=== PATIENT | female | born 1960 | race Caucasian/White ===

== ENCOUNTER 2020-09-19 08:36 | Day surgery (SDC) | payer MEDICAID, SELFPAY ==
[2020-09-12 14:22] VITALS: BMI 27.4
--- NOTE | 2020-09-16 09:32 | HO.ANESPROP2 ---
Documented by User: Zonia Villatoro 09/16/20 09:37 HPI - Anesthesia Eval Consult details Narrative: 59yo F for Upper Endoscopy and Colonoscopy PMFSH Past Medical History Medical History (Updated 09/19/20 @ 09:19 by Liseth Hills RN) Anxiety Arthritis Asthma Back pain Depression DVT (deep venous thrombosis) Former cigarette smoker GERD (gastroesophageal reflux disease) Heart murmur Hepatitis History of celiac disease History of cocaine abuse History of frequent headaches History of heroin abuse HIV (human immunodeficiency virus infection) Hydradenitis Lumbago with sciatica, left side On anticoagulant therapy Panic attacks Parkinson disease PTSD (post-traumatic stress disorder) Recovering alcoholic Seizure Surgical History Surgical History H/O excision of ganglion cyst History of carpal tunnel surgery of left wrist History of hemorrhoidectomy Hx of colonoscopy Hx of esophagogastroduodenoscopy Hx of nasal septoplasty Social History Social History (Updated 09/19/20 @ 09:19 by Leilani Pierre) Are you a primary hemodialysis patient care specialist to a significant other at home: No Do you presently have visiting nurse or other home services: Yes Smoking Status: Former smoker Smoked in Last 30 Days: No Smoking Quit Date: 6 months ago Second Hand Smoke Exposure: Yes Use of substances other than those prescribed or required for medical reasons: No Last Used Substance Other:: Denies any recent drug use Advance Directives: No Advance Directives Information Provided: No Advance Directives on File: No Recently lost weight without trying: No Meds Allergies Allergy/AdvReac Type Severity Reaction Status Date / Time fluoxetine [From PROZAC] Allergy Severe ANNETTE Verified 09/19/20 06:14 cat dander [CATS] Allergy Mild HAYFEVER Verified 09/19/20 06:14 Chocolate Allergy Mild HEADACHES Verified 09/19/20 06:14 dog dander [DOGS] Allergy Mild HAYFEVER Verified 09/19/20 06:14 Environmental Allergy Mild HAYFEVER Uncoded 09/12/20 14:08 Home Medications Medication Instructions Recorded Confirmed Type acetaminophen [Tylenol Ex Str 500 mg PO BID 09/12/20 09/12/20 History Rapid Release] albuterol sulfate [ProAir HFA] 2 puff INHALATION QID PRN 09/12/20 09/12/20 History apixaban [Eliquis] 5 mg PO BID 09/12/20 09/12/20 History carbidopa-levodopa 1 tab PO BID 09/12/20 09/12/20 History cetirizine 10 mg PO DAILY 09/12/20 09/12/20 History cholecalciferol (vitamin D3) 25 mcg PO DAILY 09/12/20 09/12/20 History [Vitamin D3] clonazepam 1 mg PO BID 09/12/20 09/12/20 History diphenhydramine HCl [Benadryl] 25 mg PO BID PRN 09/12/20 09/12/20 History fluticasone propionate [Flonase 2 spray INTRANASAL DAILY 09/12/20 09/12/20 History Allergy Relief] gabapentin 300 mg PO BEDTIME 09/12/20 09/12/20 History omega 9-agt-mmn-fish oil [Fish Oil] 1 cap PO DAILY 09/12/20 09/12/20 History primidone 50 mg PO BEDTIME 09/12/20 09/12/20 History topiramate 200 mg PO BID 09/12/20 09/12/20 History zolpidem 5 mg PO BEDTIME 09/12/20 09/12/20 History Exam Exam Date and Time: September 16, 2020 0932 Height,Weight and Vital Signs: Height 5 ft 2 in Weight 68.039 kg Pertinent Lab Results Pertinent Lab Results: Laboratory Tests 07/06/20 07/06/20 03:15 03:15 WBC 9.4 Hgb 11.4 L Hct 34.6 L Plt Count 225 Sodium 140 Potassium 3.5 Chloride 107 BUN 19 H Creatinine 1.03 Laboratory Tests 08/08/20 08/08/20 11:30 11:30 Urine Opiates Screen NOT DETECTED Ur Barbiturates Screen POSITIVE H Phencyclidine Screen NOT DETECTED Ur Amphetamines Screen NOT DETECTED U Benzodiazepines Scrn NOT DETECTED Cocaine & Metab (GC/MS) negative Urine Cocaine Screen NOT DETECTED U Cannabinoids Screen NOT DETECTED Narrative Narrative: EKG 06/2020: SB@59 Assessment and Plan Assessment Anesthesia Assessment: Chart Reviewed Documented by User: Leilani Pierre 09/19/20 09:22 [facility] Past Medical History Medical History (Updated 09/19/20 @ 09:19 by Liseth Hills RN) Anxiety Arthritis Asthma Back pain Depression DVT (deep venous thrombosis) Former cigarette smoker GERD (gastroesophageal reflux disease) Heart murmur Hepatitis History of celiac disease History of cocaine abuse History of frequent headaches History of heroin abuse HIV (human immunodeficiency virus infection) Hydradenitis Lumbago with sciatica, left side On anticoagulant therapy Panic attacks Parkinson disease PTSD (post-traumatic stress disorder) Recovering alcoholic Seizure Family History Family history of problems with anesthesia: No Surgical History Surgical History H/O excision of ganglion cyst History of carpal tunnel surgery of left wrist History of hemorrhoidectomy Hx of colonoscopy Hx of esophagogastroduodenoscopy Hx of nasal septoplasty History of Problems with Anesthesia: No Social History Social History (Updated 09/19/20 @ 09:19 by Leilani Pierre) Are you a primary hemodialysis patient care specialist to a significant other at home: No Do you presently have visiting nurse or other home services: Yes Smoking Status: Former smoker Smoked in Last 30 Days: No Smoking Quit Date: 6 months ago Second Hand Smoke Exposure: Yes Use of substances other than those prescribed or required for medical reasons: No Last Used Substance Other:: Denies any recent drug use Advance Directives: No Advance Directives Information Provided: No Advance Directives on File: No Recently lost weight without trying: No Meds Allergies Allergy/AdvReac Type Severity Reaction Status Date / Time fluoxetine [From PROZAC] Allergy Severe ANNETTE Verified 09/19/20 06:14 cat dander [CATS] Allergy Mild HAYFEVER Verified 09/19/20 06:14 Chocolate Allergy Mild HEADACHES Verified 09/19/20 06:14 dog dander [DOGS] Allergy Mild HAYFEVER Verified 09/19/20 06:14 Environmental Allergy Mild HAYFEVER Uncoded 09/12/20 14:08 Home Medications Medication Instructions Recorded Confirmed Type acetaminophen [Tylenol Ex Str 500 mg PO BID 09/12/20 09/12/20 History Rapid Release] albuterol sulfate [ProAir HFA] 2 puff INHALATION QID PRN 09/12/20 09/12/20 History apixaban [Eliquis] 5 mg PO BID 09/12/20 09/12/20 History carbidopa-levodopa 1 tab PO BID 09/12/20 09/12/20 History cetirizine 10 mg PO DAILY 09/12/20 09/12/20 History cholecalciferol (vitamin D3) 25 mcg PO DAILY 09/12/20 09/12/20 History [Vitamin D3] clonazepam 1 mg PO BID 09/12/20 09/12/20 History diphenhydramine HCl [Benadryl] 25 mg PO BID PRN 09/12/20 09/12/20 History fluticasone propionate [Flonase 2 spray INTRANASAL DAILY 09/12/20 09/12/20 History Allergy Relief] gabapentin 300 mg PO BEDTIME 09/12/20 09/12/20 History omega 5-nsb-rex-fish oil [Fish Oil] 1 cap PO DAILY 09/12/20 09/12/20 History primidone 50 mg PO BEDTIME 09/12/20 09/12/20 History topiramate 200 mg PO BID 09/12/20 09/12/20 History zolpidem 5 mg PO BEDTIME 09/12/20 09/12/20 History Exam Height,Weight and Vital Signs: Vital Signs Temp Pulse Resp BP Pulse Ox 09/19/20 09:02 98.8 F 69 18 148/80 H 97 Airway Mallampati Class: II TM Dist: >3cm Neck ROM: Full Denture: Upper Partial: Lower Heart: RRR Lungs: CTAB Assessment and Plan Assessment Anesthesia Assessment: Anesthesia Plan Discussed and Chart Reviewed Final Anesthetic Review NPO: Yes ASA Class: III Final Preanesthetic Review: No Changes in Pt Med Stat, Consent Obtained/Reviewed and Anes Risks/Benef Reviewed Patient Risk: Intermediate Procedure Risk: Low Anesthetic Plan Anesthetic Plan: MAC: Disposition: Standard PACU
[2020-09-19 09:02] VITALS: BP 148/80; PULSE 69; RESP 18; TEMP 37.1; O2SAT 97
[2020-09-19] MEDS: Lactated Ringers 1,000 ML 100 ML IVCONT (09:04)
[2020-09-19 10:18] VITALS: BP 122/64; PULSE 72; RESP 14; TEMP 36.1; O2SAT 99
--- NOTE | 2020-09-19 10:29 | PM.OP ---
Brief Operative Note Date of procedure: 09/19/20 Pre-op diagnosis: Celiac disease, Screening, Hx of colon polyps Post-op diagnosis: other (Small hiatal hernia, colon polyps , diverticulosis, internal hemorrhoids) Procedure: EGD with biopsy. Colonoscopy to cecum and TI with biopsy, snare polypectomy, and placement of a Resolution clip on the rectal polypectomy site Surgeon: Boris Quinones Anesthesia: MAC Estimated blood loss (mL): 4.0 Pathology: other (A. Descending duodenum B. Ascending colon polyp C. Transverse colon polyp D. Rectal polyp) Condition: stable Disposition: PACU
[2020-09-19 10:36] VITALS: BP 123/47; PULSE 71; RESP 18; O2SAT 99
--- NOTE | 2020-09-19 10:48 | OP_ITS ---
SURGEON: Boris Quinones MD INDICATIONS: Full consent has been obtained from her for this, including risks of bleeding and perforation. PREOPERATIVE DIAGNOSIS: POSTOPERATIVE DIAGNOSIS: PROCEDURE PERFORMED: Esophagogastroduodenoscopy with biopsies, and colonoscopy to the cecum and terminal ileum with snare polypectomy, biopsy and removal of polyps, and placement of a resolution clip. ESTIMATED BLOOD LOSS: COMPLICATIONS: ANESTHESIA: Monitored anesthesia care. ASSISTANTS: SPECIMENS: PREOPERATIVE DIAGNOSES: History of celiac disease, personal history of tubular adenoma of the colon, colorectal cancer screening. POSTOPERATIVE DIAGNOSES: History of celiac disease, personal history of tubular adenoma of the colon, colorectal cancer screening, small hiatal hernia, colon polyps, diverticulosis, internal hemorrhoids. DESCRIPTION OF PROCEDURE: The patient was placed in the left lateral decubitus position. The Olympus video gastroscope was passed in the posterior oropharynx and upper esophagus under direct vision. The scope was passed slowly into the distal esophagus. The gastroesophageal junction appeared normal at 38 cm. There was no sign of any esophagitis nor Claudio's esophagus. The scope was entered into the stomach. There was a small hiatal hernia. The scope was advanced to pylorus and duodenum cannulated to the descending portion. The duodenum including the bulb was carefully inspected and appeared grossly normal. I did not really appreciate any sign of scalloping. Biopsies were obtained from the 2nd and 3rd portions of duodenum. The scope was withdrawn back in the stomach. The gastric antrum and body appeared normal with good peristalsis. The scope was retroflexed visualizing the proximal stomach carefully which appeared normal, without any sign of mass or ulceration. The scope was straightened and withdrawn back into the esophagus. The esophageal mucosa appeared normal. The scope was withdrawn from the patient. She was turned around for the colonoscopy. The digital rectal exam revealed no abnormalities. The Olympus video pediatric colonoscope was entered into the rectum and advanced easily to the cecum. Once in the cecum, I did identify normal-appearing cecal pouch with appendiceal orifice and a normal-appearing ileocecal valve. The terminal ileum was cannulated and appeared normal. The scope was withdrawn back in the colon. The entire cecum and ileocecal valve appeared normal. The scope was slowly withdrawn assessing all mucosal surfaces carefully. Preparation was excellent. In the ascending colon and in the transverse colon, were flat approximately 4 mm polyp, which both biopsied and completely removed with cold biopsy forceps. There was a mild amount of sigmoid diverticulosis. I did not visualize any sign of colitis nor angiodysplasia. In the rectum, in the forward viewing position, was an approximately 6 mm grossly adenomatous polyp, which was snared and recovered by suction. The polypectomy site appeared clean, without any sign of residual polyp nor bleeding. The scope was retroflexed visualizing some internal hemorrhoids, but no other pathology. The scope was straightened. A single resolution clip was placed on the polypectomy site due to the fact that she has to go back on her Eliquis. There was good deployment and good hemostasis. The scope was withdrawn from the patient. She tolerated the procedure well and was returned to the recovery area in stable condition. IMPRESSION: 1. Small hiatal hernia, history of celiac disease. 2. Colon polyps, status post biopsy and removal, and snare polypectomy. 3. Diverticulosis. 4. Internal hemorrhoids. PLAN: The results of the pathology will be checked. I would recommend a repeat colonoscopy in 5 years for further screening. She was advised to try to stay on a gluten free diet. She was advised to resume her Eliquis in 48 hours. Given that she has to go back on Eliquis, she was advised that it would be best that she stay off all aspirin and NSAID products long-term. She was advised to see me as needed. MD STEWART Baron/YANIRA / [phone] MTDD
[2020-09-19 10:53] VITALS: BP 130/71; PULSE 70; RESP 16; TEMP 36.5; O2SAT 99
--- NOTE | 2020-09-19 11:05 | HO.POSTANES ---
Post Anesthesia Evaluation Post Anesthesia Evaluation Vital Signs: Vital Signs Temp Pulse Resp BP Pulse Ox 09/19/20 10:53 97.7 F 70 16 130/71 99 09/19/20 10:36 71 18 123/47 L 99 09/19/20 10:18 96.9 F 72 14 122/64 99 09/19/20 09:02 98.8 F 69 18 148/80 H 97 Anesthesia: Monitored Mental Status: Awake Pain Control: Satisfactory Nausea/Vomiting: None Hydration: Adequate Anesthesia-Related Issues: No Anes. Related Issues
== END 2020-09-19 11:35 | disposition home or self-care (01) ==
PROVIDERS: PCP Emergency Medicine; Visit Provider Internal Medicine
PROC: (CPT 45385; principal; 2020-09-19 09:40)
DX: Z12.11 Encounter for screening for malignant neoplasm of colon (principal); Z86.010 Personal history of colon polyps; D12.2 Benign neoplasm of ascending colon; D12.3 Benign neoplasm of transverse colon; D12.8 Benign neoplasm of rectum; K57.30 Diverticulosis of large intestine without perforation or abscess without bleeding; K64.8 Other hemorrhoids; K90.0 Celiac disease; K29.80 Duodenitis without bleeding; K44.9 Diaphragmatic hernia without obstruction or gangrene; G20 Parkinson's disease; J45.909 Unspecified asthma, uncomplicated; Z79.51 Long term (current) use of inhaled steroids; Z79.01 Long term (current) use of anticoagulants; Z79.899 Other long term (current) drug therapy; F10.20 Alcohol dependence, uncomplicated; Z87.891 Personal history of nicotine dependence
CPT/HCPCS: 45385; 45380; 43239; 88305; J2370

== ENCOUNTER 2020-09-22 08:07 | Outpatient (REF) | payer MEDICAID, SELFPAY ==
--- NOTE | 2020-09-22 | US_ITS ---
EXAMINATION: MM DIAGNOSTIC DIGITAL BREAST TOMOSYNTHESIS, BILATERAL US TARGETED BREAST, LEFT CLINICAL INFORMATION: Left breast pain and palpable abnormality. Screening right breast study. The lifetime risk of breast cancer based on the Tyrer-Cuzick Model is 6.3%. COMPARISON: Mammography: 09/09/2019 and studies dating back to 12/27/2014 TECHNIQUE: Digital breast tomosynthesis is performed in both the craniocaudal and mediolateral oblique views along with computer-aided detection (CAD). Synthesized 2D images are generated from the tomosynthesis. Targeted left breast ultrasound. FINDINGS: There are scattered areas of fibroglandular density (ACR BI-RADS breast composition Category b). There are no significant masses, abnormal calcifications, or other abnormalities. Targeted ultrasound evaluation in region of pain and palpable abnormality did not demonstrate any abnormal mass or region of abnormal distal sound shadowing. Results are provided to the patient at time of visit by the technologist. US/US breast LT limited IMPRESSION: There are no significant changes from prior study. No ultrasound or mammographic abnormality in region of pain or palpable region upper outer aspect of the left breast. ASSESSMENT: BI-RADS 1: Negative. RECOMMENDATION: Routine annual mammography screening due in 12 months. Clinical followup for pain and palpable abnormality not imaged on ultrasound or mammography. This patient's information was entered into a reminder system with a target due date for their next mammogram.
--- NOTE | 2020-09-22 08:12 | MM_ITS ---
EXAMINATION: MM DIAGNOSTIC DIGITAL BREAST TOMOSYNTHESIS, BILATERAL US TARGETED BREAST, LEFT CLINICAL INFORMATION: Left breast pain and palpable abnormality. Screening right breast study. The lifetime risk of breast cancer based on the Tyrer-Cuzick Model is 6.3%. COMPARISON: Mammography: 09/09/2019 and studies dating back to 12/27/2014 TECHNIQUE: Digital breast tomosynthesis is performed in both the craniocaudal and mediolateral oblique views along with computer-aided detection (CAD). Synthesized 2D images are generated from the tomosynthesis. Targeted left breast ultrasound. FINDINGS: There are scattered areas of fibroglandular density (ACR BI-RADS breast composition Category b). There are no significant masses, abnormal calcifications, or other abnormalities. Targeted ultrasound evaluation in region of pain and palpable abnormality did not demonstrate any abnormal mass or region of abnormal distal sound shadowing. Results are provided to the patient at time of visit by the technologist. MM/MM tomosynthesis diagnostic BI IMPRESSION: There are no significant changes from prior study. No ultrasound or mammographic abnormality in region of pain or palpable region upper outer aspect of the left breast. ASSESSMENT: BI-RADS 1: Negative. RECOMMENDATION: Routine annual mammography screening due in 12 months. Clinical followup for pain and palpable abnormality not imaged on ultrasound or mammography. This patient's information was entered into a reminder system with a target due date for their next mammogram.
== END 2020-09-22 08:08 | disposition home or self-care (01) ==
LOC: HO.MAMMO 08:07
PROVIDERS: PCP Advanced Practice Midwife; Visit Provider Advanced Practice Midwife
DX: N64.4 Mastodynia (principal); N63.20 Unspecified lump in the left breast, unspecified quadrant; Z12.31 Encounter for screening mammogram for malignant neoplasm of breast
CPT/HCPCS: 76642; 77062; 77066

== ENCOUNTER → 2020-10-03 08:46 | Outpatient (BNVA) | payer MEDICAID, SELFPAY | PROVIDERS: PCP Internal Medicine; Visit Provider Anesthesiology | DX: M47.816 Spondylosis without myelopathy or radiculopathy, lumbar region (principal); M47.812 Spondylosis without myelopathy or radiculopathy, cervical region; G62.9 Polyneuropathy, unspecified; F14.10 Cocaine abuse, uncomplicated; Z79.899 Other long term (current) drug therapy | CPT/HCPCS: 99202 ==

== ENCOUNTER 2020-10-10 23:38 | Emergency (ER) | payer MEDICAID, SELFPAY ==
[2020-10-10 23:43] VITALS: BP 146/75; PULSE 79; RESP 16; TEMP 36.7; O2SAT 98; BMI 28.3
--- NOTE | 2020-10-11 00:04 | ECG_ITS ---
Test Reason : CHEST WALL PAIN Blood Pressure : / mmHG Vent. Rate : 062 BPM Atrial Rate : 062 BPM P-R Int : 160 ms QRS Dur : 078 ms QT Int : 402 ms P-R-T Axes : 052 052 045 degrees QTc Int : 408 ms Normal sinus rhythm Normal ECG When compared with ECG of 06-JUL-2020 00:46, No significant change was found Referred By: Generic ED Physician Electronically Signed By:KERRI SOARES MD
--- NOTE | 2020-10-11 00:25 | XR_ITS ---
EXAMINATION: XR CHEST CLINICAL INFORMATION: Chest wall pain COMPARISON: 07/01/2020 TECHNIQUE: Frontal view of the chest was obtained. FINDINGS: Cardiac leads overlie the chest. The lungs are well expanded. There is no focal consolidation, edema, or effusion. No pneumothorax. The cardiomediastinal silhouette is within normal limits. No acute osseous abnormality. XR/XR chest 1V IMPRESSION: No acute pulmonary finding. No focal osseous abnormality identified.
[2020-10-11 00:41] LABS: Basophils Absolute Auto 0.1 X10*3/uL (0.0-0.2); Basophils Percent Auto 0.8 % (0-2); Eosinophils Absolute Auto 0.1 X10*3/uL (0.0-0.4); Eosinophils Percent Auto 1.7 % (0-4); Hematocrit 34.7 % (37-47); Hemoglobin 11.5 g/dl (12.0-16.0); Imm Gran Abs Auto 0.02 X10*3/uL (0.00-0.03); Imm Gran Pct Auto 0.3 % (0.0-0.4); Lymphocytes Absolute Auto 2.2 X10*3/uL (1.2-4.9); Lymphocytes Percent Auto 30.2 % (20-40); MANUAL DIFF FLAG NO; Mean Corpuscular HGB Conc 33.1 g/dl (31.0-35.0); Mean Corpuscular Hemoglobin 33.1 pg (27.0-33.0); Mean Platelet Volume 9.5 fL (9.4-12.3); Monocytes Absolute Auto 0.8 X10*3/uL (0.1-1.2); Monocytes Percent Auto 10.9 % (2-11); Neutrophils Absolute Auto 4.1 X10*3/uL (2.0-8.3); Neutrophils Percent Auto 56.1 % (45-73); Platelet Count 249 X10*3/uL (160-400); Red Blood Count 3.47 X10*6/uL (4.20-5.50); White Blood Count 7.3 X10*3/uL (4.8-10.8)
[2020-10-11 01:06] LABS: Anion Gap 11 (12-20); Blood Urea Nitrogen 18 mg/dL (9-16); Calcium 8.7 mg/dL (8.4-10.2); Carbon Dioxide 22 mmol/L (22-29); Chloride 109 mmol/L (96-108); Creatinine Clr Calc Pharmacy 48.6; Estimated Glomerular Filt Rate 49; Glucose Random 93 mg/dL (60-115); Potassium 4.3 mmol/l (3.3-5.1); Sodium 138 mmol/L (135-145)
[2020-10-11 01:11] LABS: Troponin-I High Sensitivity 5.3 ng/L (<3.5-17.0)
[2020-10-11 01:57] VITALS: BP 141/73; PULSE 68; RESP 15; TEMP 36.9; O2SAT 95
--- NOTE | 2020-10-11 01:59 | ED.GENADULT ---
HPI - General Adult General Chief complaint: General Medical Stated complaint: SHOCKING FEELING IN CHEST Time Seen by Provider: 10/11/20 00:42 Source: patient Mode of arrival: ambulatory Limitations: no limitations History of Present Illness HPI narrative: Patient states for the past 24 hours has been having intermittent shock-like the pain to her central chest. Denies nausea vomiting denies diaphoresis denies dizziness. Patient states intermittent electricity lasting seconds. Came in tonight secondary to pain continue you. Denies radiation MD complaint: Chest pain Onset (ago): day(s) (24 hours) Location: chest Radiation: non-radiation Severity: moderate Severity scale (1-10): 5 Quality: other Exacerbating factors: none Related Data Home Medications Medication Instructions Recorded Confirmed acetaminophen [Tylenol Ex Str 500 mg PO BID 09/12/20 10/11/20 Rapid Release] albuterol sulfate [ProAir HFA] 2 puff INHALATION QID PRN 09/12/20 10/11/20 apixaban [Eliquis] 5 mg PO BID 09/12/20 10/11/20 carbidopa-levodopa 1 tab PO BID 09/12/20 10/11/20 cetirizine 10 mg PO DAILY 09/12/20 10/11/20 cholecalciferol (vitamin D3) 25 mcg PO DAILY 09/12/20 10/11/20 [Vitamin D3] clonazepam 1 mg PO BID 09/12/20 10/11/20 diphenhydramine HCl [Benadryl] 25 mg PO BID PRN 09/12/20 10/11/20 fluticasone propionate [Flonase 2 spray INTRANASAL DAILY 09/12/20 10/11/20 Allergy Relief] gabapentin 300 mg PO BEDTIME 09/12/20 10/11/20 omega [id number]-fish oil [Fish Oil] 1 cap PO DAILY 09/12/20 10/11/20 primidone 50 mg PO BEDTIME 09/12/20 10/11/20 topiramate 200 mg PO BID 09/12/20 10/11/20 zolpidem 5 mg PO BEDTIME 09/12/20 10/11/20 Previous Rx's Medication Instructions Recorded magnesium oxide 500 mg capsule 500 mg PO DAILY 30 Days #30 cap 10/03/20 Allergies Allergy/AdvReac Type Severity Reaction Status Date / Time fluoxetine [From PROZAC] Allergy Severe ANNETTE Verified 09/19/20 06:14 cat dander [CATS] Allergy Mild HAYFEVER Verified 09/19/20 06:14 Chocolate Allergy Mild HEADACHES Verified 09/19/20 06:14 dog dander [DOGS] Allergy Mild HAYFEVER Verified 09/19/20 06:14 Environmental Allergy Mild HAYFEVER Uncoded 09/12/20 14:08 Review of Systems Review of Systems: Constitutional : No Weight loss, No Fever, No Chills, No Night Sweats, No Fatigue, No Malaise ENT/Mouth : No Hearing loss, No Ear Pain, No Nasal Congestion, No Sinus Pain, No Hoarseness, No sore throat, No Rhinorrhea, No Swallowing Difficulty Eyes: No Eye Pain, No Swelling, No Redness, No Foreign Body, No Discharge, No Vision Changes Cardiovascular : Positive Chest Pain, No SOB, No Dyspnea on Exertion, No Orthopnea, No Edema, No Palpitations Respiratory : No Cough, No Sputum, No Wheezing, No Smoke Exposure, No Dyspnea Gastrointestinal : No Nausea, No Vomiting, No Diarrhea, No Constipation, No abdominal Pain, No Hematochezia, No Melena Genitourinary : no irregular bleeding, No Dysuria, No Urinary Frequency, No Hematuria, No Urinary Incontinence, No Urgency, No Flank Pain, No Urinary Flow Changes, No Hesitancy Musculoskeletal : No joint pain, No Myalgias, No Joint Swelling Skin : No Skin Lesions, No rash Neuro : No Weakness, No Numbness, No Paresthesias, No Loss of Consciousness, No Dizziness, No Headache Psych : No Anxiety/Panic, No Depression, No SI/HI/AH/VH, No Social Issues, Heme/Lymph: No Bruising, No Bleeding,No Lymphadenopathy Endocrine : No Polyuria, No Polydipsia, No Temperature Intolerance [facility] Past Medical History Medical History Alcohol abuse Anxiety Arthritis Asthma Back pain Cocaine abuse Depression DVT (deep venous thrombosis) Former cigarette smoker GERD (gastroesophageal reflux disease) Heart murmur Hepatitis History of celiac disease History of cocaine abuse History of frequent headaches History of heroin abuse HIV (human immunodeficiency virus infection) Hydradenitis Lumbago with sciatica, left side On anticoagulant therapy Panic attacks Parkinson disease Peripheral polyneuropathy PTSD (post-traumatic stress disorder) Recovering alcoholic Seizure Spondylosis of cervical spine Spondylosis of lumbar spine Surgical History H/O excision of ganglion cyst History of carpal tunnel surgery of left wrist History of hemorrhoidectomy Hx of colonoscopy Hx of esophagogastroduodenoscopy Hx of nasal septoplasty Social History Social History Alcohol intake: former Smoking Status: Light tobacco smoker Smoked in Last 30 Days: Yes Second Hand Smoke Exposure: Yes Use of substances other than those prescribed or required for medical reasons: No Advance Directives: No Physical Exam Vital Signs: Vital Signs: Last Vital Signs Temp 98.4 F 10/11/20 01:57 Pulse 79 10/11/20 03:22 Resp 16 10/11/20 03:22 BP 152/85 H 10/11/20 03:22 Pulse Ox 98 10/11/20 03:22 Body Mass Index 28.3 Pulse ox normal interpreted by me. 95% on room air Appearance: Alert. Oriented X3. No acute distress. Eyes: Pupils equal, round and reactive to light. ENT: Pharynx normal. Neck: Normal inspection. Neck supple. No lymph nodes noted. No crepitus CVS: Normal heart rate and rhythm. Pulses normal. Normal S1 and S2 Respiratory: No respiratory distress. Breath sounds normal. No Wheezing. No rales Abdomen: Soft and nontender. No rigidity. No distention. good BS x4 Skin: Skin warm and dry. Normal skin color. Normal skin turgor. Extremities: No lower extremity edema. Neurovascular intact to all extremities. No Lacerations. No Rash Neuro: Oriented X 3. No motor deficit. No sensory deficit. Moving all extermities. No slurred speech. Course Reevaluation(s) Reevaluation #1: Repeat exam without pain to chest. Medical Decision Making MDM Narrative Medical decision making narrative: 60-year-old female with complaints of chest pain for more than 24 hours. Troponin x2 negative EKG negative chest x-ray negative. Mother patient was in the emergency department experience 1 for her electric shocks however there was no changes on monitor. I doubt this point patient has acute coronary syndrome. No shortness of breath and did not pursue the diagnosis of pulmonary embolism will discharge with follow-up with primary care doctor Differential Diagnosis Differential Diagnosis: Acute coronary syndrome pneumonia pneumothorax Lab Data Lab results reviewed: Yes I reviewed the patient's lab results. Result diagrams: 10/11/20 00:36 10/11/20 00:36 Labs: Lab Results 10/11/20 10/11/20 10/11/20 Range/Units 00:36 00:36 00:36 WBC 7.3 (4.8-10.8) X10*3/uL RBC 3.47 L (4.20-5.50) X10*6/uL Hgb 11.5 L (12.0-16.0) g/dl Hct 34.7 L (37-47) % MCV 100.0 H (80-98) fL MCH 33.1 H (27.0-33.0) pg MCHC 33.1 (31.0-35.0) g/dl RDW 14.0 (11.0-16.0) % Plt Count 249 (160-400) X10*3/uL MPV 9.5 (9.4-12.3) fL Immature Gran % (Auto) 0.3 (0.0-0.4) % Neut % (Auto) 56.1 (45-73) % Lymph % (Auto) 30.2 (20-40) % [place] % (Auto) 10.9 (2-11) % Eos % (Auto) 1.7 (0-4) % Baso % (Auto) 0.8 (0-2) % Lymph # (Auto) 2.2 (1.2-4.9) X10*3/uL [place] # (Auto) 0.8 (0.1-1.2) X10*3/uL Eos # (Auto) 0.1 (0.0-0.4) X10*3/uL Baso # (Auto) 0.1 (0.0-0.2) X10*3/uL Abs Immat Gran (auto) 0.02 (0.00-0.03) X10*3/uL Absolute Neuts (auto) 4.1 (2.0-8.3) X10*3/uL Absolute Nucleated RBC 0.000 (0.0-0.012) X10*3/uL Nucleated RBC % (auto) 0.0 (0.0-0.2) /100WBC Hold Blue Top SEE NOTE Sodium (135-145) mmol/L Potassium (3.3-5.1) mmol/l Chloride (96-108) mmol/L Carbon Dioxide (22-29) mmol/L Anion Gap (12-20) BUN (9-16) mg/dL Creatinine (0.5-1.4) mg/dL Estim Creat Clear Calc Estimated GFR Random Glucose (60-115) mg/dL Calcium (8.4-10.2) mg/dL Troponin I High Sens 5.3 (<3.5-17.0) ng/L 10/11/20 10/11/20 Range/Units 00:36 02:43 WBC (4.8-10.8) X10*3/uL RBC (4.20-5.50) X10*6/uL Hgb (12.0-16.0) g/dl Hct (37-47) % MCV (80-98) fL MCH (27.0-33.0) pg MCHC (31.0-35.0) g/dl RDW (11.0-16.0) % Plt Count (160-400) X10*3/uL MPV (9.4-12.3) fL Immature Gran % (Auto) (0.0-0.4) % Neut % (Auto) (45-73) % Lymph % (Auto) (20-40) % [place] % (Auto) (2-11) % Eos % (Auto) (0-4) % Baso % (Auto) (0-2) % Lymph # (Auto) (1.2-4.9) X10*3/uL [place] # (Auto) (0.1-1.2) X10*3/uL Eos # (Auto) (0.0-0.4) X10*3/uL Baso # (Auto) (0.0-0.2) X10*3/uL Abs Immat Gran (auto) (0.00-0.03) X10*3/uL Absolute Neuts (auto) (2.0-8.3) X10*3/uL Absolute Nucleated RBC (0.0-0.012) X10*3/uL Nucleated RBC % (auto) (0.0-0.2) /100WBC Hold Blue Top Sodium 138 (135-145) mmol/L Potassium 4.3 (3.3-5.1) mmol/l Chloride 109 H (96-108) mmol/L Carbon Dioxide 22 (22-29) mmol/L Anion Gap 11 L (12-20) BUN 18 H (9-16) mg/dL Creatinine 1.13 (0.5-1.4) mg/dL Estim Creat Clear Calc 48.6 Estimated GFR 49 Random Glucose 93 (60-115) mg/dL Calcium 8.7 (8.4-10.2) mg/dL Troponin I High Sens 3.7 (<3.5-17.0) ng/L ECG Data Attestation: I personally reviewed and interpreted this ECG as follows: Pacemaker model: 62 beats per minute. Normal sinus rhythm. Normal axis. No ST-T changes Discharge Plan Discharge Clinical Impression: Chest pain Qualifiers: Chest pain type: unspecified Qualified Code(s): R07.9 - Chest pain, unspecified Patient Disposition: Home, Self-Care Instructions: Chest Pain (ED) Additional Instructions: Thank you for visiting the emergency department today. If your symptoms worsen or do not resolve completely please return to the emergency department immediately or call 911. if he have any questions please call your primary care physician Prescriptions: No Action primidone 50 mg Tablet 50 mg PO BEDTIME RF: 0 carbidopa-levodopa 25-100 mg Tablet Extended Release 1 tab PO BID RF: 0 cetirizine 10 mg Tablet 10 mg PO DAILY RF: 0 clonazepam 1 mg Tablet 1 mg PO BID RF: 0 acetaminophen [Tylenol Ex Str Rapid Release] 500 mg Tablet 500 mg PO BID RF: 0 diphenhydramine HCl [Benadryl] 25 mg Capsule 25 mg PO BID PRN (Reason: Allergic Symptoms) RF: 0 topiramate 200 mg Tablet 200 mg PO BID RF: 0 zolpidem 5 mg Tablet 5 mg PO BEDTIME RF: 0 albuterol sulfate [ProAir HFA] 90 mcg/actuation Hfa Aerosol Inhaler 2 puff INHALATION QID PRN (Reason: Wheezing) RF: 0 fluticasone propionate [Flonase Allergy Relief] 50 mcg/actuation [place],Suspension 2 spray INTRANASAL DAILY RF: 0 cholecalciferol (vitamin D3) [Vitamin D3] 25 mcg (1,000 unit) Capsule 25 mcg PO DAILY RF: 0 gabapentin 300 mg Tablet 300 mg PO BEDTIME RF: 0 omega 2-gza-udc-fish oil [Fish Oil] 1,000 mg (120 mg-180 mg) Capsule 1 cap PO DAILY RF: 0 Eliquis 5 mg Tablet 5 mg PO BID RF: 0 magnesium oxide 500 mg capsule 500 mg PO DAILY 30 Days Qty: 30 RF: 12 Referrals: [facility] [Provider Group] - 2 days Interventions: ED Discharge Assessment Last Done: 10/11/20 03:37 Discharge Date/Time: 10/11/20 03:46
[2020-10-11 03:15] LABS: Troponin-I High Sensitivity 3.7 ng/L (<3.5-17.0)
[2020-10-11 03:22] VITALS: BP 152/85; PULSE 79; RESP 16; O2SAT 98
== END 2020-10-11 03:46 | disposition home or self-care (01) ==
PROVIDERS: Emergency Provider Emergency Medicine; PCP General Practice
DX: R07.9 Chest pain, unspecified (principal); F17.200 Nicotine dependence, unspecified, uncomplicated; Z71.6 Tobacco abuse counseling; Z79.899 Other long term (current) drug therapy
CPT/HCPCS: 36415; 71045; 80048; 84484; 85025; 93005; 99284

== ENCOUNTER 2020-12-07 10:48 | Outpatient (REF) | payer MEDICAID, SELFPAY ==
--- NOTE | 2020-12-07 10:57 | XR_ITS ---
EXAMINATION: XR CHEST AND RIGHT RIBS XR CERVICAL SPINE XR LUMBAR SPINE XR SACRUM AND COCCYX CLINICAL INFORMATION: Injury lower back, neck pain, right rib pain. COMPARISON: Chest x-ray of 10/11/2020, cervical spine of 06/27/2020 and lumbar spine of 07/01/2020. TECHNIQUE: PA chest and three-view right ribs. Three-view lumbar spine. Three-view sacrum and coccyx. 5 view cervical spine. FINDINGS: PA film of the chest does not demonstrate any evidence of acute parenchymal disease, pneumothorax, or pleural effusion. Heart normal size. No evidence of pulmonary edema. Views of the right ribs do not demonstrate any evidence of acute displaced fracture. No destructive bony lesions identified. No acute sacral or coccygeal fracture is appreciated. No widening or fusion of the sacroiliac joints is identified. No destructive bony lesion identified. There are 5 nonrib-bearing lumbar vertebra. There is bilateral facet arthropathy and sclerosis seen L5-S1. No acute fractures identified. No spondylolisthesis is seen. Disc spaces are maintained. Pedicles intact. No destructive bony lesions. Views of the cervical spine do not demonstrate any abnormal prevertebral soft tissue swelling. No acute cervical spine fracture is identified. There is mild narrowing of the disc spaces C4 trough C7. There is some spurring of the joints of [place] causing some mild anterior neural foramina encroachment on the right at the C5-C6 level and on the left at the C6-C7 level. XR/XR ribs RT min 3V w CXR1V IMPRESSION: Cervical spondylosis without acute fracture C4 through C7. No acute parenchymal disease within the chest. No right-sided displaced rib fracture or destructive bony lesion identified. No significant sacral or coccygeal abnormality appreciated. Facet arthropathy bilaterally L5-S1 without evidence of acute fracture, spondylolisthesis, or spondylolysis of the lumbar spine.
--- NOTE | 2020-12-07 11:00 | XR_ITS ---
EXAMINATION: XR CHEST AND RIGHT RIBS XR CERVICAL SPINE XR LUMBAR SPINE XR SACRUM AND COCCYX CLINICAL INFORMATION: Injury lower back, neck pain, right rib pain. COMPARISON: Chest x-ray of 10/11/2020, cervical spine of 06/27/2020 and lumbar spine of 07/01/2020. TECHNIQUE: PA chest and three-view right ribs. Three-view lumbar spine. Three-view sacrum and coccyx. 5 view cervical spine. FINDINGS: PA film of the chest does not demonstrate any evidence of acute parenchymal disease, pneumothorax, or pleural effusion. Heart normal size. No evidence of pulmonary edema. Views of the right ribs do not demonstrate any evidence of acute displaced fracture. No destructive bony lesions identified. No acute sacral or coccygeal fracture is appreciated. No widening or fusion of the sacroiliac joints is identified. No destructive bony lesion identified. There are 5 nonrib-bearing lumbar vertebra. There is bilateral facet arthropathy and sclerosis seen L5-S1. No acute fractures identified. No spondylolisthesis is seen. Disc spaces are maintained. Pedicles intact. No destructive bony lesions. Views of the cervical spine do not demonstrate any abnormal prevertebral soft tissue swelling. No acute cervical spine fracture is identified. There is mild narrowing of the disc spaces C4 trough C7. There is some spurring of the joints of [place] causing some mild anterior neural foramina encroachment on the right at the C5-C6 level and on the left at the C6-C7 level. XR/XR sacrum coccyx min 2V IMPRESSION: Cervical spondylosis without acute fracture C4 through C7. No acute parenchymal disease within the chest. No right-sided displaced rib fracture or destructive bony lesion identified. No significant sacral or coccygeal abnormality appreciated. Facet arthropathy bilaterally L5-S1 without evidence of acute fracture, spondylolisthesis, or spondylolysis of the lumbar spine.
== END 2020-12-07 10:49 | disposition home or self-care (01) ==
LOC: HO.XRAY 10:48
PROVIDERS: PCP General Practice; Visit Provider Emergency Medicine
DX: M54.2 Cervicalgia (principal); R07.89 Other chest pain; S39.92XA Unspecified injury of lower back, initial encounter
CPT/HCPCS: 71101; 72052; 72100; 72220

== ENCOUNTER 2020-12-09 07:19 | Outpatient (REF) | payer MEDICAID, SELFPAY ==
--- NOTE | 2020-12-09 07:27 | CT_ITS ---
EXAMINATION: CT CHEST SCREENING CLINICAL INFORMATION: Nicotine dependence. COMPARISON: Chest x-ray 10/11/2020 TECHNIQUE: Multidetector volumetric CT imaging of the chest is performed without contrast using low dose technique. Additional 2D coronal and sagittal reformatted images and axial 3D maximum intensity projection (MIP) images are generated on the CT workstation. This CT examination was performed using dose optimization techniques as appropriate, variously including the following: *Automated exposure control *Adjustment of mA and/or kV according to patient size (this includes techniques or standardized protocols for targeted exams where dose is matched to indication/reason for exam; i.e. extremities or head) *Use of iterative reconstruction technique DLP: 41 mGy-cm FINDINGS: LUNGS: The lungs are well expanded with patchy parenchymal atelectatic changes in the right middle lobe and lingula. No consolidation seen. There are small calcified and noncalcified nodules seen. A 5 mm noncalcified nodule in the left upper lobe adjacent to the major fissure axial image 67/5. Several punctate 2 mm calcified nodules in the right upper lobe image 104/5, centrally in the right upper lobe image 116/5, left upper lobe anterior segment image 164/5, 1 mm nodule in the right upper lobe anterior segment image 206/5,] 235/5. MEDIASTINUM: The thyroid lobes are symmetrical and normal. The central trachea and the bronchi are widely patent. There is atherosclerotic calcification of the thoracic arch but without aneurysmal dilatation. The heart size is normal. No pericardial effusion seen. No abnormal mediastinal lymph nodes or mass seen. PLEURA: There is no pleural thickening, effusion or calcification AXILLA: No lymphadenopathy. UPPER ABDOMEN: The visualized liver, spleen, pancreas, and bilateral adrenal glands are unremarkable. OSSEOUS STRUCTURES: Unremarkable. CT/CT lung screening IMPRESSION: Punctate 2 mm calcified pulmonary nodules. The largest noncalcified pulmonary nodule is 5 mm in left upper lobe. ASSESSMENT: Lung-RADS category 2: Benign. RECOMMENDATION: Low-dose annual CT chest.
== END 2020-12-09 07:20 | disposition home or self-care (01) ==
LOC: HO.CT 07:19
PROVIDERS: Visit Provider Surgery
DX: Z12.2 Encounter for screening for malignant neoplasm of respiratory organs (principal); F17.210 Nicotine dependence, cigarettes, uncomplicated
CPT/HCPCS: 71271

== ENCOUNTER 2020-12-14 07:59 | Outpatient (REF) | payer MEDICAID, SELFPAY ==
[2020-12-17 05:57] LABS: HPV mRNA E6/E7 rflx Not Detected (Not Detected)
== END 2020-12-14 08:00 | disposition home or self-care (01) ==
LOC: HO.LAB 07:59
PROVIDERS: PCP General Practice; Visit Provider Obstetrics & Gynecology
DX: Z01.419 Encounter for gynecological examination (general) (routine) without abnormal findings (principal)
CPT/HCPCS: 36415; 87624; 88142

== ENCOUNTER 2020-12-16 08:46 | Day surgery (SDC) | payer MEDICAID, SELFPAY ==
[2020-12-12 11:10] VITALS: BMI 27.6
--- NOTE | 2020-12-12 15:11 | HO.ANESPROP2 ---
Documented by User: Zonia Christineney 12/12/20 15:22 HPI - Anesthesia Eval Consult details Narrative: 60yo F for Therapeutic Medial Branch Block,L3,L4,DR Nikia Cook for DVT h/o polysub. ? last used cocaine PMFSH Past Medical History Medical History Alcohol abuse Anxiety Arthritis Asthma Back pain Cocaine abuse Depression DVT (deep venous thrombosis) Former cigarette smoker GERD (gastroesophageal reflux disease) Heart murmur Hepatitis History of celiac disease History of cocaine abuse History of frequent headaches History of heroin abuse HIV (human immunodeficiency virus infection) Hydradenitis Lumbago with sciatica, left side On anticoagulant therapy Panic attacks Parkinson disease Peripheral polyneuropathy PTSD (post-traumatic stress disorder) Recovering alcoholic Seizure Spondylosis of cervical spine Spondylosis of lumbar spine Surgical History Surgical History H/O excision of ganglion cyst History of carpal tunnel surgery of left wrist History of hemorrhoidectomy Hx of colonoscopy Hx of esophagogastroduodenoscopy Hx of nasal septoplasty Social History Social History Are you a primary hospice care consultant to a significant other at home: No Alcohol intake: former Year quit: 2003 Smoking Status: Former smoker Years Smoked: Years Smoked in Last 30 Days: No Smoking Quit Date: 04/2020 Second Hand Smoke Exposure: Yes Use of substances other than those prescribed or required for medical reasons: No Substance Use Type: Crack/Cocaine and Heroin Advance Directives: No Advance Directives Information Provided: No Advance Directives on File: No Meds Allergies Allergy/AdvReac Type Severity Reaction Status Date / Time fluoxetine [From PROZAC] Allergy Severe ANNETTE Verified 12/14/20 08:23 cat dander [CATS] Allergy Mild HAYFEVER Verified 12/14/20 08:23 Chocolate Allergy Mild HEADACHES Verified 12/14/20 08:23 dog dander [DOGS] Allergy Mild HAYFEVER Verified 12/14/20 08:23 Environmental Allergy Mild HAYFEVER Uncoded 12/14/20 08:23 Home Medications Medication Instructions Recorded Confirmed Type acetaminophen [Tylenol Ex Str 500 mg PO BID 09/12/20 12/12/20 History Rapid Release] albuterol sulfate [ProAir HFA] 2 puff INHALATION QID PRN 09/12/20 12/12/20 History apixaban [Eliquis] 5 mg PO BID 09/12/20 12/12/20 History carbidopa-levodopa 1 tab PO BEDTIME 09/12/20 12/12/20 History cetirizine 10 mg PO DAILY 09/12/20 12/12/20 History clonazepam 1 mg PO BID 09/12/20 12/12/20 History fluticasone propionate [Flonase 2 spray INTRANASAL DAILY 09/12/20 12/12/20 History Allergy Relief] gabapentin 300 mg PO BEDTIME 09/12/20 12/12/20 History primidone 50 mg PO BID 09/12/20 12/12/20 History topiramate 200 mg PO BID 09/12/20 12/12/20 History carbidopa-levodopa 2 tab PO DAILY@0730 12/12/20 12/12/20 History varenicline [Chantix] 1 mg PO BID 12/12/20 12/12/20 History Exam Exam Date and Time: December 12, 2020 1511 Height,Weight and Vital Signs: Height 5 ft 2 in Weight 68.492 kg Narrative Narrative: EKG 09/2020 Normal sinus rhythm Normal ECG When compared with ECG of 06-JUL-2020 00:46, No significant change was found Assessment and Plan Assessment Anesthesia Assessment: Chart Reviewed Documented by User: Jill Palomo 12/16/20 10:42 [facility] Past Medical History Medical History Alcohol abuse Anxiety Arthritis Asthma Back pain Cocaine abuse Depression DVT (deep venous thrombosis) Former cigarette smoker GERD (gastroesophageal reflux disease) Heart murmur Hepatitis History of celiac disease History of cocaine abuse History of frequent headaches History of heroin abuse HIV (human immunodeficiency virus infection) Hydradenitis Lumbago with sciatica, left side On anticoagulant therapy Panic attacks Parkinson disease Peripheral polyneuropathy PTSD (post-traumatic stress disorder) Recovering alcoholic Seizure Spondylosis of cervical spine Spondylosis of lumbar spine Surgical History Surgical History H/O excision of ganglion cyst History of carpal tunnel surgery of left wrist History of hemorrhoidectomy Hx of colonoscopy Hx of esophagogastroduodenoscopy Hx of nasal septoplasty Social History Social History Are you a primary hospice care consultant to a significant other at home: No Alcohol intake: former Year quit: 2003 Smoking Status: Former smoker Years Smoked: Years Smoked in Last 30 Days: No Smoking Quit Date: 04/2020 Second Hand Smoke Exposure: Yes Use of substances other than those prescribed or required for medical reasons: No Substance Use Type: Crack/Cocaine and Heroin Advance Directives: No Advance Directives Information Provided: No Advance Directives on File: No Meds Allergies Allergy/AdvReac Type Severity Reaction Status Date / Time fluoxetine [From PROZAC] Allergy Severe ANNETTE Verified 12/14/20 08:23 cat dander [CATS] Allergy Mild HAYFEVER Verified 12/14/20 08:23 Chocolate Allergy Mild HEADACHES Verified 12/14/20 08:23 dog dander [DOGS] Allergy Mild HAYFEVER Verified 12/14/20 08:23 Environmental Allergy Mild HAYFEVER Uncoded 12/14/20 08:23 Home Medications Medication Instructions Recorded Confirmed Type acetaminophen [Tylenol Ex Str 500 mg PO BID 09/12/20 12/12/20 History Rapid Release] albuterol sulfate [ProAir HFA] 2 puff INHALATION QID PRN 09/12/20 12/12/20 History apixaban [Eliquis] 5 mg PO BID 09/12/20 12/12/20 History carbidopa-levodopa 1 tab PO BEDTIME 09/12/20 12/12/20 History cetirizine 10 mg PO DAILY 09/12/20 12/12/20 History clonazepam 1 mg PO BID 09/12/20 12/12/20 History fluticasone propionate [Flonase 2 spray INTRANASAL DAILY 09/12/20 12/12/20 History Allergy Relief] gabapentin 300 mg PO BEDTIME 09/12/20 12/12/20 History primidone 50 mg PO BID 09/12/20 12/12/20 History topiramate 200 mg PO BID 09/12/20 12/12/20 History carbidopa-levodopa 2 tab PO DAILY@0730 12/12/20 12/12/20 History varenicline [Chantix] 1 mg PO BID 12/12/20 12/12/20 History Exam Airway Mallampati Class: II TM Dist: >3cm Neck ROM: Full Denture: Upper Partial: Lower
[2020-12-16 10:58] VITALS: BP 125/71; PULSE 52; RESP 16; TEMP 36.1; O2SAT 100
[2020-12-16] MEDS: Lactated Ringers 1,000 ML 100 ML IVCONT (11:12)
--- NOTE | 2020-12-16 12:21 | MHC.SHP ---
Pre-Procedural Eval Section A The patient is an INPATIENT: No The History & Physical has been completed within 30 days and I have reviewed it.: No Section B Chief Complaint: spondylosis of lumbar spine Details of Present Illness: as above Relevant Family History (Specify if Yes): No Relevant Social History: Other (specify) (IVDA now in rehab) Present Medications: see Short Stay Collaborative assessment Medical History: No relevant PMH History of Previous Operations: No relevant previous surgery Allergies: Allergies Allergy/AdvReac Type Severity Reaction Status Date / Time fluoxetine [From PROZAC] Allergy Severe ANNETTE Verified 12/14/20 08:23 cat dander [CATS] Allergy Mild HAYFEVER Verified 12/14/20 08:23 Chocolate Allergy Mild HEADACHES Verified 12/14/20 08:23 dog dander [DOGS] Allergy Mild HAYFEVER Verified 12/14/20 08:23 Environmental Allergy Mild HAYFEVER Uncoded 12/14/20 08:23 Review of Systems Sugical H&P ROS: Negative: Constitution, Cardiovascular, Respiratory, Neurological, Psychiatric, Hem-Onc, Gastrointestinal, Genitourinary, Integumentary, Endocrine and Eyes/Ears/Nose/Throat and Yes, Specify: Allergic/Immunologic (HIV/AIDS) and Musculoskeletal (Spondylosis ) Exam Surgical H&P Exam: Normal: HEENT, Normal: Heart, Normal: Lungs, Normal: Extremities, Normal: Abdomen, Normal: Skin and Normal: Neurological Plan Diagnosis/Plan: Unchanged I have reviewed the history and physical and performed a pertinent physical examination on my patient. No changes have occurred unless specified.
--- NOTE | 2020-12-16 12:22 | FL_ITS ---
EXAMINATION: XR FLUOROSCOPY WITH IMAGES CLINICAL INFORMATION: Medial branch block COMPARISON: None. TECHNIQUE: Fluoroscopy performed by Dr. Rafael Joseph. Fluoroscopy time: 0.6 minutes DAP: 3.6 mGycm2 Images: 5 FINDINGS: Images demonstrate needle placement and contrast injection over the facet joints at the L3, L4 and L5 levels bilaterally FL/FL guidance in OR IMPRESSION: Fluoroscopy guidance for medial branch block.
--- NOTE | 2020-12-16 13:18 | PM.OP ---
Brief Operative Note Date of Service: 12/16/20 Pre-op diagnosis: spondylosis lumbar without myelo/radiculopathy Post-op diagnosis: same Procedure: B/l MBBs L3- L4- DRL5 therapeutic Implants: none Surgeon: Rafael Joseph MD Anesthesia: MAC Estimated blood loss (mL): 1 Pathology: none sent Condition: stable Disposition: PACU
[2020-12-16 13:21] VITALS: BP 94/61; PULSE 62; RESP 14; TEMP 36.2; O2SAT 99
[2020-12-16 13:36] VITALS: BP 125/65; PULSE 51; RESP 18; TEMP 36.2; O2SAT 100
--- NOTE | 2020-12-16 16:19 | W.PM.OPN ---
Operative Note Operative Note Date of Service: 12/16/20 Narrative: Informed consent was explained to the patient. All questions were explained and answered. The patient was taken inside the operating room where she was positioned prone on the operating table.. The patient was taken inside of the operating room where was positioned prone operating table. Time-out was performed delineating correct site, side, the nature of the procedure, patient's allergy, preoperative antibiotic if needed. All operating room staff was participating in OR time-out procedure. The lower back was prepped with ChloraPrep and draped with sterile towels. Sterilely draped C-arm was brought over the operating field and square picture of L4-and L5 vertebra and S1 AREA were delineated on the screen. Point of interest were delineated as connection of superior articular process of L4 and L5 vertebra bilaterally with corresponding transverse processes, as well as connection of the sacral alae bilaterally with superior articular process of S1. The projections of the point of interest to the skin were injected with the small amount of local anesthetic lidocaine 2% 1-1.5 cc. After that 22 gauge spinal needles were driven to the point of interest in tunnel vision fashion. After needles gently contacted the bone at the point of interests the needle was injected with small amount of bupivacaine 0.5%-1cc mixad with kenalog. Total dose of kenalog was 80 mg.. Upon completion of the injections needles were removed and sterile dressings were applied patient was awaken and taken outside of the operating room to recovery room where the patient recovered uneventfully. The patient went home without immediate complications.
== END 2020-12-16 14:27 | disposition home or self-care (01) ==
PROVIDERS: PCP General Practice; Visit Provider Anesthesiology
PROC: (CPT 64493; principal; 2020-12-16 11:00)
DX: M47.816 Spondylosis without myelopathy or radiculopathy, lumbar region (principal); M54.42 Lumbago with sciatica, left side; J45.909 Unspecified asthma, uncomplicated; G20 Parkinson's disease; B20 Human immunodeficiency virus [HIV] disease; K21.9 Gastro-esophageal reflux disease without esophagitis; Z79.51 Long term (current) use of inhaled steroids; Z79.899 Other long term (current) drug therapy; Z88.8 Allergy status to other drugs, medicaments and biological substances; F10.20 Alcohol dependence, uncomplicated; Z87.891 Personal history of nicotine dependence; Z86.59 Personal history of other mental and behavioral disorders; Z86.718 Personal history of other venous thrombosis and embolism; Z79.01 Long term (current) use of anticoagulants
CPT/HCPCS: 64493; 64494 ×2; J2250; J3010; J3300; Q9967

== ENCOUNTER 2020-12-16 22:02 | Emergency (ER) | payer MEDICAID, SELFPAY ==
--- NOTE | 2020-12-16 | XR_ITS ---
EXAMINATION: XR ANKLE, LEFT CLINICAL INFORMATION: Ankle pain and swelling. COMPARISON: Left ankle 07/14/2020 TECHNIQUE: 3 views of the left ankle. FINDINGS: There is soft tissue swelling of the lateral malleolus. There is a cortical step off of the lateral malleolus at the distal fibula about 1.5 cm proximal from the tip of the fibula seen on image #2. The tibia is intact. Ankle mortise is congruent. XR/XR ankle LT min 3V IMPRESSION: Small cortical fracture of the distal fibula. Soft tissue swelling of the lateral malleolus
[2020-12-16 22:09] VITALS: BP 148/75; BP 150/90; PULSE 77; PULSE 84; RESP 16; TEMP 37.4; O2SAT 95; BMI 25.6
--- NOTE | 2020-12-16 22:28 | PC.NURSE ---
PT TO ROOM WITH C/O LEFT ANKLE PAIN AFTER FALLING TONIGHT. PT IS REFUSING ICE PACK. LEFT ANKLE UP ON PILLOW. PT ALERT, RESPIRATIONS EASY, N/L. VS OBTAINED. WILL CONTINUE TO MONITOR PT.
[2020-12-16 22:29] VITALS: BP 142/74; PULSE 71; RESP 18; O2SAT 97
--- NOTE | 2020-12-16 22:30 | PC.NURSE ---
X-RAY IN ROOM FOR X-RAY.
--- NOTE | 2020-12-16 23:00 | ED_ITS ---
HPI - Extremity Injury (Lower) General Chief Complaint: Extremity Injury, Lower Stated Complaint: FALL BACK PAIN Time Seen by Provider: 12/16/20 22:29 Source: patient Mode of arrival: EMS History of Present Illness HPI Narrative: This is a 60-year-old female who had lower back procedure earlier today and was instructed to relax at home, but she decided to get up felt a little bit dizzy and states that she stepped ?wrong? and twisted her left ankle. She denies any loss of consciousness as a friend caught her and states that she has pain at the lateral aspect of her left ankle without numbness or tingling. Related Data Home Medications Medication Instructions Recorded Confirmed acetaminophen [Tylenol Ex Str 500 mg PO BID 09/12/20 12/12/20 Rapid Release] albuterol sulfate [ProAir HFA] 2 puff INHALATION QID PRN 09/12/20 12/12/20 apixaban [Eliquis] 5 mg PO BID 09/12/20 12/12/20 carbidopa-levodopa 1 tab PO BEDTIME 09/12/20 12/12/20 cetirizine 10 mg PO DAILY 09/12/20 12/12/20 clonazepam 1 mg PO BID 09/12/20 12/12/20 fluticasone propionate [Flonase 2 spray INTRANASAL DAILY 09/12/20 12/12/20 Allergy Relief] gabapentin 300 mg PO BEDTIME 09/12/20 12/12/20 primidone 50 mg PO BID 09/12/20 12/12/20 topiramate 200 mg PO BID 09/12/20 12/12/20 carbidopa-levodopa 2 tab PO DAILY@0730 12/12/20 12/12/20 varenicline [Chantix] 1 mg PO BID 12/12/20 12/12/20 Previous Rx's Medication Instructions Recorded magnesium oxide 500 mg capsule 500 mg PO DAILY 30 Days #30 cap 10/03/20 Allergies Allergy/AdvReac Type Severity Reaction Status Date / Time fluoxetine [From PROZAC] Allergy Severe ANNETTE Verified 12/16/20 22:08 cat dander [CATS] Allergy Mild HAYFEVER Verified 12/16/20 22:08 Chocolate Allergy Mild HEADACHES Verified 12/16/20 22:08 dog dander [DOGS] Allergy Mild HAYFEVER Verified 12/16/20 22:08 Environmental Allergy Mild HAYFEVER Uncoded 12/14/20 08:23 Review of Systems Review of Systems: Pertinent positives and negatives as stated in HPI and 10 point review of systems is otherwise negative. [facility] Past Medical History Source: nursing notes reviewed Medical History Alcohol abuse Anxiety Arthritis Asthma Back pain Cocaine abuse Depression DVT (deep venous thrombosis) Former cigarette smoker GERD (gastroesophageal reflux disease) Heart murmur Hepatitis History of celiac disease History of cocaine abuse History of frequent headaches History of heroin abuse HIV (human immunodeficiency virus infection) Hydradenitis Lumbago with sciatica, left side On anticoagulant therapy Panic attacks Parkinson disease Peripheral polyneuropathy PTSD (post-traumatic stress disorder) Recovering alcoholic Seizure Spondylosis of cervical spine Spondylosis of lumbar spine Surgical History H/O excision of ganglion cyst History of carpal tunnel surgery of left wrist History of hemorrhoidectomy Hx of colonoscopy Hx of esophagogastroduodenoscopy Hx of nasal septoplasty Social History Social History Alcohol intake: former Year quit: 2003 Smoking Status: Former smoker Years Smoked: Years Second Hand Smoke Exposure: Yes Substance Use Type: Crack/Cocaine and Heroin Advance Directives: No Advance Directives Information Provided: Yes Physical Exam Vital Signs: Vital Signs: Last Vital Signs Temp 99.4 F 12/16/20 22:09 Pulse 71 12/16/20 22:29 Resp 18 12/16/20 22:29 BP 142/74 H 12/16/20 22:29 Pulse Ox 97 12/16/20 22:29 Body Mass Index 25.6 VITAL SIGNS: Reviewed. GENERAL: Well developed, well nourished, in no acute distress. NOSE: Nares patent bilateral OROPHARYNX: no oral lesions noted, posterior pharynx clear NECK: Supple, no adenopathy LUNGS: Normal breath sounds. No adventitious sounds or accessory muscle use. SpO2<97> CARDIOVASCULAR: Regular rate and rhythm without noted murmurs, no JVD or lower extremity edema. ABDOMEN: Soft, non-tender, non-distended with bowel sounds. LLE: Left lateral malleolus swelling with neurovascular intact and capillary refill less than 3 seconds NEUROLOGIC: Alert and oriented x 4. Strength and sensation to light touch were grossly intact x 4. Course Course Course Narrative: This is a 60-year-old female with history and clinical presentation consistent with mechanical gait instability that led to twisting of the ankle and x-ray findings are consistent with left fibular fracture minimally displaced without neurovascular compromise. Patient will be placed in a walking boot and provided with orthopedic referral. All results and findings were discussed with her bedside. And she was discharged in stable condition. Discharge Plan Discharge Clinical Impression: Left fibular fracture Qualifiers: Encounter type: initial encounter Fibula location: distal Fracture type: closed Fracture morphology: unspecified fracture morphology Qualified Code(s): S82.832A - Other fracture of upper and lower end of left fibula, initial encounter for closed fracture Patient Disposition: Home, Self-Care Instructions: Ankle Fracture (ED) Additional Instructions: 1. Resume all home medications as prescribed. 2. Please leave the walking boot in place until you are evaluated by orthopedics. 3. Keep extremity elevated as much as possible. 4. Apply ice 15-20 minutes, 3 to 4 times a day, to unexposed skin. Return to the emergency department should you experience any worsening symptoms. Prescriptions: No Action carbidopa-levodopa 25-100 mg Tablet 2 tab PO DAILY@0730 RF: 0 Chantix 1 mg Tablet 1 mg PO BID RF: 0 primidone 50 mg Tablet 50 mg PO BID RF: 0 carbidopa-levodopa 25-100 mg Tablet Extended Release 1 tab PO BEDTIME RF: 0 cetirizine 10 mg Tablet 10 mg PO DAILY RF: 0 clonazepam 1 mg Tablet 1 mg PO BID RF: 0 acetaminophen [Tylenol Ex Str Rapid Release] 500 mg Tablet 500 mg PO BID RF: 0 topiramate 200 mg Tablet 200 mg PO BID RF: 0 albuterol sulfate [ProAir HFA] 90 mcg/actuation Hfa Aerosol Inhaler 2 puff INHALATION QID PRN (Reason: Wheezing) RF: 0 fluticasone propionate [Flonase Allergy Relief] 50 mcg/actuation [place],Suspension 2 spray INTRANASAL DAILY RF: 0 gabapentin 300 mg Tablet 300 mg PO BEDTIME RF: 0 Eliquis 5 mg Tablet 5 mg PO BID RF: 0 magnesium oxide 500 mg capsule 500 mg PO DAILY 30 Days Qty: 30 RF: 12 Referrals: Cinthya Pickett MD [Physician] - 2 days (Evaluation of 60-year-old female with left, close, minimally displaced distal fibular fracture, placed in a walking boot, neurovascular intact. Thank you)
== END 2020-12-16 23:34 | disposition home or self-care (01) ==
PROVIDERS: Emergency Provider Student in an Organized Health Care Education/Training Program; PCP General Practice
DX: S82.832A Other fracture of upper and lower end of left fibula, initial encounter for closed fracture (principal); R26.81 Unsteadiness on feet; F14.90 Cocaine use, unspecified, uncomplicated; M79.605 Pain in left leg; M54.5 Low back pain; F11.90 Opioid use, unspecified, uncomplicated; W01.0XXA Fall on same level from slipping, tripping and stumbling without subsequent striking against object, initial encounter; Y93.9 Activity, unspecified; Y92.9 Unspecified place or not applicable; Y99.9 Unspecified external cause status; Z87.891 Personal history of nicotine dependence; Z79.899 Other long term (current) drug therapy
CPT/HCPCS: 73610; 99283

== ENCOUNTER → 2020-12-19 14:01 | Outpatient (BNVA) | payer MEDICAID, SELFPAY | PROVIDERS: PCP General Practice; Visit Provider Physician Assistant | DX: S82.63XA Displaced fracture of lateral malleolus of unspecified fibula, initial encounter for closed fracture (principal) | CPT/HCPCS: 27786; 29405; 99202 ==

== ENCOUNTER 2020-12-23 13:30 | Outpatient (REF) | payer MEDICAID, SELFPAY ==
--- NOTE | ~2020-12-23 | XR_ITS ---
EXAMINATION: XR ANKLE, LEFT CLINICAL INFORMATION: Fracture COMPARISON: Previous x-ray 12/16/2020 TECHNIQUE: AP, lateral, and mortise views of the left ankle. FINDINGS: There is a comminuted oblique fracture of the distal fibular shaft. There is a newly appreciated posterior oblique oblique nondisplaced fracture of the more superior distal fibular shaft just above the ankle joint. Cortical step off of the more inferior lateral malleolus is unchanged. No other fracture is seen. The ankle mortise is normal. There is overlying soft tissue swelling. XR/XR ankle LT min 3V IMPRESSION: Nondisplaced fracture of the distal fibula.
== END 2020-12-23 13:31 | disposition home or self-care (01) ==
LOC: HO.XRAY 13:30
PROVIDERS: PCP General Practice; Visit Provider Physician Assistant
DX: S82.62XD Displaced fracture of lateral malleolus of left fibula, subsequent encounter for closed fracture with routine healing (principal)
CPT/HCPCS: 29405; 73610; 99212

== ENCOUNTER 2021-01-13 10:22 | Outpatient (REF) | payer MEDICAID, SELFPAY ==
--- NOTE | ~2021-01-13 | XR_ITS ---
EXAMINATION: XR ANKLE, LEFT CLINICAL INFORMATION: Lateral malleolar fracture. COMPARISON: 12/23/2020 TECHNIQUE: AP, lateral, and mortise views of the left ankle. FINDINGS: Orthopedic cast obscures fine bony detail. Distal fibular fracture is unchanged in position and alignment. Ankle mortise is stable in positioning. No acute fractures identified. XR/XR ankle LT min 3V IMPRESSION: Stable positioning of the lateral malleolar fracture, status post cast.
== END 2021-01-13 10:23 | disposition home or self-care (01) ==
LOC: HO.XRAY 10:22
PROVIDERS: PCP General Practice; Visit Provider Physician Assistant
DX: S82.63XA Displaced fracture of lateral malleolus of unspecified fibula, initial encounter for closed fracture (principal)
CPT/HCPCS: 73610; 99212

== ENCOUNTER 2021-01-20 07:24 | Outpatient (REF) | payer MEDICAID, SELFPAY | END 2021-01-20 07:25 | disposition home or self-care (01) | LOC: HO.HOSX 07:24 | PROVIDERS: Visit Provider Physician Assistant | DX: Z13.89 Encounter for screening for other disorder (principal) ==

== ENCOUNTER → 2021-01-23 11:13 | Outpatient (BNVA) | payer MEDICAID, SELFPAY | PROVIDERS: PCP General Practice; Visit Provider Anesthesiology | DX: F14.10 Cocaine abuse, uncomplicated (principal); M47.816 Spondylosis without myelopathy or radiculopathy, lumbar region; M47.812 Spondylosis without myelopathy or radiculopathy, cervical region; G62.9 Polyneuropathy, unspecified; Z79.899 Other long term (current) drug therapy | CPT/HCPCS: 99212 ==

== ENCOUNTER 2021-01-27 07:32 | Outpatient (REF) | payer MEDICAID, SELFPAY | END 2021-01-27 07:33 | disposition home or self-care (01) | LOC: HO.HOSX 07:32 | PROVIDERS: Visit Provider Physician Assistant | DX: Z13.89 Encounter for screening for other disorder (principal) ==

== ENCOUNTER 2021-01-30 07:32 | Outpatient (REF) | payer MEDICAID, SELFPAY ==
--- NOTE | ~2021-01-30 | XR_ITS ---
EXAMINATION: XR ANKLE, LEFT CLINICAL INFORMATION: Follow-up fracture COMPARISON: Previous x-rays most recent December 2020 TECHNIQUE: AP, lateral, and mortise views of the left ankle. FINDINGS: There is an oblique nondisplaced fracture of the distal fibula. Fracture line is still seen. There is increasing bony callus formation suggestive of evidence of healing. No other fracture is seen. The ankle mortise is normal. Soft tissues are normal. XR/XR ankle LT min 3V IMPRESSION: Healing nondisplaced fracture of the left distal fibula.
== END 2021-01-30 07:33 | disposition home or self-care (01) ==
LOC: HO.HOSX 07:32
PROVIDERS: Visit Provider Physician Assistant
DX: S82.832D Other fracture of upper and lower end of left fibula, subsequent encounter for closed fracture with routine healing (principal)
CPT/HCPCS: 73610; 99212

== ENCOUNTER 2021-03-19 16:57 | Emergency (ER) | payer MEDICAID, SELFPAY ==
[2021-03-19 17:04] VITALS: BP 157/91; PULSE 78; RESP 16; TEMP 36.6; O2SAT 99; BMI 27.4
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
[2021-03-19] MEDS: Diphth,Pertus(ACell),Tet Adult 0.5 ML SYRINGE IM (18:44)
[2021-03-19] MEDS: Tetracaine HCl/PF 0.5% Oph Sol 4 ML DROPS 3 DROP EYE-LEFT (18:45)
[2021-03-19] MEDS: Erythromycin Base 0.5% Oph Oin 1 GM TUBE 1 CM EYE-LEFT (18:45)
[2021-03-19] MEDS: Fluorescein Sodium STRIP 1 STRIP EYE-LEFT (18:45)
== END 2021-03-19 18:54 | disposition home or self-care (01) ==
PROVIDERS: Emergency Provider Emergency Medicine; PCP General Practice
DX: S05.02XA Injury of conjunctiva and corneal abrasion without foreign body, left eye, initial encounter (principal); X58.XXXA Exposure to other specified factors, initial encounter; Y93.9 Activity, unspecified; Y92.480 Sidewalk as the place of occurrence of the external cause; Y99.9 Unspecified external cause status; B20 Human immunodeficiency virus [HIV] disease; G20 Parkinson's disease; F10.10 Alcohol abuse, uncomplicated; F14.10 Cocaine abuse, uncomplicated; F17.210 Nicotine dependence, cigarettes, uncomplicated; Z86.718 Personal history of other venous thrombosis and embolism; Z79.01 Long term (current) use of anticoagulants
CPT/HCPCS: 90471; 90715; 99284

== ENCOUNTER 2021-03-22 14:00 | Outpatient (RCR) | payer MEDICAID, SELFPAY ==
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
--- NOTE | 2021-03-22 14:56 | MHC.PT.DC ---
[facility] [place] Office [place] Office [place] Office [address] Elkin Eric [address] [phone] F: [phone] F: [phone] F: [phone] F: [phone] Physical Therapy Discharge Report Diagnosis: Fracture of LEFT distal end of fibula with routine healing S82.839D Date of Surgery: Date of Evaluation: 02/06/21 Date of Discharge: 03/22/21 Treatments to Date: 7 Cancellations to Date: 0 No Shows to Date: 0 Discharge Status: Achieved Goals Improved Function Independent with HEP Discharge Summary: Pt HAS MET HER PT GOALS AT THIS TIME WITH PT INTERVENTION S/P Lt LAT MALL FX- SHE IS MOTIVATED AND COMPLIANT W HER HEP, WFL GAIT MECHANICS ON LEVEL GROUND AND STAIRS, OVERALL INCR FUNCTIONAL MOB JOSH - HER Lt ANKLE ROM IS WFL, STRENGTH IN HER Lt LE HAS ALSO IMPROVED. Electronically signed by: Kylah Chavez,PT Please sign and return to therapist. Thank you for your referral.
== END 2021-03-22 14:59 | disposition other institution (70) ==
LOC: HO.PTCHIC 14:00
PROVIDERS: PCP General Practice; Visit Provider Physician Assistant
DX: S82.839D Other fracture of upper and lower end of unspecified fibula, subsequent encounter for closed fracture with routine healing (principal)
CPT/HCPCS: 97110; 97112; 97161

== ENCOUNTER 2021-03-31 15:03 | Outpatient (REF) | payer MEDICAID, SELFPAY ==
--- NOTE | ~2021-03-31 | US_ITS ---
EXAMINATION: US VENOUS ULTRASOUND WITH DOPPLER LOWER EXTREMITY, LEFT CLINICAL INFORMATION: Swelling and pain. COMPARISON: Previous exam June 2020 TECHNIQUE: Ultrasound of the deep veins is performed from the hip to the calf with compression sonography and color and pulse Doppler assessment. Spectral analysis with color-flow imaging is performed. FINDINGS: There is partial compression of the left common femoral and proximal and mid superficial femoral vein. The superficial femoral vein appears small in caliber with slightly thickened echogenic wall. Findings are similar to previous exam suggestive of changes from old DVT. No evidence of acute DVT is seen. The left common femoral, superficial femoral, popliteal and visualized peroneal and posterior tibial veins in the calf are patent. The greater saphenous vein in the proximal thigh is patent. There is a small amount of fluid seen adjacent to the lateral ankle joint and area of pain. No Gibbs's cyst is seen. US/US venous duplex LE LT IMPRESSION: No evidence of acute DVT demonstrated in the left lower extremity. Changes of old DVT seen in the left common femoral and proximal and mid superficial femoral veins similar to previous exam.
== END 2021-03-31 15:04 | disposition home or self-care (01) ==
LOC: HO.US 15:03
PROVIDERS: PCP General Practice; Visit Provider General Practice
DX: M79.605 Pain in left leg (principal); M79.89 Other specified soft tissue disorders
CPT/HCPCS: 93971

== ENCOUNTER → 2021-04-06 08:06 | Outpatient (BNVA) | payer MEDICAID, SELFPAY | PROVIDERS: PCP General Practice; Visit Provider Anesthesiology ==

== ENCOUNTER 2021-04-21 12:14 | Day surgery (SDC) | payer MEDICAID, SELFPAY ==
--- NOTE | ~2021-04-21 | FL_ITS ---
EXAMINATION: XR FLUOROSCOPY WITH IMAGES CLINICAL INFORMATION: Medial branch block. COMPARISON: None. TECHNIQUE: Fluoroscopy performed by Dr. Opal Hall. Fluoroscopy time: 0.7 minutes DAP: 4.74 mGycm2 Images: 6 FINDINGS: There are bilateral needles and contrast visualized adjacent to the pedicles at L3 L4 L5 vertebra for medial branch block. No gross bony and the body seen. FL/FL guidance in OR IMPRESSION: Fluoroscopy was provided to Dr. Opal Hall for medial branch blocks.
[2021-04-21 13:00] VITALS: BMI 31.1
[2021-04-21 13:20] VITALS: BP 131/67; PULSE 56; RESP 20; TEMP 37.1; O2SAT 98; BMI 31.1
--- NOTE | 2021-04-21 13:54 | P.CONAN_ITS ---
FORM[facility]LY [facility] Active Problems Active Problems: All Active Problems (Updated 03/20/21 @ 00:00 by Jeovanny Noel) Fracture of distal end of fibula with routine healing (Acute) Lateral malleolar fracture (Acute) Peripheral polyneuropathy (Acute) Spondylosis of cervical spine (Acute) Spondylosis of lumbar spine (Acute) Cocaine abuse (Acute) Past Medical History Medical History Alcohol abuse Anxiety Arthritis Asthma Back pain Cocaine abuse Depression DVT (deep venous thrombosis) Former cigarette smoker GERD (gastroesophageal reflux disease) Heart murmur Hepatitis History of celiac disease History of cocaine abuse History of frequent headaches History of heroin abuse HIV (human immunodeficiency virus infection) Hydradenitis Lumbago with sciatica, left side On anticoagulant therapy Panic attacks Parkinson disease Peripheral polyneuropathy PTSD (post-traumatic stress disorder) Recovering alcoholic Seizure Spondylosis of cervical spine Spondylosis of lumbar spine Family History Family history of problems with anesthesia: No Surgical History Surgical History H/O excision of ganglion cyst History of carpal tunnel surgery of left wrist History of hemorrhoidectomy Hx of colonoscopy Hx of esophagogastroduodenoscopy Hx of nasal septoplasty History of Problems with Anesthesia: No Social History Social History Are you a primary critical care transport nurse to a significant other at home: No Do you presently have visiting nurse or other home services: Yes Alcohol intake: former Year quit: 2003 Tobacco use type: Cigarette Cigarette Packs Per Day: 1 Cigarettes Per Day: 20.0 Years Smoked: 45 Smoked in Last 30 Days: No Second Hand Smoke Exposure: No Use of substances other than those prescribed or required for medical reasons: No Substance Use Type: Crack/Cocaine and Heroin Are you DNR?: No Advance Directives: No Advance Directives Information Provided: Yes Meds Allergies Allergy/AdvReac Type Severity Reaction Status Date / Time fluoxetine [From PROZAC] Allergy Severe ANNETTE Verified 04/14/21 14:20 cat dander [CATS] Allergy Mild HAYFEVER Verified 04/14/21 14:20 Chocolate Allergy Mild HEADACHES Verified 04/14/21 14:20 dog dander [DOGS] Allergy Mild HAYFEVER Verified 04/14/21 14:20 Environmental Allergy Mild HAYFEVER Uncoded 04/14/21 14:20 Home Medications Medication Instructions Recorded Confirmed Last Taken Type acetaminophen [Tylenol Ex Str 500 mg PO BID 09/12/20 04/21/21 04/21/21 12:00 History Rapid Release] albuterol sulfate [ProAir HFA] 2 puff INHALATION QID PRN 09/12/20 04/14/21 1 Day Ago History ~10/09/20 apixaban [Eliquis] 5 mg PO BID 09/12/20 04/21/21 04/18/21 09:00 History cetirizine 10 mg PO DAILY 09/12/20 04/14/21 12/16/20 History clonazepam 1 mg PO BID 09/12/20 04/14/21 12/16/20 History fluticasone propionate [Flonase 2 spray INTRANASAL DAILY 09/12/20 04/14/21 1 Day Ago History Allergy Relief] ~10/09/20 gabapentin 300 mg PO BEDTIME 09/12/20 04/14/21 1 Day Ago History ~10/09/20 primidone 50 mg PO BID 09/12/20 04/14/21 12/16/20 History topiramate 200 mg PO BID 09/12/20 04/21/21 04/21/21 12:00 History carbidopa-levodopa 2 tab PO DAILY@0730 12/12/20 04/21/21 04/21/21 12:00 History varenicline [Chantix] 1 mg PO BID 12/12/20 04/14/21 12/16/20 History sennosides [senna] 1 tab PO BEDTIME 04/14/21 04/14/21 Unknown History Exam Exam Date and Time: April 21, 2021 1354 Height,Weight and Vital Signs: Height 5 ft 2 in Weight 77.111 kg Last Vital Signs Temp 98.7 F 04/21/21 13:20 Pulse 56 04/21/21 13:20 Resp 20 04/21/21 13:20 BP 131/67 04/21/21 13:20 Pulse Ox 98 04/21/21 13:20 Airway Mallampati Class: II TM Dist: >3cm Neck ROM: Full Denture: Upper Partial: Lower
--- NOTE | 2021-04-21 13:55 | MHC.SHP ---
Pre-Procedural Eval Section B Chief Complaint: Spondylosis of Lumbar Spine Details of Present Illness: As above Relevant Family History (Specify if Yes): No Relevant Social History: None Present Medications: None Medical History: No relevant PMH History of Previous Operations: No relevant previous surgery Allergies: Allergies Allergy/AdvReac Type Severity Reaction Status Date / Time fluoxetine [From PROZAC] Allergy Severe ANNETTE Verified 04/14/21 14:20 cat dander [CATS] Allergy Mild HAYFEVER Verified 04/14/21 14:20 Chocolate Allergy Mild HEADACHES Verified 04/14/21 14:20 dog dander [DOGS] Allergy Mild HAYFEVER Verified 04/14/21 14:20 Environmental Allergy Mild HAYFEVER Uncoded 04/14/21 14:20 Review of Systems Sugical H&P ROS: Negative: Constitution, Cardiovascular, Respiratory, Neurological, Psychiatric, Hem-Onc, Allergic/Immunologic, Gastrointestinal, Genitourinary, Musculoskeletal, Integumentary, Endocrine and Eyes/Ears/Nose/Throat Exam Surgical H&P Exam: Normal: HEENT, Normal: Heart, Normal: Lungs, Normal: Extremities, Normal: Abdomen, Normal: Skin and Normal: Neurological Plan Diagnosis/Plan: Unchanged I have reviewed the history and physical and performed a pertinent physical examination on my patient. No changes have occurred unless specified.
[2021-04-21] MEDS: Lactated Ringers 1,000 ML 100 ML IVCONT (13:59)
[2021-04-21] MEDS: Albuterol/Iprat 2.5/0.5MG 3 ML AMPUL.NEB INHALE (14:16)
[2021-04-21 14:19] VITALS: PULSE 87; O2SAT 93
--- NOTE | 2021-04-21 15:05 | PM.OP ---
Brief Operative Note Date of Service: 04/21/21 Pre-op diagnosis: Spondylosis lumbar spine Post-op diagnosis: same Procedure: Therapeutic medial branch block L3-L4 does ramus L5 bilateral Implants: In a Surgeon: Rafael Joseph MD Anesthesia: MAC Was an Bleacher [place] Pulp used for this Procedure?: No Estimated blood loss (mL): 0 Condition: stable Disposition: PACU
--- NOTE | 2021-04-21 15:06 | P.OP_ITS ---
Operative Note Operative Note Date of Service: 04/21/21 Narrative: Informed consent was explained to the patient. All questions were explained and answered. The patient was taken inside the operating room where she was positioned prone on the operating table. [place] [employer] monitors were applied. Patient was deeply sedated. Time-out was performed delineating correct site, side, the nature of the procedure, patient's allergy, preoperative antibiotic if needed. All operating room staff was participating in OR time-out procedure. The lower back was prepped with ChloraPrep and draped with sterile towels. Sterilely draped C-arm was brought over the operating field and sq picture of L4-and L5 vertebra and S1 AREA were delineated on the screen. Point of interest were delineated as connection of superior articular process of L4 and L5 vertebra bilaterally with corresponding transverse processes as well as connection of the sacral alae bilaterally with superior articular process of S1. The projection of the point of interest to the skin were injected with the small amount of local anesthetic lidocaine 2% 1-1.5 cc. After that 22 gauge 3- 1/2 inch spinal needle was driven sequentially to the points of interest in tunnel vision fashion. After needles gently contacted the bone at the point of interests the needle was injected with small amount of the contrast. The injection of the contrast did not demonstrate any intravascular or intrathecal spread of the contrast. After that injection of the bupivacaine 0.5%-1cc mixed with Kenalog was performed at each needle location. Upon completion of the injections needle was removed and sterile Band-Aids were applied. The patient was awaken and taken outside of the operating room to recovery room where she recovered uneventfully. She went home without immediate complications.
[2021-04-21 15:08] VITALS: BP 105/52; PULSE 59; RESP 10; TEMP 36.6; O2SAT 99
[2021-04-21 15:23] VITALS: BP 124/42; PULSE 62; RESP 16; O2SAT 100
== END 2021-04-21 16:14 | disposition home or self-care (01) ==
PROVIDERS: PCP General Practice; Visit Provider Anesthesiology
PROC: (CPT 64493; principal; 2021-04-21 14:10)
DX: M47.816 Spondylosis without myelopathy or radiculopathy, lumbar region (principal); J45.909 Unspecified asthma, uncomplicated; G20 Parkinson's disease; I82.4Y2 Acute embolism and thrombosis of unspecified deep veins of left proximal lower extremity; F14.10 Cocaine abuse, uncomplicated; F10.10 Alcohol abuse, uncomplicated; Z87.891 Personal history of nicotine dependence; Z21 Asymptomatic human immunodeficiency virus [HIV] infection status; Z79.51 Long term (current) use of inhaled steroids; Z79.899 Other long term (current) drug therapy; Z79.01 Long term (current) use of anticoagulants
CPT/HCPCS: 64493; 64494; J2250; J3010; J3300; Q9967

== ENCOUNTER 2021-05-05 21:27 | Emergency (ER) | payer MEDICAID, SELFPAY ==
[2021-05-05 21:39] VITALS: BP 141/71; PULSE 102; RESP 18; TEMP 36.9; O2SAT 99; BMI 34.7
--- NOTE | 2021-05-06 00:08 | ED.GENADULT ---
HPI - General Adult General Chief complaint: Skin/Abscess/Foreign Body Stated complaint: sunburn Time Seen by Provider: 05/05/21 22:55 Source: patient Mode of arrival: ambulatory Limitations: no limitations History of Present Illness HPI narrative: 60-year-old female here today complaining of sunburn to bilateral lower extremities and blisters to popliteal area. Patient was on a vacation at [facility] for last week. Patient reports bilateral lower extremities painful. Patient reports that she was putting baby oil all over her body except her lower extremities. Patient does not have sunburn anywhere else except her extremities posteriorly. Any treated patient denies any fever or chills. Denies any nausea or vomiting. Able to drink fluids and keep fluids down. Denies any other symptoms Related Data Home Medications Medication Instructions Recorded Confirmed acetaminophen [Tylenol Ex Str 500 mg PO BID 09/12/20 04/21/21 Rapid Release] albuterol sulfate [ProAir HFA] 2 puff INHALATION QID PRN 09/12/20 04/14/21 apixaban [Eliquis] 5 mg PO BID 09/12/20 04/21/21 cetirizine 10 mg PO DAILY 09/12/20 04/14/21 clonazepam 1 mg PO BID 09/12/20 04/14/21 fluticasone propionate [Flonase 2 spray INTRANASAL DAILY 09/12/20 04/14/21 Allergy Relief] gabapentin 300 mg PO BEDTIME 09/12/20 04/14/21 primidone 50 mg PO BID 09/12/20 04/14/21 topiramate 200 mg PO BID 09/12/20 04/21/21 carbidopa-levodopa 2 tab PO DAILY@0730 12/12/20 04/21/21 varenicline [Chantix] 1 mg PO BID 12/12/20 04/14/21 sennosides [senna] 1 tab PO BEDTIME 04/14/21 04/14/21 Previous Rx's Medication Instructions Recorded erythromycin 1 appl OPHTHALMIC-LEFT Q4H 5 Days 03/19/21 #1 g lidocaine HCl 4 % topical cream 1 appl TOPICAL TID 30 Days #120 g 04/19/21 bacitracin zinc 1 appl TOPICAL BID #14.2 g 05/06/21 Allergies Allergy/AdvReac Type Severity Reaction Status Date / Time fluoxetine [From PROZAC] Allergy Severe ANNETTE Verified 04/14/21 14:20 cat dander [CATS] Allergy Mild HAYFEVER Verified 04/14/21 14:20 Chocolate Allergy Mild HEADACHES Verified 04/14/21 14:20 dog dander [DOGS] Allergy Mild HAYFEVER Verified 04/14/21 14:20 Environmental Allergy Mild HAYFEVER Uncoded 04/14/21 14:20 Review of Systems Review of Systems: Constitutional : No Weight loss, No Fever, No Chills, No Night Sweats, No Fatigue, No Malaise ENT/Mouth : No Hearing loss, No Ear Pain, No Nasal Congestion, No Sinus Pain, No Hoarseness, No sore throat, No Rhinorrhea, No Swallowing Difficulty Eyes: No Eye Pain, No Swelling, No Redness, No Foreign Body, No Discharge, No Vision Changes Cardiovascular : No Chest Pain, No SOB, No Dyspnea on Exertion, No Orthopnea, No Edema, No Palpitations Respiratory : No Cough, No Sputum, No Wheezing, No Smoke Exposure, No Dyspnea Gastrointestinal : No Nausea, No Vomiting, No Diarrhea, No Constipation, No abdominal Pain, No Hematochezia, No Melena Genitourinary : no irregular bleeding, No Dysuria, No Urinary Frequency, No Hematuria, No Urinary Incontinence, No Urgency, No Flank Pain, No Urinary Flow Changes, No Hesitancy Musculoskeletal : No joint pain, No Myalgias, No Joint Swelling Skin : No Skin Lesions, No rash, sunburn to bilateral lower extremity Neuro : No Weakness, No Numbness, No Paresthesias, No Loss of Consciousness, No Dizziness, No Headache Psych : No Anxiety/Panic, No Depression, No SI/HI/AH/VH, No Social Issues, Heme/Lymph: No Bruising, No Bleeding,No Lymphadenopathy Endocrine : No Polyuria, No Polydipsia, No Temperature Intolerance Yes all other systems are reviewed and are negative [facility] Past Medical History Medical History Alcohol abuse Anxiety Arthritis Asthma Back pain Cocaine abuse Depression DVT (deep venous thrombosis) Former cigarette smoker GERD (gastroesophageal reflux disease) Heart murmur Hepatitis History of celiac disease History of cocaine abuse History of frequent headaches History of heroin abuse HIV (human immunodeficiency virus infection) Hydradenitis Lumbago with sciatica, left side On anticoagulant therapy Panic attacks Parkinson disease Peripheral polyneuropathy PTSD (post-traumatic stress disorder) Recovering alcoholic Seizure Spondylosis of cervical spine Spondylosis of lumbar spine Surgical History H/O excision of ganglion cyst History of carpal tunnel surgery of left wrist History of hemorrhoidectomy Hx of colonoscopy Hx of esophagogastroduodenoscopy Hx of nasal septoplasty Social History Social History Are you a primary animal care supervisor to a significant other at home: No Do you presently have visiting nurse or other home services: Yes Alcohol intake: former Year quit: 2003 Tobacco use type: Cigarette Cigarette Packs Per Day: 1 Cigarettes Per Day: 20.0 Years Smoked: 45 Second Hand Smoke Exposure: No Substance Use Type: Crack/Cocaine and Heroin Advance Directives: No Advance Directives Information Provided: No Patient : No Physical Exam Vital Signs: Vital Signs: Last Vital Signs Temp 98.5 F 05/05/21 21:39 Pulse 102 H 05/05/21 21:39 Resp 18 05/05/21 21:39 BP 141/71 H 05/05/21 21:39 Pulse Ox 99 05/05/21 21:39 Body Mass Index 34.7 Const: General: healthy appearing, no acute distress and well developed Nutritional Appearance: well nourished Orientation/consciousness: patient oriented x3 Neck: Neck: Yes normal visual inspection, Yes full ROM and Yes trachea midline Thyroid: Thyroid normal Resp: Auscultation: clear to auscultation bilaterally Cardio: Rate: regular rate Rhythm: regular rhythm GI: Inspection: Yes normal to inspection and No distended Palpation (GI): No hepatosplenomegaly present Auscultation: normal bowel sounds Skin: General skin exam: elasticity normal, turgor normal, dry skin and other (Sunburn to posterior bilateral lower extremities, with blisters to right ) Neuro: General: patient oriented x3 Course Course Course Narrative: 60 years old female here today with sunburn to bilateral lower extremity with blisters to right popliteal area. One of the blisters trained with sterile needle and syringe serous drainage. Area cleaned with Betadine and sterile saline prior to drainage. Bacitracin applied to all blisters area covered with Telfa and ABD pad. Patient danae be sent home with script for bacitracin. Patient denies any fever or chills. Patient was instructed to keep the area clean and apply bacitracin. Patient verbalizes understanding of instructions and is agreeable to plan of care. Discharge Plan Discharge Clinical Impression: Sunburn Patient Disposition: Home, Self-Care Instructions: Sunburn (ED) Additional Instructions: You were seen here today for sunburn. One of your blisters were drain, bacitracin ointment was applied to all the blisters. Area was covered with nonstick dressing. Make sure to keep this area clean. Apply bacitracin to all the blisters. Make sure you stay hydrated. You may return to emergency department if you will experience worsening symptoms or he will experience any other concerning symptoms. Prescriptions: New bacitracin zinc 500 unit/gram ointment 1 appl topical BID Qty: 14.2 RF: 0 No Action lidocaine HCl [Aspercreme (lidocaine HCl)] 4 % cream 1 appl topical TID 30 Days Qty: 120 RF: 12 carbidopa-levodopa 25-100 mg Tablet 2 tab PO DAILY@0730 RF: 0 Chantix 1 mg Tablet 1 mg PO BID RF: 0 sennosides [senna] 8.6 mg tablet 1 tab PO BEDTIME RF: 0 erythromycin 5 mg/gram (0.5 %) ointment 1 appl ophthalmic-Left Q4H 5 Days Qty: 1 RF: 0 primidone 50 mg Tablet 50 mg PO BID RF: 0 cetirizine 10 mg Tablet 10 mg PO DAILY RF: 0 clonazepam 1 mg Tablet 1 mg PO BID RF: 0 acetaminophen [Tylenol Ex Str Rapid Release] 500 mg Tablet 500 mg PO BID RF: 0 topiramate 200 mg Tablet 200 mg PO BID RF: 0 albuterol sulfate [ProAir HFA] 90 mcg/actuation Hfa Aerosol Inhaler 2 puff INHALATION QID PRN (Reason: Wheezing) RF: 0 fluticasone propionate [Flonase Allergy Relief] 50 mcg/actuation [place],Suspension 2 spray INTRANASAL DAILY RF: 0 gabapentin 300 mg Tablet 300 mg PO BEDTIME RF: 0 Eliquis 5 mg Tablet 5 mg PO BID RF: 0 Interventions: ED Discharge Assessment Last Done: 05/06/21 02:13
[2021-05-06] MEDS: Acetaminophen 325 MG TABLET 650 MG PO (01:10)
== END 2021-05-06 02:19 | disposition home or self-care (01) ==
PROVIDERS: Emergency Provider Student in an Organized Health Care Education/Training Program
DX: L55.9 Sunburn, unspecified (principal)
CPT/HCPCS: 10160; 99284

== ENCOUNTER 2021-05-06 18:10 | Emergency (ER) | payer MEDICAID, SELFPAY ==
[2021-05-06 18:44] VITALS: BP 174/89; PULSE 85; RESP 16; TEMP 37.1; O2SAT 97; BMI 32.9
== END 2021-05-06 20:58 | disposition left against medical advice (07) ==
PROVIDERS: Emergency Provider Emergency Medicine
DX: L55.9 Sunburn, unspecified (principal)
CPT/HCPCS: 99281; 99282

== ENCOUNTER → 2021-05-11 13:36 | Outpatient (BNVA) | payer MEDICAID, SELFPAY | PROVIDERS: PCP General Practice; Referring Provider General Practice; Visit Provider Internal Medicine Cardiovascular Disease | DX: R06.00 Dyspnea, unspecified (principal); R07.89 Other chest pain | CPT/HCPCS: 93005; 99202 ==

== ENCOUNTER 2021-05-15 08:04 | Outpatient (RCR) | payer MEDICAID, SELFPAY | END 2021-05-26 09:56 | disposition home or self-care (01) | LOC: HO.WCC 08:04 | PROVIDERS: PCP General Practice; Visit Provider Physician Assistant | DX: L55.1 Sunburn of second degree (principal); L97.121 Non-pressure chronic ulcer of left thigh limited to breakdown of skin; L97.111 Non-pressure chronic ulcer of right thigh limited to breakdown of skin; L97.821 Non-pressure chronic ulcer of other part of left lower leg limited to breakdown of skin; Z72.0 Tobacco use | CPT/HCPCS: 99212; 99214 ==

== ENCOUNTER → 2021-05-18 08:25 | Outpatient (REF) | payer MEDICAID, SELFPAY ==
--- NOTE | 2021-05-18 08:28 | CA_ITS ---
Transthoracic Echocardiogram Patient (Last, First, Middle): Ashly Costa M Gender: Female Date of : 1960 Age: 60 Procedure Date: 05/18/2021 Procedure Type: Transthoracic Echocardiogram Location: OP Height: 157.48 cm Weight: 80.29 kg BSA: 1.81 m2 Heart Rate: bpm BP: 150 / 90 mmHg Last Remodeler Repairer: PA/VINCE Referring MD: Francisco Alvares MD Paint Mixer Hand: Stalin Whelan MD Symptoms: I42.9 - Cardiomyopathy, unspecified Study Quality: Good ECG Rhythm: Sinus Conclusions: - 1. Low normal LV systolic function 2. Mild to moderate mitral regurgitation 3. Normal RV systolic pressure 4. No pericardial effusion Findings Left Ventricle Normal left ventricular cavity size. There is normal left ventricular wall thickness. The left ventricular systolic function is low normal. The visually estimated ejection fraction is between 50-55%. Spectral Doppler is indicative of a normal filling pattern. Right Ventricle Normal right ventricular cavity size and systolic function. Atria The left atrium is likely dilated. There is lipomatous hypertrophy of the interatrial septum. There is no evidence of interatrial shunt. The right atrium is normal in size. Aortic Valve The aortic valve structure and function is likely normal. There is no aortic valve stenosis. There is no aortic valve regurgitation. Mitral Valve There is mild anterior and posterior mitral leaflet thickening. There is mild to moderate mitral valve regurgitation. There is no mitral valve stenosis. Pulmonic Valve The pulmonic valve was not well visualized. There is trace pulmonic valve regurgitation. Tricuspid Valve Normal tricuspid valve structure. There is mild tricuspid valve regurgitation. The right ventricular systolic pressure is normal. The right ventricular systolic pressure is 34 mmHg. Normal right atrial pressure. There is no evidence of pulmonary hypertension. Great Vessels All visible segments of the aorta are normal in size. The pulmonary artery was not well visualized. Venous The inferior vena cava is normal in size and collapses greater than 50% with inspiration. Pericardium/Pleural There is no evidence of pericardial effusion. Prior Study Comparison No previous study in the last 5 years for comparison Measurements 2D Linear Measurements IVSd: 0.94 0.6-0.9/0.6-1.0 cm LVIDd: 4.49 3.9-5.3/4.2-5.9 cm LVIDd Index: 2.48 2.4-3.2/2.2-3.1 cm/m2 LVIDs: 3.21 2.0-3.6 cm LVPWd: 0.85 0.7-1.1 cm Ao Root: 3.30 2.1-3.5 cm LA Diam: 3.00 2.7-3.8/3.0-4.0 cm LAIDs Index: 1.66 1.5-2.3 cm/m2 LV Mass: 162.83 67-162/88-224 g LV Mass Index: 89.96 43-95/49-115 g/m2 LVOT Diam: 2.00 3.0+(-)1.3 cm 2D Systolic Function EF 4C: 53.40 >55% EF 2C: 57.80 >55% EF BiP: 55.00 >55% Mitral Valve MV Pk E: 0.93 MV PK A: 0.87 MV Decel Time: 225.00 E/A: 1.10 E'Lateral: 9.90 E'Medial: 8.27 E/E' Med: 11.20 E/E' Lat: 9.40 PHT: 66.00 MVA PHT: 3.33 Decel [place]: 4.13 MR Vol - PW Dopp: 62.06 MR VTI: 2.14 MR ERO: 29.00 MR Alias Adolph: 0.40 MR RAD: 0.80 Aortic Valve AoV Pk Adolph: 1.59 AoV Mn Adolph: 1.18 AoV VTI: 0.38 AoV Pk Grad: 10.00 Aov Mn Grad: 6.00 GLEN Cont.VTI: 1.68 LVOT LVOT Pk Adolph: 0.84 LVOT Mn Adolph: 0.62 LVOT VTI: 0.20 LVOT Pk Grad: 3.00 LVOT Mn Grad: 2.00 LVOT Diam: 2.00 LVOT Area: 3.14 Diastolic Function MV Pk E: 0.93 MV Pk A: 0.87 E/A: 1.10 E'Medial: 8.27 E/E' Med: 11.20 E' Laterial: 9.90 E/E' Lat: 9.40 Tricuspid Valve TR Pk Adolph: 2.57 TR Pk Grad: 26.00 RA Press: 8.00 RVSP: 34.00 Great Vessels Aorta Ao Root-2D: 3.30 2.0-3.7 cm Ao Asc: 3.40 2.1-3.4 cm Ao Arch: 3.00 Updated in Other Vendor System with Status of Final Stalin Whelan MD electronically signed on 05/19/2021 11:18:49 AM with status of Final
== END ==
LOC: HO.CARD 08:25
PROVIDERS: PCP General Practice; Visit Provider Internal Medicine Cardiovascular Disease
DX: I42.9 Cardiomyopathy, unspecified (principal); R06.00 Dyspnea, unspecified
CPT/HCPCS: 93306

== ENCOUNTER 2021-05-23 08:04 | Outpatient (REF) | payer MEDICAID, SELFPAY ==
--- NOTE | 2021-05-23 17:43 | PFT_ITS ---
INDICATION: Dyspnea. SPIROMETRY: The FEV1 to FVC 81% with an FEV1 of which is 91% predicted, an FVC of 2.66 L, which is predicted. No significant response to bronchodilators noted. Maximum voluntary ventilation 99% predicted. LUNG VOLUMES: Total lung capacity 95% predicted. DIFFUSION CAPACITY: DLCO 72% predicted. COMMENTS: The patient performed this study with good effort, however, had difficult time with SVC maneuvers despite different methods. The patient was unable to meet ATS standard during the study. INTERPRETATION: No obstructive nor restrictive ventilatory defects identified. No significant response to bronchodilators noted. Normal maximum voluntary ventilation. Lung volumes are within normal limits. The patient does have an isolated mild diffusion impairment. No significant findings to explain the patient's symptoms of shortness of breath. Clinical correlation warranted. MD KARLOS Osborn/YANIRA / [id number]
== END 2021-05-23 08:05 | disposition home or self-care (01) ==
LOC: HO.RESP 08:04
PROVIDERS: PCP General Practice; Visit Provider Internal Medicine Cardiovascular Disease
DX: R06.00 Dyspnea, unspecified (principal)
CPT/HCPCS: 94060; 94727; 94729

== ENCOUNTER → 2021-05-31 12:58 | Outpatient (BNVA) | payer MEDICAID, SELFPAY | PROVIDERS: PCP General Practice; Visit Provider Anesthesiology | DX: F14.10 Cocaine abuse, uncomplicated (principal); M47.816 Spondylosis without myelopathy or radiculopathy, lumbar region; M47.812 Spondylosis without myelopathy or radiculopathy, cervical region; G62.9 Polyneuropathy, unspecified | CPT/HCPCS: 99212 ==

== ENCOUNTER 2021-06-07 07:29 | Outpatient (REF) | payer MEDICAID, SELFPAY | END 2021-06-07 07:30 | disposition home or self-care (01) | LOC: HO.HOSX 07:29 | PROVIDERS: Visit Provider Physician Assistant | DX: Z13.89 Encounter for screening for other disorder (principal) ==

== ENCOUNTER 2021-06-15 05:33 | Outpatient (REF) | payer MEDICAID, SELFPAY ==
--- NOTE | ~2021-06-15 | XR_ITS ---
EXAMINATION: XR ANKLE, LEFT CLINICAL INFORMATION: Pain. COMPARISON: None TECHNIQUE: AP, lateral, and mortise views of the left ankle. FINDINGS: There is no acute fracture or dislocation seen. The ankle mortise and subtalar joints are normal. There is mild lateral malleolar soft tissue swelling. XR/XR ankle LT min 3V IMPRESSION: Mild lateral malleolar soft tissue swelling suggestive ligamentous injury. No visible acute fracture, dislocation or subluxation seen.
== END 2021-06-15 05:34 | disposition home or self-care (01) ==
LOC: HO.HOSX 05:33
PROVIDERS: Visit Provider Physician Assistant
DX: S82.832A Other fracture of upper and lower end of left fibula, initial encounter for closed fracture (principal)
CPT/HCPCS: 73610; 99212

== ENCOUNTER 2021-06-26 12:53 | Outpatient (REF) | payer MEDICAID, SELFPAY ==
--- NOTE | ~2021-06-26 | MR_ITS ---
EXAMINATION: MR CERVICAL SPINE WITHOUT CONTRAST CLINICAL INFORMATION: Spondylosis without myelopathy. Self-reported neck pain and cracking noise. Limited range of motion. History of bilateral arm weakness, arm pain. COMPARISON: Cervical spine radiographs 12/07/2020. TECHNIQUE: MRI of the cervical spine was obtained using routine sequences without contrast. FINDINGS: VERTEBRAL BODIES AND PARASPINAL SOFT TISSUES: Vertebral body height, alignment and marrow signal are normal in appearance aside from mild multilevel endplate discogenic marrow signal changes. CERVICOMEDULLARY JUNCTION AND VISUALIZED POSTERIOR FOSSA: Normal. SPINAL LEVELS: C2-C3: Minimal central disc protrusion. No significant central or foraminal stenoses. C3-C4: Minimal posterior broad-based disc bulge. No significant central or foraminal stenoses. Mild left facet hypertrophic changes. C4-C5: Moderate bilateral foraminal stenoses. Mild central stenosis. Findings arise secondary to a moderate posterior broad-based disc bulge with bilateral uncovertebral joint incorporation resulting in approximately 50% bilateral foraminal narrowing and partial effacement of the ventral thecal sac CSF space. Additionally, mild bilateral ligamentum flavum hypertrophy is present along with mild bilateral facet hypertrophy. C5-C6: Marked right foraminal stenosis. Moderate-marked left foraminal stenosis. Moderate central stenosis. Findings are present in the setting of a moderate posterior broad-based disc-osteophyte complex with focal bilateral uncovertebral joint incorporation with findings most pronounced on the right. Additionally, mild bilateral facet hypertrophic changes are noted. Partial concentric effacement of the adjacent thecal sac CSF space is identified. C6-C7: Moderate left foraminal stenosis. Mild right foraminal stenosis. Mild central stenosis. Findings are present in the setting of a posterior broad-based disc-osteophyte complex with left parasagittal and intraforaminal eccentricity. Mild left facet hypertrophic changes. C7-T1: No central or foraminal stenoses. MR/MR cervical spine wo con IMPRESSION: 1. Multilevel chronic spondylosis of the cervical spine as detailed above and prominent findings noted below. 2. C5-C6 marked right foraminal stenosis and moderate-marked left foraminal stenosis. Findings may be associated with C6 nerve root impingements. 3. C4-C5 moderate bilateral foraminal stenoses. 4. C6-C7 moderate left foraminal stenosis.
== END 2021-06-26 12:54 | disposition home or self-care (01) ==
LOC: HO.MRI 12:53
PROVIDERS: PCP General Practice; Visit Provider Anesthesiology
DX: M47.812 Spondylosis without myelopathy or radiculopathy, cervical region (principal)
CPT/HCPCS: 72141

== ENCOUNTER → 2021-06-27 08:00 | Outpatient (REF) | payer MEDICAID, SELFPAY ==
--- NOTE | ~2021-06-27 | NM_ITS ---
Lexiscan Myocardial perfusion study Indication: Shortness of breath, chest pain, assess for coronary disease and ischemia Technique: The patient was brought in for a Lexiscan perfusion study on 06/27/2021 and was injected 0.4 mg of Lexiscan intravenously. Within a minute of this injection 25 mCi of sestamibi was given intravenously. Images were obtained using the SPECT gamma camera interlaced with the gating device. Images were obtained in supine position. Resting perfusion study was performed on 06/28/2021. Patient was administered 25 mCi of sestamibi intravenously at rest. Images were then obtained in supine position. Total DLP 86mGy-cm. Images were processed with the software and compared side to side in short axis, horizontal long axis and vertical long axis views. Findings: Raw acquisition was reviewed. The stress perfusion study showed no significant perfusion abnormality. Both uncorrected as well as CT attenuation corrected images were reviewed. The gated study shows normal LV systolic function with calculated LVEF of 68%. LV cavity is normal in size. The gated study shows normal wall thickening and contraction of segments. Resting study shows no significant perfusion abnormality. Gating at rest reveals normal wall motion with ejection fraction at 67%. The findings are consistent with no reversible or fixed perfusion abnormality. NM/NM juancarlos perf SPECT rest & str Impression: 1. Myocardial perfusion imaging study shows likely normal myocardial perfusion. 2. Gated LVEF is 68% during stress and 67% during rest. 3. Transient ischemic dilatation not present. EKG component of the test reported separately.
--- NOTE | 2021-06-27 08:04 | CA_ITS ---
Acquisition Time: 2021-06-27 08:12:35 Total Exercise Time: 00:02:00 Test Indications: Dyspnea Medications: APIXABAN CARBIDOPA/LEVADOPA CERTRIZINE CLOAZAPAN GABAPENTIN PRIMIDONE TOPIRIMATE CHANTIX Protocol: LEXISCAN Max HR: 104 BPM 65% of Pred: 160 BPM Max BP: 124/082 mmHG Max Work Load: 1.0 METS Pharmacological stress test with Lexiscan injection, while sitting and kicking her legs, without anginal symptoms, with isolated PVC, with normotensive response to injection, with nondiagnostic EKG for ischemia. Nuclear images pending. Test reviewed with Dr Whelan. Referred By: Do Pradhan Overread By: DO PRADHAN
== END ==
LOC: HO.CARD 08:00
PROVIDERS: Visit Provider Nurse Practitioner Family
DX: R07.89 Other chest pain (principal); R06.00 Dyspnea, unspecified; R93.1 Abnormal findings on diagnostic imaging of heart and coronary circulation
CPT/HCPCS: 78452; 93017; A9500; J0280; J2785

== ENCOUNTER → 2021-07-10 13:35 | Outpatient (BNVA) | payer MEDICAID, SELFPAY | PROVIDERS: PCP General Practice; Visit Provider Anesthesiology | DX: M47.816 Spondylosis without myelopathy or radiculopathy, lumbar region (principal); M47.812 Spondylosis without myelopathy or radiculopathy, cervical region; G62.9 Polyneuropathy, unspecified; F14.10 Cocaine abuse, uncomplicated | CPT/HCPCS: 99212 ==

== ENCOUNTER → 2021-09-25 12:05 | Outpatient (BNVA) | payer MEDICAID, SELFPAY | PROVIDERS: PCP Nurse Practitioner Family; Visit Provider Anesthesiology ==

== ENCOUNTER → 2021-11-06 11:38 | Outpatient (BNVA) | payer OTHER, SELFPAY | PROVIDERS: PCP Nurse Practitioner Family; Referring Provider Nurse Practitioner Family; Visit Provider Internal Medicine Cardiovascular Disease | DX: R07.89 Other chest pain (principal); R06.00 Dyspnea, unspecified | CPT/HCPCS: 93005; 99212 ==

== ENCOUNTER 2021-11-15 08:59 | Outpatient (REF) | payer OTHER, SELFPAY ==
[2021-11-15 09:52] LABS: Estimated Average Glucose 94 mg/dL; Hemoglobin A1c % 4.9 %
[2021-11-15 10:10] LABS: Alanine Aminotransferase 6 U/L (0-31); Albumin Level 4.2 g/dL (3.5-5.0); Alkaline Phosphatase 76 U/L (39-117); Anion Gap 10 (12-20); Aspartate Amino Transferase 16 U/L (5-31); Bilirubin Total 0.3 mg/dL (0.0-1.0); Blood Urea Nitrogen 11 mg/dL (9-16); Calcium 9.2 mg/dL (8.4-10.2); Carbon Dioxide 21 mmol/L (22-29); Chloride 117 mmol/L (96-108); Estimated Glomerular Filt Rate > 60; Glucose Fasting 107 mg/dL (60-99); Potassium 4.3 mmol/L (3.3-5.1); Sodium 144 mmol/L (135-145); Total Protein 6.7 g/dL (6.5-8.0)
[2021-11-15 10:29] LABS: TSH reflex Free T4 0.81 uIU/mL (0.32-4.0)
[2021-11-15 10:41] LABS: Folate > 20.0 ng/mL (> or = 4.0); Vitamin B12 > 2000 pg/mL (200-900)
[2021-11-18 21:41] LABS: Intrinsic Factor Antibodies Positive (Negative)
== END 2021-11-15 09:00 | disposition home or self-care (01) ==
LOC: HO.LAB 08:59
PROVIDERS: PCP Physician Assistant; Visit Provider Physician Assistant
DX: R56.9 Unspecified convulsions (principal); D51.0 Vitamin B12 deficiency anemia due to intrinsic factor deficiency; I10 Essential (primary) hypertension; Z12.39 Encounter for other screening for malignant neoplasm of breast; Z13.1 Encounter for screening for diabetes mellitus
CPT/HCPCS: 36415; 80053; 82607; 82746; 83036; 84443; 86340

== ENCOUNTER 2021-11-28 08:29 | Outpatient (REF) | payer OTHER, SELFPAY ==
--- NOTE | ~2021-11-28 | MM_ITS ---
EXAMINATION: BONE DENSITOMETRY CLINICAL INDICATION: Essential, primary hypertension. COMPARISON: None (current study represents initial baseline exam). TECHNIQUE: Using a [employer] DXA System (software version: 13.1) manufactured by [email or web address], dual-energy x-ray absorptiometry was performed of the lumbar spine and left hip. The images are of good technical quality. Summary results are attached. FINDINGS: AP SPINE L1-L4: BMD 0.899 g/cm2, Z-score -1.1, T-score -2.3, osteopenia. LEFT FEMUR, NECK: BMD 0.635 g/cm2, Z-score -1.6, T-score -2.9, osteoporosis. LEFT FEMUR, TOTAL: BMD 0.678 g/cm2, Z-score -1.7, T-score -2.6, osteoporosis. IDENTIFIED RISK FACTORS: Low calcium intake, tobacco use (current smoker), history of fracture (adult). Early menopause, secondary osteoporosis. HISTORY OF FRACTURE: Ankle. MEDICATIONS: None listed. MM/XR DEXA axial skeleton IMPRESSION: 1. DIAGNOSIS: Osteoporosis based on the lowest T-score value of -2.9 in the femoral neck applying World Health Organization criteria. 2. 10-YEAR FRACTURE RISK PREDICTION, FRAX: According to the guidelines, FRAX calculation should only be performed on patients in the osteopenia bone density category. 3. Treatment Recommendations: NOF guidelines recommend consideration for treatment in postmenopausal women and men age 50 and older presenting with the following: -A hip or vertebral (clinical or morphometric) fracture. -T-score less than or equal to -2.5 at the femoral neck or spine after appropriate evaluation to exclude secondary causes. -Low bone mass at the hip or spine and a 10-year fracture probability by FRAX of greater than or equal to 3% for hip fracture or greater than or equal to 20% for major osteoporotic fracture based on the [place] adapted WHO algorithm. 4. Other Recommendations: All treatment decisions require clinical judgment and consideration of individual patient factors, including patient preferences, comorbidities, previous drug use, risk factors not captured in the FRAX model (e.g. frailty, falls, vitamin D deficiency, increased bone turnover, interval significant decline in bone density) and possible under or overestimation of fracture risk by FRAX. Additional medical evaluation for secondary cause of low bone mineral density may be appropriate. FUTURE SCAN RECOMMENDATION: People with diagnosed cases of osteoporosis or at high risk for fracture should have regular bone mineral density tests. For patients eligible for Medicare, routine testing is allowed once every 2 years. The testing frequency can be increased to one year for patients who have rapidly progressing disease, those who are receiving or discontinuing medical therapy to restore bone mass, or have additional risk factors.
== END 2021-11-28 08:30 | disposition home or self-care (01) ==
LOC: HO.MAMMO 08:29
PROVIDERS: Visit Provider Physician Assistant
DX: Z13.820 Encounter for screening for osteoporosis (principal); M81.0 Age-related osteoporosis without current pathological fracture; Z78.0 Asymptomatic menopausal state; F17.200 Nicotine dependence, unspecified, uncomplicated; I10 Essential (primary) hypertension
CPT/HCPCS: 77080

== ENCOUNTER 2021-12-27 10:10 | Outpatient (REF) | payer OTHER, SELFPAY ==
[2021-12-27 11:08] LABS: Hematocrit 38.8 % (37.0-47.0); Hemoglobin 12.9 g/dl (12.0-16.0); Mean Corpuscular HGB Conc 33.2 g/dl (31.0-35.0); Mean Corpuscular Hemoglobin 32.7 pg (27.0-33.0); Mean Corpuscular Volume 98.2 fL (80.0-98.0); Mean Platelet Volume 10.9 fL (9.4-12.3); Platelet Count 220 X10*3/uL (160-400); Red Blood Count 3.95 X10*6/uL (4.20-5.50); Red Cell Distribution Width 12.1 % (11.0-16.0); White Blood Count 4.4 X10*3/uL (4.8-10.8)
[2021-12-27 13:14] LABS: Ferritin 63 ng/mL (10-250); Vitamin D 25-OH Total 15.3 ng/mL (>30)
[2021-12-27 13:29] LABS: Anion Gap 10 (12-20); Carbon Dioxide 22 mmol/L (22-29); Chloride 111 mmol/L (96-108); Estimated Glomerular Filt Rate 53; Glucose Random 92 mg/dL (60-115); Iron 109 mcg/dL (30-160); Percent Iron Saturation 42 % (15-50); Sodium 138 mmol/L (135-145); Total Iron Binding Capacity 258 mcg/dL (228-428); Unsaturated Iron Binding 149 ug/dL
[2021-12-27 15:11] LABS: Blood Urea Nitrogen 14 mg/dL (9-16); Calcium 9.2 mg/dL (8.4-10.2); Potassium 4.8 mmol/L (3.3-5.1)
== END 2021-12-27 10:11 | disposition home or self-care (01) ==
LOC: HO.LAB 10:10
PROVIDERS: PCP Physician Assistant; Visit Provider Physician Assistant
DX: R53.83 Other fatigue (principal); G20 Parkinson's disease; D50.9 Iron deficiency anemia, unspecified
CPT/HCPCS: 36415; 80048; 82306; 82728; 83540; 85027

== ENCOUNTER 2022-01-19 13:09 | Day surgery (SDC) | payer OTHER, SELFPAY ==
--- NOTE | ~2022-01-19 | FL_ITS ---
EXAMINATION: XR FL WITH IMAGES CLINICAL INFORMATION: Steroid injection. COMPARISON: None TECHNIQUE: Fluoroscopy performed by Dr. Rafael Joseph. Fluoroscopy Time: 0.1 minutes. DAP: 0.6 mGycm2. Images: 2. FINDINGS: Images demonstrate needle placement and contrast injection over the lower posterior cervical spine. FL/FL guidance in OR IMPRESSION: Fluoroscopy guidance for pain management procedure.
[2022-01-19 12:40] VITALS: BMI 28.5
[2022-01-19 13:25] VITALS: BP 149/86; PULSE 69; RESP 19; TEMP 36.3; O2SAT 98
--- NOTE | 2022-01-19 13:34 | HO.ANESPROP2 ---
[facility] Active Problems Active Problems: All Active Problems (Updated 01/10/22 @ 10:06 by Sudhir Martin PA-C) Breast cancer screening (Acute) Fatigue (Acute) Osteoarthritis of left knee (Acute) Environmental allergies (Acute) Osteoporosis (Acute) Sinusitis (Acute) Smoker (Acute) LUISA (generalized anxiety disorder) (Acute) MDD (major depressive disorder), recurrent episode, moderate (Acute) Postmenopausal (Acute) HTN (hypertension) (Acute) Screening for hypercholesterolemia (Acute) Screening for hypothyroidism (Acute) Screening for diabetes mellitus (DM) (Acute) Pernicious anemia (Acute) Parkinson disease (Acute) Panic attacks (Acute) Seizure (Acute) DVT (deep venous thrombosis) (Acute) Spinal stenosis, cervical region (Acute) Abnormal echocardiogram findings without diagnosis (Acute) Atypical chest pain (Acute) GARZA (dyspnea on exertion) (Acute) Fracture of distal end of fibula with routine healing (Acute) Lateral malleolar fracture (Acute) Peripheral polyneuropathy (Acute) Spondylosis of cervical spine (Acute) Spondylosis of lumbar spine (Acute) Cocaine abuse (Acute) Past Medical History Medical History Alcohol abuse Anxiety Arthritis Asthma Back pain Cocaine abuse Depression DVT (deep venous thrombosis) Former cigarette smoker GERD (gastroesophageal reflux disease) Heart murmur Hepatitis History of celiac disease History of cocaine abuse History of frequent headaches History of heroin abuse HIV (human immunodeficiency virus infection) Hydradenitis Lumbago with sciatica, left side On anticoagulant therapy Panic attacks Parkinson disease Peripheral polyneuropathy PTSD (post-traumatic stress disorder) Recovering alcoholic Seizure Spinal stenosis, cervical region Spondylosis of cervical spine Spondylosis of lumbar spine Family History Family History Mother No problems noted. Family history of problems with anesthesia: No Surgical History Surgical History H/O excision of ganglion cyst History of carpal tunnel surgery of left wrist History of hemorrhoidectomy Hx of colonoscopy Hx of esophagogastroduodenoscopy Hx of nasal septoplasty History of Problems with Anesthesia: No Social History Social History Housing: Apartment Are you a primary childcare center administrator to a significant other at home: No Do you presently have visiting nurse or other home services: Yes Alcohol intake: former Year quit: 2003 Patient Tobacco Use Status: Current everyday Tobacco user Tobacco use type: Cigarette Cigarettes Per Day: 3 Years Smoked: 45 e-Cigarette/Vaping Use: Never Used Second Hand Smoke Exposure: No Substance Use Type: Crack/Cocaine and Heroin Are you DNR?: No Advance Directives: No Advance Directives Information Provided: Yes Current occupational status: disabled Meds Allergies Allergy/AdvReac Type Severity Reaction Status Date / Time fluoxetine [From PROZAC] Allergy Severe ANNETTE Verified 01/10/22 09:53 cat dander [CATS] Allergy Mild HAYFEVER Verified 01/10/22 09:53 Chocolate Allergy Mild HEADACHES Verified 01/10/22 09:53 dog dander [DOGS] Allergy Mild HAYFEVER Verified 01/10/22 09:53 Environmental Allergy Mild HAYFEVER Uncoded 05/31/21 13:18 Home Medications Medication Instructions Recorded Confirmed Last Taken Type cetirizine 10 mg tablet 10 mg PO DAILY 09/12/20 01/10/22 01/19/22 History clonazepam 1 mg tablet 1 mg PO BID 09/12/20 01/10/22 01/19/22 History topiramate 200 mg tablet 200 mg PO BID 09/12/20 01/10/22 01/19/22 History carbidopa 25 mg-levodopa 100 mg 1 tab PO TID tab 11/06/21 01/10/22 01/19/22 History tablet Exam Exam Date and Time: January 19, 2022 1334 Height,Weight and Vital Signs: Height 5 ft 2 in Weight 70.76 kg Airway Mallampati Class: I TM Dist: >3cm Neck ROM: Full Partial: Lower Loose/Missing/Broken Teeth: Yes, Upper and Lower Heart: RRR Lungs: CTA Assessment and Plan Assessment Anesthesia Assessment: Anesthesia Plan Discussed and Chart Reviewed Final Anesthetic Review Family History of Problems with Anesthesia: No History of Problems with Anesthesia: No NPO: Yes ASA Class: III Final Preanesthetic Review: Meds/Allgs Chart Reviewed, Consent Obtained/Reviewed and Anes Risks/Benef Reviewed Patient Risk: Intermediate Procedure Risk: Low Anesthetic Plan Anesthetic Plan: MAC: Disposition: Standard PACU
--- NOTE | 2022-01-19 13:49 | PC.NURSE ---
anesthesia aware pt drank tea plain at 1115
--- NOTE | 2022-01-19 13:51 | P.HPSUR_ITS ---
Pre-Procedural Eval Section A Date of Service: 01/19/22 The patient is an INPATIENT: No Changes since office visit: Yes Patient answered all questions The History & Physical has been completed within 30 days and I have reviewed it.: No Section B Chief Complaint: Spondylosis of Cervical Spine Details of Present Illness: as above Relevant Family History (Specify if Yes): No Relevant Social History: None Present Medications: None Medical History: No relevant PMH History of Previous Operations: No relevant previous surgery Allergies: Allergies Allergy/AdvReac Type Severity Reaction Status Date / Time fluoxetine [From PROZAC] Allergy Severe ANNETTE Verified 01/10/22 09:53 cat dander [CATS] Allergy Mild HAYFEVER Verified 01/10/22 09:53 Chocolate Allergy Mild HEADACHES Verified 01/10/22 09:53 dog dander [DOGS] Allergy Mild HAYFEVER Verified 01/10/22 09:53 Environmental Allergy Mild HAYFEVER Uncoded 05/31/21 13:18 Review of Systems Sugical H&P ROS: Negative: Constitution, Cardiovascular, Respiratory, Neurological, Psychiatric, Hem-Onc, Allergic/Immunologic, Gastrointestinal, Genitourinary, Musculoskeletal, Integumentary, Endocrine and Eyes/Ears/Nose /Throat Exam Surgical H&P Exam: Normal: HEENT, Normal: Heart, Normal: Lungs, Normal: Extremities, Normal: Abdomen, Normal: Skin and Normal: Neurological Plan Diagnosis/Plan: Unchanged I have reviewed the history and physical and performed a pertinent physical examination on my patient. No changes have occurred unless specified.
--- NOTE | 2022-01-19 13:52 | P.HPSUR_ITS ---
Pre-Procedural Eval Section A Date of Service: 01/19/22 The patient is an INPATIENT: No Changes since office visit: Yes Patient answered all questions The History & Physical has been completed within 30 days and I have reviewed it.: No Section B Chief Complaint: Spondylosis of Cervical Spine Details of Present Illness: as above Relevant Family History (Specify if Yes): No Relevant Social History: None Present Medications: see Short Stay Collaborative assessment Medical History: No relevant PMH History of Previous Operations: No relevant previous surgery Allergies: Allergies Allergy/AdvReac Type Severity Reaction Status Date / Time fluoxetine [From PROZAC] Allergy Severe ANNETTE Verified 01/10/22 09:53 cat dander [CATS] Allergy Mild HAYFEVER Verified 01/10/22 09:53 Chocolate Allergy Mild HEADACHES Verified 01/10/22 09:53 dog dander [DOGS] Allergy Mild HAYFEVER Verified 01/10/22 09:53 Environmental Allergy Mild HAYFEVER Uncoded 05/31/21 13:18 Plan I have reviewed the history and physical and performed a pertinent physical examination on my patient. No changes have occurred unless specified.
--- NOTE | 2022-01-19 14:25 | P.BOP_ITS ---
Brief Operative Note Date of Service: 01/19/22 Pre-op diagnosis: spondylosis of cervical spine Procedure: C6-C7 epidural steroid injection Implants: none Surgeon: Rafael Joseph MD Anesthesia: MAC Was an Manager Disaster Recovery used for this Procedure?: No Estimated blood loss (mL): 0 Pathology: none sent Condition: stable Disposition: PACU
[2022-01-19 14:32] VITALS: BP 140/47; PULSE 68; RESP 16; TEMP 36.2; O2SAT 100
[2022-01-19 14:47] VITALS: BP 135/72; PULSE 63; RESP 18; TEMP 36.2; O2SAT 97
--- NOTE | 2022-01-19 14:53 | W.PM.OPN ---
Operative Note Operative Note Date of Service: 01/19/22 Narrative: Ashly is very pleasant 61 years old female who came today into the operating room for the attempt of treatment of degeneration of cervical spine. Informed consent was thoroughly explained to the patient. After that the patient was taken to the operating room where she was positioned prone right opting table. Her posterior neck and upper back were prepped with ChloraPrep and draped with sterile utility towels. Time-out was performed delineating correct site and side of the procedure name and date of of the patient risk of fire needs of antibiotic prophylaxis which is none and risk of DVT. C-arm was brought over the operating field and sq picture of C6 and C7 vertebra were delineated on the screen. Right lamina of C7 vertebra was chosen as the target of the injection. The most adjacent to the C7 spinous process lamina projection to the skin was injected with lidocaine 1%. After that 10 cm Touhy needle 20 gauge was inserted through the skin wheal and advanced to were the epidural space under anterior posterior and lateral views. Loss of resistance to air technique was used to locate epidural space. When loss of resistance was felt a and the tip of the needle appeared at the edge of the interlaminar line injection of the contrast was performed demonstrating posterior epidural spread of the contrast. After that treatment solution of the normal saline 5 cc mixed with Decadron 8 mg and with addition will of trace amount of preservative-free lidocaine 1% was injected into the needle. The instruction was given to the patient to exhale than hold her breath during the injection. Upon completion of the injection the needle was removed sterile dressing was applied. The patient tolerated procedure well she was taking outside of the operating room to recovery room where she recovered uneventfully.
== END 2022-01-19 15:14 | disposition home or self-care (01) ==
PROVIDERS: PCP Physician Assistant; Visit Provider Anesthesiology
PROC: 3E0R33Z Introduction of Anti-inflammatory into Spinal Canal, Percutaneous Approach (ICD-10-PCS; CPT 62321; principal; 2022-01-19 14:50)
DX: M47.812 Spondylosis without myelopathy or radiculopathy, cervical region (principal); M48.02 Spinal stenosis, cervical region; M47.816 Spondylosis without myelopathy or radiculopathy, lumbar region; M54.42 Lumbago with sciatica, left side; G62.9 Polyneuropathy, unspecified; M81.0 Age-related osteoporosis without current pathological fracture; G20 Parkinson's disease; B20 Human immunodeficiency virus [HIV] disease; I10 Essential (primary) hypertension; K21.9 Gastro-esophageal reflux disease without esophagitis; E55.9 Vitamin D deficiency, unspecified; D51.0 Vitamin B12 deficiency anemia due to intrinsic factor deficiency; J45.909 Unspecified asthma, uncomplicated; F33.1 Major depressive disorder, recurrent, moderate; Z86.718 Personal history of other venous thrombosis and embolism; Z79.01 Long term (current) use of anticoagulants; Z79.899 Other long term (current) drug therapy; F19.10 Other psychoactive substance abuse, uncomplicated; F10.10 Alcohol abuse, uncomplicated; F17.210 Nicotine dependence, cigarettes, uncomplicated; M50.323 Other cervical disc degeneration at C6-C7 level
CPT/HCPCS: 62321; J1100; J2250; J3010; J3300; Q9967

== ENCOUNTER 2022-02-14 07:50 | Outpatient (REF) | payer OTHER, SELFPAY ==
--- NOTE | ~2022-02-14 | MM_ITS ---
EXAMINATION: MM SCREENING DIGITAL BREAST TOMOSYNTHESIS, BILATERAL CLINICAL INFORMATION: Screening. Asymptomatic. The lifetime risk of breast cancer based on the Tyrer-Cuzick Model is 5%. COMPARISON: Mammography: 09/22/2020, 09/09/2019, 03/05/2017, targeted left breast ultrasound 09/22/2020 TECHNIQUE: Digital breast tomosynthesis is performed in both the craniocaudal and mediolateral oblique views along with computer-aided detection (CAD). Synthesized 2D images are generated from the tomosynthesis. FINDINGS: There are scattered areas of fibroglandular density (ACR BI-RADS breast composition Category b). There are no significant masses, abnormal calcifications, or other abnormalities. Small circumscribed nodule mid 8:30 o'clock left breast is stable. No developing density. The axilla and skin contours are unremarkable. MM/MM tomosynthesis screening BI IMPRESSION: No mammographic evidence of malignancy. ASSESSMENT: BI-RADS 2: Benign RECOMMENDATION: Routine annual mammography screening. This patient's information was entered into a reminder system with a target due date for their next mammogram.
[2022-02-14 09:28] LABS: Hematocrit 40.3 % (37.0-47.0); Hemoglobin 13.4 g/dl (12.0-16.0); Mean Corpuscular HGB Conc 33.3 g/dl (31.0-35.0); Mean Corpuscular Hemoglobin 31.4 pg (27.0-33.0); Mean Corpuscular Volume 94.4 fL (80.0-98.0); Mean Platelet Volume 10.9 fL (9.4-12.3); Platelet Count 230 X10*3/uL (160-400); Red Blood Count 4.27 X10*6/uL (4.20-5.50); Red Cell Distribution Width 12.9 % (11.0-16.0); White Blood Count 5.4 X10*3/uL (4.8-10.8)
[2022-02-14 09:58] LABS: Alanine Aminotransferase < 6 U/L (0-31); Albumin Level 4.5 g/dL (3.5-5.0); Alkaline Phosphatase 68 U/L (39-117); Anion Gap 12 (12-20); Aspartate Amino Transferase 13 U/L (5-31); Bilirubin Total 0.5 mg/dL (0.0-1.0); Blood Urea Nitrogen 18 mg/dL (9-16); Calcium 9.5 mg/dL (8.4-10.2); Carbon Dioxide 20 mmol/L (22-29); Chloride 111 mmol/L (96-108); Cholesterol 185 mg/dL; Estimated Glomerular Filt Rate 50; Glucose Fasting 95 mg/dL (60-99); HDL Cholesterol 29 mg/dL; LDL Cholesterol Calculated 131 mg/dl; Potassium 4.4 mmol/L (3.3-5.1); Sodium 139 mmol/L (135-145); Total Protein 7.4 g/dL (6.5-8.0); Triglycerides 129 mg/dL
[2022-02-14 10:14] LABS: Amphetamine Screen Urine Not Detected (Not Detect); Barbiturates, Urine POSITIVE (Not Detect); Benzodiazepines Screen Urine POSITIVE (Not Detect); Cannabinoid Screen Urine Not Detected (Not Detect); Cocaine Screen Urine Not Detected (Not Detect); Fentanyl, urine Not Detected (Not Detect); Opiate Screen Urine Not Detected (Not Detect); Phencyclidine Screen Urine Not Detected (Not Detect)
[2022-02-14 10:18] LABS: Folate 17.4 ng/mL (> or = 4.0); Vitamin B12 461 pg/mL (200-900)
[2022-02-23 14:21] LABS: Parietal Cell Antibody <=20.0 Unit (<=20.0)
== END 2022-02-14 07:51 | disposition home or self-care (01) ==
LOC: HO.MAMMO 07:50
PROVIDERS: PCP Physician Assistant; Visit Provider Physician Assistant
DX: Z12.31 Encounter for screening mammogram for malignant neoplasm of breast (principal); D51.0 Vitamin B12 deficiency anemia due to intrinsic factor deficiency; I10 Essential (primary) hypertension; F14.10 Cocaine abuse, uncomplicated
CPT/HCPCS: 77063; 77067; 80053; 80061; 80307; 82607; 82746; 83516; 85027

== ENCOUNTER 2022-03-29 07:59 | Outpatient (REF) | payer OTHER, SELFPAY ==
[2022-03-29 13:52] LABS: CT PCR NOT DETECTED (Not Detect.); NG PCR NOT DETECTED (Not Detect.)
[2022-04-03 12:06] LABS: HPV mRNA E6/E7 rflx Not Detected (Not Detected)
== END 2022-03-29 08:00 | disposition home or self-care (01) ==
LOC: HO.LAB 07:59
PROVIDERS: PCP Physician Assistant; Visit Provider Advanced Practice Midwife
DX: Z01.419 Encounter for gynecological examination (general) (routine) without abnormal findings (principal); Z11.51 Encounter for screening for human papillomavirus (HPV); Z20.2 Contact with and (suspected) exposure to infections with a predominantly sexual mode of transmission; R82.998 Other abnormal findings in urine
CPT/HCPCS: 81003; 87491; 87591; 87624; 88142

== ENCOUNTER 2022-04-02 09:53 | Outpatient (REF) | payer OTHER, SELFPAY ==
[2022-04-02 11:04] LABS: HBc Num1 7.83 S/CO (0.00-0.79)
[2022-04-02 11:20] LABS: Syphilis Screen Nonreactive (Nonreactive)
[2022-04-02 13:02] LABS: HBc Num2 8.11 S/CO; HBc Num3 8.07 S/CO; Hepatitis B Core Antibody Reactive (Nonreactive)
[2022-04-03 08:06] LABS: Hepatitis B Core Antibody IgM NON-REACTIVE (NON-REACTIVE)
== END 2022-04-02 09:54 | disposition home or self-care (01) ==
LOC: HO.LAB 09:53
PROVIDERS: PCP Physician Assistant; Visit Provider Advanced Practice Midwife
DX: Z11.3 Encounter for screening for infections with a predominantly sexual mode of transmission (principal); Z20.2 Contact with and (suspected) exposure to infections with a predominantly sexual mode of transmission
CPT/HCPCS: 36415; 86704; 86705; 86780

== ENCOUNTER 2022-05-02 06:05 | Outpatient (REF) | payer OTHER, SELFPAY ==
[2022-05-02 07:13] LABS: Hematocrit 35.8 % (37.0-47.0); Hemoglobin 11.8 g/dl (12.0-16.0); Mean Corpuscular Hemoglobin 32.6 pg (27.0-33.0); Mean Corpuscular Volume 98.9 fL (80.0-98.0); Mean Platelet Volume 10.6 fL (9.4-12.3); Platelet Count 223 X10*3/uL (160-400); Red Blood Count 3.62 X10*6/uL (4.20-5.50); Red Cell Distribution Width 13.4 % (11.0-16.0); White Blood Count 5.3 X10*3/uL (4.8-10.8)
[2022-05-02 07:52] LABS: Alanine Aminotransferase < 6 U/L (0-31); Albumin Level 4.2 g/dL (3.5-5.0); Alkaline Phosphatase 53 U/L (39-117); Anion Gap 12 (12-20); Aspartate Amino Transferase 16 U/L (5-31); Bilirubin Total 0.4 mg/dL (0.0-1.0); Blood Urea Nitrogen 14 mg/dL (9-16); Calcium 8.8 mg/dL (8.4-10.2); Carbon Dioxide 21 mmol/L (22-29); Chloride 113 mmol/L (96-108); Cholesterol 140 mg/dL; Estimated Glomerular Filt Rate 52; Glucose Fasting 89 mg/dL (60-99); HDL Cholesterol 27 mg/dL; LDL Cholesterol Calculated 89 mg/dl; Potassium 4.7 mmol/L (3.3-5.1); Sodium 141 mmol/L (135-145); Total Protein 6.6 g/dL (6.5-8.0); Triglycerides 122 mg/dL
[2022-05-02 08:47] LABS: Folate 19.5 ng/mL (> or = 4.0); Vitamin B12 344 pg/mL (200-900)
[2022-05-02 11:01] LABS: Creatinine Urine 31.89 mg/dL; Microalbumin Urine < 5.0 mg/L
== END 2022-05-02 06:06 | disposition home or self-care (01) ==
LOC: HO.LAB 06:05
PROVIDERS: PCP Physician Assistant; Visit Provider Physician Assistant
DX: I10 Essential (primary) hypertension (principal); E53.8 Deficiency of other specified B group vitamins; D51.0 Vitamin B12 deficiency anemia due to intrinsic factor deficiency
CPT/HCPCS: 36415; 80053; 80061; 82043; 82607; 82746; 85027

== ENCOUNTER → 2022-05-14 13:47 | Outpatient (BNVA) | payer OTHER, SELFPAY | PROVIDERS: PCP Physician Assistant; Visit Provider Anesthesiology | DX: M47.816 Spondylosis without myelopathy or radiculopathy, lumbar region (principal); M47.812 Spondylosis without myelopathy or radiculopathy, cervical region; G62.9 Polyneuropathy, unspecified; F14.10 Cocaine abuse, uncomplicated | CPT/HCPCS: 99212 ==

== ENCOUNTER 2022-06-13 12:10 | Outpatient (REF) | payer OTHER, SELFPAY ==
--- NOTE | ~2022-06-13 | US_ITS ---
EXAMINATION: US VENOUS ULTRASOUND WITH DOPPLER LOWER EXTREMITY, LEFT CLINICAL INFORMATION: Lower extremity swelling. Prior history chronic DVT. Assess for acute DVT. COMPARISON: Left lower extremity venous ultrasound with Doppler 03/31/2021, 07/06/2020. TECHNIQUE: Ultrasound of the deep veins is performed from the hip to the calf with compression sonography and color and pulse Doppler assessment. Spectral analysis with color-flow imaging is performed. FINDINGS: There is no acute DVT left lower extremity from prior studies. Again, there are chronic appearing changes involving the common femoral vein and the femoral vein in the upper and mid thigh consistent with chronic stable DVT. These areas are incompletely compressible and show some subtle mural echogenicity and no venous dilatation. These areas are otherwise patent with color-flow. No obstruction. No popliteal fossa cyst demonstrated. Node image left groin shows normal jalyn architecture and measures only 0.6 cm short axis. US/US venous duplex LE IMPRESSION: -No acute DVT. -Chronic changes from prior DVT common femoral vein and upper and mid femoral vein similar to prior exams.
== END 2022-06-13 12:11 | disposition home or self-care (01) ==
LOC: HO.US 12:10
PROVIDERS: PCP Physician Assistant; Visit Provider Physician Assistant
DX: R60.0 Localized edema (principal); M79.605 Pain in left leg
CPT/HCPCS: 93971

== ENCOUNTER → 2022-07-03 07:54 | Outpatient (BNVA) | payer OTHER, SELFPAY | PROVIDERS: PCP Physician Assistant; Visit Provider Psychiatry & Neurology Neurology | DX: G25.0 Essential tremor (principal); R26.9 Unspecified abnormalities of gait and mobility | CPT/HCPCS: 99202 ==

== ENCOUNTER 2022-07-12 09:25 | Outpatient (REF) | payer OTHER, SELFPAY ==
[2022-07-12 10:16] LABS: Hematocrit 37.7 % (37.0-47.0); Hemoglobin 12.8 g/dl (12.0-16.0); Mean Corpuscular Hemoglobin 31.8 pg (27.0-33.0); Mean Corpuscular Volume 93.5 fL (80.0-98.0); Mean Platelet Volume 10.7 fL (9.4-12.3); Platelet Count 243 X10*3/uL (160-400); Red Blood Count 4.03 X10*6/uL (4.20-5.50); Red Cell Distribution Width 12.2 % (11.0-16.0); White Blood Count 5.2 X10*3/uL (4.8-10.8)
[2022-07-12 10:50] LABS: Alanine Aminotransferase 26 U/L (0-31); Albumin Level 4.6 g/dL (3.5-5.0); Alkaline Phosphatase 48 U/L (39-117); Anion Gap 14 (12-20); Aspartate Amino Transferase 27 U/L (5-31); Bilirubin Total 0.5 mg/dL (0.0-1.0); Blood Urea Nitrogen 20 mg/dL (9-16); Calcium 9.5 mg/dL (8.4-10.2); Carbon Dioxide 21 mmol/L (22-29); Chloride 108 mmol/L (96-108); Cholesterol 170 mg/dL; Estimated Glomerular Filt Rate 46; Glucose Fasting 98 mg/dL (60-99); HDL Cholesterol 27 mg/dL; LDL Cholesterol Calculated 121 mg/dl; Potassium 4.4 mmol/L (3.3-5.1); Sodium 139 mmol/L (135-145); Total Protein 7.2 g/dL (6.5-8.0); Triglycerides 114 mg/dL
[2022-07-12 10:58] LABS: TSH reflex Free T4 1.56 uIU/mL (0.32-4.0)
== END 2022-07-12 09:26 | disposition home or self-care (01) ==
LOC: HO.LAB 09:25
PROVIDERS: PCP Physician Assistant; Visit Provider Physician Assistant
DX: I10 Essential (primary) hypertension (principal)
CPT/HCPCS: 36415; 80053; 80061; 84443; 85027

== ENCOUNTER 2022-07-24 10:10 | Day surgery (SDC) | payer OTHER, SELFPAY ==
--- NOTE | ~2022-07-24 | FL_ITS ---
EXAMINATION: XR FLUOROSCOPY WITH IMAGES CLINICAL INFORMATION: Stimulator trial, lumbar. Sprint implant. COMPARISON: None. TECHNIQUE: Fluoroscopy performed by Dr. Rafael Joseph. Fluoroscopy time: 0.2 minutes. Cumulative Dose: 2.50 mGy. DAP: 0.681 Gy-cm2. Images: 2. FINDINGS: There is spinal needle or electrode pointing towards the right L4 pedicle. The second spot image shows the needle/catheter directed towards the left L4 lamina and a fine catheter overlying the right L4 transverse process or neural foramen. FL/FL guidance in OR IMPRESSION: Status post fluoroscopy for pain management procedure.
--- NOTE | 2022-07-24 10:27 | MHC.SHP ---
Pre-Procedural Eval Section A Date of Service: 07/24/22 The patient is an INPATIENT: No Changes since office visit: Yes Patient answered all questions The History & Physical has been completed within 30 days and I have reviewed it.: No Section B Chief Complaint: Spondylosis without myelopathy or radiculopathy, Details of Present Illness: as above Relevant Family History (Specify if Yes): No Relevant Social History: None Present Medications: None Medical History: No relevant PMH History of Previous Operations: Relevant previous surgery/procedure and date(s) Allergies: Allergies Allergy/AdvReac Type Severity Reaction Status Date / Time fluoxetine [From PROZAC] Allergy Severe ANNETTE Verified 07/03/22 08:01 cat dander [CATS] Allergy Mild HAYFEVER Verified 07/03/22 08:01 Chocolate Allergy Mild HEADACHES Verified 07/03/22 08:01 dog dander [DOGS] Allergy Mild HAYFEVER Verified 07/03/22 08:01 Environmental Allergy Mild HAYFEVER Uncoded 06/13/22 11:03 Review of Systems Sugical H&P ROS: Negative: Constitution, Cardiovascular, Respiratory, Neurological, Psychiatric, Hem-Onc, Allergic/Immunologic, Gastrointestinal, Genitourinary, Integumentary, Endocrine and Eyes/Ears/Nose/Throat and Yes, Specify: Musculoskeletal (as above) Exam Surgical H&P Exam: Normal: HEENT, Normal: Heart, Normal: Lungs, Normal: Extremities, Normal: Abdomen, Normal: Skin and Normal: Neurological Plan Diagnosis/Plan: Unchanged I have reviewed the history and physical and performed a pertinent physical examination on my patient. No changes have occurred unless specified.
--- NOTE | 2022-07-24 10:40 | W.PM.OPN ---
Operative Note Operative Note Date of Service: 07/24/22 Narrative: After the risks, benefits and alternatives were discussed with the patient and informed consent was obtained, patient was placed in the prone position and padded to foster comfort. Time out was performed delineating correct site and side of the procedure , name and of the patient, patient participated in time out procedure. ?Sterily draped C-arm was brought over the operating field and clear picture of the lumbar spine was demonstrated on the screen bilateral laminas of the L5 VERTEBRAE were chosen as a target of the needle tip insertion . After identifying and marking the intended target, the skin around the planned entry point and the subcutaneous tissues were injected with local anesthetic forming skin wheal.. ?A percutaneous sleeve and stimulating probe lead introduction system were assembled, inserted and advanced through the skin wheal to the? point of interest under C-arm view in tunnel vision fashion, the introducer needle was delivered to a location in proximity to the multifidus muscles. Multiple stimulation parameters were used to deliver stimulation to the? nerve in concert with stimulating at multiple positions around the nerve. Nerve target acquisition was confirmed noting generation of? in the? corresponding to the nerve being stimulated. Various electrical parameter combinations were tested, and the lead location was adjusted? until the patient indicated? overlapping the distribution of the patient?s typical region of pain. The stimulating probe was removed from the introducer and a percutaneous lead was guided through the needle and delivered to a location in similar proximity to the nerve. Final location was verified with electrical stimulation. The introducer needle was removed, and the exposed end of the percutaneous lead was attached to an external stimulator unit. Various electrical parameter combinations were again tested until the patient indicated paresthesia or muscle tension overlapping the distribution of the patient?s typical region of pain. After confirming that lead impedance was in the normal range, the external unit was detached, the needle was removed, and the lead was anchored at the skin. After that the same manipulations were performed on the contralateral side of the patients L5 vertebra. The leads were threaded into the connector block and electrical continuity and desired patient response was confirmed. The connector block was attached to the external stimulator unit. The site was covered with a sterile occlusive dressing and an? image was taken to document final placement. ?Upon completion of the procedure the patient was taken outside the OR where she recovered uneventfully she went home without immediate complications.
[2022-07-24 10:41] VITALS: BMI 28.3
--- NOTE | 2022-07-24 10:41 | PM.OP ---
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
[2022-07-24 10:42] VITALS: BP 113/70; PULSE 99; RESP 18; TEMP 36.1; O2SAT 98
[2022-07-24 11:40] VITALS: BP 112/61; PULSE 53; RESP 20; TEMP 36.1; O2SAT 98
[2022-07-24 11:55] VITALS: BP 116/77; PULSE 61; RESP 18; TEMP 36.1; O2SAT 96
== END 2022-07-24 12:53 | disposition home or self-care (01) ==
PROVIDERS: PCP Physician Assistant; Visit Provider Anesthesiology
PROC: (CPT 64555; principal; 2022-07-24 11:00)
DX: M47.816 Spondylosis without myelopathy or radiculopathy, lumbar region (principal); M47.812 Spondylosis without myelopathy or radiculopathy, cervical region; G62.9 Polyneuropathy, unspecified; M54.50 Low back pain, unspecified; M54.2 Cervicalgia; B20 Human immunodeficiency virus [HIV] disease; J45.909 Unspecified asthma, uncomplicated; G20 Parkinson's disease; R56.9 Unspecified convulsions; I82.402 Acute embolism and thrombosis of unspecified deep veins of left lower extremity; F32.A Depression, unspecified; Z79.01 Long term (current) use of anticoagulants; F10.11 Alcohol abuse, in remission; F14.10 Cocaine abuse, uncomplicated; F11.10 Opioid abuse, uncomplicated; F43.10 Post-traumatic stress disorder, unspecified; F17.210 Nicotine dependence, cigarettes, uncomplicated
CPT/HCPCS: 64555; C1778; J0690

== ENCOUNTER → 2022-08-01 09:01 | Outpatient (BNVA) | payer OTHER, SELFPAY | PROVIDERS: PCP Physician Assistant; Visit Provider Anesthesiology | DX: M47.816 Spondylosis without myelopathy or radiculopathy, lumbar region (principal); M47.812 Spondylosis without myelopathy or radiculopathy, cervical region; G62.9 Polyneuropathy, unspecified; F14.10 Cocaine abuse, uncomplicated | CPT/HCPCS: 99212 ==

== ENCOUNTER → 2022-08-15 08:45 | Outpatient (BNVA) | payer OTHER, SELFPAY | PROVIDERS: PCP Physician Assistant; Visit Provider Anesthesiology | DX: Z48.01 Encounter for change or removal of surgical wound dressing (principal) | CPT/HCPCS: 99211 ==

== ENCOUNTER → 2022-08-21 09:07 | Outpatient (BNVA) | payer OTHER, SELFPAY | PROVIDERS: PCP Physician Assistant; Visit Provider Anesthesiology | DX: Z48.1 Encounter for planned postprocedural wound closure (principal) | CPT/HCPCS: 99211 ==

== ENCOUNTER → 2022-08-28 09:42 | Outpatient (BNVA) | payer OTHER, SELFPAY | PROVIDERS: PCP Physician Assistant; Visit Provider Anesthesiology | DX: Z48.00 Encounter for change or removal of nonsurgical wound dressing (principal) | CPT/HCPCS: 99211 ==

== ENCOUNTER → 2022-09-27 10:08 | Outpatient (BNVA) | payer OTHER, SELFPAY | PROVIDERS: PCP Physician Assistant; Visit Provider Anesthesiology | DX: M47.816 Spondylosis without myelopathy or radiculopathy, lumbar region (principal); M47.812 Spondylosis without myelopathy or radiculopathy, cervical region; G62.9 Polyneuropathy, unspecified; F14.10 Cocaine abuse, uncomplicated | CPT/HCPCS: 99212 ==

== ENCOUNTER → 2022-10-31 13:41 | Outpatient (BNVA) | payer OTHER, SELFPAY | PROVIDERS: PCP Physician Assistant; Referring Provider Physician Assistant; Visit Provider Nurse Practitioner Family | DX: R07.89 Other chest pain (principal); R06.00 Dyspnea, unspecified; F17.210 Nicotine dependence, cigarettes, uncomplicated | CPT/HCPCS: 93005; 99212 ==

== ENCOUNTER → 2022-11-20 10:30 | Outpatient (BNVA) | payer OTHER, SELFPAY | PROVIDERS: PCP Physician Assistant; Visit Provider Nurse Practitioner Family | DX: G47.9 Sleep disorder, unspecified (principal); G25.0 Essential tremor; R26.9 Unspecified abnormalities of gait and mobility; F17.210 Nicotine dependence, cigarettes, uncomplicated | CPT/HCPCS: 99212 ==

== ENCOUNTER 2022-12-12 13:01 | Outpatient (REF) | payer OTHER, SELFPAY ==
--- NOTE | ~2022-12-12 | XR_ITS ---
EXAMINATION: XR THORACIC SPINE CLINICAL INFORMATION: Question compression fracture. COMPARISON: None TECHNIQUE: Frontal, lateral and swimmer's views of the thoracic spine were obtained. FINDINGS: Vertebral body heights and alignment are normal. There is mild disc space narrowing at T8-T9 and T9-T10. The remaining disc spaces are relatively well-maintained. No acute fracture or spondylolisthesis is seen. There is multi-level mild thoracic spondylosis. The posterior elements are intact. The paravertebral soft tissues are unremarkable. XR/XR thoracic spine 3V IMPRESSION: 1. There is mild degenerative disc disease at T8-T9 and T9-T10. 2. There is multi-level mild thoracic spondylosis. 3. No acute fracture or spondylolisthesis is seen.
== END 2022-12-12 13:02 | disposition home or self-care (01) ==
LOC: HO.XRAY 13:01
PROVIDERS: PCP Physician Assistant; Visit Provider Anesthesiology
DX: S22.000A Wedge compression fracture of unspecified thoracic vertebra, initial encounter for closed fracture (principal)
CPT/HCPCS: 72072; 99212

== ENCOUNTER 2022-12-27 07:28 | Outpatient (REF) | payer OTHER, SELFPAY ==
[2022-12-27 08:04] LABS: Hematocrit 39.3 % (37.0-47.0); Hemoglobin 13.5 g/dl (12.0-16.0); Mean Corpuscular HGB Conc 34.4 g/dl (31.0-35.0); Mean Corpuscular Hemoglobin 32.2 pg (27.0-33.0); Mean Corpuscular Volume 93.8 fL (80.0-98.0); Mean Platelet Volume 10.3 fL (9.4-12.3); Platelet Count 252 X10*3/uL (160-400); Red Blood Count 4.19 X10*6/uL (4.20-5.50); Red Cell Distribution Width 12.2 % (11.0-16.0); White Blood Count 6.8 X10*3/uL (4.8-10.8)
[2022-12-27 09:38] LABS: Alanine Aminotransferase 18 U/L (0-31); Albumin Level 4.5 g/dL (3.5-5.0); Alkaline Phosphatase 57 U/L (39-117); Anion Gap 17 (12-20); Aspartate Amino Transferase 22 U/L (5-31); Bilirubin Total 0.4 mg/dL (0.0-1.0); Blood Urea Nitrogen 30 mg/dL (9-16); Calcium 9.3 mg/dL (8.4-10.2); Carbon Dioxide 20 mmol/L (22-29); Chloride 106 mmol/L (96-108); Cholesterol 177 mg/dL; Estimated Glomerular Filt Rate 39; Glucose Fasting 93 mg/dL (60-99); HDL Cholesterol 24 mg/dL; LDL Cholesterol Calculated 121 mg/dl; Potassium 4.9 mmol/L (3.3-5.1); Sodium 138 mmol/L (135-145); Total Protein 7.1 g/dL (6.5-8.0); Triglycerides 163 mg/dL
[2022-12-27 09:39] LABS: Creatinine Urine 57.16 mg/dL; Microalbumin Urine < 5.0 mg/L
[2022-12-27 09:46] LABS: TSH reflex Free T4 2.93 uIU/mL (0.32-4.0)
== END 2022-12-27 07:29 | disposition home or self-care (01) ==
LOC: HO.LAB 07:28
PROVIDERS: PCP Physician Assistant; Visit Provider Physician Assistant
DX: I10 Essential (primary) hypertension (principal)
CPT/HCPCS: 36415; 80053; 80061; 82043; 84443; 85027

== ENCOUNTER 2023-01-11 07:38 | Outpatient (REF) | payer OTHER, SELFPAY ==
--- NOTE | ~2023-01-11 | XR_ITS ---
EXAMINATION: XR RIBS, LEFT WITH PA CHEST CLINICAL INFORMATION: Pleurodynia. COMPARISON: Chest radiograph dated 12/17/2020; rib series dated 07/01/2020. TECHNIQUE: 3 views of the left ribs were obtained, together with a PA view of the chest. FINDINGS: Lungs are clear. No consolidation, pneumothorax, or pleural effusion. The cardiomediastinal silhouette and pulmonary vasculature are normal. Osseous structures are unremarkable. Ribs are intact. No acute fractures are identified. There is an old, healed lateral left third rib fracture. XR/XR ribs LT min 3V w CXR1V IMPRESSION: Unremarkable examination.
== END 2023-01-11 07:39 | disposition home or self-care (01) ==
LOC: HO.XRAY 07:38
PROVIDERS: PCP Physician Assistant; Visit Provider Internal Medicine
DX: R07.81 Pleurodynia (principal)
CPT/HCPCS: 71101

== ENCOUNTER → 2023-01-14 15:54 | Outpatient (BNVA) | payer OTHER, SELFPAY | PROVIDERS: PCP Physician Assistant; Visit Provider Anesthesiology | DX: Z13.89 Encounter for screening for other disorder (principal) ==

== ENCOUNTER 2023-02-20 08:22 | Outpatient (REF) | payer OTHER, SELFPAY ==
--- NOTE | ~2023-02-20 | MM_ITS ---
EXAMINATION: MM SCREENING DIGITAL BREAST TOMOSYNTHESIS, BILATERAL CLINICAL INFORMATION: Screening. Asymptomatic. The lifetime risk of breast cancer based on the Tyrer-Cuzick Model is 4%. COMPARISON: Mammography: 02/14/2022, 09/22/2020, 09/09/2019 TECHNIQUE: Digital breast tomosynthesis is performed in both the craniocaudal and mediolateral oblique views along with computer-aided detection (CAD). Synthesized 2D images are generated from the tomosynthesis. FINDINGS: There are scattered areas of fibroglandular density (ACR BI-RADS breast composition Category b). There are no significant masses, abnormal calcifications, or other abnormalities. Parenchymal pattern is similar to prior exams and there is no developing density or architectural abnormality. There is a small circumscribed nodule again noted central 8:30 left breast. The axilla and skin contours are unremarkable. No significant changes. MM/MM tomosynthesis screening BI IMPRESSION: No mammographic evidence of malignancy. ASSESSMENT: BI-RADS 2: Benign RECOMMENDATION: Routine annual mammography screening. This patient's information was entered into a reminder system with a target due date for their next mammogram.
== END 2023-02-20 08:23 | disposition home or self-care (01) ==
LOC: HO.MAMMO 08:22
PROVIDERS: PCP Physician Assistant; Visit Provider Physician Assistant
DX: Z12.31 Encounter for screening mammogram for malignant neoplasm of breast (principal)
CPT/HCPCS: 77063; 77067

== ENCOUNTER 2023-02-28 09:37 | Outpatient (REF) | payer OTHER, SELFPAY ==
[2023-02-28 11:18] LABS: Folate 5.7 ng/mL (> or = 4.0); Vitamin B12 319 pg/mL (200-900)
== END 2023-02-28 09:38 | disposition home or self-care (01) ==
LOC: HO.LAB 09:37
PROVIDERS: PCP Physician Assistant; Visit Provider Physician Assistant
DX: D51.0 Vitamin B12 deficiency anemia due to intrinsic factor deficiency (principal)
CPT/HCPCS: 36415; 82607; 82746

== ENCOUNTER → 2023-03-20 09:02 | Outpatient (BNVA) | payer OTHER, SELFPAY | PROVIDERS: PCP Physician Assistant; Visit Provider Nurse Practitioner Family | DX: G20 Parkinson's disease (principal); G25.0 Essential tremor; R26.9 Unspecified abnormalities of gait and mobility; G47.9 Sleep disorder, unspecified; F17.210 Nicotine dependence, cigarettes, uncomplicated; Z79.01 Long term (current) use of anticoagulants | CPT/HCPCS: 99212 ==

== ENCOUNTER → 2023-04-01 07:55 | Outpatient (BNVA) | payer OTHER, SELFPAY | PROVIDERS: PCP Physician Assistant; Visit Provider Advanced Practice Midwife ==

== ENCOUNTER 2023-05-14 08:14 | Outpatient (REF) | payer OTHER, SELFPAY ==
[2023-05-14 08:52] LABS: Hematocrit 33.2 % (37.0-47.0); Hemoglobin 10.8 g/dl (12.0-16.0); Mean Corpuscular HGB Conc 32.5 g/dl (31.0-35.0); Mean Corpuscular Hemoglobin 32.8 pg (27.0-33.0); Mean Corpuscular Volume 100.9 fL (80.0-98.0); Mean Platelet Volume 10.5 fL (9.4-12.3); Platelet Count 218 X10*3/uL (160-400); Red Blood Count 3.29 X10*6/uL (4.20-5.50); Red Cell Distribution Width 14.1 % (11.0-16.0); White Blood Count 5.2 X10*3/uL (4.8-10.8)
[2023-05-14 09:50] LABS: Alanine Aminotransferase < 5 U/L (0-31); Albumin Level 4.2 g/dL (3.5-5.0); Alkaline Phosphatase 61 U/L (39-117); Anion Gap 10 (12-20); Aspartate Amino Transferase 14 U/L (5-31); Bilirubin Total 0.3 mg/dL (0.0-1.0); Blood Urea Nitrogen 17 mg/dL (9-16); Calcium 8.9 mg/dL (8.4-10.2); Carbon Dioxide 23 mmol/L (22-29); Chloride 112 mmol/L (96-108); Cholesterol 131 mg/dL; Estimated Glomerular Filt Rate 41; Glucose Fasting 93 mg/dL (60-99); HDL Cholesterol 22 mg/dL; LDL Cholesterol Calculated 84 mg/dl; Potassium 4.4 mmol/L (3.3-5.1); Sodium 141 mmol/L (135-145); Triglycerides 127 mg/dL
[2023-05-14 09:54] LABS: Creatinine Urine 119.99 mg/dL
== END 2023-05-14 08:15 | disposition home or self-care (01) ==
LOC: HO.LAB 08:14
PROVIDERS: PCP Physician Assistant; Visit Provider Physician Assistant
DX: I10 Essential (primary) hypertension (principal)
CPT/HCPCS: 36415; 80053; 80061; 82043; 85027

== ENCOUNTER 2023-05-14 15:13 | Outpatient (REF) | payer OTHER, SELFPAY ==
--- NOTE | ~2023-05-14 | US_ITS ---
EXAMINATION: US VENOUS ULTRASOUND WITH DOPPLER LOWER EXTREMITY, BILATERAL CLINICAL INFORMATION: Acute embolism COMPARISON: Prior study from 06/13/2022 TECHNIQUE: Ultrasound of the deep veins is performed from the hip to the calf with compression sonography and color and pulse Doppler assessment. Spectral analysis with color-flow imaging is performed. FINDINGS: RIGHT: There is normal venous compression and respiratory variation and augmented flow. The visualized common femoral vein, superficial femoral vein, profunda femoral vein, popliteal vein, and the trifurcation region shows no evidence of deep venous thrombosis. There is no significant popliteal fossa cyst. LEFT: Redemonstration of partially occlusive chronic thrombus in the left common femoral, proximal mid and distal femoral veins. The popliteal vein remain patent. There is no significant popliteal fossa cyst. There are shotty lymph nodes in the groins. US/US venous duplex LE IMPRESSION: * Redemonstration of partially occlusive chronic thrombus in the left common femoral, proximal mid and distal femoral veins. * No DVT demonstrated in the right lower extremity.
== END 2023-05-14 15:14 | disposition home or self-care (01) ==
LOC: HO.US 15:13
PROVIDERS: PCP Physician Assistant; Visit Provider Nurse Practitioner Family
DX: I82.402 Acute embolism and thrombosis of unspecified deep veins of left lower extremity (principal)
CPT/HCPCS: 93970

== ENCOUNTER 2023-07-03 08:00 | Outpatient (RCR) | payer OTHER, SELFPAY ==
[2023-05-22 09:52] VITALS: BP 102/60; PULSE 82
--- NOTE | 2023-07-25 11:00 | MHC.PT.DC ---
[facility] [place] Office [place] Office [place] Office [address] Elkin Eric [address] [phone] F: [phone] F: [phone] F: [phone] F: [phone] Physical Therapy Discharge Report Diagnosis: PARKINSONS (KP) Date of Surgery: NA Date of Evaluation: 05/22/23 Date of Discharge: 07/03/23 Treatments to Date: 4 Cancellations to Date: 1 No Shows to Date: 2 Discharge Status: Discharge Summary: Ashly progressed well in therapy and is independent with her home program. DC at this time. Electronically signed by: Yeimy Ratliff PT DPT Please sign and return to therapist. Thank you for your referral.
== END 2023-07-25 11:00 | disposition home or self-care (01) ==
LOC: HO.PT 08:00
PROVIDERS: PCP Physician Assistant; Visit Provider Physician Assistant
DX: R26.9 Unspecified abnormalities of gait and mobility (principal)
CPT/HCPCS: 97110; 97162

== ENCOUNTER 2023-07-03 10:10 | Outpatient (AMB) | payer OTHER, SELFPAY ==
--- NOTE | 2023-07-03 10:12 | A.OFFPC_ITS ---
Vital Signs 07/03/23 10:13 Height 5 ft 2 in Weight 166 lb 6 oz BMI 30.4 BP 138/76 Blood Pressure Location Lt brachial Position Sitting Pulse 79 Pulse Source Pulse Oximeter Pulse Oximetry (%) 98 Oxygen Delivery Method Room Air Intake Visit Reasons: f/u htn Allergies cat dander [CATS] Allergy (Mild, Verified 07/03/23 10:33) HAYFEVER Chocolate Allergy (Mild, Verified 07/03/23 10:33) HEADACHES dog dander [DOGS] Allergy (Mild, Verified 07/03/23 10:33) HAYFEVER Environmental Allergy (Mild, Uncoded 07/03/23 10:23) HAYFEVER Medication List - Last Reconciled 07/03/23 by Sudhir Martin PA-C acetaminophen (Pain Relief (acetaminophen)) 500 mg PO TID PRN [adult pullups As directed] albuterol sulfate 90 mcg/actuation (ProAir HFA) 2 puffs inhalation QID PRN 30 days alendronate (Fosamax) 70 mg PO QWEEK 12 weeks amitriptyline 50 mg (2 x 25 mg) PO BEDTIME apixaban (Eliquis) 5 mg PO BID 90 days azelastine 1 spray intranasal BID 30 days back brace As directed baclofen 20 mg (2 x 10 mg) PO .night time PRN 30 days [bed pads As directed] carbidopa-levodopa 25-100 mg 1 tab PO QID 90 days cetirizine 10 mg PO DAILY 90 days cholecalciferol (vitamin D3) 50 mcg PO DAILY 90 days clonazepam 0.5 mg PO BID diaper,brief,adult,disposable As directed diphenhydramine HCl (Benadryl Allergy) 25 mg PO BID PRN 30 days diphenhydramine HCl (Banophen) 25 mg PO Q8H 30 days disposable gloves As directed epinephrine (EpiPen 2-Kamaljit) 0.3 mg (0.3 mL) IM ONCE PRN 30 days fluoxetine 20 mg PO DAILY 90 days gabapentin 400 mg PO BEDTIME gabapentin 200 mg (2 x 100 mg) PO BEDTIME 90 days incontinence pad, liner, disp As directed lidocaine 5% (Lidoderm) 1 patch topical DAILY 30 days lisinopril 2.5 mg (1/2 x 5 mg) PO DAILY 90 days loperamide 2 mg PO Q8H PRN 7 days loratadine-pseudoephedrine 10-240 mg ER (Claritin-D 24 Hour) 1 tab PO DAILY 90 days magnesium oxide 400 mg PO BEDTIME 30 days miscellaneous medical supply 1 ea miscellaneous DAILY 99 days omeprazole 20 mg PO DAILY primidone 50 mg PO BID 90 days topiramate (Topamax) 100 mg PO Q12H 30 days triamcinolone acetonide 0.5% 1 appl topical DAILY 15 days varenicline 0.5 mg PO; Take 0.5 mg qd x 3 days, then 0.5 mg b.i.d. x4 days 7 days varenicline 1 mg PO BID 28 days zolpidem 5 mg PO BEDTIME 30 days Tobacco use date assessed: 05/14/23 Dental Screening Dental Screen Date: 07/03/23 Did you have a dental visit in the last 12 months?: No Did you have a dental problem in the last 6 months where you did not have access to dental care?: No Was dental information given to patient?: Yes HPI f/u htn HPI Details Patient is a 62-year-old female here today for follow-up visit ? Patient has a past medical history significant for polysubstance abuse, spinal stenosis, anxiety, depression, pernicous anemia, DVT ( left leg), parkinsons.? Tobacco dependency: Patient is unfortunately started smoking again and would like to restart Chantix in near future as it has been effective for her in the past .. Allergic rhinitis:? 10 used to be suffering with allergies.? Continues on Benadr yl, nasal sprays and decongestants.? She reports the changes seasons are difficult. She reports she was on allergy injections in the past which were helping her with rhinitis and sinusitis. She would like to be referred back to ENT specialist for injection therapy. .. Sz disorder: Continues on topmax 50 in the am and 100mg at Pm. .. Lumbar Spinal stenosis: Is seeing pain speacialist here at [place] and has started on SPRINT Spinal stimulator which has offered her excellent pain relief in her lumbar spine..? Has followed up with a neurosurgeon for her neck pain though was not a surgical candidate.? Currently a recovering addict and does not use any pain medication besides Tylenol at this time. .. Parkinsons: See a neurologist? continues on carbidopa levodopa.? Also followed for a seizure disorder and denies any recent seizure activity. Recently increased her gabapentin.? She reports her balance has gotten worse, does report recent fall.? She is interested in seeing a physical therapist for balance training. .. Heart? murmur/ Atypical chest pain : IS followed by [facility] ( Dr. Alvares ), Cardiac stress test normal, ECHO showing low/ normal EF. .. h/o polysubtance abuse ( alcohol, crack cocain) : Has been sober since 2013.? She is in a fellowship (AA/ NA) . Major depressive disorder/ generalized anxiety disorder:? She is followed by a new psychiatrist now who manages her mental health medications. She feels her depression is fairly well managed at this time.?? She reports he continues to have trouble with sleep even with use of trazodone, Benadryl and gabapentin at night.? She is interested in restarting amitriptyline before bed for sleep. ? [facility] Medical History (Updated 07/04/23 @ 07:22 by Sudhir Martin PA-C) Alcohol abuse Anxiety Arthritis Asthma Back pain Cocaine abuse COVID-19 Depression DVT (deep venous thrombosis) Former cigarette smoker GERD (gastroesophageal reflux disease) Heart murmur Hepatitis History of abnormal cervical Pap smear History of celiac disease History of cocaine abuse History of frequent headaches History of heroin abuse HIV (human immunodeficiency virus infection) Hydradenitis Lumbago with sciatica, left side On anticoagulant therapy Panic attacks Parkinson disease Peripheral polyneuropathy PTSD (post-traumatic stress disorder) Recovering alcoholic Seizure Spinal stenosis, cervical region Spondylosis of cervical spine Spondylosis of lumbar spine Surgical History H/O excision of ganglion cyst History of carpal tunnel surgery of left wrist History of hemorrhoidectomy Hx of colonoscopy Hx of esophagogastroduodenoscopy Hx of nasal septoplasty Family History Mother No problems noted. Social History Housing: Apartment Are you a primary pharmacy customer care specialist to a significant other at home: No Do you presently have visiting nurse or other home services: Yes Alcohol intake: former Year quit: 2004 Patient Tobacco Use Status: Current everyday Tobacco user Tobacco use type: Cigarette Cigarette Packs Per Day: 5 Cigarettes Per Day: 40 Years Smoked: 45 e-Cigarette/Vaping Use: Currently Using Second Hand Smoke Exposure: No Substance Use Type: Heroin service: No Current occupational status: disabled Cognitive needs: Yes (back brace) Hearing needs: No Vision needs: Yes Questionnaire PHQ-9 Over the last 2 weeks, how often have you been bothered by any of the following problems? 1. Little interest or pleasure in doing things: not at all 2. Feeling down, depressed, or hopeless: not at all 3. Trouble falling or staying asleep, or sleeping too much: nearly every day 4. Feeling tired or having little energy: nearly every day 5. Poor appetite or overeating: not at all 6. Feeling bad about yourself - or that you are a failure or have let yourself or your family down: not at all 7. Trouble concentrating on things, such as reading the newspaper or watching television: not at all 8. Moving or speaking so slowly that other people could have noticed. Or the opp osite - being so fidgety or restless that you have been moving around a lot more than usual: not at all 9. Thoughts that you would be better off or of hurting yourself in some way: not at all Total score: 6 Depression Screening Interpretation: Positive 14539 - PHQ-9 Billing: Yes Source: Developed by Drs. Boris Garcia, Qian Bullard, Hector Herzog and colleagues, with an educational miguel a from [employer]. Thrive Questionnaire Date Thrive assessed: 02/28/23 I am a: Patient What is your living situation today?: I have a steady place to live Within the past 12 months, did the food you bought not last and you didn't have the money to get more?: Never true Within the past 12 months, did you worry whether your food would run out before you got money to buy more?: Never true Do you have trouble paying for medicines?: No Do you have trouble getting transportation to medical appointments?: No Do you have trouble paying your heating and electricity bill?: No Do you have trouble taking care of your child, family member or friend?: No Do you have trouble with day-to-day activities such as bathing, preparing meals, shopping, managing finances, etc.?: No Are you currently unemployed and looking for a job?: No Are you interested in more education?: No Currently or been in a relationship where the following occur: no concerns reported AUDIT C Alcohol Use Questionnaire (AUDIT-C) 1. How often do you have a drink containing alcohol?: Never 3. How often do you have six or more drinks on one occasion?: Never Total Score: 0 LUISA-7 AMB Questionnaire LUISA-7 Date LUISA - 7 assessed: 02/28/23 Feeling nervous, anxious, or on edge: 0 = Not at all Not being able to stop or control worryin = Not at all Worrying too much about different things: 0 = Not at all Trouble relaxin = Not at all Being so restless that it is hard to sit still: 0 = Not at all Becoming easily annoyed or irritable: 0 = Not at all Feeling afraid as if something awful might happen: 0 = Not at all Total LUISA-7 score (0-4 normal; 5-9 mild; 10-14 moderate; 15-21 severe): 0 Source: Developed by Drs. Boris Garcia, Qian Bullard, Hector Herzog and colleagues, with an educational miguel a from [employer]. Review of Systems Const Denies headache(s) Eyes Denies loss of vision ENT Denies vertigo, Denies dizziness, Denies headache(s) and Denies sore throat Card Denies chest pain, Denies leg edema and Denies lightheadedness Resp Denies cough, Denies hemoptysis and Denies wheezing GI Denies abdominal pain, Denies melena, Denies constipation, Denies diarrhea and Denies vomiting Denies urinary frequency, Denies dysuria and Denies urinary urgency Musc Denies arthralgias, Denies joint swelling, Denies numbness and Denies tingling Neuro Denies Abnormal speech present, Denies behavioral changes, Denies vertigo, Denies dizziness, Denies headache(s), Denies loss of vision, Denies memory loss, Denies numbness and Denies tingling Psych Denies anxiety, Denies behavioral changes, Denies depression, Denies memory loss and Denies panic attacks Carlos/Lymph Denies easy bleeding and Denies easy bruising Aller/Immun Denies wheezing Physical exam (Primary Care) Vital Signs: Last Vital Signs Pulse 79 07/03/23 10:13 BP 138/76 07/03/23 10:13 Pulse Ox 98 07/03/23 10:13 Oxygen Delivery Method Room Air 07/03/23 10:13 BMI result Body Mass Index 30.4 BMI Assessment/Plan discussion: High Tobacco/Smoking Status: Tobacco use Status Tobacco use date assessed 05/14/23 07/03/23 10:16 Patient Tobacco Use Status Current everyday Tobacco 07/03/23 10:25 Tobacco use type Cigarette 07/03/23 10:16 e-Cigarette/Vaping Use Currently Using 07/03/23 10:16 Are you ready to quit: Yes Tobacco cessation counseling provided: Yes Relapse Prevention: discussed the importance of a supportive environment, discussed negative mood or depression after quitting, weight gain after smoking is common and discussed dietary, exercise and/or lifestyle changes Number of minutes spent counselin CPT code: 45955 - 4-10 Minutes PHQ-9: PHQ-9 Score PHQ-9: Total score 6 07/03/23 10:38 Depression Screening Interpretation: Positive Thrive Assessment: Date of Thrive Assessment Date Thrive assessed 02/28/23 07/03/23 10:16 Currently or been in a relationship where the following occur: no concerns reported Const Other: OBESE General: healthy appearing, no acute distress, alert and awake Nutritional Appearance: well nourished Orientation/consciousness: oriented to person, oriented to place and oriented to time HENMT Ears: TM's normal bilaterally General nose exam: Normal nasal mucous membranes and turbinates present Eyes Conjunctivae: conjunctivae normal Sclerae: sclerae normal Pupils: Equal, round and reactive pupils present Neck Neck: Yes no lymphadenopathy and Yes no JVD Thyroid: Thyroid normal Carotids: no bruits Resp Effort & Inspection: normal respiratory effort and not tachypneic Auscultation: no crackles, no rales, no rhonchi and no wheezes Cardio Rate: regular rate Rhythm: regular rhythm Heart sounds: no murmurs and normal S1 and S2 GI Palpation (GI): Soft to palpation, nontender, no hepatomegaly and no splenomegaly Auscultation: normal bowel sounds Skin General skin exam: no rashes or lesions noted and dry skin Neuro General: oriented to person, oriented to place and oriented to time Cranial nerves: Yes Equal, round and reactive pupils present Speech: No Abnormal speech present Gait exam (Neuro): Normal gait present Motor exam (neuro): no tremor noted Extrem Right upper extremity: full ROM Left upper extremity: full ROM Right lower extremity: full ROM; no edema Left lower extremity: full ROM; no edema Psych Mental Status: mental status grossly normal Speech and movement: Normal speech and movement present Affect: normal affect Attitude: cooperative Thought process: Normal thought process present Assessment and Plan Assessment & Plan (1) HTN (hypertension): Code(s): I10 - Essential (primary) hypertension Qualifiers: Hypertension type: primary hypertension Qualified Code(s): I10 - Essential (primary) hypertension Plan: Patient's blood pressure acceptable today in office. Will continue her current dose of antihypertensive medication with goal blood pressure to be below 140/90 (2) Parkinson disease: Code(s): G20 - Parkinson's disease Plan: Patient continues to follow a neurologist. Continues on carbidopa levodopa. She continues to have a tremor and feels it is getting worse. She has experienced many falls over the last several months and attributes this to her Parkinson's tremor. Has been doing physical therapy for her lower extremities in needs. (3) DVT (deep venous thrombosis): Comment: left groin- leg - On Eliquis Code(s): I82.409 - Acute embolism and thrombosis of unspecified deep veins of unspecified lower extremity Qualifiers: Affected thrombotic vein of extremity: other lower extremity vein Chronicity: unspecified DVT location: lower extremity Laterality: left Qualified Code(s): I82.492 - Acute embolism and thrombosis of other specified deep vein of left lower extremity Plan: Continues on Eliquis without any overt signs of bleeding. (4) Cervical spine pain: Code(s): M54.2 - Cervicalgia Plan: Patient reports he continues to have neck pain and weakness of her neck. She is asking for a neck brace to help stabilize her neck. (5) Tobacco dependence: Code(s): F17.200 - Nicotine dependence, unspecified, uncomplicated Plan: Patient does understand she needs to quit smoking and is willing to restart Chantix to help her quit smoking. Chantix has been effective for her in the past. (6) MDD (major depressive disorder), recurrent episode, moderate: Code(s): F33.1 - Major depressive disorder, recurrent, moderate Plan: Patient's PHQ-9 score positive for mild to moderate depression which has been an existing condition for her. She speaks with a mental health therapy and psych iatrist who manages her mental health medication Orders: Orders Vitamin B12 and Folate 07/03/23 D51.0 - Vitamin B12 deficiency anemia due to intrinsic factor deficiency, E53.8 - Deficiency of other specified B group vitamins Comprehensive [place]. Panel Fast 07/03/23 I10 - Essential (primary) hypertension Complete Blood Count no Diff 07/03/23 I10 - Essential (primary) hypertension Referrals Ear/Nose/Throat Referral Z91.09 - Other allergy status, other than to drugs and biological substances Medications: New miscellaneous medical supply 1 ea miscellaneous DAILY 99 days 1 ea 0RF M54.2 - Cervicalgia walker (Ultra-Light Rollator misc) As directed 1 ea 0RF G20 - Parkinson's disease, R26.89 - Other abnormalities of gait and mobility Refilled varenicline 0.5 mg PO; Take 0.5 mg qd x 3 days, then 0.5 mg b.i.d. x4 days 7 days 11 tabs 0RF F17.200 - Nicotine dependence, unspecified, uncomplicated primidone 50 mg PO BID 90 days 180 tabs 3RF R56.9 - Unspecified convulsions Coding Level of Care Code Est Pt Level 4 (24603) Diagnoses HTN (hypertension) I10 Hypertension type: primary hypertension Parkinson disease G20 DVT (deep venous thrombosis) I82.492 Affected thrombotic vein of extremity: other lower extremity vein Chronicity: unspecified DVT location: lower extremity Laterality: left Cervical spine pain M54.2 Tobacco dependence F17.200 MDD (major depressive disorder), recurrent episode, moderate F33.1 Additional Codes Vital Signs *Quality* - CPT code: 59832 - 4-10 Minutes ([id number])
[2023-07-03 10:13] VITALS: BP 138/76; PULSE 79; O2SAT 98; BMI 30.4
== END 2023-07-03 10:56 | disposition home or self-care (01) ==
PROVIDERS: PCP Physician Assistant; Visit Provider Physician Assistant
DX: I10 Essential (primary) hypertension (principal); G20 Parkinson's disease; F17.210 Nicotine dependence, cigarettes, uncomplicated; I82.492 Acute embolism and thrombosis of other specified deep vein of left lower extremity; F33.1 Major depressive disorder, recurrent, moderate; M54.2 Cervicalgia
CPT/HCPCS: 99214; 99406

== ENCOUNTER 2023-07-23 12:20 | Outpatient (AMB) | payer OTHER, SELFPAY ==
[2023-07-23 12:22] VITALS: BP 138/90; PULSE 84; O2SAT 99; BMI 31.1
--- NOTE | 2023-07-23 12:22 | A.OFFVIS_ITS ---
Intake Vital Signs 07/23/23 12:22 Height 5 ft 2 in Weight 170 lb 2 oz BMI 31.1 BP 138/90 H Blood Pressure Location Lt brachial Position Sitting Pulse 84 Pulse Source Pulse Oximeter Pulse Oximetry (%) 99 Oxygen Delivery Method Room Air Intake Visit Reasons: 4m f/u Parkinson -lvm Intake Note: Pt presents as a f/u Parkinsons. Pt states she's had several falls recently. Pt states shes shaking alot more and shes been drinking decaf. Survey Research Teacher Required: No Allergies bee pollen Allergy (Severe, Verified 07/23/23 12:28) Anaphylaxis cat dander [CATS] Allergy (Mild, Verified 07/23/23 12:28) HAYFEVER Chocolate Allergy (Mild, Verified 07/23/23 12:28) HEADACHES dog dander [DOGS] Allergy (Mild, Verified 07/23/23 12:28) HAYFEVER Environmental Allergy (Mild, Uncoded 07/23/23 12:28) HAYFEVER Medication List - Last Reconciled 07/23/23 by Zunilda Enriquez MD acetaminophen (Pain Relief (acetaminophen)) 500 mg PO BID [adult pullups As directed] albuterol sulfate 90 mcg/actuation (ProAir HFA) 2 puffs inhalation QID PRN 30 days alendronate (Fosamax) 70 mg PO QWEEK 12 weeks amitriptyline 50 mg (2 x 25 mg) PO BEDTIME apixaban (Eliquis) 5 mg PO BID 90 days azelastine 1 spray intranasal BID 30 days back brace As directed baclofen 20 mg (2 x 10 mg) PO .night time PRN 30 days [bed pads As directed] carbidopa-levodopa 25-100 mg 1 tab PO QID 90 days cetirizine 10 mg PO DAILY 90 days cholecalciferol (vitamin D3) 50 mcg PO DAILY 90 days clonazepam 0.5 mg PO BID diaper,brief,adult,disposable As directed diphenhydramine HCl (Banophen) 25 mg PO Q8H PRN disposable gloves As directed epinephrine (EpiPen 2-Kamaljit) 0.3 mg (0.3 mL) IM ONCE PRN 30 days fluoxetine 40 mg PO DAILY gabapentin 400 mg PO BEDTIME gabapentin 200 mg (2 x 100 mg) PO BEDTIME 90 days incontinence pad, liner, disp As directed lidocaine 5% (Lidoderm) 1 patch topical DAILY lisinopril 2.5 mg (1/2 x 5 mg) PO DAILY 90 days loperamide 2 mg PO Q8H PRN 7 days loratadine-pseudoephedrine 10-240 mg ER (Claritin-D 24 Hour) 1 tab PO DAILY 90 days magnesium oxide 400 mg PO BEDTIME 30 days miscellaneous medical supply 1 ea miscellaneous DAILY 99 days miscellaneous medical supply 1 ea miscellaneous DAILY 99 days omeprazole 20 mg PO DAILY primidone 50 mg PO BID 90 days topiramate (Topamax) 100 mg PO Q12H 30 days triamcinolone acetonide 0.5% 1 appl topical DAILY 15 days varenicline 0.5 mg PO; Take 0.5 mg qd x 3 days, then 0.5 mg b.i.d. x4 days 7 days varenicline 1 mg PO BID 28 days walker (Ultra-Light Rollator misc) As directed zolpidem 5 mg PO BEDTIME 30 days HPI HPI Comments History of Present Illness Details 62 y/o female patient presents for follow up of head tremor, and gait disorder.Her head and hand tremors ar e not responding to medications and is worse. Pt reports that her primary care advised patient to increase carbidopa/levodopa 25/100 mg QID. She started Sinemet QID on 11/09 and takes it at 9 am, 1 pm, 4 pm and 7:30 pm. Denies light headedness or hallucinations. Pt feels her head tremor has not been improved, and jaw tremor is still same. 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 Pt reports sleeping better with ambien , benadryl and amitriptyline. Her sleep schedule is 10-11 pm to 8:30 am but wakes up frequently. She takes 15-20 mg of melatonin, gabapentin 600 mg qhs baclofen 10 mg clonazepam 0.5 mg bid amitriptyline 25 mg and ambien 5 mg. She smokes a pack of cigarettes pack every 3-4 days. She switched to vaping. 5 % nicotine. Pt has hx of anxiety and panic attack, sees psychiatrist every three months. She walks her dog daily, uses cane to walk. [facility] Medical History Alcohol abuse Anxiety Arthritis Asthma Back pain Cocaine abuse COVID-19 Depression DVT (deep venous thrombosis) Former cigarette smoker GERD (gastroesophageal reflux disease) Heart murmur Hepatitis History of abnormal cervical Pap smear History of celiac disease History of cocaine abuse History of frequent headaches History of heroin abuse HIV (human immunodeficiency virus infection) Hydradenitis Lumbago with sciatica, left side On anticoagulant therapy Panic attacks Parkinson disease Peripheral polyneuropathy PTSD (post-traumatic stress disorder) Recovering alcoholic Seizure Spinal stenosis, cervical region Spondylosis of cervical spine Spondylosis of lumbar spine Surgical History H/O excision of ganglion cyst History of carpal tunnel surgery of left wrist History of hemorrhoidectomy Hx of colonoscopy Hx of esophagogastroduodenoscopy Hx of nasal septoplasty Family History Mother No problems noted. Social History Housing: Apartment Are you a primary nurse care manager to a significant other at home: No Do you presently have visiting nurse or other home services: Yes Alcohol intake: former Year quit: 2003 Patient Tobacco Use Status: Current everyday Tobacco user Tobacco use type: Cigarette Cigarette Packs Per Day: 5 Cigarettes Per Day: 40 Years Smoked: 45 e-Cigarette/Vaping Use: Currently Using Second Hand Smoke Exposure: No Substance Use Type: Heroin service: No Current occupational status: disabled Cognitive needs: Yes (back brace) Hearing needs: No Vision needs: Yes Physical Exam Vital Signs: Last Vital Signs Pulse 84 07/23/23 12:22 BP 138/90 H 07/23/23 12:22 Pulse Ox 99 07/23/23 12:22 Oxygen Delivery Method Room Air 07/23/23 12:22 BMI result Body Mass Index 31.1 Const General: cooperative, healthy appearing and comfortable Nutritional Appearance: average body habitus Orientation/consciousness: patient oriented x3 Limitations: no limitations HEENT Other: yes yes head tremors - mild Jaw tremors, voice and tongue tremors Head: Yes normal to inspection and Yes normocephalic Eyes Pupils: Equal, round and reactive pupils present Neck Other: restricted range of motion Neuro Other: mild decreased facial expression and blink Voice- normal, tremors No rest tremors No cog wheel rigidity General: patient oriented x3, tone normal, moves all extremities and no focal motor deficits Cranial nerves: Yes CN's II-XII intact bilaterally, Yes Facial sensation intact/muscles of mastication intact, Yes Equal, round and reactive pupils present, Yes Bilaterally intact EOM present, Yes Nystagmus not present, Yes Normal facial strength present and Yes Midline tongue present Cognition (Neuro): normal cognition Gait exam (Neuro): Other gait observations present (normal base and stride , cannot tandem) Motor exam (neuro): 5/5 motor strength present throughout Coordination: [id number] test normal Psych Appearance: grossly normal Speech and movement: Normal speech and movement present Assessment & Plan Assessment & Plan (1) Benign head tremor: Comment: Likely related to cervical spondylosis and dystonia Code(s): G25.0 - Essential tremor (2) Gait disorder: Comment: multifactorial, arthritis, h/o alcoholism,? neuropathy Code(s): R26.9 - Unspecified abnormalities of gait and mobility (3) Tobacco dependence: Code(s): F17.200 - Nicotine dependence, unspecified, uncomplicated (4) Sleep disorder: Code(s): G47.9 - Sleep disorder, unspecified Plan decrease carbidopa/levodopa 25/100 tID. Increase primidone 100mg bid for better tremors control Continue to take gabapentin to 600 mg q HS for sleep. Continue to take melatonin 15-20 mg qHS. Magnesium 400 mg qHS to prevent muscle spasm. Sleep hygiene education provided. Advised patient to limit smoking in the evening. Medications: Changed From acetaminophen (Pain Relief (acetaminophen)) 500 mg PO TID PRN 90 tabs 6RF for fever To acetaminophen (Pain Relief (acetaminophen)) 500 mg PO BID for fever From diphenhydramine HCl (Banophen) 25 mg PO Q8H 30 days 90 caps 3RF To diphenhydramine HCl (Banophen) 25 mg PO Q8H PRN From lidocaine 5% (Lidoderm) leave on most painful area for up to 12 hrs 1 patch topical DAILY 30 days 30 ea 3RF M47.816 - Spondylosis without myelopathy or radiculopathy, lumbar region To lidocaine 5% (Lidoderm) leave on most painful area for up to 12 hrs 1 patch topical DAILY M47.816 - Spondylosis without myelopathy or radiculopathy, lumbar region From primidone 50 mg PO BID 90 days 180 tabs 3RF R56.9 - Unspecified convulsions To primidone 100 mg (2 x 50 mg) PO BID 90 days 720 tabs 3RF R56.9 - Unspecified convulsions From carbidopa-levodopa 25-100 mg 1 tab PO QID 90 days 360 tabs 0RF G20 - Parkinson's disease To carbidopa-levodopa 25-100 mg 1 tab PO TID 30 days 90 tabs 0RF G20 - Park inson's disease Coding Level of Care Code Est Pt Level 4 (37374) Diagnoses Benign head tremor G25.0 Gait disorder R26.9 Tobacco dependence F17.200 Sleep disorder G47.9
== END 2023-07-23 13:01 | disposition home or self-care (01) ==
PROVIDERS: Visit Provider Psychiatry & Neurology Neurology
DX: G25.0 Essential tremor (principal); R26.9 Unspecified abnormalities of gait and mobility; F17.200 Nicotine dependence, unspecified, uncomplicated; G47.9 Sleep disorder, unspecified
CPT/HCPCS: 99214

== ENCOUNTER → 2023-07-23 12:20 | Outpatient (BNVA) | payer OTHER, SELFPAY | PROVIDERS: Visit Provider Psychiatry & Neurology Neurology | DX: G25.0 Essential tremor (principal); R26.9 Unspecified abnormalities of gait and mobility; G47.9 Sleep disorder, unspecified; F17.210 Nicotine dependence, cigarettes, uncomplicated; Z79.899 Other long term (current) drug therapy | CPT/HCPCS: 99212 ==

== ENCOUNTER 2023-09-18 10:36 | Outpatient (REF) | payer OTHER, SELFPAY ==
[2023-09-18 11:53] LABS: Hematocrit 34.3 % (37.0-47.0); Hemoglobin 10.9 g/dl (12.0-16.0); Mean Corpuscular HGB Conc 31.8 g/dl (31.0-35.0); Mean Corpuscular Hemoglobin 33.5 pg (27.0-33.0); Mean Corpuscular Volume 105.5 fL (80.0-98.0); Mean Platelet Volume 9.6 fL (9.4-12.3); Platelet Count 245 X10*3/uL (160-400); Red Blood Count 3.25 X10*6/uL (4.20-5.50); Red Cell Distribution Width 14.6 % (11.0-16.0); White Blood Count 6.2 X10*3/uL (4.8-10.8)
[2023-09-18 12:23] LABS: Alanine Aminotransferase < 5 U/L (0-31); Albumin Level 4.2 g/dL (3.5-5.0); Alkaline Phosphatase 103 U/L (39-117); Anion Gap 13 (12-20); Aspartate Amino Transferase 14 U/L (5-31); Bilirubin Total 0.2 mg/dL (0.0-1.0); Blood Urea Nitrogen 26 mg/dL (9-16); Calcium 9.3 mg/dL (8.4-10.2); Carbon Dioxide 24 mmol/L (22-29); Chloride 110 mmol/L (96-108); Estimated Glomerular Filt Rate 49; Glucose Fasting 86 mg/dL (60-99); Potassium 5.8 mmol/L (3.3-5.1); Sodium 141 mmol/L (135-145); Total Protein 7.2 g/dL (6.5-8.0)
[2023-09-18 12:55] LABS: Folate 2.7 ng/mL (> or = 4.0); Vitamin B12 242 pg/mL (200-900)
== END 2023-09-18 10:37 | disposition home or self-care (01) ==
LOC: HO.LAB 10:36
PROVIDERS: PCP Physician Assistant; Visit Provider Physician Assistant
DX: I10 Essential (primary) hypertension (principal); D51.0 Vitamin B12 deficiency anemia due to intrinsic factor deficiency
CPT/HCPCS: 36415; 80053; 82607; 82746; 85027

== ENCOUNTER 2023-10-07 09:31 | Outpatient (AMB) | payer OTHER, SELFPAY ==
[2023-10-07 09:48] VITALS: BP 118/70; PULSE 86; O2SAT 98; BMI 35.0
--- NOTE | 2023-10-07 09:48 | MHC.PC.OV ---
Vital Signs 10/07/23 09:48 Height 5 ft 2 in Weight 191 lb 6 oz BMI 35.0 BP 118/70 Blood Pressure Location Lt brachial Position Sitting Pulse 86 Pulse Source Pulse Oximeter Pulse Oximetry (%) 98 Oxygen Delivery Method Room Air Intake Visit Reasons: Annual Exam Security System Administrator Required: No Accompanied by: Mother Allergies bee pollen Allergy (Severe, Verified 10/07/23 10:21) Anaphylaxis cat dander [CATS] Allergy (Mild, Verified 10/07/23 10:21) HAYFEVER Chocolate Allergy (Mild, Verified 10/07/23 10:21) HEADACHES dog dander [DOGS] Allergy (Mild, Verified 10/07/23 10:21) HAYFEVER Environmental Allergy (Mild, Uncoded 07/23/23 12:28) HAYFEVER Medication List - Last Reconciled 10/07/23 by Sudhir Martin PA-C acetaminophen (Pain Relief (acetaminophen)) 500 mg PO BID [adult pullups As directed] albuterol sulfate 90 mcg/actuation 2 puffs inhalation QID 90 days alendronate (Fosamax) 70 mg PO QWEEK 12 weeks amitriptyline 50 mg (2 x 25 mg) PO BEDTIME apixaban (Eliquis) 5 mg PO BID 90 days azelastine 1 spray intranasal BID 90 days back brace As directed baclofen 20 mg (2 x 10 mg) PO .night time PRN 90 days [bed pads As directed] carbidopa-levodopa 25-100 mg 1 tab PO TID 90 days cetirizine 10 mg PO DAILY 90 days cholecalciferol (vitamin D3) 50 mcg PO DAILY 90 days clonazepam 0.5 mg PO BID diaper,brief,adult,disposable As directed diphenhydramine HCl (Banophen) 25 mg PO Q8H PRN disposable gloves As directed epinephrine (EpiPen 2-Kamaljit) 0.3 mg (0.3 mL) IM ONCE PRN 30 days fluoxetine 40 mg PO DAILY folic acid 1 mg PO DAILY 90 days gabapentin 200 mg (2 x 100 mg) PO BEDTIME 90 days gabapentin 400 mg PO BEDTIME incontinence pad, liner, disp As directed lidocaine 5% (Lidoderm) 1 patch topical DAILY lisinopril 2.5 mg (1/2 x 5 mg) PO DAILY 90 days loperamide 2 mg PO Q8H PRN 7 days loratadine-pseudoephedrine 10-240 mg ER (Claritin-D 24 Hour) 1 tab PO DAILY 90 days magnesium oxide 400 mg PO BEDTIME 30 days miscellaneous medical supply 1 ea miscellaneous DAILY 99 days miscellaneous medical supply 1 ea miscellaneous DAILY 99 days omeprazole 20 mg PO DAILY 90 days primidone 100 mg (2 x 50 mg) PO BID 90 days topiramate (Topamax) 100 mg PO Q12H 90 days triamcinolone acetonide 0.5% 1 appl topical DAILY 15 days varenicline 0.5 mg PO; Take 0.5 mg qd x 3 days, then 0.5 mg b.i.d. x4 days 7 days varenicline 1 mg PO BID 28 days vitamin B complex 1 tab PO DAILY 90 days walker (Ultra-Light Rollator misc) As directed zolpidem 5 mg PO BEDTIME 30 days Tobacco use date assessed: 05/14/23 Dental Screening Dental Screen Date: 10/07/23 Did you have a dental visit in the last 12 months?: Yes Did you have a dental problem in the last 6 months where you did not have access to dental care?: No Was dental information given to patient?: Patient has dentist HPI Annual Exam HPI Details Patient is a 63 -year-old female here today for a routine annual physical. ? Patient has a past medical history significant for polysubstance abuse, spinal stenosis, anxiety, depression, pernicous anemia, DVT ( left leg), parkinsons.? Tobacco dependency: Patient continues to smoke. She is now off of Chantix as it was ineffective for her. Today in office does pulmonary rhonchi on physical exam. No fevers or chills. Denies any productive cough PLAN: Advised to get chest x-ray. Will supply patient with a prednisone taper .. Obese: report major dietary indiscretion. Has gained weight since last office visit. She is interested in higher dose of Topamax as she has been told that this may help her with weight loss. .. Allergic rhinitis:? Continues to suffer allergy symptoms. Continues on Benadryl, nasal sprays and decongestants.? She reports the changes seasons are difficult. She reports she was on allergy injections in the past which were helping her with rhinitis and sinusitis. She would like to be referred back to ENT specialist for injection therapy. .. Sz disorder: Continues on topmax , denies any recent episodes of seizure activity. .. Lumbar Spinal stenosis: Is seeing pain speacialist here at [place] and has started on SPRINT Spinal stimulator which has offered her excellent pain relief in her lumbar spine..? Has followed up with a neurosurgeon for her neck pain though was not a surgical candidate.? Currently a recovering addict and does not use any pain medication besides Tylenol at this time. .. Parkinsons: Sees a neurologist? continues on carbidopa levodopa.? Also followed for a seizure disorder and denies any recent seizure activity. Recently increased her gabapentin.? She reports her balance has gotten worse, does report recent fall.? She is interested in seeing a physical therapist for balance training. .. Heart? murmur/ Atypical chest pain : IS followed by Plant And Maintenance Technician ( Dr. Alvares ), Cardiac stress test normal, ECHO showing low/ normal EF. .. h/o polysubtance abuse ( alcohol, crack cocain) : Has been sober since 2013.? She is in a fellowship (AA/ NA) . Major depressive disorder/ generalized anxiety disorder:? She is followed by a new psychiatrist now who manages her mental health medications. She feels her depression is fairly well managed at this time.?? She reports he continues to have trouble with sleep even with use of trazodone, Benadryl and gabapentin at night.? She is interested in restarting amitriptyline before bed for sleep. ? Colon cancer screening: Done in [address] Dr. Quinones, needed repeat 5 years Mammogram: Done in February 2023 BI-RADS 1 FUNDS TRANSFER CLERK: does see FUNDS TRANSFER CLERK here in [place] Vaccine: Up-to-date with tetanus vaccine, pneumonia vaccine, COVID vaccine, received flu vaccine today [facility] Medical History COVID-19 History of abnormal cervical Pap smear Spinal stenosis, cervical region Peripheral polyneuropathy Spondylosis of cervical spine Spondylosis of lumbar spine Cocaine abuse Alcohol abuse Hepatitis HIV (human immunodeficiency virus infection) Heart murmur History of cocaine abuse History of heroin abuse Hydradenitis Former cigarette smoker Recovering alcoholic GERD (gastroesophageal reflux disease) Lumbago with sciatica, left side Arthritis Back pain On anticoagulant therapy DVT (deep venous thrombosis) History of celiac disease Anxiety Panic attacks Depression PTSD (post-traumatic stress disorder) Parkinson disease History of frequent headaches Seizure Asthma Surgical History H/O excision of ganglion cyst Hx of esophagogastroduodenoscopy History of carpal tunnel surgery of left wrist Hx of nasal septoplasty History of hemorrhoidectomy Hx of colonoscopy Family History Mother No problems noted. Social History (Updated 10/07/23 @ 10:28 by Sudhir Martin PA-C) Housing: Apartment Are you a primary intensive care specialist to a significant other at home: No Do you presently have visiting nurse or other home services: Yes Alcohol intake: former Year quit: 2003 Patient Tobacco Use Status: Current everyday Tobacco user Tobacco use type: Cigarette Cigarette Packs Per Day: 5 Cigarettes Per Day: 40 Years Smoked: 45 e-Cigarette/Vaping Use: Currently Using Second Hand Smoke Exposure: No service: No Current occupational status: disabled Cognitive needs: Yes (back brace) Hearing needs: No Vision needs: Yes Questionnaire Thrive Questionnaire Date Thrive assessed: 02/28/23 LUISA-7 AMB Questionnaire LUISA-7 Date LUISA - 7 assessed: 02/28/23 Source: Developed by Drs. Boris Garcia, Qian Bullard, Hector Herzog and colleagues, with an educational miguel a from [employer]. Review of Systems Const Denies body aches, Denies chills, Denies excessive sweating, Denies fatigue, Denies fever(s) and Denies headache(s) Eyes Denies blurry vision ENT Denies dysphagia, Denies vertigo, Denies dizziness, Denies headache(s), Denies hearing loss and Denies tinnitus Card Denies chest pain, Denies chest pain with activity, Denies syncope, Denies irregular heart rhythm and Denies dyspnea Resp Denies chest congestion, Denies cough, Denies hemoptysis, Denies dyspnea and Denies wheezing GI Denies abdominal pain, Denies melena, Denies hematochezia, Denies coffee ground emesis, Denies dysphagia, Denies diarrhea, Denies nausea and Denies vomiting Denies urinary frequency, Denies dysuria, Denies urinary hesitancy and Denies urinary urgency Musc Denies arthralgias, Denies limited range of motion, Denies muscle cramps and Denies muscle weakness Skin/Breast Denies rash and Denies skin ulcer Neuro Denies Abnormal speech present, Denies confusion, Denies vertigo, Denies dizziness, Denies syncope, Denies headache(s), Denies memory loss and Denies seizure-like activity Psych Denies anxiety, Denies confusion, Denies depression, Denies memory loss, Denies panic attacks and Denies paranoia Endo Denies excessive sweating, Denies fatigue, Denies flushing, Denies polydipsia and Denies polyuria Aller/Immun Denies wheezing Physical exam (Primary Care) Vital Signs: Last Vital Signs Pulse 86 10/07/23 09:48 BP 118/70 10/07/23 09:48 Pulse Ox 98 10/07/23 09:48 Oxygen Delivery Method Room Air 10/07/23 09:48 BMI result Body Mass Index 35.0 BMI Assessment/Plan discussion: High Tobacco/Smoking Status: Tobacco use Status Tobacco use date assessed 05/14/23 10/07/23 09:51 Patient Tobacco Use Status Current everyday Tobacco 10/07/23 10:28 Tobacco use type Cigarette 10/07/23 10:28 e-Cigarette/Vaping Use Currently Using 10/07/23 10:28 Are you ready to quit: No Tobacco cessation counseling provided: Yes Items discussed: Nicotine replacement Relapse Prevention: discussed the importance of a supportive environment, discussed negative mood or depression after quitting, weight gain after smoking is common and discussed dietary, exercise and/or lifestyle changes Number of minutes spent counselin CPT code: 77321 - 4-10 Minutes Thrive Assessment: Date of Thrive Assessment Date Thrive assessed 02/28/23 10/07/23 09:51 Const Other: Obese General: cooperative, comfortable, no acute distress, alert and awake; No confusion Orientation/consciousness: oriented to person, oriented to place, patient oriented x3 and No confusion HENMT Head: Yes normocephalic Ears: external ears normal and TM's normal bilaterally Face and sinus: No sinus tenderness Mouth: Normal oral and palatal mucosa present and tongue normal Teeth and gingiva: dentition normal and gingiva normal Throat: Yes posterior oropharynx normal, Yes tonsils normal and Yes uvula midline Eyes Conjunctivae: conjunctivae normal Sclerae: sclerae normal Pupils: Equal, round and reactive pupils present EOM: EOMs intact bilaterally Direct Ophthalmoscopy: No no photophobia Neck Neck: Yes no lymphadenopathy, No tender and Yes no JVD Thyroid: Thyroid normal Carotids: no bruits Chest Chest palpation & inspection: no tenderness Resp Effort & Inspection: normal respiratory effort, no audible wheezes, Actively coughing, not labored and no stridor Auscultation: no crackles, rales, rhonchi and no wheezes Cardio Jugular venous distension: no JVD Rate: regular rate, not bradycardic and not tachycardic Rhythm: regular rhythm Bruits: no carotid bruits Peripheral pulses: Peripheral pulses 2+ throughout GI Inspection: Yes normal to inspection, No abdominal wall ecchymosis and No visible herniation Palpation (GI): Soft to palpation, nontender, no guarding, not rigid and No hepatosplenomegaly present Auscultation: normoactive bowel sounds General: Yes no CVA tenderness Back/Spine/Pelvis Back: no CVA tenderness and No back tenderness Cervical Spine: cervical ROM normal Thoracic/Lumbar Spine: thoracic and lumbar spine normal to inspection, straight leg raise negative bilaterally, No thoraco-lumbar ROM limited and No lumbar spinal tenderness Skin Lesions: no lesions Rashes: no rashes Wounds: no wounds Neuro General: oriented to person, oriented to place, patient oriented x3, CN's II-XI intact bilaterally and No confusion Cranial nerves: Yes Equal, round and reactive pupils present and Yes Normal accommodation reflex present Cognition (Neuro): normal cognition Speech: No Abnormal speech present Gait exam (Neuro): Normal gait present Motor exam (neuro): 5/5 motor strength present throughout Extrem Right upper extremity: full ROM; no cyanosis Left upper extremity: full ROM; no cyanosis Right lower extremity: no edema Left lower extremity: no edema Psych Appearance: grossly normal Mental Status: mental status grossly normal Affect: normal affect Attitude: cooperative Thought process: Normal thought process present Assessment and Plan Assessment & Plan (1) Annual physical exam: Code(s): Z00.00 - Encounter for general adult medical examination without abnormal findings (2) HTN (hypertension): Code(s): I10 - Essential (primary) hypertension Qualifiers: Hypertension type: primary hypertension Qualified Code(s): I10 - Essential (primary) hypertension Plan: Patient's blood pressure acceptable today in office. Will continue her current dose of antihypertensive medication with goal blood pressure to be below 140/90 (3) Parkinson disease: Code(s): G20 - Parkinson's disease Qualifiers: Dyskinesia presence: with dyskinesia Fluctuating manifestations: without fluctuating manifestations Qualified Code(s): G20.B1 - Parkinson's disease with dyskinesia, without mention of fluctuations Plan: Patient continues to follow a neurologist. Continues on carbidopa levodopa. She continues to have a tremor and feels it is getting worse. She has experienced many falls over the last several months and attributes this to her Parkinson's tremor. Has been doing physical therapy for her lower extremities in needs. (4) DVT (deep venous thrombosis): Comment: left groin- leg - On Eliquis Code(s): I82.409 - Acute embolism and thrombosis of unspecified deep veins of unspecified lower extremity Qualifiers: Affected thrombotic vein of extremity: other lower extremity vein Chronicity: unspecified DVT location: lower extremity Laterality: left Qualified Code(s): I82.492 - Acute embolism and thrombosis of other specified deep vein of left lower extremity Plan: Continues on Eliquis without any overt signs of bleeding. (5) Tobacco dependence: Code(s): F17.200 - Nicotine dependence, unspecified, uncomplicated Plan: Patient does understand she needs to quit smoking she has tried Chantix though was not effective for her. (6) Obese: Code(s): E66.9 - Obesity, unspecified Qualifiers: Body mass index: BMI 35.0-35.9 Obesity classification: adult class 2 (BMI 35 - 39.9) Obesity type: due to excess calories Serious obesity comorbidity presence: with serious comorbidity Qualified Code(s): E66.01 - Morbid (severe) obesity due to excess calories; Z68.35 - Body mass index [BMI] 35.0-35.9, adult Plan: Has noted weight gain since last office visit. She does report some dietary indiscretion. Will increase her Topamax to 200 b.i.d. to help her with weight loss. (7) COPD exacerbation: Code(s): J44.1 - Chronic obstructive pulmonary disease with (acute) exacerbation Plan: Physical exam noting pulmonary rhonchi today in office. She has been having a cough over the last several weeks. She does understand she needs to quit smoking. Will send for x-ray to evaluate for pulmonary infiltrate. ? COPD exacerbation. Will treat with prednisone taper and mucolytic. Orders: Orders XR chest 2V 10/07/23 J44.1 - Chronic obstructive pulmonary disease with (acute) exacerbation Complete Blood Count no Diff 10/07/23 D51.0 - Vitamin B12 deficiency anemia due to intrinsic factor deficiency Vitamin B12 and Folate 10/07/23 D51.0 - Vitamin B12 deficiency anemia due to intrinsic factor deficiency, E53.8 - Deficiency of other specified B group vitamins Basic Metabolic Panel 10/07/23 E87.5 - Hyperkalemia Medications: New topiramate (Topamax) 200 mg PO BID 30 days 60 tabs 3RF F41.1 - Generalized anxiety disorder baclofen 20 mg PO BEDTIME 90 days 90 tabs 2RF M79.18 - Myalgia, other site prednisone Take 3 tablets x3 days, 2 tablets x3 days, 1 tablet x3 days 10 mg PO DIRECTED 9 days 18 tabs 0RF J44.1 - Chronic obstructive pulmonary disease with (acute) exacerbation guaifenesin ER (Mucinex) 600 mg PO Q12H 10 days 20 tabs 0RF J44.1 - Chronic obstructive pulmonary disease with (acute) exacerbation fluticasone propion-salmeterol 115-21 mcg/actuation 2 puffs inhalation BID 30 days 12 grams 3RF J44.1 - Chronic obstructive pulmonary disease with (acute) exacerbation Changed From magnesium oxide 400 mg PO BEDTIME 30 days 30 caps 4RF To magnesium oxide 400 mg PO BEDTIME 90 days 90 caps 2RF Refilled amitriptyline 50 mg (2 x 25 mg) PO BEDTIME 90 tabs 1RF G47.9 - Sleep disorder, unspecified omeprazole 20 mg PO DAILY 90 days 90 caps 2RF R10.13 - Epigastric pain lisinopril 2.5 mg (1/2 x 5 mg) PO DAILY 90 days 45 tabs 3RF I10 - Essential (primary) hypertension apixaban (Eliquis) 5 mg PO BID 90 days 180 tabs 1RF I82.492 - Acute embolism and thrombosis of other specified deep vein of left lower extremity Discontinued varenicline Discontinued Reason: Doctor's Order 0.5 mg PO; Take 0.5 mg qd x 3 days, then 0.5 mg b.i.d. x4 days 7 days 11 tabs 0RF F17.200 - Nicotine dependence, unspecified, uncomplicated baclofen Discontinued Reason: Doctor's Order 20 mg (2 x 10 mg) PO .night time 90 days PRN 90 tabs 2RF pain (scale score 7-10) M17.12 - Unilateral primary osteoarthritis, left knee varenicline Discontinued Reason: Doctor's Order 1 mg PO BID 28 days 56 tabs 3RF F17.200 - Nicotine dependence, unspecified, uncomplicated topiramate (Topamax) Discontinued Reason: Doctor's Order 100 mg PO Q12H 90 days 180 tabs 2RF G40.909 - Epilepsy, unspecified, not intractable, without status epilepticus Coding Level of Care Code Est Pt Prev Care 40-64y(64771) Diagnoses Annual physical exam Z00.00 Primary hypertension I10 Hypertension type: primary hypertension Parkinson's disease with dyskinesia without fluctuating manifestations G20.B1 Dyskinesia presence: with dyskinesia Fluctuating manifestations: without fluctuating manifestations Deep vein thrombosis (DVT) of other vein of left lower extremity, unspecified chronicity I82.492 Affected thrombotic vein of extremity: other lower extremity vein Chronicity: unspecified DVT location: lower extremity Laterality: left Tobacco dependence F17.200 Class 2 severe obesity due to excess calories with serious comorbidity and body mass index (BMI) of 35.0 to 35.9 in adult E66.01; Z68.35 Body mass index: BMI 35.0-35.9 Obesity classification: adult class 2 (BMI 35 - 39.9) Obesity type: due to excess calories Serious obesity comorbidity presence: with serious comorbidity COPD exacerbation J44.1 Additional Codes Vital Signs *Quality* - CPT code: 93769 - 4-10 Minutes ([id number])
== END 2023-10-07 11:22 | disposition home or self-care (01) ==
PROVIDERS: PCP Physician Assistant; Visit Provider Physician Assistant
DX: Z00.00 Encounter for general adult medical examination without abnormal findings (principal); I82.492 Acute embolism and thrombosis of other specified deep vein of left lower extremity; G20.B1 Parkinson's disease with dyskinesia, without mention of fluctuations; J44.1 Chronic obstructive pulmonary disease with (acute) exacerbation
CPT/HCPCS: 99396

== ENCOUNTER 2023-10-09 10:54 | Outpatient (REF) | payer OTHER, SELFPAY ==
--- NOTE | ~2023-10-09 | XR_ITS ---
EXAMINATION: XR CHEST CLINICAL INFORMATION: Chronic obstructive pulmonary disease COMPARISON: Left rib radiograph from 01/11/2023 TECHNIQUE: 2 views of the chest were obtained. FINDINGS: Bibasilar radiopacities may reflect atelectasis versus evolving infectious/inflammatory etiology, left greater than right. No pneumothorax. Trachea is midline. Cardiac mediastinal silhouette is not enlarged. No large pleural effusion. Degenerative changes of the thoracolumbar spine. Soft tissues are unremarkable. XR/XR chest 2V IMPRESSION: Bibasilar radiopacities may reflect atelectasis versus evolving infectious/inflammatory etiology, left greater than right.
== END 2023-10-09 10:55 | disposition home or self-care (01) ==
LOC: HO.XRAY 10:54
PROVIDERS: PCP Physician Assistant; Visit Provider Physician Assistant
DX: J44.1 Chronic obstructive pulmonary disease with (acute) exacerbation (principal)
CPT/HCPCS: 71046

== ENCOUNTER 2023-10-19 14:51 | Emergency (ER) | payer OTHER, SELFPAY ==
--- NOTE | ~2023-10-19 | CT_ITS ---
EXAMINATION: CT HEAD WITHOUT CONTRAST, CT CERVICAL SPINE WITHOUT CONTRAST CLINICAL INFORMATION: Trauma. COMPARISON: Portions of a head CT 07/04/20 TECHNIQUE: Multidetector CT examination of the head is performed without contrast. Multidetector CT of the cervical spine without contrast. Multiplanar postprocessing This CT examination was performed using dose optimization techniques as appropriate, variously including the following: *Automated exposure control *Adjustment of mA and/or kV according to patient size (this includes techniques or standardized protocols for targeted exams where dose is matched to indication/reason for exam; i.e. extremities or head) *Use of iterative reconstruction technique DLP: 961 mGy-cm FINDINGS: Head CT: There is no evidence of a recent intracranial hemorrhage or extra-axial collection. The midline structures are nondisplaced. The ventricles, cisterns, and sulci are within normal limits. There is no evidence of an intra-axial mass. There are no suspicious focal areas of abnormal brain attenuation. The castanon-white interface is within normal limits. There is no evidence of acute territorial infarct. Extensive paranasal sinus disease greater on right and left No fracture demonstrated Cervical CT: No acute fracture or subluxation. No focal lesion or loss of volume. There are relatively mild degenerative changes. No suspicious abnormality in the visualized apex of the chest. The right internal jugular vein is distended which can be a normal variant CT/CT head/brain wo IV con IMPRESSION: 1. There is no evidence of a recent intracranial hemorrhage. 2. No acute infarct. 3. No acute fracture or subluxation of the cervical spine Paranasal sinus disease
--- NOTE | ~2023-10-19 | CT_ITS ---
EXAMINATION: CT HEAD WITHOUT CONTRAST, CT CERVICAL SPINE WITHOUT CONTRAST CLINICAL INFORMATION: Trauma. COMPARISON: Portions of a head CT 07/04/20 TECHNIQUE: Multidetector CT examination of the head is performed without contrast. Multidetector CT of the cervical spine without contrast. Multiplanar postprocessing This CT examination was performed using dose optimization techniques as appropriate, variously including the following: *Automated exposure control *Adjustment of mA and/or kV according to patient size (this includes techniques or standardized protocols for targeted exams where dose is matched to indication/reason for exam; i.e. extremities or head) *Use of iterative reconstruction technique DLP: 961 mGy-cm FINDINGS: Head CT: There is no evidence of a recent intracranial hemorrhage or extra-axial collection. The midline structures are nondisplaced. The ventricles, cisterns, and sulci are within normal limits. There is no evidence of an intra-axial mass. There are no suspicious focal areas of abnormal brain attenuation. The castanon-white interface is within normal limits. There is no evidence of acute territorial infarct. Extensive paranasal sinus disease greater on right and left No fracture demonstrated Cervical CT: No acute fracture or subluxation. No focal lesion or loss of volume. There are relatively mild degenerative changes. No suspicious abnormality in the visualized apex of the chest. The right internal jugular vein is distended which can be a normal variant CT/CT cervical spine wo IV con IMPRESSION: 1. There is no evidence of a recent intracranial hemorrhage. 2. No acute infarct. 3. No acute fracture or subluxation of the cervical spine Paranasal sinus disease
[2023-10-19 15:04] VITALS: BP 138/71; BP 164/80; PULSE 77; PULSE 87; RESP 18; TEMP 36.9; O2SAT 97; O2SAT 98; BMI 37.0
--- NOTE | 2023-10-19 16:38 | PC.NURSE ---
pt alert, oriented. coming from mothers house s/p mechanical fall. pos HS, pos thinners (eliquis.) PA aware. no dizziness, no sob, no chest pain. no pain at all. resting in bed. c-collar intact
--- NOTE | 2023-10-19 16:53 | ED.GENADULT ---
HPI - General Adult General Chief complaint: Fall Stated complaint: FELL AND HIT HEAD Time Seen by Provider: 10/19/23 16:29 Source: patient, RN notes reviewed and old records reviewed Mode of arrival: EMS Limitations: no limitations History of Present Illness HPI narrative: 63-year-old female with past medical history significant for COPD, Parkinson's disease, anxiety, hypertension, pernicious anemia, DVT on Eliquis, seizure disorder presents for evaluation after a fall. Patient reports that she was 4 steps off the ground at her mother's house. She states that she misjudged where she was putting her feet and fell backwards She struck the back of her head on the ground below. She denies losing consciousness She does complain of neck pain Denies any injuries Patient denied any prodrome including chest pain, shortness of breath, lightheadedness or dizziness prior to falling Denies any shortness of breath, chest pain currently No other complaints or concerns at this time Patient does states that she is due to have lab work on Saturday and is wondering if she can have this done while in the ER Related Data Home Medications Medication Instructions Recorded Confirmed clonazepam 1 mg tablet 0.5 mg PO BID 10/31/22 10/07/23 acetaminophen 500 mg tablet (Pain 500 mg PO BID for fever 07/23/23 10/07/23 Relief (acetaminophen)) diphenhydramine HCl 25 mg capsule 25 mg PO Q8H PRN 07/23/23 10/07/23 (Banophen) fluoxetine 40 mg capsule 40 mg PO DAILY 07/23/23 10/07/23 lidocaine 5 % topical patch 1 patch topical DAILY 07/23/23 10/07/23 (Lidoderm) Previous Rx's Medication Instructions Recorded back brace #1 ea 01/03/22 miscellaneous medical supply 1 ea miscellaneous DAILY 99 days 08/21/22 #50 ea zolpidem 5 mg tablet 5 mg PO BEDTIME 30 days #30 tabs 03/28/23 disposable gloves #1,000 ea 04/02/23 incontinence pad, liner, disp #200 ea 04/02/23 bed pads #120 ea 04/12/23 adult pullups #120 ea 04/25/23 loratadine-pseudoephedrine ER 10 1 tab PO DAILY 90 days #90 tabs 04/30/23 mg-240 mg tablet,extended [id number] (Claritin-D 24 Hour) diaper,brief,adult,disposable #120 ea 05/20/23 epinephrine 0.3 mg/0.3 mL 0.3 mg (0.3 mL) IM ONCE PRN 05/29/23 injection, auto-injector (EpiPen anaphylaxis 30 days #2 ea 2-Kamaljit) gabapentin 100 mg capsule 200 mg (2 x 100 mg) PO BEDTIME 90 06/24/23 days #180 caps miscellaneous medical supply 1 ea miscellaneous DAILY 99 days 07/03/23 #1 ea peyman (Ultra-Light Rollator misc) #1 ea 07/03/23 cetirizine 10 mg tablet 10 mg PO DAILY 90 days #90 tabs 07/16/23 primidone 50 mg tablet 100 mg (2 x 50 mg) PO BID 90 days 07/23/23 #720 tabs gabapentin 400 mg capsule 400 mg PO BEDTIME #90 caps 08/19/23 alendronate 70 mg tablet (Fosamax) 70 mg PO QWEEK 12 weeks #12 tabs 09/12/23 albuterol sulfate 90 mcg/actuation 2 puff inhalation QID Wheezing 90 09/19/23 aerosol inhaler days #3 inhalers azelastine 137 mcg (0.1 %) nasal 1 spray intranasal BID 90 days #3 09/19/23 spray aerosol ea carbidopa 25 mg-levodopa 100 mg 1 tab PO TID 90 days #270 tabs 09/19/23 tablet folic acid 1 mg tablet 1 mg PO DAILY 90 days #90 tabs 09/19/23 triamcinolone acetonide 0.5 % 1 appl topical DAILY 15 days #15 09/27/23 topical cream grams cholecalciferol (vitamin D3) 50 50 mcg PO DAILY 90 days #90 caps 10/01/23 mcg (2,000 unit) capsule vitamin B complex 1 tab PO DAILY 90 days #90 tabs 10/03/23 amitriptyline 25 mg tablet 50 mg (2 x 25 mg) PO BEDTIME #90 10/07/23 tabs apixaban 5 mg tablet (Eliquis) 5 mg PO BID 90 days #180 tabs 10/07/23 baclofen 20 mg tablet 20 mg PO BEDTIME 90 days #90 tabs 10/07/23 fluticasone propionate 115 2 puff inhalation BID 30 days #12 10/07/23 mcg-salmeterol 21 mcg/actuation grams HFA inhaler guaifenesin 600 mg tablet, 600 mg PO Q12H 10 days #20 tabs 10/07/23 extended release 12 hr (Mucinex) lisinopril 5 mg tablet 2.5 mg (1/2 x 5 mg) PO DAILY 90 10/07/23 days #45 tabs magnesium oxide 400 mg PO BEDTIME 90 days #90 caps 10/07/23 omeprazole 20 mg capsule,delayed 20 mg PO DAILY 90 days #90 caps 10/07/23 release prednisone 10 mg tablet 10 mg PO DIRECTED 9 days #18 10/07/23 tabs topiramate 200 mg tablet (Topamax) 200 mg PO BID 30 days #60 tabs 10/07/23 azithromycin 250 mg tablet See Rx Instructions PO .COMPLEX #6 10/17/23 tabs loperamide 2 mg capsule 2 mg PO Q8H PRN loose stool 7 days 10/19/23 #21 caps Allergies Allergy/AdvReac Type Severity Reaction Status Date / Time bee pollen Allergy Severe Anaphylaxis Verified 10/07/23 10:21 cat dander [CATS] Allergy Mild HAYFEVER Verified 10/07/23 10:21 Chocolate Allergy Mild HEADACHES Verified 10/07/23 10:21 dog dander [DOGS] Allergy Mild HAYFEVER Verified 10/07/23 10:21 Environmental Allergy Mild HAYFEVER Uncoded 07/23/23 12:28 Review of Systems Constitutional: Constitutional: Denies chills, Denies fever(s) and Reports headache(s) Eyes: Eyes: Denies blurry vision ENT: Reports headache(s), Reports neck pain and Denies sore throat Cardiovascular: Cardiovascular: Denies chest pain, Denies syncope, Denies rapid heart rate and Denies dyspnea Respiratory: Respiratory: Denies cough and Denies dyspnea Gastrointestinal: Gastrointestinal: Denies abdominal pain, Denies nausea and Denies vomiting Genitourinary: Genitourinary: Denies difficulty voiding Musculoskeletal: Musculoskeletal: Denies back pain and Reports neck pain Integumentary/Breasts: Skin/Breast: Denies rash Neurologic: Denies syncope and Reports headache(s) PMFSH Past Medical History Medical History COVID-19 History of abnormal cervical Pap smear Spinal stenosis, cervical region Peripheral polyneuropathy Spondylosis of cervical spine Spondylosis of lumbar spine Cocaine abuse Alcohol abuse Hepatitis HIV (human immunodeficiency virus infection) Heart murmur History of cocaine abuse History of heroin abuse Hydradenitis Former cigarette smoker Recovering alcoholic GERD (gastroesophageal reflux disease) Lumbago with sciatica, left side Arthritis Back pain On anticoagulant therapy DVT (deep venous thrombosis) History of celiac disease Anxiety Panic attacks Depression PTSD (post-traumatic stress disorder) Parkinson disease History of frequent headaches Seizure Asthma Surgical History H/O excision of ganglion cyst Hx of esophagogastroduodenoscopy History of carpal tunnel surgery of left wrist Hx of nasal septoplasty History of hemorrhoidectomy Hx of colonoscopy Family History Family History Mother No problems noted. Social History Social History (Updated 10/07/23 @ 10:28 by Sudhir Martin PA-C) Housing: Apartment Are you a primary child care giver to a significant other at home: No Do you presently have visiting nurse or other home services: Yes Alcohol intake: former Year quit: 2003 Comment: was seen at [facility]-called for note Patient Tobacco Use Status: Current everyday Tobacco user Tobacco use type: Cigarette Cigarette Packs Per Day: 5 Cigarettes Per Day: 40 Years Smoked: 45 Smoked in Last 30 Days: Yes e-Cigarette/Vaping Use: Currently Using Second Hand Smoke Exposure: No Use of substances other than those prescribed or required for medical reasons: No Advance Directives: No Advance Directives Information Provided: No service: No Current occupational status: disabled Cognitive needs: Yes (back brace) Hearing needs: No Vision needs: Yes Physical Exam ED Vital Signs: Vital Signs - 24 hr 10/19/23 15:04 10/19/23 17:00 Temperature 98.4 F Pulse Rate 77 72 Respiratory Rate 18 19 Blood Pressure 138/71 129/61 Pulse Oximetry 98 96 Oxygen Delivery Method Room Air Room Air BMI result Body Mass Index 37.0 Const General: healthy appearing, comfortable, no acute distress, alert and awake Nutritional Appearance: well nourished Orientation/consciousness: patient oriented x3 HENMT Other: Small abrasion with cutaneous hematoma to the occipital scalp. No bleeding, no deep lacerations Eyes Eyelids: Yes eyelids normal Conjunctivae: conjunctivae normal Sclerae: sclerae normal Corneas: corneas normal Pupils: Equal, round and reactive pupils present EOM: EOMs intact bilaterally Neck Other: Patient is in a hard C-collar Resp Effort & Inspection: normal respiratory effort, able to speak in complete sentences and not labored Cardio Rate: regular rate Rhythm: regular rhythm GI Inspection: No distended Palpation (GI): Soft to palpation, not firm, nontender, no guarding and not rigid Skin General skin exam: elasticity normal Neuro General: patient oriented x3 Cranial nerves: Yes Equal, round and reactive pupils present and Yes Bilaterally intact EOM present Cognition (Neuro): normal cognition Extrem Other: Moving all extremities well without any obvious deformities Medical Decision Making Medical Decision Making MDM Narrative: 63-year-old female presents for evaluation after a fall. She denies any prodrome or loss of conscious. Currently she only complains of neck pain and headache. She is on Eliquis for history of DVT. Will get a CT scan of cervical spine and brain. The patient has CBC, BMP, B12 and folate ordered for Saturday, she is requesting that is be drawn in the ER. Her abuse will be ordered Differential Diagnosis Differential Diagnoses: The differential diagnosis associated with the presentation includes Mechanical fall Contusion Hematoma Intracranial hemorrhage Calvarial fracture Cervical strain Cervical fracture Lab Data [facility] Lab Attestation statement: I reviewed the patient's lab results. No leukocytosis, mild anemia. No significant electrolyte abnormalities. Patient's potassium is just above normal at 5.3, BUN is elevated 22 with normal creatinine 1.19. Patient was encouraged to hydrate orally 10/19/23 17:07 10/19/23 17:07 Labs: Lab Results 10/19/23 Range/Units 17:07 WBC 8.7 (4.8-10.8) X10*3/uL RBC 3.39 L (4.20-5.50) X10*6/uL Hgb 11.4 L (12.0-16.0) g/dl Hct 34.3 L (37.0-47.0) % MCV 101.2 H (80.0-98.0) fL MCH 33.6 H (27.0-33.0) pg MCHC 33.2 (31.0-35.0) g/dl RDW 13.2 (11.0-16.0) % Plt Count 244 (160-400) X10*3/uL MPV 9.3 L (9.4-12.3) fL Immature Gran % (Auto) 0.9 H (0.0-0.4) % Neut % (Auto) 61.6 (45-73) % Lymph % (Auto) 20.8 (20-40) % Dundy % (Auto) 13.2 H (2-11) % Eos % (Auto) 2.9 (0-4) % Baso % (Auto) 0.6 (0-2) % Lymph # (Auto) 1.8 (1.2-4.9) X10*3/uL Dundy # (Auto) 1.2 (0.1-1.2) X10*3/uL Eos # (Auto) 0.3 (0.0-0.4) X10*3/uL Baso # (Auto) 0.1 (0.0-0.2) X10*3/uL Abs Immat Gran (auto) 0.08 H (0.00-0.03) X10*3/uL Absolute Neuts (auto) 5.4 (2.0-8.3) x10*3/uL Absolute Nucleated RBC 0.000 (0.0-0.012) X10*3/uL Nucleated RBC % (auto) 0.0 (0.0-0.2) /100WBC Sodium 137 (135-145) mmol/L Potassium 5.3 H (3.3-5.1) mmol/L Chloride 108 (96-108) mmol/L Carbon Dioxide 22 (22-29) mmol/L Anion Gap 12 (12-20) BUN 22 H (9-16) mg/dL Creatinine 1.19 (0.5-1.4) mg/dL Estim Creat Clear Calc 51.0 Estimated GFR 46 Random Glucose 90 (60-115) mg/dL Calcium 9.0 (8.4-10.2) mg/dL Total Bilirubin 0.2 (0.0-1.0) mg/dL AST 13 (5-31) U/L ALT < 5 (0-31) U/L Alkaline Phosphatase 88 (39-117) U/L Total Protein 7.5 (6.5-8.0) g/dL Albumin 4.3 (3.5-5.0) g/dL Lipase 20 (8-78) U/L Vitamin B12 325 (200-900) pg/mL Folate > 20.0 (> or = 4.0) ng/mL Independent Interpretation I performed an independent interpretation of an: CT Scan (No obvious to cranial hemorrhage) Radiology Impression Discussion of test interpretation with radiology: I have reviewed the radiologist's reading. (No intracranial hemorrhage, mass effect or midline shift. No cervical spine fracture) Discharge Plan Discharge Clinical Impression: Hematoma Patient Disposition: Home, Self-Care Instructions: Hematoma (ED) Additional Instructions: Your CT scan did not show any traumatic injuries Follow-up with your primary doctor Return for new or worsening symptoms You may use Tylenol for pain Prescriptions: No Action (DME) back brace Misc See Rx Instructions .Route Qty: 1 0RF Rx Instructions: As directed miscellaneous medical supply Misc 1 ea miscellaneous DAILY 99 Days Qty: 50 0RF zolpidem 5 mg tablet 5 mg PO BEDTIME 30 Days Qty: 30 1RF (DME) disposable gloves Misc See Rx Instructions .Route Qty: 1000 3RF Rx Instructions: As directed (DME) incontinence pad, liner, disp Pad See Rx Instructions .Route Qty: 200 1RF Rx Instructions: As directed (DME) bed pads See Rx Instructions .Route .MEDSUPPLY Qty: 120 11RF Rx Instructions: As directed (DME) adult pullups medium See Rx Instructions .Route .MEDSUPPLY Qty: 120 11RF Rx Instructions: As directed Claritin-D 24 Hour 10-240 mg tablet extended release 24 hr 1 tab PO DAILY 90 Days Qty: 90 1RF (DME) diaper,brief,adult,disposable Misc See Rx Instructions .Route Qty: 120 0RF Rx Instructions: As directed epinephrine [EpiPen 2-Kamaljit] 0.3 mg/0.3 mL auto-injector 0.3 mg IM ONCE PRN (Reason: anaphylaxis) 30 Days Qty: 2 0RF gabapentin 100 mg capsule 200 mg PO BEDTIME 90 Days Qty: 180 1RF cetirizine 10 mg tablet 10 mg PO DAILY 90 Days Qty: 90 1RF gabapentin 400 mg capsule 400 mg PO BEDTIME Qty: 90 3RF alendronate [Fosamax] 70 mg tablet 70 mg PO QWEEK 84 Days Qty: 12 1RF folic acid 1 mg tablet 1 mg PO DAILY 90 Days Qty: 90 1RF albuterol sulfate 90 mcg/actuation HFA aerosol inhaler 2 puff INHALATION QID 90 Days Qty: 3 2RF azelastine 137 mcg (0.1 %) aerosol,spray 1 spray intranasal BID 90 Days Qty: 3 3RF Rx Instructions: administer into each nostril carbidopa-levodopa 25-100 mg tablet 1 tab PO TID 90 Days Qty: 270 2RF triamcinolone acetonide 0.5 % cream 1 appl topical DAILY 15 Days Qty: 15 2RF cholecalciferol (vitamin D3) 50 mcg (2,000 unit) capsule 50 mcg PO DAILY 90 Days Qty: 90 3RF vitamin B complex Tablet 1 tab PO DAILY 90 Days Qty: 90 1RF azithromycin 250 mg tablet See Rx Instructions PO .COMPLEX Qty: 6 0RF Rx Instructions: For 250 mg dose pack: take 500 mg today (day 1), then 250 mg for 4 days (days 2-5) PO loperamide 2 mg capsule 2 mg PO Q8H PRN (Reason: loose stool) 7 Days Qty: 21 3RF clonazepam 1 mg tablet 0.5 mg PO BID miscellaneous medical supply Misc 1 ea miscellaneous DAILY 99 Days Qty: 1 0RF (DME) Ultra-Light Rollator Misc See Rx Instructions .Route Qty: 1 0RF Rx Instructions: As directed topiramate [Topamax] 200 mg tablet 200 mg PO BID 30 Days Qty: 60 3RF amitriptyline 25 mg tablet 50 mg PO BEDTIME Qty: 90 1RF Eliquis 5 mg tablet 5 mg PO BID 90 Days Qty: 180 1RF baclofen 20 mg tablet 20 mg PO BEDTIME 90 Days Qty: 90 2RF omeprazole 20 mg capsule,delayed release(DR/EC) 20 mg PO DAILY 90 Days Qty: 90 2RF lisinopril 5 mg tablet 2.5 mg PO DAILY 90 Days Qty: 45 3RF magnesium oxide 400 mg magnesium capsule 400 mg PO BEDTIME 90 Days Qty: 90 2RF prednisone 10 mg tablet 10 mg PO DIRECTED 9 Days Qty: 18 0RF Rx Instructions: Take 3 tablets x3 days, 2 tablets x3 days, 1 tablet x3 days guaifenesin [Mucinex] 600 mg tablet extended release 12hr 600 mg PO Q12H 10 Days Qty: 20 0RF fluticasone propion-salmeterol 115-21 mcg/actuation HFA aerosol inhaler 2 puff inhalation BID 30 Days Qty: 12 3RF fluoxetine 40 mg capsule 40 mg PO DAILY acetaminophen [Pain Relief (acetaminophen)] 500 mg tablet 500 mg PO BID diphenhydramine HCl [Banophen] 25 mg capsule 25 mg PO Q8H PRN lidocaine [Lidoderm] 5 % adhesive patch,medicated 1 patch topical DAILY Rx Instructions: leave on most painful area for up to 12 hrs primidone 50 mg tablet 100 mg PO BID 90 Days Qty: 720 3RF
[2023-10-19 17:00] VITALS: BP 129/61; PULSE 72; RESP 19; O2SAT 96
[2023-10-19 17:11] LABS: MANUAL DIFF FLAG NO
[2023-10-19 17:13] LABS: Basophils Absolute Auto 0.1 X10*3/uL (0.0-0.2); Basophils Percent Auto 0.6 % (0-2); Eosinophils Absolute Auto 0.3 X10*3/uL (0.0-0.4); Eosinophils Percent Auto 2.9 % (0-4); Hematocrit 34.3 % (37.0-47.0); Hemoglobin 11.4 g/dl (12.0-16.0); Imm Gran Abs Auto 0.08 X10*3/uL (0.00-0.03); Imm Gran Pct Auto 0.9 % (0.0-0.4); Lymphocytes Absolute Auto 1.8 X10*3/uL (1.2-4.9); Lymphocytes Percent Auto 20.8 % (20-40); Mean Corpuscular HGB Conc 33.2 g/dl (31.0-35.0); Mean Corpuscular Hemoglobin 33.6 pg (27.0-33.0); Mean Corpuscular Volume 101.2 fL (80.0-98.0); Mean Platelet Volume 9.3 fL (9.4-12.3); Monocytes Absolute Auto 1.2 X10*3/uL (0.1-1.2); Monocytes Percent Auto 13.2 % (2-11); Neutrophils Absolute Auto 5.4 x10*3/uL (2.0-8.3); Neutrophils Percent Auto 61.6 % (45-73); Platelet Count 244 X10*3/uL (160-400); Red Blood Count 3.39 X10*6/uL (4.20-5.50); Red Cell Distribution Width 13.2 % (11.0-16.0); White Blood Count 8.7 X10*3/uL (4.8-10.8)
[2023-10-19 17:29] LABS: Alanine Aminotransferase < 5 U/L (0-31); Albumin Level 4.3 g/dL (3.5-5.0); Alkaline Phosphatase 88 U/L (39-117); Anion Gap 12 (12-20); Aspartate Amino Transferase 13 U/L (5-31); Bilirubin Total 0.2 mg/dL (0.0-1.0); Blood Urea Nitrogen 22 mg/dL (9-16); Carbon Dioxide 22 mmol/L (22-29); Chloride 108 mmol/L (96-108); Estimated Glomerular Filt Rate 46; Glucose Random 90 mg/dL (60-115); Lipase 20 U/L (8-78); Potassium 5.3 mmol/L (3.3-5.1); Sodium 137 mmol/L (135-145); Total Protein 7.5 g/dL (6.5-8.0)
[2023-10-19 18:05] LABS: Folate > 20.0 ng/mL (> or = 4.0); Vitamin B12 325 pg/mL (200-900)
--- NOTE | 2023-10-19 18:38 | PC.NURSE ---
c collar removed by PA, pt walked to bathroom. steady gait. prepared for discharge
== END 2023-10-19 18:57 | disposition home or self-care (01) ==
PROVIDERS: Physician Assistant; Emergency Provider Internal Medicine; PCP Physician Assistant
DX: S00.03XA Contusion of scalp, initial encounter (principal); W10.8XXA Fall (on) (from) other stairs and steps, initial encounter; Y93.89 Activity, other specified; Y92.008 Other place in unspecified non-institutional (private) residence as the place of occurrence of the external cause; Y99.9 Unspecified external cause status; Z87.891 Personal history of nicotine dependence; Z86.718 Personal history of other venous thrombosis and embolism; Z79.01 Long term (current) use of anticoagulants
CPT/HCPCS: 36415; 70450; 72125; 80053; 82607; 82746; 83690; 85025; 99284

== ENCOUNTER 2023-10-22 07:40 | Outpatient (REF) | payer OTHER, SELFPAY ==
[2023-10-22 08:46] LABS: Hematocrit 34.7 % (37.0-47.0); Hemoglobin 11.2 g/dl (12.0-16.0); Mean Corpuscular HGB Conc 32.3 g/dl (31.0-35.0); Mean Corpuscular Hemoglobin 33.3 pg (27.0-33.0); Mean Corpuscular Volume 103.3 fL (80.0-98.0); Mean Platelet Volume 9.5 fL (9.4-12.3); Platelet Count 281 X10*3/uL (160-400); Red Blood Count 3.36 X10*6/uL (4.20-5.50); Red Cell Distribution Width 13.2 % (11.0-16.0); White Blood Count 7.8 X10*3/uL (4.8-10.8)
[2023-10-22 10:15] LABS: Folate > 20.0 ng/mL (> or = 4.0); Vitamin B12 330 pg/mL (200-900)
[2023-10-22 10:31] LABS: Anion Gap 13 (12-20); Blood Urea Nitrogen 21 mg/dL (9-16); Calcium 8.9 mg/dL (8.4-10.2); Carbon Dioxide 22 mmol/L (22-29); Chloride 106 mmol/L (96-108); Estimated Glomerular Filt Rate 41; Glucose Random 89 mg/dL (60-115); Potassium 5.3 mmol/L (3.3-5.1); Sodium 136 mmol/L (135-145)
== END 2023-10-22 07:41 | disposition home or self-care (01) ==
LOC: HO.LAB 07:40
PROVIDERS: Visit Provider Physician Assistant
DX: D51.0 Vitamin B12 deficiency anemia due to intrinsic factor deficiency (principal); E87.5 Hyperkalemia
CPT/HCPCS: 36415; 80048; 82607; 82746; 85027

== ENCOUNTER 2023-10-30 07:43 | Outpatient (REF) | payer OTHER, SELFPAY ==
[2023-10-30 08:37] LABS: Anion Gap 10 (12-20); Blood Urea Nitrogen 14 mg/dL (9-16); Calcium 8.7 mg/dL (8.4-10.2); Carbon Dioxide 25 mmol/L (22-29); Chloride 114 mmol/L (96-108); Estimated Glomerular Filt Rate 49; Glucose Random 108 mg/dL (60-115); Potassium 4.5 mmol/L (3.3-5.1); Sodium 144 mmol/L (135-145)
== END 2023-10-30 07:44 | disposition home or self-care (01) ==
LOC: HO.LAB 07:43
PROVIDERS: PCP Physician Assistant; Visit Provider Physician Assistant
DX: E87.5 Hyperkalemia (principal)
CPT/HCPCS: 36415; 80048

== ENCOUNTER 2023-10-30 08:19 | Outpatient (AMB) | payer OTHER, SELFPAY ==
[2023-10-30 09:24] VITALS: BP 124/70; PULSE 80; RESP 18; BMI 37.2
--- NOTE | 2023-10-30 09:24 | MHC.PC.OV ---
Vital Signs 10/30/23 09:24 Height 5 ft 2 in Weight 203 lb 4 oz BMI 37.2 BP 124/70 Blood Pressure Location Lt brachial Position Sitting Respiration 18 Pulse 80 Pulse Source Palpation Intake Visit Reasons: recent fall Intake Note: Patient is here to follow-up after a visit the emergency department at [facility] on 10/19/23 due to a fall and hit head causing a Hematoma. Business Systems Developer Required: No Accompanied by: Self / Same As Patient Allergies bee pollen Allergy (Severe, Verified 10/30/23 09:58) Anaphylaxis cat dander [CATS] Allergy (Mild, Verified 10/30/23 09:58) HAYFEVER Chocolate Allergy (Mild, Verified 10/30/23 09:58) HEADACHES dog dander [DOGS] Allergy (Mild, Verified 10/30/23 09:58) HAYFEVER Environmental Allergy (Mild, Uncoded 10/30/23 09:40) HAYFEVER Medication List - Last Reconciled 10/30/23 by Sudhir Martin PA-C acetaminophen (Pain Relief (acetaminophen)) 500 mg PO BID acetaminophen-codeine 300-30 mg 1 tab PO DAILY PRN 7 days [adult pullups As directed] albuterol sulfate 90 mcg/actuation 2 puffs inhalation QID 90 days alendronate (Fosamax) 70 mg PO QWEEK 12 weeks amitriptyline 50 mg (2 x 25 mg) PO BEDTIME apixaban (Eliquis) 5 mg PO BID 90 days azelastine 1 spray intranasal BID 90 days azithromycin For 250 mg dose pack: take 500 mg today (day 1), then 250 mg for 4 days (days 2-5) PO back brace As directed baclofen 20 mg PO BEDTIME 90 days [bed pads As directed] carbidopa-levodopa 25-100 mg 1 tab PO TID 90 days cetirizine 10 mg PO DAILY 90 days cholecalciferol (vitamin D3) 50 mcg PO DAILY 90 days clonazepam 0.5 mg PO BID diaper,brief,adult,disposable As directed diphenhydramine HCl (Banophen) 25 mg PO Q8H PRN disposable gloves As directed epinephrine (EpiPen 2-Kamaljit) 0.3 mg (0.3 mL) IM ONCE PRN 30 days fluoxetine 40 mg PO DAILY fluticasone propion-salmeterol 115-21 mcg/actuation 2 puffs inhalation BID 30 days folic acid 1 mg PO DAILY 90 days gabapentin 200 mg (2 x 100 mg) PO BEDTIME 90 days gabapentin 400 mg PO BEDTIME guaifenesin ER (Mucinex) 600 mg PO Q12H 10 days incontinence pad, liner, disp As directed lidocaine 5% (Lidoderm) 1 patch topical DAILY lisinopril 2.5 mg (1/2 x 5 mg) PO DAILY 90 days loperamide 2 mg PO Q8H PRN 7 days loratadine-pseudoephedrine 10-240 mg ER (Claritin-D 24 Hour) 1 tab PO DAILY 90 days magnesium oxide 400 mg PO BEDTIME 90 days miscellaneous medical supply 1 ea miscellaneous DAILY 99 days miscellaneous medical supply 1 ea miscellaneous DAILY 99 days omeprazole 20 mg PO DAILY 90 days prednisone 10 mg PO DIRECTED 9 days primidone 100 mg (2 x 50 mg) PO BID 90 days topiramate (Topamax) 200 mg PO BID 30 days triamcinolone acetonide 0.5% 1 appl topical DAILY 15 days vitamin B complex 1 tab PO DAILY 90 days walker (Ultra-Light Rollator misc) As directed zolpidem 5 mg PO BEDTIME 30 days Tobacco use date assessed: 05/14/23 Dental Screening Dental Screen Date: 10/30/23 Did you have a dental visit in the last 12 months?: Yes Did you have a dental problem in the last 6 months where you did not have access to dental care?: No Was dental information given to patient?: Patient has dentist HPI recent fall HPI Details Patient is 63-year-old female here today for an ER follow-up visit. She suffered a fall on October 19, she reports that was mechanical fall down few steps. She did injure her head and now has a hematoma. CT of head and neck without any intracranial hemorrhaging. Of note on physical exam today she does have left lower extremity swelling more than right lower extremity. She does have erythema over the anterior aspect of her bauer. Seems to be cellulitis though has history of DVT will send for urgent ultrasound for evaluation of recurrent DVT. She continues on [facility] Medical History COVID-19 History of abnormal cervical Pap smear Spinal stenosis, cervical region Peripheral polyneuropathy Spondylosis of cervical spine Spondylosis of lumbar spine Cocaine abuse Alcohol abuse Hepatitis HIV (human immunodeficiency virus infection) Heart murmur History of cocaine abuse History of heroin abuse Hydradenitis Former cigarette smoker Recovering alcoholic GERD (gastroesophageal reflux disease) Lumbago with sciatica, left side Arthritis Back pain On anticoagulant therapy DVT (deep venous thrombosis) History of celiac disease Anxiety Panic attacks Depression PTSD (post-traumatic stress disorder) Parkinson disease History of frequent headaches Seizure Asthma Surgical History H/O excision of ganglion cyst Hx of esophagogastroduodenoscopy History of carpal tunnel surgery of left wrist Hx of nasal septoplasty History of hemorrhoidectomy Hx of colonoscopy Family History Mother No problems noted. Social History Housing: Apartment Are you a primary critical care paramedic to a significant other at home: No Do you presently have visiting nurse or other home services: Yes Alcohol intake: former Year quit: 2003 Comment: was seen at [facility]-called for note Patient Tobacco Use Status: Current everyday Tobacco user Tobacco use type: Cigarette Cigarette Packs Per Day: 5 Cigarettes Per Day: 40 Years Smoked: 45 e-Cigarette/Vaping Use: Currently Using Second Hand Smoke Exposure: No service: No Current occupational status: disabled Cognitive needs: Yes (back brace) Hearing needs: No Vision needs: Yes Questionnaire Thrive Questionnaire Date Thrive assessed: 02/28/23 LUISA-7 AMB Questionnaire LUISA-7 Date LUISA - 7 assessed: 02/28/23 Source: Developed by Drs. Boris Garcia, Qian Bullard, Hector Herzog and colleagues, with an educational miguel a from [email or web address]. Review of Systems Const Denies headache(s) Eyes Denies loss of vision ENT Denies vertigo, Denies dizziness, Denies headache(s) and Denies sore throat Card Denies chest pain, Denies leg edema and Denies lightheadedness Resp Denies cough, Denies hemoptysis and Denies wheezing GI Denies abdominal pain, Denies melena, Denies constipation, Denies diarrhea and Denies vomiting Denies urinary frequency, Denies dysuria and Denies urinary urgency Musc Denies arthralgias, Denies joint swelling, Denies numbness and Denies tingling Neuro Denies Abnormal speech present, Denies behavioral changes, Denies vertigo, Denies dizziness, Denies headache(s), Denies loss of vision, Denies memory loss, Denies numbness and Denies tingling Psych Denies anxiety, Denies behavioral changes, Denies depression, Denies memory loss and Denies panic attacks Carlos/Lymph Denies easy bleeding and Denies easy bruising Aller/Immun Denies wheezing Physical exam (Primary Care) Vital Signs: Last Vital Signs Pulse 80 10/30/23 09:24 Resp 18 10/30/23 09:24 BP 124/70 10/30/23 09:24 BMI result Body Mass Index 37.2 BMI Assessment/Plan discussion: High Tobacco/Smoking Status: Tobacco use Status Tobacco use date assessed 05/14/23 10/30/23 09:25 Patient Tobacco Use Status Current everyday Tobacco 10/30/23 09:25 Tobacco use type Cigarette 10/30/23 09:25 e-Cigarette/Vaping Use Currently Using 10/30/23 09:25 Thrive Assessment: Date of Thrive Assessment Date Thrive assessed 02/28/23 10/30/23 09:25 Const General: healthy appearing, no acute distress, alert and awake Nutritional Appearance: well nourished Orientation/consciousness: oriented to person, oriented to place and oriented to time HENMT Ears: TM's normal bilaterally General nose exam: Normal nasal mucous membranes and turbinates present Eyes Conjunctivae: conjunctivae normal Sclerae: sclerae normal Pupils: Equal, round and reactive pupils present Neck Neck: Yes no lymphadenopathy and Yes no JVD Thyroid: Thyroid normal Carotids: no bruits Resp Effort & Inspection: normal respiratory effort and not tachypneic Auscultation: no crackles, no rales, no rhonchi and no wheezes Cardio Rate: regular rate Rhythm: regular rhythm Heart sounds: no murmurs and normal S1 and S2 GI Palpation (GI): Soft to palpation, nontender, no hepatomegaly and no splenomegaly Auscultation: normal bowel sounds Skin General skin exam: no rashes or lesions noted and dry skin Neuro General: oriented to person, oriented to place and oriented to time Cranial nerves: Yes Equal, round and reactive pupils present Speech: No Abnormal speech present Gait exam (Neuro): Normal gait present Motor exam (neuro): no tremor noted Extrem Other: LEFT LOWER EXTREMITY ERYTHEMATOUS AND LARGER IN DIAMETER THAN RIGHT LOWER EXTREMITY. Right upper extremity: full ROM Left upper extremity: full ROM Right lower extremity: full ROM; no edema Left lower extremity: full ROM and edema Psych Mental Status: mental status grossly normal Speech and movement: Normal speech and movement present Affect: normal affect Attitude: cooperative Thought process: Normal thought process present Assessment and Plan Assessment & Plan (1) Left leg cellulitis: Code(s): L03.116 - Cellulitis of left lower limb Plan: Patient does seem to have cellulitis on the left lower extremity. Will send in antibiotics. Will re-evaluate the leg 1 week. (2) Left leg swelling: Code(s): M79.89 - Other specified soft tissue disorders Plan: Notable swelling over left lower extremity. May be related to acute skin infection has her skin is erythematous over the anterior aspect of the left lower extremity.. Will send for urgent ultrasound to evaluate for an acute clot. Does have history of a DVT in left lower extremity. Continues on Eliquis. Orders: Orders US venous duplex LE 10/30/23 M79.89 - Other specified soft tissue disorders Medications: New amoxicillin-pot clavulanate 875-125 mg 1 tab PO Q12H 10 days 20 tabs 0RF L03.116 - Cellulitis of left lower limb montelukast 10 mg PO DAILY 90 days 90 tabs 1RF J30.1 - Allergic rhinitis due to pollen doxycycline monohydrate 100 mg PO BID 7 days 14 caps 0RF L03.116 - Cellulitis of left lower limb Discontinued azithromycin Discontinued Reason: Change Referral Type For 250 mg dose pack: take 500 mg today (day 1), then 250 mg for 4 days (days 2-5) PO 6 tabs 0RF J44.1 - Chronic obstructive pulmonary disease with (acute) exacerbation prednisone Take 3 tablets x3 days, 2 tablets x3 days, 1 tablet x3 days Discontinued Reason: Doctor's Order 10 mg PO DIRECTED 9 days 18 tabs 0RF J44.1 - Chronic obstructive pulmonary disease with (acute) exacerbation On Hold cetirizine Hold Comment: Doctor's Order 10 mg PO DAILY 90 days 90 tabs 1RF J32.9 - Chronic sinusitis, unspecified Coding Level of Care Code Est Pt Level 3 (37754) Diagnoses Left leg cellulitis L03.116 Left leg swelling M79.89
== END 2023-10-30 10:21 | disposition home or self-care (01) ==
PROVIDERS: PCP Physician Assistant; Visit Provider Physician Assistant
DX: L03.116 Cellulitis of left lower limb (principal); M79.89 Other specified soft tissue disorders
CPT/HCPCS: 99213

== ENCOUNTER 2023-10-30 10:41 | Outpatient (REF) | payer OTHER, SELFPAY ==
--- NOTE | ~2023-10-30 | US_ITS ---
EXAMINATION: US VENOUS ULTRASOUND WITH DOPPLER LOWER EXTREMITY, LEFT CLINICAL INFORMATION: Recurrent DVT COMPARISON: Ultrasound venous Doppler lower extremity bilateral from 05/14/2023 TECHNIQUE: Ultrasound of the deep veins is performed from the hip to the calf with compression sonography and color and pulse Doppler assessment. Spectral analysis with color-flow imaging is performed. FINDINGS: Redemonstration of chronic appearing thrombus in the left common femoral vein from its proximal to midportion There is normal venous compression and respiratory variation and augmented flow. The visualized superficial femoral vein, profunda femoral vein, popliteal vein, and the trifurcation region shows no evidence of deep venous thrombosis. Calf veins are not well-visualized secondary to overlying bowel gas. Mildly prominent lymph node noted in the left thigh measuring 0.8 cm in short axis. US/US venous duplex LE LT IMPRESSION: 1. Redemonstration of chronic appearing thrombus in the left common femoral vein from its proximal to midportion. 2. No acute visualized thrombus. 3. Calf veins are not well-visualized secondary to overlying bowel gas. 4. Mildly prominent lymph node noted in the left thigh measuring 0.8 cm in short axis.
== END 2023-10-30 10:42 | disposition home or self-care (01) ==
LOC: HO.US 10:41
PROVIDERS: PCP Physician Assistant; Visit Provider Physician Assistant
DX: R60.0 Localized edema (principal)
CPT/HCPCS: 93971

== ENCOUNTER 2023-11-04 07:54 | Outpatient (AMB) | payer OTHER, SELFPAY ==
[2023-11-04 09:02] VITALS: BP 100/80; PULSE 83; BMI 37.2
--- NOTE | 2023-11-04 09:02 | A.OFFVIS_ITS ---
Intake Vital Signs 11/04/23 09:02 Height 5 ft 2 in Weight 203 lb 4.259 oz BMI 37.2 BP 100/80 Blood Pressure Location Lt brachial Position Sitting Pulse 83 Intake Visit Reasons: 1 yr f/up Intake Note: 1 yr f/up pt its feeling fine [employer] Mica Required: No Accompanied by: Self / Same As Patient Allergies bee pollen Allergy (Severe, Verified 10/30/23 09:58) Anaphylaxis cat dander [CATS] Allergy (Mild, Verified 10/30/23 09:58) HAYFEVER Chocolate Allergy (Mild, Verified 10/30/23 09:58) HEADACHES dog dander [DOGS] Allergy (Mild, Verified 10/30/23 09:58) HAYFEVER Environmental Allergy (Mild, Uncoded 10/30/23 09:40) HAYFEVER Medication List - Last Reconciled 11/04/23 by Francisco Alvares MD acetaminophen (Pain Relief (acetaminophen)) 500 mg PO BID acetaminophen-codeine 300-30 mg 1 tab PO DAILY PRN 7 days [adult pullups As directed] albuterol sulfate 90 mcg/actuation 2 puffs inhalation QID 90 days alendronate (Fosamax) 70 mg PO QWEEK 12 weeks amitriptyline 50 mg (2 x 25 mg) PO BEDTIME amoxicillin-pot clavulanate 875-125 mg 1 tab PO Q12H 10 days apixaban (Eliquis) 5 mg PO BID 90 days azelastine 1 spray intranasal BID 90 days back brace As directed baclofen 20 mg PO BEDTIME 90 days [bed pads As directed] carbidopa-levodopa 25-100 mg 1 tab PO TID 90 days cholecalciferol (vitamin D3) 50 mcg PO DAILY 90 days clonazepam 0.5 mg PO BID diaper,brief,adult,disposable As directed diphenhydramine HCl (Banophen) 25 mg PO Q8H PRN disposable gloves As directed doxycycline monohydrate 100 mg PO BID epinephrine (EpiPen 2-Kamaljit) 0.3 mg (0.3 mL) IM ONCE PRN 30 days fluoxetine 40 mg PO DAILY fluticasone propion-salmeterol 115-21 mcg/actuation 2 puffs inhalation BID 30 days folic acid 1 mg PO DAILY 90 days gabapentin 200 mg (2 x 100 mg) PO BEDTIME 90 days gabapentin 400 mg PO BEDTIME incontinence pad, liner, disp As directed loperamide 2 mg PO Q8H PRN 7 days loratadine-pseudoephedrine 10-240 mg ER (Claritin-D 24 Hour) 1 tab PO DAILY 90 days magnesium oxide 400 mg PO BEDTIME 90 days miscellaneous medical supply 1 ea miscellaneous DAILY 99 days miscellaneous medical supply 1 ea miscellaneous DAILY 99 days montelukast 10 mg PO DAILY 90 days omeprazole 20 mg PO DAILY 90 days primidone 100 mg (2 x 50 mg) PO BID 90 days topiramate (Topamax) 200 mg PO BID 30 days triamcinolone acetonide 0.5% 1 appl topical DAILY 15 days vitamin B complex 1 tab PO DAILY 90 days walker (Ultra-Light Rollator mis) As directed zolpidem 5 mg PO BEDTIME 30 days HPI HPI Comments History of Present Illness Details 63-year-old female with background histo ry of peripheral neuropathy, polysubstance abuse and previous DVTs who is presenting for shortness of breath and chest discomfort. She is a current smoker. She has been experiencing dyspnea with exertion. She said she was in the sun and had skin sosa on both legs. She is saying that her skin is very sensitive and this happens if she is out in the sun. She also has bilateral lower extremity edema left more than right. She had fracture of left ankle in November 2020. She is complaining of quite atypical upper abdominal and chest feeling which she feels like an electric shock-like sensation. This happens at rest. This has happened once while she was taking shower. She is anxious anxious and emotional. She also has shortness of breath with exertion. No orthopnea PND. She has some peripheral edema which has been present for some time from her report. She has been on Eliquis for previous DVT. She had Lexiscan done which showed no perfusion defect. She is saying she has been feeling better. Overall her breathing is stable. She is saying she has Parkinson's disease and is on carbidopa-levodopa. 11/04/23: She returns for follow-up. S he is denying chest discomfort. She has been getting cough and wheezing at nighttime. She has known history of asthma currently is taking 2 inhalers. She follows with primary care physician mostly. She is saying that Parkinson's disease is getting worse. She is walking with a walker when she came to the office. [facility] Medical History COVID-19 History of abnormal cervical Pap smear Spinal stenosis, cervical region Peripheral polyneuropathy Spondylosis of cervical spine Spondylosis of lumbar spine Cocaine abuse Alcohol abuse Hepatitis HIV (human immunodeficiency virus infection) Heart murmur History of cocaine abuse History of heroin abuse Hydradenitis Former cigarette smoker Recovering alcoholic GERD (gastroesophageal reflux disease) Lumbago with sciatica, left side Arthritis Back pain On anticoagulant therapy DVT (deep venous thrombosis) History of celiac disease Anxiety Panic attacks Depression PTSD (post-traumatic stress disorder) Parkinson disease History of frequent headaches Seizure Asthma Surgical History H/O excision of ganglion cyst Hx of esophagogastroduodenoscopy History of carpal tunnel surgery of left wrist Hx of nasal septoplasty History of hemorrhoidectomy Hx of colonoscopy Family History Mother No problems noted. Social History Housing: Apartment Are you a primary pharmacy customer care specialist to a significant other at home: No Do you presently have visiting nurse or other home services: Yes Alcohol intake: former Year quit: 2003 Comment: was seen at [facility]-called for note Patient Tobacco Use Status: Current everyday Tobacco user Tobacco use type: Cigarette Cigarette Packs Per Day: 5 Cigarettes Per Day: 40 Years Smoked: 45 e-Cigarette/Vaping Use: Currently Using Second Hand Smoke Exposure: No service: No Current occupational status: disabled Cognitive needs: Yes (back brace) Hearing needs: No Vision needs: Yes Physical Exam Vital Signs: Last Vital Signs Pulse 83 11/04/23 09:02 BP 100/80 11/04/23 09:02 BMI result Body Mass Index 37.2 GENERAL APPEARANCE: in no acute distress, tremors from Parkinson's disease. NECK: no carotid bruit, no jugular venous distention. HEART: Systolic murmur left parasternal border, regular rate and rhythm. LUNGS: clear to auscultation bilaterally. ABDOMEN: soft, nontender. PERIPHERAL PULSES: equal. Mild edema. NEUROLOGIC: No gross deficits, AAO X 3 Office Procedures EKG Details: Sinus rhythm 83 beats per minute, normal axis, normal ECG, QTC 427 milliseconds. [id number], Complete Assessment & Plan Assessment & Plan (1) HTN (hypertension): Code(s): I10 - Essential (primary) hypertension Qualifiers: Hypertension type: primary hypertension Qualified Code(s): I10 - Miky vergara (primary) hypertension Plan 63-year-old female who is here for follow-up. She has background history of polysubstance abuse and Parkinson disease. No chest discomfort or shortness of breath. She has nighttime wheezing and coughing. This can be due to bronchial asthma and she has history of asthma. Other possibilities acid reflux. Not in heart failure by exam or clinical story. I will message her primary care physician. She can see us in 1 year. Thank you for allowing me to participate in the care of your patient. Please feel free to contact me if you have any questions. Medications: Changed From doxycycline monohydrate 100 mg PO BID 7 days 14 caps 0RF L03.116 - Cellulitis of left lower limb To doxycycline monohydrate 100 mg PO BID L03.116 - Cellulitis of left lower limb Coding Level of Care Code Est Pt Level 3 (52913) Diagnoses Primary hypertension I10 Hypertension type: primary hypertension CPT Codes EKG - CPT: 45281-[id number], Complete ([id number])
== END 2023-11-04 10:40 | disposition home or self-care (01) ==
PROVIDERS: Visit Provider Internal Medicine Cardiovascular Disease
DX: I10 Essential (primary) hypertension (principal)
CPT/HCPCS: 93010; 99213

== ENCOUNTER → 2023-11-04 07:54 | Outpatient (BNVA) | payer OTHER, SELFPAY | PROVIDERS: Visit Provider Internal Medicine Cardiovascular Disease | DX: I10 Essential (primary) hypertension (principal) | CPT/HCPCS: 93005; 99212 ==

== ENCOUNTER 2023-11-07 08:05 | Outpatient (AMB) | payer OTHER, SELFPAY ==
[2023-11-07 08:10] VITALS: BP 120/72; PULSE 84; O2SAT 95; BMI 36.4
--- NOTE | 2023-11-07 08:10 | MHC.PC.OV ---
Vital Signs 11/07/23 08:10 Height 5 ft 2 in Weight 199 lb BMI 36.4 BP 120/72 Blood Pressure Location Lt brachial Position Sitting Pulse 84 Pulse Source Pulse Oximeter Pulse Oximetry (%) 95 Oxygen Delivery Method Room Air Intake Visit Reasons: Follow-up leg cellulitis Intake Note: Patient here for a follow up Leg Cellulitis, Allergies Data Examination Clerk Required: No Accompanied by: Self / Same As Patient Allergies bee pollen Allergy (Severe, Verified 11/07/23 08:25) Anaphylaxis cat dander [CATS] Allergy (Mild, Verified 11/07/23 08:25) HAYFEVER Chocolate Allergy (Mild, Verified 11/07/23 08:25) HEADACHES dog dander [DOGS] Allergy (Mild, Verified 11/07/23 08:25) HAYFEVER Environmental Allergy (Mild, Uncoded 10/30/23 09:40) HAYFEVER Medication List - Last Reconciled 11/07/23 by Sudhir Martin PA-C acetaminophen (Pain Relief (acetaminophen)) 500 mg PO BID acetaminophen-codeine 300-30 mg 1 tab PO DAILY PRN 7 days [adult pullups As directed] albuterol sulfate 90 mcg/actuation 2 puffs inhalation QID 90 days alendronate (Fosamax) 70 mg PO QWEEK 12 weeks amitriptyline 50 mg (2 x 25 mg) PO BEDTIME amoxicillin-pot clavulanate 875-125 mg 1 tab PO Q12H 10 days apixaban (Eliquis) 5 mg PO BID 90 days azelastine 1 spray intranasal BID 90 days back brace As directed baclofen 20 mg PO BEDTIME 90 days [bed pads As directed] cane As directed carbidopa-levodopa 25-100 mg 1 tab PO TID 90 days cholecalciferol (vitamin D3) 50 mcg PO DAILY 90 days clonazepam 0.5 mg PO BID diaper,brief,adult,disposable As directed diphenhydramine HCl (Banophen) 25 mg PO Q8H PRN disposable gloves As directed doxycycline monohydrate 100 mg PO BID epinephrine (EpiPen 2-Kamaljit) 0.3 mg (0.3 mL) IM ONCE PRN 30 days fluoxetine 40 mg PO DAILY fluticasone propion-salmeterol 115-21 mcg/actuation 2 puffs inhalation BID 30 days folic acid 1 mg PO DAILY 90 days gabapentin 200 mg (2 x 100 mg) PO BEDTIME 90 days gabapentin 400 mg PO BEDTIME incontinence pad, liner, disp As directed loperamide 2 mg PO Q8H PRN 7 days loratadine-pseudoephedrine 10-240 mg ER (Claritin-D 24 Hour) 1 tab PO DAILY 90 days magnesium oxide 400 mg PO BEDTIME 90 days miscellaneous medical supply 1 ea miscellaneous DAILY 99 days miscellaneous medical supply 1 ea miscellaneous DAILY 99 days montelukast 10 mg PO DAILY 90 days omeprazole 20 mg PO DAILY 90 days primidone 100 mg (2 x 50 mg) PO BID 90 days topiramate (Topamax) 200 mg PO BID 30 days triamcinolone acetonide 0.5% 1 appl topical DAILY 15 days vitamin B complex 1 tab PO DAILY 90 days walker (Ultra-Light Rollator misc) As directed zolpidem 5 mg PO BEDTIME 30 days Tobacco use date assessed: 05/14/23 Dental Screening Dental Screen Date: 11/07/23 Did you have a dental visit in the last 12 months?: Yes Did you have a dental problem in the last 6 months where you did not have access to dental care?: No Was dental information given to patient?: Patient has dentist HPI Follow-up leg cellulitis HPI Details Patient is a 63-year-old female here today for a follow-up visit. Last week we discussed her lower extremity erythema and swelling. Antibiotics for cellulitis. Was also sent for ultrasound of her left lower extremity that did not show any acute DVT although does have chronic DVT to which she is treated for with anticoagulation. She has finished full course of doxycycline and amoxicillin which has drastically reduced her cellulitic appearance of her left lower extremity. [facility] Medical History COVID-19 History of abnormal cervical Pap smear Spinal stenosis, cervical region Peripheral polyneuropathy Spondylosis of cervical spine Spondylosis of lumbar spine Cocaine abuse Alcohol abuse Hepatitis HIV (human immunodeficiency virus infection) Heart murmur History of cocaine abuse History of heroin abuse Hydradenitis Former cigarette smoker Recovering alcoholic GERD (gastroesophageal reflux disease) Lumbago with sciatica, left side Arthritis Back pain On anticoagulant therapy DVT (deep venous thrombosis) History of celiac disease Anxiety Panic attacks Depression PTSD (post-traumatic stress disorder) Parkinson disease History of frequent headaches Seizure Asthma Surgical History H/O excision of ganglion cyst Hx of esophagogastroduodenoscopy History of carpal tunnel surgery of left wrist Hx of nasal septoplasty History of hemorrhoidectomy Hx of colonoscopy Family History Mother No problems noted. Social History Housing: Apartment Are you a primary health care facilities inspector to a significant other at home: No Do you presently have visiting nurse or other home services: Yes Alcohol intake: former Year quit: 2003 Comment: was seen at [facility]-called for note Patient Tobacco Use Status: Current everyday Tobacco user Tobacco use type: Cigarette Cigarette Packs Per Day: 5 Cigarettes Per Day: 40 Years Smoked: 45 e-Cigarette/Vaping Use: Currently Using Second Hand Smoke Exposure: No service: No Current occupational status: disabled Cognitive needs: Yes (back brace) Hearing needs: No Vision needs: Yes Questionnaire Thrive Questionnaire Date Thrive assessed: 02/28/23 LUISA-7 AMB Questionnaire LUISA-7 Date LUISA - 7 assessed: 02/28/23 Source: Developed by Drs. Boris Garcia, Qian Bullard, Hector Herzog and colleagues, with an educational miguel a from [employer]. Review of Systems Const Denies headache(s) Eyes Denies loss of vision ENT Denies vertigo, Denies dizziness, Denies headache(s) and Denies sore throat Card Denies chest pain, Denies leg edema and Denies lightheadedness Resp Denies cough, Denies hemoptysis and Denies wheezing GI Denies abdominal pain, Denies melena, Denies constipation, Denies diarrhea and Denies vomiting Denies urinary frequency, Denies dysuria and Denies urinary urgency Musc Denies arthralgias, Denies joint swelling, Denies numbness and Denies tingling Neuro Denies Abnormal speech present, Denies behavioral changes, Denies vertigo, Denies dizziness, Denies headache(s), Denies loss of vision, Denies memory loss, Denies numbness and Denies tingling Psych Denies anxiety, Denies behavioral changes, Denies depression, Denies memory loss and Denies panic attacks Carlos/Lymph Denies easy bleeding and Denies easy bruising Aller/Immun Denies wheezing Physical exam (Primary Care) Vital Signs: Last Vital Signs Pulse 84 11/07/23 08:10 BP 120/72 11/07/23 08:10 Pulse Ox 95 11/07/23 08:10 Oxygen Delivery Method Room Air 11/07/23 08:10 BMI result Body Mass Index 36.4 Tobacco/Smoking Status: Tobacco use Status Tobacco use date assessed 05/14/23 11/07/23 08:17 Patient Tobacco Use Status Current everyday Tobacco 11/07/23 08:17 Tobacco use type Cigarette 11/07/23 08:17 e-Cigarette/Vaping Use Currently Using 11/07/23 08:17 Thrive Assessment: Date of Thrive Assessment Date Thrive assessed 02/28/23 11/07/23 08:17 Const General: healthy appearing, no acute distress, alert and awake Nutritional Appearance: well nourished Orientation/consciousness: oriented to person, oriented to place and oriented to time HENMT Ears: TM's normal bilaterally General nose exam: Normal nasal mucous membranes and turbinates present Eyes Conjunctivae: conjunctivae normal Sclerae: sclerae normal Pupils: Equal, round and reactive pupils present Neck Neck: Yes no lymphadenopathy and Yes no JVD Thyroid: Thyroid normal Carotids: no bruits Resp Effort & Inspection: normal respiratory effort and not tachypneic Auscultation: no crackles, no rales, no rhonchi and no wheezes Cardio Rate: regular rate Rhythm: regular rhythm Heart sounds: no murmurs and normal S1 and S2 GI Palpation (GI): Soft to palpation, nontender, no hepatomegaly and no splenomegaly Auscultation: normal bowel sounds Skin General skin exam: no rashes or lesions noted and dry skin Neuro General: oriented to person, oriented to place and oriented to time Cranial nerves: Yes Equal, round and reactive pupils present Speech: No Abnormal speech present Gait exam (Neuro): Normal gait present Motor exam (neuro): no tremor noted Extrem Other: BILATERAL 1+ PITTING EDEMA TO PROXIMAL TADEO. IMPROVED ERYTHEMA OVER THE LEFT LOWER EXTREMITY. Right upper extremity: full ROM Left upper extremity: full ROM Right lower extremity: full ROM and edema Left lower extremity: full ROM and edema Psych Mental Status: mental status grossly normal Speech and movement: Normal speech and movement present Affect: normal affect Attitude: cooperative Thought process: Normal thought process present Assessment and Plan Assessment & Plan (1) Left leg swelling: Code(s): M79.89 - Other specified soft tissue disorders Plan: Lower extremity swelling improved. Erythema much improved. Will supply patient with 2 week script furosemide. I believe the reason she is experiencing balance issues and falls is partly to do with her lower extremity edema.. She will try to use her compression socks more often. Could has been elevating her legs as well. Orders: Orders Complete Blood Count no Diff Today J44.1 - Chronic obstructive pulmonary disease with (acute) exacerbation Vitamin B12 and Folate Today E53.8 - Deficiency of other specified B group vitamins Comprehensive [place]. Panel Fast Today I10 - Essential (primary) hypertension Microalbumin, Random (w Creat) Today I10 - Essential (primary) hypertension Medications: New amitriptyline 50 mg PO BEDTIME 90 days 90 tabs 1RF G47.00 - Insomnia, unspecified furosemide 20 mg PO DAILY 14 days 14 tabs 0RF M79.89 - Other specified soft tissue disorders compr.stocking,knee,long,large As directed 2 ea 0RF M79.89 - Other specified soft tissue disorders Refilled cane As directed 1 ea 0RF M17.12 - Unilateral primary osteoarthritis, left knee Discontinued zolpidem Discontinued Reason: Doctor's Order 5 mg PO BEDTIME 30 days 30 tabs 1RF G47.9 - Sleep disorder, unspecified amitriptyline Discontinued Reason: Doctor's Order 50 mg (2 x 25 mg) PO BEDTIME 90 tabs 1RF G47.9 - Sleep disorder, unspecified Coding Level of Care Code Est Pt Level 3 (85163) Diagnoses Left leg swelling M79.89
== END 2023-11-07 08:42 | disposition home or self-care (01) ==
PROVIDERS: PCP Physician Assistant; Visit Provider Physician Assistant
DX: M79.89 Other specified soft tissue disorders (principal)
CPT/HCPCS: 99213

== ENCOUNTER 2023-11-20 15:08 | Outpatient (AMB) | payer OTHER, SELFPAY ==
--- NOTE | 2023-11-20 15:55 | MHC.OFFVIS ---
Intake Vital Signs 11/20/23 16:04 Height 5 ft 2 in Weight 199 lb BMI 36.4 BP 122/78 Blood Pressure Location Rt brachial Position Sitting Pulse 78 Pulse Source Pulse Oximeter Pulse Oximetry (%) 98 Oxygen Delivery Method Room Air Intake Visit Reasons: 2m f/u Parkinson-Confirmed Allergies bee pollen Allergy (Severe, Verified 11/07/23 08:25) Anaphylaxis cat dander [CATS] Allergy (Mild, Verified 11/07/23 08:25) HAYFEVER Chocolate Allergy (Mild, Verified 11/07/23 08:25) HEADACHES dog dander [DOGS] Allergy (Mild, Verified 11/07/23 08:25) HAYFEVER Environmental Allergy (Mild, Uncoded 10/30/23 09:40) HAYFEVER Medication List - Last Reconciled 11/20/23 by Zunilda Enriquez MD acetaminophen (Pain Relief (acetaminophen)) 500 mg PO BID 90 days acetaminophen-codeine 300-30 mg 1 tab PO DAILY PRN 7 days [adult pullups As directed] albuterol sulfate 90 mcg/actuation 2 puffs inhalation QID 90 days alendronate (Fosamax) 70 mg PO QWEEK 12 weeks amitriptyline 50 mg PO BEDTIME 90 days amoxicillin-pot clavulanate 875-125 mg 1 tab PO Q12H 10 days apixaban (Eliquis) 5 mg PO BID 90 days azelastine 1 spray intranasal BID 90 days back brace As directed baclofen 20 mg PO BEDTIME 90 days [bed pads As directed] cane As directed carbidopa-levodopa 25-100 mg 1 tab PO TID 90 days cholecalciferol (vitamin D3) 50 mcg PO DAILY 90 days clonazepam 0.5 mg PO BID compr.stocking,knee,long,large As directed diaper,brief,adult,disposable As directed diphenhydramine HCl (Banophen) 25 mg PO Q8H 90 days disposable gloves As directed doxycycline monohydrate 100 mg PO BID epinephrine (EpiPen 2-Kamaljit) 0.3 mg (0.3 mL) IM ONCE PRN 30 days fluoxetine 40 mg PO DAILY fluticasone propion-salmeterol 115-21 mcg/actuation 2 puffs inhalation BID 30 days folic acid 1 mg PO DAILY 90 days furosemide 20 mg PO DAILY 14 days gabapentin 200 mg (2 x 100 mg) PO BEDTIME 90 days gabapentin 400 mg PO BEDTIME humidifiers (Cool Mist Humidifier) As directed incontinence pad, liner, disp As directed loperamide 2 mg PO Q8H PRN 7 days loratadine-pseudoephedrine 10-240 mg ER (Claritin-D 24 Hour) 1 tab PO DAILY 90 days magnesium oxide 400 mg PO BEDTIME 90 days miscellaneous medical supply 1 ea miscellaneous DAILY 99 days miscellaneous medical supply 1 ea miscellaneous DAILY 99 days montelukast 10 mg PO DAILY 90 days omeprazole 20 mg PO DAILY 90 days primidone 100 mg (2 x 50 mg) PO BID 90 days [soft neck brace As directed] topiramate (Topamax) 200 mg PO BID 30 days triamcinolone acetonide 0.5% 1 appl topical DAILY 15 days vitamin B complex 1 tab PO DAILY 90 days walker (Ultra-Light Rollator misc) As directed HPI HPI Comments History of Present Illness Details 63 y/o female patient presents for follow up of head tremor, and gait disorder.Her head and hand tremors worsens when she goes to AA meeting .She is not sure increase in primidone helped . she is also on carbidopa/levodopa 25/100 tid Pt feels her head tremor has not been improved, and jaw tremor is still same. Pt has a RUMPER to help the ADLs. Pt reports difficulty sleeping even with ambien , benadryl and amitriptyline. Her sleep schedule is 10-11 pm to 8:30 am but wakes up frequently. She takes 15-20 mg of melatonin, gabapentin 600 mg qhs baclofen 10 mg clonazepam 0.5 mg bid amitriptyline 50 mg and ambien 5 mg. She smokes a pack of cigarettes pack every 3-4 days. She switched to vaping. 5 % nicotine. Pt has hx of anxiety and panic attack, sees psychiatrist every three months. She walks her dog daily, uses cane to walk. [facility] Medical History COVID-19 History of abnormal cervical Pap smear Spinal stenosis, cervical region Peripheral polyneuropathy Spondylosis of cervical spine Spondylosis of lumbar spine Cocaine abuse Alcohol abuse Hepatitis HIV (human immunodeficiency virus infection) Heart murmur History of cocaine abuse History of heroin abuse Hydradenitis Former cigarette smoker Recovering alcoholic GERD (gastroesophageal reflux disease) Lumbago with sciatica, left side Arthritis Back pain On anticoagulant therapy DVT (deep venous thrombosis) History of celiac disease Anxiety Panic attacks Depression PTSD (post-traumatic stress disorder) Parkinson disease History of frequent headaches Seizure Asthma Surgical History H/O excision of ganglion cyst Hx of esophagogastroduodenoscopy History of carpal tunnel surgery of left wrist Hx of nasal septoplasty History of hemorrhoidectomy Hx of colonoscopy Family History Mother No problems noted. Social History Housing: Apartment Are you a primary nanny caregiver to a significant other at home: No Do you presently have visiting nurse or other home services: Yes Alcohol intake: former Year quit: 2003 Comment: was seen at [facility]-called for note Patient Tobacco Use Status: Current everyday Tobacco user Tobacco use type: Cigarette Cigarette Packs Per Day: 5 Cigarettes Per Day: 40 Years Smoked: 45 e-Cigarette/Vaping Use: Currently Using Second Hand Smoke Exposure: No service: No Current occupational status: disabled Cognitive needs: Yes (back brace) Hearing needs: No Vision needs: Yes Physical Exam Const General: cooperative, healthy appearing and comfortable Nutritional Appearance: average body habitus Orientation/consciousness: patient oriented x3 Limitations: no limitations HEENT Other: yes yes head tremors - mild Jaw tremors, voice and tongue tremors Head: Yes normal to inspection and Yes normocephalic Eyes Pupils: Equal, round and reactive pupils present Neck Other: restricted range of motion Neuro Other: mild decreased facial expression and blink Voice- normal, tremors No rest tremors No cog wheel rigidity General: patient oriented x3, tone normal, moves all extremities and no focal motor deficits Cranial nerves: Yes CN's II-XII intact bilaterally, Yes Facial sensation intact/muscles of mastication intact, Yes Equal, round and reactive pupils present, Yes Bilaterally intact EOM present, Yes Nystagmus not present, Yes Normal facial strength present and Yes Midline tongue present Cognition (Neuro): normal cognition Gait exam (Neuro): Other gait observations present (normal base and stride , cannot tandem) Motor exam (neuro): 5/5 motor strength present throughout Coordination: [id number] test normal Psych Appearance: grossly normal Speech and movement: Normal speech and movement present Assessment & Plan Assessment & Plan (1) Benign head tremor: Comment: Likely related to cervical spondylosis and dystonia Code(s): G25.0 - Essential tremor (2) Gait disorder: Comment: multifactorial, arthritis, h/o alcoholism,? neuropathy Code(s): R26.9 - Unspecified abnormalities of gait and mobility (3) Tobacco dependence: Code(s): F17.200 - Nicotine dependence, unspecified, uncomplicated (4) Sleep disorder: Code(s): G47.9 - Sleep disorder, unspecified Plan Taper carbidopa/levodopa 25/100 bid for 1 week, qd for 1 week and stop. primidone 100mg bid for better tremors control Continue to take gabapentin to 600 mg q HS for sleep. Continue to take melatonin 15-20 mg qHS. Magnesium 400 mg qHS to prevent muscle spasm. Sleep hygiene education provided. Advised patient to limit smoking in the evening. Medications: New zolpidem 10 mg PO BEDTIME Coding Level of Care Code Est Pt Level 4 (73685) Diagnoses Benign head tremor G25.0 Gait disorder R26.9 Tobacco dependence F17.200 Sleep disorder G47.9
[2023-11-20 16:04] VITALS: BP 122/78; PULSE 78; O2SAT 98; BMI 36.4
== END 2023-11-20 16:05 | disposition home or self-care (01) ==
PROVIDERS: PCP Physician Assistant; Visit Provider Psychiatry & Neurology Neurology
DX: G25.0 Essential tremor (principal); R26.9 Unspecified abnormalities of gait and mobility; F17.200 Nicotine dependence, unspecified, uncomplicated; G47.9 Sleep disorder, unspecified
CPT/HCPCS: 99214

== ENCOUNTER → 2023-11-20 15:08 | Outpatient (BNVA) | payer OTHER, SELFPAY | PROVIDERS: PCP Physician Assistant; Visit Provider Psychiatry & Neurology Neurology | DX: G25.0 Essential tremor (principal); R56.9 Unspecified convulsions; G47.9 Sleep disorder, unspecified; F17.210 Nicotine dependence, cigarettes, uncomplicated | CPT/HCPCS: 99212 ==

== ENCOUNTER 2024-02-05 08:32 | Outpatient (AMB) | payer OTHER, SELFPAY ==
--- NOTE | 2024-02-05 08:42 | A.OFFPC_ITS ---
Vital Signs 02/05/24 08:44 Height 5 ft 2 in Weight 211 lb 8 oz BMI 38.7 BP 130/72 Blood Pressure Location Lt brachial Position Sitting Pulse 81 Pulse Source Pulse Oximeter Pulse Oximetry (%) 94 Oxygen Delivery Method Room Air Intake Visit Reasons: f/u COPD/ Parkinson's Intake Note: Patient is here to follow up on COPD, Parkinson's. Barrel Maker Required: No Network Analyst: Not Required per policy Accompanied by: Self / Same As Patient Allergies bee pollen Allergy (Severe, Verified 02/05/24 08:59) Anaphylaxis cat dander [CATS] Allergy (Mild, Verified 02/05/24 08:59) HAYFEVER Chocolate Allergy (Mild, Verified 02/05/24 08:59) HEADACHES dog dander [DOGS] Allergy (Mild, Verified 02/05/24 08:59) HAYFEVER Environmental Allergy (Mild, Uncoded 10/30/23 09:40) HAYFEVER Medication List - Last Reconciled 02/05/24 by Sudhir Martin PA-C acetaminophen (Pain Relief (acetaminophen)) 500 mg PO BID 90 days [adult pullups As directed] albuterol sulfate 90 mcg/actuation 2 puffs inhalation QID 90 days alendronate (Fosamax) 70 mg PO QWEEK 12 weeks amitriptyline 50 mg PO BEDTIME 90 days apixaban (Eliquis) 5 mg PO BID 90 days azelastine 1 spray intranasal BID 90 days back brace As directed baclofen 20 mg PO BEDTIME 90 days [bed pads As directed] cane As directed cholecalciferol (vitamin D3) 50 mcg PO DAILY 90 days clonazepam 0.5 mg PO BID compr.stocking,knee,long,large As directed diaper,brief,adult,disposable As directed diphenhydramine HCl (Banophen) 25 mg PO Q8H 90 days disposable gloves As directed epinephrine (EpiPen 2-Kamaljit) 0.3 mg (0.3 mL) IM ONCE PRN 30 days fluticasone propion-salmeterol 115-21 mcg/actuation 2 puffs inhalation BID 30 days folic acid 1 mg PO DAILY 90 days furosemide 20 mg PO DAILY 14 days gabapentin 400 mg PO BEDTIME gabapentin 200 mg (2 x 100 mg) PO BEDTIME 90 days humidifiers (Cool Mist Humidifier) As directed incontinence pad, liner, disp As directed leg brace (Knee Support Brace) As directed loperamide 2 mg PO Q8H PRN 7 days loratadine-pseudoephedrine 10-240 mg ER (Claritin-D 24 Hour) 1 tab PO DAILY 90 days magnesium oxide 400 mg PO BEDTIME 90 days miscellaneous medical supply 1 ea miscellaneous DAILY 99 days montelukast 10 mg PO DAILY 90 days omeprazole 20 mg PO DAILY 90 days prednisone 40 mg (2 x 20 mg) PO DAILY 4 days primidone 100 mg (2 x 50 mg) PO BID 90 days [soft neck brace As directed] topiramate (Topamax) 200 mg PO BID 30 days triamcinolone acetonide 0.5% 1 appl topical DAILY 15 days vitamin B complex 1 tab PO DAILY 90 days walker (Ultra-Light Rollator misc) As directed zolpidem 10 mg PO BEDTIME Tobacco use date assessed: 02/05/24 Dental Screening Dental Screen Date: 02/05/24 Did you have a dental visit in the last 12 months?: Yes Did you have a dental problem in the last 6 months where you did not have access to dental care?: No Was dental information given to patient?: Patient has dentist HPI f/u COPD/ Parkinson's HPI Details Patient is a 63 -year-old female here today for a follow-up visit l. ? Patient has a past medical history significant for polysubstance abuse, spinal stenosis, anxiety, depression, pernicous anemia, DVT ( left leg), parkinsons.? Tobacco dependency: Patient continues to smoke. She is now off of Chantix as it was ineffective for her. Today in office does pulmonary rhonchi on physical exam. No fevers or chills. Denies any productive cough PLAN: Advised to get chest x-ray. Will supply patient with a prednisone taper .. Obese: report major dietary indiscretion. Has gained a significant amount of weight since last office visit. She is interested in higher dose of Topamax as she has been told that this may help her with weight loss. .. Allergic rhinitis:? Continues to suffer allergy symptoms. Continues on B enadryl, nasal sprays and decongestants.? She reports the changes seasons are difficult. She reports she was on allergy injections in the past which were helping her with rhinitis and sinusitis. She would like to be referred back to ENT specialist for injection therapy. .. Sz disorder: Continues on topmax , denies any recent episodes of seizure activity. .. Lumbar Spinal stenosis: Is seeing pain speacialist here at [facility] and has started on SPRINT Spinal stimulator which has offered her excellent pain relief in her lumbar spine..? She is now wearing a lumbar support brace. Has followed up with a neurosurgeon for her neck pain though was not a surgical candidate.? Currently a recovering addict and does not use any pain medication besides Tylenol at this time. .. Parkinsons: Sees a neurologist, has been started on primidone. Apparently carbidopa levodopa has been discontinued. ? Also followed for a seizure disorder and denies any recent seizure activity. .? She reports her balance has gotten wo rse, does report recent fall.? She is interested in seeing a physical therapist for balance training. .. Heart? murmur/ Atypical chest pain : IS followed by [employer] Specialist ( Dr. Alvares ), Cardiac stress test normal, ECHO showing low/ normal EF. .. h/o polysubtance abuse ( alcohol, crack cocain) : Has been sober since 2013.? She is in a fellowship (AA/ NA) . Major depressive disorder/ generalized anxiety disorder:? She is followed by a new psychiatrist now who manages her mental health medications. She feels her depression is fairly well managed at this time.?? She reports he continues to have trouble with sleep even with use of trazodone, Benadryl and gabapentin at night.? She is interested in restarting amitriptyline before bed for sleep. ? [facility] Medical History (Updated 02/05/24 @ 09:04 by Sudhir Martin PA-C) COPD exacerbation COVID-19 History of abnormal cervical Pap smear Spinal stenosis, cervical region Peripheral polyneuropathy Spondylosis of cervical spine Spondylosis of lumbar spine Cocaine abuse Alcohol abuse Hepatitis HIV (human immunodeficiency virus infection) Heart murmur History of cocaine abuse History of heroin abuse Hydradenitis Former cigarette smoker Recovering alcoholic GERD (gastroesophageal reflux disease) Lumbago with sciatica, left side Arthritis Back pain On anticoagulant therapy DVT (deep venous thrombosis) History of celiac disease Anxiety Panic attacks Depression PTSD (post-traumatic stress disorder) Parkinson disease History of frequent headaches Seizure Asthma Surgical History H/O excision of ganglion cyst Hx of esophagogastroduodenoscopy History of carpal tunnel surgery of left wrist Hx of nasal septoplasty History of hemorrhoidectomy Hx of colonoscopy Family History Mother No problems noted. Social History Housing: Apartment Are you a primary youth career specialist to a significant other at home: No Do you presently have visiting nurse or other home services: Yes Alcohol intake: former Year quit: 2003 Comment: was seen [facility]-called for note Patient Tobacco Use Status: Current everyday Tobacco user Tobacco use type: Cigarette Cigarette Packs Per Day: 0.5 Cigarettes Per Day: 7 Years Smoked: 45 e-Cigarette/Vaping Use: Former Use Second Hand Smoke Exposure: No service: No Current occupational status: disabled Cognitive needs: Yes (back brace) Hearing needs: No Vision needs: Yes Questionnaire PHQ-9 Over the last 2 weeks, how often have you been bothered by any of the following problems? 1. Little interest or pleasure in doing things: not at all 2. Feeling down, depressed, or hopeless: several days (current in treatment and taking medication) 3. Trouble falling or staying asleep, or sleeping too much: not at all 4. Feeling tired or having little energy: not at all 5. Poor appetite or overeating: not at all 6. Feeling bad about yourself - or that you are a failure or have let yourself or your family down: not at all 7. Trouble concentrating on things, such as reading the newspaper or watching television: not at all 8. Moving or speaking so slowly that other people could have noticed. Or the opposite - being so fidgety or restless that you have been moving around a lot more than usual: not at all 9. Thoughts that you would be better off or of hurting yourself in some way: not at all Total score: 1 Depression Screening Interpretation: Negative Depression Screening Done: Yes 29767 - PHQ-9 Billing: Yes Source: Developed by Drs. Boris Garcia, Qian B.Hector Moore and colleagues, with an educational miguel a from [employer]. Thrive Questionnaire Date Thrive assessed: 02/05/24 I am a: Patient What is your living situation today?: I have a steady place to live Within the past 12 months, did the food you bought not last and you didn't have the money to get more?: Never true Within the past 12 months, did you worry whether your food would run out before you got money to buy more?: Never true Do you have trouble paying for medicines?: No Do you have trouble getting transportation to medical appointments?: No Do you have trouble paying your heating and electricity bill?: No Do you have trouble taking care of your child, family member or friend?: No Do you have trouble with day-to-day activities such as bathing, preparing meals, shopping, managing finances, etc.?: No Are you currently unemployed and looking for a job?: No Are you interested in more education?: No Currently or been in a relationship where the following occur: no concerns reported THRIVE Score: 0 AUDIT C Alcohol Use Questionnaire (AUDIT-C) 1. How often do you have a drink containing alcohol?: Never Total Score: 0 LUISA-7 AMB Questionnaire LUISA-7 Date LUISA - 7 assessed: 02/05/24 Feeling nervous, anxious, or on edge: 1 = Several days (current in treatment and taking medication) Not being able to stop or control worryin = Not at all Worrying too much about different things: 0 = Not at all Trouble relaxin = Not at all Being so restless that it is hard to sit still: 0 = Not at all Becoming easily annoyed or irritable: 0 = Not at all Feeling afraid as if something awful might happen: 0 = Not at all Total LUISA-7 score (0-4 normal; 5-9 mild; 10-14 moderate; 15-21 severe): 1 Source: Developed by Drs. Boris Garcia, Hector Lipscomb and colleagues, with an educational miguel a from [employer]. LUISA-7 Assessment Billing LUISA-7 Assessment Tool: LUISA-7 Assessment 21551 Review of Systems Const Denies headache(s) Eyes Denies loss of vision ENT Denies vertigo, Denies dizziness, Denies headache(s) and Denies sore throat Card Denies chest pain, Denies leg edema and Denies lightheadedness Resp Denies cough, Denies hemoptysis and Denies wheezing GI Denies abdominal pain, Denies melena, Denies constipation, Denies diarrhea and Denies vomiting Denies urinary frequency, Denies dysuria and Denies urinary urgency Musc Denies arthralgias, Denies joint swelling, Denies numbness and Denies tingling Neuro Denies Abnormal speech present, Denies behavioral changes, Denies vertigo, Denies dizziness, Denies headache(s), Denies loss of vision, Denies memory loss, Denies numbness and Denies tingling Psych Denies anxiety, Denies behavioral changes, Denies depression, Denies memory loss and Denies panic attacks Carlos/Lymph Denies easy bleeding and Denies easy bruising Aller/Immun Denies wheezing Physical exam (Primary Care) Vital Signs: Last Vital Signs Pulse 81 02/05/24 08:44 BP 130/72 02/05/24 08:44 Pulse Ox 94 02/05/24 08:44 Oxygen Delivery Method Room Air 02/05/24 08:44 BMI result Body Mass Index 38.7 Tobacco/Smoking Status: Tobacco use Status Tobacco use date assessed 02/05/24 02/05/24 08:56 Patient Tobacco Use Status Current everyday Tobacco 02/05/24 08:56 Tobacco use type Cigarette 02/05/24 08:56 e-Cigarette/Vaping Use Former Use 02/05/24 08:56 PHQ-9: PHQ-9 Score PHQ-9: Total score 1 02/05/24 08:56 Depression Screening Interpretation: Negative Thrive Assessment: Date of Thrive Assessment Date Thrive assessed 02/05/24 02/05/24 08:56 Currently or been in a relationship where the following occur: no concerns reported Const General: healthy appearing, no acute distress, alert and awake Nutritional Appearance: well nourished Orientation/consciousness: oriented to person, oriented to place and oriented to time HENMT Ears: TM's normal bilaterally General nose exam: Normal nasal mucous membranes and turbinates present Eyes Conjunctivae: conjunctivae normal Sclerae: sclerae normal Pupils: Equal, round and reactive pupils present Neck Neck: Yes no lymphadenopathy and Yes no JVD Thyroid: Thyroid normal Carotids: no bruits Resp Effort & Inspection: normal respiratory effort and not tachypneic Auscultation: no crackles, no rales, no rhonchi and no wheezes Cardio Rate: regular rate Rhythm: regular rhythm Heart sounds: no murmurs and normal S1 and S2 GI Palpation (GI): Soft to palpation, nontender, no hepatomegaly and no splenomegaly Auscultation: normal bowel sounds Skin General skin exam: no rashes or lesions noted and dry skin Neuro General: oriented to person, oriented to place and oriented to time Cranial nerves: Yes Equal, round and reactive pupils present Speech: No Abnormal speech present Gait exam (Neuro): Normal gait present Motor exam (neuro): no tremor noted Extrem Right upper extremity: full ROM Left upper extremity: full ROM Right lower extremity: full ROM; no edema Left lower extremity: full ROM; no edema Psych Mental Status: mental status grossly normal Speech and movement: Normal speech and movement present Affect: normal affect Attitude: cooperative Thought process: Normal thought process present Assessment and Plan Assessment & Plan (1) HTN (hypertension): Code(s): I10 - Essential (primary) hypertension Qualifiers: Hypertension type: primary hypertension Qualified Code(s): I10 - Essential (primary) hypertension Plan: Patient's blood pressure acceptable today in office. Will continue her current dose of antihypertensive medication with goal blood pressure to be below 140/90 (2) Parkinson disease: Code(s): G20 - Parkinson's disease Qualifiers: Dyskinesia presence: with dyskinesia Fluctuating manifestations: without fluctuating manifestations Qualified Code(s): G20.B1 - Parkinson's disease with dyskinesia, without mention of fluctuations Plan: Patient continues to follow a neurologist. Seems to have been taken off carbidopa levodopa. She continues to have a tremor has gotten better since getting higher dose of primidone. She has experienced many falls over the last several months and attributes this to her Parkinson's tremor. (3) DVT (deep venous thrombosis): Comment: left groin- leg - On Eliquis Code(s): I82.409 - Acute embolism and thrombosis of unspecified deep veins of unspecified lower extremity Qualifiers: DVT location: lower extremity Affected thrombotic vein of extremity: other lower extremity vein Chronicity: unspecified Laterality: left Qualified Code(s): I82.492 - Acute embolism and thrombosis of other specified deep vein of left lower extremity Plan: Continues on Eliquis without any overt signs of bleeding. (4) Tobacco dependence: Code(s): F17.200 - Nicotine dependence, unspecified, uncomplicated Plan: Patient does understand she needs to quit smoking she has tried Chantix though was not effective for her. (5) Obese: Code(s): E66.9 - Obesity, unspecified Qualifiers: Obesity type: due to excess calories Obesity classification: adult class 2 (BMI 35 - 39.9) Serious obesity comorbidity presence: with serious comorbidity Body mass index: BMI 35.0-35.9 Qualified Code(s): E66.01 - Morbid (severe) obesity due to excess calories; Z68.35 - Body mass index [BMI] 35.0- 35.9, adult Plan: Has noted weight gain since last office visit. She does report some dietary indiscretion. . (6) COPD (chronic obstructive pulmonary disease): Code(s): J44.9 - Chronic obstructive pulmonary disease, unspecified Qualifiers: COPD type: chronic bronchitis Chronic bronchitis type: simple Qualified Code(s): J41.0 - Simple chronic bronchitis Plan: Patient is establishing care with a interior wirer. She continues with p.r.n. use of her albuterol inhaler and maintenance inhaler daily. Unfortunately continues to smoke cigarettes. She does understand she needs to completely quit smoking cigarettes (7) MDD (major depressive disorder), recurrent episode, moderate: Code(s): F33.1 - Major depressive disorder, recurrent, moderate Plan: Patient has a history of depression. She continues on amitriptyline, zolpidem. She does have a sobriety instructional coach counselor she speaks on a regular basis (8) Seizure: Comment: Pt states none for years 30-40 years ago Code(s): R56.9 - Unspecified convulsions Plan: Patient followed by Neurology. Has not had any tonic-clonic, grand mal seizure. She does report some of the tics that she has as seizure activity. (9) Cocaine abuse: Code(s): F14.10 - Cocaine abuse, uncomplicated Plan: in remission Medications: Changed From furosemide 20 mg PO DAILY 14 days 14 tabs 0RF M79.89 - Other specified soft tissue disorders To furosemide 20 mg PO Q OTHER DAY 30 days 15 tabs 3RF M79.89 - Other specified soft tissue disorders From topiramate (Topamax) 200 mg PO BID 30 days 60 tabs 3RF F41.1 - Generalized anxiety disorder To topiramate (Topamax) 200 mg PO BID 90 days 180 tabs 3RF F41.1 - Generalized anxiety disorder Refilled loratadine-pseudoephedrine 10-240 mg ER (Claritin-D 24 Hour) 1 tab PO DAILY 90 days 90 tabs 1RF J30.1 - Allergic rhinitis due to pollen triamcinolone acetonide 0.5% 1 appl topical DAILY 15 days 15 grams 3RF L30.9 - Dermatitis, unspecified azelastine administer into each nostril 1 spray intranasal BID 90 days 3 ea 3RF J01.10 - Acute frontal sinusitis, unspecified folic acid 1 mg PO DAILY 90 days 90 tabs 1RF E53.8 - Deficiency of other specified B group vitamins Discontinued prednisone Discontinued Reason: Doctor's Order 40 mg (2 x 20 mg) PO DAILY 4 days 8 tabs 0RF J44.1 - Chronic obstructive pulmonary disease with (acute) exacerbation Coding Level of Care Code Est Pt Level 4 (55571) Diagnoses Primary hypertension I10 Hypertension type: primary hypertension Parkinson's disease with dyskinesia without fluctuating manifestations G20.B1 Dyskinesia presence: with dyskinesia Fluctuating manifestations: without fluctuating manifestations Deep vein thrombosis (DVT) of other vein of left lower extremity, unspecified chronicity I82.492 DVT location: lower extremity Affected thrombotic vein of extremity: other lower extremity vein Chronicity: unspecified Laterality: left Tobacco dependence F17.200 Class 2 severe obesity due to excess calories with serious comorbidity and body mass index (BMI) of 35.0 to 35.9 in adult E66.01; Z68.35 Obesity type: due to excess calories Obesity classification: adult class 2 (BMI 35 - 39.9) Serious obesity comorbidity presence: with serious comorbidity Body mass index: BMI 35.0-35.9 Simple chronic bronchitis J41.0 COPD type: chronic bronchitis Chronic bronchitis type: simple MDD (major depressive disorder), recurrent episode, moderate F33.1 Seizure R56.9 Cocaine abuse F14.10 Additional Codes LUISA-7 Assessment Billing - LUISA-7 Assessment Tool: LUISA-7 Assessment 30346 ([id number])
[2024-02-05 08:44] VITALS: BP 130/72; PULSE 81; O2SAT 94; BMI 38.7
== END 2024-02-05 09:28 | disposition home or self-care (01) ==
PROVIDERS: PCP Physician Assistant; Visit Provider Physician Assistant
DX: I82.492 Acute embolism and thrombosis of other specified deep vein of left lower extremity (principal); E66.01 Morbid (severe) obesity due to excess calories; J41.0 Simple chronic bronchitis; F33.1 Major depressive disorder, recurrent, moderate; R56.9 Unspecified convulsions; F14.10 Cocaine abuse, uncomplicated; I10 Essential (primary) hypertension; F17.200 Nicotine dependence, unspecified, uncomplicated; G20.B1 Parkinson's disease with dyskinesia, without mention of fluctuations; Z68.35 Body mass index [BMI] 35.0-35.9, adult
CPT/HCPCS: 99214

== ENCOUNTER 2024-02-14 17:07 | Emergency (ER) | payer OTHER, SELFPAY ==
--- NOTE | ~2024-02-14 | XR_ITS ---
EXAMINATION: X-ray bilateral elbows CLINICAL INFORMATION: Fall, pain. COMPARISON: None available. TECHNIQUE: 3 views of each elbow. FINDINGS: The bones and soft tissues are normal. No fracture or joint effusion. Alignment is anatomic. Joint spaces are maintained. XR/XR elbow LT min 3V IMPRESSION: Normal radiographic examination of the bilateral elbows.
--- NOTE | ~2024-02-14 | XR_ITS ---
EXAMINATION: X-ray bilateral elbows CLINICAL INFORMATION: Fall, pain. COMPARISON: None available. TECHNIQUE: 3 views of each elbow. FINDINGS: The bones and soft tissues are normal. No fracture or joint effusion. Alignment is anatomic. Joint spaces are maintained. XR/XR elbow RT min 3V IMPRESSION: Normal radiographic examination of the bilateral elbows.
--- NOTE | ~2024-02-14 | CT_ITS ---
EXAMINATION: CT LUMBAR SPINE WITHOUT CONTRAST CLINICAL INFORMATION: Fall onto back. Right lumbar pain. COMPARISON: X-ray lumbar spine dated 12/07/2020. TECHNIQUE: Multidetector helical imaging acquired in the axial plane with generation of reformatted acquisitions. This CT examination was performed using dose optimization techniques as appropriate, variously including the following: *Automated exposure control. *Adjustment of mA and/or kV according to patient size (this includes techniques or standardized protocols for targeted exams where dose is matched to indication/reason for exam; i.e. extremities or head). *Use of iterative reconstruction technique. DLP; 472 mGy-cm FINDINGS: No acute fracture is visible. There is advanced facet arthropathy at the L5-S1 level. No significant disc space narrowing is evident. Generalized bony demineralization noted. At the L1-L2 level, there is a very mild disc bulge and mild facet arthropathy without central canal stenosis or foraminal narrowing. At the L2-L3 level, no significant disc pathology evident. There is mild facet arthrosis without foraminal encroachment. At the L3-L4 level, there is a generalized disc bulge and mild posterior subluxation with mild facet arthropathy. No central canal stenosis evident. The neural foramina are patent. At the L4-L5 level, there is a mild disc bulge and [id number] facet arthropathy with bulging disc mildly encroaching upon the neural foramina. Mild central canal stenosis noted. At the L5-S1 level, there is exuberant facet arthropathy and moderate central canal stenosis with a mild disc bulge. Facet spurring encroaches upon the left lateral recess impressing upon the left S1 nerve root. No significant foraminal narrowing evident. There are partially visualized moderate degenerative changes of the right sacroiliac joint with marginal sclerosis and vacuum phenomenon. Mild atherosclerotic wall calcifications noted in the abdominal aorta. Nonspecific bilateral perinephric stranding is visible. CT/CT lumbar spine wo IV con IMPRESSION: No acute traumatic findings. Severe facet arthropathy and moderate central canal stenosis at the L5-S1 level. Osseous spurring encroaches upon the left lateral recess, impressing upon the left S1 nerve root. Milder spondylitic changes elsewhere in the lumbar spine as described. Moderate degenerative changes and vacuum phenomenon of the right sacroiliac joint.
[2024-02-14 17:10] VITALS: BP 158/88; PULSE 85; O2SAT 96
[2024-02-14 17:16] VITALS: BP 186/82; PULSE 80; RESP 18; TEMP 36.6; O2SAT 98; BMI 37.8
--- NOTE | 2024-02-14 17:59 | ED_ITS ---
HPI - Fall General Chief Complaint: Fall Stated Complaint: swatting a bee and fell on curb, 09/27 back pain Time Seen by Provider: 02/14/24 17:27 Source: patient, EMS, RN notes reviewed and old records reviewed Mode of arrival: EMS Limitations: no limitations History of Present Illness HPI Narrative: 63 year old female with pmhx significant for COPD, asthma, current tobacco smoker, hyperkalemia, HIV, polysubstance abuse, etoh abuse, GERD, cervical spinal stenosis, lumbar spine spondylosis, sciatica, DVT on eliquis, peripheral neuropathy, anxiety, panic attacks, PTSD, epilepsy, and parkinson disease presents to the ED today via EMS from home for evaluation of left lower back pain s/p mechanical fall. She admits to swatting at a bee while smoking a cigarette outside, when she lost her balance and fell backward. Reports falling onto her buttocks/low back. Denies head strike or LOC. she is on Eliquis. Reports difficulty ambulating causing her to call EMS. She did not get stung by the bee. Denies numbness/tingling/weakness of the lower extremities, bowel or bladder incontinence or retention, saddle anesthesia. Related Data Home Medications Medication Instructions Recorded Confirmed clonazepam 1 mg tablet 0.5 mg PO BID 10/31/22 02/05/24 zolpidem 10 mg tablet 10 mg PO BEDTIME 11/20/23 02/05/24 Previous Rx's Medication Instructions Recorded disposable gloves #1,000 ea 04/02/23 incontinence pad, liner, disp #200 ea 04/02/23 bed pads #120 ea 04/12/23 adult pullups #120 ea 04/25/23 diaper,brief,adult,disposable #120 ea 05/20/23 epinephrine 0.3 mg/0.3 mL 0.3 mg (0.3 mL) IM ONCE PRN 05/29/23 injection, auto-injector (EpiPen anaphylaxis 30 days #2 ea 2-Kamaljit) walker (Ultra-Light Rollator misc) #1 ea 07/03/23 primidone 50 mg tablet 100 mg (2 x 50 mg) PO BID 90 days 07/23/23 #720 tabs gabapentin 400 mg capsule 400 mg PO BEDTIME #90 caps 08/19/23 alendronate 70 mg tablet (Fosamax) 70 mg PO QWEEK 12 weeks #12 tabs 09/12/23 albuterol sulfate 90 mcg/actuation 2 puff inhalation QID Wheezing 90 09/19/23 aerosol inhaler days #3 inhalers cholecalciferol (vitamin D3) 50 50 mcg PO DAILY 90 days #90 caps 10/01/23 mcg (2,000 unit) capsule vitamin B complex 1 tab PO DAILY 90 days #90 tabs 10/03/23 apixaban 5 mg tablet (Eliquis) 5 mg PO BID 90 days #180 tabs 10/07/23 baclofen 20 mg tablet 20 mg PO BEDTIME 90 days #90 tabs 10/07/23 magnesium oxide 400 mg PO BEDTIME 90 days #90 caps 10/07/23 omeprazole 20 mg capsule,delayed 20 mg PO DAILY 90 days #90 caps 10/07/23 release miscellaneous medical supply 1 ea miscellaneous DAILY 99 days 10/28/23 #1 ea montelukast 10 mg tablet 10 mg PO DAILY 90 days #90 tabs 10/30/23 amitriptyline 50 mg tablet 50 mg PO BEDTIME 90 days #90 tabs 11/07/23 compr.stocking,knee,long,large #2 ea 11/07/23 cane #1 ea 11/13/23 diphenhydramine HCl 25 mg capsule 25 mg PO Q8H allergies 90 days 11/13/23 (Banophen) #270 caps humidifiers (Cool Mist Humidifier) #1 ea 11/13/23 back brace #1 ea 12/02/23 soft neck brace #1 ea 12/02/23 gabapentin 100 mg capsule 200 mg (2 x 100 mg) PO BEDTIME 90 12/23/23 days #180 caps acetaminophen 500 mg tablet (Pain 500 mg PO BID for fever 90 days 01/14/24 Relief (acetaminophen)) #180 tabs loperamide 2 mg capsule 2 mg PO Q8H PRN loose stool 7 days 01/27/24 #21 caps leg brace (Knee Support Brace) #1 ea 01/29/24 azelastine 137 mcg (0.1 %) nasal 1 spray intranasal BID 90 days #3 02/05/24 spray aerosol ea folic acid 1 mg tablet 1 mg PO DAILY 90 days #90 tabs 02/05/24 furosemide 20 mg tablet 20 mg PO Q OTHER DAY 30 days #15 02/05/24 tabs loratadine-pseudoephedrine ER 10 1 tab PO DAILY 90 days #90 tabs 02/05/24 mg-240 mg tablet,extended [id number] (Claritin-D 24 Hour) topiramate 200 mg tablet (Topamax) 200 mg PO BID 90 days #180 tabs 02/05/24 triamcinolone acetonide 0.5 % 1 appl topical DAILY 15 days #15 02/05/24 topical cream grams fluticasone propionate 115 2 puff inhalation BID 30 days #12 02/09/24 mcg-salmeterol 21 mcg/actuation grams HFA inhaler Allergies Allergy/AdvReac Type Severity Reaction Status Date / Time bee pollen Allergy Severe Anaphylaxis Verified 02/14/24 17:18 cat dander [CATS] Allergy Mild HAYFEVER Verified 02/14/24 17:18 Chocolate Allergy Mild HEADACHES Verified 02/14/24 17:18 dog dander [DOGS] Allergy Mild HAYFEVER Verified 02/14/24 17:18 Environmental Allergy Mild HAYFEVER Uncoded 10/30/23 09:40 Review of Systems Review of Systems: Constitutional: No fever, chills, fatigue, night sweats, weight changes ENT/Mouth: No ear pain, hearing loss, nasal congestion, sinus pain, rhinorrhea, sore throat Eyes: No eye pain, swelling, redness, vision changes, discharge Cardio: No chest pain, palpitations, GARZA, orthopnea, peripheral edema Pulm: No SOB, cough, sputum, wheezing, dyspnea, hemoptysis GI: No nausea, vomiting, hematemesis, abdominal pain, diarrhea, constipation, hematochezia, melena : No irregular bleeding, dysuria, frequency, urgency, hesitancy, hematuria, flank pain, urinary flow changes, urinary incontinence or retention MSK: +back pain, No neck pain, joint pain, myalgias Skin: No lesions, rashes Neuro: No weakness, numbness, paresthesias, LOC, dizziness, headache All other systems reviewed and are negative. [facility], [facility] Past Medical History Medical History (Updated 02/14/24 @ 18:52 by OUMAR Young) COPD exacerbation COVID-19 History of abnormal cervical Pap smear Spinal stenosis, cervical region Peripheral polyneuropathy Spondylosis of cervical spine Spondylosis of lumbar spine Cocaine abuse Alcohol abuse Hepatitis HIV (human immunodeficiency virus infection) Heart murmur History of cocaine abuse History of heroin abuse Hydradenitis Former cigarette smoker Recovering alcoholic GERD (gastroesophageal reflux disease) Lumbago with sciatica, left side Arthritis Back pain On anticoagulant therapy DVT (deep venous thrombosis) History of celiac disease Anxiety Panic attacks Depression PTSD (post-traumatic stress disorder) Parkinson disease History of frequent headaches Seizure Asthma Surgical History H/O excision of ganglion cyst Hx of esophagogastroduodenoscopy History of carpal tunnel surgery of left wrist Hx of nasal septoplasty History of hemorrhoidectomy Hx of colonoscopy Family History Family History Mother No problems noted. Social History Social History Housing: Apartment Are you a primary childbirth and infant care teacher to a significant other at home: No Do you presently have visiting nurse or other home services: Yes Alcohol intake: former Year quit: 2003 Comment: was seen at [facility]-called for note Patient Tobacco Use Status: Current everyday Tobacco user Tobacco use type: Cigarette Cigarette Packs Per Day: 0.5 Cigarettes Per Day: 7 Years Smoked: 45 e-Cigarette/Vaping Use: Former Use Second Hand Smoke Exposure: No Advance Directives: No Advance Directives Information Provided: No service: No Current occupational status: disabled Cognitive needs: Yes (back brace) Hearing needs: No Vision needs: Yes Physical Exam Vital Signs: Vital Signs: Last Vital Signs Temp 98 F 02/14/24 17:16 Pulse 80 02/14/24 17:16 Resp 18 02/14/24 17:16 BP 186/82 H 02/14/24 17:16 Pulse Ox 98 02/14/24 17:16 O2 Del Method Room Air 02/14/24 17:16 BMI result Body Mass Index 37.8 Patient hypertensive, afebrile Const: Other: + lying on her right side as she has lef t lower back pain General: cooperative, healthy appearing, comfortable, no acute distress, alert, awake and Physically active Orientation/consciousness: patient oriented x3 HEENT: Head: Yes normal to inspection, Yes No palpable skull fracture present, Yes normocephalic and Yes atraumatic Eyes: General: appearance normal, both eyes and all related structures Pupils: Equal, round and reactive pupils present EOM: EOMs intact bilaterally Neck: Other: + no cervical midline spinous tenderness or step-off deformity. Neck: Yes normal visual inspection, Yes full ROM and Yes no meningeal signs Chest: Chest palpation & inspection: normal inspection of the chest and normal palpation of entire chest wall Resp: Effort & Inspection: normal respiratory effort Auscultation: clear to auscultation bilaterally Cardio: Rate: regular rate Rhythm: regular rhythm GI: Inspection: Yes normal to inspection Palpation (GI): Soft to palpation and nontender : General: Yes no CVA tenderness Back/Spine/Pelvis: Other: + Left lumbar paraspinal muscles tender to palpation without palpable mass, warmth or fluctuance. There is no midline spinous tenderness or step-off deformity. No CVAT. Unable to assess ambulation at this time due to pain. 2+ PT/DP pulses bilaterally. 2+ patellar DTRs bilaterally. Back: no CVA tenderness Neuro: Other: Strength 5/5 intact throughout.? No saddle anesthesia.? Sensation intact to light touch.? Neurovascular intact distally.? General: patient oriented x3, gait normal and no meningeal signs Cranial nerves: Yes Equal, round and reactive pupils present Gait exam (Neuro): Normal gait present Extrem: General: Yes normal to inspection, Yes full ROM, Yes capillary refill normal and Yes no joint enlargement Course Course Course Narrative: 1822-- Patient now endorsing bilateral elbow pain. She states she may have hit her elbows during the fall. I have re-evaluated her and she has full ROM to both elbows. She is using both upper extremities to eat and drink. She is also pulling herself up off the bed. No palpable tenderness or deformities. No overlying skin changes, abrasions, joint edema. X-rays ordered to evaluate pain although likely just contusion. 1909-- Patient stable at the end of my shift. Sign out given to my colleague, Hermes RODRIGUEZ, pending imaging reads and disposition. Reevaluation(s) Reevaluation #1: Patient left the ED without completing treatment. Medications Administered Discontinued Medications Generic Name Dose Route Start Last Admin Trade Name Freq PRN Reason Stop Dose Admin Acetaminophen 975 mg 02/14/24 17:34 02/14/24 18:00 Acetaminophen 325 Mg Tablet PO 02/14/24 17:35 975 mg ONCE ONE Administration Cyclobenzaprine HCl 10 mg 02/14/24 17:34 02/14/24 18:00 Cyclobenzaprine Hcl 10 Mg Tablet PO 02/14/24 17:35 10 mg ONCE ONE Administration Lidocaine 1 patch 02/14/24 17:34 02/14/24 18:01 Lidocaine 4 % Patch Adh..Patch TRANSDERMA 02/14/24 17:35 1 patch ONCE ONE Administration Protocol Medical Decision Making Medical Decision Making MDM Narrative: 63 year old female with pmhx significant for COPD, asthma, current tobacco smoker, hyperkalemia, HIV, polysubstance abuse, etoh abuse, GERD, cervical spinal stenosis, lumbar spine spondylosis, sciatica, DVT on eliquis, peripheral neuropathy, anxiety, panic attacks, PTSD, epilepsy, and parkinson disease presents to the ED today via EMS from home for evaluation of left lower back pain s/p mechanical fall. Patient hypertensive, vitals otherwise WNL. She is nontoxic-appearing and in no acute distress. Lying on her right side due to left lower back pain. Left lumbar paraspinal muscles tender to palpation without palpable mass, warmth or fluctuance. There is no midline spinous tenderness or step-off deformity. No CVAT. Unable to assess ambulation at this time due to pain. 2+ PT/DP pulses bilaterally. 2+ patellar DTRs bilaterally. Differential diagnosis includes muscle sprain/strain, fracture, subluxation, disc herniation, sciatica, contusion. Unlikely cord compression, cauda equina, epidural abscess. Plan for imaging, pain control and disposition. Differential Diagnosis Differential Diagnoses: The differential diagnosis associated with the presentation includes as above Admission/Observation Not indicated. Independent Interpretation I performed an independent interpretation of an: Plain X-Ray and CT Scan Interpretation: I have reviewed xray results and agree with radiologist's interpretation. I have reviewed CT results and agree with radiologist's interpretation. Radiology Impression Discussion of test interpretation with radiology: I have reviewed the radiologist's reading. Radiologist Impression: EXAMINATION: CT LUMBAR SPINE WITHOUT CONTRAST CLINICAL INFORMATION: Fall onto back. Right lumbar pain. COMPARISON: X-ray lumbar spine dated 12/07/2020. TECHNIQUE: Multidetector helical imaging acquired in the axial plane with generation of reformatted acquisitions. This CT examination was performed using dose optimization techniques as appropriate, variously including the following: *Automated exposure control. *Adjustment of mA and/or kV according to patient size (this includes techniques or standardized protocols for targeted exams where dose is matched to indication/reason for exam; i.e. extremities or head). *Use of iterative reconstruction technique. DLP; 472 mGy-cm FINDINGS: No acute fracture is visible. There is advanced facet arthropathy at the L5-S1 level. No significant disc space narrowing is evident. Generalized bony demineralization noted. At the L1-L2 level, there is a very mild disc bulge and mild facet arthropathy without central canal stenosis or foraminal narrowing. At the L2-L3 level, no significant disc pathology evident. There is mild facet arthrosis without foraminal encroachment. At the L3-L4 level, there is a generalized disc bulge and mild posterior subluxation with mild facet arthropathy. No central canal stenosis evident. The neural foramina are patent. At the L4-L5 level, there is a mild disc bulge and [id number] facet arthropathy with bulging disc mildly encroaching upon the neural foramina. Mild central canal stenosis noted. At the L5-S1 level, there is exuberant facet arthropathy and moderate central canal stenosis with a mild disc bulge. Facet spurring encroaches upon the left lateral recess impressing upon the left S1 nerve root. No significant foraminal narrowing evident. There are partially visualized moderate degenerative changes of the right sacroiliac joint with marginal sclerosis and vacuum phenomenon. Mild atherosclerotic wall calcifications noted in the abdominal aorta. Nonspecific bilateral perinephric stranding is visible. CT/CT lumbar spine wo IV con IMPRESSION: No acute traumatic findings. Severe facet arthropathy and moderate central canal stenosis at the L5-S1 level. Osseous spurring encroaches upon the left lateral recess, impressing upon the left S1 nerve root. Milder spondylitic changes elsewhere in the lumbar spine as described. Moderate degenerative changes and vacuum phenomenon of the right sacroiliac joint. EXAMINATION: X-ray bilateral elbows CLINICAL INFORMATION: Fall, pain. COMPARISON: None available. TECHNIQUE: 3 views of each elbow. FINDINGS: The bones and soft tissues are normal. No fracture or joint effusion. Alignment is anatomic. Joint spaces are maintained. XR/XR elbow LT min 3V IMPRESSION: Normal radiographic examination of the bilateral elbows. Independent Historian Clinical information obtained from an independent historian. History obtained from or confirmed by: EMS External Record Review External record reviewed: Inpatient record, Office record, Outpatient record, Prior outpatient labs, Prior outpatient radiology, Primary care record and Outside ED record Prescription Management I considered prescription management with: Pain Medication and Other (Flexeril) Chronic Conditions Patient?s care impacted by: Other (Sciatica, degenerative disc disease) Critical Care Time Critical Care Time Critical Care Time: Yes Total Critical Care Time: 40 Attestation: Critical care time in the amount of 40 minutes has been provided to the patient in terms of direct patient care, frequent reevaluation, review and interpretation of medical data and results, and management of potentially life- threatening conditions. This is all outside of any medical procedures. Discharge Plan Discharge Clinical Impression: Lumbar spine strain, Accident due to mechanical fall without injury Patient Disposition: Left W/O Completing Treatment Prescriptions: No Action (DME) disposable gloves Misc See Rx Instructions .Route Qty: 1000 3RF Rx Instructions: As directed (DME) incontinence pad, liner, disp Pad See Rx Instructions .Route Qty: 200 1RF Rx Instructions: As directed (DME) bed pads See Rx Instructions .Route .MEDSUPPLY Qty: 120 11RF Rx Instructions: As directed (DME) adult pullups medium See Rx Instructions .Route .MEDSUPPLY Qty: 120 11RF Rx Instructions: As directed (DME) diaper,brief,adult,disposable Misc See Rx Instructions .Route Qty: 120 0RF Rx Instructions: As directed epinephrine [EpiPen 2-Kamaljit] 0.3 mg/0.3 mL auto-injector 0.3 mg IM ONCE PRN (Reason: anaphylaxis) 30 Days Qty: 2 0RF gabapentin 400 mg capsule 400 mg PO BEDTIME Qty: 90 3RF alendronate [Fosamax] 70 mg tablet 70 mg PO QWEEK 84 Days Qty: 12 1RF albuterol sulfate 90 mcg/actuation HFA aerosol inhaler 2 puff INHALATION QID 90 Days Qty: 3 2RF cholecalciferol (vitamin D3) 50 mcg (2,000 unit) capsule 50 mcg PO DAILY 90 Days Qty: 90 3RF vitamin B complex Tablet 1 tab PO DAILY 90 Days Qty: 90 1RF miscellaneous medical supply Misc 1 ea miscellaneous DAILY 99 Days Qty: 1 0RF (DME) cane Device See Rx Instructions .Route Qty: 1 0RF Rx Instructions: As directed (DME) humidifiers [Cool Mist Humidifier] Misc See Rx Instructions .Route Qty: 1 0RF Rx Instructions: As directed diphenhydramine HCl [Banophen] 25 mg capsule 25 mg PO Q8H 90 Days Qty: 270 3RF (DME) soft neck brace See Rx Instructions .Route .MEDSUPPLY Qty: 1 0RF Rx Instructions: As directed (DME) back brace Misc See Rx Instructions .Route Qty: 1 0RF Rx Instructions: As directed gabapentin 100 mg capsule 200 mg PO BEDTIME 90 Days Qty: 180 2RF acetaminophen [Pain Relief (acetaminophen)] 500 mg tablet 500 mg PO BID 90 Days Qty: 180 2RF loperamide 2 mg capsule 2 mg PO Q8H PRN (Reason: loose stool) 7 Days Qty: 21 3RF (DME) Knee Support Brace Misc See Rx Instructions .Route Qty: 1 0RF Rx Instructions: As directed fluticasone propion-salmeterol 115-21 mcg/actuation HFA aerosol inhaler 2 puff inhalation BID 30 Days Qty: 12 3RF clonazepam 1 mg tablet 0.5 mg PO BID (DME) Ultra-Light Rollator Misc See Rx Instructions .Route Qty: 1 0RF Rx Instructions: As directed Eliquis 5 mg tablet 5 mg PO BID 90 Days Qty: 180 1RF baclofen 20 mg tablet 20 mg PO BEDTIME 90 Days Qty: 90 2RF omeprazole 20 mg capsule,delayed release(DR/EC) 20 mg PO DAILY 90 Days Qty: 90 2RF magnesium oxide 400 mg magnesium capsule 400 mg PO BEDTIME 90 Days Qty: 90 2RF montelukast 10 mg tablet 10 mg PO DAILY 90 Days Qty: 90 1RF Claritin-D 24 Hour 10-240 mg tablet extended release 24 hr 1 tab PO DAILY 90 Days Qty: 90 1RF triamcinolone acetonide 0.5 % cream 1 appl topical DAILY 15 Days Qty: 15 3RF azelastine 137 mcg (0.1 %) aerosol,spray 1 spray intranasal BID 90 Days Qty: 3 3RF Rx Instructions: administer into each nostril furosemide 20 mg tablet 20 mg PO Q OTHER DAY 30 Days Qty: 15 3RF topiramate [Topamax] 200 mg tablet 200 mg PO BID 90 Days Qty: 180 3RF folic acid 1 mg tablet 1 mg PO DAILY 90 Days Qty: 90 1RF amitriptyline 50 mg tablet 50 mg PO BEDTIME 90 Days Qty: 90 1RF (DME) compr.stocking,knee,long,large Misc See Rx Instructions .Route Qty: 2 0RF Rx Instructions: As directed primidone 50 mg tablet 100 mg PO BID 90 Days Qty: 720 3RF zolpidem 10 mg tablet 10 mg PO BEDTIME Discharge Date/Time: 02/14/24 20:15
[2024-02-14] MEDS: Cyclobenzaprine HCl 10 MG TABLET PO (18:00)
[2024-02-14] MEDS: Acetaminophen 325 MG TABLET 975 MG PO (18:00)
[2024-02-14] MEDS: Lidocaine 4 % Patch ADH..PATCH 1 PATCH TRANSDERMA (18:01)
== END 2024-02-14 20:15 | disposition left against medical advice (07) ==
PROVIDERS: Emergency Provider Emergency Medicine Emergency Medical Services; PCP Physician Assistant
DX: S39.012A Strain of muscle, fascia and tendon of lower back, initial encounter (principal); W19.XXXA Unspecified fall, initial encounter; Y93.9 Activity, unspecified; Y92.9 Unspecified place or not applicable; Y99.9 Unspecified external cause status; J44.9 Chronic obstructive pulmonary disease, unspecified; E87.5 Hyperkalemia; G40.909 Epilepsy, unspecified, not intractable, without status epilepticus; F19.90 Other psychoactive substance use, unspecified, uncomplicated; G20.A1 Parkinson's disease without dyskinesia, without mention of fluctuations; B20 Human immunodeficiency virus [HIV] disease; Z79.01 Long term (current) use of anticoagulants
CPT/HCPCS: 72132; 73080; 99282; 99284

== ENCOUNTER 2024-03-24 07:59 | Outpatient (REF) | payer OTHER, SELFPAY ==
--- NOTE | ~2024-03-24 | MM_ITS ---
EXAMINATION: MM SCREENING DIGITAL BREAST TOMOSYNTHESIS, BILATERAL CLINICAL INFORMATION: Screening. Asymptomatic. COMPARISON: Mammography: 02/20/2023, 02/14/2022, 09/22/2020, 09/09/2019 TECHNIQUE: Digital breast tomosynthesis is performed in both the craniocaudal and mediolateral oblique views along with computer-aided detection (CAD). Synthesized 2D images are generated from the tomosynthesis. In addition, a second full-field right MLO was submitted. Study somewhat limited by suboptimal compression bilaterally. FINDINGS: There are scattered areas of fibroglandular density (ACR BI-RADS breast composition Category b). Intramammary lymph nodes in the slightly inferior slightly medial left breast, middle one third, is unchanged from numerous prior exams. This is benign. There are no suspicious masses, suspicious grouped calcifications, or areas of architectural distortion in either breast. The parenchymal pattern is stable from prior exams. No skin or axillary abnormalities. MM/MM tomosynthesis screening BI IMPRESSION: No mammographic evidence of malignancy. ASSESSMENT: BI-RADS BI-RADS 2 - Benign Findings RECOMMENDATION: Routine annual mammography screening. 1 year F/U This examination should not preclude the clinical evaluation of a suspicious palpable abnormality. This patient's information was entered into a reminder system with a target due date for their next mammogram.
[2024-03-24 09:11] LABS: Hematocrit 37.1 % (37.0-47.0); Hemoglobin 12.2 g/dl (12.0-16.0); Mean Corpuscular HGB Conc 32.9 g/dl (31.0-35.0); Mean Corpuscular Hemoglobin 31.6 pg (27.0-33.0); Mean Corpuscular Volume 96.1 fL (80.0-98.0); Mean Platelet Volume 9.5 fL (9.4-12.3); Platelet Count 261 X10*3/uL (160-400); Red Blood Count 3.86 X10*6/uL (4.20-5.50); Red Cell Distribution Width 14.7 % (11.0-16.0); White Blood Count 6.4 X10*3/uL (4.8-10.8)
[2024-03-24 09:54] LABS: Alanine Aminotransferase 24 U/L (0-31); Albumin Level 4.2 g/dL (3.5-5.0); Alkaline Phosphatase 92 U/L (39-117); Anion Gap 14 (12-20); Aspartate Amino Transferase 20 U/L (5-31); Bilirubin Total 0.2 mg/dL (0.0-1.0); Blood Urea Nitrogen 26 mg/dL (9-16); Calcium 9.8 mg/dL (8.4-10.2); Carbon Dioxide 23 mmol/L (22-29); Chloride 110 mmol/L (96-108); Estimated Glomerular Filt Rate 34; Glucose Fasting 96 mg/dL (60-99); Potassium 4.8 mmol/L (3.3-5.1); Sodium 142 mmol/L (135-145); Total Protein 7.9 g/dL (6.5-8.0)
[2024-03-24 10:57] LABS: Folate > 20.0 ng/mL (> or = 4.0); Vitamin B12 292 pg/mL (200-900)
[2024-03-24 12:05] LABS: Creatinine Urine 115.53 mg/dL; Microalbumin Urine < 5.0 mg/L
== END 2024-03-24 08:00 | disposition home or self-care (01) ==
LOC: HO.MAMMO 07:59
PROVIDERS: PCP Physician Assistant; Visit Provider Physician Assistant
DX: Z12.31 Encounter for screening mammogram for malignant neoplasm of breast (principal); J44.1 Chronic obstructive pulmonary disease with (acute) exacerbation; E53.8 Deficiency of other specified B group vitamins; I10 Essential (primary) hypertension
CPT/HCPCS: 36415; 77063; 77067; 80053; 82043; 82570; 82607; 82746; 85027; 99212

== ENCOUNTER → 2024-03-24 08:30 | Outpatient (BNV) | payer OTHER, SELFPAY | PROVIDERS: PCP Physician Assistant; Visit Provider Radiology Diagnostic Radiology | DX: Z12.31 Encounter for screening mammogram for malignant neoplasm of breast (principal) | CPT/HCPCS: 77063; 77067 ==

== ENCOUNTER 2024-03-24 10:04 | Outpatient (AMB) | payer OTHER, SELFPAY ==
[2024-03-24 10:34] VITALS: PULSE 80; O2SAT 95; BMI 29.3
--- NOTE | 2024-03-24 10:34 | MHC.OFFVIS ---
Vital Signs 03/24/24 10:34 Height 5 ft 2 in Weight 160 lb BMI 29.3 Pulse 80 Pulse Source Pulse Oximeter Pulse Oximetry (%) 95 Oxygen Delivery Method Room Air Intake Visit Reasons: copd Traffic Operations Manager Required: No Allergies bee pollen Allergy (Severe, Verified 03/24/24 10:36) Anaphylaxis cat dander [CATS] Allergy (Mild, Verified 03/24/24 10:36) HAYFEVER Chocolate Allergy (Mild, Verified 03/24/24 10:36) HEADACHES dog dander [DOGS] Allergy (Mild, Verified 03/24/24 10:36) HAYFEVER Environmental Allergy (Mild, Uncoded 03/24/24 10:36) HAYFEVER HPI Comments Details: The patient is here for pulmonary evaluation. The patient is a 63 year woman who has an active smoker and also history of substance abuse presenting with a history of asthma worsening symptoms. The patient states that she does have significant allergies and she has had allergy shots for many years. But then her doctor stopped covering her insurance and therefore she was not able to get allergy shots. She is felt that her respiratory symptoms have gotten worse. She has had more chest tightness and wheezing. She does have an Advair HFA inhaler although she thought that was inhaler for rescue. And also still not feeling well overall. The patient unfortunately continues to smoke cigarettes. She has been able to cut down significantly down to 1 pack lasting 3-4 days. She has been smoking for about 40 years and the patient does qualify for the lung cancer screening program. We did talk about it but at this point the patient is calorie reluctant and therefore will further discuss it during next visit. The patient also significant nasal congestion. She does use Sudafed [id number]. In addition to that has been using nasal sprays. The patient has not been using Afrin per the patient's report. Indeed the patient likely has significant allergies and would potentially benefit from biologic therapy in the near future. For now though will try to optimize respiratory therapy and also her nasal therapy. The patient will have a chest x-ray and PFTs and be evaluated after that. I which point will talk about the lung cancer screening program and we will consider biologic therapy if she has not made it to an shift manager. [facility] Medical History (Updated 03/24/24 @ 13:05 by Cyril Morales MD) Allergies Chronic allergic rhinitis Asthma-COPD overlap syndrome COPD exacerbation COVID-19 History of abnormal cervical Pap smear Spinal stenosis, cervical region Peripheral polyneuropathy Spondylosis of cervical spine Spondylosis of lumbar spine Cocaine abuse Alcohol abuse Hepatitis HIV (human immunodeficiency virus infection) Heart murmur History of cocaine abuse History of heroin abuse Hydradenitis Former cigarette smoker Recovering alcoholic GERD (gastroesophageal reflux disease) Lumbago with sciatica, left side Arthritis Back pain On anticoagulant therapy DVT (deep venous thrombosis) History of celiac disease Anxiety Panic attacks Depression PTSD (post-traumatic stress disorder) Parkinson disease History of frequent headaches Seizure Asthma Surgical History H/O excision of ganglion cyst Hx of esophagogastroduodenoscopy History of carpal tunnel surgery of left wrist Hx of nasal septoplasty History of hemorrhoidectomy Hx of colonoscopy Family History Mother No problems noted. Social History Housing: Apartment Are you a primary healthcare representative to a significant other at home: No Do you presently have visiting nurse or other home services: Yes Alcohol intake: former Year quit: 2003 Comment: was seen at [facility]-called for note Patient Tobacco Use Status: Current everyday Tobacco user Tobacco use type: Cigarette Cigarette Packs Per Day: 0.5 Cigarettes Per Day: 7 Years Smoked: 45 e-Cigarette/Vaping Use: Former Use Second Hand Smoke Exposure: No service: No Current occupational status: disabled Cognitive needs: Yes (back brace) Hearing needs: No Vision needs: Yes Review of Systems Const Denies fever(s) ENT Reports nasal congestion and Reports nasal discharge Card Denies chest pain Resp Reports cough and Reports wheezing GI Reports no additional complaints Musc Reports no additional complaints Skin/Breast Denies rash Neuro Reports no additional complaints Carlos/Lymph Denies lymphadenopathy Aller/Immun Reports wheezing Physical Exam Vital Signs: Last Vital Signs Pulse 80 03/24/24 10:34 Pulse Ox 95 03/24/24 10:34 Oxygen Delivery Method Room Air 03/24/24 10:34 BMI result Body Mass Index 29.3 Const General: comfortable HEENT Head: Yes normocephalic General nose exam: Abnormal mucous membranes and turbinates present erythematous Neck Neck: Yes supple Chest Chest palpation & inspection: normal inspection of the chest Resp Effort & Inspection: normal respiratory effort and prolonged expiratory phase Auscultation: wheezes Cardio Heart sounds: S1 normal heart sound present and S2 normal heart sound present GI Palpation (GI): Soft to palpation Skin General skin exam: no rashes or lesions noted Extrem General: Yes no clubbing, cyanosis or edema Assessment & Plan Assessment & Plan (1) Asthma-COPD overlap syndrome: Code(s): J44.89 - Other specified chronic obstructive pulmonary disease Category: Medical (2) Chronic allergic rhinitis: Code(s): J30.9 - Allergic rhinitis, unspecified Category: Medical (3) Allergies: Code(s): T78.40XA - Allergy, unspecified, initial encounter Category: Medical Qualifiers: Encounter type: initial encounter Qualified Code(s): T78.40XA - Allergy, unspecified, initial encounter Plan Start Trelegy stop Advair EDITA as needed start Pseudophed BID, monitor BP Start Dymista Smoking cessation, will start cutting down Consider LDCT CXR PFTs F/U 2-3 months Orders: Orders XR chest 2V Today J44.89 - Other specified chronic obstructive pulmonary disease PFT pulmonary function test Today J44.89 - Other specified chronic obstructive pulmonary disease Medications: New azelastine-fluticasone 137-50 mcg/spray (Dymista) administer into each nostril 1 spray intranasal BID 30 days 23 grams 11RF pseudoephedrine HCl ER 120 mg PO Q12H 30 days 60 tabs 3RF albuterol sulfate 90 mcg/actuation (Ventolin HFA) 2 puffs inhalation QID 30 days PRN 18 grams 11RF shortness of breath or wheezing Discontinued azelastine administer into each nostril Discontinued Reason: Duplicate 1 spray intranasal BID 90 days 3 ea 3RF J01.10 - Acute frontal sinusitis, unspecified fluticasone propion-salmeterol 115-21 mcg/actuation Discontinued Reason: Doctor's Order 2 puffs inhalation BID 90 days 3 inhalers 3RF J44.1 - Chronic obstructive pulmonary disease with (acute) exacerbation albuterol sulfate 90 mcg/actuation Discontinued Reason: Duplicate 2 puffs inhalation QID 90 days 3 inhalers 2RF Wheezing F17.200 - Nicotine dependence, unspecified, uncomplicated Coding Level of Care Code New Pt Level 4 (71109) Diagnoses Asthma-COPD overlap syndrome J44.89 Chronic allergic rhinitis J30.9 Allergy, initial encounter T78.40XA Encounter type: initial encounter Time Spent (min) 36
== END 2024-03-24 10:58 | disposition home or self-care (01) ==
PROVIDERS: PCP Physician Assistant; Visit Provider Hospitalist
DX: J44.89 Other specified chronic obstructive pulmonary disease (principal); J30.9 Allergic rhinitis, unspecified
CPT/HCPCS: 99214

== ENCOUNTER 2024-04-11 16:02 | Emergency (ER) | payer OTHER, SELFPAY ==
--- NOTE | ~2024-04-11 | XR_ITS ---
History: Fall. Exams: 5 views right knee 5 views left knee FINDINGS: No definite effusion. No deformity. Joint spaces maintained. Tibial plateaus intact. Patella intact. XR/XR knee RT 3V IMPRESSION: No acute findings.
--- NOTE | ~2024-04-11 | CT_ITS ---
EXAMINATION: CT HEAD WITHOUT CONTRAST CLINICAL INFORMATION: Fall. COMPARISON: None available. TECHNIQUE: Contiguous axial imaging was performed from the skull base to vertex without intravenous administration of contrast. This CT examination was performed using dose optimization techniques as appropriate, variously including the following: *Automated exposure control *Adjustment of mA and/or kV according to patient size (this includes techniques or standardized protocols for targeted exams where dose is matched to indication/reason for exam; i.e. extremities or head) *Use of iterative reconstruction technique DLP: 595 mGy-cm FINDINGS: No intercranial hemorrhage, tumors or acute infarcts noted. The ventricles and sulci are normal in size and configuration. No focal parenchymal lesions of the brain noted. Moderate segmental calcific atherosclerosis of the cavernous portions of the internal carotid arteries. Orbits and globes are normal in appearance. No extracranial soft tissue inflammatory changes visualized. Trace fluid is present posteriorly within the right maxillary sinus. Opacification of a moderate number of bilateral anterior and posterior ethmoid air cells visualized. Mild mucosal thickening is present in the sphenoid sinus. No orbital emphysema identified. No mastoid or middle ear cavity effusions. CT/CT head/brain wo IV con IMPRESSION: No acute intracranial abnormalities.
--- NOTE | ~2024-04-11 | XR_ITS ---
History: Fall. Exams: 5 views right knee 5 views left knee FINDINGS: No definite effusion. No deformity. Joint spaces maintained. Tibial plateaus intact. Patella intact. XR/XR knee LT 3V IMPRESSION: No acute findings.
[2024-04-11 16:21] VITALS: BP 126/60; BP 160/82; PULSE 78; PULSE 86; RESP 18; TEMP 36.7; O2SAT 96; O2SAT 98; BMI 43.9
--- NOTE | 2024-04-11 17:19 | ED_ITS ---
HPI - Fall General Chief Complaint: Fall Stated Complaint: fall Time Seen by Provider: 04/12/24 00:03 Source: patient Mode of arrival: ambulatory Limitations: no limitations History of Present Illness HPI Narrative: Patient history of hypertension diabetes DVT on Eliquis take Klonopin for anxiety and sleep yesterday patient took the pill when went outside fell lightheaded and fell hitting her right cheek bone today patient had another mechanical fall landed on her left knee no chest pain no syncope this time patient does use walker to walk Related Data Home Medications ?Medication ?Instructions ?Recorded ?Confirmed clonazepam 1 mg tablet 0.5 mg PO BID 10/31/22 02/05/24 zolpidem 10 mg tablet 10 mg PO BEDTIME 11/20/23 02/05/24 Previous Rx's ?Medication ?Instructions ?Recorded disposable gloves #1,000 ea 04/02/23 adult pullups #120 ea 04/25/23 diaper,brief,adult,disposable #120 ea 05/20/23 epinephrine 0.3 mg/0.3 mL 0.3 mg (0.3 mL) IM ONCE PRN 05/29/23 injection, auto-injector (EpiPen anaphylaxis 30 days #2 ea 2-Kamaljit) walker (Ultra-Light Rollator misc) #1 ea 07/03/23 primidone 50 mg tablet 100 mg (2 x 50 mg) PO BID 90 days 07/23/23 #720 tabs miscellaneous medical supply 1 ea miscellaneous DAILY 99 days 10/28/23 #1 ea compr.stocking,knee,long,large #2 ea 11/07/23 cane #1 ea 11/13/23 diphenhydramine HCl 25 mg capsule 25 mg PO Q8H allergies 90 days 11/13/23 (Banophen) #270 caps humidifiers (Cool Mist Humidifier) #1 ea 11/13/23 back brace #1 ea 12/02/23 soft neck brace #1 ea 12/02/23 leg brace (Knee Support Brace) #1 ea 01/29/24 apixaban 5 mg tablet (Eliquis) 5 mg PO BID 90 days #180 tabs 02/17/24 folic acid 1 mg tablet 1 mg PO DAILY 90 days #90 tabs 02/17/24 furosemide 20 mg tablet 20 mg PO Q OTHER DAY 90 days #45 02/17/24 tabs gabapentin 100 mg capsule 200 mg (2 x 100 mg) PO BEDTIME 90 02/17/24 days #180 caps loperamide 2 mg capsule 2 mg PO Q8H PRN loose stool 90 02/17/24 days #270 caps montelukast 10 mg tablet 10 mg PO DAILY 90 days #90 tabs 02/17/24 omeprazole 20 mg capsule,delayed 20 mg PO DAILY 90 days #90 caps 02/17/24 release topiramate 200 mg tablet (Topamax) 200 mg PO BID 90 days #180 tabs 02/17/24 triamcinolone acetonide 0.5 % 1 appl topical DAILY 90 days #45 02/17/24 topical cream grams incontinence pad, liner, disp #200 ea 02/19/24 bed pads #120 ea 02/25/24 alendronate 70 mg tablet (Fosamax) 70 mg PO QWEEK 12 weeks #12 tabs 03/05/24 acetaminophen 500 mg tablet (Pain 500 mg PO BID for fever 90 days 03/13/24 Relief (acetaminophen)) #180 tabs cholecalciferol (vitamin D3) 50 50 mcg PO DAILY 90 days #90 caps 03/13/24 mcg (2,000 unit) capsule amitriptyline 50 mg tablet 50 mg PO BEDTIME 90 days #90 tabs 03/16/24 gabapentin 400 mg capsule 400 mg PO BEDTIME #90 caps 03/16/24 magnesium oxide 400 mg PO BEDTIME 90 days #90 caps 03/16/24 albuterol sulfate 90 mcg/actuation 2 puff inhalation QID PRN 03/24/24 aerosol inhaler (Ventolin HFA) shortness of breath or wheezing 30 days #18 grams azelastine 137 mcg-fluticasone 50 1 spray intranasal BID 30 days #23 03/24/24 mcg/spray nasal spray (Dymista) grams pseudoephedrine HCl 120 mg 120 mg PO Q12H 30 days #60 tabs 03/24/24 tablet,extended release disposable face masks #1 ea 03/26/24 fluticasone fur. 200 mcg-umeclid 1 inh inhalation DAILY 30 days #60 03/26/24 62.5 mcg-vilant 25 mcg ea inhalat.powder (Trelegy Ellipta) baclofen 20 mg tablet 20 mg PO BEDTIME 90 days #90 tabs 03/30/24 vitamin B complex 1 tab PO DAILY 90 days #90 tabs 03/30/24 fluticasone furoate 200 1 inh inhalation DAILY 30 days #60 04/06/24 mcg-vilanterol 25 mcg/dose ea inhalation powder (Breo Ellipta) lidocaine 5 % topical patch 1 patch topical DAILY 30 days #30 04/06/24 ea umeclidinium 62.5 mcg/actuation 1 inh inhalation DAILY 30 days #30 04/06/24 blister powder for inhalation ea (Incruse Ellipta) acetaminophen 300 mg-codeine 30 mg 1 tab PO Q6H PRN pain #20 tabs 04/12/24 tablet Allergies Allergy/AdvReac Type Severity Reaction Status Date / Time cat dander [CATS] Allergy Mild HAYFEVER Verified 04/11/24 16:36 Chocolate Allergy Mild HEADACHES Verified 04/11/24 16:36 dog dander [DOGS] Allergy Mild HAYFEVER Verified 04/11/24 16:36 Environmental Allergy Mild HAYFEVER Uncoded 04/11/24 16:36 yellow jackets Allergy Anaphylaxis Uncoded 04/11/24 16:37 Review of Systems 2 Review of Systems: Yes all other systems are reviewed and are negative PMFSH Past Medical History Medical History Allergies Chronic allergic rhinitis Asthma-COPD overlap syndrome COPD exacerbation COVID-19 History of abnormal cervical Pap smear Spinal stenosis, cervical region Peripheral polyneuropathy Spondylosis of cervical spine Spondylosis of lumbar spine Cocaine abuse Alcohol abuse Hepatitis HIV (human immunodeficiency virus infection) Heart murmur History of cocaine abuse History of heroin abuse Hydradenitis Former cigarette smoker Recovering alcoholic GERD (gastroesophageal reflux disease) Lumbago with sciatica, left side Arthritis Back pain On anticoagulant therapy DVT (deep venous thrombosis) History of celiac disease Anxiety Panic attacks Depression PTSD (post-traumatic stress disorder) Parkinson disease History of frequent headaches Seizure Asthma Surgical History H/O excision of ganglion cyst Hx of esophagogastroduodenoscopy History of carpal tunnel surgery of left wrist Hx of nasal septoplasty History of hemorrhoidectomy Hx of colonoscopy Family History Family History Mother No problems noted. Social History Social History Housing: Apartment Are you a primary urgent care nurse practitioner to a significant other at home: No Do you presently have visiting nurse or other home services: Yes Alcohol intake: former Year quit: 2003 Comment: was seen at [facility]-called for note Patient Tobacco Use Status: Current everyday Tobacco user Tobacco use type: Cigarette Cigarette Packs Per Day: 0.5 Cigarettes Per Day: 7 Years Smoked: 45 Smoked in Last 30 Days: Yes e-Cigarette/Vaping Use: Former Use Second Hand Smoke Exposure: No Use of substances other than those prescribed or required for medical reasons: No service: No Current occupational status: disabled Cognitive needs: Yes (back brace) Hearing needs: No Vision needs: Yes Physical Exam 2 Vital Signs: Vital Signs: Last Vital Signs Temp 97.5 F 04/12/24 00:03 Pulse 67 04/12/24 00:03 Resp 16 04/12/24 00:03 BP 121/52 L 04/12/24 00:03 Pulse Ox 97 04/12/24 00:03 O2 Del Method Room Air 04/12/24 00:03 BMI result Body Mass Index 43.9 Appearance: Alert. Oriented X3. No acute distress. Eyes: PERRLA, No Nystagmus ENT: Pharynx normal. Oral Mucosa moist atraumatic slight swelling of the right cheek bone Neck: Normal inspection. Neck supple. CVS: Normal heart rate and rhythm. Pulses normal. Respiratory: No respiratory distress. Equal air entry bilateral, no wheezing/rales/rhonchi Abdomen: Soft and nontender. Bowel sounds are present, no mass palpable, no CVA tenderness Skin: Skin warm and dry. Normal skin color. Normal skin turgor. Extremities: No lower extremity edema. No calf tenderness left knee with mild effusion and tenderness Neuro: Oriented X 3. No motor deficit. No sensory deficit.No cerebellar signs , cranial nerves II-XII intact Course Course Course Narrative: This is an RME: Additional HPI, ROS, PE not included below will be deferred to primary provider. RME assessment and note performed by: Marleny Kruse PA-C This is a 63-year-old female, with a history of COPD, DOUG, GERD, MDD, hypertension, seizure disorder, DVT on Eliquis, who presents emergency department complaints of 2 unwitnessed falls which occurred last night and today. Patient reporting that these were mechanical. Reporting bilateral knee pain. She is on Eliquis for DVTs. Plan: X-rays, labs, EKG, CT head Medications Administered Discontinued Medications Generic Name Dose Route Start Last Admin Trade Name Nora PRN Reason Stop Dose Admin Acetaminophen/Codeine Phosphate 1 tab 04/12/24 00:16 04/12/24 00:33 Acetaminophen/Codeine 300-30mg Tablet PO 04/12/24 00:17 1 tab ONCE ONE Administration Medical Decision Making Medical Decision Making [facility] Narrative: Patient is status post mechanical fall head CT is negative x-rays negative will apply Luis Enrique wrap advised to follow with PCP not to take too much pain medications and time will prescribe her Tylenol with codeine Lab Data [facility] Lab Attestation statement: I reviewed the patient's lab results. 04/11/24 17:47 04/11/24 17:47 Labs: Lab Results 04/11/24 Range/Units 17:47 WBC 7.9 (4.8-10.8) X10*3/uL RBC 3.38 L (4.20-5.50) X10*6/uL Hgb 10.8 L (12.0-16.0) g/dl Hct 32.1 L (37.0-47.0) % MCV 95.0 (80.0-98.0) fL MCH 32.0 (27.0-33.0) pg MCHC 33.6 (31.0-35.0) g/dl RDW 14.6 (11.0-16.0) % Plt Count 249 (160-400) X10*3/uL MPV 9.5 (9.4-12.3) fL Immature Gran % (Auto) 0.3 (0.0-0.4) % Neut % (Auto) 61.9 (45-73) % Lymph % (Auto) 17.0 L (20-40) % Mccreary % (Auto) 16.0 H (2-11) % Eos % (Auto) 4.2 H (0-4) % Baso % (Auto) 0.6 (0-2) % Lymph # (Auto) 1.4 (1.2-4.9) X10*3/uL Mccreary # (Auto) 1.3 H (0.1-1.2) X10*3/uL Eos # (Auto) 0.3 (0.0-0.4) X10*3/uL Baso # (Auto) 0.1 (0.0-0.2) X10*3/uL Abs Immat Gran (auto) 0.02 (0.00-0.03) X10*3/uL Absolute Neuts (auto) 4.9 (2.0-8.3) x10*3/uL Absolute Nucleated RBC 0.000 (0.0-0.012) X10*3/uL Nucleated RBC % (auto) 0.0 (0.0-0.2) /100WBC Sodium 137 (135-145) mmol/L Potassium 4.4 (3.3-5.1) mmol/L Chloride 107 (96-108) mmol/L Carbon Dioxide 23 (22-29) mmol/L Anion Gap 11 L (12-20) BUN 17 H (9-16) mg/dL Creatinine 1.41 H (0.5-1.4) mg/dL Estim Creat Clear Calc 47.4 Estimated GFR 38 Random Glucose 111 (60-115) mg/dL Calcium 9.1 D (8.4-10.2) mg/dL Magnesium 2.3 (1.6-2.6) mg/dL Total Bilirubin 0.2 (0.0-1.0) mg/dL Direct Bilirubin < 0.2 (0.0-0.5) mg/dL AST 22 (5-31) U/L ALT 16 (0-31) U/L Alkaline Phosphatase 91 (39-117) U/L Total Creatine Kinase 236 H (26-140) U/L Troponin I High Sens < 2.7 (<3.5-17.0) ng/L Total Protein 7.3 (6.5-8.0) g/dL Albumin 4.1 (3.5-5.0) g/dL Independent Interpretation I performed an independent interpretation of an: Plain X-Ray and CT Scan Radiology Impression Discussion of test interpretation with radiology: I have reviewed the radiologist's reading. Discharge Plan Discharge Clinical Impression: Contusion of knee, left Patient Disposition: Home, Self-Care Instructions: Swollen Knee Joint (ED) Additional Instructions: Wear Luis Enrique wrap use walker as provided by your orthopedics Pain medication as prescribed Prescriptions: New acetaminophen-codeine 300-30 mg tablet 1 tab PO Q6H PRN (Reason: pain) Qty: 20 0RF No Action (DME) disposable gloves Misc See Rx Instructions .Route Qty: 1000 3RF Rx Instructions: As directed (DME) adult pullups medium See Rx Instructions .Route .MEDSUPPLY Qty: 120 11RF Rx Instructions: As directed (DME) diaper,brief,adult,disposable Misc See Rx Instructions .Route Qty: 120 0RF Rx Instructions: As directed epinephrine [EpiPen 2-Kamaljit] 0.3 mg/0.3 mL auto-injector 0.3 mg IM ONCE PRN (Reason: anaphylaxis) 30 Days Qty: 2 0RF miscellaneous medical supply Misc 1 ea miscellaneous DAILY 99 Days Qty: 1 0RF (DME) cane Device See Rx Instructions .Route Qty: 1 0RF Rx Instructions: As directed (DME) humidifiers [Cool Mist Humidifier] Misc See Rx Instructions .Route Qty: 1 0RF Rx Instructions: As directed diphenhydramine HCl [Banophen] 25 mg capsule 25 mg PO Q8H 90 Days Qty: 270 3RF (DME) soft neck brace See Rx Instructions .Route .MEDSUPPLY Qty: 1 0RF Rx Instructions: As directed (DME) back brace Misc See Rx Instructions .Route Qty: 1 0RF Rx Instructions: As directed (DME) Knee Support Brace Misc See Rx Instructions .Route Qty: 1 0RF Rx Instructions: As directed Eliquis 5 mg tablet 5 mg PO BID 90 Days Qty: 180 1RF folic acid 1 mg tablet 1 mg PO DAILY 90 Days Qty: 90 1RF furosemide 20 mg tablet 20 mg PO Q OTHER DAY 90 Days Qty: 45 3RF gabapentin 100 mg capsule 200 mg PO BEDTIME 90 Days Qty: 180 1RF loperamide 2 mg capsule 2 mg PO Q8H PRN (Reason: loose stool) 90 Days Qty: 270 0RF montelukast 10 mg tablet 10 mg PO DAILY 90 Days Qty: 90 1RF omeprazole 20 mg capsule,delayed release(DR/EC) 20 mg PO DAILY 90 Days Qty: 90 1RF topiramate [Topamax] 200 mg tablet 200 mg PO BID 90 Days Qty: 180 3RF triamcinolone acetonide 0.5 % cream 1 appl topical DAILY 90 Days Qty: 45 3RF (DME) incontinence pad, liner, disp Pad See Rx Instructions .Route Qty: 200 1RF Rx Instructions: As directed (DME) bed pads See Rx Instructions .Route .MEDSUPPLY Qty: 120 11RF Rx Instructions: As directed alendronate [Fosamax] 70 mg tablet 70 mg PO QWEEK 84 Days Qty: 12 1RF acetaminophen [Pain Relief (acetaminophen)] 500 mg tablet 500 mg PO BID 90 Days Qty: 180 2RF cholecalciferol (vitamin D3) 50 mcg (2,000 unit) capsule 50 mcg PO DAILY 90 Days Qty: 90 3RF amitriptyline 50 mg tablet 50 mg PO BEDTIME 90 Days Qty: 90 1RF gabapentin 400 mg capsule 400 mg PO BEDTIME Qty: 90 3RF magnesium oxide 400 mg magnesium capsule 400 mg PO BEDTIME 90 Days Qty: 90 2RF Trelegy Ellipta 200-62.5-25 mcg blister with device 1 inh inhalation DAILY 30 Days Qty: 60 12RF (DME) disposable face masks See Rx Instructions .Route .MEDSUPPLY Qty: 1 0RF Rx Instructions: As directed vitamin B complex Tablet 1 tab PO DAILY 90 Days Qty: 90 1RF baclofen 20 mg tablet 20 mg PO BEDTIME 90 Days Qty: 90 1RF fluticasone furoate-vilanterol [Breo Ellipta] 200-25 mcg/dose blister with device 1 inh inhalation DAILY 30 Days Qty: 60 11RF Incruse Ellipta 62.5 mcg/actuation blister with device 1 inh inhalation DAILY 30 Days Qty: 30 11RF lidocaine 5 % adhesive patch,medicated 1 patch topical DAILY 30 Days Qty: 30 0RF Rx Instructions: leave on most painful area for up to 12 hrs clonazepam 1 mg tablet 0.5 mg PO BID (DME) Ultra-Light Rollator Misc See Rx Instructions .Route Qty: 1 0RF Rx Instructions: As directed (DME) compr.stocking,knee,long,large Misc See Rx Instructions .Route Qty: 2 0RF Rx Instructions: As directed primidone 50 mg tablet 100 mg PO BID 90 Days Qty: 720 3RF zolpidem 10 mg tablet 10 mg PO BEDTIME azelastine-fluticasone [Dymista] 137-50 mcg/spray spray,non-aerosol 1 spray intranasal BID 30 Days Qty: 23 11RF Rx Instructions: administer into each nostril pseudoephedrine HCl 120 mg tablet extended release 120 mg PO Q12H 30 Days Qty: 60 3RF albuterol sulfate [Ventolin HFA] 90 mcg/actuation HFA aerosol inhaler 2 puff inhalation QID PRN (Reason: shortness of breath or wheezing) 30 Days Qty: 18 11RF Print Language: Danish
--- NOTE | 2024-04-11 17:20 | ECG_ITS ---
Test Reason : FALL Blood Pressure : / mmHG Vent. Rate : 077 BPM Atrial Rate : 077 BPM P-R Int : 196 ms QRS Dur : 076 ms QT Int : 372 ms P-R-T Axes : 049 029 045 degrees QTc Int : 420 ms Normal sinus rhythm Normal ECG When compared with ECG of 11-OCT-2020 00:00, No significant change was found Referred By: Marleny Kruse Electronically Signed By:Francisco Alvares
[2024-04-11 18:03] LABS: MANUAL DIFF FLAG NO
[2024-04-11 18:07] LABS: Basophils Absolute Auto 0.1 X10*3/uL (0.0-0.2); Basophils Percent Auto 0.6 % (0-2); Eosinophils Absolute Auto 0.3 X10*3/uL (0.0-0.4); Eosinophils Percent Auto 4.2 % (0-4); Hematocrit 32.1 % (37.0-47.0); Hemoglobin 10.8 g/dl (12.0-16.0); Imm Gran Abs Auto 0.02 X10*3/uL (0.00-0.03); Imm Gran Pct Auto 0.3 % (0.0-0.4); Lymphocytes Absolute Auto 1.4 X10*3/uL (1.2-4.9); Mean Corpuscular HGB Conc 33.6 g/dl (31.0-35.0); Mean Platelet Volume 9.5 fL (9.4-12.3); Monocytes Absolute Auto 1.3 X10*3/uL (0.1-1.2); Neutrophils Absolute Auto 4.9 x10*3/uL (2.0-8.3); Neutrophils Percent Auto 61.9 % (45-73); Platelet Count 249 X10*3/uL (160-400); Red Blood Count 3.38 X10*6/uL (4.20-5.50); Red Cell Distribution Width 14.6 % (11.0-16.0); White Blood Count 7.9 X10*3/uL (4.8-10.8)
[2024-04-11 18:24] LABS: Alanine Aminotransferase 16 U/L (0-31); Albumin Level 4.1 g/dL (3.5-5.0); Alkaline Phosphatase 91 U/L (39-117); Anion Gap 11 (12-20); Aspartate Amino Transferase 22 U/L (5-31); Bilirubin Direct < 0.2 mg/dL (0.0-0.5); Bilirubin Total 0.2 mg/dL (0.0-1.0); Blood Urea Nitrogen 17 mg/dL (9-16); Calcium 9.1 mg/dL (8.4-10.2); Carbon Dioxide 23 mmol/L (22-29); Chloride 107 mmol/L (96-108); Creatinine Clr Calc Pharmacy 47.4; Estimated Glomerular Filt Rate 38; Glucose Random 111 mg/dL (60-115); Magnesium 2.3 mg/dL (1.6-2.6); Potassium 4.4 mmol/L (3.3-5.1); Sodium 137 mmol/L (135-145); Total Protein 7.3 g/dL (6.5-8.0)
[2024-04-11 18:32] LABS: Troponin-I High Sensitivity < 2.7 ng/L (<3.5-17.0)
[2024-04-12 00:03] VITALS: BP 121/52; PULSE 67; RESP 16; TEMP 36.4; O2SAT 97
--- NOTE | 2024-04-12 00:09 | PC.NURSE ---
Pt ca&ox3, no signs of distress. Pt reporting 10/10 knee pain. Pt reports she fell at home last night and this am at home, denies loc and prolonged down time. Provider with pt Plan of care ongoing.
[2024-04-12] MEDS: Acetaminophen/Codeine 300-30mg Tablet 1 TAB PO (00:33)
--- NOTE | 2024-04-12 00:36 | PC.NURSE ---
Pt medicated per jan. Plan of care ongoing.
--- OUTSIDE RECORDS SUMMARY | 2024-04-12 01:02 | XMS_ITS | Continuity of Care Document ---
Author Organization [facility] Melo lt Address [address] [place] [address]- Care Team Providers Care Assembler Knife Name Role Phone Daniel RODRIGUEZ, Isela Primary Care Physician Encounter [facility] [place] Date(s): 10/17/21 - 11/16/21 [facility] Adult [address] [place] [address]- Immunizations Given and Recorded Vaccine Date Status Refusal Reason influenza virus vaccine, inactivated 10/10/21 Give n influenza virus vaccine, inactivated 09/05/20 Guilherme rded influenza virus vaccine, inactivated 09/07/19 Guilherme rded influenza virus vaccine, inactivated 08/12/18 Guilherme rded influenza virus vaccine, inactivated 08/08/17 Guilherme rded influenza virus vaccine, inactivated 08/17/16 Guilherme rded influenza virus vaccine, inactivated 10/03/15 Guilherme rded influenza virus vaccine, inactivated 09/02/14 Guilherme rded SARS-CoV-2 (COVID-19) mRNA-1273 vaccine 10/07/21 R ecorded SARS-CoV-2 (COVID-19) mRNA-1273 vaccine 04/06/21 R ecorded SARS-CoV-2 (COVID-19) mRNA-1273 vaccine 03/09/21 R ecorded tetanus/diphtheria/pertussis, acel(Tdap) 03/19/21 Recorded tetanus/diphtheria/pertussis, acel(Tdap) 06/25/16 Recorded pneumococcal 23-valent vaccine 05/29/13 Recorded Hepatitis A Adult Vaccine 08/25/08 Recorded hepatitis B adult vaccine 08/23/08 Recorded Medications albuterol (OP) 0 Refills, Maintenance, 2 Start Date: 10/10/21 Status: Ordered Banophen 25 mg oral tablet 1 tablet = 25 mg, By Mouth, 3 times a day, 0 Refills, Maintenance, 10/10/21 14:19:00 EST, Partial fill upon patient request if the prescription is for a schedule II opioid drug. Start Date: 10/10/21 Status: Ordered busPIRone 5 mg oral tablet 5 mg, 1, tablet, By Mouth, 2 times a day, # 60 tablet, Refills 0, Tot. Refills 0, Maintenance, 10/24/21 15:19:00 EST, Route to Pharmacy Electronically, [facility][id number], Partial fill upon patient request if the prescription is for a schedul... Start Date: 10/24/21 Status: Ordered carbidopa-levodopa 25 mg-100 mg oral tablet, disintegrating 2 tablet, By Mouth, 4 times a day, # 240 tablet, 0 Refills, Maintenance, 10/10/21 14:20:00 EST, [facility], Partial fill upon patient request if the prescription is for a schedule II opioid drug. Start Date: 10/10/21 Status: Ordered cetirizine 10 mg oral capsule 1 capsule = 10 mg, By Mouth, Daily, 0 Refills, Maintenance, 10/10/21 14:18:00 EST, Partial fill upon patient request if the prescription is for a schedule II opioid drug. Start Date: 10/10/21 Status: Ordered clonazePAM 0.5 mg oral tablet 1 tablet = 0.5 mg, By Mouth, 2 times a day, # 4 tablet, 0 Refills, Maintenance, 10/26/21 12:49:00 EST, [facility] #[id number], Partial fill upon patient request if the prescription is for a schedule II opioid drug., 157, cm, 10/24/21 14:39:00 EST... Start Date: 10/26/21 Stop Date: 10/28/21 Status: Ordered clonazePAM 1 mg oral tablet See Instructions, take 0.5 tablet, as needed for anxiety, do not take more than 1 tablets/day., # 7tablet, 0 Refills, Maintenance, 10/18/21 10:34:00 EST, Tablet, [facility] #[id number], Partialfill upon patient request if the prescription is fo... Start Date: 10/18/21 Status: Ordered cyanocobalamin 1000 mcg/ml injectable solution See Instructions, 1,000 mcg Intramuscular ONCE a month for 4 months starting 10/24/21 to be given inoffice, # 10 mL, 0 Refills, Maintenance, 10/24/21 18:05:00 EST, Partial fill upon patient request if the prescription is for a schedule II opioid drug. Start Date: 10/24/21 Status: Ordered Eliquis 5 mg oral tablet 1 tablet = 5 mg, By Mouth, 2 times a day, 0 Refills, Maintenance, 10/10/21 14:19:00 EST, Partial fill upon patient request if the prescription is for a schedule II opioid drug. Start Date: 10/10/21 Status: Ordered Flonase 50 mcg/inh nasal spray 1 sprays, Nares, Both, 2 times a day, # 16 Gm, 0 Refills, Maintenance, 10/24/21 15:29:00 EST, [place], [email or web address] #[id number], Partial fill upon patient request if the prescription is for a schedule II opioid drug., 1 sprays Nares, Both 2 times a d... Start Date: 10/24/21 Status: Ordered Flovent Diskus 100 mcg/inh inhalation powder 1 puffs, Inhalation, 2 times a day, # 120 each, 0 Refills, Maintenance, 10/24/21 15:29:00 EST, [place], [email or web address] #[id number], Partial fill upon patient request if the prescription is for a schedule II opioid drug., 1 puffs Inhalation 2 times a d... Start Date: 10/24/21 Status: Ordered gabapentin 300 mg oral capsule 300 mg, 1, capsule, By Mouth, 3 times a day, # 270 capsule, Refills 0, Maintenance, 10/10/21 14:18:00 EST, Partial fill upon patient request if the prescription is for a schedule II opioid drug. Start Date: 10/10/21 Status: Ordered magnesium gluconate 500 mg oral tablet 1 tablet = 500 mg, By Mouth, 2 times a day, 0 Refills, Maintenance, 10/10/21 14:18:00 EST, Partial fill upon patient request if the prescription is for a schedule II opioid drug. Start Date: 10/10/21 Status: Ordered primidone 50 mg oral tablet 50 mg, 1, tablet, By Mouth, 3 times a day, Refills 0, Maintenance, 10/10/21 14:19:00 EST, Partial fill upon patient request if the prescription is for a schedule II opioid drug. Start Date: 10/10/21 Status: Ordered topiramate 200 mg oral capsule, extended release 1 capsule = 200 mg, By Mouth, Daily, 0 Refills, Maintenance, 10/10/21 14:19:00 EST, Partial fill upon patient request if the prescription is for a schedule II opioid drug. Start Date: 10/10/21 Status: Ordered Vistaril pamoate 25 mg oral capsule See Instructions, PRN for itching, Take one table every 8 hours as needed for anxiety or panic attack, # 40 capsule, 0 Refills, Maintenance, 10/27/21 11:26:00 EST, Caps[place], [facility] #[id number], Partial fill upon patient request if the prescrip... Start Date: 10/27/21 Status: Ordered Problem List Condition Effective Dates Status Health Status Inform ant Memory loss(Confirmed) Active Anxiety(Confirmed) Active Cervical disc disease(Confirmed) Active Chronic pain of left wrist(Confirmed) Active Deep vein thrombosis (DVT) o f left lower extremity(Confirmed) 1 Active Depression(Confirmed) 2 Active Lumbar disc disease(Confirmed) Active Generalized arthritis(Confirmed) Active History of claustrophobia(Confirmed) Active History of alcohol abuse(Confirmed) Active History of substance abuse(Confirmed) Active HTN (hypertension)(Confirmed) Active Insomnia(Confirmed) Active Macrocytic anemia with vitam in B12 deficiency(Confirmed) Active Parkinson's disease(Confirmed) Active Encounter to establish care(Confirmed) Active COPD with emphysema(Confirmed) Active Seasonal allergies(Confirmed) Active Seizure disorder(Confirmed) Active 1Femoral vein of left lower extremity 2Bipolar depression Social History Social History Type Response Smoking Status Former smoker, quit more than 30 days ago; Other: quit 8 month ago; entered on: 10/11/21 Sex
--- OUTSIDE RECORDS SUMMARY | 2024-04-12 01:02 | XMS_ITS | Continuity of Care Document ---
Author Organization [facility] Melo lt Address [address] [place] [address]- Care Team Providers Care Cemetery Keeper Name Role Phone Isela Sanchez NP Primary Care Physician Encounter [facility] [place] Date(s): 10/10/21 - 10/17/21 [facility] Adult [address] [place] [address]- Encounter Diagnosis Generalized arthritis(Discharge Diagnosis) - 10/10/21 History of claustrophobia(Discharge Diagnosis) - 10/10/21 History of alcohol abuse(Discharge Diagnosis) - 10/10/21 Memory loss(Discharge Diagnosis) - 10/10/21 Insomnia(Discharge Diagnosis) - 10/10/21 Depression(Discharge Diagnosis) - 10/10/21 Anxiety(Discharge Diagnosis) - 10/10/21 History of substance abuse(Discharge Diagnosis) - 10/10/21 Seasonal allergies(Discharge Diagnosis) - 10/10/21 Encounter to establish care(Discharge Diagnosis) - 10/10/21 Deep vein thrombosis (DVT) of left lower extremity(Discharge Diagnosis) - 10/10/21 Seizure disorder(Discharge Diagnosis) - 10/10/21 Parkinson's disease(Discharge Diagnosis) - 10/10/21 Cervical disc disease(Discharge Diagnosis) - 10/10/21 Chronic pain of left wrist(Discharge Diagnosis) - 10/10/21 Lumbar disc disease(Discharge Diagnosis) - 10/10/21 HTN (hypertension)(Discharge Diagnosis) - 10/11/21 COPD with emphysema(Discharge Diagnosis) - 10/11/21 Attending Physician: Isela Sanchez NP Immunizations Given and Recorded Vaccine Date Status [...] opioid drug. Start Date: 10/10/21 Status: Ordered carbidopa-levodopa 25 mg-100 mg oral [...] drug. Start Date: 10/10/21 Status: Ordered clonazePAM 1 mg oral tablet See Instructions, 1 tablet as needed for anxiety, can take every 12 hours , do not take more than 1tablet /day, # 14 tablet, 0 Refills, Maintenance, 10/10/21 15:04:00 EST, Tablet, [facility] #[id number], Partial fill upon patient request if the... Start Date: 10/10/21 Status: Ordered Eliquis 5 mg oral tablet 1 tablet = 5 mg, By Mouth, 2 times a day, 0 Refills, Maintenance, 10/10/21 14:19:00 EST, Partial fill upon patient request if the prescription is for a schedule II opioid drug. Start Date: 10/10/21 Status: Ordered gabapentin 300 mg oral capsule [...] opioid drug. Start Date: 10/10/21 Status: Ordered Problem List Condition Effective Dates [...] abuse(Confirmed) Active HTN (hypertension)(Confirmed) Active Insomnia(Confirmed) Active Parkinson's disease(Confirmed) Active Encounter to establish care(Confirmed) Active COPD with emphysema(Confirmed) Active Seasonal allergies(Confirmed) Active Seizure disorder(Confirmed) Active 1Femoral vein of left lower extremity 2Bipolar depression Diagnosis Diagnosis Type Effective Dates Health Status Clinical Service Informant Encounter to establish care Discharge Diagnosis 10/10/21 Cervical disc disease Discharge Diagnosis 10/10/21 Lumbar disc disease Discharge Diagnosis 10/10/21 Chronic pain of left wrist Discharge Diagnosis 10/10/21 Parkinson's disease Discharge Diagnosis 10/10/21 Seizure disorder Discharge Diagnosis 10/10/21 Deep vein thrombosis (DVT) of left lower extremity Discharge Diagnosis 10/10/21 Generalized arthritis Discharge Diagnosis 10/10/21 History of claustrophobia Discharge Diagnosis 10/10/21 History of alcohol abuse Discharge Diagnosis 10/10/21 Memory loss Discharge Diagnosis 10/10/21 Insomnia Discharge Diagnosis 10/10/21 Depression Discharge Diagnosis 10/10/21 Anxiety Discharge Diagnosis 10/10/21 History of substance abuse Discharge Diagnosis 10/10/21 Seasonal allergies Discharge Diagnosis 10/10/21 HTN (hypertension) Discharge Diagnosis 10/11/21 COPD with emphysema Discharge Diagnosis 10/11/21 Vital Signs Most recent to oldest [Reference Range]: 1 Height 157 cm (10/10/21 1:52 PM) Weight 72.9 kg (10/10/21 1:52 PM) Pulse Rate [55-90 bpm] 74 bpm (10/10/21 1:52 PM) Body Mass Index [18.5-24.99] 29.58 *H* (10/10/21 1:52 PM) Blood Pressure [90-138/55-84 mm Hg] 138/ 72mm Hg (10/10/21 1:52 PM) Blood pressure sites Arm, right (10/10/21 1:52 PM) Social History Social History Type Response Smoking Status Former smoker, quit more than 30 days ago; Other: quit 8 month ago; entered on: 10/11/21 Sex
--- OUTSIDE RECORDS SUMMARY | 2024-04-12 01:02 | XMS_ITS | Continuity of Care Document ---
Author Organization [facility] [place] Melo lt Address [address] [place] [address]- Care Team Providers Care Contracts Advisor Name Role Phone Daniel RODRIGUEZ, Isela Primary Care Physician Encounter [facility] Date(s): 10/26/21 - 11/25/21 [facility] Adult [address] [place] [address]- Immunizations Given and Recorded Vaccine Date Status [...] 10/24/21 15:19:00 EST, Route to Pharmacy Electronically, [facility] #[id number], Partial fill upon patient request if the [...] tablet, 0 Refills, Maintenance, 10/26/21 12:49:00 EST, [facility] #[id number], Partial fill upon patient request if the prescription is for a schedule II opioid drug., 157, cm, 10/24/21 14:39:00 EST... Start Date: 10/26/21 Stop Date: 10/28/21 Status: Ordered clonazePAM 1 mg oral tablet See Instructions, take 0.5 tablet, as needed for anxiety, do not take more than 1 tablets/day., # 7tablet, 0 Refills, Maintenance, 10/18/21 10:34:00 EST, Tablet, [facility] #[id number], Partialfill upon patient request if the prescription [...] Gm, 0 Refills, Maintenance, 10/24/21 15:29:00 EST, [place], [facility] #[id number], Partial fill upon patient request if the prescription is for a schedule II opioid drug., 1 sprays Nares, Both 2 times a d... Start Date: 10/24/21 Status: Ordered Flovent Diskus 100 mcg/inh inhalation powder 1 puffs, Inhalation, 2 times a day, # 120 each, 0 Refills, Maintenance, 10/24/21 15:29:00 EST, [place], [facility] #[id number], Partial fill upon patient request if the [...] 0 Refills, Maintenance, 10/27/21 11:26:00 EST, Caps[place], [facility] #[id number], Partial fill upon patient request if the [...]
--- OUTSIDE RECORDS SUMMARY | 2024-04-12 01:02 | XMS_ITS | Continuity of Care Document ---
Author Organization [facility] Melo lt Address [address] [place] [address]- Care Team Providers Care Director Of Labor Relations Name Role Phone Daniel RODRIGUEZ, Isela Primary Care Physician Encounter [facility] [place] Date(s): 10/25/21 - 11/24/21 [facility] Adult [address] [place] [address]- Immunizations Given and Recorded Vaccine Date Status Refusal Reason influenza virus vaccine, inactivated 10/10/21 Give n influenza virus vaccine, inactivated 09/05/20 Guilherme rded influenza virus vaccine, inactivated 09/07/19 Guilherme rded influenza virus vaccine, inactivated 08/12/18 Guilherme rded influenza virus vaccine, inactivated 08/08/17 Guilherme rded influenza virus vaccine, inactivated 08/17/16 Guilherme rded influenza virus vaccine, inactivated 10/03/15 Ugilherme rded influenza virus vaccine, inactivated 09/02/14 Guilherme [...] 10/24/21 15:19:00 EST, Route to Pharmacy Electronically, [facility] #[id number], Partial fill upon patient request if the [...] tablet, 0 Refills, Maintenance, 10/26/21 12:49:00 EST, [facility] #[id number], Partial fill upon patient request if the prescription is for a schedule II opioid drug., 157, cm, 10/24/21 14:39:00 EST... Start Date: 10/26/21 Stop Date: 10/28/21 Status: Ordered clonazePAM 1 mg oral tablet See Instructions, take 0.5 tablet, as needed for anxiety, do not take more than 1 tablets/day., # 7tablet, 0 Refills, Maintenance, 10/18/21 10:34:00 EST, [place], [facility] #[id number], Partialfill upon patient request if the prescription [...] Gm, 0 Refills, Maintenance, 10/24/21 15:29:00 EST, [place], [facility] #[id number], Partial fill upon patient request if the prescription is for a schedule II opioid drug., 1 sprays Nares, Both 2 times a d... Start Date: 10/24/21 Status: Ordered Flovent Diskus 100 mcg/inh inhalation powder 1 puffs, Inhalation, 2 times a day, # 120 each, 0 Refills, Maintenance, 10/24/21 15:29:00 EST, [place], [facility] #[id number], Partial fill upon patient request if the [...] 0 Refills, Maintenance, 10/27/21 11:26:00 EST, [place], [facility] #[id number], Partial fill upon patient request if the [...]
--- OUTSIDE RECORDS SUMMARY | 2024-04-12 01:02 | XMS_ITS | Continuity of Care Document ---
Author Organization [facility] Melo Address [address] [place] [address]- Care Team Providers Care Printed Circuit Boards Solder Leveler Name Role Phone Daniel RODRIGUEZ, Isela Primary Care Physician [place] [facility] [place] 10/24/21 - 12/28/21 [facility] Adult [address] [place] [address]- Attending Physician: Isela Sanchez NP Referring Physician: Monster Diehl MD Immunizations Given and Recorded Vaccine Date Status [...] 10/24/21 15:19:00 EST, Route to Pharmacy Electronically, [facility] #[id number], Partial fill upon patient request if the [...] tablet, 0 Refills, Maintenance, 10/26/21 12:49:00 EST, [facility] #[id number], Partial fill upon patient request if the prescription is for a schedule II opioid drug., 157, cm, 10/24/21 14:39:00 EST... Start Date: 10/26/21 Stop Date: 10/28/21 Status: Ordered clonazePAM 1 mg oral tablet See Instructions, take 0.5 tablet, as needed for anxiety, do not take more than 1 tablets/day., # 7tablet, 0 Refills, Maintenance, 10/18/21 10:34:00 EST, Tablet, [facility] #[id number], Partialfill upon patient request if the prescription [...] Gm, 0 Refills, Maintenance, 10/24/21 15:29:00 EST, [place], [facility] #[id number], Partial fill upon patient request if the prescription is for a schedule II opioid drug., 1 sprays Nares, Both 2 times a d... Start Date: 10/24/21 Status: Ordered Flovent Diskus 100 mcg/inh inhalation powder 1 puffs, Inhalation, 2 times a day, # 120 each, 0 Refills, Maintenance, 10/24/21 15:29:00 EST, [place], [facility] #[id number], Partial fill upon patient request if the [...] 0 Refills, Maintenance, 10/27/21 11:26:00 EST, [place], [facility] #[id number], Partial fill upon patient request if the [...]
--- OUTSIDE RECORDS SUMMARY | 2024-04-12 01:02 | XMS_ITS | Continuity of Care Document ---
Author Organization [facility] Melo lt Address [address] [place] [address]- Care Team Providers Care Pharmaceutical Salesperson Name Role Phone Daniel RODRIGUEZ, Isela Primary Care Physician Encounter [facility] [place] Date(s): 10/16/21 - 11/15/21 [facility] Adult [address] [place] [address]- Immunizations Given and Recorded Vaccine Date Status [...] 10/24/21 15:19:00 EST, Route to Pharmacy Electronically, [facility] #[id number], Partial fill upon patient request if the [...] tablet, 0 Refills, Maintenance, 10/26/21 12:49:00 EST, [facility] #[id number], Partial fill upon patient request if the prescription is for a schedule II opioid drug., 157, cm, 10/24/21 14:39:00 EST... Start Date: 10/26/21 Stop Date: 10/28/21 Status: Ordered clonazePAM 1 mg oral tablet See Instructions, take 0.5 tablet, as needed for anxiety, do not take more than 1 tablets/day., # 7tablet, 0 Refills, Maintenance, 10/18/21 10:34:00 EST, [place], [facility] #[id number], Partialfill upon patient request if the prescription [...] Gm, 0 Refills, Maintenance, 10/24/21 15:29:00 EST, [place], [facility] #[id number], Partial fill upon patient request if the prescription is for a schedule II opioid drug., 1 sprays Nares, Both 2 times a d... Start Date: 10/24/21 Status: Ordered Flovent Diskus 100 mcg/inh inhalation powder 1 puffs, Inhalation, 2 times a day, # 120 each, 0 Refills, Maintenance, 10/24/21 15:29:00 EST, [place], [facility] #[id number], Partial fill upon patient request if the [...] 0 Refills, Maintenance, 10/27/21 11:26:00 EST, [place], [facility] #[id number], Partial fill upon patient request if the [...]
--- OUTSIDE RECORDS SUMMARY | 2024-04-12 01:02 | XMS_ITS | Continuity of Care Document ---
Author Organization [facility] [place] Melo lt Address [address] [place] [address]- Care Team Providers Care Copywriter Name Role Phone Daniel RODRIGUEZ, Isela Primary Care Physician [phone] Encounter [facility] [place] Date(s): 08/21/21 - 11/01/21 [facility] Adult [address] [place] [address]- Attending Physician: Hawa Pradhan NP Immunizations Given and Recorded Vaccine Date [...] 10/24/21 15:19:00 EST, Route to Pharmacy Electronically, [facility] #[id number], Partial fill upon patient request if the [...] tablet, 0 Refills, Maintenance, 10/26/21 12:49:00 EST, [facility] #[id number], Partial fill upon patient request if the prescription is for a schedule II opioid drug., 157, cm, 10/24/21 14:39:00 EST... Start Date: 10/26/21 Stop Date: 10/28/21 Status: Ordered clonazePAM 1 mg oral tablet See Instructions, take 0.5 tablet, as needed for anxiety, do not take more than 1 tablets/day., # 7tablet, 0 Refills, Maintenance, 10/18/21 10:34:00 EST, Tablet, [facility] #[id number], Partialfill upon patient request if the prescription [...] Gm, 0 Refills, Maintenance, 10/24/21 15:29:00 EST, [place], [facility] #[id number], Partial fill upon patient request if the prescription is for a schedule II opioid drug., 1 sprays Nares, Both 2 times a d... Start Date: 10/24/21 Status: Ordered Flovent Diskus 100 mcg/inh inhalation powder 1 puffs, Inhalation, 2 times a day, # 120 each, 0 Refills, Maintenance, 10/24/21 15:29:00 EST, [place], [facility] #[id number], Partial fill upon patient request if the [...] 0 Refills, Maintenance, 10/27/21 11:26:00 EST, [place], [facility] #[id number], Partial fill upon patient request if the [...]
--- OUTSIDE RECORDS SUMMARY | 2024-04-12 01:02 | XMS_ITS | Continuity of Care Document ---
Author Organization [facility] Melo lt Address [address] [place] [address]- Care Team Providers Care Nitroglycerin Neutralizer Name Role Phone Daniel RODRIGUEZ, Isela Primary Care Physician [phone] [place] [facility] [place] 11/25/21 [facility] Adult [address] [place] [address]- Immunizations Given and Recorded Vaccine Date Status [...] 10/24/21 15:19:00 EST, Route to Pharmacy Electronically, [facility] #[id number], Partial fill upon patient request if the [...] tablet, 0 Refills, Maintenance, 10/26/21 12:49:00 EST, [facility] #[id number], Partial fill upon patient request if the prescription is for a schedule II opioid drug., 157, cm, 10/24/21 14:39:00 EST... Start Date: 10/26/21 Stop Date: 10/28/21 Status: Ordered clonazePAM 1 mg oral tablet See Instructions, take 0.5 tablet, as needed for anxiety, do not take more than 1 tablets/day., # 7tablet, 0 Refills, Maintenance, 10/18/21 10:34:00 EST, [place], [facility] #[id number], Partialfill upon patient request if the prescription [...] Gm, 0 Refills, Maintenance, 10/24/21 15:29:00 EST, [place], [facility] #[id number], Partial fill upon patient request if the prescription is for a schedule II opioid drug., 1 sprays Nares, Both 2 times a d... Start Date: 10/24/21 Status: Ordered Flovent Diskus 100 mcg/inh inhalation powder 1 puffs, Inhalation, 2 times a day, # 120 each, 0 Refills, Maintenance, 10/24/21 15:29:00 EST, [place], [facility] #[id number], Partial fill upon patient request if the [...] 0 Refills, Maintenance, 10/27/21 11:26:00 EST, [place], [facility] #[id number], Partial fill upon patient request if the [...]
--- OUTSIDE RECORDS SUMMARY | 2024-04-12 01:02 | XMS_ITS | Continuity of Care Document ---
Author Organization [facility] [place] Melo lt Address [address] [place] [address]- Care Team Providers Care Chancery Clerk Name Role Phone Daniel RODRIGUEZ, Isela Primary Care Physician [place] [facility] [place] 10/26/21 - 11/25/21 [facility] [place] Adult [address] [place] [address]- Immunizations Given and Recorded Vaccine Date Status [...] 10/24/21 15:19:00 EST, Route to Pharmacy Electronically, [facility] #[id number], Partial fill upon patient request if the [...] tablet, 0 Refills, Maintenance, 10/26/21 12:49:00 EST, [facility] #[id number], Partial fill upon patient request if the prescription is for a schedule II opioid drug., 157, cm, 10/24/21 14:39:00 EST... Start Date: 10/26/21 Stop Date: 10/28/21 Status: Ordered clonazePAM 1 mg oral tablet See Instructions, take 0.5 tablet, as needed for anxiety, do not take more than 1 tablets/day., # 7tablet, 0 Refills, Maintenance, 10/18/21 10:34:00 EST, [place], [facility] #[id number], Partialfill upon patient request if the prescription [...] Gm, 0 Refills, Maintenance, 10/24/21 15:29:00 EST, [place], [facility] #[id number], Partial fill upon patient request if the prescription is for a schedule II opioid drug., 1 sprays Nares, Both 2 times a d... Start Date: 10/24/21 Status: Ordered Flovent Diskus 100 mcg/inh inhalation powder 1 puffs, Inhalation, 2 times a day, # 120 each, 0 Refills, Maintenance, 10/24/21 15:29:00 EST, [place], [facility] #[id number], Partial fill upon patient request if the [...] 0 Refills, Maintenance, 10/27/21 11:26:00 EST, [place], [facility] #[id number], Partial fill upon patient request if the [...]
--- OUTSIDE RECORDS SUMMARY | 2024-04-12 01:02 | XMS_ITS | Continuity of Care Document ---
Author Organization [facility] Melo lt Address [address] [place] [address]- Care Team Providers Care Database Technician Name Role Phone Daniel RODRIGUEZ, Isela Primary Care Physician Encounter [facility] Date(s): 10/26/21 - 11/25/21 [facility] Adult [address] [place] [address]- Immunizations Given and Recorded Vaccine Date Status [...] 10/24/21 15:19:00 EST, Route to Pharmacy Electronically, [facility] #[id number], Partial fill upon patient request if the [...] tablet, 0 Refills, Maintenance, 10/26/21 12:49:00 EST, [facility] #[id number], Partial fill upon patient request if the prescription is for a schedule II opioid drug., 157, cm, 10/24/21 14:39:00 EST... Start Date: 10/26/21 Stop Date: 10/28/21 Status: Ordered clonazePAM 1 mg oral tablet See Instructions, take 0.5 tablet, as needed for anxiety, do not take more than 1 tablets/day., # 7tablet, 0 Refills, Maintenance, 10/18/21 10:34:00 EST, [place], [facility] #[id number], Partialfill upon patient request if the prescription [...] Gm, 0 Refills, Maintenance, 10/24/21 15:29:00 EST, [place], [facility] #[id number], Partial fill upon patient request if the prescription is for a schedule II opioid drug., 1 sprays Nares, Both 2 times a d... Start Date: 10/24/21 Status: Ordered Flovent Diskus 100 mcg/inh inhalation powder 1 puffs, Inhalation, 2 times a day, # 120 each, 0 Refills, Maintenance, 10/24/21 15:29:00 EST, [place], [facility] #[id number], Partial fill upon patient request if the [...] 0 Refills, Maintenance, 10/27/21 11:26:00 EST, [place], [facility] #[id number], Partial fill upon patient request if the [...]
--- OUTSIDE RECORDS SUMMARY | 2024-04-12 01:02 | XMS_ITS | Continuity of Care Document ---
Author Organization [facility] Melo lt Address [address] [place] [address]- Care Team Providers Care Curriculum Counselor Name Role Phone Amy LOPES, [facility] Primary Care Physician [phone] Encounter [facility] Date(s): 08/29/21 - 09/28/21 [facility] Adult [address] [place] [address]-
--- OUTSIDE RECORDS SUMMARY | 2024-04-12 01:02 | XMS_ITS | Continuity of Care Document ---
Author Organization [facility] Melo lt Address [address] [place] [address]- Care Team Providers Care Taxation Inspector Name Role Phone Daniel RODRIGUEZ, Isela Primary Care Physician Encounter [facility] [place] Date(s): 10/25/21 - 11/24/21 [facility] Adult [address] [place] [address]- Immunizations Given and Recorded Vaccine Date Status [...] 10/24/21 15:19:00 EST, Route to Pharmacy Electronically, [facility] #[id number], Partial fill upon patient request if the [...] tablet, 0 Refills, Maintenance, 10/26/21 12:49:00 EST, [facility] #[id number], Partial fill upon patient request if the prescription is for a schedule II opioid drug., 157, cm, 10/24/21 14:39:00 EST... Start Date: 10/26/21 Stop Date: 10/28/21 Status: Ordered clonazePAM 1 mg oral tablet See Instructions, take 0.5 tablet, as needed for anxiety, do not take more than 1 tablets/day., # 7tablet, 0 Refills, Maintenance, 10/18/21 10:34:00 EST, [place], [facility] #[id number], Partialfill upon patient request if the prescription [...] Gm, 0 Refills, Maintenance, 10/24/21 15:29:00 EST, [place], [facility] #[id number], Partial fill upon patient request if the prescription is for a schedule II opioid drug., 1 sprays Nares, Both 2 times a d... Start Date: 10/24/21 Status: Ordered Flovent Diskus 100 mcg/inh inhalation powder 1 puffs, Inhalation, 2 times a day, # 120 each, 0 Refills, Maintenance, 10/24/21 15:29:00 EST, [place], [facility] #[id number], Partial fill upon patient request if the [...] 0 Refills, Maintenance, 10/27/21 11:26:00 EST, [place], [facility] #[id number], Partial fill upon patient request if the [...]
--- OUTSIDE RECORDS SUMMARY | 2024-04-12 01:02 | XMS_ITS | Continuity of Care Document ---
Author Organization [facility] Address [address] [place] [address]- Care Team Providers Care Scientific Informatics Analyst Name Role Phone Isela Sanchez NP Primary Care Physician Encounter [facility] Date(s): 10/13/21 - 11/12/21 [facility] [address] [place] [id number] Immunizations Given and Recorded Vaccine Date Status [...] 10/24/21 15:19:00 EST, Route to Pharmacy Electronically, [facility] #[id number], Partial fill upon patient request if the [...] tablet, 0 Refills, Maintenance, 10/26/21 12:49:00 EST, [facility] #[id number], Partial fill upon patient request if the prescription is for a schedule II opioid drug., 157, cm, 10/24/21 14:39:00 EST... Start Date: 10/26/21 Stop Date: 10/28/21 Status: Ordered clonazePAM 1 mg oral tablet See Instructions, take 0.5 tablet, as needed for anxiety, do not take more than 1 tablets/day., # 7tablet, 0 Refills, Maintenance, 10/18/21 10:34:00 EST, [place], [facility] #[id number], Partialfill upon patient request if the prescription [...] Gm, 0 Refills, Maintenance, 10/24/21 15:29:00 EST, [place], [facility] #[id number], Partial fill upon patient request if the prescription is for a schedule II opioid drug., 1 sprays Nares, Both 2 times a d... Start Date: 10/24/21 Status: Ordered Flovent Diskus 100 mcg/inh inhalation powder 1 puffs, Inhalation, 2 times a day, # 120 each, 0 Refills, Maintenance, 10/24/21 15:29:00 EST, [place], [facility] #[id number], Partial fill upon patient request if the [...] 0 Refills, Maintenance, 10/27/21 11:26:00 EST, [place], [facility] #[id number], Partial fill upon patient request if the [...]
--- OUTSIDE RECORDS SUMMARY | 2024-04-12 01:02 | XMS_ITS | Continuity of Care Document ---
Author Organization [facility] Address [address] [place] [address]- Care Team Providers Care Lpc Name Role Phone Isela Sanchez NP Primary Care Physician Encounter [facility] [place] Date(s): 10/20/21 - 11/19/21 [facility] [address] [place] [id number] Immunizations Given and Recorded Vaccine Date [...] 10/24/21 15:19:00 EST, Route to Pharmacy Electronically, [facility] #[id number], Partial fill upon patient request if the [...] tablet, 0 Refills, Maintenance, 10/26/21 12:49:00 EST, [facility] #[id number], Partial fill upon patient request if the prescription is for a schedule II opioid drug., 157, cm, 10/24/21 14:39:00 EST... Start Date: 10/26/21 Stop Date: 10/28/21 Status: Ordered clonazePAM 1 mg oral tablet See Instructions, take 0.5 tablet, as needed for anxiety, do not take more than 1 tablets/day., # 7tablet, 0 Refills, Maintenance, 10/18/21 10:34:00 EST, [place], [facility] #[id number], Partialfill upon patient request if the prescription [...] Gm, 0 Refills, Maintenance, 10/24/21 15:29:00 EST, [place], [facility] #[id number], Partial fill upon patient request if the prescription is for a schedule II opioid drug., 1 sprays Nares, Both 2 times a d... Start Date: 10/24/21 Status: Ordered Flovent Diskus 100 mcg/inh inhalation powder 1 puffs, Inhalation, 2 times a day, # 120 each, 0 Refills, Maintenance, 10/24/21 15:29:00 EST, [place], [facility] #[id number], Partial fill upon patient request if the [...] 0 Refills, Maintenance, 10/27/21 11:26:00 EST, [place], [facility] #[id number], Partial fill upon patient request if the [...]
--- OUTSIDE RECORDS SUMMARY | 2024-04-12 01:02 | XMS_ITS | Continuity of Care Document ---
Author Organization [facility] [place] Melo lt Address [address] [place] [address]- Care Team Providers Care Magician/Illusionist Name Role Phone Daniel RODRIGUEZ, Isela Primary Care Physician [place] [facility] [place](s): 11/13/21 - 12/13/21 [facility] [place] Adult [address] [place] [address]- Attending Physician: AdmNilo mckoy Admitting Physician: AdmtrNilo Referring Physician: Admtr, Ar8 Immunizations Given and Recorded Vaccine Date Status [...] 10/24/21 15:19:00 EST, Route to Pharmacy Electronically, [facility] #[id number], Partial fill upon patient request if the [...] tablet, 0 Refills, Maintenance, 10/26/21 12:49:00 EST, [facility] #[id number], Partial fill upon patient request if the prescription is for a schedule II opioid drug., 157, cm, 10/24/21 14:39:00 EST... Start Date: 10/26/21 Stop Date: 10/28/21 Status: Ordered clonazePAM 1 mg oral tablet See Instructions, take 0.5 tablet, as needed for anxiety, do not take more than 1 tablets/day., # 7tablet, 0 Refills, Maintenance, 10/18/21 10:34:00 EST, [place], [facility] #[id number], Partialfill upon patient request if the prescription [...] Gm, 0 Refills, Maintenance, 10/24/21 15:29:00 EST, [place], [facility] #[id number], Partial fill upon patient request if the prescription is for a schedule II opioid drug., 1 sprays Nares, Both 2 times a d... Start Date: 10/24/21 Status: Ordered Flovent Diskus 100 mcg/inh inhalation powder 1 puffs, Inhalation, 2 times a day, # 120 each, 0 Refills, Maintenance, 10/24/21 15:29:00 EST, [place], [facility] #[id number], Partial fill upon patient request if the [...] 0 Refills, Maintenance, 10/27/21 11:26:00 EST, [place], [facility] #[id number], Partial fill upon patient request if the [...]
--- OUTSIDE RECORDS SUMMARY | 2024-04-12 01:03 | XMS_ITS | Continuity of Care Document ---
Author Organization [facility] Melo lt Address [address] [place] [address]- Care Team Providers Care Automobile Body Repair Chief Name Role Phone Daniel RODRIGUEZ, Isela Primary Care Physician Encounter [facility] [place] Date(s): 10/24/21 - 12/13/21 [facility] Adult [address] [place] [address]- Attending Physician: Isela Sanchez NP Referring Physician: Shanita LOPES, [employer] Immunizations Given and Recorded Vaccine Date Status [...] 10/24/21 15:19:00 EST, Route to Pharmacy Electronically, [facility] #[id number], Partial fill upon patient request if the [...] tablet, 0 Refills, Maintenance, 10/26/21 12:49:00 EST, [facility] #[id number], Partial fill upon patient request if the prescription is for a schedule II opioid drug., 157, cm, 10/24/21 14:39:00 EST... Start Date: 10/26/21 Stop Date: 10/28/21 Status: Ordered clonazePAM 1 mg oral tablet See Instructions, take 0.5 tablet, as needed for anxiety, do not take more than 1 tablets/day., # 7tablet, 0 Refills, Maintenance, 10/18/21 10:34:00 EST, [place], [facility] #[id number], Partialfill upon patient request if the prescription [...] Gm, 0 Refills, Maintenance, 10/24/21 15:29:00 EST, [place], [facility] #[id number], Partial fill upon patient request if the prescription is for a schedule II opioid drug., 1 sprays Nares, Both 2 times a d... Start Date: 10/24/21 Status: Ordered Flovent Diskus 100 mcg/inh inhalation powder 1 puffs, Inhalation, 2 times a day, # 120 each, 0 Refills, Maintenance, 10/24/21 15:29:00 EST, [place], [facility] #[id number], Partial fill upon patient request if the [...] 0 Refills, Maintenance, 10/27/21 11:26:00 EST, [place], [facility] #[id number], Partial fill upon patient request if the [...]
--- OUTSIDE RECORDS SUMMARY | 2024-04-12 01:03 | XMS_ITS | Continuity of Care Document ---
Author Organization [facility] Melo lt Address [address] [place] [address]- Care Team Providers Care Turbo Electric Operator Name Role Phone Isela Sanchez NP Primary Care Physician Encounter [facility] [place] Date(s): 10/24/21 - 10/31/21 [facility] Adult [address] [place] [address]- Encounter Diagnosis Anxiety(Discharge Diagnosis) - 10/24/21 Depression(Discharge Diagnosis) - 10/24/21 Macrocytic anemia with vitamin B12 deficiency(Discharge Diagnosis) - 10/24/21 COPD with emphysema(Discharge Diagnosis) - 10/24/21 History of substance abuse(Discharge Diagnosis) - 10/24/21 HTN (hypertension)(Discharge Diagnosis) - 10/24/21 Nasal congestion(Discharge Diagnosis) - 10/24/21 Attending Physician: Isela Sanchez NP Referring Physician: [...] 10/24/21 15:19:00 EST, Route to Pharmacy Electronically, [facility] #[id number], Partial fill upon patient request if the [...] tablet, 0 Refills, Maintenance, 10/26/21 12:49:00 EST, [facility] #[id number], Partial fill upon patient request if the prescription is for a schedule II opioid drug., 157, cm, 10/24/21 14:39:00 EST... Start Date: 10/26/21 Stop Date: 10/28/21 Status: Ordered clonazePAM 1 mg oral tablet See Instructions, take 0.5 tablet, as needed for anxiety, do not take more than 1 tablets/day., # 7tablet, 0 Refills, Maintenance, 10/18/21 10:34:00 EST, [place], [facility] #[id number], Partialfill upon patient request if the prescription [...] Gm, 0 Refills, Maintenance, 10/24/21 15:29:00 EST, [place], [facility] #[id number], Partial fill upon patient request if the prescription is for a schedule II opioid drug., 1 sprays Nares, Both 2 times a d... Start Date: 10/24/21 Status: Ordered Flovent Diskus 100 mcg/inh inhalation powder 1 puffs, Inhalation, 2 times a day, # 120 each, 0 Refills, Maintenance, 10/24/21 15:29:00 EST, [place], [facility] #[id number], Partial fill upon patient request if the [...] 0 Refills, Maintenance, 10/27/21 11:26:00 EST, [place], [facility] #[id number], Partial fill upon patient request if the [...] Effective Dates Health Status Clinical Service Informant Anxiety Discharge Diagnosis 10/24/21 HTN (hypertension) Discharge Diagnosis 10/24/21 History of substance abuse Discharge Diagnosis 10/24/21 COPD with emphysema Discharge Diagnosis 10/24/21 Macrocytic anemia with vitamin B12 deficiency Discharge Diagnosis 10/24/21 Depression Discharge Diagnosis 10/24/21 Nasal congestion Discharge Diagnosis 10/24/21 Vital Signs Most recent to oldest [Reference Range]: 1 2 3 Height 157 cm (10/24/21 2:39 PM) 157 cm (10/24/21 2:39 PM) 157 cm (10/24/21 2:28 PM) Weight 72.8 kg (10/24/21 2:28 PM) Oxygen Saturation [94-100 %] 95 % (10/24/21 2:28 PM) Pulse Rate [55-90 bpm] 96 bpm *H* (10/24/21 2:28 PM) Body Mass Index [18.5-24.99] 29.53 *H* (10/24/21 2:28 PM) Blood Pressure [90-138/55-84 mm Hg] 151/77mm Hg *H* (10/24/21 2:39 PM) 157/85mm Hg *H* (10/24/21 2:39 PM) 163/92mm Hg *H* (10/24/21 2:28 PM) Blood pressure sites Arm, right (10/24/21 2:28 PM) Social History Social History Type Response Smoking Status Former smoker, quit more than 30 days ago; Other: quit 8 month ago; entered on: 10/11/21 Sex
--- OUTSIDE RECORDS SUMMARY | 2024-04-12 01:03 | XMS_ITS | Continuity of Care Document ---
Author Organization [facility] Melo lt Address [address] [place] [address]- Care Team Providers Care Lacquer Pin Press Operator Name Role Phone Isela Sanchez NP Primary Care Physician Encounter [facility] Date(s): 10/27/21 - 11/03/21 [facility] Adult [address] [place] [address]- Encounter Diagnosis Anxiety(Discharge Diagnosis) - 10/27/21 Attending Physician: Isela Sanchez NP Immunizations Given and Recorded Vaccine Date Status Refusal Reason influenza virus vaccine, inactivated 10/10/21 Give n influenza virus vaccine, inactivated 09/05/20 [facility] rded influenza virus vaccine, inactivated 09/07/19 [facility] influenza virus vaccine, inactivated 08/12/18 [facility] influenza virus vaccine, inactivated 08/08/17 [facility] influenza virus vaccine, inactivated 08/17/16 [facility] rded influenza virus vaccine, inactivated 10/03/15 [facility] [...] 10/24/21 15:19:00 EST, Route to Pharmacy Electronically, [facility] #[id number], Partial fill upon patient request if the [...] tablet, 0 Refills, Maintenance, 10/26/21 12:49:00 EST, [facility] #[id number], Partial fill upon patient request if the prescription is for a schedule II opioid drug., 157, cm, 10/24/21 14:39:00 EST... Start Date: 10/26/21 Stop Date: 10/28/21 Status: Ordered clonazePAM 1 mg oral tablet See Instructions, take 0.5 tablet, as needed for anxiety, do not take more than 1 tablets/day., # 7tablet, 0 Refills, Maintenance, 10/18/21 10:34:00 EST, [place], [facility] #[id number], Partialfill upon patient request if the prescription [...] Gm, 0 Refills, Maintenance, 10/24/21 15:29:00 EST, [place], [facility] #[id number], Partial fill upon patient request if the prescription is for a schedule II opioid drug., 1 sprays Nares, Both 2 times a d... Start Date: 10/24/21 Status: Ordered Flovent Diskus 100 mcg/inh inhalation powder 1 puffs, Inhalation, 2 times a day, # 120 each, 0 Refills, Maintenance, 10/24/21 15:29:00 EST, [place], [facility] #[id number], Partial fill upon patient request if the [...] 0 Refills, Maintenance, 10/27/21 11:26:00 EST, [place], [facility] #[id number], Partial fill upon patient request if the [...] Diagnosis Diagnosis Type Effective Dates Health Status Clini davide Service Informant Anxiety Discharge Diagnosis 10/27/21 Vital Signs Most recent to oldest [Reference Range]: 1 Height 157 cm (10/27/21 10:43 AM) Pulse Rate [55-90 bpm] 87 bpm (10/27/21 10:43 AM) Blood Pressure [90-138/55-84 mm Hg] 143/ 91mm Hg *H* (10/27/21 10:43 AM) Social History Social History Type Response Smoking Status Former smoker, quit more than 30 days ago; Other: quit 8 month ago; entered on: 10/11/21 Sex
[2024-04-12] MEDS: Doxycycline Monohydrate 100 MG CAPSULE PO (01:11)
--- NOTE | 2024-04-12 01:12 | PC.NURSE ---
Pt medicated per jan. Plan of care ongoing.
[2024-04-12 01:24] VITALS: BP 121/52; PULSE 67; RESP 16; TEMP 36.4; O2SAT 97
--- NOTE | 2024-04-12 01:24 | PC.NURSE ---
Pt medicated per jan. Plan of care ongoing.
== END 2024-04-12 01:27 | disposition home or self-care (01) ==
PROVIDERS: Physician Assistant Medical; Emergency Provider Internal Medicine; PCP Physician Assistant
DX: S80.02XA Contusion of left knee, initial encounter (principal); I10 Essential (primary) hypertension; E11.9 Type 2 diabetes mellitus without complications; J44.9 Chronic obstructive pulmonary disease, unspecified; Z86.718 Personal history of other venous thrombosis and embolism; Z79.01 Long term (current) use of anticoagulants; W19.XXXA Unspecified fall, initial encounter; Y93.9 Activity, unspecified; Y92.9 Unspecified place or not applicable; Y99.9 Unspecified external cause status
CPT/HCPCS: 36415; 70450; 73562; 80048; 80076; 82550; 83735; 84484; 85025; 93005; 99284; 99285

== ENCOUNTER → 2024-04-11 17:20 | Outpatient (BNV) | payer OTHER, SELFPAY | PROVIDERS: Emergency Provider Internal Medicine; PCP Physician Assistant; Visit Provider Internal Medicine Cardiovascular Disease | DX: R55 Syncope and collapse (principal) | CPT/HCPCS: 93010 ==

== ENCOUNTER 2024-05-07 09:18 | Outpatient (REF) | payer OTHER, SELFPAY ==
[2024-05-07 13:42] LABS: Anion Gap 12 (12-20); Blood Urea Nitrogen 22 mg/dL (9-16); Carbon Dioxide 27 mmol/L (22-29); Chloride 100 mmol/L (96-108); Estimated Glomerular Filt Rate 33; Glucose Random 88 mg/dL (60-115); Potassium 3.9 mmol/L (3.3-5.1); Sodium 135 mmol/L (135-145)
== END 2024-05-07 09:19 | disposition home or self-care (01) ==
LOC: HO.LAB 09:18
PROVIDERS: PCP Physician Assistant; Visit Provider Physician Assistant
DX: N17.9 Acute kidney failure, unspecified (principal); I10 Essential (primary) hypertension
CPT/HCPCS: 36415; 80048

== ENCOUNTER 2024-05-07 09:44 | Outpatient (AMB) | payer OTHER, SELFPAY ==
[2024-05-07 09:48] VITALS: BP 110/76; PULSE 82; O2SAT 99; BMI 37.3
--- NOTE | 2024-05-07 09:48 | A.OFFPC_ITS ---
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 Required: No Phosphoric Acid Supervisor: Present Accompanied by: ADHESION TESTER Allergies cat dander [CATS] Allergy (Mild, Verified 05/07/24 10:03) HAYFEVER Chocolate Allergy (Mild, Verified 05/07/24 10:03) HEADACHES dog dander [DOGS] Allergy (Mild, Verified 05/07/24 10:03) HAYFEVER Environmental Allergy (Mild, Uncoded 05/07/24 10:03) HAYFEVER yellow jackets Allergy (Uncoded 05/07/24 10:03) Anaphylaxis Medication List - Last Reconciled 05/07/24 by Sudhir Martin PA-C acetaminophen (Pain Relief (acetaminophen)) 500 mg PO BID 90 days acetaminophen-codeine 300-30 mg 1 tab PO Q6H PRN [adult pullups As directed] albuterol sulfate 90 mcg/actuation (Ventolin HFA) 2 puffs inhalation QID PRN 30 days alendronate (Fosamax) 70 mg PO QWEEK 12 weeks amitriptyline 50 mg PO BEDTIME 90 days apixaban (Eliquis) 5 mg PO BID 90 days azelastine-fluticasone 137-50 mcg/spray (Dymista) 1 spray intranasal BID 30 days back brace As directed baclofen 20 mg PO BEDTIME 90 days [bed pads As directed] cane As directed cholecalciferol (vitamin D3) 50 mcg PO DAILY 90 days clonazepam 0.5 mg PO BID compr.stocking,knee,long,large As directed diaper,brief,adult,disposable As directed diphenhydramine HCl (Banophen) 25 mg PO Q8H 90 days [disposable face masks As directed] disposable gloves As directed doxycycline hyclate 100 mg PO BID epinephrine (EpiPen 2-Kamaljit) 0.3 mg (0.3 mL) IM ONCE PRN 30 days fluticasone furoate-vilanterol 200-25 mcg/dose (Breo Ellipta) 1 inh inhalation DAILY 30 days tbtaclmcswp-lqjhaeqph-dukpciwk 200-62.5-25 mcg (Trelegy Ellipta) 1 inh inhalation DAILY 30 days folic acid 1 mg PO DAILY 90 days furosemide 20 mg PO Q OTHER DAY 90 days gabapentin 200 mg (2 x 100 mg) PO BEDTIME 90 days gabapentin 400 mg PO BEDTIME humidifiers (Cool Mist Humidifier) As directed incontinence pad, liner, disp As directed leg brace (Knee Support Brace) As directed lidocaine 5% 1 patch topical DAILY 30 days loperamide 2 mg PO Q8H PRN 90 days magnesium oxide 400 mg PO BEDTIME 90 days miscellaneous medical supply 1 ea miscellaneous DAILY 99 days montelukast 10 mg PO DAILY 90 days omeprazole 20 mg PO DAILY 90 days primidone 100 mg (2 x 50 mg) PO BID 90 days pseudoephedrine HCl ER 120 mg PO Q12H 30 days [round raised toilet seat As directed] [soft neck brace As directed] topiramate (Topamax) 200 mg PO BID 90 days triamcinolone acetonide 0.5% 1 appl topical DAILY 90 days umeclidinium 62.5 mcg/actuation (Incruse Ellipta) 1 inh inhalation DAILY 30 days vitamin B complex 1 tab PO DAILY 90 days walker (Ultra-Light Rollator misc) As directed zolpidem 10 mg PO BEDTIME Tobacco use date assessed: 02/05/24 Dental Screening Dental Screen Date: 02/05/24 HPI MRI on Left KNEE HPI Details Patient is 63-year-old female here today for problem visit. Has been having discomfort in her left knee and swelling. She reports slipping in her bathroom hyperextending her bilateral knees worse on her left. She was seen at the ER and got x-rays which did not show any fractures. There were concerns for soft tissue injury. She is asking for MRI to evaluate for any ligament or meniscal tears. Most of her pain is located over the medial aspect of her left knee and does have some notable swelling. [facility] Medical History Allergies Chronic allergic rhinitis Asthma-COPD overlap syndrome COPD exacerbation COVID-19 History of abnormal cervical Pap smear Spinal stenosis, cervical region Peripheral polyneuropathy Spondylosis of cervical spine Spondylosis of lumbar spine Cocaine abuse Alcohol abuse Hepatitis HIV (human immunodeficiency virus infection) Heart murmur History of cocaine abuse History of heroin abuse Hydradenitis Former cigarette smoker Recovering alcoholic GERD (gastroesophageal reflux disease) Lumbago with sciatica, left side Arthritis Back pain On anticoagulant therapy DVT (deep venous thrombosis) History of celiac disease Anxiety Panic attacks Depression PTSD (post-traumatic stress disorder) Parkinson disease History of frequent headaches Seizure Asthma Surgical History H/O excision of ganglion cyst Hx of esophagogastroduodenoscopy History of carpal tunnel surgery of left wrist Hx of nasal septoplasty History of hemorrhoidectomy Hx of colonoscopy Family History Mother No problems noted. Social History Housing: Apartment Are you a primary patient care to a significant other at home: No Do you presently have visiting nurse or other home services: Yes Alcohol intake: former Year quit: 2003 Comment: was seen at [facility]-called for note Patient Tobacco Use Status: Current everyday Tobacco user Tobacco use type: Cigarette Cigarette Packs Per Day: 0.5 Cigarettes Per Day: 7 Years Smoked: 45 Packs Per Year: 23 Packs per year/per ci.75 e-Cigarette/Vaping Use: Former Use Second Hand Smoke Exposure: No service: No Current occupational status: disabled Cognitive needs: Yes (back brace) Hearing needs: No Vision needs: Yes Questionnaire Thrive Questionnaire Date Thrive assessed: 02/05/24 LUISA-7 AMB Questionnaire LUISA-7 Date LUISA - 7 assessed: 02/05/24 Source: Developed by Drs. Boris Garcia, Qian Bullard, Hector Herzog and colleagues, with an educational miguel a from [employer]. Review of Systems Const Denies headache(s) Eyes Denies loss of vision ENT Denies vertigo, Denies dizziness, Denies headache(s) and Denies sore throat Card Denies chest pain, Denies leg edema and Denies lightheadedness Resp Denies cough, Denies hemoptysis and Denies wheezing GI Denies abdominal pain, Denies melena, Denies constipation, Denies diarrhea and Denies vomiting Denies urinary frequency, Denies dysuria and Denies urinary urgency Musc Denies arthralgias, Denies joint swelling, Denies numbness and Denies tingling Neuro Denies Abnormal speech present, Denies behavioral changes, Denies vertigo, Denies dizziness, Denies headache(s), Denies loss of vision, Denies memory loss, Denies numbness and Denies tingling Psych Denies anxiety, Denies behavioral changes, Denies depression, Denies memory loss and Denies panic attacks Carlos/Lymph Denies easy bleeding and Denies easy bruising Aller/Immun Denies wheezing Physical exam (Primary Care) Vital Signs: Last Vital Signs Pulse 82 05/07/24 09:48 BP 110/76 05/07/24 09:48 Pulse Ox 99 05/07/24 09:48 Oxygen Delivery Method Room Air 05/07/24 09:48 BMI result Body Mass Index 37.3 Tobacco/Smoking Status: Tobacco use Status Tobacco use date assessed 02/05/24 05/07/24 09:50 Patient Tobacco Use Status Current everyday Tobacco 05/07/24 09:50 Tobacco use type Cigarette 05/07/24 09:50 e-Cigarette/Vaping Use Former Use 05/07/24 09:50 Thrive Assessment: Date of Thrive Assessment Date Thrive assessed 02/05/24 05/07/24 09:50 Const General: healthy appearing, no acute distress, alert and awake Nutritional Appearance: well nourished Orientation/consciousness: oriented to person, oriented to place and oriented to time HENMT Ears: TM's normal bilaterally General nose exam: Normal nasal mucous membranes and turbinates present Eyes Conjunctivae: conjunctivae normal Sclerae: sclerae normal Pupils: Equal, round and reactive pupils present Neck Neck: Yes no lymphadenopathy and Yes no JVD Thyroid: Thyroid normal Carotids: no bruits Resp Effort & Inspection: normal respiratory effort and not tachypneic Auscultation: no crackles, no rales, no rhonchi and no wheezes Cardio Rate: regular rate Rhythm: regular rhythm Heart sounds: no murmurs and normal S1 and S2 GI Palpation (GI): Soft to palpation, nontender, no hepatomegaly and no splenomegaly Auscultation: normal bowel sounds Skin General skin exam: no rashes or lesions noted and dry skin Neuro General: oriented to person, oriented to place and oriented to time Cranial nerves: Yes Equal, round and reactive pupils present Speech: No Abnormal speech present Gait exam (Neuro): Normal gait present Motor exam (neuro): no tremor noted Extrem Other: LEFT KNEE: FULL RANGE OF MOTION TO FLEXION AND EXTENSION. PALPABLE TENDERNESS OVER MEDIAL ASPECT OF THE LEFT KNEE. NO LIGAMENTOUS LAXITY NOTED, NEGATIVE LISBET'S TEST. Right upper extremity: full ROM Left upper extremity: full ROM Right lower extremity: full ROM; no edema Left lower extremity: full ROM; no edema Psych Mental Status: mental status grossly normal Speech and movement: Normal speech and movement present Affect: normal affect Attitude: cooperative Thought process: Normal thought process present Assessment and Plan Assessment & Plan (1) Acute meniscal injury of left knee: Code(s): S83.8X2A - Sprain of other specified parts of left knee, initial encounter Qualifiers: Encounter type: subsequent encounter Qualified Code(s): S83.8X2D - Sprain of other specified parts of left knee, subsequent encounter Plan: Had an acute injury a few weeks ago, x-rays at done at the ER without any acute fractures. Still has pain in the medial aspect of her knee and swelling. Has been doing her own home physical therapy though has not been to effective. Will will try for MRI of the left knee to evaluate for a MCL tear or meniscal injury. Orders: Orders MR knee LT wo con 05/07/24 S83.8X2D - Sprain of other specified parts of left knee, subsequent encounter Comprehensive [place]. Panel Fast 05/07/24 I10 - Essential (primary) hypertension Complete Blood Count no Diff 05/07/24 I10 - Essential (primary) hypertension Lipid Panel 05/07/24 I10 - Essential (primary) hypertension Referrals Orthopedics Referral S83.8X2D - Sprain of other specified parts of left knee, subsequent encounter Medications: Changed From furosemide 20 mg PO Q OTHER DAY 90 days 45 tabs 3RF M79.89 - Other specified soft tissue disorders To furosemide 20 mg PO DAILY 90 tabs 3RF 90 days M79.89 - Other specified soft tissue disorders Refilled amitriptyline 50 mg PO BEDTIME 90 tabs 1RF 90 days G47.00 - Insomnia, unspecified apixaban (Eliquis) 5 mg PO BID 180 tabs 0RF 90 days I82.492 - Acute embolism and thrombosis of other specified deep vein of left lower extremity cholecalciferol (vitamin D3) 50 mcg PO DAILY 90 caps 1RF 90 days E55.9 - Vitamin D deficiency, unspecified, M81.0 - Age-related osteoporosis without current pathological fracture folic acid 1 mg PO DAILY 90 tabs 1RF 90 days E53.8 - Deficiency of other specified B group vitamins gabapentin 400 mg PO BEDTIME 90 caps 3RF M47.816 - Spondylosis without myelopathy or radiculopathy, lumbar region topiramate (Topamax) 200 mg PO BID 180 tabs 3RF 90 days F41.1 - Generalized anxiety disorder alendronate (Fosamax) 70 mg PO QWEEK 12 tabs 1RF 12 weeks M81.0 - Age-related osteoporosis without current pathological fracture baclofen 20 mg PO BEDTIME 90 tabs 1RF 90 days M79.18 - Myalgia, other site gabapentin 200 mg (2 x 100 mg) PO BEDTIME 180 caps 1RF 90 days M48.02 - Spinal stenosis, cervical region montelukast 10 mg PO DAILY 90 tabs 1RF 90 days J30.1 - Allergic rhinitis due to pollen omeprazole 20 mg PO DAILY 90 caps 0RF 90 days R10.13 - Epigastric pain Discontinued doxycycline hyclate Discontinued Reason: Doctor's Order 100 mg PO BID 20 tabs 0RF Coding Level of Care Code Est Pt Level 4 (65932) Diagnoses Acute meniscal injury of left knee, subsequent encounter S83.8X2D Encounter type: subsequent encounter
== END 2024-05-07 10:28 | disposition home or self-care (01) ==
PROVIDERS: PCP Physician Assistant; Visit Provider Physician Assistant
DX: S83.8X2D Sprain of other specified parts of left knee, subsequent encounter (principal)
CPT/HCPCS: 99214

== ENCOUNTER 2024-05-14 12:41 | Outpatient (AMB) | payer OTHER, SELFPAY ==
--- NOTE | 2024-05-14 12:46 | MHC.OFFWIV ---
Intake Vital Signs 05/14/24 12:47 Height 5 ft 2 in BP 130/78 Blood Pressure Location Rt brachial Position Sitting Pulse 76 Pulse Source Pulse Oximeter Temp 98.2 F Temp Source Temporal Artery Scan Pulse Oximetry (%) 97 Intake Visit Reasons: EP rash LT bauer/RT knee swelling Intake Note: pt is here for rash left bauer and right knee is swelling Patient Tobacco Use Status: Current everyday Tobacco user Allergies cat dander [CATS] Allergy (Mild, Verified 05/14/24 12:48) HAYFEVER Chocolate Allergy (Mild, Verified 05/14/24 12:48) HEADACHES dog dander [DOGS] Allergy (Mild, Verified 05/14/24 12:48) HAYFEVER Environmental Allergy (Mild, Uncoded 05/07/24 10:03) HAYFEVER yellow jackets Allergy (Uncoded 05/07/24 10:03) Anaphylaxis Do you need a note to return to daycare/school/sports/work: No HPI HPI Comments History of Present Illness Details Patient is a 63-year-old female complaining of left ankle redness and swelling. She states that 3 days ago, she had a rash on her left ankle that was very itchy so she kept scratching it and eventually broke the skin open whether or nails. She then noticed this morning when she woke up that the area next to the rash is now red and warm and swollen. She denies any fevers. She does state that she is also continuing to have left knee pain and right knee swelling but her dog jumped on the right knee yesterday and she thinks that might be why it is swollen. She says she talk to her PCP, Arie Martin about the left knee pain and she thinks she has an appointment with Orthopedics but she has not heard back from anyone regarding it yet. [facility] Medical History Allergies Chronic allergic rhinitis Asthma-COPD overlap syndrome COPD exacerbation COVID-19 History of abnormal cervical Pap smear Spinal stenosis, cervical region Peripheral polyneuropathy Spondylosis of cervical spine Spondylosis of lumbar spine Cocaine abuse Alcohol abuse Hepatitis HIV (human immunodeficiency virus infection) Heart murmur History of cocaine abuse History of heroin abuse Hydradenitis Former cigarette smoker Recovering alcoholic GERD (gastroesophageal reflux disease) Lumbago with sciatica, left side Arthritis Back pain On anticoagulant therapy DVT (deep venous thrombosis) History of celiac disease Anxiety Panic attacks Depression PTSD (post-traumatic stress disorder) Parkinson disease History of frequent headaches Seizure Asthma Surgical History H/O excision of ganglion cyst Hx of esophagogastroduodenoscopy History of carpal tunnel surgery of left wrist Hx of nasal septoplasty History of hemorrhoidectomy Hx of colonoscopy Family History Mother No problems noted. Social History Housing: Apartment Are you a primary child care sitter to a significant other at home: No Do you presently have visiting nurse or other home services: Yes Alcohol intake: former Year quit: 2003 Comment: was seen at [facility]-called for note Patient Tobacco Use Status: Current everyday Tobacco user Tobacco use type: Cigarette Cigarette Packs Per Day: 0.5 Cigarettes Per Day: 7 Years Smoked: 45 e-Cigarette/Vaping Use: Former Use Second Hand Smoke Exposure: No service: No Current occupational status: disabled Cognitive needs: Yes (back brace) Hearing needs: No Vision needs: Yes Review of Systems Const All systems reviewed & are unremarkable except as noted in HPI and below Physical Exam Vital Signs: Last Vital Signs Temp 98.2 F 05/14/24 12:47 Pulse 76 05/14/24 12:47 BP 130/78 05/14/24 12:47 Pulse Ox 97 05/14/24 12:47 Const General: cooperative, healthy appearing, comfortable, no acute distress and well developed Orientation/consciousness: patient oriented x3 Limitations: no limitations HEENT Head: Yes normal to inspection Eyes General: appearance normal, both eyes and all related structures Neck Neck: Yes normal visual inspection and Yes full ROM Resp Effort & Inspection: normal respiratory effort and able to speak in complete sentences Skin General skin exam: no rashes or lesions noted Neuro General: patient oriented x3 Extrem General: Yes normal to inspection Left lower extremity: lower leg Details: erythema, localized swelling and warmth; no lacerations and no ecchymosis Assessment & Plan Assessment & Plan (1) Cellulitis: Code(s): L03.90 - Cellulitis, unspecified Qualifiers: Site of cellulitis: extremity Site of cellulitis of extremity: lower extremity Laterality: left Qualified Code(s): L03.116 - Cellulitis of left lower limb Plan: Sent RX for cellulitis. Sent message to PCP for follow-up on orthopedics referral. Plan see above Medications: New cefuroxime axetil 500 mg PO Q12H 10 tabs 0RF Coding Level of Care Code Est Pt Level 3 (87599) Diagnoses Cellulitis of left lower extremity L03.116 Site of cellulitis: extremity Site of cellulitis of extremity: lower extremity Laterality: left
[2024-05-14 12:47] VITALS: BP 130/78; PULSE 76; TEMP 36.8; O2SAT 97
== END 2024-05-14 13:42 | disposition home or self-care (01) ==
PROVIDERS: PCP Physician Assistant; Visit Provider Physician Assistant
DX: L03.116 Cellulitis of left lower limb (principal)
CPT/HCPCS: 99213

== ENCOUNTER 2024-05-29 09:07 | Outpatient (AMB) | payer OTHER, SELFPAY ==
--- NOTE | 2024-05-29 09:10 | A.OFFVIS_ITS ---
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 Intake Note: ANTHROPOLOGY AND ARCHEOLOGY INSTRUCTOR Rhonda Media Production Manager: Media Production Manager Present (Sommer) Accompanied by: Other Relationship Allergies cat dander [CATS] Allergy (Mild, Verified 05/29/24 09:12) HAYFEVER Chocolate Allergy (Mild, Verified 05/29/24 09:12) HEADACHES dog dander [DOGS] Allergy (Mild, Verified 05/29/24 09:12) HAYFEVER Environmental Allergy (Mild, Uncoded 05/07/24 10:03) HAYFEVER yellow jackets Allergy (Uncoded 05/07/24 10:03) Anaphylaxis HPI Comments Details: She is a postmenopausal woman 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 She is doing well with concerns: external skin boils in the vulvar region. Attempting to eat a healthy diet with vitamin D. Uses a walker. Denies any vaginal dryness or irritation. Desires to have HIV testing done. No documentation of HIV infection noted in record, comment of possible ex partner with HIV status. She has not been sexually active in many years. Last pap smear; 2021. Hx. of ZIYAD. Last mammogram; 2023. Colonoscopy is UTD. Denies any family history of breast, ovarian or colon cancer. [facility] Medical History Allergies Chronic allergic rhinitis Asthma-COPD overlap syndrome COPD exacerbation COVID-19 History of abnormal cervical Pap smear Spinal stenosis, cervical region Peripheral polyneuropathy Spondylosis of cervical spine Spondylosis of lumbar spine Cocaine abuse Alcohol abuse Hepatitis HIV (human immunodeficiency virus infection) Heart murmur History of cocaine abuse History of heroin abuse Hydradenitis Former cigarette smoker Recovering alcoholic GERD (gastroesophageal reflux disease) Lumbago with sciatica, left side Arthritis Back pain On anticoagulant therapy DVT (deep venous thrombosis) History of celiac disease Anxiety Panic attacks Depression PTSD (post-traumatic stress disorder) Parkinson disease History of frequent headaches Seizure Asthma Surgical History H/O excision of ganglion cyst Hx of esophagogastroduodenoscopy History of carpal tunnel surgery of left wrist Hx of nasal septoplasty History of hemorrhoidectomy Hx of colonoscopy Family History Mother No problems noted. Social History Housing: Apartment Are you a primary hospice care transitions coordinator to a significant other at home: No Do you presently have visiting nurse or other home services: Yes Alcohol intake: former Year quit: 2003 Comment: was seen at [facility]-called for note Patient Tobacco Use Status: Current everyday Tobacco user Tobacco use type: Cigarette Cigarette Packs Per Day: 0.5 Cigarettes Per Day: 7 Years Smoked: 45 e-Cigarette/Vaping Use: Former Use Second Hand Smoke Exposure: No service: No Current occupational status: disabled Cognitive needs: Yes (back brace) Hearing needs: No Vision needs: Yes Female Reproductive History Menstrual Menopause type: natural Total pregnancies: 3 Full term: 1 Number of Living Children: 1 Ab spontaneous: 2 Date of last pap smear: 03/29/22 (neg pap and hpv) History of abnormal pap smear: Yes (01/05 ascus +hpv 02/02 colpo ziyad 1 09/05 ascus 12/08 neg neg) Date of Mammogram: 03/24/24 (Birad 2) Review of Systems Const All systems reviewed & are unremarkable except as noted in HPI and below Reports as per HPI Eyes Reports no additional complaints ENT Reports no additional complaints Card Reports no additional complaints Resp Reports no additional complaints GI Reports as per HPI and Reports no additional complaints Reports as per HPI Musc Reports no additional complaints Skin/Breast Reports as per HPI Neuro Reports no additional complaints Psych Reports no additional complaints Endo Reports no additional complaints Carlos/Lymph Reports no additional complaints Aller/Immun Reports no additional complaints Physical Exam Vital Signs: Last Vital Signs BP 108/64 05/29/24 09:12 BMI result Body Mass Index 36.4 Const General: cooperative, healthy appearing, no acute distress, well developed and alert Orientation/consciousness: patient oriented x3 HEENT Head: Yes normal to inspection Eyes General: appearance normal, both eyes and all related structures Neck Neck: Yes normal visual inspection Thyroid: Thyroid normal Chest Chest palpation & inspection: normal inspection of the chest and other (no puckering, dimpling, peau de orange, retraction, discharge, masses) Breast/axilla inspection: normal inspection of the breasts Breast/axilla palpation: normal palpation of the breasts Resp Effort & Inspection: normal respiratory effort GI Inspection: Yes normal to inspection Palpation (GI): Soft to palpation Rectal Exam - Female: deferred Other: No lesions or boils noted externally. General: Yes bladder normal to palpation External Female Exam: normal external appearance and normal appearance of the urethra Speculum Exam - Vagina: normal appearance of the vagina, normal palpation, normal vaginal discharge and vagina atrophic Speculum Exam - Cervix: normal appearance of the cervix and normal palpation Bimanual exam- vagina & uterus: normal bimanual exam, normal palpation, uterine size normal, bladder normal to palpation, normal palpation and non-tender Bimanual Exam- Adnexa, other: no masses Skin General skin exam: no rashes or lesions noted Rashes: no rashes Neuro General: patient oriented x3 Cognition (Neuro): normal cognition Extrem General: Yes normal to inspection Psych Attitude: cooperative Thought process: Normal thought process present Assessment & Plan Assessment & Plan (1) Encounter for well woman exam with routine gynecological exam: Code(s): Z01.419 - Encounter for gynecological examination (general) (routine) without abnormal findings Category: Medical Plan: Discussed: Current recommendations for pap smears per ASCCP guidelines. Breast awareness, periodic self breast exams and yearly mammogram. Maintain a healthy lifestyle, well balanced diet including Calcium 1,200 mg and Vitamin D 600 IU daily, and routine exercise or remain as active as possible. Use of condoms for STI prevention if indicated. Contact the office with any postmenopausal bleeding. Sign a release of records for prior lab work. Patient verbalizes understanding and agrees to the plan of care. She was given opportunity to ask questions and all questions were answered to the best of my ability. 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 This note is constructed using voice recognition software. While every effort has been made to ensure accuracy, blade balancer errors may have been included. Plan Discussed: Current recommendations for pap smears per ASCCP guidelines. Breast awareness, periodic self breast exams and yearly mammogram. Maintain a healthy lifestyle, well balanced diet including Calcium 1,200 mg and Vitamin D 600 IU daily, and routine exercise. Use of condoms for STI prevention if indicated. Contact the office with any postmenopausal bleeding. Patient verbalizes understanding and agrees to the plan of care. She was given opportunity to ask questions and all questions were answered to the best of my ability. 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 This note is constructed using voice recognition software. While every effort has been made to ensure accuracy, blade balancer errors may have been included. Orders: Orders HIV Ab/Ag Today Z20.2 - Contact with and (suspected) exposure to infections with a predominantly sexual mode of transmission Syphilis Screen Today Z20.2 - Contact with and (suspected) exposure to infections with a predominantly sexual mode of transmission Hepatitis C Antibody Reflex Today Z20.2 - Contact with and (suspected) exposure to infections with a predominantly sexual mode of transmission Hepatitis B Core Antibody Today Z20.2 - Contact with and (suspected) exposure to infections with a predominantly sexual mode of transmission Coding Level of Care Code Est Pt Prev Care 40-64y(30405) Diagnoses Encounter for well woman exam with routine gynecological exam Z01.419
[2024-05-29 09:12] VITALS: BP 108/64; BMI 36.4
== END 2024-05-29 10:39 | disposition home or self-care (01) ==
LOC: HO.HWS 09:07
PROVIDERS: PCP Physician Assistant; Visit Provider Advanced Practice Midwife
DX: Z01.419 Encounter for gynecological examination (general) (routine) without abnormal findings (principal)
CPT/HCPCS: 99396

== ENCOUNTER → 2024-05-29 09:07 | Outpatient (BNVA) | payer OTHER, SELFPAY | PROVIDERS: PCP Physician Assistant; Visit Provider Advanced Practice Midwife | DX: Z01.419 Encounter for gynecological examination (general) (routine) without abnormal findings (principal) | CPT/HCPCS: 99396 ==

== ENCOUNTER 2024-06-15 11:24 | Outpatient (AMB) | payer OTHER, SELFPAY ==
--- NOTE | 2024-06-15 11:25 | A.OFFVIS_ITS ---
Intake Visit Reasons: New prob- LT knee sprain Intake Note: Ashly a 63 year old female who presents today for an evaluation of left knee pain. Patient reports bilateral knee pain with her left knee pain causing the most discomfort, states right knee pain comes with rainy weather. Currently she has constant pain in her left knee and is unable to bear full weight. She uses a walker to ambulate. Hx of falls. She has prescribed mediation that does not give her much relief. States unable to take Tylenol due to kidney condition. Allergies cat dander [CATS] Allergy (Mild, Verified 06/15/24 11:29) HAYFEVER Chocolate Allergy (Mild, Verified 06/15/24 11:29) HEADACHES dog dander [DOGS] Allergy (Mild, Verified 06/15/24 11:29) HAYFEVER Environmental Allergy (Mild, Uncoded 06/15/24 11:29) HAYFEVER yellow jackets Allergy (Uncoded 06/15/24 11:29) Anaphylaxis Medication List - Last Reconciled 06/15/24 by Alvin Elliott PA-C acetaminophen (Pain Relief (acetaminophen)) 500 mg PO BID 90 days acetaminophen-codeine 300-30 mg 1 tab PO Q6H PRN [adult pullups As directed] albuterol sulfate 90 mcg/actuation (Ventolin HFA) 2 puffs inhalation QID PRN 30 days alendronate (Fosamax) 70 mg PO QWEEK 12 weeks amitriptyline 50 mg PO BEDTIME 90 days apixaban (Eliquis) 5 mg PO BID 90 days azelastine-fluticasone 137-50 mcg/spray (Dymista) 1 spray intranasal BID 30 days back brace As directed baclofen 20 mg PO BEDTIME 90 days [bed pads As directed] cane As directed cefuroxime axetil 500 mg PO Q12H cholecalciferol (vitamin D3) 50 mcg PO DAILY 90 days clonazepam 0.5 mg PO BID compr.stocking,knee,long,large As directed diaper,brief,adult,disposable As directed diphenhydramine HCl (Banophen) 25 mg PO Q8H 90 days [disposable face masks As directed] disposable gloves As directed epinephrine (EpiPen 2-Kamaljit) 0.3 mg (0.3 mL) IM ONCE PRN 30 days fluticasone furoate-vilanterol 200-25 mcg/dose (Breo Ellipta) 1 inh inhalation DAILY 30 days obcrfdydvtq-hdniarmdc-iqzyxlek 200-62.5-25 mcg (Trelegy Ellipta) 1 inh inhalation DAILY 30 days folic acid 1 mg PO DAILY 90 days furosemide 20 mg PO DAILY 90 days gabapentin 400 mg PO BEDTIME gabapentin 200 mg (2 x 100 mg) PO BEDTIME 90 days humidifiers (Cool Mist Humidifier) As directed incontinence pad, liner, disp As directed leg brace (Knee Support Brace) Need 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 mechanical engineer left knee brace with medial support lidocaine 5% 1 patch topical DAILY 30 days loperamide 2 mg PO Q8H PRN 90 days magnesium oxide 400 mg PO BEDTIME 90 days miscellaneous medical supply 1 ea miscellaneous DAILY 99 days montelukast 10 mg PO DAILY 90 days omeprazole 20 mg PO DAILY 90 days primidone 100 mg (2 x 50 mg) PO BID 90 days pseudoephedrine HCl ER 120 mg PO Q12H 30 days [round raised toilet seat As directed] [soft neck brace As directed] topiramate (Topamax) 200 mg PO BID 90 days triamcinolone acetonide 0.5% 1 appl topical DAILY 90 days umeclidinium 62.5 mcg/actuation (Incruse Ellipta) 1 inh inhalation DAILY 30 days vitamin B complex 1 tab PO DAILY 90 days walker (Ultra-Light Rollator misc) As directed zolpidem 10 mg PO BEDTIME HPI HPI New prob- LT knee sprain: Details: Ashly is a 63-year-old female who presents today for an evaluation of left knee sprain. Patient reports right knee pain comes with raining. Now if having discomfort in her left knee. constant pain unable to bear weight. Hx of falls. uses walker for ambulation. SHe has prescribed mediation that does not give her much relief. States unable to take Tylenol due to kidney condition. She notices that rain causes pain in her right knee. She is currently exper iencing constant pain in her left knee. She reports that she is unable to bear weight. She has a history of falls. She ambulates with the use of walker. She claims that her prescriptions medications did not provider her much relief. She denies taking Tylenol secondary to kidney disease. She states that she has been seeing her PCP for the edema in her legs. She has a smoking habit, but she is unwilling to quit smoking. [facility] Medical History Allergies Chronic allergic rhinitis Asthma-COPD overlap syndrome COPD exacerbation COVID-19 History of abnormal cervical Pap smear Spinal stenosis, cervical region Peripheral polyneuropathy Spondylosis of cervical spine Spondylosis of lumbar spine Cocaine abuse Alcohol abuse Hepatitis HIV (human immunodeficiency virus infection) Heart murmur History of cocaine abuse History of heroin abuse Hydradenitis Former cigarette smoker Recovering alcoholic GERD (gastroesophageal reflux disease) Lumbago with sciatica, left side Arthritis Back pain On anticoagulant therapy DVT (deep venous thrombosis) History of celiac disease Anxiety Panic attacks Depression PTSD (post-traumatic stress disorder) Parkinson disease History of frequent headaches Seizure Asthma Surgical History H/O excision of ganglion cyst Hx of esophagogastroduodenoscopy History of carpal tunnel surgery of left wrist Hx of nasal septoplasty History of hemorrhoidectomy Hx of colonoscopy Family History Mother No problems noted. Social History Housing: Apartment Are you a primary urgent care physician to a significant other at home: No Do you presently have visiting nurse or other home services: Yes Alcohol intake: former Year quit: 2003 Comment: was seen at [facility]-called for note Patient Tobacco Use Status: Current everyday Tobacco user Tobacco use type: Cigarette Cigarette Packs Per Day: 0.5 Cigarettes Per Day: 7 Years Smoked: 45 e-Cigarette/Vaping Use: Former Use Second Hand Smoke Exposure: No service: No Current occupational status: disabled Cognitive needs: Yes (back brace) Hearing needs: No Vision needs: Yes Review of Systems Const All systems reviewed & are unremarkable except as noted in HPI and below Physical Exam Const General: cooperative, healthy appearing, comfortable and no acute distress Orientation/consciousness: patient oriented x3 Neck Neck: Yes normal visual inspection and Yes no JVD Chest Chest palpation & inspection: normal inspection of the chest Resp Effort & Inspection: normal respiratory effort Auscultation: clear to auscultation bilaterally, crackles (no), rales (no), rhonchi (no) and wheezes (no) Cardio Jugular venous distension: no JVD Rate: regular rate Rhythm: regular rhythm Heart sounds: S1 normal heart sound present, S2 normal heart sound present, Murmur heart sound present (no) and Rub heart sound present (no) Neuro General: patient oriented x3 Extrem Other: Left knee: Skin intact, no erythema or joint effusion. Tenderness along the medial joint line. Full ROM with crepitus. Positive Meagan?s. No ligamentous laxity. NVI. General: Yes normal to inspection, Yes no pedal edema and Yes no calf tenderness Psych Appearance: grossly normal Mental Status: mental status grossly normal Speech and movement: Normal speech and movement present Results Reviewed Results Reviewed: xrays of the left knee obatined in the ED in negative for acute or chronic abnormalities. Assessment & Plan Assessment & Plan (1) Internal derangement of left knee: Code(s): M23.92 - Unspecified internal derangement of left knee Category: Medical Plan MRI of the left knee has been ordered to further evaluate the integrity of her meniscus and surrounding structures once the scans complete, we will see her back to discuss the results. Counseling on smoking cessation was done. Orders: Orders MR knee LT wo con Today M17.12 - Unilateral primary osteoarthritis, left knee Patient Instructions: Scribed for Alvin Elliott PA-C, by Stanley Champion medical claims representative, on 06/15/2024 at 11:45 PM EST. Alvin Ochoa PA-C, have personally reviewed and agree with the information entered by the scribe. Coding Level of Care Code Est Pt Level 3 (45642) Diagnoses Internal derangement of left knee M23.92
== END 2024-06-15 11:50 | disposition home or self-care (01) ==
PROVIDERS: PCP Physician Assistant; Visit Provider Physician Assistant
DX: M23.92 Unspecified internal derangement of left knee (principal)
CPT/HCPCS: 99213

== ENCOUNTER → 2024-06-15 11:24 | Outpatient (BNVA) | payer OTHER, SELFPAY | PROVIDERS: PCP Physician Assistant; Visit Provider Physician Assistant | DX: M23.92 Unspecified internal derangement of left knee (principal) | CPT/HCPCS: 99212 ==

== ENCOUNTER 2024-06-19 08:48 | Outpatient (REF) | payer OTHER, SELFPAY ==
[2024-06-19 10:05] LABS: Syphilis Screen Nonreactive (Nonreactive)
[2024-06-19 10:24] LABS: HBc Num1 5.13 S/CO (0.00-0.79); HIV AB/AG Nonreactive (Nonreactive); HIV Num 1 0.06 S/CO (0.00-0.99); ~HepC Num1 0.09 S/CO (0.00-0.79); ~Hepatitis C Antibody Nonreactive (Nonreactive)
[2024-06-19 14:18] LABS: HBc Num2 5.01 S/CO; HBc Num3 5.11 S/CO; Hepatitis B Core Antibody Reactive (Nonreactive)
[2024-06-20 19:44] LABS: Hepatitis B Core Antibody IgM NON-REACTIVE (NON-REACTIVE)
== END 2024-06-19 08:49 | disposition home or self-care (01) ==
LOC: HO.LAB 08:48
PROVIDERS: PCP Physician Assistant; Visit Provider Advanced Practice Midwife
DX: Z20.2 Contact with and (suspected) exposure to infections with a predominantly sexual mode of transmission (principal)
CPT/HCPCS: 36415; 86704; 86705; 86780; 86803; 87389

== ENCOUNTER 2024-06-26 12:56 | Outpatient (REF) | payer OTHER, SELFPAY ==
--- NOTE | ~2024-06-26 | MR_ITS ---
EXAMINATION: MR KNEE WITHOUT CONTRAST, LEFT CLINICAL INFORMATION: Left knee pain and swelling. Slip and fall 1-2 months ago. Sprain. COMPARISON: Most recent left knee radiographs dated 04/11/2024. TECHNIQUE: MRI of the knee without contrast was performed using routine sequences on a high-field scanner. FINDINGS: MENISCI: Medial Meniscus: Intact. Lateral Meniscus: Intact. LIGAMENTS: Cruciate: Intact. Collateral: Thickening of the proximal medial collateral ligament with attenuation at the femoral insertion. Prominent adjacent soft tissue edema. Findings are consistent with an acute grade 2 sprain/partial tear. No full-thickness defect or ligament retraction. Intact fibular collateral ligament. EXTENSOR MECHANISM: Intact quadriceps and patellar tendons. Normal patellofemoral alignment. ARTICULAR CARTILAGE/BONE: Patellofemoral Compartment: Intact articular cartilage. Medial Compartment: Posterior non-weightbearing medial femoral condyle articular cartilage fissuring with minimal subchondral cystic change. Lateral Compartment: Intact articular cartilage. JOINT FLUID AND BURSAE: Trace joint effusion and trace Gibbs's cyst. Mild circumferential subcutaneous edema. MR/MR knee LT wo con IMPRESSION: 1. Acute grade 2 sprain/partial tear of the medial collateral ligament with prominent adjacent soft tissue edema. 2. No meniscal tear. 3. Minimal medial compartment arthrosis. Trace joint effusion and trace Gibbs's cyst. Mild circumferential subcutaneous edema.
== END 2024-06-26 12:57 | disposition home or self-care (01) ==
LOC: HO.MRI 12:56
PROVIDERS: PCP Physician Assistant; Visit Provider Physician Assistant
DX: S83.8X2D Sprain of other specified parts of left knee, subsequent encounter (principal)
CPT/HCPCS: 73721

== ENCOUNTER 2024-07-02 10:34 | Outpatient (AMB) | payer OTHER, SELFPAY ==
[2024-07-02 10:40] VITALS: BP 126/74; PULSE 87; O2SAT 98; BMI 36.9
--- NOTE | 2024-07-02 10:40 | MHC.PC.OV ---
Vital Signs 07/02/24 10:40 Height 5 ft 2 in Weight 201 lb 8.04 oz BMI 36.9 BP 126/74 Blood Pressure Location Lt brachial Position Sitting Pulse 87 Pulse Source Pulse Oximeter Pulse Oximetry (%) 98 Oxygen Delivery Method Room Air Intake Visit Reasons: Can not hold urine Intake Note: pt c/o of urinary incontinence [id number] with no relief Herd Tester Required: No Allergies cat dander [CATS] Allergy (Mild, Verified 07/02/24 10:44) HAYFEVER Chocolate Allergy (Mild, Verified 07/02/24 10:44) HEADACHES dog dander [DOGS] Allergy (Mild, Verified 07/02/24 10:44) HAYFEVER Environmental Allergy (Mild, Uncoded 07/02/24 10:44) HAYFEVER yellow jackets Allergy (Uncoded 07/02/24 10:44) Anaphylaxis Tobacco use date assessed: 02/05/24 Dental Screening Dental Screen Date: 02/05/24 HPI Can not hold urine HPI Details 63-year-old female with past medical history of seizure disorder, DVT, Parkinson's disease, hypertension, major depressive disorder, generalized anxiety disorder, osteoporosis, COPD last seen by PA 05/07/2024 coming in for acute problem.? In review of the notes, patient was seen by Orthopedics May 2024 for left knee pain and MRI was ordered.? Patient was also seen by Gynecology May 2024 for annual exam. Today she tells us she has been having urinary leakage for the past several months. She does mentioned she drinks around 12 bottles of water a day which may be contributing to the incontinence. Most recently she was sitting down when she felt the sudden urge to use the restroom and could not make it and did have overflow into her pants. She does mentioned when she uses the bathroom she often finds wet spots in her underwear. She also wears depends at night because she has frequent accidents. Denies any numbness or tingling in the thigh area. She also recently had a fall and is having continued back pain which is chronic and is would like to be evaluated by a business services specialist sales. [facility] Medical History Allergies Chronic allergic rhinitis Asthma-COPD overlap syndrome COPD exacerbation COVID-19 History of abnormal cervical Pap smear Spinal stenosis, cervical region Peripheral polyneuropathy Spondylosis of cervical spine Spondylosis of lumbar spine Cocaine abuse Alcohol abuse Hepatitis HIV (human immunodeficiency virus infection) Heart murmur History of cocaine abuse History of heroin abuse Hydradenitis Former cigarette smoker Recovering alcoholic GERD (gastroesophageal reflux disease) Lumbago with sciatica, left side Arthritis Back pain On anticoagulant therapy DVT (deep venous thrombosis) History of celiac disease Anxiety Panic attacks Depression PTSD (post-traumatic stress disorder) Parkinson disease History of frequent headaches Seizure Asthma Surgical History H/O excision of ganglion cyst Hx of esophagogastroduodenoscopy History of carpal tunnel surgery of left wrist Hx of nasal septoplasty History of hemorrhoidectomy Hx of colonoscopy Family History Mother No problems noted. Social History Housing: Apartment Are you a primary health care marketing specialist to a significant other at home: No Do you presently have visiting nurse or other home services: Yes Alcohol intake: former Year quit: 2003 Comment: was seen at [facility]-called for note Patient Tobacco Use Status: Current everyday Tobacco user Tobacco use type: Cigarette Cigarette Packs Per Day: 0.5 Cigarettes Per Day: 7 Years Smoked: 45 e-Cigarette/Vaping Use: Former Use Second Hand Smoke Exposure: No service: No Current occupational status: disabled Cognitive needs: Yes (back brace) Hearing needs: No Vision needs: Yes Questionnaire Thrive Questionnaire Date Thrive assessed: 02/05/24 AUDIT C Alcohol Use Questionnaire (AUDIT-C) 1. How often do you have a drink containing alcohol?: Never 3. How often do you have six or more drinks on one occasion?: Never Total Score: 0 LUISA-7 AMB Questionnaire LUISA-7 Date LUISA - 7 assessed: 02/05/24 Source: Developed by Drs. Boris Garcia, Qian Bullard, Hector Herzog and colleagues, with an educational miguel a from [email or web address]. Review of Systems Const Denies body aches, Denies chills, Denies fever(s), Denies headache(s) and Denies poor appetite Eyes Reports no additional complaints ENT Denies dysphagia, Denies dizziness, Denies headache(s) and Denies odynophagia Card Denies chest pain, Denies syncope, Denies edema, Denies irregular heart rhythm, Denies lightheadedness and Denies dyspnea Resp Denies cough and Denies dyspnea GI Denies abdominal pain, Denies constipation, Denies dysphagia, Denies diarrhea, Denies nausea, Denies odynophagia and Denies vomiting Denies difficulty voiding, Denies dysuria, Denies pelvic pain and Denies urinary hesitancy Musc Reports no additional complaints and Denies abnormal gait Skin/Breast Reports system reviewed and no additional complaints, except as documented Neuro Denies abnormal gait, Denies dizziness, Denies syncope and Denies headache(s) Psych Reports no additional complaints Physical exam (Primary Care) Vital Signs: Last Vital Signs Pulse 87 07/02/24 10:40 BP 126/74 07/02/24 10:40 Pulse Ox 98 07/02/24 10:40 Oxygen Delivery Method Room Air 07/02/24 10:40 BMI result Body Mass Index 36.9 Tobacco/Smoking Status: Tobacco use Status Tobacco use date assessed 02/05/24 07/02/24 10:41 Patient Tobacco Use Status Current everyday Tobacco 07/02/24 10:41 Tobacco use type Cigarette 07/02/24 10:41 e-Cigarette/Vaping Use Former Use 07/02/24 10:41 Thrive Assessment: Date of Thrive Assessment Date Thrive assessed 02/05/24 07/02/24 10:41 Const General: cooperative, healthy appearing, comfortable and no acute distress Orientation/consciousness: patient oriented x3 HENMT Head: Yes normocephalic Ears: hearing grossly normal bilaterally General nose exam: Normal external nose present Eyes General: appearance normal, both eyes and all related structures Conjunctivae: conjunctivae normal Neck Neck: Yes full ROM and Yes no lymphadenopathy Resp Effort & Inspection: normal respiratory effort Auscultation: clear to auscultation bilaterally, no crackles, no rales, no rhonchi and no wheezes Cardio Rate: regular rate Rhythm: regular rhythm GI Palpation (GI): Soft to palpation, not firm, nontender, no guarding and not rigid Skin General skin exam: no rashes or lesions noted Neuro General: patient oriented x3 Gait exam (Neuro): Normal gait present Extrem General: Yes normal to inspection, Yes full ROM and No edema Psych Affect: normal affect Attitude: cooperative Insight: Good insight present (Psych) Judgement: Good judgement present (Psych) Results AMB Urinalysis, Automated UA Leukoctes 15 Walt/uL Last Edit by Alidasusie Cruz [facility] on 07/02/24 11:09 UA Nitrite Negative Last Edit by Alidasusie Cruz [facility] on 07/02/24 11:09 UA Urobilinogen 0.2 mg/dL Last Edit by Alida Cruz [facility] on 07/02/24 11:09 UA Protein 0 mg/dL Last Edit by Alida Cruz [facility] on 07/02/24 11:09 UA pH 5.5 Last Edit by Alida Cruz [facility] on 07/02/24 11:09 UA Blood 0 Domingo/uL Last Edit by Alidasusie Cruz [facility] on 07/02/24 11:09 UA Specific [place] 1.010 Last Edit by Alida Cruz [facility] on 07/02/24 11:09 UA Ketone Positive Last Edit by Alida Cruz [facility] on 07/02/24 11:09 UA Bilirubin 0 mg/dL Last Edit by Alida Cruz [facility] on 07/02/24 11:09 UA Glucose 0 mg/dL Last Edit by Alida Cruz [facility] on 07/02/24 11:09 Results Reviewed Results Reviewed: Laboratory Last Values Urine pH (Auto) 5.5 07/02/24 10:55 Specific [place] (Auto) 1.010 07/02/24 10:55 Urine Protein (Auto) 0 mg/dL 07/02/24 10:55 Glucose (UA)(Auto) 0 mg/dL 07/02/24 10:55 Urine Ketones (Auto) Positive 07/02/24 10:55 Urine Blood (Auto) 0 Domingo/uL 07/02/24 10:55 Urine Nitrite (Auto) Negative 07/02/24 10:55 Urine Bilirubin (Auto) 0 mg/dL 07/02/24 10:55 Urine Urobilinogen (Auto) 0.2 mg/dL 07/02/24 10:55 Leukocyte Esterase (Auto) 15 Walt/uL 07/02/24 10:55 Assessment and Plan Assessment & Plan (1) Urinary incontinence: Code(s): R32 - Unspecified urinary incontinence Plan: Patient has been having worsening urinary incontinence and dribbling after the use of the bathroom. Advised patient to decrease the amount of water she drinks around bedtime and also recommended timed voiding. We can trial oxybutynin once daily to help with symptoms. We will follow up at next visit for re-evaluation. Urinalysis was positive for small amount of leukocytes we will order for culture for further evaluation. (2) Cervical spine pain: Code(s): M54.2 - Cervicalgia Plan: Patient continues to have back pain which has recently been exacerbated by an injury. She is following with [facility] for her knee pain. Is previously a patient of [facility] and would like to go back for re-evaluation and possible back injections. Referral sent today. Plan This note was constructed using voice recognition software. While every effort has been made to ensure accuracy and management trainee program stores, still areas may have been included sometimes these areas may affect the content or meeting of the given symptoms. Total time spent caring for the patient today was 30 minutes. This includes time spent before the visit reviewing the chart, time spent during the visit, and time spent after the visit and documentation. Orders: Orders AMB Urinalysis Automated Today R32 - Unspecified urinary incontinence Urine Culture Today R32 - Unspecified urinary incontinence Referrals Orthopedics Referral M54.2 - Cervicalgia, M79.18 - Myalgia, other site Medications: New oxybutynin chloride ER 5 mg PO DAILY 30 tabs 2RF Coding Level of Care Code Est Pt Level 4 (26808) Diagnoses Urinary incontinence R32 Cervical spine pain M54.2
== END 2024-07-02 11:48 | disposition home or self-care (01) ==
PROVIDERS: PCP Physician Assistant
DX: R32 Unspecified urinary incontinence (principal); M54.2 Cervicalgia
CPT/HCPCS: 81003; 99214

== ENCOUNTER 2024-07-02 16:36 | Outpatient (REF) | payer OTHER, SELFPAY | END 2024-07-02 16:37 | disposition home or self-care (01) | LOC: HO.LNP 16:36 | DX: R32 Unspecified urinary incontinence (principal) | CPT/HCPCS: 87086 ==

== ENCOUNTER 2024-07-07 08:31 | Outpatient (AMB) | payer OTHER, SELFPAY ==
[2024-07-07 08:37] VITALS: PULSE 82; O2SAT 97; BMI 36.8
--- NOTE | 2024-07-07 08:37 | MHC.OFFVIS ---
Vital Signs 07/07/24 08:37 Height 5 ft 2 in Weight 201 lb BMI 36.8 Pulse 82 Pulse Source Pulse Oximeter Pulse Oximetry (%) 97 Oxygen Delivery Method Room Air Intake Visit Reasons: COPD Allergies cat dander [CATS] Allergy (Mild, Verified 07/07/24 08:38) HAYFEVER Chocolate Allergy (Mild, Verified 07/07/24 08:38) HEADACHES dog dander [DOGS] Allergy (Mild, Verified 07/07/24 08:38) HAYFEVER Environmental Allergy (Mild, Uncoded 07/07/24 08:38) HAYFEVER yellow jackets Allergy (Uncoded 07/07/24 08:38) Anaphylaxis HPI Comments Details: The patient is a 63 year woman who has an active smoker and also history of substance abuse presenting with a history of asthma worsening symptoms. The patient states that she does have significant allergies and she has had allergy shots for many years. But then her doctor stopped covering her insurance and therefore she was not able to get allergy shots. She is felt that her respiratory symptoms have gotten worse. She has had more chest tightness and wheezing. She does have an Advair HFA inhaler although she thought that was inhaler for rescue. And also still not feeling well overall. The patient unfortunately continues to smoke cigarettes. She has been able to cut down significantly down to 1 pack lasting 3-4 days. She has been smoking for about 40 years and the patient does qualify for the lung cancer screening program. We did talk about it but at this point the patient is calorie reluctant and therefore will further discuss it during next visit. The patient also significant nasal congestion. She does use Sudafed [id number]. In addition to that has been using nasal sprays. The patient has not been using Afrin per the patient's report. Indeed the patient likely has significant allergies and would potentially benefit from biologic therapy in the near future. For now though will try to optimize respiratory therapy and also her nasal therapy. The patient will have a chest x-ray and PFTs and be evaluated after that. I which point will talk about the lung cancer screening program and we will consider biologic therapy if she has not made it to an freight brakeman. 07/07/2024 the patient is here for pulmonary follow-up visit. Overall the patient is doing okay from a respiratory status. She did respond well to the Trelegy inhaler. She did have an injury where she fell and she her neck. Now she is dealing with those issues. Unfortunately she has not been able to quit smoking. We did talk about the importance of doing so since her respiratory symptoms are significant. She is also dealing with nasal congestion and nasal polyps. She is using nasal sprays. Initially we have recommended Sudafed but now she is having issues with blood pressure sure she can hold off on Sudafed at this time. The patient was supposed have a chest x-ray and PFTs. Although we had to reschedule. She is going to have a chest x-ray today and shot PFTs prior to next visit. We also had talked about the lung cancer screening program during the last visit. Will go ahead and discuss that further during her follow-up visit. [facility] Medical History Allergies Chronic allergic rhinitis Asthma-COPD overlap syndrome COPD exacerbation COVID-19 History of abnormal cervical Pap smear Spinal stenosis, cervical region Peripheral polyneuropathy Spondylosis of cervical spine Spondylosis of lumbar spine Cocaine abuse Alcohol abuse Hepatitis HIV (human immunodeficiency virus infection) Heart murmur History of cocaine abuse History of heroin abuse Hydradenitis Former cigarette smoker Recovering alcoholic GERD (gastroesophageal reflux disease) Lumbago with sciatica, left side Arthritis Back pain On anticoagulant therapy DVT (deep venous thrombosis) History of celiac disease Anxiety Panic attacks Depression PTSD (post-traumatic stress disorder) Parkinson disease History of frequent headaches Seizure Asthma Surgical History H/O excision of ganglion cyst Hx of esophagogastroduodenoscopy History of carpal tunnel surgery of left wrist Hx of nasal septoplasty History of hemorrhoidectomy Hx of colonoscopy Family History Mother No problems noted. Social History Housing: Apartment Are you a primary direct support professional caregiver to a significant other at home: No Do you presently have visiting nurse or other home services: Yes Alcohol intake: former Year quit: 2003 Comment: was seen at [facility]-called for note Patient Tobacco Use Status: Current everyday Tobacco user Tobacco use type: Cigarette Cigarette Packs Per Day: 0.5 Cigarettes Per Day: 7 Years Smoked: 45 e-Cigarette/Vaping Use: Former Use Second Hand Smoke Exposure: No service: No Current occupational status: disabled Cognitive needs: Yes (back brace) Hearing needs: No Vision needs: Yes Review of Systems Const Denies fever(s) ENT Reports nasal congestion and Reports nasal discharge Card Denies chest pain Resp Reports cough and Reports wheezing GI Reports no additional complaints Musc Reports no additional complaints Skin/Breast Denies rash Neuro Reports no additional complaints Carlos/Lymph Denies lymphadenopathy Aller/Immun Reports wheezing Physical Exam Vital Signs: Last Vital Signs Pulse 82 07/07/24 08:37 Pulse Ox 97 07/07/24 08:37 Oxygen Delivery Method Room Air 07/07/24 08:37 BMI result Body Mass Index 36.8 Const General: comfortable HEENT Head: Yes normocephalic General nose exam: Abnormal mucous membranes and turbinates present erythematous Neck Neck: Yes supple Chest Chest palpation & inspection: normal inspection of the chest Resp Effort & Inspection: normal respiratory effort and prolonged expiratory phase Auscultation: wheezes Cardio Heart sounds: S1 normal heart sound present and S2 normal heart sound present GI Palpation (GI): Soft to palpation Skin General skin exam: no rashes or lesions noted Extrem General: Yes no clubbing, cyanosis or edema Assessment & Plan Assessment & Plan (1) Asthma-COPD overlap syndrome: Code(s): J44.89 - Other specified chronic obstructive pulmonary disease Category: Medical (2) Chronic allergic rhinitis: Code(s): J30.9 - Allergic rhinitis, unspecified Category: Medical (3) Allergies: Code(s): T78.40XA - Allergy, unspecified, initial encounter Category: Medical Qualifiers: Encounter type: initial encounter Qualified Code(s): T78.40XA - Allergy, unspecified, initial encounter Plan continue Trelegy EDITA as needed continue Dymista Smoking cessation, will start cutting down: will be starting chantix Consider LDCT CXR PFTs F/U 4-6 months Coding Level of Care Code Est Pt Level 4 (76366) Diagnoses Asthma-COPD overlap syndrome J44.89 Chronic allergic rhinitis J30.9 Allergy, initial encounter T78.40XA Encounter type: initial encounter Time Spent (min) 16
== END 2024-07-07 08:52 | disposition home or self-care (01) ==
PROVIDERS: PCP Physician Assistant; Visit Provider Hospitalist
DX: J44.89 Other specified chronic obstructive pulmonary disease (principal); J30.9 Allergic rhinitis, unspecified; T78.40XA Allergy, unspecified, initial encounter
CPT/HCPCS: 99214

== ENCOUNTER → 2024-07-07 08:31 | Outpatient (BNVA) | payer OTHER, SELFPAY | PROVIDERS: PCP Physician Assistant; Visit Provider Hospitalist | DX: J44.89 Other specified chronic obstructive pulmonary disease (principal); J30.9 Allergic rhinitis, unspecified; T78.40XA Allergy, unspecified, initial encounter | CPT/HCPCS: 99212 ==

== ENCOUNTER 2024-07-23 10:12 | Outpatient (AMB) | payer OTHER, SELFPAY ==
--- NOTE | 2024-07-23 10:12 | A.OFFVIS_ITS ---
Vital Signs 07/23/24 10:16 Height 5 ft 2 in Weight 201 lb BMI 36.8 Intake Visit Reasons: Tele-Left knee MRI review - [phone] Intake Note: Ashly is a 63 year old female who is scheduled for a telephone visit to review MRI review of left knee. Allergies cat dander [CATS] Allergy (Mild, Verified 07/23/24 10:19) HAYFEVER Chocolate Allergy (Mild, Verified 07/23/24 10:19) HEADACHES dog dander [DOGS] Allergy (Mild, Verified 07/23/24 10:19) HAYFEVER Environmental Allergy (Mild, Uncoded 07/23/24 10:19) HAYFEVER yellow jackets Allergy (Uncoded 07/23/24 10:19) Anaphylaxis HPI HPI Tele-Left knee MRI review - [phone]: Details: 63 yo female presents for telehealth visit MRI review left knee. She continues to have some discomfort in the knee with prolonged walking and bending. [facility] Medical History Allergies Chronic allergic rhinitis Asthma-COPD overlap syndrome COPD exacerbation COVID-19 History of abnormal cervical Pap smear Spinal stenosis, cervical region Peripheral polyneuropathy Spondylosis of cervical spine Spondylosis of lumbar spine Cocaine abuse Alcohol abuse Hepatitis HIV (human immunodeficiency virus infection) Heart murmur History of cocaine abuse History of heroin abuse Hydradenitis Former cigarette smoker Recovering alcoholic GERD (gastroesophageal reflux disease) Lumbago with sciatica, left side Arthritis Back pain On anticoagulant therapy DVT (deep venous thrombosis) History of celiac disease Anxiety Panic attacks Depression PTSD (post-traumatic stress disorder) Parkinson disease History of frequent headaches Seizure Asthma Surgical History H/O excision of ganglion cyst Hx of esophagogastroduodenoscopy History of carpal tunnel surgery of left wrist Hx of nasal septoplasty History of hemorrhoidectomy Hx of colonoscopy Family History Mother No problems noted. Social History Housing: Apartment Are you a primary caretaker grounds to a significant other at home: No Do you presently have visiting nurse or other home services: Yes Alcohol intake: former Year quit: 2003 Comment: was seen at [facility]-called for note Patient Tobacco Use Status: Current everyday Tobacco user Tobacco use type: Cigarette Cigarette Packs Per Day: 0.5 Cigarettes Per Day: 7 Years Smoked: 45 e-Cigarette/Vaping Use: Former Use Second Hand Smoke Exposure: No service: No Current occupational status: disabled Cognitive needs: Yes (back brace) Hearing needs: No Vision needs: Yes Review of Systems Const All systems reviewed & are unremarkable except as noted in HPI and below Physical Exam Vital Signs: BMI result Body Mass Index 36.8 Resp Effort & Inspection: normal respiratory effort and able to speak in complete sentences Telehealth Telehealth Patient Identification confirmed using: Name, : Yes Telehealth method: voice only Patient verbally consented to treatment: Yes Patient verbally consented to billing insurance company: Yes Minutes spent on Phone/Video with Pt.: 10 Results Reviewed Results Reviewed: MR knee LT wo con IMPRESSION: 1. Acute grade 2 sprain/partial tear of the medial collateral ligament with prominent adjacent soft tissue edema. 2. No meniscal tear. 3. Minimal medial compartment arthrosis. Trace joint effusion and trace Gibbs's cyst. Mild circumferential subcutaneous edema. Assessment & Plan Assessment & Plan (1) MCL sprain of left knee: Code(s): S83.412A - Sprain of medial collateral ligament of left knee, initial encounter Category: Medical Qualifiers: Encounter type: initial encounter Qualified Code(s): S83.412A - Sprain of medial collateral ligament of left knee, initial encounter Plan: We reviewed MRI findings in detail. I explained to her the expected recovery for MCL sprain could be anywhere from 6-12 weeks. She should continued with modified activities, ie: avoid high impact activity, cutting, twisting, pivoting motions. Limit stair climbing. She has a knee brace she will continue to use. I recommend a course of PT to work on strengthening and stability along with ROM exercises. If symptoms persist or she has concerns she will contact our office, otherwise, f/u prn. Orders: Orders PT Evaluation and Treatment 07/23/24 S83.412A - Sprain of medial collateral ligament of left knee, initial encounter Coding Level of Care Code Tele Est Pt Level 3 (32497) Complex EM visit Add On G2211 Diagnoses Sprain of medial collateral ligament of left knee, initial encounter S83.412A Encounter type: initial encounter
[2024-07-23 10:16] VITALS: BMI 36.8
== END 2024-07-23 10:22 | disposition home or self-care (01) ==
LOC: HO.HOS 10:12
PROVIDERS: PCP Physician Assistant; Visit Provider Physician Assistant
DX: S83.412A Sprain of medial collateral ligament of left knee, initial encounter (principal)
CPT/HCPCS: 99213; G2211

== ENCOUNTER → 2024-07-23 10:12 | Outpatient (BNVA) | payer OTHER, SELFPAY | PROVIDERS: PCP Physician Assistant; Visit Provider Physician Assistant ==

== ENCOUNTER 2024-07-30 10:23 | Outpatient (REF) | payer OTHER, SELFPAY ==
--- NOTE | ~2024-07-30 | XR_ITS ---
EXAMINATION: XR CHEST CLINICAL INFORMATION: Bronchitis COMPARISON: Chest x-ray on 10/09/2023 TECHNIQUE: 2 views of the chest were obtained. FINDINGS: The cardiac silhouette is normal. There is mild diffuse bronchial wall thickening. There are no areas of consolidation. There are no pleural effusions or pneumothoraces. The bones and soft tissues are unremarkable for the patient's age. XR/XR chest 2V IMPRESSION: Bronchial wall thickening may be infectious and/or inflammatory in etiology. Electronically signed by: Whitley Ramires MD 08/12/2024 09:57 AM EDT
== END 2024-07-30 10:24 | disposition home or self-care (01) ==
LOC: HO.XRAY 10:23
PROVIDERS: PCP Physician Assistant; Visit Provider Physician Assistant
DX: J41.0 Simple chronic bronchitis (principal); Z71.2 Person consulting for explanation of examination or test findings
CPT/HCPCS: 71046; 99212

== ENCOUNTER 2024-07-30 12:45 | Outpatient (AMB) | payer OTHER, SELFPAY ==
--- NOTE | 2024-07-30 13:00 | MHC.OFFVIS ---
Intake Visit Reasons: follow up 45 mins Intake Note: follow up HIV labs, occasional irritation from depends SENIOR BOILER OPERATOR Rhonda Administration Vice President: Administration Vice President Present (Sommer) Accompanied by: Employee Allergies cat dander [CATS] Allergy (Mild, Verified 07/30/24 13:02) HAYFEVER Chocolate Allergy (Mild, Verified 07/30/24 13:02) HEADACHES dog dander [DOGS] Allergy (Mild, Verified 07/30/24 13:02) HAYFEVER Environmental Allergy (Mild, Uncoded 07/23/24 10:19) HAYFEVER yellow jackets Allergy (Uncoded 07/23/24 10:19) Anaphylaxis Is last menstrual period known: Yes HPI Comments Details: Patient is here today for test results. She also wants to discuss her condition of chronic skin boils in the vulvar region. She uses an overnight depends and has her small dog sleeping in the same and wonders if that is causing addition irritation. She is accompanied by her SENIOR BOILER OPERATOR Rhonda via wheelchair. She currently does not report any vulvar lesions today. [facility] Medical History Allergies Chronic allergic rhinitis Asthma-COPD overlap syndrome COPD exacerbation COVID-19 History of abnormal cervical Pap smear Spinal stenosis, cervical region Peripheral polyneuropathy Spondylosis of cervical spine Spondylosis of lumbar spine Cocaine abuse Alcohol abuse Hepatitis HIV (human immunodeficiency virus infection) Heart murmur History of cocaine abuse History of heroin abuse Hydradenitis Former cigarette smoker Recovering alcoholic GERD (gastroesophageal reflux disease) Lumbago with sciatica, left side Arthritis Back pain On anticoagulant therapy DVT (deep venous thrombosis) History of celiac disease Anxiety Panic attacks Depression PTSD (post-traumatic stress disorder) Parkinson disease History of frequent headaches Seizure Asthma Surgical History H/O excision of ganglion cyst Hx of esophagogastroduodenoscopy History of carpal tunnel surgery of left wrist Hx of nasal septoplasty History of hemorrhoidectomy Hx of colonoscopy Family History Mother No problems noted. Social History Housing: Apartment Are you a primary patient care secretary to a significant other at home: No Do you presently have visiting nurse or other home services: Yes Alcohol intake: former Year quit: 2003 Comment: was seen at [facility]-called for note Patient Tobacco Use Status: Current everyday Tobacco user Tobacco use type: Cigarette Cigarette Packs Per Day: 0.5 Cigarettes Per Day: 7 Years Smoked: 45 e-Cigarette/Vaping Use: Former Use Second Hand Smoke Exposure: No service: No Current occupational status: disabled Cognitive needs: Yes (back brace) Hearing needs: No Vision needs: Yes Review of Systems Const All systems reviewed & are unremarkable except as noted in HPI and below Endo Reports no additional complaints Physical Exam Const General: cooperative, healthy appearing and no acute distress Psych Appearance: well kempt Attitude: cooperative Thought process: Normal thought process present Assessment & Plan Assessment & Plan (1) Encounter to discuss test results: Code(s): Z71.2 - Person consulting for explanation of examination or test findings Plan Discussed lab results-all negative. Reviewed concerns for vulvar skin changes with chronic boils and causative factors, advised to attempt to not wear depends overnight and sleep on a peripad that is covered with a light weight towel and consider removing the animal from the area to another position in bed so that air flow can be reached to the region. If any other concerns or skin issues to return to the office sooner than her scheduled appointment in 06/06/2025. All of her questions and concerns were addressed to the best of my ability and shared decision making. She is agreeable to the plan of care. This note is constructed using voice recognition software. While every effort has been made to ensure accuracy, safety lead errors may have been included. Medications: Discontinued azelastine-fluticasone 137-50 mcg/spray (Dymista) administer into each nostril Discontinued Reason: Doctor's Order 1 spray intranasal BID 30 days 23 grams 11RF Coding Level of Care Code Est Pt Level 2 (63919) Diagnoses Encounter to discuss test results Z71.2
== END 2024-07-30 14:56 | disposition home or self-care (01) ==
LOC: HO.HWS 12:45
PROVIDERS: PCP Physician Assistant; Visit Provider Advanced Practice Midwife
DX: Z71.2 Person consulting for explanation of examination or test findings (principal)
CPT/HCPCS: 99212

== ENCOUNTER 2024-08-06 10:04 | Outpatient (AMB) | payer OTHER, SELFPAY ==
[2024-08-06 10:07] VITALS: BP 132/80; PULSE 74; O2SAT 99; BMI 35.7
--- NOTE | 2024-08-06 10:07 | MHC.PC.OV ---
Vital Signs 08/06/24 10:07 Height 5 ft 2 in Weight 195 lb BMI 35.7 BP 132/80 Blood Pressure Location Lt brachial Position Sitting Pulse 74 Pulse Source Pulse Oximeter Pulse Oximetry (%) 99 Oxygen Delivery Method Room Air Intake Visit Reasons: Leg pain, swelling Retail Loss Prevention Specialist Required: No Accompanied by: Self / Same As Patient Allergies cat dander [CATS] Allergy (Mild, Verified 08/06/24 10:07) HAYFEVER Chocolate Allergy (Mild, Verified 08/06/24 10:07) HEADACHES dog dander [DOGS] Allergy (Mild, Verified 08/06/24 10:07) HAYFEVER Environmental Allergy (Mild, Uncoded 08/06/24 10:07) HAYFEVER yellow jackets Allergy (Uncoded 08/06/24 10:07) Anaphylaxis Tobacco use date assessed: 02/05/24 Dental Screening Dental Screen Date: 02/05/24 HPI Leg pain, swelling HPI Details 63-year-old female with past medical history of seizure disorder, DVT, Parkinson's disease, hypertension, major depressive disorder, generalized anxiety disorder, osteoporosis, COPD last seen June 2024 coming in for acute problem. In review of the notes, patient was seen by [facility] found to have sprain of MCL recommended PT and follow up as needed. Patient states over the last few day she has had bilateral leg swelling. She does mentioned she did not take her Eliquis over the weekend because she did not want to get out of bed. She regularly skips her Eliquis on the weekends because of this reason. She has pain with bending the legs but denies any cramping or any palpable lumps. She takes lasix every other day. [facility] Medical History Allergies Chronic allergic rhinitis Asthma-COPD overlap syndrome COPD exacerbation COVID-19 History of abnormal cervical Pap smear Spinal stenosis, cervical region Peripheral polyneuropathy Spondylosis of cervical spine Spondylosis of lumbar spine Cocaine abuse Alcohol abuse Hepatitis HIV (human immunodeficiency virus infection) Heart murmur History of cocaine abuse History of heroin abuse Hydradenitis Former cigarette smoker Recovering alcoholic GERD (gastroesophageal reflux disease) Lumbago with sciatica, left side Arthritis Back pain On anticoagulant therapy DVT (deep venous thrombosis) History of celiac disease Anxiety Panic attacks Depression PTSD (post-traumatic stress disorder) Parkinson disease History of frequent headaches Seizure Asthma Surgical History H/O excision of ganglion cyst Hx of esophagogastroduodenoscopy History of carpal tunnel surgery of left wrist Hx of nasal septoplasty History of hemorrhoidectomy Hx of colonoscopy Family History Mother No problems noted. Social History Housing: Apartment Are you a primary wound care technician to a significant other at home: No Do you presently have visiting nurse or other home services: Yes Alcohol intake: former Year quit: 2003 Comment: was seen at [facility]-called for note Patient Tobacco Use Status: Current everyday Tobacco user Tobacco use type: Cigarette Cigarette Packs Per Day: 0.5 Cigarettes Per Day: 10 Years Smoked: 45 e-Cigarette/Vaping Use: Former Use Second Hand Smoke Exposure: No service: No Current occupational status: disabled Cognitive needs: Yes (back brace) Hearing needs: No Vision needs: Yes Questionnaire PHQ-9 Over the last 2 weeks, how often have you been bothered by any of the following problems? 1. Little interest or pleasure in doing things: not at all 2. Feeling down, depressed, or hopeless: several days (current in treatment and taking medication) 3. Trouble falling or staying asleep, or sleeping too much: not at all 4. Feeling tired or having little energy: not at all 5. Poor appetite or overeating: not at all 6. Feeling bad about yourself - or that you are a failure or have let yourself or your family down: not at all 7. Trouble concentrating on things, such as reading the newspaper or watching television: not at all 8. Moving or speaking so slowly that other people could have noticed. Or the opposite - being so fidgety or restless that you have been moving around a lot more than usual: not at all 9. Thoughts that you would be better off or of hurting yourself in some way: not at all Total score: 1 Depression Screening Interpretation: Negative Depression Screening Done: Yes 54824 - PHQ-9 Billing: Yes Source: Developed by Drs. Boris Garcia, Qian Bullard, Hector Herzog and colleagues, with an educational miguel a from [employer] Thrive Questionnaire Date Thrive assessed: 02/05/24 AUDIT C Alcohol Use Questionnaire (AUDIT-C) 1. How often do you have a drink containing alcohol?: Never 3. How often do you have six or more drinks on one occasion?: Never Total Score: 0 LUISA-7 AMB Questionnaire LUISA-7 Date LUISA - 7 assessed: 02/05/24 Source: Developed by Drs. Boris Garcia, Qian Bullard, Hector Herzog and colleagues, with an educational miguel a from [employer] Review of Systems Const Denies chills, Reports fatigue and Denies fever(s) Eyes Reports no additional complaints ENT Reports no additional complaints Card Denies chest pain, Reports leg edema, Denies lightheadedness and Denies dyspnea Resp Denies dyspnea GI Reports no additional complaints Musc Details: Bilateral lower extremity swelling and discomfort Skin/Breast Reports system reviewed and no additional complaints, except as documented Endo Reports fatigue Physical exam (Primary Care) Vital Signs: Last Vital Signs Pulse 74 08/06/24 10:07 BP 132/80 08/06/24 10:07 Pulse Ox 99 08/06/24 10:07 Oxygen Delivery Method Room Air 08/06/24 10:07 BMI result Body Mass Index 35.7 Tobacco/Smoking Status: Tobacco use Status Tobacco use date assessed 02/05/24 08/06/24 10:10 Patient Tobacco Use Status Current everyday Tobacco 08/06/24 10:10 Tobacco use type Cigarette 08/06/24 10:10 e-Cigarette/Vaping Use Former Use 08/06/24 10:10 PHQ-9: PHQ-9 Score PHQ-9: Total score 1 08/06/24 10:11 Depression Screening Interpretation: Negative Thrive Assessment: Date of Thrive Assessment Date Thrive assessed 02/05/24 08/06/24 10:10 Const General: cooperative, healthy appearing, comfortable and no acute distress Orientation/consciousness: patient oriented x3 HENMT Head: Yes normocephalic Ears: hearing grossly normal bilaterally General nose exam: Normal external nose present Eyes General: appearance normal, both eyes and all related structures Conjunctivae: conjunctivae normal Neck Neck: Yes full ROM and Yes no lymphadenopathy Resp Effort & Inspection: normal respiratory effort Auscultation: clear to auscultation bilaterally, no crackles, no rales, no rhonchi and no wheezes Cardio Rate: regular rate Rhythm: regular rhythm Skin General skin exam: no rashes or lesions noted Neuro General: patient oriented x3 Gait exam (Neuro): Normal gait present Extrem Other: Bilateral lower extremity 1+ pitting edema without erythema or warmth. No open areas of skin or leakage from the legs. No tenderness to calf bilaterally. Strength, sensation, and pulses intact in bilateral lower extremities. Mild tenderness to palpation of left lower extremity. General: Yes normal to inspection, Yes full ROM and No edema Psych Affect: normal affect Attitude: cooperative Insight: Good insight present (Psych) Judgement: Good judgement present (Psych) Assessment and Plan Assessment & Plan (1) DVT (deep venous thrombosis): Comment: left groin- leg - On Eliquis Code(s): I82.409 - Acute embolism and thrombosis of unspecified deep veins of unspecified lower extremity Qualifiers: DVT location: lower extremity Affected thrombotic vein of extremity: other lower extremity vein Chronicity: unspecified Laterality: left Qualified Code(s): I82.492 - Acute embolism and thrombosis of other specified deep vein of left lower extremity Plan: On exam patient has bilateral lower extremity edema without erythema or warmth and no palpable lumps. Low suspicion for deep venous thrombosis however we will order for bilateral lower extremity ultrasound due to patient regularly skipping Eliquis, sedentary lifestyle, and history of DVTs. Advised patient to increase Lasix to daily instead of every other day for the next week and ordered for kidney function and electrolytes. Continue with regular exercise, compression stockings, and leg elevation. Strongly advised to take Eliquis regularly and do not skip doses. Discussed with patient red flag symptoms of DVT and cellulitis and when to present to the ER. (2) Hypersomnolence: Code(s): G47.10 - Hypersomnia, unspecified Plan: Patient complains of daytime somnolence and often falls asleep while sitting on the couch or after meals. Ordered for home sleep study. Plan This note was constructed using voice recognition software. While every effort has been made to ensure accuracy and information resource consultant, still areas may have been included sometimes these areas may affect the content or meeting of the given symptoms. Total time spent caring for the patient today was 30 minutes. This includes time spent before the visit reviewing the chart, time spent during the visit, and time spent after the visit and documentation. Orders: Orders US venous duplex LE BI Today I82.492 - Acute embolism and thrombosis of other specified deep vein of left lower extremity Comprehensive Met. Panel Today Z00.00 - Encounter for general adult medical examination without abnormal findings RT home sleep study Today G47.10 - Hypersomnia, unspecified Medications: Refilled furosemide 20 mg PO DAILY 90 days 90 tabs 3RF M79.89 - Other specified soft tissue disorders Coding Level of Care Code Est Pt Level 4 (54672) Diagnoses Deep vein thrombosis (DVT) of other vein of left lower extremity, unspecified chronicity I82.492 DVT location: lower extremity Affected thrombotic vein of extremity: other lower extremity vein Chronicity: unspecified Laterality: left Hypersomnolence G47.10
== END 2024-08-06 10:59 | disposition home or self-care (01) ==
PROVIDERS: PCP Physician Assistant
DX: I82.492 Acute embolism and thrombosis of other specified deep vein of left lower extremity (principal); G47.10 Hypersomnia, unspecified

== ENCOUNTER 2024-08-06 10:04 | Outpatient (REF) | payer OTHER, SELFPAY ==
[2024-08-06 12:12] LABS: Alanine Aminotransferase 16 U/L (0-31); Alkaline Phosphatase 104 U/L (39-117); Anion Gap 11 (12-20); Aspartate Amino Transferase 17 U/L (5-31); Bilirubin Total 0.1 mg/dL (0.0-1.0); Blood Urea Nitrogen 16 mg/dL (9-16); Carbon Dioxide 25 mmol/L (22-29); Chloride 103 mmol/L (96-108); Estimated Glomerular Filt Rate 54; Glucose Random 90 mg/dL (60-115); Potassium 4.2 mmol/L (3.3-5.1); Sodium 135 mmol/L (135-145)
== END 2024-08-06 10:05 | disposition home or self-care (01) ==
LOC: HO.LAB 10:04
PROVIDERS: Absent Provider Physician Assistant; PCP Physician Assistant
DX: I82.492 Acute embolism and thrombosis of other specified deep vein of left lower extremity (principal); G47.10 Hypersomnia, unspecified; Z00.00 Encounter for general adult medical examination without abnormal findings
CPT/HCPCS: 36415; 80053; 96127; 99212

== ENCOUNTER 2024-08-12 08:26 | Outpatient (REF) | payer OTHER, SELFPAY ==
--- NOTE | ~2024-08-12 | US_ITS ---
EXAMINATION: US TRIPLEX LOWER EXTREMITY, BILATERAL CLINICAL INFORMATION: Rule out DVT, missed doses of Ahlquist COMPARISON: Left lower extremity duplex on 10/30/2023 TECHNIQUE: Color-flow triplex imaging with spectral analysis and compression Doppler were performed on the bilateral lower extremities. FINDINGS: Respiratory variation, normal compression and augmented flow are noted throughout the bilateral lower extremities. The visualized common femoral vein, superficial femoral vein, profunda femoral vein, popliteal vein and midcalf peroneal and posterior tibial venous segments show no evidence of deep venous thrombosis bilaterally. There is no Gibbs's cyst. US/US venous duplex LE IMPRESSION: No evidence of deep venous thrombosis involving the bilateral lower extremities. The previously identified chronic appearing thrombus in the left common femoral vein is not visualized on this exam. Electronically signed by: Whitley Ramires MD 08/12/2024 09:56 AM EDT
== END 2024-08-12 08:27 | disposition home or self-care (01) ==
LOC: HO.US 08:26
PROVIDERS: PCP Physician Assistant
DX: I82.492 Acute embolism and thrombosis of other specified deep vein of left lower extremity (principal)
CPT/HCPCS: 93970

== ENCOUNTER 2024-08-26 11:30 | Outpatient (REF) | payer OTHER, SELFPAY ==
[2024-08-26 13:54] LABS: Hematocrit 34.5 % (37.0-47.0); Hemoglobin 11.5 g/dl (12.0-16.0); Mean Corpuscular HGB Conc 33.3 g/dl (31.0-35.0); Mean Corpuscular Hemoglobin 32.5 pg (27.0-33.0); Mean Corpuscular Volume 97.5 fL (80.0-98.0); Mean Platelet Volume 9.8 fL (9.4-12.3); Platelet Count 263 X10*3/uL (160-400); Red Blood Count 3.54 X10*6/uL (4.20-5.50); White Blood Count 6.7 X10*3/uL (4.8-10.8)
[2024-08-26 14:28] LABS: Alanine Aminotransferase 18 U/L (0-31); Albumin Level 4.2 g/dL (3.5-5.0); Alkaline Phosphatase 81 U/L (39-117); Anion Gap 11 (12-20); Aspartate Amino Transferase 17 U/L (5-31); Bilirubin Total 0.2 mg/dL (0.0-1.0); Blood Urea Nitrogen 13 mg/dL (9-16); Calcium 9.3 mg/dL (8.4-10.2); Carbon Dioxide 26 mmol/L (22-29); Chloride 106 mmol/L (96-108); Cholesterol 196 mg/dL (<200); Estimated Glomerular Filt Rate 45; Glucose Fasting 103 mg/dL (60-99); HDL Cholesterol 40 mg/dL (>40); Iron 98 mcg/dL (30-160); LDL Cholesterol Calculated 132 mg/dL (<100); Percent Iron Saturation 44 % (15-50); Potassium 4.3 mmol/L (3.3-5.1); Sodium 139 mmol/L (135-145); Total Iron Binding Capacity 221 mcg/dL (228-428); Total Protein 7.3 g/dL (6.5-8.0); Triglycerides 120 mg/dL (<150); Unsaturated Iron Binding 123 ug/dL
[2024-08-26 14:49] LABS: Folate > 20.0 ng/mL (> or = 4.0); Vitamin B12 374 pg/mL (200-900)
== END 2024-08-26 11:31 | disposition home or self-care (01) ==
LOC: HO.LAB 11:30
PROVIDERS: PCP Physician Assistant; Visit Provider Physician Assistant
DX: I10 Essential (primary) hypertension (principal); D50.9 Iron deficiency anemia, unspecified; E53.8 Deficiency of other specified B group vitamins; F51.01 Primary insomnia; Z23 Encounter for immunization; M48.061 Spinal stenosis, lumbar region without neurogenic claudication
CPT/HCPCS: 36415; 80053; 80061; 82607; 82746; 83540; 85027; 90471; 90656; 99212

== ENCOUNTER 2024-08-26 11:30 | Outpatient (AMB) | payer OTHER, SELFPAY ==
--- NOTE | 2024-08-26 11:36 | A.OFFPC_ITS ---
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 Accompanied by: Self / Same As Patient Allergies cat dander [CATS] Allergy (Mild, Verified 08/26/24 11:58) HAYFEVER Chocolate Allergy (Mild, Verified 08/26/24 11:58) HEADACHES dog dander [DOGS] Allergy (Mild, Verified 08/26/24 11:58) HAYFEVER Environmental Allergy (Mild, Uncoded 08/26/24 11:58) HAYFEVER yellow jackets Allergy (Uncoded 08/26/24 11:58) Anaphylaxis Medication List - Last Reconciled 08/26/24 by Sudhir Martin PA-C acetaminophen (Pain Relief (acetaminophen)) 500 mg PO BID 90 days acetaminophen-codeine 300-30 mg 1 tab PO Q6H PRN [adult pullups As directed] albuterol sulfate 90 mcg/actuation (Ventolin HFA) 2 puffs inhalation QID PRN 30 days alendronate (Fosamax) 70 mg PO QWEEK 12 weeks amitriptyline 50 mg PO BEDTIME 90 days apixaban (Eliquis) 5 mg PO BID 90 days azithromycin For 250 mg dose pack: take 500 mg today (day 1), then 250 mg for 4 days (days 2-5) PO back brace As directed baclofen 20 mg PO BEDTIME 90 days [bed pads As directed] cane As directed cholecalciferol (vitamin D3) 50 mcg PO DAILY 90 days clonazepam 0.5 mg PO BID compr.stocking,knee,long,large As directed desvenlafaxine succinate ER 50 mg PO DAILY diaper,brief,adult,disposable As directed diphenhydramine HCl (Banophen) 25 mg PO Q8H 90 days [disposable face masks As directed] disposable gloves As directed epinephrine (EpiPen 2-Kamaljit) 0.3 mg (0.3 mL) IM ONCE PRN 30 days fluticasone furoate-vilanterol 200-25 mcg/dose (Breo Ellipta) 1 inh inhalation DAILY 30 days fluticasone propionate 50 mcg/actuation 1 spray intranasal BID 30 days lcrpnocursf-mhsoszewj-okpjkgac 200-62.5-25 mcg (Trelegy Ellipta) 1 inh inhalation DAILY 30 days folic acid 1 mg PO DAILY 90 days furosemide 20 mg PO DAILY 90 days gabapentin 400 mg PO BEDTIME gabapentin 200 mg (2 x 100 mg) PO BEDTIME 90 days humidifiers (Cool Mist Humidifier) As directed incontinence pad, liner, disp As directed leg brace (Knee Support Brace) 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 left knee brace with medial support lidocaine 5% 1 patch topical DAILY 30 days lisinopril 2.5 mg PO DAILY loperamide 2 mg PO Q8H PRN 90 days magnesium oxide 400 mg PO BEDTIME 90 days miscellaneous medical supply 1 ea miscellaneous DAILY 99 days montelukast 10 mg PO DAILY 90 days omeprazole 20 mg PO DAILY 90 days oxybutynin chloride ER 5 mg PO DAILY primidone 100 mg (2 x 50 mg) PO BID 90 days pseudoephedrine HCl ER 120 mg PO Q12H 30 days [round raised toilet seat As directed] [soft neck brace As directed] topiramate (Topamax) 200 mg PO BID 90 days triamcinolone acetonide 0.5% 1 appl topical DAILY 90 days umeclidinium 62.5 mcg/actuation (Incruse Ellipta) 1 inh inhalation DAILY 30 days varenicline 0.5 mg PO; Take 0.5 mg qd x 3 days, then 0.5 mg b.i.d. x4 days 7 days varenicline 1 mg PO BID 28 days varenicline (Chantix Starting Month Box) PO PER PKG DIR vitamin B complex 1 tab PO DAILY 90 days walker (Ultra-Light Rollator misc) As directed zolpidem 10 mg PO BEDTIME Tobacco use date assessed: 02/05/24 Dental Screening Dental Screen Date: 02/05/24 HPI Follow up for Knee medication management HPI Details Patient is a 63 year female here today for a follow-up visit. Patient has a past medical history significant for MS, tobacco dependency, obesity, insomnia. She has had knee pain for quite some time, has followed up with Orthopedics whom have send patient for an MRI of her knee that did show-->. Acute grade 2 sprain/partial tear of the medial collateral ligament with prominent adjacent soft tissue edema. 2. No meniscal tear. 3. Minimal medial compartment arthrosis. Trace joint effusion and trace Gibbs's cyst. Mild circumferential subcutaneous reece . Patient has been in physical therapy for her knee.. Insomnia: She reports over the last several months she has been having difficulty with staying asleep. She does use zolpidem on a nightly basis though reports it has not been effective for her. Concern--> she also reports over last few weeks feeling very tired in the tight time especially after she eats. She does have an order for home sleep study which would be reasonable to check as she does have nasal polyps and is obese which puts her at risk for obstructive sleep apnea. [facility] Medical History Allergies Chronic allergic rhinitis Asthma-COPD overlap syndrome COPD exacerbation COVID-19 History of abnormal cervical Pap smear Spinal stenosis, cervical region Peripheral polyneuropathy Spondylosis of cervical spine Spondylosis of lumbar spine Cocaine abuse Alcohol abuse Hepatitis HIV (human immunodeficiency virus infection) Heart murmur History of cocaine abuse History of heroin abuse Hydradenitis Former cigarette smoker Recovering alcoholic GERD (gastroesophageal reflux disease) Lumbago with sciatica, left side Arthritis Back pain On anticoagulant therapy DVT (deep venous thrombosis) History of celiac disease Anxiety Panic attacks Depression PTSD (post-traumatic stress disorder) Parkinson disease History of frequent headaches Seizure Asthma Surgical History H/O excision of ganglion cyst Hx of esophagogastroduodenoscopy History of carpal tunnel surgery of left wrist Hx of nasal septoplasty History of hemorrhoidectomy Hx of colonoscopy Family History Mother No problems noted. Social History Housing: Apartment Are you a primary care director to a significant other at home: No Do you presently have visiting nurse or other home services: Yes Alcohol intake: former Year quit: 2003 Comment: was seen at [facility]-called for note Patient Tobacco Use Status: Current everyday Tobacco user Tobacco use type: Cigarette Cigarette Packs Per Day: 0.5 Cigarettes Per Day: 10 Years Smoked: 45 Packs Per Year: 23 Packs per year/per ci.50 e-Cigarette/Vaping Use: Former Use Second Hand Smoke Exposure: No service: No Current occupational status: disabled Cognitive needs: Yes (back brace) Hearing needs: No Vision needs: Yes Questionnaire Thrive Questionnaire Date Thrive assessed: 02/05/24 Are you currently unemployed and looking for a job?: Yes LUISA-7 AMB Questionnaire LUISA-7 Date LUISA - 7 assessed: 02/05/24 Source: Developed by Drs. Boris Garcia, Qian Bullard, Hector Herzog and colleagues, with an educational miguel a from [employer]. Review of Systems Const Denies headache(s) Eyes Denies loss of vision ENT Denies vertigo, Denies dizziness, Denies headache(s) and Denies sore throat Card Denies chest pain, Denies leg edema and Denies lightheadedness Resp Denies cough, Denies hemoptysis and Denies wheezing GI Denies abdominal pain, Denies melena, Denies constipation, Denies diarrhea and Denies vomiting Denies urinary frequency, Denies dysuria and Denies urinary urgency Musc Denies arthralgias, Denies joint swelling, Denies numbness and Denies tingling Neuro Denies Abnormal speech present, Denies behavioral changes, Denies vertigo, Denies dizziness, Denies headache(s), Denies loss of vision, Denies memory loss, Denies numbness and Denies tingling Psych Reports abnormal sleep pattern, Denies anxiety, Denies behavioral changes, Denies depression, Denies memory loss and Denies panic attacks Carlos/Lymph Denies easy bleeding and Denies easy bruising Aller/Immun Denies wheezing Physical exam (Primary Care) Vital Signs: Last Vital Signs Pulse 73 08/26/24 11:47 BP 118/70 08/26/24 11:47 Pulse Ox 98 08/26/24 11:47 Oxygen Delivery Method Room Air 08/26/24 11:47 BMI result Body Mass Index 36.4 Tobacco/Smoking Status: Tobacco use Status Tobacco use date assessed 02/05/24 08/26/24 11:38 Patient Tobacco Use Status Current everyday Tobacco 08/26/24 11:38 Tobacco use type Cigarette 08/26/24 11:38 e-Cigarette/Vaping Use Former Use 08/26/24 11:38 Thrive Assessment: Date of Thrive Assessment Date Thrive assessed 02/05/24 08/26/24 11:38 Const General: healthy appearing, no acute distress, alert and awake Nutritional Appearance: well nourished Orientation/consciousness: oriented to person, oriented to place and oriented to time HENMT Ears: TM's normal bilaterally General nose exam: Normal nasal mucous membranes and turbinates present Eyes Conjunctivae: conjunctivae normal Sclerae: sclerae normal Pupils: Equal, round and reactive pupils present Neck Neck: Yes no lymphadenopathy and Yes no JVD Thyroid: Thyroid normal Carotids: no bruits Resp Effort & Inspection: normal respiratory effort and not tachypneic Auscultation: no crackles, no rales, no rhonchi and no wheezes Cardio Rate: regular rate Rhythm: regular rhythm Heart sounds: no murmurs and normal S1 and S2 GI Palpation (GI): Soft to palpation, nontender, no hepatomegaly and no splenomegaly Auscultation: normal bowel sounds Skin General skin exam: no rashes or lesions noted and dry skin Neuro General: oriented to person, oriented to place and oriented to time Cranial nerves: Yes Equal, round and reactive pupils present Speech: No Abnormal speech present Gait exam (Neuro): Normal gait present Motor exam (neuro): no tremor noted Extrem Right upper extremity: full ROM Left upper extremity: full ROM Right lower extremity: full ROM; no edema Left lower extremity: full ROM; no edema Psych Mental Status: mental status grossly normal Speech and movement: Normal speech and movement present Affect: normal affect Attitude: cooperative Thought process: Normal thought process present Office Procedures Flu Questionnaire Does the patient have a severe egg allergy?: No Does the patient have severe life threatening allergies?: No Does the patient have a fever or illness today?: No Has the patient ever had Guillain-[place] Syndrome?: No Has the patient ever had any past reaction to a flu shot?: No Immunizations Fluarix Triv [id number] (PF) 45 mcg (15 mcg x 3)/0.5 mL IM syringe Performing Provider: Sudhir Martin PA-C Performing Location: [facility] Administered by: YOLETTE Malik on 08/26/24 11:47 Dose Route Admin Location Dispensed Lot Number Expiration Date [facility] Sales Representative Aircraft 0.5 mL IM Left Deltoid 0.5 mL [id number] 05/17/25 [id number] [employer] VIS Given Date VIS Provided VIS Publication Date 08/26/24 Single Vaccine 21 Eligibility Eligibility Date Funding Source Not [facility] Eligible 08/26/24 Private Coding Level of Care Code Est Pt Level 4 (93642) Diagnoses Primary insomnia F51.01 Insomnia type: primary Sprain of medial collateral ligament of left knee, initial encounter S83.412A Encounter type: initial encounter Primary hypertension I10 Hypertension type: primary hypertension Assessment & Plan Assessment & Plan (1) Insomnia: Code(s): G47.00 - Insomnia, unspecified Category: Medical Qualifiers: Insomnia type: primary Qualified Code(s): F51.01 - Primary insomnia Plan: Patient has been suffering with worsening insomnia, reports only being able to sleep to 3 hours at a time and being woken up. Elevated advised to get evaluated for obstructive sleep apnea and will be seeing ENT about her nasal congestion likely related to nasal polyps which may be causing her breathing issues at night. We also did discuss perhaps having side effect of medication namely the pseudoephedrine perhaps causing her sleeping disturbance. (2) MCL sprain of left knee: Code(s): S83.412A - Sprain of medial collateral ligament of left knee, initial encounter Category: Medical Qualifiers: Encounter type: initial encounter Qualified Code(s): S83.412A - Sprain of medial collateral ligament of left knee, initial encounter Plan: Currently in physical therapy for her left knee MCL sprain. (3) HTN (hypertension): Code(s): I10 - Essential (primary) hypertension Category: Medical Qualifiers: Hypertension type: primary hypertension Qualified Code(s): I10 - Essential (primary) hypertension Plan: Patient's blood pressure acceptable today in office. Will continue on her dose of lisinopril. Orders: Orders Vitamin B12 and Folate Today E53.8 - Deficiency of other specified B group vitamins Influenza [id number] Immunization Today Z23 - Encounter for immunization IRON PROFILE Today D50.9 - Iron deficiency anemia, unspecified, E53.8 - Deficiency of other specified B group vitamins Complete Blood Count no Diff Today E53.8 - Deficiency of other specified B group vitamins Medications: Changed From acetaminophen-codeine 300-30 mg 1 tab PO Q6H PRN 20 tabs 0RF pain M48.061 - Spinal stenosis, lumbar region without neurogenic claudication To acetaminophen-codeine 300-30 mg 1 tab PO Q8H PRN 9 tabs 0RF pain 3 days M48.061 - Spinal stenosis, lumbar region without neurogenic claudication Discontinued azithromycin Discontinued Reason: Doctor's Order For 250 mg dose pack: take 500 mg today (day 1), then 250 mg for 4 days (days 2-5) PO 6 tabs 0RF J40 - Bronchitis, not specified as acute or chronic, J41.0 - Simple chronic bronchitis
[2024-08-26 11:47] VITALS: BP 118/70; PULSE 73; O2SAT 98; BMI 36.4
== END 2024-08-26 12:20 | disposition home or self-care (01) ==
PROVIDERS: PCP Physician Assistant; Visit Provider Physician Assistant
DX: F51.01 Primary insomnia (principal); S83.412A Sprain of medial collateral ligament of left knee, initial encounter; I10 Essential (primary) hypertension; Z23 Encounter for immunization

== ENCOUNTER 2024-09-04 08:49 | Outpatient (AMB) | payer OTHER, SELFPAY ==
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
== END 2024-09-04 09:51 | disposition home or self-care (01) ==
PROVIDERS: PCP Physician Assistant; Referring Provider Student in an Organized Health Care Education/Training Program; Visit Provider Neurological Surgery
DX: M47.816 Spondylosis without myelopathy or radiculopathy, lumbar region (principal)
CPT/HCPCS: 99204

== ENCOUNTER → 2024-09-04 08:49 | Outpatient (BNVA) | payer OTHER, SELFPAY | PROVIDERS: PCP Physician Assistant; Visit Provider Neurological Surgery | DX: M47.816 Spondylosis without myelopathy or radiculopathy, lumbar region (principal) | CPT/HCPCS: 99202 ==

== ENCOUNTER 2024-09-10 09:00 | Outpatient (RCR) | payer OTHER, SELFPAY ==
--- NOTE | 2024-08-10 10:10 | MHC.PT.EP ---
[facility] Office [place] Office [place] Office [address] Elkin Eric [address] [phone] F: [phone] F: [phone] F: [phone] F: [phone] Physical Therapy Plan of Care Date of Evaluation: 08/10/24 Date of Surgery: n/a Diagnosis: MCL sprain L nee Assessment: Patient is a 63 year old female presenting to PT with complaints of pain in her L knee. Pt reports onset of pain began a few months ago due to slipping on dog potty pad. She presents today with impairments in pain, knee strength, hip strength. Pt's current occupation is disabled, with baseline physical activities including ambulating, standing, ADLs, stair negotiation. Pt expresses intermediate goal of reducing pain, and is motivated to work towards this in PT. Clinical presentation today is most consistent with signs and sx associated with L knee pain and pt will benefit from skilled PT 2 week x 4 weeks to address the following problems and impairments noted upon evaluation: pain, knee strength, hip strength. These problems limit the patient with the following functional activities: ambulating, standing, ADLs, stair negotiation. The prescribed treatment plan of care is medically necessary. Co-morbidities of parkinsons disease, seizure disorder, HIV, hepatitis, on blood thinners were identified and taken into considerations of plan of care. Pt was educated on HEP, role of PT, prognosis, POC. Frequency and Duration: The patient will be seen 2 x week x 4 weeks Short Term Goals: Pt will demonstrate 5/5 knee MMT strength on L in 2 weeks. Pt will demonstrate improved hip MMT strength by 1/3 grade in 2 weeks for improved lumbopelvic stability. [employer] Teacher Goals: Pt will demonstrate improved LEFI score by 9 points in 4 weeks for improved functional mobility. Pt will demonstrate ability to ambulate household and community distances with min to no pain in 4 weeks. Pt will demonstrate ability to negotiate stairs with min to no pain in 4 weeks for improved access to her home. Treatment Plan: Modalities to reduce pain, spasms and effusion. Manual therapy to restore motion and function. Therapeutic exercise to improve strength and flexibility. Neuromuscular re-education for posture and balance. Therapeutic activities to return to functional activities of daily living. Electronically signed by: Julia Grider, PT, DPT, ATC Please sign and return to therapist. Thank you for your referral.
--- NOTE | 2024-09-29 13:29 | MHC.PT.DC ---
[facility] [place] Office [place] Office [place] Office [address] Elkin Eric [address] [phone] F: [phone] F: [phone] F: [phone] F: [phone] Physical Therapy Discharge Report Diagnosis: MCL sprain L nee Date of Surgery: n/a Date of Evaluation: 08/10/24 Date of Discharge: 09/29/24 Treatments to Date: 4 Cancellations to Date: 8 No Shows to Date: 2 Discharge Status: Patient Elected to Stop Visit Non-compliance Discharge Summary: Pt cancelled remaining appointments. Therefore to be d/c per her request. Electronically signed by: Julia Grider, PT, DPT, ATC Please sign and return to therapist. Thank you for your referral.
== END 2024-09-29 13:30 | disposition home or self-care (01) ==
LOC: HO.PTCHIC 09:00
PROVIDERS: PCP Physician Assistant; Visit Provider Physician Assistant
DX: S83.412D Sprain of medial collateral ligament of left knee, subsequent encounter (principal)
CPT/HCPCS: 97110; 97162

== ENCOUNTER → 2024-09-21 07:44 | Outpatient (BNV) | payer OTHER, SELFPAY | PROVIDERS: PCP Physician Assistant; Visit Provider Radiology Diagnostic Radiology | DX: M47.816 Spondylosis without myelopathy or radiculopathy, lumbar region (principal) | CPT/HCPCS: 72148 ==

== ENCOUNTER 2024-09-21 07:55 | Outpatient (REF) | payer OTHER, SELFPAY ==
--- NOTE | ~2024-09-21 | MR_ITS ---
EXAMINATION: MR LUMBAR SPINE WITHOUT CONTRAST CLINICAL INFORMATION: Spondylosis without myelopathy or radiculopathy, lumbar spine. COMPARISON: MRI dated July 15, 2020. Correlated to CT dated February 14, 2024. TECHNIQUE: MRI of the lumbar spine was obtained using routine sequences without contrast. FINDINGS: [Last Rib-bearing vertebra labeled T12. No bone marrow STIR signal abnormality. Multilevel marginal osteophyte formation and disc desiccation. Grade 1 retrolisthesis, L1-2, L3-4 and L4-5. Conus medullaris ends at the inferior endplate of T12 with normal signal. T12-L1: No compression upon neural elements. L1-2: Broad-based disc bulging. Facet joint hypertrophy. No compression upon neural elements. L2-3: Broad-based disc bulging. Facet joint hypertrophy as well as ligamentum flavum. No compression upon neural elements. L3-4: Broad-based disc bulging. Facet joint and ligamentum flavum hypertrophy. Reduced AP diameter of the thecal sac and the neural foramina. L4-5: Broad-based disc bulging. Facet joint and ligamentum flavum hypertrophy. Reduced AP diameter of the thecal sac encroaching the exiting nerve roots. Bilateral neuroforamina narrowing. L5-S1: Broad-based disc bulging. Facet joint and ligamentum flavum hypertrophy. Reduced AP diameter of the thecal sac encroaching the neural elements. Bilateral neuroforamina narrowing. No prevertebral compartment hematoma, mass or fluid collections. Bilateral multifocal different sizes hyperintense T2 lesions throughout the kidneys. MR/MR lumbar spine wo con IMPRESSION: Multilevel spondylosis more conspicuous at L4-5 and L5-S1 encroaching the neural elements of the thecal sac and the L4 exiting nerve roots. Cystic lesions, both kidneys. Electronically signed by: Shaw Courtney MD 09/21/2024 09:16 AM EST
== END 2024-09-21 07:56 | disposition home or self-care (01) ==
LOC: HO.MRI 07:55
PROVIDERS: PCP Physician Assistant; Visit Provider Neurological Surgery
DX: M47.816 Spondylosis without myelopathy or radiculopathy, lumbar region (principal)
CPT/HCPCS: 72148

== ENCOUNTER → 2024-09-23 08:56 | Outpatient (REF) | payer OTHER, SELFPAY | LOC: HO.SL 08:56 | PROVIDERS: PCP Physician Assistant | DX: G47.10 Hypersomnia, unspecified (principal) | CPT/HCPCS: 95806 ==

== ENCOUNTER → 2024-09-24 09:09 | Outpatient (BNV) | payer OTHER, SELFPAY | PROVIDERS: PCP Physician Assistant; Visit Provider Internal Medicine | DX: R06.83 Snoring (principal); G47.10 Hypersomnia, unspecified | CPT/HCPCS: 95806 ==

== ENCOUNTER 2024-10-21 07:20 | Outpatient (AMB) | payer OTHER, SELFPAY ==
[2024-10-21 07:42] VITALS: BMI 33.5
--- NOTE | 2024-10-21 07:42 | A.OFFVIS_ITS ---
Vital Signs 10/21/24 07:42 Height 5 ft 2 in Weight 183 lb 6 oz BMI 33.5 Intake Visit Reasons: ER follow up Intake Note: Patient presents for ER follow up Allergies cat dander [CATS] Allergy (Mild, Verified 10/21/24 07:47) HAYFEVER Chocolate Allergy (Mild, Verified 10/21/24 07:47) HEADACHES dog dander [DOGS] Allergy (Mild, Verified 10/21/24 07:47) HAYFEVER Environmental Allergy (Mild, Uncoded 10/21/24 07:47) HAYFEVER yellow jackets Allergy (Uncoded 10/21/24 07:47) Anaphylaxis Medication List - Last Reconciled 10/21/24 by Zunilda Enriquez MD acetaminophen (Pain Relief (acetaminophen)) 500 mg PO BID 90 days acetaminophen-codeine 300-30 mg 1 tab PO Q8H PRN 3 days [adult pullups As directed] albuterol sulfate 90 mcg/actuation (Ventolin HFA) 2 puffs inhalation QID PRN 30 days alendronate (Fosamax) 70 mg PO QWEEK 12 weeks amitriptyline 25 mg PO BEDTIME 90 days amlodipine 5 mg PO DAILY 90 days apixaban (Eliquis) 5 mg PO BID 90 days B complex with C 20-folic acid 1 mg (Wescaps) 1 cap PO DAILY 90 days back brace As directed baclofen 20 mg PO BEDTIME 90 days [bed pads As directed] cane As directed cholecalciferol (vitamin D3) 50 mcg PO DAILY 90 days clonazepam 0.5 mg PO BID compr.stocking,knee,long,large As directed desvenlafaxine succinate ER 50 mg PO DAILY diaper,brief,adult,disposable As directed diphenhydramine HCl (Banophen) 25 mg PO Q8H 90 days [disposable face masks As directed] disposable gloves As directed epinephrine (EpiPen 2-Kamaljit) 0.3 mg (0.3 mL) IM ONCE PRN 30 days fluticasone furoate-vilanterol 200-25 mcg/dose (Breo Ellipta) 1 inh inhalation DAILY 30 days fluticasone propionate 50 mcg/actuation 1 spray intranasal BID 30 days uhfmqsqgxqe-jmqkveqyi-cxyzmieu 200-62.5-25 mcg (Trelegy Ellipta) 1 inh inhalation DAILY 30 days folic acid 1 mg PO DAILY 90 days furosemide 20 mg PO DAILY 90 days gabapentin 400 mg PO BEDTIME gabapentin 200 mg (2 x 100 mg) PO BEDTIME 90 days humidifiers (Cool Mist Humidifier) As directed incontinence pad, liner, disp As directed leg brace (Knee Support Brace) 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 left knee 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 with medial support lidocaine 5% 1 patch topical DAILY 30 days lisinopril 2.5 mg PO DAILY loperamide 2 mg PO Q8H PRN 90 days magnesium oxide 400 mg PO BEDTIME 90 days miscellaneous medical supply 1 ea miscellaneous DAILY 99 days montelukast 10 mg PO DAILY 90 days omeprazole 20 mg PO DAILY 90 days oxybutynin chloride ER 5 mg PO DAILY primidone 100 mg (2 x 50 mg) PO BID 90 days pseudoephedrine HCl ER 120 mg PO Q12H 30 days [round raised toilet seat As directed] [soft neck brace As directed] topiramate (Topamax) 200 mg PO BID 90 days triamcinolone acetonide 0.5% 1 appl topical DAILY 90 days umeclidinium 62.5 mcg/actuation (Incruse Ellipta) 1 inh inhalation DAILY 30 days varenicline 0.5 mg PO; Take 0.5 mg qd x 3 days, then 0.5 mg b.i.d. x4 days 7 days varenicline 1 mg PO BID 28 days varenicline (Chantix Starting Month Box) PO PER PKG DIR walker (Ultra-Light Rollator misc) As directed zolpidem 10 mg PO BEDTIME HPI Comments Details: 64 y/o female patient presents for follow up of head tremor, and gait disorder. She was in ER 2 weeks ago for syncope ? she had taken higher doses of topiramate for 2 days prior to that and her intention was that it will help her lose weight.she was discharged few days ago. she was told she was dehydrated Her head and hand tremors have been stable with primidone Her psychiatrist gives her topiramate for PTSD. She sleeps good . Her sleep schedule is 10-11 pm to 8:30 am but wakes up frequently. She takes gabapentin 600 mg qhs baclofen 10 mg clonazepam 0.5 mg bid amitriptyline 25 mg and ambien 5 mg. she has been sober for 11 years. She stopped cigarettes She switched to vaping. 5 % nicotine. Pt has hx of anxiety and panic attack, sees psychiatrist every three months. She walks her dog daily, uses cane to walk. [facility] Medical History Allergies Chronic allergic rhinitis Asthma-COPD overlap syndrome COPD exacerbation COVID-19 History of abnormal cervical Pap smear Spinal stenosis, cervical region Peripheral polyneuropathy Spondylosis of cervical spine Spondylosis of lumbar spine Cocaine abuse Alcohol abuse Hepatitis HIV (human immunodeficiency virus infection) Heart murmur History of cocaine abuse History of heroin abuse Hydradenitis Former cigarette smoker Recovering alcoholic GERD (gastroesophageal reflux disease) Lumbago with sciatica, left side Arthritis Back pain On anticoagulant therapy DVT (deep venous thrombosis) History of celiac disease Anxiety Panic attacks Depression PTSD (post-traumatic stress disorder) Parkinson disease History of frequent headaches Seizure Asthma Surgical History H/O excision of ganglion cyst Hx of esophagogastroduodenoscopy History of carpal tunnel surgery of left wrist Hx of nasal septoplasty History of hemorrhoidectomy Hx of colonoscopy Family History Mother No problems noted. Social History Housing: Apartment Are you a primary wound care coordinator to a significant other at home: No Do you presently have visiting nurse or other home services: Yes Alcohol intake: former Year quit: 2003 Comment: was seen at [facility]-called for note Patient Tobacco Use Status: Current everyday Tobacco user Tobacco use type: Cigarette Cigarette Packs Per Day: 0.5 Cigarettes Per Day: 10 Years Smoked: 45 e-Cigarette/Vaping Use: Former Use Second Hand Smoke Exposure: No service: No Current occupational status: disabled Cognitive needs: Yes (back brace) Hearing needs: No Vision needs: Yes Physical Exam Vital Signs: BMI result Body Mass Index 33.5 Const General: cooperative, healthy appearing and comfortable Nutritional Appearance: average body habitus Orientation/consciousness: patient oriented x3 Limitations: no limitations HEENT Other: yes yes head tremors - mild Jaw tremors, voice and tongue tremors Head: Yes normal to inspection and Yes normocephalic Eyes Pupils: Equal, round and reactive pupils present Neck Other: restricted range of motion Neuro Other: Voice- normal, tremors No rest tremors No cog wheel rigidity gait mild off balance but can walk good without walker General: patient oriented x3, tone normal, moves all extremities and no focal motor deficits Cranial nerves: Yes CN's II-XII intact bilaterally, Yes Facial sensation intact/ muscles of mastication intact, Yes Equal, round and reactive pupils present, Yes Bilaterally intact EOM present, Yes Nystagmus not present, Yes Normal facial strength present and Yes Midline tongue present Cognition (Neuro): normal cognition Psych Appearance: grossly normal Speech and movement: Normal speech and movement present Assessment & Plan Assessment & Plan (1) Benign head tremor: Comment: Likely related to cervical spondylosis and dystonia Code(s): G25.0 - Essential tremor Category: Medical (2) Gait disorder: Comment: multifactorial, arthritis, h/o alcoholism,? neuropathy Code(s): R26.9 - Unspecified abnormalities of gait and mobility Category: Medical (3) Tobacco dependence: Code(s): F17.200 - Nicotine dependence, unspecified, uncomplicated Category: Medical (4) Sleep disorder: Code(s): G47.9 - Sleep disorder, unspecified Category: Medical Plan primidone 100mg bid for better tremors control Continue to take gabapentin to 600 mg q HS for sleep. Magnesium 400 mg qHS to prevent muscle spasm. Sleep hygiene education provided. Advised patient to limit smoking in the evening. Medications: Changed From amitriptyline 50 mg PO BEDTIME 90 days 90 tabs 2RF G47.00 - Insomnia, unspecified To amitriptyline 25 mg PO BEDTIME 90 days 90 tabs 2RF G47.00 - Insomnia, unspecified Coding Level of Care Code Est Pt Level 4 (49400) Diagnoses Benign head tremor G25.0 Gait disorder R26.9 Tobacco dependence F17.200 Sleep disorder G47.9
--- OUTSIDE RECORDS SUMMARY | 2024-10-27 16:15 | XMS_ITS | Clinical Summary ---
Author Organization Unknown Care Team Providers Care Medication Administration Professional Name Role Phone RONN DIMAS Unavailable Unavailable LAURA PEREZ, MICHAEL Unavailable Unavailable Payers Payer Name Policy Type Policy Number Effective Date Expira tion Date [facility] ([facility] [id number] MEDICAID [facility] [id number] Problems Condition Name Condition Details Condition Category Status Onset Date Resolution Date Last Treatment Date Treating Clinician Comments OTHER PSYCHOACTIVE SUBSTANCE ABUSE, UNCOMPLICATE D Active 2023-11 00:00: 00 Allergies, Adverse Reactions, Alerts Allergy Name Allergy Type Status Severity Reaction(s) Onset Date Inactive Date Treating Clinician Comments CHOCOLATES Propensity to adverse reactions Active 2023-11 07:19: 48 DOGS AND CATS Propensity to adverse reactions Active 2023-11 07:20: 19 GLUTEN Propensity to adverse reactions Active 2023-11 07:20: 33 INTOLERANT LACTOSE Propensity to adverse reactions Active 2023-11 07:20: 58 Vital Signs Vital Name Observation Time Observation Value Commen ts BMI (%) 2024-10-23 07:04:50.000 32 kg/m2 Height 2024-10-21 16:26:00.000 62 [in_us] Pulse 2024-10-21 16:26:00.000 86 /min O2 Saturation (%) 2024-10-21 16:28:00.000 96 % Respirations 2024-10-21 16:26:00.000 20 /min Weight (lbs) 2024-10-23 07:04:50.000 180 [lb_av] Systolic Blood Pressure 2024-10-21 16:26:00.000 122 mm [Hg] Diastolic Blood Pressure 2024-10-21 16:26:00.000 74 mm [Hg] Plan of Treatment Planned Activity Planned Date Details Comments Future Scheduled Test SKILLED NU RSE TO EVALUATE PATIENT, IDENTIFY PRIMARY AND CO-MORBID CONDITIONS CODED PER CODING GUIDELINES, AND DEVELOP PATIENT SPECIFIC PLAN OF CARE THAT INCLUDES PATIENT GOAL FOR HOME HEALTH. [code = SKILLED NURSE TO EVALUATE PATIENT, IDENTIFY PRIMARY AND CO-MORBID CONDITIONS CODED PER CODING GUIDELINES, AND DEVELOP PATIENT SPECIFIC PLAN OF CARE THAT INCLUDES PATIENT GOAL FOR HOME HEALTH.] Future Scheduled Test SKILLED NU RSE WILL MAINTAIN SITUATIONAL AWARENESS FOR SAFETY AND WILL NOTIFY CLINICAL BAND AND CUFF CUTTER AND PHYSICIAN/PROVIDER WITH ANY CHANGE IN CONDITION. [code = SKILLED NURSE WILL MAINTAIN SITUATIONAL AWARENESS FOR SAFETY AND WILL NOTIFY CLINICAL BAND AND CUFF CUTTER AND PHYSICIAN/PROVIDER WITH ANY CHANGE IN CONDITION.] Future Scheduled Test SKILLED NU RSE TO O/A OF PATIENTS MENTAL/BEHAVIORAL STATUS, ASSESS VITAL SIGNS 3WK8 ALLOW 2 PRNS FOR MEDICATION MANAGEMENT. [code = SKILLED NURSE TO O/A OF PATIENTS MENTAL/BEHAVIORAL STATUS, ASSESS VITAL SIGNS 3WK8 ALLOW 2 PRNS FOR MEDICATION MANAGEMENT.] Future Scheduled Test SKILLED NU RSE TO ASSESS HIGH RISK PATIENT FOR CHANGE IN CONDITION: MOOD/BEHAVIOR, MISSED MEDICATIONS, CHANGE IN LIVING SITUATION, HOMICIDAL IDEATION, ACTIVE SUBSTANCE USE WITH MOOD ALTERING SUBSTANCES INCLUDING BUT NOT LIMITED TO COCAINE, CRACK, HEROIN, FENTANYL AND ENSURE EARLY IDENTIFICATION TO MAINTAIN SAFETY. SKILLED NURSE WILL MAINTAIN SITUATIONAL AWARENESS FOR SAFETY AND WILL NOTIFY CLINICAL BAND AND CUFF CUTTER AND PHYSICIAN/PROVIDER WITH ANY CHANGE IN CONDITION. [code = SKILLED NURSE TO ASSESS HIGH RISK PATIENT FOR CHANGE IN CONDITION: MOOD/BEHAVIOR, MISSED MEDICATIONS, CHANGE IN LIVING SITUATION, HOMICIDAL IDEATION, ACTIVE SUBSTANCE USE WITH MOOD ALTERING SUBSTANCES INCLUDING BUT NOT LIMITED TO COCAINE, CRACK, HEROIN, FENTANYL AND ENSURE EARLY IDENTIFICATION TO MAINTAIN SAFETY. SKILLED NURSE WILL MAINTAIN SITUATIONAL AWARENESS FOR SAFETY AND WILL NOTIFY CLINICAL BAND AND CUFF CUTTER AND PHYSICIAN/PROVIDER WITH ANY CHANGE IN CONDITION.] Future Scheduled Test SKILLED NU RSE TO REVIEW PATIENT MEDICATIONS. INSTRUCT PATIENT/CAREGIVER ON MONITORING OF EFFECTIVENESS, ADVERSE DRUG REACTIONS, SIDE EFFECTS OF ALL MEDICATIONS (PRESCRIPTION/-OTC), AND HOW AND WHEN TO REPORT PROBLEMS. [code = SKILLED NURSE TO REVIEW PATIENT MEDICATIONS. INSTRUCT PATIENT/CAREGIVER ON MONITORING OF EFFECTIVENESS, ADVERSE DRUG REACTIONS, SIDE EFFECTS OF ALL MEDICATIONS (PRESCRIPTION/-OTC), AND HOW AND WHEN TO REPORT PROBLEMS.] Future Scheduled Test SKILLED NU RSE TO PRE-POUR MEDICATION PER MEDICATION LIST 1WK8 [code = SKILLED NURSE TO PRE-POUR MEDICATION PER MEDICATION LIST 1WK8] Future Scheduled Test SKILLED NU RSE TO ASSESS PATIENTS PSYCHOSOCIAL STATUS TO IDENTIFY POTENTIAL ISSUES THAT MAY COMPLICATE THE PROVISION OF THE PLAN OF CARE INCLUDING THE PATIENTS ABILITY TO ACCESS COMMUNITY RESOURCES AND PSYCHOSOCIAL SUPPORT SERVICES. [code = SKILLED NURSE TO ASSESS PATIENTS PSYCHOSOCIAL STATUS TO IDENTIFY POTENTIAL ISSUES THAT MAY COMPLICATE THE PROVISION OF THE PLAN OF CARE INCLUDING THE PATIENTS ABILITY TO ACCESS COMMUNITY RESOURCES AND PSYCHOSOCIAL SUPPORT SERVICES.] Goal Patient Goal - TO GET BETTER Goal Provider Goal - A PLAN OF CARE WILL BE ESTABLISHED THAT MEETS PATIENT'S HALF-WAY NEEDS AND INCLUDES PATIENT GOAL FOR HOME HEALTH. Goal Provider Goal - PATIENT WILL REMAIN SAFE IN THE COMMUNITY AND WILL BE FREE OF DANGER TO SELF AND OTHERS THROUGHOUT THE CERTIFICATION PERIOD. Goal Provider Goal - ALTERED MENTAL/BEHAVIORAL STATUS WILL BE IDENTIFIED PROMPTLY AND INTERVENTION INITIATED QUICKLY TO MINIMIZE ASSOCIATED RISKS THROUGHOUT CERTIFICATION PERIOD. Goal Provider Goal - HIGH RISK PATIENT WILL REMAIN SAFE IN THE COMMUNITY AND WILL BE FREE FROM DANGER TO SELF AND OTHERS THROUGHOUT CERTIFICATION PERIOD. Goal Provider Goal - PATIENT/CAREGIVER WILL VERBALIZE UNDERSTANDING OF EDUCATION PROVIDED ON MEDICATIONS BY THE END OF THE CERTIFICATION PERIOD. Goal Provider Goal - PATIENT WILL COMPLY WITH MEDICATION WHEN SKILLED NURSE PRE-POURS MEDICATION THROUGHOUT CERTIFICATION PERIOD. Goal Provider Goal - PSYCHOSOCIAL NEEDS WILL BE IDENTIFIED AND PLAN IMPLEMENTED TO MINIMIZE RISK THROUGHOUT CERTIFICATION PERIOD. Progress Notes Progress Notes <paragraph>[Visit Date: 2023 by MICHAEL SANCHEZ RN]:</paragraph><paragraph>PATIENT IS A 64 YO SINGLE FEMALE THAT LIVES ALONE IN AN APARTMENT IN [place]. SHE IS BEING SEEN TODAY FOR SOC. SHE WAS ADMITTED TO [facility] ICU ON 10/06 D/T ALTERED MENTAL STATUS AND HYPOTENSION. SHE WAS FOUND ON THE FLOOR UNRESPONSIVE BY HER NEWSPAPER PHOTOGRAPHER. SHE REPORTS TO THAT SHE TOOK EXTRA OF HER TOPIRIMATE BECAUSE SHE WANTED TO LOSE WEIGHT QUICKLY. HER COMORBITITIES INCLUDE BIPOLAR, MOOD DISORDER, DOUG, ANXIETY, DEPRESSION, COPD WITH EMPHYSEMA, DVT (LLE), HX ALCOHOL ABUSE, CLAUSTROPHOBIA, HX SUBSTANCE ABUSE, HTN, INSOMNIA, PARKINSONS DISEASE, AND SEIZURE DISORDER. SHE IS AO X4 AND GUARDED. SHE DENIES SI/HI/AVH. SHE IS EASILY DISTRACTED AND TANGENTIAL T/O ASSESMENT AND EDUCATION PROCESS. SHE REQUIRED REDIRECTION FREQUENTLY. SHE REPORTS PARANOIA, STATES HER NEWSPAPER PHOTOGRAPHER STOLE MONEY AND MEDICATIONS, THAT HER FRIEND WHOM WAS PRESENT FOR A SHORT TIME WHILE PATIENT WAS GIVING HER ITEMS FROM HER HOME. SHE THEN STATED AFTER FRIEND LEFT THAT SHE STEALS FROM HER. SHE STATED THAT A NEIGHBOR OUTSIDE HAS A GUN AND IS BOTHERING HER. DURING QUESTIONING ABOUT WEAPONS SHE PULLED A KITCHEN KNIFE OUT FROM BEHIND HER BACK HIDDEN IN HER DESK CHAIR. SHE STATES SHE HAS IT TO PROTECT HERSELF FROM SAID NEIGHBOR. SHE WAS NOT AGGRESSIVE AND PUT KNIFE AWAY UPON REQUEST. SHE WAS HIDING IN CORNER PEEKING OUT WINDOW WHILE SMOKING VAPE STATING THAT THE HOUSING OFFICE IS WATCHING HER. SN REVIEWED DISCHARGE INSTRUCTIONS WITH HER. SHE PULLED OUT MULTIPLE RECEPTACLES FULL OF MEDICATIONS CURRENT AND DISCONTINUED. DISCHARGE MEDICATION INSTRUCTIONS REVIEWED WITH HER WITH NOTED MEDICATION CONFUSION. MEDICATIONS WERE PP THROUGH NEXT VISIT PER HER DISCHARGE PAPERWORK. SHE WAS GIVEN A MEDICATION LOCKBOX WITH AGREEMENT. DISCONTINUED MEDICATIONS WERE TAKEN FOR DISPOSAL PER HER REQUEST AND FOR SAFETY. SHE STATES SHE HAD A NEURO APPT THIS WEEK WITH NO CHANGES. SHE HAS AN APPT WITH DR. TAN PCP AND HER THERAPIST ON SATURDAY. CALL WAS PLACED TO PCP AT TIME OF VISIT TO RECONCILE MEDICATION LIST. RETURN CALL PENDING. VITAL SIGNS WERE IN ACCEPTABLE RANGE. SHE WAS EDUCATED ON SX OF HYPOTENSION TO REPORT AND CRISIS OUTREACH. SHE VERBALIZED PARTIAL UNDERSTANDING OF TEACHING. SHE WILL BE SEEN 3X/WK D/T HER NEED FOR DISEASE MONITORING, MEDICATION MANAGEMENT, AND D/T HER RISK OF DECOMPENSATION AND REHOSPITALIZATION.</paragraph> Encounters Start Date/Time End Date/Time Encounter Type Admission Type Attending [facility] Care Facility Care Department Encounter ID Discharge Date Discharge Status Discharge Condition Discharge Reason Percent Goals Met 2024-10-21 00:00:00 2024-12-19 00:00:00 Outpatient NEW ADMISSION MICHAEL SANCHEZ [facility] [id number] 20.00
--- OUTSIDE RECORDS SUMMARY | 2024-10-27 16:15 | XMS_ITS | Continuity of Care Document ---
Author Organization [facility] ter Address [address] [place] [id number]- Care Team Providers Care Technical Testing Engineer Name Role Phone Stefanie Mcgee Primary Care Physician [place] [facility] [place] 10/06/24 - 10/18/[address] [id number] Encounter Diagnosis Hypotension(Final) - 10/06/24 Discharge Disposition: A-D/C Home Attending Physician: Wen Page MD Admitting Physician: Anand Love DO Referring Physician: Not on Staff, Referring MD Encounter Type: Disch IP Allergies, Adverse Reactions, Alerts Substance Criticality Severity Reaction Reaction Severity Status Cats 1 Active Chocolate 2 Active Dogs 3 Active Glutens 4 Active Lactose 5 Active 1CAT dander allergy , mild 2Gives her a migraine -per pt report 3dog dander allergy, mild , hay fever 4celiac - per pt report 5pt reports gives her diarrhea Immunizations Given and Recorded Vaccine Date Status [...] Recorded hepatitis B adult vaccine 08/23/08 Recorded Problem List Condition Confirmation Course Effective Dates Status H ealth Status Informant Memory loss Confirmed Active Anxiety Confirmed Active Bipolar disorder Confirmed Active Cervical disc disease Confirmed Active Chronic pain of left wrist Confirmed Active Vitamin B12 deficiency Confirmed Active Deep vein thrombosis (DVT) of left lower extremity 1 Confirmed Active Depression 2 Confirmed Active Lumbar disc disease Confirmed Active Generalized arthritis Confirmed Active History of claustrophobia Confirmed Active History of alcohol abuse Confirmed Active History of substance abuse Confirmed Active HTN (hypertension) Confirmed Active Insomnia Confirmed Active Macrocytic anemia with vitamin B12 deficiency Confirmed Active Microcytic anemia Confirmed Active Anxiety and depression Confirmed Active Mood disorder Confirmed Active Nasal congestion Confirmed Active Obese class I Confirmed Active Parkinson's disease Confirmed Active Encounter to establish care Confirmed Active COPD with emphysema Confirmed Active Seasonal allergies Confirmed Active Seizure disorder Confirmed Active 1Femoral vein of left lower extremity 2Bipolar depression Results Radiology Reports * Exam Date Time Procedure Performing Provider Status 10/15/24 1:29 PM MRI Brain W/O Contrast Tomeka Curtis [facility] (Verified) Notes: (MRI Brain W/O Contrast) Reason For Exam: Behavior Problem RESULT: MRI Brain W/O Contrast MRI Brain W/O Contrast INDICATION / CLINICAL QUESTION: Behavior Problem; Clinical Question(s): Infarction; Order Comment: Please see Reference Text for complete list of contraindications Infarction TECHNIQUE: Sagittal T1, axial T2, axial FLAIR, axial gradient echo weighted images and axial diffusion weighted images. COMPARISON: 10/06/2024 FINDINGS: The ventricles, cistern and sulci are diffusely prominent, consistent with generalized age-related atrophy. There is no intracranial hemorrhage, tumor or acute infarct. Small areas of hyperintense T2and FLAIR signals are seen in the periventricular and subcortical white matters bilaterally as wellas central zaki, which are nonspecific but may represent chronic small vessels ischemic disease. Please correlate clinically. There are normal flow voids within the major intracranial vessels. Mild mucosal thickening is seen within the ethmoid, the right sphenoid and maxillary sinuses. Smallmucus retention cysts are seen in the maxillary sinuses bilaterally. The left left mastoid air cells are partially opacified. IMPRESSION: No acute pathology is seen in the brain parenchyma. Chronic findings as described above. WSN: [id number] Ordering Physician: Wen Page Dictated By: Michael Aggarwal MD Dictated Date/Time: 10/15/24 2:01 pm Reviewed By: Michael Aggarwal MD Signed By: Michael Aggarwal MD Signed Date/Time: 10/15/24 2:01 pm Transcribed By: FERNIE Transcribed Date/Time: 10/15/24 1:57 pm * Exam Date Time Procedure Performing Provider Status 10/11/24 1:55 PM US Liver Supriya Emerson; Auth ( Verified) Notes: (US Liver) Reason For Exam: transaminitis, former alcoholic;Other: RESULT: US Liver US Liver INDICATION: transaminitis, former alcoholic; Clinical Question(s): Cirrhosis COMPARISON: CT 10/07/2024 IMAGING TECHNIQUE: Grayscale and color Doppler ultrasound examination of the liver. FINDINGS: Liver: Coarse hepatic echotexture. No suspicious lesion. Smooth hepatic contour. Main portal vein patent with normal hepatopetal direction of flow. Biliary Tree: No intrahepatic bile duct dilation is identified. Common duct: 0.9 cm. IMPRESSION: 1. Coarse hepatic echotexture likely due to underlying hepatocellular disease. No suspicious lesion. 2. Mildly dilated common bile duct. No obstructing lesion identified but the distal duct is obscured. Recommend correlation with LFTs. If concern for obstruction, consider MRCP or ERCP. WSN: [id number] Ordering Physician: Lolis Salmeron Dictated By: Nickolas Ledbetter MD Dictated Date/Time: 10/11/24 2:02 pm Reviewed By: Nickolas Ledbetter MD Signed By: Nickolas Ledbetter MD Signed Date/Time: 10/11/24 2:02 pm Transcribed By: FERNIE Transcribed Date/Time: 10/11/24 2:00 pm * Exam Date Time Procedure Performing Provider Status 10/07/24 10:[address] Abdomen and Pelvi s W/O Contrast Daphne Dockery; Jamaal (Verified) Notes: (CT Abdomen and Pelvis W/O Contrast) Reason For Exam: Severe DOUG, Sepsis;Other: RESULT: CT Abdomen and Pelvis W/O Contrast CT Abdomen and Pelvis W/O Contrast Reason: Other:; Severe DOUG, Sepsis; Clinical Question(s): Obstruction; Order Comment: TECHNIQUE: Spiral CT through the abdomen and pelvis without IV contrast formatted in 3 planes. Thisstudy was performed without oral contrast. Weight- based protocol using automatic tube modulation was used to optimize exposure parameters. CTDIvol Body: 18.00 mGy, DLP Body: 1046 mGy*cm. COMPARISON: None. FINDINGS: Hub Cutter Apprentice View Findings, Lines and Tubes: None. Visualized Chest: Very mild airspace opacities in the right greater than left lung bases. Subclavian and the distal right lower lobe bronchi. No pleural effusion. The heart is normal in size. No pericardial effusion. Diaphragm: Normal. Liver: Normal. Gallbladder: No CT evidence of gallbladder pathology. Bile ducts: No biliary ductal dilation. Spleen: Normal. Pancreas: Severe atrophy. Adrenal glands: Normal. Kidneys and ureters: Moderate bilateral perinephric stranding. No hydronephrosis or noncontrast evidence of suspicious masses. Punctate cortical calcification in the right anterior midpole (201:72). Bladder: Contains a Garcia catheter and gas within the lumen. Questionable mild bladder wall thickening. Reproductive organs: Unremarkable. Stomach, small bowel, and large bowel: A few borderline distended loops of small bowel measuring upto 2.9 cm (201:87) without discrete transition point to suggest obstruction. No abnormal bowel thickening. Appendix: Normal. Peritoneum and retroperitoneum: Trace free fluid in the pelvis. No omental or mesenteric lesions. Lymph nodes: No enlarged lymph nodes. Blood vessels: Moderate atherosclerotic vascular calcification. No aortic aneurysm. Abdominal and pelvic wall: Tiny fat-containing obliquity. Bones: No acute abnormality. IMPRESSION: No hydronephrosis or obstructing renal stone. Moderate bilateral perinephric stranding is nonspecific. Bladder contains a Garcia catheter. Its wall measuring be circumferentially thickened. Please correlate with any recent urinalysis and urine culture. Mild dependent airspace opacities in the right greater than left lung bases due to atelectasis or aspiration. WSN: [id number] Ordering Physician: Araceli Castelan Dictated By: Nickolas Lang MD Dictated Date/Time: 10/07/24 11:38 a Reviewed By: Nickolas Lang MD Signed By: Nickolas Lang MD Signed Date/Time: 10/07/24 11:38 am Transcribed By: FERNIE Transcribed Date/Time: 10/07/24 11:30 am * Exam Date Time Procedure Performing Provider Status 10/06/24 1:[address] Cervical Spine W/O Contrast Jesica Estrella; Jamaal (Verified) Notes: (CT Cervical Spine W/O Contrast) Reason For Exam: Neck trauma, dangerous injury mechanism;Other: RESULT: CT Cervical Spine W/O Contrast Examination: Noncontrast head CT and noncontrast CT of the cervical spine performed on 10/06/2024. History: Trauma. Technique and findings: Noncontrast head CT: Contiguous 5 mm axial images were obtained from the skull base to the vertex without intravenous contrast. A dose modulated weight-based protocol was used. There are no prior similar studies currently available for direct comparison. The visualized sinuses are free from disease. The ventricular system and subarachnoid spaces are within normal limits. There is no intracranial hemorrhage, mass effect, or midline shift. No intra- or extra-axial fluid collections are identified. The osseous structures are unremarkable. Noncontrast CT of the cervical spine: Contiguous axial images were obtained from the skull base through the thoracic inlet without intravenous contrast. Sagittal and coronal reformatted images are provided. A dose modulated weight-based protocol was used. No fractures are demonstrated. There is no malalignment. There is no traumatic disc herniation or epidural hematoma. Air is demonstrated throughout the veins which may be related to IV catheter placement. The lung apices are unremarkable. IMPRESSION: There is no acute intracranial abnormality. There is no acute osseous abnormality within the cervical spine. WSN: [id number] Ordering Physician: Sena Bartholomew Dictated By: Teresita Sarah MD Dictated Date/Time: 10/06/24 1:53 pm Reviewed By: Teresita Sarah MD Signed By: Teresita Sarah MD Signed Date/Time: 10/06/24 1:53 pm Transcribed By: FERNIE Transcribed Date/Time: 10/06/24 1:49 pm * Exam Date Time Procedure Performing Provider Status 10/06/24 1:[address] Head/Brain W/O Contrast Carlota Ortega (Verified) Notes: (CT Head/Brain W/O Contrast) Reason For Exam: Trauma RESULT: CT Head/Brain W/O Contrast Examination: Noncontrast head CT and noncontrast CT of the cervical spine performed on 10/06/2024. History: Trauma. Technique and findings: Noncontrast head CT: Contiguous 5 mm axial images were obtained from the skull base to the vertex without intravenous contrast. A dose modulated weight-based protocol was used. There are no prior similar studies currently available for direct comparison. The visualized sinuses are free from disease. The ventricular system and subarachnoid spaces are within normal limits. There is no intracranial hemorrhage, mass effect, or midline shift. No intra- or extra-axial fluid collections are identified. The osseous structures are unremarkable. Noncontrast CT of the cervical spine: Contiguous axial images were obtained from the skull base through the thoracic inlet without intravenous contrast. Sagittal and coronal reformatted images are provided. A dose modulated weight-based protocol was used. No fractures are demonstrated. There is no malalignment. There is no traumatic disc herniation or epidural hematoma. Air is demonstrated throughout the veins which may be related to IV catheter placement. The lung apices are unremarkable. IMPRESSION: There is no acute intracranial abnormality. There is no acute osseous abnormality within the cervical spine. WSN: [id number] Ordering Physician: Sena Bartholomew Dictated By: Teresita Sarah MD Dictated Date/Time: 10/06/24 1:53 pm Reviewed By: Teresita Sarah MD Signed By: Teresita Sarah MD Signed Date/Time: 10/06/24 1:53 pm Transcribed By: FERNIE Transcribed Date/Time: 10/06/24 1:49 pm * Exam Date Time Procedure Performing Provider Status 10/06/24 12:25 PM Chest Portable Alireza Cardona (Verified) Notes: (Chest Portable) Reason For Exam: Cough RESULT: Chest Portable Chest Portable Reason: Cough; Clinical Question(s): Pneumonia COMPARISON: None. FINDINGS: LINES AND TUBES: None. LUNGS AND PLEURA: There are bibasilar opacities suggestive of likely atelectasis in the setting of low lung volumes. No pleural effusion. No pneumothorax. HEART, MEDIASTINUM AND MELISSA: Heart is normal in size. Mild aortic calcification BONES AND SOFT TISSUES: No acute abnormality. IMPRESSION: There are bibasilar opacities suggestive of likely atelectasis in the setting of low lung volumes. Underlying left basilar infection cannot be entirely excluded. WSN: [id number] Ordering Physician: Sena Bartholomew Dictated By: Cesia Scott MD Dictated Date/Time: 10/06/24 12:29 p Reviewed By: Cesia Scott MD Signed By: Cesia Scott MD Signed Date/Time: 10/06/24 12:29 pm Transcribed By: FERNIE Transcribed Date/Time: 10/06/24 12:28 pm Vital Signs Most recent to oldest [Reference Range]: 1 2 3 Height 158 cm (10/18/24 8:14 AM) 158 cm (10/17/24 8:11 PM) 158 cm (10/17/24 12:18 AM) Weight 86.9 kg (10/06/24 10:55 PM) 86.9 kg (10/06/24 8:17 PM) Oxygen Saturation [94-100 %] 100 % (10/18/24 12:00 PM) 98 % (10/18/24 8:14 AM) 100 % (10/17/24 8:11 PM) Pulse Rate [55-90 bpm] 81 bpm (10/18/24 12:00 PM) 73 bpm (10/18/24 8:14 AM) 87 bpm (10/17/24 8:11 PM) Body Mass Index [18.5-24.99 kg/m2] 34.81 kg/m2 *>HHI* (10/06/24 8:17 PM) Blood Pressure [90-138/55-84 mm Hg] 140/72mm Hg *H* (10/18/24 12:00 PM) 148/73mm Hg *H* (10/18/24 8:47 AM) 133/71mm Hg (10/18/24 8:14 AM) Respiratory Rate [16-30 br/min] 18 br/min (10/18/24 12:00 PM) 18 br/min (10/18/24 8:14 AM) 18 br/min (10/17/24 10:58 PM) Temperature [96.8-100.4 DegF] 97.6 DegF (10/18/24 12:00 PM) 98.2 DegF (10/18/24 8:14 AM) 98.0 DegF (10/17/24 8:11 PM) Mode of Delivery (Oxygen) Room air (10/18/24 12:00 PM) Room air (10/18/24 8:14 AM) Room air (10/17/24 8:11 PM) Blood pressure sites Arm, left (10/18/24 12:00 PM) Arm, left (10/18/24 8:14 AM) Arm, left (10/17/24 8:11 PM) Temperature Route Oral (10/18/24 12:00 PM) Oral (10/18/24 8:14 AM) Oral (10/17/24 8:11 PM) Dry Weight 86.9 kg (10/06/24 8:17 PM) Social History Social History Type Response Smoking Status Former smoker, quit more than 30 days ago; Other: quit 8 month ago; entered on: 10/11/21 Sex Sex Representation Female (finding) Consult note * Sigifredo RODRIGUEZ, Teri Bess: PERFORM Event Display: Consultation Note Authored Date: [id number] Patient: ??ASHLY COSTA ? Age:??64 Years?Sex:??Female?:??1960?? psych requested neurology involvement for polypharmacy/medication overdose/overuse/antiepileptic meds ?? I reviewed the chart of Ashly Costa with Dr. rBidges- she may state to providers??she has seizure but she has no diagnostic evidence of it nor is she on medications at the proper doses to treat seizures. primdone (from Dr. Gaytan) dose is for tremor, gabapentin is not at AED dose, clonazepam dosenot appear to be for seizures but if she is overusing medications outside of the hospital this should likely not be prescribed to her. topamax is likely being used to treat SUNG (one scanned neuro notefrom 2014 from outside neurologist) but this polypharmacy is not due to treating seizures nor are they prescribed by [facility] neurology so we unfortunately do not have anything to offer in this case at this time. It does not appear that seizures are an active problem at the moment and if she warrants further work up for it??our outpatient office would need all prior records to review prior to her seeing them. ?? Please let neurology know if we can be of further assistance. ?? Karla Mei SEARCH ENGINE MARKETING STRATEGIST Neuro * Antonio Tolentino DO: PERFORM, MODIFY, MODIFY, MODIFY, MODIFY Event Display: Consultation Note Authored Date: Patient: ??ASHLY COSTA ? Age:??64 Years?Sex:??Female?:??1960?? Chief Complaint pt coming from home pt was found on the floor by her FUR POINTER confused, pt now a/ox4 lethargic, arousbale to verbal stimuli, question of being over medicated hx of seizures per EMS History of Present Illness Referring Provider:??Dr. Serrano Consulting psychiatrist:??Cris More MD; Antonio Tolentino DO ?? Identifying information:?? Reason for hospitalization, medical diagnosis: Altered mental status, hypotension Psychiatry was consulted for: Possible??paranoia, bizarre behavior ?? Ashly Costa is a 64-year-old female??with past psychiatric history of depression and anxiety,??and??PMH of COPD, DVT (not on anticoagulation), HTN, seizures, and??remote history of??polysubstance abuse,??who??presented to the ED on 10/06 for evaluation of altered mental status. In the ED, she was found to be hypotensive, hypothermic, and??lethargic.?ED documentation states that her VNA found her??unconscious, and upon EMS arrival, patient was found to be hypotensive in the 90s??systolic; she was??given fluids and was brought to the ED??where hypotension persisted.?? Upon finding that she was also hypothermic, patient was admitted to the [facility] service??for??workup of??hypovolemic sh ock, possible toxic metabolic encephalopathy, and??DOUG??(creatinine??elevated at??3.14).?Patientnoted to be quite??combative and agitated, uncooperative. ??As of 10/07, her mentation had improved??and she was conversant, and reportedly apologetic about her behavior.?? However, due to??reports of bizarre behavior, paranoia, and possible delusions, psychiatry was consulted??for diagnostic clarification??and medication management. ?? On our visit, patient was found??laying comfortably in bed,??and right after we introduced ourselves that she??responded sharply, you are not my real doctor. ?? She repeated this refrain several times??even??despite our attempts to clarify what she was saying. ??Patient's chin noted to be trembling throughout encounter.?? She denied having Parkinson's or any history of psychotic illnesses such as schizophrenia, and stated, people keep making him crazy. ?? She was fully alert and oriented x 4,however??repeatedly made some bizarre statements??throughout the conversation,??such as??saying that??this senior underwriter was wearing a wig??and that she could see wigs in the corner of the room.?? She also became tearful, saying, they are all picking on me. ??When we asked who was picking on her, she said, behind you all those people. ?? Would note that there was no one standing behind??me. ?? She denied any??suicidal ideations??and was future oriented, saying that her belief in God keeps her going.?? When asked if she??was experiencing any hallucinations, she said??that she had been??seeing things??that were not there??but could not specify exactly what.?? Patient did note??eventually th at??she had??been taking??some of her medications in excess, specifically her topiramate. ??Noted that she??would frequently take??an additional??pill??(according to our math, this would mean that she??frequently takes 600 mg daily instead of 400 mg).?? This was done in an attempt to lose weight.??Other measures to lose weight??over recent weeks included drinking??large amounts of liquid, dieting, etc.?? When we asked if she takes desvenlafaxine as noted on her external Rx fill history,??she seemed to deny??it, saying that??she mostly only takes her topiramate, primidone, and gabapentin.?? Later in the conversation, her phone rang??and this senior underwriter answered;??it was her??CAR SEAT UPHOLSTERER who was callingto ask how long the patient would be in the hospital since the CAR SEAT UPHOLSTERER is taking care of her dogs.?? Our attempts to get more history??were only partially successful:??The CAR SEAT UPHOLSTERER??Lydia stated that??when she found Diana,??she was?? blue ??and Lydia believed that she may have passed, and was relieved to see that she was alive.?? Stated that she had noticed some bizarre behavior lately, i.e.??she had called??the patient??1 day??and found her crying hysterically due to back pain,??and then called back 15 minutes later??and found her??completely??normal. ?? We were unable to gather additional history, including diagnostic history or medication??history, due to the patient's ?? Past Psychiatric History?? Previous diagnoses: reports only a hx of PTSD, denies any psychotic illnesses, denies any affectiveillnesses such as depression or anxiety despite those diagnoses being in her chart Past hospitalizations: unknown Medication trials:??Recent fill history reveals desvenlafaxine, amitriptyline, clonazepam, gabapentin, zolpidem,??topiramate, primidone. ??Patient states??she mostly only takes topiramate and primidone. Past outpatient providers:??Unclear Past suicide attempts:??Denies ?? Family Psychiatric History Unable to ascertain ?? Substance Use History?? States that she has a history of using crack cocaine in the remote past, states that she has been sober for??at least 10 years now??and shows us??a sobriety coin.?? Denies any recent alcohol, cannabis, or other substance use. Review of Systems Pertinent positives as listed above in HPI. ??Otherwise, remainder of review of systems negative. Mental Status Vitals & Measurements T:??98.0?F?? TMIN:??97.5?F?? TMAX:??98.6?F?? HR:??71??(Peripheral)?? RR:??16?? BP:??164/96?? SpO2:??96%?? Mental Status Exam Appearance: This is a female dressed in hospital gown,??poor dentition,??in moderate distress, appears stated age Eye contact: Avoidant Attitude: Irritable,??guarded Motor Activity:??Patient's chin??and??her??right foot??notably tremulous??intermittently Mood: Fine Affect: Dysphoric Speech: Hyperverbal, diminished tone, diminished prosody, somewhat difficult to understand??possibly due to lack of dentition Perception: Questionably internally preoccupied,??reports??visual hallucinations, reports??belief that we are not real doctors, unclear if this is cognitive rigidity??or genuine??delusion Orientation: Fully oriented to person, place,??current events,??and date Memory: Unclear, possibly impaired Thought Process: Occasionally disorganized??and tangential,??redirectable, linear when redirected Thought Content:??Themes of??persecution,??paranoia Insight: impaired Judgment: impaired?? Suicidality/Self-destructive Behavior: denies SI/SIB Homicidality/Violence: denies ?? MSK Exam:??able to move all 4 extremities spontaneously. No rigidity noted.?? Given Suicide Score Given Suicide Assessment Ca (10/06/24) Suicidal Thoughts Past Month - CSSRS: No (10/06/24) Suicide Behavior Lifetime - CSSRS: No (10/06/24) Wish to be Past Month - CSSRS: No (10/06/24) Assessment/Plan In brief, Ashly??is a??64-year-old female??with past psychiatric history of depression and anxiety,??and??PMH of COPD, DVT (not on anticoagulation), HTN, seizures, and??remote history of??polysubstance abuse,??who??presented to the ED on 10/06 for evaluation of altered mental status. ??Course wascomplicated by hypotension, hypothermia, and??lethargy??which were concerning initially for??encephalopathy. ??However she recovered quickly??and began to??behave in a bizarre and disorganized fashion, and reportedly expressed delusions and paranoia, prompting??psychiatric consultation. On our evaluation, patient was found to be??somewhat disorganized??with regards to thought process.?? Her presentation??is unlikely to be a decompensation of a pre-existing??primary psychiatric illness, as she has no history of the same, and is??endorsing visual hallucinations which are exceedinglyrare??in??textbook psychosis.?? Given history of??overuse of certain medications such as topiramate, as well as recent history of??profound medical illness??(significant DOUG??which is improving,??hypotension??in the setting of hypovolemic shock,??hypothermia),??her symptoms are more concerning for??a neurologic etiology??such as delirium. ??Entirely possible that??her decreased renal clearance asa result of??a prerenal DOUG??was causing??an accumulation of??her home medications.?? As such,??we agree with??primary team??decision to hold??most of her psychiatric medications for now.?? It appears that she was started on CIWA, possibly for??concern??about withdrawal??as she tested positive for barbiturates on??UDS; however this is likely??a result of her??home primidone use, so would defer toprimary team??regarding??continuation/discontinuation of CIWA.?? Otherwise??would consider??obtaining neurology input??given history of seizures??and??recent overuse of??antiepileptic medications such as??topiramate and??primidone.?? We are more than happy to continue to follow, including to help reinitiate psychiatric meds upon medical clearance. ?? DSM-V Diagnoses: -Delirium -Depression, by history -Anxiety, by history -PTSD, by history -Remote history of substance use disorder (stimulants and alcohol),??reportedly in remission ?? Recommendations: -??We agree with holding psych meds for now, would defer to primary team about continuing CIWA. - Given ongoing seizure med utilization, possibly in excess, would strongly consider neurology input, especially given concerns for seizures as documented in the ED note. - Please continue to adhere to delirium precautions as noted below: ??Delirium Prevention Strategies: -Lights on, shades up during the day; lights off, shades drawn at night -Minimize nighttime disruptions -Help keep patient awake and engaged during the day -Maximize access to glasses/hearing aids -Avoid benzodiazepines, anticholinergic medications - We can continue to follow along with you, and can help re-initiate psych meds when she is medically cleared. ?? Thank you for allowing us to participate in this patient's care. We will continue to follow the patient as needed by the primary team. Please feel free to contact the Psychiatry consult service (pager [phone]) with any questions or concerns.? Recommendations conveyed to ??Maggie via [employer]. ?? Case and plan discussed with attending physician, ??Derik. ?? Antonio Tolentino, DO PGY-2 Pager #[phone] Problem List/Past Medical History Ongoing Anxiety Anxiety and depression Bipolar disorder Cervical disc disease Chronic pain of left wrist COPD with emphysema Deep vein thrombosis (DVT) of left lower extremity Depression Encounter to establish care Generalized arthritis History of alcohol abuse History of claustrophobia History of substance abuse HTN (hypertension) Insomnia Lumbar disc disease Macrocytic anemia with vitamin B12 deficiency Memory loss Microcytic anemia Mood disorder Nasal congestion Obese class I Parkinson's disease Seasonal allergies Seizure disorder Vitamin B12 deficiency Medications Inpatient Acetaminophen Tablet, 650 mg, By Mouth, Every 4 hours, PRN albuterol CFC free 90 mcg/inh inhalation aerosol, 180 mcg= 2 puffs, Inhalation, Every 4 hours, PRN Breo Ellipta 200 mcg-25 mcg Inhaler, 1 puffs, Inhalation, Daily Docusate Sodium Capsule, 100 mg= 1 capsule, By Mouth, 2 times a day, PRN Heparin Inj, 5000 units= 1 mL, Subcutaneous Injection, 3 times a day LR 1,000 mL, 1000 mL, IV Infusion Melatonin Tablet, 3 mg, By Mouth, Daily at bedtime, PRN midodrine 5 mg oral tablet, 10 mg, By Mouth, 3 times a day, PRN MiraLax Powder, 17 Gm= 1 pack/packet, By Mouth, Daily, PRN NaCL 0.9% Flush, 3 mL, IV Push, Every 8 hours NaCL 0.9% Flush, 3 mL, IV Push, Every 8 hours, PRN pantoprazole 20 mg oral delayed release tablet, 20 mg, By Mouth, Daily PHENobarbital 30 mg oral tablet, 30 mg, By Mouth, 3 times a day Senna Tablet, 8.6 mg= 1 tablet, By Mouth, 2 times a day, PRN sodium bicarbonate 650 mg oral tablet, 1300 mg, By Mouth, 2 times a day Spiriva Respimat Inhaler, 2 puffs, Inhalation, Daily Topiramate Tablet, 100 mg, By Mouth, Every 12 hours Vitamin D3 1000 intl units oral tablet, 2000 International_Units, By Mouth, Daily Home acetaminophen 500 mg oral tablet, 500 mg= 1 tablet albuterol (OP) amitriptyline 50 mg oral tablet, 50 mg= 1 tablet, By Mouth, Daily at bedtime Banophen 25 mg oral tablet, 25 mg= 1 tablet, By Mouth, 3 times a day Breo Ellipta 200 mcg-25 mcg/inh inhalation powder, 1 puffs, Inhalation, Daily busPIRone 5 mg oral tablet, 5 mg= 1 tablet, By Mouth, 2 times a day carbidopa-levodopa 25 mg-100 mg oral tablet, disintegrating, 2 tablet, By Mouth, 4 times a day cetirizine 10 mg oral capsule, 10 mg= 1 capsule, By Mouth, Daily clonazePAM 0.5 mg oral tablet, 0.5 mg= 1 tablet, By Mouth, 2 times a day clonazePAM 1 mg oral tablet, See Instructions cyanocobalamin 1000 mcg/ml injectable solution, See Instructions desvenlafaxine 50 mg oral tablet, extended release, 50 mg= 1 tablet, By Mouth, Daily Eliquis 5 mg oral tablet, 5 mg= 1 tablet, By Mouth, 2 times a day Flonase 50 mcg/inh nasal spray, 1 sprays, Nares, Both, 2 times a day Flovent Diskus 100 mcg/inh inhalation powder, 1 puffs, Inhalation, 2 times a day folic acid 1 mg oral tablet, 1 mg= 1 tablet, By Mouth, Daily furosemide 20 mg oral tablet, 20 mg= 1 tablet, By Mouth, Daily gabapentin 300 mg oral capsule, 300 mg= 1 capsule, By Mouth, 3 times a day Incruse Ellipta 62.5 mcg/inh inhalation powder, 1 each, Inhalation, Every 24 hours lisinopril 2.5 mg oral tablet, 2.5 mg= 1 tablet, By Mouth, Daily magnesium gluconate 500 mg oral tablet, 500 mg= 1 tablet, By Mouth, 2 times a day magnesium oxide 400 mg oral tablet omeprazole 20 mg oral enteric coated capsule, 20 mg= 1 capsule, By Mouth, Daily oxybutynin 5 mg/24 hours oral tablet, extended release, 5 mg= 1 tablet, By Mouth, Daily primidone 50 mg oral tablet, 50 mg= 1 tablet, By Mouth, 3 times a day pseudoephedrine 120 mg oral tablet, extended release, 120 mg= 1 tablet, By Mouth, Every 12 hours, PRN topiramate 200 mg oral capsule, extended release, 200 mg= 1 capsule, By Mouth, Daily Vistaril pamoate 25 mg oral capsule, See Instructions, PRN Vitamin D3 2000 intl units oral capsule, 50 mcg= 1 capsule, By Mouth, Daily zolpidem 5 mg oral tablet, 5 mg= 1 tablet, By Mouth, Daily at bedtime, PRN Allergies NKA Social History Alcohol Use: Past. Other: quit 8 years ago. Employment/School Status: Disabled. Exercise Self assessment: Poor condition. Home/Environment Living situation: Home/Independent. Nutrition/Health Diet: Gluten free. Other Name: Family member around, 18 years old mother and daughter.. Sexual Sexually involved in last 6 months: No. Substance Abuse Use: Past. Other: coke, crack, stopped 13 years ago. Tobacco Use: Former smoker, quit more than 30 days ago. Other: quit 8 month ago. Immunizations Vaccine Date Status influenza virus vaccine, inactivated 10/10/2021 Given SARS-CoV-2 (COVID-19) mRNA-1273 vaccine 10/07/2021 Recorded SARS-CoV-2 (COVID-19) mRNA-1273 vaccine 04/06/2021 Recorded tetanus/diphtheria/pertussis, acel(Tdap) 03/19/2021 Recorded SARS-CoV-2 (COVID-19) mRNA-1273 vaccine 03/09/2021 Recorded influenza virus vaccine, inactivated 09/05/2020 Recorded influenza virus vaccine, inactivated 09/07/2019 Recorded influenza virus vaccine, inactivated 08/12/2018 Recorded influenza virus vaccine, inactivated 08/08/2017 Recorded influenza virus vaccine, inactivated 08/17/2016 Recorded tetanus/diphtheria/pertussis, acel(Tdap) 06/25/2016 Recorded influenza virus vaccine, inactivated 10/03/2015 Recorded influenza virus vaccine, inactivated 09/02/2014 Recorded pneumococcal 23-valent vaccine 05/29/2013 Recorded Hepatitis A Adult Vaccine 08/25/2008 Recorded hepatitis B adult vaccine 08/23/2008 Recorded Lab Results Event Name?? Event Result?? Normal Range?? Date/Time?? WBC 6 k/mm3 4 k/mm3 - 11 k/mm3 10/08/24 10:39:00 RBC 3.9 m/mm3??Low 4.2 m/mm3 - 5.4 m/mm3 10/08/24 10:39:00 Hgb 12.6 Gm/dL 11.7 Gm/dL - 15.5 Gm/dL 10/08/24 10:39:00 Hct 37.2 % 35.7 % - 45.8 % 10/08/24 10:39:00 MCV 95.4 femtoliters 80 femtoliters - 100 femtoliters 10/08/24 10:39:00 MCH 32.3 pg 27 pg - 34 pg 10/08/24 10:39:00 MCHC 33.9 Gm/dL 33 Gm/dL - 37 Gm/dL 10/08/24 10:39:00 Platelet Count 218 k/mm3 150 k/mm3 - 460 k/mm3 10/08/24 10:39:00 RDW-SD 48.7 femtoliters??High ?? 10/08/24 10:39:00 MPV 10.3 femtoliters 9.4 femtoliters - 12.4 femtoliters 10/08/24 10:39:00 Nucleated RBC (Automated) 0 #/100 WBC'S ?? 10/08/24 10:39:00 Abs. NRBC 0 k/mm3 ?? 10/08/24 10:39:00 Sodium 145 mmol/L 133 mmol/L - 145 mmol/L 10/08/24 10:39:00 Potassium 4.7 mmol/L 3.6 mmol/L - 5.2 mmol/L 10/08/24 10:39:00 Chloride 113 mmol/L??High 98 mmol/L - 107 mmol/L 10/08/24 10:39:00 Bicarbonate Level 21 mmol/L??Low 22 mmol/L - 29 mmol/L 10/08/24 10:39:00 Anion Gap 11 4 ??- 17 10/08/24 10:39:00 BUN 13 mg/dL 8 mg/dL - 23 mg/dL 10/08/24 10:39:00 Creatinine-Blood 1 mg/dL 0.5 mg/dL - 1 mg/dL 10/08/24 10:39:00 Estimated GFR Creatinine 63 ML/MIN/1.73 M2 ?? 10/08/24 10:39:00 Phosphorus 1.4 mg/dL??Low 2.5 mg/dL - 4.5 mg/dL 10/08/24 10:39:00 Magnesium 1.6 mg/dL 1.6 mg/dL - 2.3 mg/dL 10/08/24 10:39:00 Est Creatinine Clearance 45.37 mL/min ?? 10/08/24 11:32:24 ? * Cris More MD: PERFORM Event Display: Consultation Note Authored Date: I have seen and evaluated this patient on the date of service. ??I have discussed the case and its management with the resident?and primary team as documented in the note on the day of service.??10 point review of systems negative except Pertinent positives as above noted.?I agree with the assessment and plan as documented above.?? * Ros Loya: PERFORM Event Display: Consultation Note Authored Date: Patient: ??ASHLY COSTA ? Age:??64 Years?Sex:??Female?:??1960?? Chief Complaint/Reason for Consultation pt coming from home pt was found on the floor by her FUR POINTER confused, pt now a/ox4 lethargic, arousbale to verbal stimuli, question of being over medicated hx of seizures per EMS Nephrology consulted for DOUG History of Present Illness Ashly Costa is a 64-year-old female??with PMH of COPD; DVT (not on anticoagulation); HTN; seizures; polysubstance abuse??who??presented to the ED on 10/06 for evaluation of altered mental status.? As per history given to the ED by EMS, patient's VNA went to check on the patient and found her on the ground, not responding appropriately to verbal stimuli; EMS arrived on the scene, found patient to be hypotensive with SBP 90s, patient received 500 cc IV fluid bolus; in the ED, found to have BP 100/50s, hypothermic temp 97.6F (lowest temp 94.6 F, on warming blanket), HR 70s, saturating wellon room air.??Subsequently patient became hypotensive with SBP 70s, received additional IV fluid.??CXR showed bibasilar opacities suggestive of likely atelectasis in setting of low lung volumes.??Noncontrast CT brain and cervical spine nonacute. ?? Initial labs showed Na??129, Bicarb 13,??Cr 3.14 mg/dL, BUN 45.??Serum ethanol not detected; serum Tylenol and salicylate levels unremarkable.??U-Tox positive for barbiturates; otherwise negative for? ?cannabinoids/cocaine/benzos/amphetamines/opiates.??COVID-negative ?? Since patient was hypotensive, SBP in 80s-90s, despite 4.5 L IVF, ICU was consulted; recommendedthat since patient has collapsed IVC, more fluid can be given, and appropriate for [facility] admission. Uon admission, pt was combative with staff and threatening to leave AMA for which she was deemed not to have capacity and Section 12 order placed. Nephrology consulted for DOUG.? Upon visit w/ pt, in good spirits. Unsure why she was brought to the hospital. States she had not been feeling good the past few days however didn't want to go to the hospital because she knew they were busy and didn't want to take up their time. States she has been drinking plenty of water and soda recently, however has not been eating much. Reports she has had ongoing diarrhea for the last 2weeks, averaging 2-3 episodes a day. Denies vomiting. Denies symptoms of urinary retention/obstruction. Denies chest pain, SOB, nausea, abdominal pain, fevers, chills. Reports she has some lower extremity swelling.?? Review of Systems As mentioned in HPI, otherwise negative?? Objective Vital Signs?? Temperature: 97.5 DegF (10/07/24 12:02:00) Temperature Route: Core Bladder (10/07/24 12:02:00) Normothermic Measures: Danielle hugger (10/06/24 15:47:00) Pulse Rate: 68 bpm (10/07/24 12:02:00) Heart Rate Monitored: 67 bpm (10/07/24 09:49:06) Respiratory Rate: 16 br/min (10/07/24 12:04:32) Systolic Blood Pressure: 120 mm Hg (10/07/24 12:02:15) Diastolic Blood Pressure:??43 mm Hg??Low (10/07/24 12:02:15) Blood pressure sites: Arm, left (10/06/24 20:17:00) Mean Arterial Pressure: 80 mm Hg (10/06/24 20:17:00) Pulse Pressure: 45 mm Hg (10/07/24 09:00:00) Oxygen Saturation: 100 % (10/07/24 12:04:32) Mode of Delivery (Oxygen): Room air (10/07/24 12:02:00) End Tidal CO2: 38 mm Hg (10/06/24 17:41:00) Early Warning Score: 2 (10/07/24 12:05:49) Temperature, Opiate Withdrawal: 97.8 DegF (10/07/24 06:15:00) Temperature Route, Opiate Withdrawal: Core (10/07/24 06:15:00) Pulse Rate, Opiate Withdrawal: 63 bpm (10/07/24 06:15:00) Respiratory Rate, Opiate Withdrawal: 19 br/min (10/07/24 06:15:00) Systolic BP, Opiate Withdrawal: 92 mm Hg (10/07/24 06:15:00) Diastolic BP, Opiate Withdrawal:??42 mm Hg??Low (10/07/24 06:15:00) ? Intake/Output? 10/06 16:46 10/07 07:00 10/06 07:00 10/05 07:00 10/04 07:00 ?? 10/07 12:23 10/07 12:23 10/07 06:59 10/06 06:59 10/05 06:59 Intake ? 1100 ?450 ?650 ?0 ?0 Output ? 3775 ? 1000 ? 2775 ?0 ?0 Net Total ?-2675 ? -550 ?-2125 ?0 ?0 ? Physical Exam Physical Exam: General: Patient appears in no acute distress.?? HEENT: Moist mucous membranes noted.?? Cardiovascular: Regular rate and rhythm. Respiratory: Lungs clear to auscultation bilaterally. Abdominal: Soft Extremities: Trace peripheral edema.??All extremities warm to touch Neuro: Alert and oriented to person, place. ?? Assessment/Plan Ashly Costa is a 64-year-old female??with PMH of COPD; DVT (not on anticoagulation); HTN; seizures; polysubstance abuse??who??presented to the ED on 10/06 for evaluation of altered mental status. Found to be hypotensive, hypothermic, lethargic. Admitted for further management and Nephrology consulted for DOUG.? 1. DOUG Cr 1.1 in September 2021 Cr 3.14 mg/dL on arrival, improved to 1.89 mg/dL today ?? Likely a prerenal DOUG given decreased PO intake and diarrhea with ongoing Lasix use, supported by Kurt<20??and improvement in renal function with IVF. UA not suggestive of GN, AIN. Postrenal causesless likely as pt denies symptoms of urinary retention/obstruction, and currently has garcia catheter in place. Concern for rhabdomyolysis as pt was found down, however CK 73.? 2. Metabolic Acidosis Bicarb 14, AG 11 NAGMA likely in the setting of diarrhea, DOUG, Normal Saline ?? Recommendations:?? - Hold home Lasix at this time - LR at 100 mL/hr. If pt tolerates PO intake well, OK to d/c IVF - Start sodium bicarb 1300 mg BID - Daily renal panel - Monitor I/Os - Avoid nephrotoxins including NSAIDs and IV contrast ?Thank you,??will continue to follow. ?Ros Andersen PA-C ?[facility] ?Discussed with ??Raya ?? Histories Allergies Allergies ?(Active and Proposed Allergies Only) NKA? (Severity: Unknown severity, Onset: Unknown) ? Past Medical History/Problem List Active Problems(26) Anxiety Anxiety and depression Bipolar disorder Cervical disc disease Chronic pain of left wrist COPD with emphysema Deep vein thrombosis (DVT) of left lower extremity Depression Encounter to establish care Generalized arthritis History of alcohol abuse History of claustrophobia History of substance abuse HTN (hypertension) Insomnia Lumbar disc disease Macrocytic anemia with vitamin B12 deficiency Memory loss Microcytic anemia Mood disorder Nasal congestion Obese class I Parkinson's disease Seasonal allergies Seizure disorder Vitamin B12 deficiency ? Past Surgical History No surgery history documented. ? Social History Alcohol Details:??Use: Past. ??Other: quit 8 years ago. Details:??Use: Past. Employment/School Details:??Status: Disabled. Exercise Details:??Self assessment: Poor condition. Home/Environment Details:??Living situation: Home/Independent. Nutrition/Health Details:??Diet: Gluten free. Details:??Diet: Regular. Other Details:??Name: Family member around, 18 years old mother and daughter.. Sexual Details:??Sexually involved in last 6 months: No. Substance Abuse Details:??Use: Past. ??Other: coke, crack, stopped 13 years ago. Tobacco Details:??Use: Former smoker, quit more than 30 days ago. ??Other: quit 8 month ago. ? Family History No Family History documented. ? Medications Home Medications Acetaminophen (acetaminophen 500 mg oral tablet)?1?tab(s)?500?Milligram amiTRIPTYLINE (amitriptyline 50 mg oral tablet)?1?tab(s)?50?Milligram?By Mouth?Daily at bedtime apixaban (Eliquis 5 mg oral tablet)?1?tab(s)?5?Milligram?By Mouth?2 times a day BusPIRone (busPIRone 5 mg oral tablet)?5?Milligram?1?tablet?By Mouth?2 times a day Carbidopa-Levodopa (carbidopa-levodopa 25 mg-100 mg oral tablet, disintegrating)?2?tab(s)?By Mouth?4 times a day Cetirizine (cetirizine 10 mg oral capsule)?1?capsule?10?Milligram?By Mouth?Daily Cholecalciferol (Vitamin D3 2000 intl units oral capsule)?1?capsule?50?Microgram?By Mouth?Daily Clonazepam (clonazePAM 1 mg oral tablet)?See Instructions?take 0.5 tablet, as needed for anxiety, do not take more than 1 tablets/day. Clonazepam (clonazePAM 0.5 mg oral tablet)?1?tab(s)?0.5?Milligram?By Mouth?2 times a day?for 2?Days Cyanocobalamin (cyanocobalamin 1000 mcg/ml injectable solution)?See Instructions?1,000 mcg Intramuscular ONCE a month for 4 months starting 10/24/21to be given in office Desvenlafaxine (desvenlafaxine 50 mg oral tablet, extended release)?1?tab(s)?50?Milligram?By Mouth?Daily DiphenhydrAMINE (Banophen 25 mg oral tablet)?1?tab(s)?25?Milligram?By Mouth?3 times a day Fluticasone (Flovent Diskus 100 mcg/inh inhalation powder)?1?puff(s)?Inhalation?2 timesa day Fluticasone Nasal (Flonase 50 mcg/inh nasal spray)?1?spray(s)?Nares, Both?2 times a day fluticasone-vilanterol (Breo Ellipta 200 mcg-25 mcg/inh inhalation powder)?1?puff(s)?Inhalation?Daily Folic Acid (folic acid 1 mg oral tablet)?1?Milligram?1?tablet?By Mouth?Daily Furosemide (furosemide 20 mg oral tablet)?20?Milligram?1?tablet?By Mouth?Daily Gabapentin (gabapentin 300 mg oral capsule)?300?Milligram?1?capsule?By Mouth?3 times a day HydrOXYzine (Vistaril pamoate 25 mg oral capsule)?See Instructions?as needed?for itching?Take one table every 8 hours as needed for anxiety or panic attack Lisinopril (lisinopril 2.5 mg oral tablet)?2.5?Milligram?1?tablet?By Mouth?Daily Magnesium Gluconate (magnesium gluconate 500 mg oral tablet)?1?tab(s)?500?Milligram?By Mouth?2 times a day Omeprazole (omeprazole 20 mg oral enteric coated capsule)?1?capsule?20?Milligram?By Mouth?Daily Oxybutynin (oxybutynin 5 mg/24 hours oral tablet, extended release)?1?tab(s)?5?Milligram?By Mouth?Daily Primidone (primidone 50 mg oral tablet)?50?Milligram?1?tablet?By Mouth?3 times a day Pseudoephedrine (pseudoephedrine 120 mg oral tablet, extended release)?1?tab(s)?120?Milligram?By Mouth?Every 12 hours?as needed?as needed for cold symptoms Topiramate (topiramate 200 mg oral capsule, extended release)?1?capsule?200?Milligram?By Mouth?Daily umeclidinium (Incruse Ellipta 62.5 mcg/inh inhalation powder)?1?Each?Inhalation?Every 24 hours?doses should be taken at least 24 hours apart Zolpidem (zolpidem 5 mg oral tablet)?1?tab(s)?5?Milligram?By Mouth?Daily at bedtime?as needed?as needed for insomnia ? Inpatient Medications Medications (17) Active SCHEDULED: (8) Apixaban 5 mg Tablet (Eliquis) ??5 mg, By Mouth, 2 times a day Breo Ellipta 200 mcg / 25 mcg Inhaler (Breo Ellipta 200 mcg-25 mcg Inhaler) ??1 puffs, Inhalation, Daily Carbidopa 25 mg / Levodopa 100 mg Tablet (Sinemet 25 mg-100 mg oral tablet) ??2 tablet, By Mouth, 4times a day NaCl 0.9% Flush 3ml (NaCL 0.9% Flush) ??3 mL, IV Push, Every 8 hours Sodium Bicarbonate 650 mg Tablet (sodium bicarbonate 650 mg oral tablet) ??1,300 mg, By Mouth, 2 times a day Spiriva Respimat 2.5 mcg Inhaler (Spiriva Respimat Inhaler) ??2 puffs, Inhalation, Daily Topiramate 100 mg Tablet (Topiramate Tablet) ??100 mg, By Mouth, Every 12 hours Vitamin D 1000 IU Tablet (Vitamin D3 1000 intl units oral tablet) ??2,000 International_Units, By Mouth, Daily CONTINUOUS: (1) Lactated Ringers (1000 mL) Cont IV 1,000 mL (LR 1,000 mL) ??1,000 mL, IV Infusion, 100 mL/hr PRN: (8) Acetaminophen 325 mg Tablet (Acetaminophen Tablet) ??650 mg, By Mouth, Every 4 hours Albuterol 90mcg/Inhalation Inhaler HFA (albuterol CFC free 90 mcg/inh inhalation aerosol) ??180 mcg2 puffs, Inhalation, Every 4 hours Docusate Sodium 100 mg Capsule (Docusate Sodium Capsule) ??100 mg 1 capsule, By Mouth, 2 times a day Melatonin 3 mg Tablet (Melatonin Tablet) ??3 mg, By Mouth, Daily at bedtime Midodrine 5 mg Tablet (midodrine 5 mg oral tablet) ??10 mg, By Mouth, 3 times a day NaCl 0.9% Flush 3ml (NaCL 0.9% Flush) ??3 mL, IV Push, Every 8 hours Polyethylene Glycol 17 Gm Powder (MiraLax Powder) ??17 Gm 1 pack/packet, By Mouth, Daily Senna Tablet ??8.6 mg 1 tablet, By Mouth, 2 times a day ? Results Recent Labs BLOOD COUNT & DIFF WBC 7.4 k/mm3 ()?? 10/07/2024 00:14 RBC 3.11 m/mm3 (Low)?? 10/07/2024 00:14 Hgb 10.1 Gm/dL (Low)?? 10/07/2024 00:14 Hct 30.5 % (Low)?? 10/07/2024 00:14 MCV 98.1 femtoliters ()?? 10/07/2024 00:14 MCH 32.5 pg ()?? 10/07/2024 00:14 MCHC 33.1 Gm/dL ()?? 10/07/2024 00:14 Platelet Count 164 k/mm3 ()?? 10/07/2024 00:14 RDW-SD 48.5 femtoliters (High)?? 10/07/2024 00:14 MPV 10.2 femtoliters ()?? 10/07/2024 00:14 Nucleated RBC (Automated) 0.0 #/100 WBC'S ()?? 10/07/2024 00:14 Abs. NRBC 0.0 k/mm3 ()?? 10/07/2024 00:14 Abs. Neut 4.3 k/mm3 ()?? 10/07/2024 00:14 Abs. Lymph 1.5 k/mm3 ()?? 10/07/2024 00:14 Abs. [place] 1.2 k/mm3 (High)?? 10/07/2024 00:14 Abs. Eo 0.3 k/mm3 ()?? 10/07/2024 00:14 Abs. Baso 0.1 k/mm3 ()?? 10/07/2024 00:14 Neut % 58.3 % ()?? 10/07/2024 00:14 Lymph % 20.5 % ()?? 10/07/2024 00:14 [place] % 16.3 % (High)?? 10/07/2024 00:14 Eos % 3.8 % ()?? 10/07/2024 00:14 Baso % 0.7 % ()?? 10/07/2024 00:14 Imm Gran 0.4 % ()?? 10/07/2024 00:14 Abs. Imm Gran 0.0 k/mm3 ()?? 10/07/2024 00:14 ?? CARDIAC CK, Total 73 units/L ()?? 10/06/2024 12:36 High Sensitivity Troponin (HSTnT) 7 ng/L ()?? 10/07/2024 00:14 ?? CHEM GENERAL Sodium 137 mmol/L ()?? 10/07/2024 00:14 Potassium 4.1 mmol/L ()?? 10/07/2024 00:14 Chloride 112 mmol/L (High)?? 10/07/2024 00:14 Bicarbonate Level 14 mmol/L (Low)?? 10/07/2024 00:14 Anion Gap 11 ()?? 10/07/2024 00:14 Glucose Level 97 mg/dL ()?? 10/07/2024 00:14 Glucose, POC 108 mg/dL (High)?? 10/06/2024 11:58 BUN 29 mg/dL (High)?? 10/07/2024 00:14 Creatinine-Blood 1.89 mg/dL (High)?? 10/07/2024 00:14 Estimated GFR Creatinine 29 ML/MIN/1.73 M2 ()?? 10/07/2024 00:14 Osmolality 290 mOs/kg ()?? 10/06/2024 19:14 Calcium 7.6 mg/dL (Low)?? 10/07/2024 00:14 Calcium, Ionized pH Corrected 1.12 mmol/L (Low)?? 10/07/2024 00:14 Phosphorus 2.9 mg/dL ()?? 10/07/2024 00:14 Magnesium 1.8 mg/dL ()?? 10/07/2024 00:14 Protein, Total 5.6 Gm/dL (Low)?? 10/06/2024 19:14 Albumin 3.3 Gm/dL (Low)?? 10/06/2024 19:14 AG Ratio 1.4 ()?? 10/06/2024 19:14 Alkaline Phosphatase 91 units/L ()?? 10/06/2024 19:14 AST (SGOT) 20 units/L ()?? 10/06/2024 19:14 ALT (SGPT) 25 units/L ()?? 10/06/2024 19:14 Bilirubin, Total 0.2 mg/dL ()?? 10/06/2024 19:14 Lactate 0.5 mmol/L ()?? 10/06/2024 17:45 ?? ENDOCRINE/TUMOR MARKER TSH 1.18 uIU/mL ()?? 10/06/2024 12:36 Cortisol Level 12.0 ??g/dL ()?? 10/06/2024 12:36 Prolactin 42.1 ng/mL (High)?? 10/06/2024 12:36 Percent Monomeric Prolactin 97 % ()?? 10/06/2024 12:36 ?? MISC. CHEMISTRY Procalcitonin 0.11 ng/mL ()?? 10/06/2024 19:14 ?? TOXICOLOGY/TDM Ethanol, Serum or Plasma NONE DETECTED mg/dL ()?? 10/06/2024 12:36 Salicylate Level <0.3 mg/dL (Low)?? 10/06/2024 12:36 Barbiturate Screen, Urine POSITIVE (Abnormal)?? 10/06/2024 12:55 Cannabinoid Screen, Urine NONE DETECTED ()?? 10/06/2024 12:55 Cocaine Metabolite Screen, Urine NONE DETECTED ()?? 10/06/2024 12:55 Benzodiazepine Screen, Urine NONE DETECTED ()?? 10/06/2024 12:55 Amphetamine Screen, Urine NONE DETECTED ()?? 10/06/2024 12:55 Opiate Screen, Urine NONE DETECTED ()?? 10/06/2024 12:55 Acetaminophen Level <5 mg/L (Low)?? 10/06/2024 12:36 ?? UA/URINALYSIS Appear/Color, Urine YELLOW ()?? 10/06/2024 12:55 Specific [place], Urine 1.010 ()?? 10/06/2024 12:55 pH, Urine 5.5 ()?? 10/06/2024 12:55 Albumin, Urine NEGATIVE ()?? 10/06/2024 12:55 Glucose, Urine NEGATIVE ()?? 10/06/2024 12:55 Ketones, Urine NEGATIVE ()?? 10/06/2024 12:55 Bilirubin, Urine NEGATIVE ()?? 10/06/2024 12:55 Hemoglobin, Urine NEGATIVE ()?? 10/06/2024 12:55 Nitrite, Urine NEGATIVE ()?? 10/06/2024 12:55 Leukocyte, Urine NEGATIVE ()?? 10/06/2024 12:55 Urobilinogen NORMAL mg/dL ()?? 10/06/2024 12:55 WBC's, Urine 1 /HPF ()?? 10/06/2024 12:55 RBC's, Urine 1 /HPF ()?? 10/06/2024 12:55 Squamous Epith 1 /HPF ()?? 10/06/2024 12:55 Transitional Epith <1 /HPF ()?? 10/06/2024 12:55 Hyaline Cast 3 LPF (High)?? 10/06/2024 12:55 Mucus SLIGHT /LPF ()?? 10/06/2024 12:55 Hold Urine Culture Testing available 48 hours from time of collection. ()?? 10/06/2024 12:55 ?? URINE OTHER Creatinine, Urine Random 52.2 mg/dL ()?? 10/07/2024 00:10 Sodium, Urine Random <20 mmol/L ()?? 10/07/2024 00:10 Urea Nitrogen, Urine Random 278.8 mg/dL ()?? 10/07/2024 00:10 Osmolality, Urine Random 190 mOsm/kg ()?? 10/07/2024 00:10 Est Creatinine Clearance 24.01 mL/min ()?? 10/07/2024 01:03 ?? VIROLOGY COVID-19 by RT-PCR NEGATIVE ()?? 10/06/2024 12:25 ? CBC, CBC w/Diff?? CBC?? Differential?? WBC: 7.4 k/mm3 (00:14) Abs. Neut: 4.3 k/mm3 (00:14) RBC:??3.11 m/mm3??Low (00:14) Abs. Lymph: 1.5 k/mm3 (00:14) Hct:??30.5 %??Low (00:14) Abs. [place]:??1.2 k/mm3??High (00:14) RDW-SD:??48.5 femtoliters??High (00:14) Abs. Eo: 0.3 k/mm3 (00:14) Nucleated RBC (Automated): 0 #/100 WBC'S (00:14) Abs. Baso: 0.1 k/mm3 (00:14) Abs. NRBC: 0 k/mm3 (00:14) Neut %: 58.3 % (00:14) ?? Lymph %: 20.5 % (00:14) ?? [place] %:??16.3 %??High (00:14) ?? Eos %: 3.8 % (00:14) ?? Baso %: 0.7 % (00:14) ?? Imm Gran: 0.4 % (00:14) ?? Abs. Imm Gran: 0 k/mm3 (00:14) ? BMP, Mg, and Phos Anion Gap: 11 (00:14) Bicarbonate Level:??14 mmol/L??Low (00:14) BUN:??29 mg/dL??High (:) Calcium:??7.6 mg/dL??Low (:) Calcium, Ionized pH Corrected:??1.12 mmol/L??Low (:14) Chloride:??112 mmol/L??High (:) Creatinine-Blood:??1.89 mg/dL??High (:) Estimated GFR Creatinine: 29 ML/MIN/1.73 M2 (:14) Glucose Level: 97 mg/dL (:14) Magnesium: 1.8 mg/dL (:) Phosphorus: 2.9 mg/dL (:) Potassium: 4.1 mmol/L (:) Sodium: 137 mmol/L (:14) ?? Urinalysis Albumin, Urine: NEGATIVE (12:55) Appear/Color, Urine: YELLOW (12:55) Bilirubin, Urine: NEGATIVE (12:55) Creatinine, Urine Random: 52.2 mg/dL (00:10) Est Creatinine Clearance: 24.01 mL/min (01:03) Est Creatinine Clearance: 21.3 mL/min (20:25) Glucose, Urine: NEGATIVE (12:55) Hemoglobin, Urine: NEGATIVE (12:55) Hold Urine: Testing Available 24 hours from Time of Collection (00:10) Hold Urine Culture: Testing available 48 hours from time of collection. (12:55) Hyaline Cast:??3 LPF??High (12:55) Ketones, Urine: NEGATIVE (12:55) Leukocyte, Urine: NEGATIVE (12:55) Mucus: SLIGHT (12:55) Nitrite, Urine: NEGATIVE (12:55) Osmolality, Urine Random: 190 mOsm/kg (00:10) pH, Urine: 5.5 (12:55) RBC's, Urine: 1 /HPF (12:55) Sodium, Urine Random: <20 (00:10) Specific [place], Urine: 1.01 (12:55) Squamous Epith: 1 /HPF (12:55) Transitional Epith: <1 (12:55) Urea Nitrogen, Urine Random: 278.8 mg/dL (00:10) Urobilinogen: NORMAL (12:55) WBC's, Urine: 1 /HPF (12:55) ?? Microbiology ?? COVID-19 (Novel Coronavirus), Rapid PCR?? Completed?? Source: Nasal Body Site: Nose Collected Dt/Tm: 10/06/2024 12:13 Last Updated Dt/Tm: 10/06/2024 14:42 ? * Bhumika Dos Santos MD: PERFORM Event Display: Consultation Note Authored Date: Patient and charted reviewed. Management discussed with PA. ??Continue the current management as documented in PA's chart?? * Michael Chand MD: PERFORM Event Display: Consult Authored Date: Patient: ??LANOUE, ASHLY ? Age:??64 Years?Sex:??Female?:??1960?? Chief Complaint pt coming from home pt was found on the floor by her FUR POINTER confused, pt now a/ox4 lethargic, arousbale to verbal stimuli, question of being over medicated hx of seizures per EMS Reason for Consultation Hypotension History of Present Illness 64F w/COPD, DVT (not anticoagulated), remote hx of polysubstance use, admitted w/AMS. MICU has beenconsulted d/t hypotension. ?? While patient is fully awake and conversant she is unable to provide meaningful history d/t nonsensical answers. ?? History per chart review: - Patient initially hypotensive w/SBP 70s on arrival, unresponsive to noxious stimuli, BP has improved to SBP high 80s-90s s/p 4.5L IVF. - ED provider at bedside w/US (@6PM), negative FAST exam, full bladder, and collapsable IVC Physical Exam Vitals & Measurements T:??95.8?F?? TMIN:??94.6?F?? TMAX:??97.6?F?? HR:??84??(Peripheral)?? RR:??16?? BP:??93/55?? SpO2:??96%?? General: No acute distress HEENT: atraumatic/normocephalic, EOMI, PERRL, no lymphadenopathy appreciated Cardio: regular rate, no r/g/m, JVD not appreciated Respiratory: CTA bilaterally w/ no audible wheezes or rales Abdomen: soft, NT, nondistended Extremities: trace edema bilaterally Skin: no rashes appreciated Vascular: cap refill <3s all four extremities Neuro: No gross deficits appreciated Assessment/Plan 64F w/COPD, DVT (not anticoagulated), remote hx of polysubstance use, admitted w/AMS. MICU has beenconsulted d/t hypotension. ?? Given MAPs>65 and absence of s/sx volume overload (pt on RA, laying flat) as well as collapsableIVC indicating she can tolerate additional fluid, she is appropriate for inter-care at this time. ?? Recommendations: - Okay for additional fluid for recurrent hypotension based off POCUS IVC in ED @6PM - Actively rewarm w/Danielle powell - F/u repeat Labs/lactate - Obtain TSH free T4 - Renal consult - Remove HTN from pts past medical history - Rest of care per primary ?? Case discussed w/MICU attending Dr King ?? Michael Chand MD [facility] Fellow Admission evaluation note * Flip LOPES, Araceli: MODIFY, PERFORM Event Display: Admission Note Authored Date: Patient: ??ASHLY COSTA ? Age:??64 Years?Sex:??Female?:??1960?? Chief Complaint/Reason for Consultation pt coming from home pt was found on the floor by her FUR POINTER confused, pt now a/ox4 lethargic, arousbale to verbal stimuli, question of being over medicated hx of seizures per EMS History of Present Illness 64-year-old lady with PMH of COPD; DVT (not on anticoagulation); HTN; seizures; polysubstance abuse; presented to the ED on 10/06 for evaluation of altered mental status.?? As per history given to the ED by EMS, patient's VNA went to check on the patient and found her on the ground, not responding appropriately to verbal stimuli; EMS arrived on the scene, found patient to be hypotensive with SBP 90s, patient received 500 cc IV fluid bolus; in the ED, found to have BP 100/50s, hypothermic temp 97.6F, HR 70s, saturating well on room air. -As per ED note, physical exam revealed bilateral 5 mm pupils and reactive to light, no obvious deformity or injury; lethargic, intermittently responsive to verbal/noxious stimuli.?? Subsequently patient became hypotensive with SBP 70s, received another liter IV fluid.?? -Medications were reviewed, patient's refill history shows amitriptyline, clonazepam, desvenlafaxine, diphenhydramine, gabapentin, zolpidem, there is suspicion of polypharmacy. -EKG showed NSR, HR 70, no acute ST segment or T wave changes. -CXR showed bibasilar opacities suggestive of likely atelectasis in setting of low lung volumes.?? Underlying left basilar infection cannot be excluded. -Noncontrast CT brain and cervical spine nonacute. -ED bedside ultrasound showed bladder volume 560 cc, no hydronephrosis on either side; grossly normal limited cardiac exam, collapsed IVC and low CVP; grossly normal lung exam.?? Overall negative FAST exam. -Since patient has been hypotensive, SBP in 80s-90s, despite 4.5 L IVF, ICU was consulted; recommended that since patient has collapsed IVC, more fluid can be given, and appropriate for [facility] admission. ?? Vitals: Hypothermia, lowest temp 94.6 F, on warming blanket, currently temp 98.2 F (gallbladder); HR 14-18, lowest BP 78/51, currently maintaining 100/70s, saturating well on room air. ?? LABS: -WBC, platelet WNL; H/H 10.2/30.7 with high normal MCV -Sodium 129---> 137 and 6 hours; and chloride 98---> 111 (likely not to value of repeat labs as patient might have been getting normal saline causing high sodium and chloride levels); -Initial bicarb and anion gap 13 and 18; repeat 15 and 11; lactate normal -Creatinine 3.14---> 2.13, BUN 45--> 32 (improving with IV fluids, suggestive of prerenal DOUG); creatinine clearance 21 -Ionized calcium 0.99; magnesium 1.8 -LFTs grossly unremarkable -CK 73 -High sensitive Trop unremarkable -TSH WNL -Serum ethanol not detected; serum Tylenol and salicylate levels unremarkable -U-Tox positive for barbiturates; otherwise negative for cannabinoids/cocaine/benzos/amphetamines/opiates -COVID-negative -UA negative for ketones, negative for nitrite and leukocyte; grossly unremarkable. ?? In the evening when I??assumed care of the patient,??I got a page saying that patient??pulled??her IV lines, and wants to be transferred to another hospital. I evaluated the patient,??patient was found to be lethargic, not responding to verbal stimuli,??on giving sternal rub,??she woke up, and started shouting that it hurts.?? Subsequently??I asked her??question to assess??if is oriented??and has capacity,??found to be??awake, alert, oriented x??2, I asked her??if??I can help with anything??to make her??more comfortable??and??to see if??something is bothering her??for which she wants to be transferred to [facility],??she was abusive, and??mentioned that??she would walk out of??the hospital,??she had no perception??of why she was in the hospital, and??that she is hypotensive,??deemed not to have capacity.?? Throughout the conversation, mu echeverria was verbally abusive,??tried contacting??emergency contact mentioned in CIS, not reachable multiple times, subsequently patient??pulled her??name tag, and??got from bed??while still was hypotensive with BP??80s/50s,??I had to??restrain her??for her own safety,??multiple staff members including??nurses, [employer]PHOL[employer]ER, security??helped??safely??restrain the patient, 4 point soft restraints??were placed,??patient was physically??at risk of harming herself and others,??section??12??A and B??parts of the??form filled, patient cannot leave AMA??as??she does not have capacity,??and is hypotensive??and at risk of??harm to self.?? While she was agitated,??her blood pressures became 100s/70s. ??Subsequentlywhen she was settled,??I went again??inside the room??and??explained to??her that??I had to restrain her for her own safety??and I could not reach her healthcare proxy, she was very abusive??and threatening. ?? Of note, patient could not give??any meaningful history,??medications could not be reconciled,??starting some medications??which??seem essential at this point??and??are from refill history??and review of charts.?I request morning team to confirm medications??once patient is calmer. 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 Review of Systems -Pertinent positives and negative history mentioned in HPI. Objective Vital Signs?? Temperature: 98.2 DegF (10/06/24 20:17:00) Temperature Route: Core Bladder (10/06/24 20:17:00) Normothermic Measures: Danielle hugger (10/06/24 15:47:00) Pulse Rate: 72 bpm (10/06/24 20:17:00) Heart Rate Monitored: 85 bpm (10/06/24 19:02:29) Respiratory Rate: 17 br/min (10/06/24 20:17:00) Systolic Blood Pressure: 101 mm Hg (10/06/24 20:17:00) Diastolic Blood Pressure: 70 mm Hg (10/06/24 20:17:00) Blood pressure sites: Arm, left (10/06/24 20:17:00) Mean Arterial Pressure: 80 mm Hg (10/06/24 20:17:00) Pulse Pressure: 31 mm Hg (10/06/24 20:17:00) Oxygen Saturation: 95 % (10/06/24 20:15:27) Mode of Delivery (Oxygen): Room air (10/06/24 20:15:00) End Tidal CO2: 38 mm Hg (11/19/24 17:41:00) Early Warning Score: 2 (10/06/24 20:33:46) ? Physical Exam General: Awake, alert, oriented x3. ??Not in acute distress. Following commands appropriately.?? Agitated,??verbally and physically??abusive??at this time.?? And 4 point??soft restraints??for safety of the patient and the staff. HEENT: NC/AT, PERRLA, no pallor, no icterus, moist mucous membranes. Neck: Supple, no JVD Respiratory: Clear to auscultation bilaterally. ??No wheezes, rhonchi or crackles appreciated. CVS: Regular rhythm. ??Normal S1-S2 heard. ??No murmurs appreciated. Abdomen: Soft, nondistended, nontender, Normoactive bowel sounds. Neurological: ??Speech normal. Moving all 4 limbs freely. No obvious gross focal neuro deficit appreciated. Extremities: Warm; b/l pedal pulses palpable, no b/l pedal edema. Assessment/Plan Diagnoses Hypotension ??(I95.9) 1. ??COPD with emphysema ??(J43.9) 2. ??HTN (hypertension) ??(I10) 3. ??History of substance abuse ??(F19.11) 4. ??Deep vein thrombosis (DVT) of left lower extremity ??(I82.402) 5. ??History of claustrophobia ??(Z86.59) 6. ??Parkinson's disease ??(G20.A1) 7. ??Seizure disorder ??(G40.909) 8. ??SIRS (systemic inflammatory response syndrome) ??(R65.10) 9. ??Hypothermia ??(T68.XXXA) 10. ??Hypovolemic shock ??(R57.1) 11. ??DOUG (acute kidney injury) ??(N17.9) 12. ??Anemia ??(D64.9) 13. ??Hyponatremia ??(E87.1) 14. ??High anion gap metabolic acidosis ??(E87.29) 15. ??Prerenal azotemia ??(R79.89) 16. ??Toxic metabolic encephalopathy ??(G92.8) 17. ??Anxiety and depression ??(F41.9) 18. ??Bipolar disorder ??(F31.9) 19. ??Mood disorder ??(F39) 20. ??Nasal congestion ??(R09.81) 21. ??Microcytic anemia ??(D50.9) 22. ??Vitamin B12 deficiency ??(E53.8) ?? Assessment:??64-year-old lady with PMH of COPD; DVT (not on anticoagulation); HTN; seizures; polysubstance abuse; presented to the ED on 10/06 for evaluation of altered mental status,??found to be hypothermic and hypotensive, unclear??etiology??currently;??being admitted under [facility] medicine service. ?? Hypovolemic shock (R57.1) Hypotension (I95.9) HTN (hypertension) (I10) ? -Likely hypovolemic shock,??BP improved??after??5 L IV fluids;??bedside ultrasound showed??collapsed IVC. -WBC normal, mentation improving;??noncontrast CT brain??and CXR??nonacute, UA not suggestive of infection, currently no concern for sepsis. -ICU evaluated patient,??recommended that patient can get additional IV fluids??if hypotensive, andokay for??[facility]. PLAN: -Hold antibiotics for now,??follow blood cultures, add on procalcitonin.??Will get??CT??A/P??without contrast??to look for??if there is any abdominal pathology. -Continue??normal saline??at 150 cc/h, I/O??and UOP monitoring.??Garcia in place for??temperature??monitoring as well. -Hold home antihypertensives. ?? Toxic metabolic encephalopathy (G92.8):??-Unclear etiology; noncontrast CT brain nonacute,??labs??and imaging??not concerning for infectious??source at this time. -Initially patient was lethargic,??mentation improved,??currently AO x 3,??has capacity to make decisions now. -Continue to follow blood cultures,??telemonitoring, hold antibiotics for now. -Initially was lethargic, subsequently??became agitated,??wanted to leave AMA,??under section 12 now, cannot leave AMA,??soft??restraints??in all 4 extremities placed for patient's??own safety,??patient also required??IM Zyprexa 10 mg. ?? SIRS (systemic inflammatory response syndrome) (R65.10) Hypothermia (T68.XXXA) ? -Patient presented with??altered mental status, found to be hypotensive, hypothermic,??fulfilling??SIRS??criteria, currently no source of infection??evident.??TSH WNL, noncontrast CT brain,CXR, UA??unremarkable.??DOUG improving with??IV fluids. -Follow blood cultures,??add on procalcitonin??and random serum cortisol. -Warming blanket??to keep patient normothermic. ?? DOUG (acute kidney injury) (N17.9) Prerenal azotemia (R79.89) High anion gap metabolic acidosis (E87.29) ? -Creatinine 3.14---> 2.13, BUN 45--> 32 (improving with IV fluids, suggestive of prerenal DOUG); creatinine clearance 21.??Bedside renal ultrasound did not??show??hydronephrosis, bladder volume was 500 cc, Garcia was placed. -Sending labs for calculation of FENa, FEUrea -Continue I/O, UOP??monitoring; avoid nephrotoxic agents, renally dose medications ?? Hyponatremia (E87.1):??-Sodium 129---> 137 and 6 hours; and chloride 98---> 111 (likely not to value of repeat labs as patient might have been getting normal saline causing high sodium and chloride levels); -Will add on serum aspiratory to first lab draw, and get??urine??osmolality??and??sodium levels, but will be inaccurate as patient already received??significant??amount of IV fluids. -Continue to monitor sodium levels,??likely??hypovolemic hyponatremia in setting of??poor solute??intake;??improving with IV fluids. ?? 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):??-At home patient is on Breo, Incruse Ellipta, albuterol inhaler; while inpatient,??will give Breo/Spiriva/albuterol inhaler. -Currently not in exacerbation, not hypoxic. ?? Parkinson's disease (G20.A1):??-Continue home levodopa-carbidopa ?? Seizure disorder (G40.909):??-Continue home antiseizure medications ?? History of substance abuse (F19.11):??-Serum ethanol not detected; serum Tylenol and salicylate levels unremarkable -U-Tox positive for barbiturates; otherwise negative for cannabinoids/cocaine/benzos/amphetamines/opiates -Outpatient??also patient has been positive for benzos, patient goes to AA meetings;??continue to closely monitor patient's mental status. -Once patient more alert and awake, and if patient interested, can consider addiction medicine consult. ?? Anemia (D64.9) Microcytic anemia (D50.9) Vitamin B12 deficiency (E53.8) ? -Continue vitamin B12 -H/H 10.2/30.7 with high normal MCV ?? Deep vein thrombosis (DVT) of left lower extremity (I82.402):??-Mentioned in history, not on anticoagulation.?? Patient mentioned that she is has been on Eliquis,??but then??could not confirm??if sheis taking it??or was it ever stopped,??or dosing and frequency. ?? VTE Prophylaxis:??-SQ heparin ?? Code Status:??-Full code. ?? Date of Service: 10/06/2024 Evaluation included but not limited to, both [id number] and [id number]-jiqs-[id number]-face time on the date of the encounter, addressing the above diagnoses, chart review, obtaining/reviewing history, performinga medically necessary evaluation; and when possible CODE STATUS discussion, and counseling; documentation, charting and counseling. ?? Please note: Note prepared using voice recognition software (Magton). As a result errors may occur.When identified these labor and delivery registered nurse errors have been corrected. While every attempt is made to correct errors during dictation, errors may still exist; for any clarifications, please reach out to me on Tigerconnent or pager. Histories Allergies Allergies ?(Active and Proposed Allergies Only) NKA? (Severity: Unknown severity, Onset: Unknown) ? Past Medical History/Problem List Active Problems(26) Anxiety Anxiety and depression Bipolar disorder Cervical disc disease Chronic pain of left wrist COPD with emphysema Deep vein thrombosis (DVT) of left lower extremity Depression Encounter to establish care Generalized arthritis History of alcohol abuse History of claustrophobia History of substance abuse HTN (hypertension) Insomnia Lumbar disc disease Macrocytic anemia with vitamin B12 deficiency Memory loss Microcytic anemia Mood disorder Nasal congestion Obese class I Parkinson's disease Seasonal allergies Seizure disorder Vitamin B12 deficiency ? Past Surgical History No surgery history documented. ? Social History Alcohol Details:??Use: Past. ??Other: quit 8 years ago. Details:??Use: Past. Employment/School Details:??Status: Disabled. Exercise Details:??Self assessment: Poor condition. Home/Environment Details:??Living situation: Home/Independent. Nutrition/Health Details:??Diet: Gluten free. Details:??Diet: Regular. Other Details:??Name: Family member around, 18 years old mother and daughter.. Sexual Details:??Sexually involved in last 6 months: No. Substance Abuse Details:??Use: Past. ??Other: coke, crack, stopped 13 years ago. Tobacco Details:??Use: Former smoker, quit more than 30 days ago. ??Other: quit 8 month ago. ? Family History No Family History documented. ? Medications Home Medications Acetaminophen (acetaminophen 500 mg oral tablet)?1?tab(s)?500?Milligram amiTRIPTYLINE (amitriptyline 50 mg oral tablet)?1?tab(s)?50?Milligram?By Mouth?Daily at bedtime apixaban (Eliquis 5 mg oral tablet)?1?tab(s)?5?Milligram?By Mouth?2 times a day BusPIRone (busPIRone 5 mg oral tablet)?5?Milligram?1?tablet?By Mouth?2 times a day Carbidopa-Levodopa (carbidopa-levodopa 25 mg-100 mg oral tablet, disintegrating)?2?tab(s)?By Mouth?4 times a day Cetirizine (cetirizine 10 mg oral capsule)?1?capsule?10?Milligram?By Mouth?Daily Cholecalciferol (Vitamin D3 2000 intl units oral capsule)?1?capsule?50?Microgram?By Mouth?Daily Clonazepam (clonazePAM 1 mg oral tablet)?See Instructions?take 0.5 tablet, as needed for anxiety, do not take more than 1 tablets/day. Clonazepam (clonazePAM 0.5 mg oral tablet)?1?tab(s)?0.5?Milligram?By Mouth?2 times a day?for 2?Days Cyanocobalamin (cyanocobalamin 1000 mcg/ml injectable solution)?See Instructions?1,000 mcg Intramuscular ONCE a month for 4 months starting 10/24/21to be given in office Desvenlafaxine (desvenlafaxine 50 mg oral tablet, extended release)?1?tab(s)?50?Milligram?By Mouth?Daily DiphenhydrAMINE (Banophen 25 mg oral tablet)?1?tab(s)?25?Milligram?By Mouth?3 times a day Fluticasone (Flovent Diskus 100 mcg/inh inhalation powder)?1?puff(s)?Inhalation?2 timesa day Fluticasone Nasal (Flonase 50 mcg/inh nasal spray)?1?spray(s)?Nares, Both?2 times a day fluticasone-vilanterol (Breo Ellipta 200 mcg-25 mcg/inh inhalation powder)?1?puff(s)?Inhalation?Daily Folic Acid (folic acid 1 mg oral tablet)?1?Milligram?1?tablet?By Mouth?Daily Gabapentin (gabapentin 300 mg oral capsule)?300?Milligram?1?capsule?By Mouth?3 times a day HydrOXYzine (Vistaril pamoate 25 mg oral capsule)?See Instructions?as needed?for itching?Take one table every 8 hours as needed for anxiety or panic attack Magnesium Gluconate (magnesium gluconate 500 mg oral tablet)?1?tab(s)?500?Milligram?By Mouth?2 times a day Oxybutynin (oxybutynin 5 mg/24 hours oral tablet, extended release)?1?tab(s)?5?Milligram?By Mouth?Daily Primidone (primidone 50 mg oral tablet)?50?Milligram?1?tablet?By Mouth?3 times a day Pseudoephedrine (pseudoephedrine 120 mg oral tablet, extended release)?1?tab(s)?120?Milligram?By Mouth?Every 12 hours?as needed?as needed for cold symptoms Topiramate (topiramate 200 mg oral capsule, extended release)?1?capsule?200?Milligram?By Mouth?Daily umeclidinium (Incruse Ellipta 62.5 mcg/inh inhalation powder)?1?Each?Inhalation?Every 24 hours?doses should be taken at least 24 hours apart Zolpidem (zolpidem 5 mg oral tablet)?1?tab(s)?5?Milligram?By Mouth?Daily at bedtime?as needed?as needed for insomnia ? Results Recent Labs BLOOD COUNT & DIFF WBC 7.2 k/mm3 ()?? 10/06/2024 12:36 RBC 3.15 m/mm3 (Low)?? 10/06/2024 12:36 Hgb 10.2 Gm/dL (Low)?? 10/06/2024 12:36 Hct 30.7 % (Low)?? 10/06/2024 12:36 MCV 97.5 femtoliters ()?? 10/06/2024 12:36 MCH 32.4 pg ()?? 10/06/2024 12:36 MCHC 33.2 Gm/dL ()?? 10/06/2024 12:36 Platelet Count 168 k/mm3 ()?? 10/06/2024 12:36 RDW-SD 48.2 femtoliters (High)?? 10/06/2024 12:36 MPV 10.4 femtoliters ()?? 10/06/2024 12:36 Nucleated RBC (Automated) 0.0 #/100 WBC'S ()?? 10/06/2024 12:36 Abs. NRBC 0.0 k/mm3 ()?? 10/06/2024 12:36 Abs. Neut 4.1 k/mm3 ()?? 10/06/2024 12:36 Abs. Lymph 1.7 k/mm3 ()?? 10/06/2024 12:36 Abs. [place] 1.1 k/mm3 (High)?? 10/06/2024 12:36 Abs. Eo 0.3 k/mm3 ()?? 10/06/2024 12:36 Abs. Baso 0.0 k/mm3 ()?? 10/06/2024 12:36 Neut % 56.6 % ()?? 10/06/2024 12:36 Lymph % 22.9 % ()?? 10/06/2024 12:36 [place] % 15.6 % (High)?? 10/06/2024 12:36 Eos % 4.0 % ()?? 10/06/2024 12:36 Baso % 0.6 % ()?? 10/06/2024 12:36 Imm Gran 0.3 % ()?? 10/06/2024 12:36 Abs. Imm Gran 0.0 k/mm3 ()?? 10/06/2024 12:36 ?? CARDIAC CK, Total 73 units/L ()?? 10/06/2024 12:36 High Sensitivity Troponin (HSTnT) 11 ng/L ()?? 10/06/2024 19:14 ?? CHEM GENERAL Sodium 137 mmol/L ()?? 10/06/2024 19:14 Potassium 4.1 mmol/L ()?? 10/06/2024 19:14 Chloride 111 mmol/L (High)?? 10/06/2024 19:14 Bicarbonate Level 15 mmol/L (Low)?? 10/06/2024 19:14 Anion Gap 11 ()?? 10/06/2024 19:14 Glucose Level 106 mg/dL (High)?? 10/06/2024 19:14 Glucose, POC 108 mg/dL (High)?? 10/06/2024 11:58 BUN 32 mg/dL (High)?? 10/06/2024 19:14 Creatinine-Blood 2.13 mg/dL (High)?? 10/06/2024 19:14 Estimated GFR Creatinine 25 ML/MIN/1.73 M2 ()?? 10/06/2024 19:14 Calcium 7.3 mg/dL (Low)?? 10/06/2024 19:14 Calcium, Ionized pH Corrected 0.99 mmol/L (Low)?? 10/06/2024 13:35 Magnesium 1.8 mg/dL ()?? 10/06/2024 12:36 Protein, Total 5.6 Gm/dL (Low)?? 10/06/2024 19:14 Albumin 3.3 Gm/dL (Low)?? 10/06/2024 19:14 AG Ratio 1.4 ()?? 10/06/2024 19:14 Alkaline Phosphatase 91 units/L ()?? 10/06/2024 19:14 AST (SGOT) 20 units/L ()?? 10/06/2024 19:14 ALT (SGPT) 25 units/L ()?? 10/06/2024 19:14 Bilirubin, Total 0.2 mg/dL ()?? 10/06/2024 19:14 Lactate 0.5 mmol/L ()?? 10/06/2024 17:45 ?? ENDOCRINE/TUMOR MARKER TSH 1.18 uIU/mL ()?? 10/06/2024 12:36 ?? TOXICOLOGY/TDM Ethanol, Serum or Plasma NONE DETECTED mg/dL ()?? 10/06/2024 12:36 Salicylate Level <0.3 mg/dL (Low)?? 10/06/2024 12:36 Barbiturate Screen, Urine POSITIVE (Abnormal)?? 10/06/2024 12:55 Cannabinoid Screen, Urine NONE DETECTED ()?? 10/06/2024 12:55 Cocaine Metabolite Screen, Urine NONE DETECTED ()?? 10/06/2024 12:55 Benzodiazepine Screen, Urine NONE DETECTED ()?? 10/06/2024 12:55 Amphetamine Screen, Urine NONE DETECTED ()?? 10/06/2024 12:55 Opiate Screen, Urine NONE DETECTED ()?? 10/06/2024 12:55 Acetaminophen Level <5 mg/L (Low)?? 10/06/2024 12:36 ?? UA/URINALYSIS Appear/Color, Urine YELLOW ()?? 10/06/2024 12:55 Specific [place], Urine 1.010 ()?? 10/06/2024 12:55 pH, Urine 5.5 ()?? 10/06/2024 12:55 Albumin, Urine NEGATIVE ()?? 10/06/2024 12:55 Glucose, Urine NEGATIVE ()?? 10/06/2024 12:55 Ketones, Urine NEGATIVE ()?? 10/06/2024 12:55 Bilirubin, Urine NEGATIVE ()?? 10/06/2024 12:55 Hemoglobin, Urine NEGATIVE ()?? 10/06/2024 12:55 Nitrite, Urine NEGATIVE ()?? 10/06/2024 12:55 Leukocyte, Urine NEGATIVE ()?? 10/06/2024 12:55 Urobilinogen NORMAL mg/dL ()?? 10/06/2024 12:55 WBC's, Urine 1 /HPF ()?? 10/06/2024 12:55 RBC's, Urine 1 /HPF ()?? 10/06/2024 12:55 Squamous Epith 1 /HPF ()?? 10/06/2024 12:55 Transitional Epith <1 /HPF ()?? 10/06/2024 12:55 Hyaline Cast 3 LPF (High)?? 10/06/2024 12:55 Mucus SLIGHT /LPF ()?? 10/06/2024 12:55 Hold Urine Culture Testing available 48 hours from time of collection. ()?? 10/06/2024 12:55 ?? URINE OTHER Est Creatinine Clearance 21.30 mL/min ()?? 10/06/2024 20:25 ?? VIROLOGY COVID-19 by RT-PCR NEGATIVE ()?? 10/06/2024 12:25 ? Microbiology ?? COVID-19 (Novel Coronavirus), Rapid PCR?? Completed?? Source: Nasal Body Site: Nose Collected Dt/Tm: 10/06/2024 12:13 Last Updated Dt/Tm: 10/06/2024 14:42 ? * Araceli Castelan MD: PERFORM Event Display: Admission Note Authored Date: -Please note??patient is on Eliquis??as per the refill history, please disregard??if mention not onanticoagulation??in the note. -On patient's behalf, call made to [facility] for transfer,??awaiting response. * Araceli Castelan MD: PERFORM Event Display: Admission Note Authored Date: -??Spoke with??nursing supervisor remelt??at [facility]??responsible for transfers,??since patient is intermittently hypotensive, patient??will require ICU level of care??at their hospital, and currently??they do not have ICU bed??availability??for this patient transfer.?? Updated the RN??to update the patient at bedside. * Araceli Castelan MD: PERFORM Event Display: Admission Note Authored Date: -Of note, patient intermittently hypotensive,??started on midodrine 10 mg 3 times daily, currently BP 100/50s, with MAP??65, not symptomatic, continues to be lethargic??with intermittent??agitation. EKG study * Event Display: ECG 12-Lead Authored Date: Please click on pdf link to open report * Event Display: ECG 12-Lead Authored Date: Ventricular Rate: 63 BPM Atrial Rate: 63 BPM P-R Interval: 172 ms QRS Duration: 76 ms Q-T Interval: 386 ms QTC Calculation(Bazett): 395 ms P [place]: 39 degrees R [place]: 26 degrees T [place]: 41 degrees Normal sinus rhythm with sinus arrhythmia Low voltage QRS Borderline ECG When compared with ECG of 06-Oct-2024 11:53, QT has shortened Confirmed by NEISHA CURRIE MD ([id number]) on 10/08/2024 10:23:31 AM [place]: NEISHA CURRIE MD * Event Display: ECG 12-Lead Authored Date: Please click on pdf link to open report * Event Display: ECG 12-Lead Authored Date: Ventricular Rate: 67 BPM Atrial Rate: 67 BPM P-R Interval: 160 ms QRS Duration: 82 ms Q-T Interval: 432 ms QTC Calculation(Bazett): 456 ms P [place]: 58 degrees R [place]: 43 degrees T [place]: 52 degrees Normal sinus rhythm Normal ECG No previous ECGs available Confirmed by NEISHA CURRIE MD ([id number]) on 10/06/2024 2:47:45 PM [place]: NEISHA CURRIE MD Cardiology * Event Display: Cardiac Rhythm Strips Authored Date: * Event Display: Cardiac Rhythm Strips Authored Date: * Event Display: Cardiac Rhythm Strips Authored Date: Hospital Progress note * Aliyah Anderson RN: MODIFY, PERFORM, SIGN, VERIFY, SIGN Event Display: Progress Note Hospital Authored Date: Patient: ASHLY COSTA Age: 64 years Sex: Female : 1960 Associated Diagnoses: None Author: Aliyah Anderson RN Findings Problem Related to Alteration in Neurological : Alteration in Neurological Function/new 10/18/2024 6:00 EST Alteration in Neuro status Related to Other: metabolic encephalopathy Goals & Outcomes, Neurological Pt is safe with transfers & activities, Pt will be discharged without infection, Pt will be Neurologically stable, Pt will maintain intact skin integrity, Pt will remain free from injury, Pt/caregiver will receive psychosocial support as needed, Pt/caregiver will state understanding of rehab plan Interventions, Neurological Assess/monitor for abnormal posturing, Assess/monitor for gaze pattern/extraocular movements, Assess/monitor for increased Intracranial Pressure, Assess/monitor neurologicstatus, Assess/monitor VS per unit standards & prn, Call/Report variances in assessments to provider, Keep patient's head & body in good alignment, Maintain HOB at least 30 deg, Maintain normothermia, report temp >101.5 F, Monitor for headaches, nausea, vomiting, Monitor speech fluency, aphasia, word finding difficulty, Teach & encourage deep breath & cough exercises, Teach andencourage use of Incentive spirometer, Teach pt/caregiver discharge plan & follow up care Goals/Interventions, Neurological Yes Neurological, Problem Start 10/14/2024 10:00 Reviewed plan with, Neurological Patient Patient Progression, Neurological Pt progressing according to plan . Narrative/Incidental Patient alert and oriented X4 breathing on room air, chest expansion equal, centrally and peripherally warm perfused and hydrated.Bed in lowest locked position, call rayo within reach frequent rounding in progress.Patient for discharge via ervin, access removed belongings and patient own meds that was in patient specific bin returned.Recieved Call from [facility] they will F/U with patient at home re safety.Patient left unit via chair is[place], report given to ervin romero.. * Jennifer Mason LPN Thi: SIGN, MODIFY, VERIFY, PERFORM, SIGN Event Display: Progress Note Hospital Authored Date: Patient: ASHLY COSTA Age: 64 years Sex: Female : 1960 Associated Diagnoses: None Author: Jennifer Mason LPN Findings Problem Related to Alteration in Neurological : Alteration in Neurological Function/new 10/17/2024 22:00 EST Alteration in Neuro status Related to Other: metabolic encephalopathy Goals & Outcomes, Neurological Pt is safe with transfers & activities, Pt will be discharged without infection, Pt will be Neurologically stable, Pt will maintain intact skin integrity, Pt will remain free from injury, Pt/caregiver will receive psychosocial support as needed, Pt/caregiver will state understanding of rehab plan Interventions, Neurological Assess/monitor VS per unit standards & prn Goals/Interventions, Neurological Yes Neurological, Problem Start 10/14/2024 10:00 Reviewed plan with, Neurological Patient Patient Progression, Neurological Pt progressing according to plan . Narrative/Incidental A&Ox4 VSS denies pain at thie time. Patient was concern with d/c planning, ststed she was inform to go home tomorrow and wanted to make sure her mom is aware for ride. Ensure patient day nurse will be notified of contacting Mom for a ride home. 850 CC of yellow urine in BR. Ptaient stated she urinate and empty when full. Patient mental status remian the same during asseesment. Saftey measure placed. Plan of care continues. . * Jennifer Mason LPN: PERFORM Event Display: Progress Note Hospital Authored Date: Patient reported feeling itchy. requested prn Benadryl given after midnight * Aliyah Anderson RN: VERIFY, PERFORM, SIGN Event Display: Progress Note Hospital Authored Date: Patient: ASHLY COSTA Age: 64 years Sex: Female : 1960 Associated Diagnoses: None Author: Aliyah Anderson RN Findings Problem Related to Alteration in Neurological : Alteration in Neurological Function/new 10/17/2024 13:00 EST Alteration in Neuro status Related to Other: metabolic encephalopathy Goals & Outcomes, Neurological Pt is safe with transfers & activities, Pt will be discharged without infection, Pt will be Neurologically stable, Pt will maintain intact skin integrity, Pt will remain free from injury, Pt/caregiver will receive psychosocial support as needed, Pt/caregiver will state understanding of rehab plan Interventions, Neurological Assess/monitor for abnormal posturing, Assess/monitor for gaze pattern/extraocular movements, Assess/monitor for increased Intracranial Pressure, Assess/monitor neurologicstatus, Assess/monitor VS per unit standards & prn, Maintain strict intake & output, Monitor Fluid & Electrolytes, Serum Osmolarity, Monitor speech fluency, aphasia, word finding difficulty, Physical assessment per unit standards Goals/Interventions, Neurological Yes Neurological, Problem Start 10/14/2024 10:00 Reviewed plan with, Neurological Patient Patient Progression, Neurological Pt progressing according to plan . Narrative/Incidental Patient alert and oriented X3 breathing on room air, generalize tremors and gabbled speech noted.Ivaccess patent,centrally and peripherally warm perfused and hydrated. Tolerated meal medicated as ordered. Safety maintained, bed in lowest locked position, call rayo within reach frequent rounding inprogress.. Note * Aliyah Anderson RN: PERFORM Event Display: Discharge/Transfer Note Hospital Authored Date: Nursing Discharge Note Entered On: 10/18/2024 20:20 EST Performed On: 10/18/2024 20:18 EST by Aliyah Anderson RN Nursing Discharge Note 2 Discharge Time : 10/18/2024 17:54 EST Discharge Level of Care at Discharge : Homehealth/VNA Discharge VNA/Hospice/Home Care([id number]) : [facility] Sow [phone] Patient Left Unit Via : Chair Van Patient Accompanied Off Unit with : Ambulance/Chair Van Personnel Handover Given to Transport Personnel : Yes DC Instructions Provided & Signed by Pt : Yes Patient Understands D/C Instructions : Yes Patient Instructions Discharge Signed : Yes Did Pt have Specialty Bed or Wound Vac : No Aliyah Anderson RN - 10/18/2024 20:18 EST * Wen Page MD: MODIFY, PERFORM Event Display: Discharge/Transfer Note Hospital Authored Date: Patient: ??LANOUE, ASHLY ? Age:??64 Years?Sex:??Female?:??1960?? Patient Information Discharge Location: S1 Primary Care Physician: Stefanie Mcgee Admit Date/Time: 10/06/2024 16:46 Discharge Disposition Discharge Disposition: Home with Home Health Discharge Diagnosis ?? 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) Hypertension (I10) History of substance abuse (F19.11) Hx of deep vein thrombosis (DVT) of left lower extremity (I82.402) History of claustrophobia (Z86.59) Parkinson's disease (G20.A1) Seizure disorder (G40.909) SIRS (systemic inflammatory response syndrome) (R65.10) Hypothermia (T68.XXXA) Hypovolemic shock (R57.1) DOUG (acute kidney injury) (N17.9) Anemia (D64.9) Hyponatremia (E87.1) High anion gap metabolic acidosis (E87.29) Prerenal azotemia (R79.89) Toxic metabolic encephalopathy (G92.8) Anxiety and depression (F41.9) Bipolar disorder (F31.9) Mood disorder (F39) Nasal congestion (R09.81) Microcytic anemia (D50.9) Vitamin B12 deficiency (E53.8) Agitation (R45.1) Hypotension (I95.9) Hypocalcemia (E83.51) CKD (chronic kidney disease), stage III (N18.30) GERD (gastroesophageal reflux disease) (K21.9) Hypophosphatemia (E83.39) Transaminitis (R74.01) _ Discharge Medications ?? Acetaminophen (acetaminophen 500 mg oral tablet)?1?tab(s)?500?Milligram?2 times a day Albuterol (albuterol (OP))?as needed?Wheezing/Shortness of Breath Alendronate (alendronate 70 mg oral tablet)?1?tab(s)?70?Milligram?By Mouth?Every week Amlodipine (amLODIPine 5 mg oral tablet)?5?Milligram?1?tablet?By Mouth?Daily?for 30?Days apixaban (Eliquis 5 mg oral tablet)?1?tab(s)?5?Milligram?By Mouth?2 times a day Cholecalciferol (Vitamin D3 2000 intl units oral capsule)?1?capsule?50?Microgram?By Mouth?Daily Clonazepam (clonazePAM 0.5 mg oral tablet)?1?tab(s)?0.5?Milligram?By Mouth?2 times a day Cyanocobalamin (cyanocobalamin 1000 mcg/ml injectable solution)?See Instructions?1,000 mcg Intramuscular ONCE a month for 4 months starting 10/24/21to be given in office Desvenlafaxine (desvenlafaxine 50 mg oral tablet, extended release)?1?tab(s)?50?Milligram?By Mouth?Daily DiphenhydrAMINE (Banophen 25 mg oral tablet)?1?tab(s)?25?Milligram?By Mouth?3 times a day EPINEPHrine (EPINEPHrine 0.3 mg injectable solution)?INJECT INTRAMUSCULARLY DIRECTED ON PACKAGE Fluticasone Nasal (Flonase 50 mcg/inh nasal spray)?1?spray(s)?Nares, Both?2 times a day fluticasone-vilanterol (Breo Ellipta 200 mcg-25 mcg/inh inhalation powder)?1?puff(s)?Inhalation?Daily Folic Acid (folic acid 1 mg oral tablet)?1?Milligram?1?tablet?By Mouth?Daily Gabapentin (gabapentin 100 mg oral capsule)?100?Milligram?1?capsule?By Mouth?2 times a day?200?Daily at bedtime Magnesium Oxide (magnesium oxide 400 mg oral tablet)?1?tab(s)?400?Milligram?Daily atbedtime Miscellaneous Rx (baclofen 10 mg tablet)?TAKE TWO TABLETS EVERY NIGHT NEEDED FOR PAIN Montelukast (montelukast 10 mg oral tablet)?10?Milligram?1?tablet?By Mouth?Daily Omeprazole (omeprazole 20 mg oral enteric coated capsule)?1?capsule?20?Milligram?By Mouth?Daily Oxybutynin (oxybutynin 5 mg/24 hours oral tablet, extended release)?1?tab(s)?5?Milligram?By Mouth?Daily Primidone (primidone 50 mg oral tablet)?50?Milligram?1?tablet?By Mouth?3 times a day?100?2?2 times a day Pseudoephedrine (pseudoephedrine 120 mg oral tablet, extended release)?1?tab(s)?120?Milligram?By Mouth?Every 12 hours?as needed?as needed for cold symptoms umeclidinium (Incruse Ellipta 62.5 mcg/inh inhalation powder)?1?Each?Inhalation?Every 24 hours?doses should be taken at least 24 hours apart Zolpidem (zolpidem 5 mg oral tablet)?1?tab(s)?5?Milligram?By Mouth?Daily at bedtime?as needed?as needed for insomnia?2?10 Medications Started Amlodipine Sodium bicarb Medications Discontinued Lasix and lisinopril??due to acute kidney injury???likely can be resumed once??repeat??labs with stable creatinine Amitriptyline???patient wants to hold off restarting this Topamax Doses Changed ?? None?? Allergies Allergies ?(Active and Proposed Allergies Only) Lactose? (Severity: Unknown severity, Onset: Unknown) ?Comments: pt reports gives her diarrhea Glutens? (Severity: Unknown severity, Onset: Unknown) ?Comments: celiac - per pt report Chocolate? (Severity: Unknown severity, Onset: Unknown) ?Comments: Gives her a migraine -per pt report Dogs? (Severity: Unknown severity, Onset: Unknown) ?Comments: dog dander allergy, mild , hay fever Cats? (Severity: Unknown severity, Onset: Unknown) ?Comments: CAT dander allergy , mild ? PCP Follow-Up/Heads-Up ?? needs to review medication along with her neurologist Dr Enriquez??and psychiatrist ?? Labs to check basic metabolic panel,??LFTs in 1 week ? Hospital Course ?? 64 y.o. lady, appearing older and frailer than her age (also edentulous), with a h.o. hypertension,CKD stage III (baseline sCreat = 1.1), emphysema??/??COPD,??seizure disorder,??bipolar disorder / depression / anxiety / prior h.o. ETOH & polysubstance abuse (sober x 11 years), GERD,??admitted on 10/06/2024 with acute toxic-metabolic encephalopathy / agitation / hypotension, and found to haveAKI / sCreat peaked = 3.14 which has improved now. ?? 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 Toxic metabolic encephalopathy (G92.8):??Improved Agitation (R45.1):??. Seizure disorder (G40.909):??. History of substance abuse (F19.11):??. Bipolar disorder (F31.9):?? Anxiety and depression (F41.9):??. Mood disorder (F39):??. History of claustrophobia (Z86.59):? Her toxic-metabolic encephalopathy seems to be likely related to medication accumulation in the setting of DOUG On presentation - Mentation has had a lot of [id number]-[id number] with odd affect / disorganized thought process / paranoid ideation... Of note - HIV and syphilis were tested in June 2024 which were negative. It was Confirmed by prior provider that patient has no history of HIV??disease MRI Brain - no acute finding???RPR negative Ativan has been tapered off now. ??Restarted home clonazepam Discussed with psychiatry on 10/16 - can be discharged from the standpoint???okay to restart??gabapentin, should resume desvenlafaxine on discharge. ??At this time can continue holding Topamax.?Most important thing is she should follow-up with her neurologist??and review medication as concerned that??she has polypharmacy?? Plan Continue with clonazepam 0.5 mg 2 times a day Topamax has been tapered off???will hold off on discharge Amitriptyline was discontinued as well on admission and patient wants to hold off Continue with gabapentin Should resume desvenlafaxine??on discharge ?? Transaminitis (R74.01) US liver 10/11 - Coarse hepatic echotexture likely due to underlying hepatocellular disease. No suspicious lesion. Mildly dilated common bile duct. No obstructing lesion identified but the distal duct is obscured. Recommend correlation with LFTs. If concern for obstruction, consider MRCP or ERCP Abnormal left is mostly hepatocellular pattern.?? Bilirubin within normal limit Hepatitis panel negative Blood cultures have been negative Plan Repeat labs in 1 week ?? DOUG (acute kidney injury) (N17.9):??improved Hypotension (I95.9):??resolved High anion gap metabolic acidosis (E87.29): CKD (chronic kidney disease), stage III (N18.30):??. Hypovolemic shock (R57.1):??. SIRS (systemic inflammatory response syndrome) (R65.10):??. Hypothermia (T68.XXXA):??. Prerenal azotemia (R79.89):? Peak creatinine 3.14 and improved Seen by??nephrology recommendations-kidney function has improved, however??bicarb is still low but improving Beta-hydroxybutyrate, lactate within normal limit Plan Continue to hold Lasix and lisinopril Encourage oral intake Continue with sodium bicarb Repeat labs in??1 week ?? Hyponatremia (E87.1):??.?? Resolved Hypophosphatemia (E83.39):??.?? Resolved Hypocalcemia (E83.51):??Resolved Overall improved???monitor labs ?? 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 On tiotropium + fluticasone-vilanterol + PRN albuterol ?? Vitamin B12 deficiency (E53.8):??. Microcytic anemia (D50.9):? Closely monitor CBC and transfuse accordingly ?? Hypertension (I10):? Home med lisinopril??on hold due to DOUG Plan Continue with amlodipine 5 mg daily for blood pressure ?? GERD (gastroesophageal reflux disease) (K21.9):? On PPI ?? Hx of deep vein thrombosis (DVT) of left lower extremity (I82.402):??Eliquis ?? Objective ?? Seen in the morning Seems to be in good mood, very eager to be discharged saying that she misses her dogs ?? She has been ambulating in the room with a walker and states she has 1 at home with a walker Denies any fever chills She seems to be tolerating the meds so far Discussed with her again that she should??be taking medication as prescribed.?? She should also follow-up with both her PCP,??neurologist and her psychiatrist??to review home medication and hopefullyto cut down on some medication.? Was seen by SW and CM on day of discharge and has arranged for VNA service ?? Vital Signs?? Temperature: 97.6 DegF (10/18/24 12:00:00) Temperature Route: Oral (10/18/24 12:00:00) Pulse Rate: 81 bpm (10/18/24 12:00:00) Respiratory Rate: 18 br/min (10/18/24 12:00:00) Systolic Blood Pressure:??140 mm Hg??High (10/18/24 12:00:00) Diastolic Blood Pressure: 72 mm Hg (10/18/24 12:00:00) Blood pressure sites: Arm, left (10/18/24 12:00:00) Mean Arterial Pressure: 92 mm Hg (10/18/24 08:14:00) Pulse Pressure: 68 mm Hg (10/18/24 12:00:00) Oxygen Saturation: 100 % (10/18/24 12:00:00) Mode of Delivery (Oxygen): Room air (10/18/24 12:00:00) Early Warning Score: 2 (10/18/24 12:20:06) ? . Physical Exam ?? Pleasant woman, sitting up in bed Acute distress at rest, has some tremors Chest is clear to auscultation Heart sounds regular Consultants ?? Renal - RTane Psych Pending Results Add On Lab Order ordered on 10/06/2024 Add On Lab Order ordered on 10/06/2024 Add On Lab Order ordered on 10/06/2024 Add On Lab Order ordered on 10/09/2024 Add On Lab Order ordered on 10/11/2024 Add On Lab Order ordered on 10/13/2024 Add On Lab Order ordered on 10/13/2024 Add On Lab Order ordered on 10/14/2024 Add On Lab Order ordered on 10/14/2024 Follow-Up Appointments Added Follow Up ?Time Frame ?Comments Mina LOPES, Zunilda Ernst?1 to 2 weeks?Will need to review medications Sudhir Nye?1 to 2 weeks?Will need to review medications Post Discharge Care Diet: ??Cardiac diet ?? Activity: ??As tolerated ?? Home Health Face to Face *Denotes mandatory waterman ?? *I certify that this patient is under my care and that I or an allowed non- physician working with me had a face to face encounter with the patient on this date:??10/18/2024 14:17 ?? 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) Hypertension (I10) History of substance abuse (F19.11) Hx of deep vein thrombosis (DVT) of left lower extremity (I82.402) History of claustrophobia (Z86.59) Parkinson's disease (G20.A1) Seizure disorder (G40.909) SIRS (systemic inflammatory response syndrome) (R65.10) Hypothermia (T68.XXXA) Hypovolemic shock (R57.1) DOUG (acute kidney injury) (N17.9) Anemia (D64.9) Hyponatremia (E87.1) High anion gap metabolic acidosis (E87.29) Prerenal azotemia (R79.89) Toxic metabolic encephalopathy (G92.8) Anxiety and depression (F41.9) Bipolar disorder (F31.9) Mood disorder (F39) Nasal congestion (R09.81) Microcytic anemia (D50.9) Vitamin B12 deficiency (E53.8) Agitation (R45.1) Hypotension (I95.9) Hypocalcemia (E83.51) CKD (chronic kidney disease), stage III (N18.30) GERD (gastroesophageal reflux disease) (K21.9) Hypophosphatemia (E83.39) Transaminitis (R74.01) ?? *Select the indications for the discipline/s that are being arranged for this patient. Nursing (select all that apply): [_] None [X ]medication management (reconciliation, teaching)?? [X] Chronic disease management?? [_] Wound care and treatment?? [X] Home safety evaluation [_] Administer SQ/IM/IV medications?? [_] Cath care?? [_] Drain care?? [_] Trach or GT care?? Other _ Occupation Therapy (select all that apply): [_] None [_] ADL Management [_] Fall prevention training [_] Energy conservation [_] Cognitive training Other _ Physical Therapy (select all that apply): [_] None [X] Functional mobility training [_] Home exercise program to strengthen [_] Increase ROM?? [_] Falls prevention training [_] Home maintenance program for chronic disease Other _ Speech Therapy (select all that apply): [_] None [_] Swallow evaluation and training [_] Speech and language training [_] Cognitive training to process, organize, and/or recall information Other _ ? *Homebound due to (select all that apply): [_] Inability to leave home without assistance/supervision [_] Inability to ambulate without assistance [_] Pain [X] Decreased strength and endurance [_] Unsteady gait [_] Severe SOB and fatigue [_] Impaired transfers [_] Inability to negotiate stairs [_] Limited weight bearing [_] Mental status change? *Physician Signature: Wen Page??_ ?? *By signing this, I certify that I have personally evaluated the patient and agree with the findings and recommendations as documented above. ? Results Discharge Labs BACTERIOLOGY Blood Culture Results Final report ()?? 10/06/2024 17:45 Blood Culture Specimen Source BLOOD ()?? 10/06/2024 17:45 Blood Culture Isolate 1 Comment ()?? 10/06/2024 17:45 Blood Cult 2 Results Final report ()?? 10/06/2024 17:45 Blood Culture 2 Specimen Source BLOOD ()?? 10/06/2024 17:45 Blood Culture 2 Isolate 1 Comment ()?? 10/06/2024 17:45 ?? BLOOD COUNT & DIFF WBC 6.2 k/mm3 ()?? 10/14/2024 06:37 RBC 3.96 m/mm3 (Low)?? 10/14/2024 06:37 Hgb 12.7 Gm/dL ()?? 10/14/2024 06:37 Hct 39.0 % ()?? 10/14/2024 06:37 MCV 98.5 femtoliters ()?? 10/14/2024 06:37 MCH 32.1 pg ()?? 10/14/2024 06:37 MCHC 32.6 Gm/dL (Low)?? 10/14/2024 06:37 Platelet Count 276 k/mm3 ()?? 10/14/2024 06:37 RDW-SD 49.3 femtoliters (High)?? 10/14/2024 06:37 MPV 10.2 femtoliters ()?? 10/14/2024 06:37 Nucleated RBC (Automated) 0.0 #/100 WBC'S ()?? 10/14/2024 06:37 Abs. NRBC 0.0 k/mm3 ()?? 10/14/2024 06:37 Abs. Neut 4.3 k/mm3 ()?? 10/07/2024 00:14 Abs. Lymph 1.5 k/mm3 ()?? 10/07/2024 00:14 Abs. [place] 1.2 k/mm3 (High)?? 10/07/2024 00:14 Abs. Eo 0.3 k/mm3 ()?? 10/07/2024 00:14 Abs. Baso 0.1 k/mm3 ()?? 10/07/2024 00:14 Neut % 58.3 % ()?? 10/07/2024 00:14 Lymph % 20.5 % ()?? 10/07/2024 00:14 [place] % 16.3 % (High)?? 10/07/2024 00:14 Eos % 3.8 % ()?? 10/07/2024 00:14 Baso % 0.7 % ()?? 10/07/2024 00:14 Imm Gran 0.4 % ()?? 10/07/2024 00:14 Abs. Imm Gran 0.0 k/mm3 ()?? 10/07/2024 00:14 ?? CARDIAC CK, Total 73 units/L ()?? 10/06/2024 12:36 High Sensitivity Troponin (HSTnT) 7 ng/L ()?? 10/07/2024 00:14 ?? CHEM GENERAL Sodium 142 mmol/L ()?? 10/15/2024 06:52 Potassium 4.9 mmol/L ()?? 10/15/2024 06:52 Chloride 111 mmol/L (High)?? 10/15/2024 06:52 Bicarbonate Level 18 mmol/L (Low)?? 10/15/2024 06:52 Anion Gap 13 ()?? 10/15/2024 06:52 Glucose Level 98 mg/dL ()?? 10/14/2024 06:37 Glucose, POC 108 mg/dL (High)?? 10/06/2024 11:58 Beta Hydroxybutyrate 0.16 mmol/L ()?? 10/15/2024 06:52 BUN 13 mg/dL ()?? 10/15/2024 06:52 Creatinine-Blood 1.00 mg/dL ()?? 10/14/2024 06:37 Estimated GFR Creatinine 63 ML/MIN/1.73 M2 ()?? 10/14/2024 06:37 Osmolality 290 mOs/kg ()?? 10/06/2024 19:14 Calcium 9.3 mg/dL ()?? 10/14/2024 06:37 Calcium, Ionized pH Corrected 1.28 mmol/L ()?? 10/14/2024 06:37 Phosphorus 4.3 mg/dL ()?? 10/15/2024 06:52 Magnesium 2.1 mg/dL ()?? 10/15/2024 06:52 Protein, Total 7.2 Gm/dL ()?? 10/13/2024 09:13 Albumin 3.8 Gm/dL ()?? 10/13/2024 09:13 AG Ratio 1.4 ()?? 10/06/2024 19:14 Alkaline Phosphatase 129 units/L (High)?? 10/15/2024 06:52 AST (SGOT) 46 units/L (High)?? 10/15/2024 06:52 ALT (SGPT) 70 units/L (High)?? 10/15/2024 06:52 Bilirubin, Total 0.4 mg/dL ()?? 10/15/2024 06:52 Bilirubin, Direct HEMOLYZED mg/dL ()?? 10/15/2024 06:52 Bilirubin, Indirect Unable to calculate mg/dL ()?? 10/15/2024 06:52 Vitamin B12 Level 446 pg/mL ()?? 10/09/2024 07:21 Folic Acid Level 30.5 ng/mL ()?? 10/11/2024 09:10 Lactate 0.8 mmol/L ()?? 10/15/2024 06:52 ?? COAG INR 1.1 ()?? 10/10/2024 07:11 Protime (PT) 11.5 seconds (High)?? 10/10/2024 07:11 ?? ENDOCRINE/TUMOR MARKER TSH 1.18 uIU/mL ()?? 10/06/2024 12:36 Cortisol Level 12.0 ??g/dL ()?? 10/06/2024 12:36 Prolactin 42.1 ng/mL (High)?? 10/06/2024 12:36 Percent Monomeric Prolactin 97 % ()?? 10/06/2024 12:36 ?? MISC. CHEMISTRY Thiamine Level 304.8 (High)?? 10/10/2024 07:11 Ammonia, Venous 35 ??mole/L ()?? 10/10/2024 07:11 Methylmalonic Acid Level 421 (High)?? 10/10/2024 07:11 Procalcitonin 0.11 ng/mL ()?? 10/06/2024 19:14 ?? SEROLOGY INF DISEASE Hepatitis B Surface Antigen NON REACTIVE ()?? 10/11/2024 09:10 Hepatitis C Ab NON REACTIVE ()?? 10/11/2024 09:10 RPR Non Reactive ()?? 10/15/2024 06:52 Anti-HBS Quant 4.63 mIU/mL (Low)?? 10/11/2024 09:10 Anti-HAV NEGATIVE ()?? 10/11/2024 09:10 ? TOXICOLOGY/TDM Ethanol, Serum or Plasma NONE DETECTED mg/dL ()?? 10/06/2024 12:36 Salicylate Level <0.3 mg/dL (Low)?? 10/06/2024 12:36 Barbiturate Screen, Urine POSITIVE (Abnormal)?? 10/06/2024 12:55 Cannabinoid Screen, Urine NONE DETECTED ()?? 10/06/2024 12:55 Cocaine Metabolite Screen, Urine NONE DETECTED ()?? 10/06/2024 12:55 Benzodiazepine Screen, Urine NONE DETECTED ()?? 10/06/2024 12:55 Amphetamine Screen, Urine NONE DETECTED ()?? 10/06/2024 12:55 Opiate Screen, Urine NONE DETECTED ()?? 10/06/2024 12:55 Acetaminophen Level <5 mg/L (Low)?? 10/06/2024 12:36 ? UA/URINALYSIS Appear/Color, Urine YELLOW ()?? 10/06/2024 12:55 Specific [place], Urine 1.010 ()?? 10/06/2024 12:55 pH, Urine 5.5 ()?? 10/06/2024 12:55 Albumin, Urine NEGATIVE ()?? 10/06/2024 12:55 Glucose, Urine NEGATIVE ()?? 10/06/2024 12:55 Ketones, Urine NEGATIVE ()?? 10/06/2024 12:55 Bilirubin, Urine NEGATIVE ()?? 10/06/2024 12:55 Hemoglobin, Urine NEGATIVE ()?? 10/06/2024 12:55 Nitrite, Urine NEGATIVE ()?? 10/06/2024 12:55 Leukocyte, Urine NEGATIVE ()?? 10/06/2024 12:55 Urobilinogen NORMAL mg/dL ()?? 10/06/2024 12:55 WBC's, Urine 1 /HPF ()?? 10/06/2024 12:55 RBC's, Urine 1 /HPF ()?? 10/06/2024 12:55 Squamous Epith 1 /HPF ()?? 10/06/2024 12:55 Transitional Epith <1 /HPF ()?? 10/06/2024 12:55 Hyaline Cast 3 LPF (High)?? 10/06/2024 12:55 Mucus SLIGHT /LPF ()?? 10/06/2024 12:55 Hold Urine Culture Testing available 48 hours from time of collection. ()?? 10/06/2024 12:55 Hold Urine Testing Available 24 hours from Time of Collection ()?? 10/07/2024 00:10 ? URINE OTHER Creatinine, Urine Random 52.2 mg/dL ()?? 10/07/2024 00:10 Sodium, Urine Random <20 mmol/L ()?? 10/07/2024 00:10 Urea Nitrogen, Urine Random 278.8 mg/dL ()?? 10/07/2024 00:10 Osmolality, Urine Random 190 mOsm/kg ()?? 10/07/2024 00:10 Est Creatinine Clearance 45.37 mL/min ()?? 10/14/2024 07:53 ? VIROLOGY COVID-19 by RT-PCR NEGATIVE ()?? 10/06/2024 12:25 ? 40_ minutes spent on discharge * Janna Fall RN: PERFORM, SIGN, VERIFY Event Display: Case Management Discharge Plan Authored Date: Patient: ASHLY COSTA Age: 64 years Sex: Female : 1960 Associated Diagnoses: None Author: Janna Fall RN Discharge Plan Case Management Discharge Plan : Case Management Discharge Plan Data 10/18/2024 15:02 EST Discharge Level of Care at Discharge Homehealth/VNA Discharge VNA/Hospice/Home Care [facility] [phone] Name of Agency #1 [facility] [employer] #1 Intake Service Categories #1 Home health aide, Halfway, Traffic Recorder Service Comments #1 You are being discharged home with [facility] for long term, [employer] INSPECTOR, and social work. * Aliyah Anderson RN: PERFORM Event Display: Patient Education/Instruction Authored Date: Inpatient Adult Discharge Instructions. [address] [id number] Name: ASHLY COSTA : 1960?? Visit: 10/06/2024 16:46?? Current Date: 10/18/2024 16:20 ?? Account: [id number]?? Inpatient Adult Discharge Instructions We would like to thank you for allowing us to assist you with your healthcare needs. The following includes patient education materials and information regarding your injury/illness. Our entire staffstrives to provide an excellent experience for our patients and their families. PLEASE ENSURE YOU FOLLOW-UP PER THE INSTRUCTIONS BELOW! ?? YOUR OPINION IS IMPORTANT TO US! Please complete the survey you may receive by mail or email. Your feedback will be used to make improvements to the healthcare experiences of our patients and their families. Surveys are administered by [email or web address] ?? If further treatment with your primary care physician or another doctor is recommended, it is important for you to keep the appointment. Call your primary care physician or return to the Emergency Department immediately if your condition worsens, fails to improve, or new symptoms develop. If you need to find a doctor, you can call [facility] [email or web address] for a referral at [phone] or toll free at [phone] or log in to [email or web address].. ?? [facility], in keeping with [facility] guidance, no longer requires face masks for staff, patientsor visitors in most situations. Similiar to time spent indoors at other locations, there is the chance that you were exposed to repiratory viruses during your time with us (such as flu or COVID-19). If you develop symptoms concerning for a viral respiratory infection, please seek testing (and treatment if indicated) from your medical provider or home test kit. ?? You can view and manage your care through the patient portal or by using a health care loni of your choosing. [facility] is a website that allows you to securely view your medical information including your hospital discharge summary, office visit summaries, medications and follow-up visits. You can also request appointments, renew medications, and request access to your medical information using a health care loni of your choosing, or just ask a question. You can enroll at [email or web address] or register during your next office visit. You have been discharged from [facility], Patient Care Unit: S1??. If you have any questions regarding these instructions, including results of studies pending, afteryou leave, please call us and we will be happy to assist you 10/06. [facility] Your Care Team Attending Physician Wen Page MD?? Consulting Providers Wen Page MD?? Discharging Providers Wen Page MD Reason for Your Visit pt coming from home pt was found on the floor by her FUR POINTER confused, pt now a/ox4 lethargic, arousbale to verbal stimuli, question of being over medicated hx of seizures per EMS?? Your Diagnosis COPD with emphysema Hypertension History of substance abuse Hx of deep vein thrombosis (DVT) of left lower extremity History of claustrophobia Parkinson's disease Seizure disorder SIRS (systemic inflammatory response syndrome) Hypothermia Hypovolemic shock DOUG (acute kidney injury) Anemia Hyponatremia High anion gap metabolic acidosis Prerenal azotemia Toxic metabolic encephalopathy Anxiety and depression Bipolar disorder Mood disorder Nasal congestion Microcytic anemia Vitamin B12 deficiency Agitation CKD (chronic kidney disease), stage III GERD (gastroesophageal reflux disease) Hypocalcemia Hypophosphatemia Transaminitis Tests Performed Below is a partial list of the tests performed during your hospitalization. You may have had other tests and procedures not included in this list. Please discuss all test results with your provider. Acetaminophen Level Alcohol Level Alk Phos ALT Ammonia Venous Amphetamine Urine Screen ANTI-HBS QUANT ANTI-HEPATITIS C Aspirin Level AST Barbiturate Urine Screen Basic Metabolic Panel Benzodiazepine Urine Screen Beta Hydroxybutyrate Bilirubin Total + Direct Blood Culture Blood Culture #2 Blood Culture 2 Results Blood Culture Result BUN Calcium Level Cannabinoid Urine Screen CBC CBC w/ Differential Cocaine Urine Screen Comprehensive Metabolic Panel CORTISOL COVID-19 (Novel Coronavirus), Rapid PCR CPK Total Only CREATININE Creatinine Urine Electrolytes Folate Level GLUCOSE POC HEP. B SURF. AG HEPATIC FUNCTION PANEL HEPATITIS A AB High??Sensitivity??Troponin T HOLD URINE, HEMATOLOGY Ionized Calcium Lactate Level Lactic Acid Level LFT's Lytes Magnesium Level Methylmalonic Acid Opiate Screen Urine Osmolality Urine OSMOLALITY, SERUM Phosphorus Level PROCALCITONIN PROLACTIN PROLACTIN, MONOMERIC PT (INR) Sodium Urine Syphilis RPR with Rflx to RPR Titer Thiamine Level TSH with T4 Reflex (Adults Only) Urea Nitrogen Urine Urinalysis w/hold for Urine Culture VITAMIN B12 CT Abdomen and Pelvis W/O Contrast CT Cervical Spine W/O Contrast CT Head/Brain W/O Contrast MRI Brain W/O Contrast Portable Chest US Liver ALT?? AST?? Acetaminophen Level?? Add On Lab Order (Lab Add On Order)?? Alk Phos?? Ammonia Venous?? Amphetamine Urine Screen?? Anti-HBS Quant?? BUN?? Barbiturate Urine Screen?? Basic Metabolic Panel?? Benzodiazepine Urine Screen?? Beta Hydroxybutyrate?? Bilirubin Total + Direct?? Blood Culture?? Blood Culture #2?? Blood Culture 2 Results?? Blood Culture Result?? CBC?? CBC w/ Differential?? COVID-19 (Novel Coronavirus), Rapid PCR?? CPK Total Only?? CT Abdomen and Pelvis W/O Contrast?? CT Cervical Spine W/O Contrast?? CT Head/Brain W/O Contrast?? Calcium Level?? Cannabinoid Urine Screen?? Cocaine Urine Screen?? Comprehensive Metabolic Panel?? Cortisol Level (CORTISOL)?? Creatinine?? Creatinine Urine?? Electrolytes?? Ethanol Level (Alcohol Level)?? Folate Level?? Glucose POC?? Hepatic Function Panel?? Hepatitis A, AB (HEPATITIS A AB)?? Hepatitis B Surface Antigen (HEP. B SURF. AG)?? Hepatitis C Ab (ANTI-HEPATITIS C)?? High??Sensitivity??Troponin T?? Hold Urine (HOLD URINE, HEMATOLOGY)?? INR (PT (INR))?? Ionized Calcium?? Lactic Acid Level (Lactate Level)?? MRI Brain W/O Contrast?? Magnesium Level?? Methylmalonic Acid?? Opiate Screen Urine?? Osmolality (OSMOLALITY, SERUM)?? Osmolality Urine?? Phosphorus Level?? Procalcitonin Level (PROCALCITONIN)?? Prolactin Level (PROLACTIN)?? Prolactin Monomeric (PROLACTIN, MONOMERIC)?? Salicylate Level (Aspirin Level)?? Sodium Urine?? Syphilis RPR with Rflx to RPR Titer?? TSH with T4 Reflex (Adults Only)?? Thiamine Level?? US Liver?? Urea Nitrogen Urine?? Urinalysis w/hold for Urine Culture?? Vitamin B12 Level (VITAMIN B12)?? Chest Portable (Portable Chest)?? Primary Care Provider Stefanie Mcgee? Advance Directive Health Care Proxy on File Yes - Health Care Proxy Discharge Vitals Temperature: 97.6 DegF Height: 158 cm Pulse Rate: 81 bpm Weight: 86.9 kg Respiratory Rate: 18 br/min Body Mass Index:??34.81 kg/m2??Critical Systolic Blood Pressure:??140 mm Hg??High Body surface area: 1.95 Diastolic Blood Pressure: 72 mm Hg ?? Oxygen Saturation: 100 % ?? Studies Pending All studies ordered during this hospital stay have been completed unless listed below. Please discuss all pending results with your provider listed above in these instructions. ?? Add On Lab Order (Lab Add On Order)?? What to do next Instructions From Your Doctor ?? Orders??:Cardiac diet :As tolerated? 10/18/24 15:27:00 EST?? Prescriptions??, ??10/18/24 15:27:00 EST?? You Need to Schedule the Following Appointments Follow Up with??Mina LOPES, Zunilda Ernst When:??Within 1 to 2 weeks Why: Will need to review medications Where: [address] [place] [address]- Follow Up with??Mario OSEGUERA, Sudhir Don When:??Within 1 to 2 weeks Why: Will need to review medications Where: [address] [place] [address]- Discharge Medications ASHLY COSTA :1960 Visit Date:10/06/2024 Medications: Please continue your medications until treatment is completed or stopped by your provider. Medications not listed below should be discontinued. Discuss any questions related to medications with your provider. What How Much When Why Instructions Next Dose New Amlodipine (amLODIPine 5 mg oral tablet) 1 tab(s) Oral Daily Duration: 30 Days Pickup at [place] [address] 10/19 New sodium bicarbonate (sodium bicarbonate 650 mg oral tablet) 1 tab(s) Oral Twice a day Duration: 7 Days Pickup at [place] [address] 10/19 Changed Acetaminophen (acetaminophen 500 mg oral tablet) 1 tab(s) Twice a day Cont Changed Albuterol (albuterol (OP)) As needed for Wheezing/Shortness of Breath ContCont Changed Clonazepam (clonazePAM 0.5 mg oral tablet) 1 tab(s) Oral Twice a day Cont Changed Desvenlafaxine (desvenlafaxine 50 mg oral tablet, extended release) 1 tab(s) Oral Daily Cont Changed Gabapentin (gabapentin 100 mg oral capsule) 200 Milligram Oral Daily at Bedtime Cont Changed Magnesium Oxide (magnesium oxide 400 mg oral tablet) 1 tab(s) Daily at Bedtime Cont Changed Primidone (primidone 50 mg oral tablet) 2 tab(s) Oral Twice a day Cont Changed Zolpidem (zolpidem 5 mg oral tablet) 2 tab(s) Oral Daily at Bedtime as needed for as needed for insomnia Cont Changed fluticasone-vilanterol (Breo Ellipta 200 mcg-25 mcg/ inh inhalation powder) 1 puff(s) Inhalation Daily Cont Unchanged Alendronate (alendronate 70 mg oral tablet) 1 tab(s) Oral Every week Cont Cont Unchanged apixaban (Eliquis 5 mg oral tablet) 1 tab(s) Oral Twice a day Cont Unchanged Cholecalciferol (Vitamin D3 2000 intl units oral capsule) 1 capsule Oral Daily Cont Unchanged Cyanocobalamin (cyanocobalamin 1000 mcg/ ml injectable solution) See instructions 1,000 mcg Intramuscular ONCE a month for 4 months starting to be given in office ?? Cont Unchanged DiphenhydrAMINE (Banophen 25 mg oral tablet) 1 tab(s) Oral 3 times a day Unchanged EPINEPHrine (EPINEPHrine 0.3 mg injectable solution) INJECT INTRAMUSCULARLY DIRECTED ON PACKAGE ?? Cont Unchanged Fluticasone Nasal (Flonase 50 mcg/ inh nasal spray) 1 spray(s) Nares, Both Twice a day Nasal congestion COPD with emphysema Cont Unchanged Folic Acid (folic acid 1 mg oral tablet) 1 tab(s) Oral Daily Cont Unchanged Miscellaneous Rx (baclofen 10 mg tablet) TAKE TWO TABLETS EVERY NIGHT NEEDED FOR PAIN ?? Cont Unchanged Montelukast (montelukast 10 mg oral tablet) 1 tab(s) Oral Daily Cont Unchanged Omeprazole (omeprazole 20 mg oral enteric coated capsule) 1 capsule Oral Daily Unchanged Oxybutynin (oxybutynin 5 mg/ 24 hours oral tablet, extended release) 1 tab(s) Oral Daily Cont Unchanged Pseudoephedrine (pseudoephedrine 120 mg oral tablet, extended release) 1 tab(s) Oral Every 12 hours as needed for as needed for cold symptoms Cont Unchanged umeclidinium (Incruse Ellipta 62.5 mcg/ inh inhalation powder) 1 Each Inhalation Every 24 hours doses should be taken at least 24 hours apart ?? Cont Pharmacy Information [facility]: [address] [place], [place] [id number] [phone] ?? What How Much When Why Comments Stop Taking amiTRIPTYLINE (amitriptyline 50 mg oral tablet) 1 tab(s) Oral Daily at Bedtime Stop Taking BusPIRone (busPIRone 5 mg oral tablet) 1 tab(s) Oral Twice a day Stop Taking Carbidopa-Levodopa (carbidopa-levodopa 25 mg-100 mg oral tablet, disintegrating) 2 tab(s) Oral 4 times a day Stop Taking Cetirizine (cetirizine 10 mg oral capsule) 1 capsule Oral Daily Stop Taking Fluticasone (Flovent Diskus 100 mcg/ inh inhalation powder) 1 puff(s) Inhalation Twice a day Stop Taking Furosemide (furosemide 20 mg oral tablet) 1 tab(s) Oral Daily Stop Taking HydrOXYzine (Vistaril pamoate 25 mg oral capsule) See instructions Anxiety Take one table every 8 hours as needed for anxiety or panic attack, As needed for for itching ?? Stop Taking Lisinopril (lisinopril 2.5 mg oral tablet) 1 tab(s) Oral Daily Stop Taking Magnesium Gluconate (magnesium gluconate 500 mg oral tablet) 1 tab(s) Oral Twice a day Stop Taking Topiramate (topiramate 200 mg oral capsule, extended release) 1 capsule Oral Daily Prescription Given During Visit Amlodipine (amLODIPine 5 mg oral tablet) - 1 tablet = 5 mg, By Mouth, Daily, # 30 tablet, 0 Refills, [facility], [address] [place] [phone]?? sodium bicarbonate (sodium bicarbonate 650 mg oral tablet) - 1 tablet = 650 mg, By Mouth, 2 times aday, # 14 tablet, 0 Refills, [facility], [address] [place] [phone]?? Laboratory Results Below is a partial list of the most recent Laboratory test results done prior to this discharge. You may have had other tests and procedures not included in this list. Please discuss all test resultswith your provider. Est Creatinine Clearance - 40.51 mL/min (10/18/2024) Acetaminophen Level (10/06/2024) ? ?Acetaminophen Level - <5 mg/L Alcohol Level (10/06/2024) ???Ethanol, Serum or Plasma - NONE DETECTED Alk Phos (10/15/2024) ???Alkaline Phosphatase - 129 units/L ALT (10/15/2024) ???ALT (SGPT) - 70 units/L Ammonia Venous (10/10/2024) ???Ammonia, Venous - 35 ??mole/L Amphetamine Urine Screen (10/06/2024) ???Amphetamine Screen, Urine - NONE DETECTED ANTI-HBS QUANT (10/11/2024) ???Anti-HBS Quant - 4.63 mIU/mL ANTI-HEPATITIS C (10/11/2024) ???Hepatitis C Ab - NON REACTIVE Aspirin Level (10/06/2024) ? ?Salicylate Level - <0.3 mg/dL AST (10/15/2024) ???AST (SGOT) - 46 units/L Barbiturate Urine Screen (10/06/2024) ???Barbiturate Screen, Urine - POSITIVE Basic Metabolic Panel (10/18/2024) ???Sodium - 140 mmol/L???Potassium - 4.9 mmol/L???Chloride - 108 mmol/L???Bicarbonate Level - 20 mmol/L???Anion Gap - 12???Glucose Level - 130 mg/dL???BUN - 19 mg/dL???Creatinine-Blood - 1.12 mg/dL???Estimated GFR Creatinine - 55 ML/MIN/1.73 M2???Calcium - 9.5 mg/dL Benzodiazepine Urine Screen (10/06/2024) ???Benzodiazepine Screen, Urine - NONE DETECTED Beta Hydroxybutyrate (10/15/2024) ???Beta Hydroxybutyrate - 0.16 mmol/L Bilirubin Total + Direct (10/15/2024) ???Bilirubin, Total - 0.4 mg/dL???Bilirubin, Direct - HEMOLYZED???Bilirubin, Indirect - Unable to calculate Blood Culture (10/06/2024) ???Blood Culture Results - Final report???Blood Culture Specimen Source - BLOOD Blood Culture #2 (10/06/2024) ???Blood Cult 2 Results - Final report???Blood Culture 2 Specimen Source - BLOOD Blood Culture 2 Results (10/06/2024) ???Blood Culture 2 Isolate 1 - Comment Blood Culture Result (10/06/2024) ???Blood Culture Isolate 1 - Comment BUN (10/15/2024) ???BUN - 13 mg/dL Calcium Level (10/09/2024) ???Calcium - 9.3 mg/dL Cannabinoid Urine Screen (10/06/2024) ???Cannabinoid Screen, Urine - NONE DETECTED CBC (10/14/2024) ???WBC - 6.2 k/mm3???RBC - 3.96 m/mm3???Hgb - 12.7 Gm/dL???Hct - 39.0 %???MCV - 98.5 femtoliters???MCH - 32.1 pg???MCHC - 32.6 Gm/dL???Platelet Count - 276 k/mm3???RDW-SD - 49.3 femtoliters???MPV - 10.2 femtoliters???Nucleated RBC (Automated) - 0.0 #/100 WBC'S???Abs. NRBC - 0.0 k/mm3 CBC w/ Differential (10/07/2024) ???WBC - 7.4 k/mm3???RBC - 3.11 m/mm3???Hgb - 10.1 Gm/dL???Hct - 30.5 %???MCV - 98.1 femtoliters???MCH - 32.5 pg???MCHC - 33.1 Gm/dL???Platelet Count - 164 k/mm3???RDW-SD - 48.5 femtoliters???MPV - 10.2 femtoliters???Nucleated RBC (Automated) - 0.0 #/100 WBC'S???Abs. NRBC - 0.0 k/mm3???Abs. Neut - 4.3 k/mm3???Abs. Lymph - 1.5 k/mm3???Abs. [place] - 1.2 k/mm3???Abs. Eo - 0.3 k/mm3???Abs. Baso - 0.1 k/mm3???Neut % - 58.3 %???Lymph % - 20.5 %???[place] % - 16.3 %???Eos % - 3.8 %???Baso % - 0.7 %???Imm Gran - 0.4 %???Abs. Imm Gran - 0.0 k/mm3 Cocaine Urine Screen (10/06/2024) ???Cocaine Metabolite Screen, Urine - NONE DETECTED Comprehensive Metabolic Panel (10/06/2024) ???Sodium - 137 mmol/L???Potassium - 4.1 mmol/L???Chloride - 111 mmol/L???Bicarbonate Level - 15 mmol/L???Anion Gap - 11???Glucose Level - 106 mg/dL???BUN - 32 mg/dL???Creatinine-Blood - 2.13 mg/dL???Estimated GFR Creatinine - 25 ML/MIN/1.73 M2???Calcium - 7.3 mg/dL???Protein, Total - 5.6 Gm/dL???Albumin - 3.3 Gm/dL???AG Ratio - 1.4???Alkaline Phosphatase - 91 units/L???AST (SGOT) - 20 units/L???ALT (SGPT) - 25 units/L???Bilirubin, Total - 0.2 mg/dL CORTISOL (10/06/2024) ???Cortisol Level - 12.0 ??g/dL COVID-19 (Novel Coronavirus), Rapid PCR (10/06/2024) ???COVID-19 by RT-PCR - NEGATIVE CPK Total Only (10/06/2024) ???CK, Total - 73 units/L CREATININE (10/13/2024) ???Creatinine-Blood - 1.03 mg/dL???Estimated GFR Creatinine - 61 ML/MIN/1.73 M2 Creatinine Urine (10/07/2024) ???Creatinine, Urine Random - 52.2 mg/dL Electrolytes (10/15/2024) ???Sodium - 142 mmol/L???Potassium - 4.9 mmol/L???Chloride - 111 mmol/L???Bicarbonate Level - 18 mmol/L???Anion Gap - 13 Folate Level (10/11/2024) ???Folic Acid Level - 30.5 ng/mL GLUCOSE POC (10/06/2024) ???Glucose, POC - 108 mg/dL HEP. B SURF. AG (10/11/2024) ???Hepatitis B Surface Antigen - NON REACTIVE HEPATIC FUNCTION PANEL (10/13/2024) ???Protein, Total - 7.2 Gm/dL???Albumin - 3.8 Gm/dL???Alkaline Phosphatase - 123 units/L???AST (SGOT) - 29 units/L???ALT (SGPT) - 61 units/L???Bilirubin, Total - 0.4 mg/dL???Bilirubin, Direct - HEMOLYZED???Bilirubin, Indirect - Unable to calculate HEPATITIS A AB (10/11/2024) ???Anti-HAV - NEGATIVE High??Sensitivity??Troponin T (10/07/2024) ???High Sensitivity Troponin (HSTnT) - 7 ng/L HOLD URINE, HEMATOLOGY (10/07/2024) ???Hold Urine - Testing Available 24 hours from Time of Collection Ionized Calcium (10/14/2024) ???Calcium, Ionized pH Corrected - 1.28 mmol/L Lactate Level (10/15/2024) ???Lactate - 0.8 mmol/L Lactic Acid Level (10/06/2024) ???Lactate - 0.5 mmol/L LFT's (10/11/2024) ???Protein, Total - 7.3 Gm/dL???Albumin - 3.8 Gm/dL???Alkaline Phosphatase - 141 units/L???AST (SGOT) - 109 units/L???ALT (SGPT) - 127 units/L???Bilirubin, Total - 0.6 mg/dL???Bilirubin, Direct - HEMOLYZED???Bilirubin, Indirect - Unable to calculate Lytes (10/09/2024) ???Sodium - 145 mmol/L???Potassium - 3.9 mmol/L???Chloride - 113 mmol/L???Bicarbonate Level - 20 mmol/L???Anion Gap - 12 Magnesium Level (10/15/2024) ???Magnesium - 2.1 mg/dL Methylmalonic Acid (10/10/2024) ???Methylmalonic Acid Level - 421 Opiate Screen Urine (10/06/2024) ???Opiate Screen, Urine - NONE DETECTED Osmolality Urine (10/07/2024) ???Osmolality, Urine Random - 190 mOsm/kg OSMOLALITY, SERUM (10/06/2024) ???Osmolality - 290 mOs/kg Phosphorus Level (10/15/2024) ???Phosphorus - 4.3 mg/dL PROCALCITONIN (10/06/2024) ???Procalcitonin - 0.11 ng/mL PROLACTIN (10/06/2024) ???Prolactin - 42.1 ng/mL PROLACTIN, MONOMERIC (10/06/2024) ???Percent Monomeric Prolactin - 97 % PT (INR) (10/10/2024) ???INR - 1.1???Protime (PT) - 11.5 seconds Sodium Urine (10/07/2024) ? ?Sodium, Urine Random - <20 mmol/L Syphilis RPR with Rflx to RPR Titer (10/15/2024) ???RPR - Non Reactive Thiamine Level (10/10/2024) ???Thiamine Level - 304.8 TSH with T4 Reflex (Adults Only) (10/06/2024) ???TSH - 1.18 uIU/mL Urea Nitrogen Urine (10/07/2024) ???Urea Nitrogen, Urine Random - 278.8 mg/dL Urinalysis w/hold for Urine Culture (10/06/2024) ???Appear/Color, Urine - YELLOW???Specific [place], Urine - 1.010???pH, Urine - 5.5???Albumin, Urine - NEGATIVE???Glucose, Urine - NEGATIVE???Ketones, Urine - NEGATIVE???Bilirubin, Urine - NEGATIVE???Hemoglobin, Urine - NEGATIVE???Nitrite, Urine - NEGATIVE???Leukocyte, Urine - NEGATIVE???Urobilinogen - NORMAL???WBC's, Urine - 1 /HPF???RBC's, Urine - 1 /HPF???Squamous Epith - 1 /HPF???Transitional Epith - <1 /HPF? ?Hyaline Cast - 3 LPF? ?Mucus - SLIGHT? ?Hold Urine Culture - Testing [id number] hours from time of collection. VITAMIN B12 (10/09/2024) ???Vitamin B12 Level - 446 pg/mL You will be contacted within 72 hours with your results. Allergies (NKA means No Known Allergies) Cats Chocolate Dogs Glutens Lactose Problems Active Problems??(26) Anxiety?? Anxiety and depression?? Bipolar disorder?? Cervical disc disease?? Chronic pain of left wrist?? COPD with emphysema?? Deep vein thrombosis (DVT) of left lower extremity?? Depression?? Encounter to establish care?? Generalized arthritis?? History of alcohol abuse?? History of claustrophobia?? History of substance abuse?? HTN (hypertension)?? Insomnia?? Lumbar disc disease?? Macrocytic anemia with vitamin B12 deficiency?? Memory loss?? Microcytic anemia?? Mood disorder?? Nasal congestion?? Obese class I?? Parkinson's disease?? Seasonal allergies?? Seizure disorder?? Vitamin B12 deficiency?? Education Materials Below is the list of Educational Leaflet Providered with your Discharge Instructions. Valuables and Belongings I fully understand and agree that [facility] accepts no responsibility for all my personal property including clothing, toilet articles, radios, jewelry, dentures, hearing aids, rings, money, or any other property that is in my possession or is brought to me after admission. I understand certain valuables may be placed in a hospital safe for a short period of time. I understand that the hospital is not liable for loss or damage due to accident, fire, or other natural occurrence while said property is in the safe. I accept full responsibility for any personal property that I keep with me, and will not hold the hospital responsible in case of loss or disappearance. I acknowledge that i have been encouraged to send valuables and belongings home. ?? No Valuables/Belongings: No valuables/belongings present Review of Valuable and Belonging List: With patient, With witness Date for Pt to Sign Valuables/Belongings: 10/08/24 18:09:00 ?? Other Discharge Information ? Case Management Discharge Plan?? Discharge Plan?? Discharge Agency Information?? Discharge Level of Care at Discharge: Homehealth/VNA Name of Agency #1: [facility] Discharge VNA/Hospice/Home Care: [facility] [phone] Agency [employer] #1: Intake ?? Service Categories #1: Home health aide, Halfway, Traffic Recorder ?? 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 ?? Pulmonary Rehab Status?? Pulmonary Rehab Discharge Status?? Respiratory Rate: 18 br/min ? Common Emergency Awareness Tips IS IT A STROKE? Act FAST and Check for these signs: FACE Does the face look uneven? ARM Does one arm drift down? SPEECH Does their speech sound strange? TIME Call at any sign of stroke ?? Heart Attack Signs Chest discomfort: Most heart attacks involve discomfort in the center of the chest and lasts more than a few minutes, or goes away and comes back. It can feel like uncomfortable pressure, squeezing, fullness or pain. Discomfort in upper body: Symptoms can include pain or discomfort in one or both arms, back, neck, jaw or stomach. Shortness of breath: With or without discomfort. Other signs: Breaking out in a cold sweat, nausea, or lightheaded. Remember, MINUTES DO MATTER. If you experience any of these heart attack warning signs, call to get immediate medical attention! ?? Smoking can increase your chances of developing chronic health problems and can cause harmful effects to other family members in your house. If you smoke, you are strongly encouraged to quit. Please call [facility] [employer] Link at [phone] or [phone] or log in to [email or web address] for referrals to smoking cessation programs. ?? 770 Suicide & Crisis Lifeline is available 10/06 if you or someone you know needs to find a reason to keep living. By calling 391 you'll be connected to a skilled, trained counselor at a crisis center in your area. INPATIENT DISCHARGE INSTRUCTIONS SIGNATURE ASHLY PENNINGTON Location:[facility] Registration Date and Time:10/06/2024 16:46 EST Primary Care Physician: Stefanei Mcgee, Attending Physician: Wen Page MD, Don MAIERGenaASHLY, have received the above patient education materials/instructions and have verbalized understanding. If ambulance or transport services are being used I further acknowledge being given a choice of service. ?? If you need to contact me, please call me at this number: . Patient/Supervisor Edging Name: Patient/Supervisor Edging Signature: Relationship to Patient: Witness Name/Signature: Date: * Event Display: Provider Clarification Note Please click on pdf link to open report Patient Care team information Care Team Personnel Name: Aleida Sanchez RN Position: [facility] RN Member Role: Primary Care Nurse Name: Rickey Fuchs RN Position: S RN Member Role: Primary Care Nurse Name: Yuni Tuttle RN Position: S RN Member Role: Primary Care Nurse Name: Amber Acuña Position: S RN Member Role: Primary Care Nurse Name: Conor Pierce RN Position: S RN Member Role: Primary Care Nurse Name: Rayo Jeffrey LPN Position: S RN Member Role: Primary Care Nurse Name: Caron Burnham RN Position: S RN Member Role: Primary Care Nurse Name: Eva Gonzalez RN Position: S RN Member Role: Primary Care Nurse Name: Sidra Marrufo RN Position: S RN Member Role: Primary Care Nurse Name: Karey Grace RN Position: S RN Member Role: Primary Care Nurse Name: Aliyah Anderson RN Position: S RN Member Role: Primary Care Nurse Name: Sharmila Soliz RN Position: S RN Member Role: Primary Care Nurse Name: Stefanie Mcgee Position: [facility] PCO Associate Professional Member Role: PCP Address: [address] [place], [place] [id number] Telecom: Name: Ashlee Coon RN Position: [facility] RN Member Role: Primary Care Nurse Name: Kylah Velazquez RN Position: [facility] RN Member Role: Primary Care Nurse Name: Cruz Chen RN Position: [facility] RN Member Role: Primary Care Nurse Name: Landon Flaherty RN Position: [facility] RN Member Role: Primary Care Nurse Care Team Related Persons Name: NATALYA CROWE Name: LUIS OCHOA Insurance Providers Guarantor name: JOSE Health Plan Information #: 1 Payer: [employer] Member Number: [id number] Policy Number: NA Group Number: [facility] Health Plan Information #: 2 Payer: [employer] Member Number: [id number] Policy Number: NA Group Number: NA
== END 2024-10-21 08:03 | disposition home or self-care (01) ==
PROVIDERS: PCP Physician Assistant; Visit Provider Psychiatry & Neurology Neurology
DX: G25.0 Essential tremor (principal); R26.9 Unspecified abnormalities of gait and mobility; F17.200 Nicotine dependence, unspecified, uncomplicated; G47.9 Sleep disorder, unspecified
CPT/HCPCS: 99214

== ENCOUNTER → 2024-10-21 07:20 | Outpatient (BNVA) | payer OTHER, SELFPAY | PROVIDERS: PCP Physician Assistant; Visit Provider Psychiatry & Neurology Neurology | DX: R25.0 Abnormal head movements (principal); R26.9 Unspecified abnormalities of gait and mobility; G47.9 Sleep disorder, unspecified; F17.210 Nicotine dependence, cigarettes, uncomplicated; U07.0 Vaping-related disorder | CPT/HCPCS: 99212 ==

== ENCOUNTER 2024-10-26 13:41 | Outpatient (AMB) | payer OTHER, SELFPAY ==
--- NOTE | 2024-10-26 14:04 | MHC.PC.OV ---
Vital Signs 10/26/24 14:05 Height 5 ft 2 in Weight 187 lb BMI 34.2 BP 132/78 Blood Pressure Location Lt brachial Position Sitting Pulse 85 Pulse Source Pulse Oximeter Pulse Oximetry (%) 96 Oxygen Delivery Method Room Air Intake Visit Reasons: [facility] 10/18 Intake Note: Patient is here for hospital discharge follow up. Patient was discharged from [facility] on 10/18/24. Refueling Ramp Supervisor Required: No Veterinary Medicine Teacher: Not Required per policy Accompanied by: Self / Same As Patient Allergies cat dander [CATS] Allergy (Mild, Verified 10/26/24 15:26) HAYFEVER Chocolate Allergy (Mild, Verified 10/26/24 15:26) HEADACHES dog dander [DOGS] Allergy (Mild, Verified 10/26/24 15:26) HAYFEVER Environmental Allergy (Mild, Uncoded 10/26/24 15:26) HAYFEVER yellow jackets Allergy (Uncoded 10/26/24 15:26) Anaphylaxis Medication List - Last Reconciled 10/26/24 by Minerva Knox PA-C acetaminophen (Pain Relief (acetaminophen)) 500 mg PO BID 90 days [adult pullups As directed] albuterol sulfate 90 mcg/actuation (Ventolin HFA) 2 puffs inhalation QID PRN 30 days alendronate (Fosamax) 70 mg PO QWEEK 12 weeks amlodipine 5 mg PO DAILY 90 days apixaban (Eliquis) 5 mg PO BID 90 days B complex with C 20-folic acid 1 mg (Wescaps) 1 cap PO DAILY 90 days back brace As directed baclofen 20 mg PO BEDTIME [bed pads As directed] cane As directed cholecalciferol (vitamin D3) 50 mcg PO DAILY 90 days clonazepam 0.5 mg PO BID compr.stocking,knee,long,large As directed desvenlafaxine succinate ER 50 mg PO DAILY diaper,brief,adult,disposable As directed diphenhydramine HCl (Banophen) 25 mg PO Q8H 90 days [disposable face masks As directed] disposable gloves As directed epinephrine (EpiPen 2-Kamaljit) 0.3 mg (0.3 mL) IM ONCE PRN 30 days fluticasone furoate-vilanterol 200-25 mcg/dose (Breo Ellipta) 1 inh inhalation DAILY 30 days fluticasone propionate 50 mcg/actuation 1 spray intranasal BID 30 days bfeybfllujk-truggheww-mapaljod 200-62.5-25 mcg (Trelegy Ellipta) 1 inh inhalation DAILY 30 days folic acid 1 mg PO DAILY 90 days gabapentin 200 mg (2 x 100 mg) PO BEDTIME 90 days humidifiers (Cool Mist Humidifier) As directed incontinence pad, liner, disp As directed leg brace (Knee Support Brace) 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 left knee 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 with medial support magnesium oxide 400 mg PO BEDTIME 90 days miscellaneous medical supply 1 ea miscellaneous DAILY 99 days montelukast 10 mg PO DAILY 90 days omeprazole 20 mg PO DAILY 90 days oxybutynin chloride ER 5 mg PO DAILY primidone 100 mg PO TID pseudoephedrine HCl ER 120 mg PO Q12H 30 days [round raised toilet seat As directed] [soft neck brace As directed] umeclidinium 62.5 mcg/actuation (Incruse Ellipta) 1 inh inhalation DAILY 30 days walker (Ultra-Light Rollator misc) As directed zolpidem 5 mg PO BEDTIME Tobacco use date assessed: 10/26/24 Fall risk assessment: No Falls in past year Last assessed Fall Risk: 10/26/24 Dental Screening Dental Screen Date: 02/05/24 HPI HPI Comments History of Present Illness Details DATE OF ADMISSION/DISCHARGE: DUE TO ADMISSION ON 10/06/2024, DATE OF DISCHARGE 10/18/2024 Follow-up from admission at [facility] on 10/18/2020 This is a 64-year-old female with a past medical history of hypertension, CKD stage 3 baseline creatinine 1.1, emphysema/COPD current smoker, seizure disorder, bipolar disorder/depression/anxiety/prior history of alcohol and polysubstance abuse (sober times 11 years), GERD, admitted at [facility] on 10/06/2024 with acute toxic metabolic encephalopathy/agitation/hypotension and found to have DOUG with creatinine peaked at 3.14. At [facility] her toxic metabolic encephalopathy believe to be related to medication accumulation in the setting of DOUG. On presentation patient had a mentation that was waxing and waning with odd affect/disorganized thought process and paranoid ideation. She was tested for HIV and syphilis which were negative. She had a negative MRI. Ativan was tapered off. She was started on her clonazepam. They consulted with Psychiatry on 10/16/2024 and psychiatry recommended discharging the patient from the standpoint okay to restart gabapentin, should resume desvenlafaxine on discharge. They also recommended holding Topamax. They recommended patient following up with her neurologist to review medication as concerned that she had polypharmacy. Patient is here today with her medications in a pillbox. She is requesting to be restarted on her Topamax. She was prescribed Topamax by Sudhir Martin due to her psychiatrist did not want to prescribe this to her per the patient. She is also concerned about her VNA nurse. She does not feel as she needs a VNA nurse to dispense her pills. She currently has a WORKPLACE REHABILITATION OFFICER and has a proximally 60-70 hours by weekly. Her WORKPLACE REHABILITATION OFFICER helps her with ADLs, grocery shopping. Patient has transportation for her appointments set up to insurance. Discharged to/current location: To her own apartment patient lives alone. Diagnosis/procedure: Toxic metabolic encephalopathy believed to be related to medication accumulation in setting of DOUG possibly from polypharmacy New/DC medications: - Patient was discontinued off of Lasix, lisinopril due to DOUG likely can resume once repeat labs with stable creatinine - patient was discontinued off of amitriptyline patient wanted to hold off restarting this medication - patient was discontinued off of Topamax due to concerns for polypharmacy and recommending follow-up with neurologist for restarting these medication or reviewing the medications patient should be on - patient was started on amlodipine 5 mg for hypertension - patient was started on sodium bicarbonate 50 mg b.i.d. for 7 days Pending labs/tests: None How are you feeling? Patient upset about her medication changes would like to be restarted back on Topamax Any pain or discomfort? No Do you have any questions about your condition or discharge instructions? Patient reports that she does not feel as she needs the VNA or a pillbox. She feels as she can take care of her own medications. She reports she also has a WORKPLACE REHABILITATION OFFICER that helps her with her activities of daily living and grocery shopping. She feels like she has enough support. Patient does not want to have a VNA at home. Were you able to get your medications filled? Yes Do you have any questions about your medications? Yes Were you able to schedule your follow-up appointments? Yes If home health was ordered, have they contact you? Yes Any outpatient services, if so, are you scheduled? Yes VNA services and MANAGER AMBULATORY services Are there any additional resources like transportation you might need during her recovery? Not at this time already have this set up Educational needs/resources: None need What support system do you have? MANAGER AMBULATORY Recommendations: Medication review with her neurologist and psychiatrist Labs to be checked basic metabolic panel, LFTs in 1 week from when the patient was discussed [facility] Medical History (Updated 10/26/24 @ 16:18 by Minerva Knox PA-C) Vitamin B12 deficiency Hx of deep venous thrombosis Microcytic anemia COPD with emphysema Prerenal azotemia Toxic metabolic encephalopathy Transaminitis Allergies Chronic allergic rhinitis Asthma-COPD overlap syndrome COPD exacerbation COVID-19 History of abnormal cervical Pap smear Spinal stenosis, cervical region Peripheral polyneuropathy Spondylosis of cervical spine Spondylosis of lumbar spine Cocaine abuse Alcohol abuse Hepatitis HIV (human immunodeficiency virus infection) Heart murmur History of cocaine abuse History of heroin abuse Hydradenitis Former cigarette smoker Recovering alcoholic GERD (gastroesophageal reflux disease) Lumbago with sciatica, left side Arthritis Back pain On anticoagulant therapy DVT (deep venous thrombosis) History of celiac disease Anxiety Panic attacks Depression PTSD (post-traumatic stress disorder) Parkinson disease History of frequent headaches Seizure Asthma Surgical History H/O excision of ganglion cyst Hx of esophagogastroduodenoscopy History of carpal tunnel surgery of left wrist Hx of nasal septoplasty History of hemorrhoidectomy Hx of colonoscopy Family History Mother No problems noted. Social History Housing: Apartment Are you a primary child care associate teacher to a significant other at home: No Do you presently have visiting nurse or other home services: Yes Alcohol intake: former Year quit: 2003 Comment: was seen at [facility]-called for note Patient Tobacco Use Status: Current everyday Tobacco user Tobacco use type: Cigarette Cigarette Packs Per Day: 0.5 Cigarettes Per Day: 10 Years Smoked: 45 e-Cigarette/Vaping Use: Former Use Second Hand Smoke Exposure: Yes service: No Current occupational status: disabled Cognitive needs: Yes (back brace) Hearing needs: No Vision needs: Yes Questionnaire Thrive Questionnaire Date Thrive assessed: 02/05/24 Are you currently unemployed and looking for a job?: Yes LUISA-7 AMB Questionnaire LUISA-7 Date LUISA - 7 assessed: 02/05/24 Source: Developed by Drs. Boris Garcia, Qian Bullard, Hector Herzog and colleagues, with an educational miguel a from [employer]. Physical exam (Primary Care) Vital Signs: Last Vital Signs Pulse 85 10/26/24 14:05 BP 132/78 10/26/24 14:05 Pulse Ox 96 10/26/24 14:05 Oxygen Delivery Method Room Air 10/26/24 14:05 BMI result Body Mass Index 34.2 Tobacco/Smoking Status: Tobacco use Status Tobacco use date assessed 10/26/24 10/26/24 14:06 Patient Tobacco Use Status Current everyday Tobacco 10/26/24 14:06 Tobacco use type Cigarette 10/26/24 14:06 e-Cigarette/Vaping Use Former Use 10/26/24 14:06 Thrive Assessment: Date of Thrive Assessment Date Thrive assessed 02/05/24 10/26/24 14:06 Const Other: Appearance: Alert. Oriented X3. No acute distress. ? Head: Normal external exam. Normocephalic. Atraumatic.? Eyes: PERRLA. EOMI. Conjunctiva and sclera normal. Eyelids normal. ? ENT: Pharynx normal. Uvula midline. Moist mucous membranes. ? Neck: Normal inspection. Neck supple. FROM. No meningeal signs. CVS: Normal heart rate and rhythm. Heart sound normal. No murmurs noted. Pulses normal throughout. Respiratory: No respiratory distress. Painless inspiration. Breath sounds normal. No wheezes/rales/rhonchi noted. Chest nontender. ? No accessory muscle usage noted or decreased air movement noted. Abdomen: Soft and nontender. No distention noted.? No organomegaly noted.? No visible injury noted. Back: ?No CVA tenderness.? Full range of motion noted. Skin: Skin warm and dry.? Normal skin color.? Normal skin turgor. Eczema/psoriasis appearing rash to left lower extremity bauer area. No signs of infection. No drainage. No odor noted. No spreading erythema, streaking, induration, fluctuance noted. No additional rashes/lesions/lacerations noted. Extremities: Extremities exhibit normal range of motion.? Extremities nontender. Neuro: Oriented X 3.? No motor deficit.? No sensory deficit.? Reflexes normal. Coding Level of Care Code TCM High MDM <= 7 Days Complex EM visit Add On G2211 Diagnoses Toxic metabolic encephalopathy G92.8 Transaminitis R74.01 DOUG (acute kidney injury) N17.9 Prerenal azotemia R79.89 Primary hypertension I10 Hypertension type: primary hypertension COPD with emphysema J43.9 Microcytic anemia D50.9 Hx of deep venous thrombosis Z86.718 Vitamin B12 deficiency E53.8 Assessment & Plan Assessment & Plan (1) Toxic metabolic encephalopathy: Code(s): G92.8 - Other toxic encephalopathy Category: Medical Plan: Likely related to medication accumulation in setting of DOUG, patient to continue gabapentin, desvenlafaxine,. Hold Topamax until following up with neurologist and psychiatrist to review medications as concerned that she has polypharmacy (2) Transaminitis: Code(s): R74.01 - Elevation of levels of liver transaminase levels Category: Medical Plan: US liver 10/11- coarse hepatic echotexture likely due to underlying hepatocellular disease. No suspicious lesion. Mild dilated common bile duct. No obstructing lesion identified but the distal duct is obscured. Recommend correlation with LFTs. If concerned for obstruction consider MRCP or ERCP. Abnormally left is mostly hepatocellular pattern. Bilirubin within normal limits. Hepatitis panel negative. Blood cultures have been negative. Will repeat LFTs. (3) DOUG (acute kidney injury): Code(s): N17.9 - Acute kidney failure, unspecified Category: Medical Plan: Improved upon discharge will repeat chemistry. (4) Prerenal azotemia: Code(s): R79.89 - Other specified abnormal findings of blood chemistry Category: Medical Plan: PEAK CREATININE 3.4 AND IMPROVED. Patient is seen by medical record librarians teacher recommendations-kidney function has improved, however bicarb is still low but improving beta hydroxybutyrate 8, lactate within normal limits plan continue to hold Lasix and lisinopril. Encourage oral intake. Continue with sodium bicarb. Repeat labs in 1 week. (5) HTN (hypertension): Code(s): I10 - Essential (primary) hypertension Category: Medical Qualifiers: Hypertension type: primary hypertension Qualified Code(s): I10 - Essential (primary) hypertension Plan: Blood pressure 132/78 today. Will continue with amlodipine 5 mg daily for blood pressure. Lisinopril was discontinued due to DOUG. (6) COPD with emphysema: Code(s): J43.9 - Emphysema, unspecified Category: Medical Plan: on Tiotropium, fluticasone-Vilanterol + PRN albuterol to be continued (7) Microcytic anemia: Code(s): D50.9 - Iron deficiency anemia, unspecified Category: Medical Plan: Closely monitor CBC (8) Hx of deep venous thrombosis: Code(s): Z86.718 - Personal history of other venous thrombosis and embolism Category: Medical Plan: On Eliquis will continue regimen (9) Vitamin B12 deficiency: Code(s): E53.8 - Deficiency of other specified B group vitamins Category: Medical Plan: Closely monitor CBC and labs Orders: Orders Complete Blood Count Auto Diff Today Minerva Knox PA-C Z00.00 - Encounter for general adult medical examination without abnormal findings Comprehensive [place]. Panel Fast Today Minerva Knox PA-C Z00.00 - Encounter for general adult medical examination without abnormal findings Vitamin B12 and Folate Today Minerva Knox PA-C R79.89 - Other specified abnormal findings of blood chemistry Vitamin D 25-OH Total Today Minerva Knox PA-C R79.89 - Other specified abnormal findings of blood chemistry Liver Panel Today Minerva Knox PA-C G92.8 - Other toxic encephalopathy, R74.01 - Elevation of levels of liver transaminase levels, R79.89 - Other specified abnormal findings of blood chemistry Medications: Changed From primidone 100 mg (2 x 50 mg) PO BID 90 days 720 tabs 1RF R56.9 - Unspecified convulsions To primidone 100 mg PO TID R56.9 - Unspecified convulsions Zunilda Enriquez MD
[2024-10-26 14:05] VITALS: BP 132/78; PULSE 85; O2SAT 96; BMI 34.2
== END 2024-10-26 15:14 | disposition home or self-care (01) ==
PROVIDERS: PCP Physician Assistant; Visit Provider Physician Assistant Medical
DX: N17.9 Acute kidney failure, unspecified (principal); J43.9 Emphysema, unspecified; G92.8 Other toxic encephalopathy; R74.01 Elevation of levels of liver transaminase levels; I10 Essential (primary) hypertension; D50.9 Iron deficiency anemia, unspecified; Z86.718 Personal history of other venous thrombosis and embolism; E53.8 Deficiency of other specified B group vitamins

== ENCOUNTER → 2024-10-26 13:41 | Outpatient (BNVA) | payer OTHER, SELFPAY | PROVIDERS: PCP Physician Assistant; Visit Provider Physician Assistant Medical | DX: G92.8 Other toxic encephalopathy (principal); R74.01 Elevation of levels of liver transaminase levels; N17.9 Acute kidney failure, unspecified; R79.89 Other specified abnormal findings of blood chemistry; I10 Essential (primary) hypertension; J43.9 Emphysema, unspecified; D50.9 Iron deficiency anemia, unspecified; E53.8 Deficiency of other specified B group vitamins; Z86.718 Personal history of other venous thrombosis and embolism | CPT/HCPCS: 99212 ==

== ENCOUNTER 2024-11-04 14:04 | Outpatient (REF) | payer OTHER, SELFPAY ==
--- NOTE | ~2024-11-04 | US_ITS ---
EXAMINATION: US TRIPLEX LOWER EXTREMITY, LEFT CLINICAL INFORMATION: Pain in the left lower leg COMPARISON: Left lower extremity duplex on 08/12/2024 TECHNIQUE: Color-flow triplex imaging with spectral analysis and compression Doppler were performed on the left lower extremity. FINDINGS: Respiratory variation, normal compression and augmented flow are noted throughout the left lower extremity. The visualized common femoral vein, superficial femoral vein, profunda femoral vein, popliteal vein and midcalf peroneal and posterior tibial venous segments show no evidence of acute deep venous thrombosis. There is minimal peripheral irregularity in the common femoral and proximal femoral vein. There is no Gibbs's cyst. US/US venous duplex LE LT IMPRESSION: No evidence of acute deep venous thrombosis involving the left lower extremity. 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 Electronically signed by: Whitley Ramires MD 11/04/2024 02:57 PM EST
--- OUTSIDE RECORDS SUMMARY | 2024-11-04 14:09 | XMS_ITS | Clinical Summary ---
Author Organization Unknown Care Team Providers Care Hotel Concierge Name Role Phone RONN DIMAS Unavailable Unavailable LAURA PEREZ, MICHAEL Unavailable Unavailable Payers Payer Name Policy Type Policy Number Effective Date Expira tion Date [facility] [place] [facility] [id number] MEDICAID [facility] [id number] Problems Condition Name Condition Details Condition Category [...] to adverse reactions Active 2023-11 07:20: 58 Medications Ordered Medication Name Filled Medication Name Start Date Stop Date Current Medication? Ordering Clinician Indication Dosage Frequency Signature (SIG) Comments Components acetaminoph en 500 mg tablet 2023-11 00:00: 00 Yes [id number] 1 tablet 2 TIMES DAILY 1 tablet 2 TIMES DAILY (route: oral) Med Classific ation: Analgesic , Anti-infl ammatory or Antipyret ic albuterol sulfate HFA 90 mcg/actuati on aerosol inhaler 2023-11 00:00: 00 Yes [id number] Per instruc tions NEEDED Per instructio ns NEEDED (route: inhalation ) Med Classific ation: Respirato ry Therapy Agents alendronate 70 mg tablet 2023-11 00:00: 00 Yes [id number] 70 mg WEEKLY 70 mg WEEKLY (route: oral) Med Classific ation: Endocrine amlodipine 5 mg tablet 2023-11 00:00: 00 Yes [id number] 1 tablet EVERY AM 1 tablet EVERY AM (route: oral) Med Classific ation: Cardiovas cular Therapy Agents baclofen 10 mg tablet 2023-11 00:00: 00 Yes [id number] 2 tablet EVERY PM 2 tablet EVERY PM (route: oral) Med Classific ation: Locomotor System Banophen 25 mg tablet 2023-11 00:00: 00 Yes [id number] 1 tablet 3 TIMES DAILY 1 tablet 3 TIMES DAILY (route: oral) Med Classific ation: Respirato ry Therapy Agents Breo Ellipta 200 mcg-25 mcg/dose powder for inhalation 2023-11 00:00: 00 Yes [id number] 1 inhalat ion DAILY 1 inhalation DAILY (route: inhalation ) Med Classific ation: Respirato ry Therapy Agents clonazepam 0.5 mg tablet 2023-11 00:00: 00 Yes [id number] 1 tablet 2 TIMES DAILY 1 tablet 2 TIMES DAILY (route: oral) Med Classific ation: Central Nervous System Agents desvenlafax ine fumarate ER 50 mg tablet,exte nded release 24 hr 2023-11 00:00: 00 Yes [id number] 50 mg DAILY 50 mg DAILY (route: oral) Med Classific ation: Central Nervous System Agents Eliquis 5 mg tablet 2023-11 00:00: 00 Yes [id number] 1 tablet 2 TIMES DAILY 1 tablet 2 TIMES DAILY (route: oral) Med Classific ation: Hematolog ical Agents Flonase Allergy Relief 50 mcg/actuati on nasal spray,suspe nsion 2023-11 00:00: 00 Yes [id number] 1 spray 2 TIMES DAILY 1 spray 2 TIMES DAILY (route: nasal) Med Classific ation: Respirato ry Therapy Agents folic acid 1 mg tablet 2023-11 00:00: 00 Yes [id number] 1 tablet EVERY AM 1 tablet EVERY AM (route: oral) Med Classific ation: Electroly te Balance-N utritiona l Products gabapentin 100 mg capsule 2023-11 00:00: 00 Yes [id number] 2 capsule BEDTIME 2 capsule BEDTIME (route: oral) Med Classific ation: Central Nervous System Agents Incruse Ellipta 62.5 mcg/actuati on powder for inhalation 2023-11 00:00: 00 Yes [id number] 1 inhalat ion DAILY 1 inhalation DAILY (route: inhalation ) Med Classific ation: Respirato ry Therapy Agents magnesium 400 mg (as magnesium oxide) tablet 2023-11 00:00: 00 Yes [id number] 1 tablet BEDTIME 1 tablet BEDTIME (route: oral) Med Classific ation: Electroly te Balance-N utritiona l Products montelukast 10 mg tablet 2023-11 00:00: 00 Yes [id number] 1 tablet DAILY 1 tablet DAILY (route: oral) Med Classific ation: Respirato ry Therapy Agents omeprazole 20 mg capsule,del ayed release 2023-11 00:00: 00 Yes [id number] 1 capsule EVERY AM 1 capsule EVERY AM (route: oral) Med Classific ation: Gastroint estinal Therapy Agents oxybutynin chloride ER 5 mg tablet,exte nded release 24 hr 2023-11 00:00: 00 Yes [id number] 1 tablet EVERY AM 1 tablet EVERY AM (route: oral) Med Classific ation: Genitouri nary Therapy primidone 50 mg tablet 2023-11 00:00: 00 Yes [id number] 2 tablet 2 TIMES DAILY 2 tablet 2 TIMES DAILY (route: oral) Med Classific ation: Central Nervous System Agents pseudoephed rine ER 120 mg tablet,exte nded release 2023-11 00:00: 00 Yes [id number] 1 tablet EVERY 12 HOURS 1 tablet EVERY 12 HOURS (route: oral) Med Classific ation: Respirato ry Therapy Agents sodium bicarbonate 650 mg tablet 2023-11 00:00: 00 Yes [id number] 1 tablet 2 TIMES DAILY 1 tablet 2 TIMES DAILY (route: oral) Med Classific ation: Gastroint estinal Therapy Agents Vitamin D3 50 mcg (2,000 unit) capsule 2023-11 00:00: 00 Yes [id number] 1 capsule DAILY 1 capsule DAILY (route: oral) Med Classific ation: Electroly te Balance-N utritiona l Products zolpidem 5 mg tablet 2023-11 00:00: 00 Yes [id number] 2 tablet BEDTIME 2 tablet BEDTIME (route: oral) Med Classific ation: Central Nervous System Agents Vital Signs Vital Name Observation Time Observation [...] HEALTH.] Future Scheduled Test SKILLED NU RSE TO [...] MANAGEMENT.] Future Scheduled Test SKILLED NU RSE FOR O/A AND SKILLED TEACHING OF COPING SKILLS TO MANAGE ANXIETY AND MAINTAIN SAFETY. [code = SKILLED NURSE FOR O/A AND SKILLED TEACHING OF COPING SKILLS TO MANAGE ANXIETY AND MAINTAIN SAFETY.] Future Scheduled Test SKILLED NU RSE FOR O/A AND SKILLED TEACHING RELATED TO MANAGEMENT OF DEPRESSIVE SYMPTOMS AND/OR DEPRESSION. SN TO REPORT SIGNIFICANT CHANGE IN DEPRESSIVE SYMPTOMS TO CLINICAL PROVIDER FOR EARLY INTERVENTION. [code = SKILLED NURSE FOR O/A AND SKILLED TEACHING RELATED TO MANAGEMENT OF DEPRESSIVE SYMPTOMS AND/OR DEPRESSION. SN TO REPORT SIGNIFICANT CHANGE IN DEPRESSIVE SYMPTOMS TO CLINICAL PROVIDER FOR EARLY INTERVENTION.] Future Scheduled Test SKILLED NU RSE FOR O/A OF SELF-CARE DEFICITS AND TO PROVIDE TEACHING RELATED TO SAFE PROVISION OF ADLS. [code = SKILLED NURSE FOR O/A OF SELF-CARE DEFICITS AND TO PROVIDE TEACHING RELATED TO SAFE PROVISION OF ADLS.] Future Scheduled Test SKILLED NU RSE TO PERFORM HOME SAFETY AND FALL ASSESSMENT AND PROVIDE INSTRUCTION TO IMPLEMENT HOME SAFETY AND FALL PREVENTION STRATEGIES. [code = SKILLED NURSE TO PERFORM HOME SAFETY AND FALL ASSESSMENT AND PROVIDE INSTRUCTION TO IMPLEMENT HOME SAFETY AND FALL PREVENTION STRATEGIES.] Future Scheduled Test SKILLED NU RSE FOR OBSERVATION AND ASSESSMENT OF PATIENTS PAIN LEVEL AND EFFECTIVENESS OF PAIN MANAGEMENT REGIMEN. SKILLED NURSE TO INSTRUCT PATIENT/CAREGIVER REGARDING PHARMACOLOGIC AND NON-PHARMACOLOGIC PAIN CONTROL MEASURES. SKILLED NURSE TO REPORT TO PHYSICIAN IF PAIN IS UNCONTROLLED WITH CURRENT PAIN MANAGEMENT REGIMEN. [code = SKILLED NURSE FOR OBSERVATION AND ASSESSMENT OF PATIENTS PAIN LEVEL AND EFFECTIVENESS OF PAIN MANAGEMENT REGIMEN. SKILLED NURSE TO INSTRUCT PATIENT/CAREGIVER REGARDING PHARMACOLOGIC AND NON-PHARMACOLOGIC PAIN CONTROL MEASURES. SKILLED NURSE TO REPORT TO PHYSICIAN IF PAIN IS UNCONTROLLED WITH CURRENT PAIN MANAGEMENT REGIMEN.] Future Scheduled Test PATIENT SUNG S A RISK OF HOSPITALIZATION AND ED USE. SKILLED NURSE TO ESTABLISH SUPPORT MEASURES TO MINIMIZE RISK OF HOSPITALIZATION AND ED USE, AND INSTRUCT PATIENT/CAREGIVER ON METHODS TO REDUCE AVOIDABLE HOSPITALIZATION AND ED USE. [code = PATIENT HAS A RISK OF HOSPITALIZATION AND ED USE. SKILLED NURSE TO ESTABLISH SUPPORT MEASURES TO MINIMIZE RISK OF HOSPITALIZATION AND ED USE, AND INSTRUCT PATIENT/CAREGIVER ON METHODS TO REDUCE AVOIDABLE HOSPITALIZATION AND ED USE.] Future Scheduled Test SKILLED NU RSE TO [...] ACCESS COMMUNITY RESOURCES AND PSYCHOSOCIAL SUPPORT SERVICES.] Future Scheduled Test SKILLED NU RSE TO ASSESS HIGH RISK PATIENT FOR CHANGE IN CONDITION: MOOD/BEHAVIOR, MISSED MEDICATIONS, CHANGE IN LIVING SITUATION, HOMICIDAL IDEATION, ACTIVE SUBSTANCE USE WITH MOOD ALTERING SUBSTANCES INCLUDING BUT NOT LIMITED TO COCAINE, CRACK, HEROIN, FENTANYL AND ENSURE EARLY IDENTIFICATION TO MAINTAIN SAFETY. SKILLED NURSE WILL MAINTAIN SITUATIONAL AWARENESS FOR SAFETY AND WILL NOTIFY CLINICAL DIGITAL ASSOCIATE AND PHYSICIAN/PROVIDER WITH ANY CHANGE IN CONDITION. [...] AWARENESS FOR SAFETY AND WILL NOTIFY CLINICAL DIGITAL ASSOCIATE AND PHYSICIAN/PROVIDER WITH ANY CHANGE IN CONDITION.] Future Scheduled Test SKILLED NU RSE WILL MAINTAIN SITUATIONAL AWARENESS FOR SAFETY AND WILL NOTIFY CLINICAL DIGITAL ASSOCIATE AND PHYSICIAN/PROVIDER WITH ANY CHANGE IN CONDITION. [code = SKILLED NURSE WILL MAINTAIN SITUATIONAL AWARENESS FOR SAFETY AND WILL NOTIFY CLINICAL DIGITAL ASSOCIATE AND PHYSICIAN/PROVIDER WITH ANY CHANGE IN CONDITION.] Goal 2024-11-03 Patient Goal - TO GET BETTER Goal Provider Goal - A PLAN OF CARE WILL BE ESTABLISHED THAT MEETS PATIENT'S PENITENTIARY NEEDS AND INCLUDES PATIENT GOAL FOR HOME HEALTH. Goal Provider Goal - PATIENT WILL COMPLY WITH MEDICATION WHEN SKILLED NURSE PRE-POURS MEDICATION THROUGHOUT CERTIFICATION PERIOD. Goal Provider Goal - ALTERED MENTAL/BEHAVIORAL STATUS WILL BE IDENTIFIED PROMPTLY AND INTERVENTION INITIATED QUICKLY TO MINIMIZE ASSOCIATED RISKS THROUGHOUT CERTIFICATION PERIOD. Goal Provider Goal - PATIENT WILL BE ABLE TO PERFORM DAILY FUNCTIONS AND HAVE OPTIMAL IMPROVEMENT IN LEVEL OF ANXIETY THROUGHOUT CERTIFICATION PERIOD. Goal Provider Goal - PATIENT WILL REMAIN SAFE WITHOUT DECOMPENSATION IN DEPRESSIVE CONDITION, WHILE MAINTAINING OPTIMAL LEVEL OF MENTAL HEALTH AND WELL BEING THROUGHOUT CERTIFICATION PERIOD. Goal Provider Goal - PATIENT/CAREGIVER WILL VERBALIZE/DEMONSTRATE UNDERSTANDING OF SAFE PROVISION OF ADLS BY THE END OF THE CERTIFICATION PERIOD. Goal Provider Goal - PATIENT/CAREGIVER WILL VERBALIZE/DEMONSTRATE EFFECTIVE HOME SAFETY AND FALL PREVENTION STRATEGIES THROUGHOUT CERTIFICATION PERIOD. Goal Provider Goal - PATIENT/CAREGIVER WILL DEMONSTRATE UNDERSTANDING OF PHARMACOLOGIC AND NONPHARMACOLOGIC PAIN CONTROL MEASURES AND PATIENT WILL HAVE IMPROVEMENT IN PAIN INTERFERING WITH ACTIVITY EVIDENCED BY PAIN CONTROLLED AT LEVEL OF 7 OR LESS BY END OF CERTIFICATION PERIOD. Goal Provider Goal - PATIENT WILL HAVE SUPPORT MEASURES ESTABLISHED TO PREVENT HOSPITALIZATION AND ED USE AND PATIENT/CAREGIVER WILL VERBALIZE/DEMONSTRATE METHODS TO REDUCE AVOIDABLE HOSPITALIZATION AND ED USE BY END OF EPISODE. Goal Provider Goal - PATIENT/CAREGIVER WILL VERBALIZE UNDERSTANDING OF EDUCATION PROVIDED ON MEDICATIONS BY THE END OF THE CERTIFICATION PERIOD. Goal Provider Goal - PSYCHOSOCIAL NEEDS WILL BE IDENTIFIED AND PLAN IMPLEMENTED TO MINIMIZE RISK THROUGHOUT CERTIFICATION PERIOD. Goal Provider Goal - HIGH RISK PATIENT WILL REMAIN SAFE IN THE COMMUNITY AND WILL BE FREE FROM DANGER TO SELF AND OTHERS THROUGHOUT CERTIFICATION PERIOD. Goal Provider Goal - PATIENT WILL REMAIN SAFE IN THE COMMUNITY AND WILL BE FREE OF DANGER TO SELF AND OTHERS THROUGHOUT THE CERTIFICATION PERIOD. Reason for Visit INDEPENDENT IN THE HOME Progress Notes Progress Notes <paragraph>[Visit Date: 2023 by TIFFANY MARINA RN]:</paragraph><paragraph>PATIENT PRESENTS TODAY FOR PENITENTIARY SERVICES 10/29/2024. PATIENT IS AO X3 AND FORGETFUL. SHE DENIES SI/HI/AVH. SHE REPORTS SHE HAS AN APPT WITH PCP ON SAT, BUT STATES SHE IS NOT GOING. SN EDUCATED HER ON IMPORTANCE OF KEEPING APPTS SCHEDULED. SHE VERBALIZED PARTIAL UNDERSTANDING OF TEACHING. SHE IS EASILY DISTRACTED DURING VISIT, WALKING AWAY AND SITING ON WALKERBAND RETURNING. DECLINED VITAL SIGNS TODAY. MEDICATIONS PP PER JAN AND SHE IS COMPLIANT PER HER MED WIND TECHNICIAN. LOCKBOX SECURED. DISCUSSED WITH PATIENT STRATEGIES TO DECREASE STRESS AND ANXIETY VERBALIZED UNDERSTANDING.</paragraph> Encounters Start Date/Time End Date/Time Encounter Type Admission Type Attending [facility] Care Facility Care Department Encounter ID Discharge Date Discharge Status Discharge Condition Discharge Reason Percent Goals Met 2024-10-21 00:00:00 2024-11-03 00:00:00 Outpatient NEW ADMISSION MICHAEL SANCHEZ [facility] [id number] 2024-11-03 00:00:00 DISCHARGE TO HOME OR SELF CARE INDEPENDEN T IN THE HOME PER FAMILY REQUEST 42.31
--- OUTSIDE RECORDS SUMMARY | 2024-11-04 14:10 | XMS_ITS | Clinical Summary ---
Author Organization Unknown Care Team Providers Care Sleep Tech Name Role Phone RONN DIMAS Unavailable Unavailable LAURA PEREZ, MICHAEL Unavailable Unavailable Payers Payer Name Policy Type Policy Number Effective Date Expira tion Date [facility] ([facility] [id number] MEDICAID [facility] [id number] Problems Condition Name Condition Details Condition Category [...] 500 mg tablet 2023-11 00:00: 00 Yes [id number] 1 tablet 2 TIMES DAILY 1 tablet 2 TIMES DAILY (route: oral) Med Classific ation: Analgesic , Anti-infl ammatory or Antipyret ic albuterol sulfate HFA 90 mcg/actuati on aerosol inhaler 2023-11 00:00: 00 Yes [id number] Per instruc tions NEEDED Per instructio ns NEEDED (route: inhalation ) Med Classific ation: Respirato ry Therapy Agents alendronate 70 mg tablet 2023-11 00:00: 00 Yes [id number] 70 mg WEEKLY 70 mg WEEKLY (route: oral) Med Classific ation: Endocrine amlodipine 5 mg tablet 2023-11 00:00: 00 Yes [id number] 1 tablet EVERY AM 1 tablet EVERY AM (route: oral) Med Classific ation: Cardiovas cular Therapy Agents baclofen 10 mg tablet 2023-11 00:00: 00 Yes [id number] 2 tablet EVERY PM 2 tablet EVERY PM (route: oral) Med Classific ation: Locomotor System Banophen 25 mg tablet 2023-11 00:00: 00 Yes [id number] 1 tablet 3 TIMES DAILY 1 tablet 3 TIMES DAILY (route: oral) Med Classific ation: Respirato ry Therapy Agents Breo Ellipta 200 mcg-25 mcg/dose powder for inhalation 2023-11 00:00: 00 Yes [id number] 1 inhalat ion DAILY 1 inhalation DAILY (route: inhalation ) Med Classific ation: Respirato ry Therapy Agents clonazepam 0.5 mg tablet 2023-11 00:00: 00 Yes [id number] 1 tablet 2 TIMES DAILY 1 tablet 2 TIMES DAILY (route: oral) Med Classific ation: Central Nervous System Agents desvenlafax ine fumarate ER 50 mg tablet,exte nded release 24 hr 2023-11 00:00: 00 Yes [id number] 50 mg DAILY 50 mg DAILY (route: oral) Med Classific ation: Central Nervous System Agents Eliquis 5 mg tablet 2023-11 00:00: 00 Yes [id number] 1 tablet 2 TIMES DAILY 1 tablet 2 TIMES DAILY (route: oral) Med Classific ation: Hematolog ical Agents Flonase Allergy Relief 50 mcg/actuati on nasal spray,suspe nsion 2023-11 00:00: 00 Yes [id number] 1 spray 2 TIMES DAILY 1 spray 2 TIMES DAILY (route: nasal) Med Classific ation: Respirato ry Therapy Agents folic acid 1 mg tablet 2023-11 00:00: 00 Yes [id number] 1 tablet EVERY AM 1 tablet EVERY AM (route: oral) Med Classific ation: Electroly te Balance-N utritiona l Products gabapentin 100 mg capsule 2023-11 00:00: 00 Yes [id number] 2 capsule BEDTIME 2 capsule BEDTIME (route: oral) Med Classific ation: Central Nervous System Agents Incruse Ellipta 62.5 mcg/actuati on powder for inhalation 2023-11 00:00: 00 Yes [id number] 1 inhalat ion DAILY 1 inhalation DAILY (route: inhalation ) Med Classific ation: Respirato ry Therapy Agents magnesium 400 mg (as magnesium oxide) tablet 2023-11 00:00: 00 Yes [id number] 1 tablet BEDTIME 1 tablet BEDTIME (route: oral) Med Classific ation: Electroly te Balance-N utritiona l Products montelukast 10 mg tablet 2023-11 00:00: 00 Yes [id number] 1 tablet DAILY 1 tablet DAILY (route: oral) Med Classific ation: Respirato ry Therapy Agents omeprazole 20 mg capsule,del ayed release 2023-11 00:00: 00 Yes [id number] 1 capsule EVERY AM 1 capsule EVERY AM (route: oral) Med Classific ation: Gastroint estinal Therapy Agents oxybutynin chloride ER 5 mg tablet,exte nded release 24 hr 2023-11 00:00: 00 Yes [id number] 1 tablet EVERY AM 1 tablet EVERY AM (route: oral) Med Classific ation: Genitouri nary Therapy primidone 50 mg tablet 2023-11 00:00: 00 Yes [id number] 2 tablet 2 TIMES DAILY 2 tablet 2 TIMES DAILY (route: oral) Med Classific ation: Central Nervous System Agents pseudoephed rine ER 120 mg tablet,exte nded release 2023-11 00:00: 00 Yes [id number] 1 tablet EVERY 12 HOURS 1 tablet EVERY 12 HOURS (route: oral) Med Classific ation: Respirato ry Therapy Agents sodium bicarbonate 650 mg tablet 2023-11 00:00: 00 Yes [id number] 1 tablet 2 TIMES DAILY 1 tablet 2 TIMES DAILY (route: oral) Med Classific ation: Gastroint estinal Therapy Agents Vitamin D3 50 mcg (2,000 unit) capsule 2023-11 00:00: 00 Yes [id number] 1 capsule DAILY 1 capsule DAILY (route: oral) Med Classific ation: Electroly te Balance-N utritiona l Products zolpidem 5 mg tablet 2023-11 00:00: 00 Yes [id number] 2 tablet BEDTIME 2 tablet BEDTIME (route: [...] AWARENESS FOR SAFETY AND WILL NOTIFY CLINICAL ESTATE CONSERVATOR AND PHYSICIAN/PROVIDER WITH ANY CHANGE IN CONDITION. [...] AWARENESS FOR SAFETY AND WILL NOTIFY CLINICAL ESTATE CONSERVATOR AND PHYSICIAN/PROVIDER WITH ANY CHANGE IN CONDITION.] Future Scheduled Test SKILLED NU RSE WILL MAINTAIN SITUATIONAL AWARENESS FOR SAFETY AND WILL NOTIFY CLINICAL ESTATE CONSERVATOR AND PHYSICIAN/PROVIDER WITH ANY CHANGE IN CONDITION. [code = SKILLED NURSE WILL MAINTAIN SITUATIONAL AWARENESS FOR SAFETY AND WILL NOTIFY CLINICAL ESTATE CONSERVATOR AND PHYSICIAN/PROVIDER WITH ANY CHANGE IN CONDITION.] Goal 2024-11-03 Patient Goal - TO GET BETTER Goal Provider Goal - A PLAN OF CARE WILL BE ESTABLISHED THAT MEETS PATIENT'S CORRECTION NEEDS AND INCLUDES PATIENT GOAL FOR HOME [...] Progress Notes <paragraph>[Visit Date: 2023 by TIFFANY MRAINA RN]:</paragraph><paragraph>PATIENT PRESENTS TODAY FOR CORRECTION SERVICES 10/29/2024. PATIENT IS AO X3 AND [...] AND SHE IS COMPLIANT PER HER MED DISPLAY SCREEN FABRICATOR. LOCKBOX SECURED. DISCUSSED WITH PATIENT STRATEGIES TO DECREASE STRESS AND ANXIETY VERBALIZED UNDERSTANDING.</paragraph> Encounters Start Date/Time End Date/Time Encounter Type Admission Type Attending [facility] Care Facility Care Department Encounter ID Discharge Date Discharge Status Discharge Condition Discharge Reason Percent Goals Met 2024-10-21 00:00:00 2024-11-03 00:00:00 Outpatient NEW ADMISSION MICHAEL SANCHEZ [facility] [id number] 2024-11-03 00:00:00 DISCHARGE TO HOME OR SELF CARE INDEPENDEN T IN THE HOME PER FAMILY REQUEST 42.31
== END 2024-11-04 14:05 | disposition home or self-care (01) ==
LOC: HO.US 14:04
PROVIDERS: PCP Physician Assistant; Visit Provider Physician Assistant
DX: M79.662 Pain in left lower leg (principal); Z86.718 Personal history of other venous thrombosis and embolism
CPT/HCPCS: 93971

== ENCOUNTER 2024-11-12 08:33 | Outpatient (REF) | payer OTHER, SELFPAY ==
[2024-11-12 08:58] LABS: MANUAL DIFF FLAG NO
[2024-11-12 09:15] LABS: Basophils Absolute Auto 0.1 X10*3/uL (0.0-0.2); Eosinophils Absolute Auto 0.4 X10*3/uL (0.0-0.4); Eosinophils Percent Auto 6.9 % (0-4); Hematocrit 36.7 % (37.0-47.0); Hemoglobin 12.3 g/dl (12.0-16.0); Imm Gran Abs Auto 0.02 X10*3/uL (0.00-0.03); Imm Gran Pct Auto 0.3 % (0.0-0.4); Lymphocytes Absolute Auto 1.5 X10*3/uL (1.2-4.9); Lymphocytes Percent Auto 26.5 % (20-40); Mean Corpuscular HGB Conc 33.5 g/dl (31.0-35.0); Mean Corpuscular Hemoglobin 33.1 pg (27.0-33.0); Mean Corpuscular Volume 98.7 fL (80.0-98.0); Mean Platelet Volume 9.8 fL (9.4-12.3); Monocytes Absolute Auto 0.9 X10*3/uL (0.1-1.2); Monocytes Percent Auto 15.1 % (2-11); Neutrophils Absolute Auto 2.9 x10*3/uL (2.0-8.3); Neutrophils Percent Auto 50.2 % (45-73); Platelet Count 240 X10*3/uL (160-400); Red Blood Count 3.72 X10*6/uL (4.20-5.50); Red Cell Distribution Width 13.6 % (11.0-16.0); White Blood Count 5.8 X10*3/uL (4.8-10.8)
[2024-11-12 09:43] LABS: Alanine Aminotransferase 17 U/L (0-31); Alkaline Phosphatase 74 U/L (39-117); Anion Gap 7 (12-20); Aspartate Amino Transferase 21 U/L (5-31); Bilirubin Direct < 0.2 mg/dL (0.0-0.5); Bilirubin Total 0.2 mg/dL (0.0-1.0); Blood Urea Nitrogen 14 mg/dL (9-16); Calcium 8.8 mg/dL (8.4-10.2); Carbon Dioxide 28 mmol/L (22-29); Chloride 110 mmol/L (96-108); Estimated Glomerular Filt Rate 56; Glucose Fasting 98 mg/dL (60-99); Potassium 4.3 mmol/L (3.3-5.1); Sodium 141 mmol/L (135-145)
[2024-11-12 10:50] LABS: Folate > 20.0 ng/mL (> or = 4.0); Vitamin B12 298 pg/mL (200-900); Vitamin D 25-OH Total 57.7 ng/mL (>30)
== END 2024-11-12 08:34 | disposition home or self-care (01) ==
LOC: HO.LAB 08:33
PROVIDERS: PCP Physician Assistant; Visit Provider Physician Assistant Medical
DX: Z00.00 Encounter for general adult medical examination without abnormal findings (principal); R74.01 Elevation of levels of liver transaminase levels; G92.8 Other toxic encephalopathy; R79.89 Other specified abnormal findings of blood chemistry
CPT/HCPCS: 36415; 80053; 80076; 82248; 82306; 82607; 82746; 85025

== ENCOUNTER 2024-11-30 12:48 | Outpatient (AMB) | payer OTHER, SELFPAY ==
--- NOTE | 2024-11-30 12:50 | A.OFFPC_ITS ---
Vital Signs 11/30/24 13:04 Height 5 ft 2 in Weight 205 lb 4 oz BMI 37.5 BP 118/66 Blood Pressure Location Lt brachial Position Sitting Pulse 80 Pulse Source Pulse Oximeter Pulse Oximetry (%) 100 Oxygen Delivery Method Room Air Intake Visit Reasons: med f/u Site Coordinator Required: No Accompanied by: Self / Same As Patient Allergies cat dander [CATS] Allergy (Mild, Verified 11/30/24 13:10) HAYFEVER Chocolate Allergy (Mild, Verified 11/30/24 13:10) HEADACHES dog dander [DOGS] Allergy (Mild, Verified 11/30/24 13:10) HAYFEVER Environmental Allergy (Mild, Uncoded 11/30/24 13:10) HAYFEVER yellow jackets Allergy (Uncoded 11/30/24 13:10) Anaphylaxis Medication List - Last Reconciled 11/30/24 by Sudhir Martni PA-C acetaminophen (Pain Relief (acetaminophen)) 500 mg PO BID 90 days [adult pullups As directed] albuterol sulfate 90 mcg/actuation (Ventolin HFA) 2 puffs inhalation QID PRN 30 days alendronate (Fosamax) 70 mg PO QWEEK 12 weeks amlodipine 5 mg PO DAILY 90 days apixaban (Eliquis) 5 mg PO BID 90 days B complex with C 20-folic acid 1 mg (Wescaps) 1 cap PO DAILY 90 days back brace As directed baclofen 20 mg PO BEDTIME [bed pads As directed] cane As directed cholecalciferol (vitamin D3) 50 mcg PO DAILY 90 days clonazepam 0.5 mg PO BID compr.stocking,knee,long,large As directed desvenlafaxine succinate ER 50 mg PO DAILY diaper,brief,adult,disposable As directed diphenhydramine HCl (Banophen) 25 mg PO Q8H 90 days [disposable face masks As directed] disposable gloves As directed epinephrine (EpiPen 2-Kamaljit) 0.3 mg (0.3 mL) IM ONCE PRN 30 days fluticasone furoate-vilanterol 200-25 mcg/dose (Breo Ellipta) 1 inh inhalation DAILY 30 days fluticasone propionate 50 mcg/actuation 1 spray intranasal BID 30 days wzpcpbhutfx-wvruyduba-gbkssrzo 200-62.5-25 mcg (Trelegy Ellipta) 1 inh inhalation DAILY 30 days folic acid 1 mg PO DAILY 90 days gabapentin 400 mg PO DAILY 30 days humidifiers (Cool Mist Humidifier) As directed incontinence pad, liner, disp As directed leg brace (Knee Support Brace) 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 knee 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 with medial support loperamide 2 mg PO Q8H PRN 7 days magnesium oxide 400 mg PO BEDTIME 90 days miscellaneous medical supply 1 ea miscellaneous DAILY 99 days montelukast 10 mg PO DAILY 90 days omeprazole 20 mg PO DAILY 90 days oxybutynin chloride ER 5 mg PO DAILY primidone 100 mg PO TID pseudoephedrine HCl ER 120 mg PO Q12H 30 days [round raised toilet seat As directed] [soft neck brace As directed] triamcinolone acetonide 0.1% 1 appl topical BID 30 days umeclidinium 62.5 mcg/actuation (Incruse Ellipta) 1 inh inhalation DAILY 30 days walker (Ultra-Light Rollator misc) As directed zolpidem 5 mg PO BEDTIME Tobacco use date assessed: 10/26/24 Dental Screening Dental Screen Date: 02/05/24 HPI med f/u HPI Details Patient is a 64-year-old female here today for a follow-up visit. ? Patient has a past medical history significant for polysubstance abuse, spinal stenosis, anxiety, depression, pernicous anemia, DVT ( left leg), parkinsons.? Concern--> patient reports over the last several months feeling very lethargic and fatigued after she eats. She reports she is able to go to sleep at night find though has some trouble staying asleep. Tobacco dependency: Patient continues to smoke. Has tried Chantix though not effective She does understand she needs to quit smoking .. Obese: Has unfortunately gained weight since last office visit. She reports she has been trying a low-calorie diet and does do as much physical activity as she can given her tremor disorder and Parkinson's disorder. Of note have noticed lower extremity swelling thus will use furosemide for the next 2 weeks to help some of the fluid retention. .. Allergic rhinitis:? Continues to suffer allergy symptoms. Continues on Benadryl, nasal sprays and decongestants.? She reports the changes seasons are difficult. She reports she was on allergy injections in the past which were helping her with rhinitis and sinusitis. She has an upcoming visit with the ENT specialist about her nasal condition. She reports she has nasal polyps. Of note has a history of intranasal cocaine use . .. PTSD: Is followed by a psychiatrist and a mental health therapist. Was using Topamax for her PTSD disorder though does admit to taking a bit more Topamax to help her with weight loss though had caused some disorientation and an acute kidney injury leading to hospital admission recently. .. Lumbar Spinal stenosis: Is seeing pain speacialist here at [place] and has started on SPRINT Spinal stimulator which has offered her excellent pain relief in her lumbar spine..? She is now wearing a lumbar support brace. Has followed up with a neurosurgeon for her neck pain though was not a surgical candidate.? Currently a recovering addict and does not use any pain medication besides Tylenol at this time. .. Parkinsons: Sees a neurologist, has been started on primidone. Apparently carbidopa levodopa has been discontinued. ? Also followed for a seizure disorder and denies any recent seizure activity. .? She reports her balance has gotten wo rse, does report recent fall.? She is interested in seeing a physical therapist for balance training. .. Heart? murmur/ Atypical chest pain : IS followed by Sales Associate Cashier ( Dr. Alvares ), Cardiac stress test normal, ECHO showing low/ normal EF. .. h/o polysubtance abuse ( alcohol, crack cocain) : Has been sober since 2013.? She is in a fellowship (AA/ NA) . Major depressive disorder/ generalized anxiety disorder:? She is followed psychiatrist now who manages her mental health medications. She feels her depression is fairly well managed at this time.?? She reports he continues to have trouble with sleep even with use of trazodone, Benadryl and gabapentin at night.?. ? [facility] Medical History Vitamin B12 deficiency Hx of deep venous thrombosis Microcytic anemia COPD with emphysema Prerenal azotemia Toxic metabolic encephalopathy Transaminitis Allergies Chronic allergic rhinitis Asthma-COPD overlap syndrome COPD exacerbation COVID-19 History of abnormal cervical Pap smear Spinal stenosis, cervical region Peripheral polyneuropathy Spondylosis of cervical spine Spondylosis of lumbar spine Cocaine abuse Alcohol abuse Hepatitis HIV (human immunodeficiency virus infection) Heart murmur History of cocaine abuse History of heroin abuse Hydradenitis Former cigarette smoker Recovering alcoholic GERD (gastroesophageal reflux disease) Lumbago with sciatica, left side Arthritis Back pain On anticoagulant therapy DVT (deep venous thrombosis) History of celiac disease Anxiety Panic attacks Depression PTSD (post-traumatic stress disorder) Parkinson disease History of frequent headaches Seizure Asthma Surgical History H/O excision of ganglion cyst Hx of esophagogastroduodenoscopy History of carpal tunnel surgery of left wrist Hx of nasal septoplasty History of hemorrhoidectomy Hx of colonoscopy Family History Mother No problems noted. Social History Housing: Apartment Are you a primary career counselor to a significant other at home: No Do you presently have visiting nurse or other home services: Yes Alcohol intake: former Year quit: 2003 Comment: was seen at [facility]-called for note Patient Tobacco Use Status: Current everyday Tobacco user Tobacco use type: Cigarette Cigarette Packs Per Day: 0.5 Cigarettes Per Day: 10 Years Smoked: 45 Packs Per Year: 23 Packs per year/per ci.50 e-Cigarette/Vaping Use: Former Use Second Hand Smoke Exposure: Yes service: No Current occupational status: disabled Cognitive needs: Yes (back brace) Hearing needs: No Vision needs: Yes Questionnaire PHQ-9 Over the last 2 weeks, how often have you been bothered by any of the following problems? 1. Little interest or pleasure in doing things: not at all 2. Feeling down, depressed, or hopeless: several days (current in treatment and taking medication) 3. Trouble falling or staying asleep, or sleeping too much: not at all 4. Feeling tired or having little energy: not at all 5. Poor appetite or overeating: not at all 6. Feeling bad about yourself - or that you are a failure or have let yourself or your family down: not at all 7. Trouble concentrating on things, such as reading the newspaper or watching television: not at all 8. Moving or speaking so slowly that other people could have noticed. Or the opposite - being so fidgety or restless that you have been moving around a lot more than usual: not at all 9. Thoughts that you would be better off or of hurting yourself in some way: not at all Total score: 1 Depression Screening Interpretation: Negative Depression Screening Done: Yes 67049 - PHQ-9 Billing: Yes Source: Developed by Drs. Boris Garcia, Qian Bullard, Hector Herzog and colleagues, with an educational miguel a from [employer]. Thrive Questionnaire Date Thrive assessed: 11/30/24 I am a: Patient What is your living situation today?: I have a steady place to live Within the past 12 months, did the food you bought not last and you didn't have the money to get more?: Never true Within the past 12 months, did you worry whether your food would run out before you got money to buy more?: Never true Do you have trouble paying for medicines?: No Do you have trouble getting transportation to medical appointments?: No Do you have trouble paying your heating and electricity bill?: No Do you have trouble taking care of your child, family member or friend?: No Do you have trouble with day-to-day activities such as bathing, preparing meals, shopping, managing finances, etc.?: No Are you currently unemployed and looking for a job?: No Are you interested in more education?: No Please select the resources that you would like help with: None Currently or been in a relationship where the following occur: No concerns r eported THRIVE Score: 0 AUDIT C Alcohol Use Questionnaire (AUDIT-C) 1. How often do you have a drink containing alcohol?: Never 3. How often do you have six or more drinks on one occasion?: Never Total Score: 0 LUISA-7 AMB Questionnaire LUISA-7 Date LUISA - 7 assessed: 11/30/24 Feeling nervous, anxious, or on edge: 0 = Not at all Not being able to stop or control worryin = Not at all Worrying too much about different things: 0 = Not at all Trouble relaxin = Not at all Being so restless that it is hard to sit still: 0 = Not at all Becoming easily annoyed or irritable: 0 = Not at all Feeling afraid as if something awful might happen: 0 = Not at all Total LUISA-7 score (0-4 normal; 5-9 mild; 10-14 moderate; 15-21 severe): 0 Source: Developed by Drs. Boris Garcia, Qian Bullard, Hector Herzog and colleagues, with an educational miguel a from [employer]. LUISA-7 Assessment Billing LUISA-7 Assessment Tool: LUISA-7 Assessment 12729 Review of Systems Const Denies headache(s) Eyes Denies loss of vision ENT Denies vertigo, Denies dizziness, Denies headache(s) and Denies sore throat Card Denies chest pain, Denies leg edema and Denies lightheadedness Resp Denies cough, Denies hemoptysis and Denies wheezing GI Denies abdominal pain, Denies melena, Denies constipation, Denies diarrhea and Denies vomiting Denies urinary frequency, Denies dysuria and Denies urinary urgency Musc Denies arthralgias, Denies joint swelling, Denies numbness and Denies tingling Neuro Denies Abnormal speech present, Denies behavioral changes, Denies vertigo, Denies dizziness, Denies headache(s), Denies loss of vision, Denies memory loss, Denies numbness and Denies tingling Psych Denies anxiety, Denies behavioral changes, Denies depression, Denies memory loss and Denies panic attacks Carlos/Lymph Denies easy bleeding and Denies easy bruising Aller/Immun Denies wheezing Physical exam (Primary Care) Vital Signs: Last Vital Signs Pulse 80 11/30/24 13:04 BP 118/66 11/30/24 13:04 Pulse Ox 100 11/30/24 13:04 Oxygen Delivery Method Room Air 11/30/24 13:04 BMI result Body Mass Index 37.5 BMI Assessment/Plan discussion: High BMI High, discussed plan: lifestyle, weight reduction, dietary and physical activity Tobacco/Smoking Status: Tobacco use Status Tobacco use date assessed 10/26/24 11/30/24 12:53 Patient Tobacco Use Status Current everyday Tobacco 11/30/24 12:53 Tobacco use type Cigarette 11/30/24 12:53 e-Cigarette/Vaping Use Former Use 11/30/24 12:53 Are you ready to quit: No Tobacco cessation counseling provided: Yes Items discussed: Nicotine replacement and QuitWorks Relapse Prevention: discussed the importance of a supportive environment, discussed negative mood or depression after quitting, weight gain after smoking is common and discussed dietary, exercise and/or lifestyle changes Number of minutes spent counselin CPT code: 10681 - 4-10 Minutes PHQ-9: PHQ-9 Score PHQ-9: Total score 1 11/30/24 13:11 Depression Screening Interpretation: Negative Thrive Assessment: Date of Thrive Assessment Date Thrive assessed 11/30/24 11/30/24 12:53 Currently or been in a relationship where the following occur: No concerns reported Const General: healthy appearing, no acute distress, alert and awake Nutritional Appearance: well nourished Orientation/consciousness: oriented to person, oriented to place and oriented to time HENMT Ears: TM's normal bilaterally General nose exam: Normal nasal mucous membranes and turbinates present Eyes Conjunctivae: conjunctivae normal Sclerae: sclerae normal Pupils: Equal, round and reactive pupils present Neck Neck: Yes no lymphadenopathy and Yes no JVD Thyroid: Thyroid normal Carotids: no bruits Resp Effort & Inspection: normal respiratory effort and not tachypneic Auscultation: no crackles, no rales, no rhonchi and no wheezes Cardio Rate: regular rate Rhythm: regular rhythm Heart sounds: no murmurs and normal S1 and S2 GI Palpation (GI): Soft to palpation, nontender, no hepatomegaly and no splenomegaly Auscultation: normal bowel sounds Skin General skin exam: no rashes or lesions noted and dry skin Neuro General: oriented to person, oriented to place and oriented to time Cranial nerves: Yes Equal, round and reactive pupils present Speech: No Abnormal speech present Gait exam (Neuro): Normal gait present Motor exam (neuro): no tremor noted Extrem Right upper extremity: full ROM Left upper extremity: full ROM Right lower extremity: full ROM and edema Left lower extremity: full ROM and edema Psych Mental Status: mental status grossly normal Speech and movement: Normal speech and movement present Affect: normal affect Attitude: cooperative Thought process: Normal thought process present Coding Level of Care Code Est Pt Level 4 (92962) Diagnoses Class 2 obesity E66.812 MDD (major depressive disorder), recurrent episode, moderate F33.1 Simple chronic bronchitis J41.0 COPD type: chronic bronchitis Chronic bronchitis type: simple Parkinson's disease with dyskinesia without fluctuating manifestations G20.B1 Dyskinesia presence: with dyskinesia Fluctuating manifestations: without fluctuating manifestations Primary hypertension I10 Hypertension type: primary hypertension Nasal polyps J33.9 Tobacco dependence F17.200 Additional Codes LUISA-7 Assessment Billing - LUISA-7 Assessment Tool: LUISA-7 Assessment 41013 ([id number]) PHQ-9 - 98514 - PHQ-9 Billing: Yes ([id number]) Vital Signs *Quality* - CPT code: 90389 - 4-10 Minutes ([id number]) Assessment & Plan Assessment & Plan (1) Class 2 obesity: Code(s): E66.812 - Obesity, class 2 Category: Medical Plan: Patient does understand her BMI is over 35 and will work on being more physically and adapt to better eating habits to reduce her weight. She is asking for GLP 1 to help her lose weight which is reasonable choice as she has not been able to be physically active as she needs to be due to her tremor and parkinsonian syndrome. (2) MDD (major depressive disorder), recurrent episode, moderate: Code(s): F33.1 - Major depressive disorder, recurrent, moderate Category: Medical Plan: Patient continues to follow a mental health therapist and a psychiatrist who manage her mental health medication with the exception for Topamax which she now has I as her PCP managing. She uses Topamax apparently for PTSD. She uses 200 mg twice a day of Topamax and she feels it is helpful on reducing her weight as well. (3) COPD (chronic obstructive pulmonary disease): Code(s): J44.9 - Chronic obstructive pulmonary disease, unspecified Category: Medical Qualifiers: COPD type: chronic bronchitis Chronic bronchitis type: simple Qu alified Code(s): J41.0 - Simple chronic bronchitis Plan: She reports her breathing has been fairly stable though still has wheezing from time to time. Unfortunately still smokes 4 or 5 cigarettes per day. Offered her nicotine replacement though she declines. Has tried Chantix in the past though has not found it effective for her. (4) Parkinson disease: Code(s): G20 - Parkinson's disease Category: Medical Qualifiers: Dyskinesia presence: with dyskinesia Fluctuating manifestations: without fluctuating manifestations Qualified Code(s): G20.B1 - Parkinson's disease with dyskinesia, without mention of fluctuations Plan: Continues to follow neurology and continues on primidone for her tremors. She reports her tremors have gotten a bit worse over the last several months. She has not had any recent falls though does use a walker for ambulation assistance. (5) HTN (hypertension): Code(s): I10 - Essential (primary) hypertension Category: Medical Qualifiers: Hypertension type: primary hypertension Qualified Code(s): I10 - Essential (primary) hypertension Plan: Patient's blood pressure acceptable today in office. It is unclear if she does not amlodipine 5 mg or lisinopril at this point. We did discuss the possible side effect of amlodipine being pedal edema. She will call back to let us know what blood pressure medication she is using. Otherwise goal blood pressures to be below 140/90 (6) Nasal polyps: Code(s): J33.9 - Nasal polyp, unspecified Category: Medical Plan: Has upcoming appointment with the ENT specialist and she anticipates getting procedure to remove nasal polyps. (7) Tobacco dependence: Code(s): F17.200 - Nicotine dependence, unspecified, uncomplicated Category: Medical Plan: As per HPI patient unfortunately continues to smoke cigarettes daily. She has tried nicotine replacement and Chantix in the past though has been ineffective. Medications: New tirzepatide (weight loss) (Zepbound) for 4 weeks 2.5 mg (0.5 mL) subcut QWEEK 2 mL 0RF 4 weeks E66.812 - Obesity, class 2, I10 - Essential (primary) hypertension oxybutynin chloride ER 10 mg PO DAILY 30 tabs 3RF 30 days R32 - Unspecified urinary incontinence furosemide 20 mg PO DAILY 14 tabs 0RF 14 days M79.89 - Other specified soft tissue disorders topiramate 200 mg PO BID 180 tabs 1RF 90 days F33.1 - Major depressive disorder, recurrent, moderate Refilled humidifiers (Cool Mist Humidifier) As directed 1 ea 0RF J33.9 - Nasal polyp, unspecified, J43.9 - Emphysema, unspecified Discontinued fluticasone propionate 50 mcg/actuation administer into each nostril Discontinued Reason: Doctor's Order 1 spray intranasal BID 30 days 16 grams 3RF T78.40XA - Allergy, unspecified, initial encounter oxybutynin chloride ER Discontinued Reason: Doctor's Order 5 mg PO DAILY 30 tabs 2RF pseudoephedrine HCl ER Discontinued Reason: Doctor's Order 120 mg PO Q12H 30 days 60 tabs 2RF
[2024-11-30 13:04] VITALS: BP 118/66; PULSE 80; O2SAT 100; BMI 37.5
--- OUTSIDE RECORDS SUMMARY | 2024-11-30 14:58 | XMS_ITS | Clinical Summary ---
Author Organization Unknown Care Team Providers Care Barrel Racer Name Role Phone RONN DIMAS Unavailable Unavailable LAURA PEREZ, MICHAEL Unavailable Unavailable Payers Payer Name Policy Type Policy Number Effective Date Expira tion Date [facility] [id number] MEDICAID [facility] [id number] Problems Condition Name Condition Details Condition Category [...] 500 mg tablet 2023-11 00:00: 00 Yes [id number] 1 tablet 2 TIMES DAILY 1 tablet 2 TIMES DAILY (route: oral) Med Classific ation: Analgesic , Anti-infl ammatory or Antipyret ic albuterol sulfate HFA 90 mcg/actuati on aerosol inhaler 2023-11 00:00: 00 Yes [id number] Per instruc tions NEEDED Per instructio ns NEEDED (route: inhalation ) Med Classific ation: Respirato ry Therapy Agents alendronate 70 mg tablet 2023-11 00:00: 00 Yes [id number] 70 mg WEEKLY 70 mg WEEKLY (route: oral) Med Classific ation: Endocrine amlodipine 5 mg tablet 2023-11 00:00: 00 Yes [id number] 1 tablet EVERY AM 1 tablet EVERY AM (route: oral) Med Classific ation: Cardiovas cular Therapy Agents baclofen 10 mg tablet 2023-11 00:00: 00 Yes [id number] 2 tablet EVERY PM 2 tablet EVERY PM (route: oral) Med Classific ation: Locomotor System Banophen 25 mg tablet 2023-11 00:00: 00 Yes [id number] 1 tablet 3 TIMES DAILY 1 tablet 3 TIMES DAILY (route: oral) Med Classific ation: Respirato ry Therapy Agents Breo Ellipta 200 mcg-25 mcg/dose powder for inhalation 2023-11 00:00: 00 Yes [id number] 1 inhalat ion DAILY 1 inhalation DAILY (route: inhalation ) Med Classific ation: Respirato ry Therapy Agents clonazepam 0.5 mg tablet 2023-11 00:00: 00 Yes [id number] 1 tablet 2 TIMES DAILY 1 tablet 2 TIMES DAILY (route: oral) Med Classific ation: Central Nervous System Agents desvenlafax ine fumarate ER 50 mg tablet,exte nded release 24 hr 2023-11 00:00: 00 Yes [id number] 50 mg DAILY 50 mg DAILY (route: oral) Med Classific ation: Central Nervous System Agents Eliquis 5 mg tablet 2023-11 00:00: 00 Yes [id number] 1 tablet 2 TIMES DAILY 1 tablet 2 TIMES DAILY (route: oral) Med Classific ation: Hematolog ical Agents Flonase Allergy Relief 50 mcg/actuati on nasal spray,suspe nsion 2023-11 00:00: 00 Yes [id number] 1 spray 2 TIMES DAILY 1 spray 2 TIMES DAILY (route: nasal) Med Classific ation: Respirato ry Therapy Agents folic acid 1 mg tablet 2023-11 00:00: 00 Yes [id number] 1 tablet EVERY AM 1 tablet EVERY AM (route: oral) Med Classific ation: Electroly te Balance-N utritiona l Products gabapentin 100 mg capsule 2023-11 00:00: 00 Yes [id number] 2 capsule BEDTIME 2 capsule BEDTIME (route: oral) Med Classific ation: Central Nervous System Agents Incruse Ellipta 62.5 mcg/actuati on powder for inhalation 2023-11 00:00: 00 Yes [id number] 1 inhalat ion DAILY 1 inhalation DAILY (route: inhalation ) Med Classific ation: Respirato ry Therapy Agents magnesium 400 mg (as magnesium oxide) tablet 2023-11 00:00: 00 Yes [id number] 1 tablet BEDTIME 1 tablet BEDTIME (route: oral) Med Classific ation: Electroly te Balance-N utritiona l Products montelukast 10 mg tablet 2023-11 00:00: 00 Yes [id number] 1 tablet DAILY 1 tablet DAILY (route: oral) Med Classific ation: Respirato ry Therapy Agents omeprazole 20 mg capsule,del ayed release 2023-11 00:00: 00 Yes [id number] 1 capsule EVERY AM 1 capsule EVERY AM (route: oral) Med Classific ation: Gastroint estinal Therapy Agents oxybutynin chloride ER 5 mg tablet,exte nded release 24 hr 2023-11 00:00: 00 Yes [id number] 1 tablet EVERY AM 1 tablet EVERY AM (route: oral) Med Classific ation: Genitouri nary Therapy primidone 50 mg tablet 2023-11 00:00: 00 Yes [id number] 2 tablet 2 TIMES DAILY 2 tablet 2 TIMES DAILY (route: oral) Med Classific ation: Central Nervous System Agents pseudoephed rine ER 120 mg tablet,exte nded release 2023-11 00:00: 00 Yes [id number] 1 tablet EVERY 12 HOURS 1 tablet EVERY 12 HOURS (route: oral) Med Classific ation: Respirato ry Therapy Agents sodium bicarbonate 650 mg tablet 2023-11 00:00: 00 Yes [id number] 1 tablet 2 TIMES DAILY 1 tablet 2 TIMES DAILY (route: oral) Med Classific ation: Gastroint estinal Therapy Agents Vitamin D3 50 mcg (2,000 unit) capsule 2023-11 00:00: 00 Yes [id number] 1 capsule DAILY 1 capsule DAILY (route: oral) Med Classific ation: Electroly te Balance-N utritiona l Products zolpidem 5 mg tablet 2023-11 00:00: 00 Yes [id number] 2 tablet BEDTIME 2 tablet BEDTIME (route: [...] AWARENESS FOR SAFETY AND WILL NOTIFY CLINICAL SALESPERSON BURIAL PLOTS AND PHYSICIAN/PROVIDER WITH ANY CHANGE IN CONDITION. [...] AWARENESS FOR SAFETY AND WILL NOTIFY CLINICAL SALESPERSON BURIAL PLOTS AND PHYSICIAN/PROVIDER WITH ANY CHANGE IN CONDITION.] Future Scheduled Test SKILLED NU RSE WILL MAINTAIN SITUATIONAL AWARENESS FOR SAFETY AND WILL NOTIFY CLINICAL SALESPERSON BURIAL PLOTS AND PHYSICIAN/PROVIDER WITH ANY CHANGE IN CONDITION. [code = SKILLED NURSE WILL MAINTAIN SITUATIONAL AWARENESS FOR SAFETY AND WILL NOTIFY CLINICAL SALESPERSON BURIAL PLOTS AND PHYSICIAN/PROVIDER WITH ANY CHANGE IN CONDITION.] Goal 2024-11-03 Patient Goal - TO GET BETTER Goal Provider Goal - A PLAN OF CARE WILL BE ESTABLISHED THAT MEETS PATIENT'S JAIL NEEDS AND INCLUDES PATIENT GOAL FOR HOME [...] Reason for Visit INDEPENDENT IN THE HOME Encounters Start Date/Time End Date/Time Encounter Type Admission Type Attending [facility] Department Encounter ID Discharge Date Discharge Status Discharge Condition Discharge Reason Percent Goals Met 2024-10-21 00:00:00 2024-11-03 00:00:00 Outpatient NEW ADMISSION MICHAEL SANCHEZ [facility] [id number] 2024-11-03 00:00:00 DISCHARGE TO HOME OR SELF CARE INDEPENDEN T IN THE HOME PER FAMILY REQUEST 42.31
== END 2024-11-30 13:51 | disposition home or self-care (01) ==
PROVIDERS: PCP Physician Assistant; Visit Provider Physician Assistant
DX: J41.0 Simple chronic bronchitis (principal); F33.1 Major depressive disorder, recurrent, moderate; G20.B1 Parkinson's disease with dyskinesia, without mention of fluctuations; E66.812 Obesity, class 2; Z68.37 Body mass index [BMI] 37.0-37.9, adult; I10 Essential (primary) hypertension; J33.9 Nasal polyp, unspecified; F17.210 Nicotine dependence, cigarettes, uncomplicated

== ENCOUNTER → 2024-11-30 12:48 | Outpatient (BNVA) | payer OTHER, SELFPAY | PROVIDERS: PCP Physician Assistant; Visit Provider Physician Assistant | DX: E66.812 Obesity, class 2 (principal); F33.1 Major depressive disorder, recurrent, moderate; J41.0 Simple chronic bronchitis; G20.B1 Parkinson's disease with dyskinesia, without mention of fluctuations; I10 Essential (primary) hypertension; J33.9 Nasal polyp, unspecified; F17.200 Nicotine dependence, unspecified, uncomplicated; Z71.6 Tobacco abuse counseling | CPT/HCPCS: 96127; 99212 ==

== ENCOUNTER → 2024-12-11 10:59 | Outpatient (BNVA) | payer OTHER, SELFPAY | PROVIDERS: PCP Physician Assistant; Visit Provider Physician Assistant Surgical ==

== ENCOUNTER 2024-12-14 08:47 | Outpatient (AMB) | payer OTHER, SELFPAY ==
[2024-12-14 08:54] VITALS: BP 124/64; PULSE 74; BMI 38.6
--- NOTE | 2024-12-14 08:54 | MHC.OFFVIS ---
Vital Signs 12/14/24 08:54 Height 5 ft 2 in Weight 211 lb 3.245 oz BMI 38.6 BP 124/64 Blood Pressure Location Lt brachial Position Sitting Pulse 74 Pulse Source Monitor Intake Visit Reasons: r/s 11/02/24 w/sol 1 yr f/u w/ekg Intake Note: 1 yr f/up Coffee Urn Attendant Required: No Accompanied by: Self / Same As Patient Allergies cat dander [CATS] Allergy (Mild, Verified 11/30/24 13:10) HAYFEVER Chocolate Allergy (Mild, Verified 11/30/24 13:10) HEADACHES dog dander [DOGS] Allergy (Mild, Verified 11/30/24 13:10) HAYFEVER Environmental Allergy (Mild, Uncoded 11/30/24 13:10) HAYFEVER yellow jackets Allergy (Uncoded 11/30/24 13:10) Anaphylaxis Medication List - Last Reconciled 12/14/24 by Francisco Alvares MD acetaminophen (Pain Relief (acetaminophen)) 500 mg PO BID 90 days acetaminophen-codeine 300-30 mg 1 tab PO Q8H PRN 4 days [adult pullups As directed] albuterol sulfate 90 mcg/actuation (Ventolin HFA) 2 puffs inhalation QID PRN 30 days alendronate (Fosamax) 70 mg PO QWEEK 12 weeks apixaban (Eliquis) 5 mg PO BID 90 days B complex with C 20-folic acid 1 mg (Wescaps) 1 cap PO DAILY 90 days back brace As directed baclofen 20 mg PO BEDTIME [bed pads As directed] cane As directed cholecalciferol (vitamin D3) 50 mcg PO DAILY 90 days clonazepam 0.5 mg PO BID compr.stocking,knee,long,large As directed desvenlafaxine succinate ER 50 mg PO DAILY diaper,brief,adult,disposable As directed diphenhydramine HCl (Banophen) 25 mg PO Q8H 90 days [disposable face masks As directed] disposable gloves As directed epinephrine (EpiPen 2-Kamaljit) 0.3 mg (0.3 mL) IM ONCE PRN 30 days fluticasone furoate-vilanterol 200-25 mcg/dose (Breo Ellipta) 1 inh inhalation DAILY 30 days ofmnzhlcspd-vahrpsooz-djpwciso 200-62.5-25 mcg (Trelegy Ellipta) 1 inh inhalation DAILY 30 days folic acid 1 mg PO DAILY 90 days furosemide 20 mg PO DAILY 30 days gabapentin 400 mg PO DAILY 30 days humidifiers (Cool Mist Humidifier) As directed incontinence pad, liner, disp As directed leg brace (Knee Support Brace) Need for director digital marketing left knee brace with medial support lisinopril 2.5 mg PO DAILY 90 days loperamide 2 mg PO Q8H PRN 7 days magnesium oxide 400 mg PO BEDTIME 90 days miscellaneous medical supply 1 ea miscellaneous DAILY 99 days montelukast 10 mg PO DAILY 90 days omeprazole 20 mg PO DAILY 90 days oxybutynin chloride ER 10 mg PO DAILY 30 days primidone 100 mg PO TID [round raised toilet seat As directed] [soft neck brace As directed] tirzepatide (weight loss) (Zepbound) 2.5 mg (0.5 mL) subcut QWEEK 4 weeks topiramate 200 mg PO BID 90 days triamcinolone acetonide 0.1% 1 appl topical BID 30 days walker (Ultra-Light Rollator misc) As directed zolpidem 5 mg PO BEDTIME HPI Comments Details: 64-year-old female with background history of peripheral neuropathy, polysubstance abuse and previous DVTs who is presenting for shortness of breath and chest discomfort. She is a current smoker. She has been experiencing dyspnea with exertion. She said she was in the sun and had skin sosa on both legs. She is saying that her skin is very sensitive and this happens if she is out in the sun. She also has bilateral lower extremity edema left more than right. She had fracture of left ankle in November 2020. She is complaining of quite atypical upper abdominal and chest feeling which she feels like an electric shock-like sensation. This happens at rest. This has happened once while she was taking shower. She is anxious anxious and emotional. She also has shortness of breath with exertion. No orthopnea PND. She has some peripheral edema which has been present for some time from her report. She has been on Eliquis for previous DVT. She had Lexiscan done which showed no perfusion defect. She is saying she has been feeling better. Overall her breathing is stable. She is saying she has Parkinson's disease and is on carbidopa-levodopa. 11/04/23: She returns for follow-up. She is denying chest discomfort. She has been getting cough and wheezing at nighttime. She has known history of asthma currently is taking 2 inhalers. She follows with primary care physician mostly. She is saying that Parkinson's disease is getting worse. She is walking with a walker when she came to the office. 12/14/2024: She is here for f/u after 1 year. She is denying any chest discomfort. Overall somewhat more short of breath but saying that she has gained more weight over the last year. She is saying her parkinsonian tremors are stable. Blood pressure is well controlled. [facility] Medical History Vitamin B12 deficiency Hx of deep venous thrombosis Microcytic anemia COPD with emphysema Prerenal azotemia Toxic metabolic encephalopathy Transaminitis Allergies Chronic allergic rhinitis Asthma-COPD overlap syndrome COPD exacerbation COVID-19 History of abnormal cervical Pap smear Spinal stenosis, cervical region Peripheral polyneuropathy Spondylosis of cervical spine Spondylosis of lumbar spine Cocaine abuse Alcohol abuse Hepatitis HIV (human immunodeficiency virus infection) Heart murmur History of cocaine abuse History of heroin abuse Hydradenitis Former cigarette smoker Recovering alcoholic GERD (gastroesophageal reflux disease) Lumbago with sciatica, left side Arthritis Back pain On anticoagulant therapy DVT (deep venous thrombosis) History of celiac disease Anxiety Panic attacks Depression PTSD (post-traumatic stress disorder) Parkinson disease History of frequent headaches Seizure Asthma Surgical History H/O excision of ganglion cyst Hx of esophagogastroduodenoscopy History of carpal tunnel surgery of left wrist Hx of nasal septoplasty History of hemorrhoidectomy Hx of colonoscopy Family History Mother No problems noted. Social History Housing: Apartment Are you a primary live in caregiver to a significant other at home: No Do you presently have visiting nurse or other home services: Yes Alcohol intake: former Year quit: 2003 Comment: was seen at [facility]-called for note Patient Tobacco Use Status: Current everyday Tobacco user Tobacco use type: Cigarette Cigarette Packs Per Day: 0.5 Cigarettes Per Day: 10 Years Smoked: 45 e-Cigarette/Vaping Use: Former Use Second Hand Smoke Exposure: Yes service: No Current occupational status: disabled Cognitive needs: Yes (back brace) Hearing needs: No Vision needs: Yes Review of Systems Const Denies chills, Denies fatigue, Denies fever(s), Denies frequent falls, Denies weakness, Denies weight gain and Denies weight loss ENT Denies dizziness Card Denies chest pain, Denies leg edema, Denies lightheadedness, Denies palpitations, Denies dyspnea and Denies dyspnea on exertion Resp Denies cough, Denies dyspnea and Denies dyspnea on exertion GI Denies hematochezia Musc Denies abnormal gait, Denies muscle weakness, Denies numbness, Denies radiating pain into limb and Denies tingling Neuro Denies abnormal gait, Denies dizziness, Denies frequent falls, Denies numbness, Denies tingling and Denies weakness Endo Denies fatigue and Denies palpitations Physical Exam Vital Signs: Last Vital Signs Pulse 74 12/14/24 08:54 BP 124/64 12/14/24 08:54 BMI result Body Mass Index 38.6 GENERAL APPEARANCE: in no acute distress, tremors from Parkinson's disease. NECK: no carotid bruit, no jugular venous distention. HEART: Systolic murmur, regular rate and rhythm. LUNGS: clear to auscultation bilaterally. ABDOMEN: soft, nontender. PERIPHERAL PULSES: equal. Mild edema. NEUROLOGIC: No gross deficits, AAO X 3 Office Procedures EKG Details: Sinus rhythm 74 beats per minute, normal ECG, QTC 424 milliseconds. [id number], Complete Assessment & Plan Assessment & Plan (1) Mitral regurgitation: Code(s): I34.0 - Nonrheumatic mitral (valve) insufficiency Category: Medical (2) HTN (hypertension): Code(s): I10 - Essential (primary) hypertension Category: Medical Qualifiers: Hypertension type: primary hypertension Qualified Code(s): I10 - Essential (primary) hypertension Plan Pleasant 64 year female with known history of hypertension and mild mitral valve regurgitation in the past who is here for follow-up. Clinically she has been stable. She has gained some weight and notices herself to be more short of breath. Clinically not in heart failure. We will arrange echocardiography to reassess the mitral valve regurgitation. She will follow-up with us in 1 year. Thank you for allowing me to participate in the care of your patient. Please feel free to contact me if you have any questions. Orders: Orders CA echo transthoracic complete Today I34.0 - Nonrheumatic mitral (valve) insufficiency Coding Level of Care Code Est Pt Level 3 (99928) Diagnoses Mitral regurgitation I34.0 Primary hypertension I10 Hypertension type: primary hypertension CPT Codes EKG - CPT: 44319-Utbzrvbcsbqhyvsat, Complete ([id number])
--- OUTSIDE RECORDS SUMMARY | 2024-12-14 12:57 | XMS_ITS | Patient Health Record ---
Author Organization [facility] Address [address] [place] [address] Care Team Providers Care Railcar Switchman Name Role Phone Chidi Reyes M.D. Primary Care Provider Un available Boris Quinones Unavailable [phone] ALLERGIES Allergen (clinical drug ingredient) Drug/Non Drug Allergy documented on EMR Reaction Allergy Type Onset Date Status fluoxetine Prozac Unknown Drug Allergy Active DUST/Patient gets allergy shots every week (uncoded) Unknown Allergy Active EVERYTHING OUTSIDE (uncoded) Unknown Allergy Active Cat dander CATS (uncoded) Unknown Allergy Acti ve CHOCOLATE (uncoded) Unknown Allergy Active REASON FOR REFERRAL No Information MEDICATIONS Medication SIG (Take, Route, Frequency, Duration) Notes Start Date End Date Status MiraLax (colon prep) 8.3 ounce ((238) grams mixed with Gatorade or Crystal Light orally begin at 5:00 p.m. the day before the procedure for 1 day 07/15/2020 Active tylenol 500 tab Oral twice a day Active Vitamin D-3 1000 UNIT 1 capsule Orally O nce a day Active MiraLax - 1 capful in 8 ounces of water Orally QD-BID for constipation for 30 days 07/14/2020 Active Imodium A-D 1 MG/7.5ML 1 tablet Orally prn Active clonazePAM 1 MG 1 tablet Orally Twic e a day Active Benadryl Allergy 25 MG 1 capsule as need ed Orally twice a day Active Cetirizine HCl 10 MG 1 tablet as needed Orally Once a day Active Fish Oil 1000 MG 1 capsule Orally Onc e a day for 30 day(s) Active Gabapentin 300 MG 1 capsule Orally QHS Active Ambien 5 MG 1 tablet at bedtime Orally Once a day Active Carbidopa-Levodopa 25-100 MG 1 tablet Orally Once a day for 30 day(s) Active Laxative Active Topiramate 200 MG 1 tablet Orally Once a day Active Lisinopril 10 MG 1 tablet Orally Once a day Not-Taking Eliquis 5 MG as directed Orally Active Meloxicam 7.5 MG 1 tablet Orally Once a day Not-Taking Primidone 50 MG as directed Orally Active Dulcolax (colon prep) 5 MG take at 3:00 p.m and 7:00p.m. Orally two tablets twice a day for one day for 1 day 07/14/2020 Active Zolpidem Tartrate 5 MG 1 tablet at bedti me Orally Once a day Active IMMUNIZATIONS Vaccine Route Administration Date Status Comme nts Influenza Unknown 07/19/2018 Administered Influenza Unknown 08/07/2018 Administered Influenza Unknown 07/19/2019 Administered SOCIAL HISTORY Tobacco Use: Social History Observation Description Date Details (start date - stop date) Current Smoker NA - NA Sex Assigned At : Social History Observation Description Sex Assigned At Unknown Tobacco Use/Smoking Question Answer Notes Patient is a current smoker How often do you smoke cigarettes? every day How many cigarettes a day do you smoke? 11-20 PROBLEMS Problem Type ICD Code Onset Dates Problem Status W/U Status Risk SNOMED Code Notes Problem Diarrhea (R19.7) Active confirmed 46437 008 Problem Positive autoantibody screening for celiac disease (R76.8) Active confirmed 008008733 Problem Celiac disease (K90.0) Active confirmed 009537870 Problem History of adenomatous polyp of colon (Z86.010) Active confirmed 480489694 Problem Diarrhea, unspecified type (R19.7) Active confirmed 98133386 Problem Weight loss (R63.4) Active confirmed 34900109 Problem Encounter for screening for malignant neoplasm of colon (Z12.11) Active confirmed 644395214 Problem Constipation, unspecified constipation type (K59.00) Active confirmed 86362930 PLAN OF TREATMENT Pending Test Test Name Order Date CHEM 7 PROFILE 07/11/2016 LIVER PROFILE 07/11/2016 LIVER PROFILE 02/17/2019 T4 (THYROXINE) 02/17/2019 TSH (THYROID STIMULATING HORMONE) 2018 IRON + IBC (FE) 02/17/2019 FERRITIN 02/17/2019 VITAMIN B12 AND FOLATE 02/17/2019 CBC w DIFF 02/17/2019 CBC w DIFF 07/11/2016 PROTHROMBIN TIME (PT, INR) 02/17/2019 CLOSTRIDIUM DIFF TOXIN A&B (C DIFF) 06/19 STOOL WBC 07/11/2016 CELIAC PANEL #10 07/11/2016 CELIAC PANEL #10 02/17/2019 GIARDIA AG, STOOL EIA 07/11/2016 OVA & PARASITES (O&P) 07/11/2016 CULTURE, STOOL 07/11/2016 Future Test Test Name Order Date UPPER GI ENDOSCOPY 10/05/2015 UPPER GI ENDOSCOPY 07/14/2020 COLONOSCOPY 07/14/2020 Insurance Providers Payer Name Payer Address Payer Phone Subscriber Number Group Number Insured Name Patient Relationship to Insured Coverage Start Date Coverage End Date MEDICAID OF [employer] [address] [place] [id number] PARDEEP SENIOR Self - patient is the insured MEDICAL (GENERAL) HISTORY Medical History History ICD Code COPD/asthma Denies NC,DM,CVA,renal disease C.difficile in 2008--negative stool spec imens in July of 2015 EtOH abuse-sobriety since 11/2013 Substance abuse > 10 years a go--reports that she is HIV and Hepatitis C negative Depression/PTSD Kidney stones Colonoscopy in 07/2015--2 sma ll tubular adenomas removed; no colitis, normal bx from the TI Celiac disease serology in S 2014 revealed an antigliadin IgG antibody of 75, but otherwise negative serologies Negative CAT scan of the abdomen and pel vis in July 2015 Celiac disease confirmed on EGD in 11/2015--also noted to have a small hiatal hernia, but no esophagitis, Claudio's esophagus, nor varices Parkinson's disease DVT -2017--on Eliquis Urinary incontinence Parkinson's disease Surgical History Surgery Date(Month/Year) Removal of lymph nodes near the left mason ast Polyps removed from nose
== END 2024-12-14 09:19 | disposition home or self-care (01) ==
PROVIDERS: PCP Physician Assistant; Visit Provider Internal Medicine Cardiovascular Disease
DX: I34.0 Nonrheumatic mitral (valve) insufficiency (principal); I10 Essential (primary) hypertension
CPT/HCPCS: 93010; 99213

== ENCOUNTER → 2024-12-14 08:47 | Outpatient (BNVA) | payer OTHER, SELFPAY | PROVIDERS: PCP Physician Assistant; Visit Provider Internal Medicine Cardiovascular Disease | DX: I34.0 Nonrheumatic mitral (valve) insufficiency (principal); I10 Essential (primary) hypertension; G62.9 Polyneuropathy, unspecified; F17.210 Nicotine dependence, cigarettes, uncomplicated; Z86.718 Personal history of other venous thrombosis and embolism | CPT/HCPCS: 93005; 99212 ==

== ENCOUNTER 2025-01-05 08:09 | Outpatient (AMB) | payer OTHER, SELFPAY ==
[2025-01-05 08:32] VITALS: BP 132/80; PULSE 81; O2SAT 96; BMI 36.4
--- NOTE | 2025-01-05 08:32 | A.OFFPC_ITS ---
Vital Signs 01/05/25 08:32 Height 5 ft 2 in Weight 199 lb BMI 36.4 BP 132/80 Blood Pressure Location Lt brachial Position Sitting Pulse 81 Pulse Source Pulse Oximeter Pulse Oximetry (%) 96 Oxygen Delivery Method Room Air Intake Visit Reasons: Med Review - see comments Stereotype Finisher Required: No Accompanied by: Self / Same As Patient Allergies cat dander [CATS] Allergy (Mild, Verified 01/05/25 08:32) HAYFEVER Chocolate Allergy (Mild, Verified 01/05/25 08:32) HEADACHES dog dander [DOGS] Allergy (Mild, Verified 01/05/25 08:32) HAYFEVER Environmental Allergy (Mild, Uncoded 01/05/25 08:32) HAYFEVER yellow jackets Allergy (Uncoded 01/05/25 08:32) Anaphylaxis Tobacco use date assessed: 01/05/25 Fall risk assessment: 1 Fall in past year Last assessed Fall Risk: 01/05/25 Dental Screening Dental Screen Date: 01/05/25 Did you have a dental visit in the last 12 months?: No Did you have a dental problem in the last 6 months where you did not have access to dental care?: No Was dental information given to patient?: No HPI Med Review - see comments HPI Details Patient is a 64-year-old female here today for a follow-up visit. ? Patient has a past medical history significant for polysubstance abuse, spinal stenosis, anxiety, depression, pernicous anemia, DVT ( left leg), parkinsons.? Concern--> recently had the flu and has been coughing and having a low-grade fever over the last 2 weeks. 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 She has been experiencing some wheezing and a productive cough. She was treated with both amoxicillin and azithromycin for her upper respiratory in fection and feels she has been getting better. She has not been using her albuterol inhaler or nebulizer and promises to do so during her acute bronchitis with wheeze. CHRONIC MEDICAL CONDITIONS--> Tobacco dependency: Patient continues to smoke. Has tried Chantix though not effective She does understand she needs to quit smoking .. Class 2 Obese: Has lost a few lb since last office visit. She reports she has been trying a low-calorie diet and does do as much physical activity as she can given her tremor disorder and Parkinson's disorder. Of note have noticed lower extremity swelling thus will use furosemide for the next 2 weeks to help some of the fluid retention. .. Allergic rhinitis:? Continues to suffer allergy symptoms. Continues on Benadryl, nasal sprays and decongestants.? She reports the changes seasons are difficult. She reports she was on allergy injections in the past which were helping her with rhinitis and sinusitis. She has an upcoming visit with the ENT specialist about her nasal condition. She reports she has nasal polyps. Of note has a history of intranasal cocaine use . .. PTSD: Is followed by a psychiatrist and a mental health therapist. Was using Topamax for her PTSD disorder though does admit to taking a bit more Topamax to help her with weight loss though had caused some disorientation and an acute kidney injury leading to hospital admission recently. .. Lumbar Spinal stenosis: Is seeing pain speacialist here at [place] [facility] and has started on SPRINT Spinal stimulator which has offered her excellent pain relief in her lumbar spine..? She is now wearing a lumbar support brace. Has followed up with a neurosurgeon for her neck pain though was not a surgical candidate.? Currently a recovering addict and does not use any pain medication besides Tylenol at this time. .. Parkinsons: Sees a neurologist, has been started on primidone. Apparently carbidopa levodopa has been discontinued. ? Also followed for a seizure disorder and denies any recent seizure activity. .? She reports her balance has gotten wo rse, does report recent fall.? She is interested in seeing a physical therapist for balance training. .. Heart? murmur/ Atypical chest pain : IS followed by Processing Technologist ( Dr. Alvares ), Cardiac stress test normal, ECHO showing low/ normal EF. .. h/o polysubtance abuse ( alcohol, crack cocain) : Has been sober since 2013.? Sh e is in a fellowship (AA/ NA) . Major depressive disorder/ generalized anxiety disorder:? She is followed psychiatrist now who manages her mental health medications. She feels her depression is fairly well managed at this time.?? She reports he continues to have trouble with sleep even with use of trazodone, Benadryl and gabapentin at night.?. ? [facility] Medical History Vitamin B12 deficiency Hx of deep venous thrombosis Microcytic anemia COPD with emphysema Prerenal azotemia Toxic metabolic encephalopathy Transaminitis Allergies Chronic allergic rhinitis Asthma-COPD overlap syndrome COPD exacerbation COVID-19 History of abnormal cervical Pap smear Spinal stenosis, cervical region Peripheral polyneuropathy Spondylosis of cervical spine Spondylosis of lumbar spine Cocaine abuse Alcohol abuse Hepatitis HIV (human immunodeficiency virus infection) Heart murmur History of cocaine abuse History of heroin abuse Hydradenitis Former cigarette smoker Recovering alcoholic GERD (gastroesophageal reflux disease) Lumbago with sciatica, left side Arthritis Back pain On anticoagulant therapy DVT (deep venous thrombosis) History of celiac disease Anxiety Panic attacks Depression PTSD (post-traumatic stress disorder) Parkinson disease History of frequent headaches Seizure Asthma Surgical History H/O excision of ganglion cyst Hx of esophagogastroduodenoscopy History of carpal tunnel surgery of left wrist Hx of nasal septoplasty History of hemorrhoidectomy Hx of colonoscopy Family History Mother No problems noted. Social History Housing: Apartment Are you a primary urgent care technician to a significant other at home: No Do you presently have visiting nurse or other home services: Yes Alcohol intake: former Year quit: 2003 Comment: was seen at [facility]-called for note Patient Tobacco Use Status: Current everyday Tobacco user Tobacco use type: Cigarette Cigarette Packs Per Day: 0.5 Cigarettes Per Day: 10 Years Smoked: 45 e-Cigarette/Vaping Use: Former Use Second Hand Smoke Exposure: Yes service: No Current occupational status: disabled Cognitive needs: Yes (back brace) Hearing needs: No Vision needs: Yes Questionnaire PHQ-9 Over the last 2 weeks, how often have you been bothered by any of the following problems? 1. Little interest or pleasure in doing things: not at all 2. Feeling down, depressed, or hopeless: several days (current in treatment and taking medication) 3. Trouble falling or staying asleep, or sleeping too much: not at all 4. Feeling tired or having little energy: not at all 5. Poor appetite or overeating: not at all 6. Feeling bad about yourself - or that you are a failure or have let yourself or your family down: not at all 7. Trouble concentrating on things, such as reading the newspaper or watching television: not at all 8. Moving or speaking so slowly that other people could have noticed. Or the opposite - being so fidgety or restless that you have been moving around a lot more than usual: not at all 9. Thoughts that you would be better off or of hurting yourself in some way: not at all Total score: 1 Depression Screening Interpretation: Negative Depression Screening Done: Yes 28060 - PHQ-9 Billing: Yes Source: Developed by Drs. Boris Garcia, Qian Bullard, Hector Herzog and colleagues, with an educational miguel a from [employer]. Thrive Questionnaire Date Thrive assessed: 01/05/25 I am a: Patient What is your living situation today?: I have a steady place to live Within the past 12 months, did the food you bought not last and you didn't have the money to get more?: Never true Within the past 12 months, did you worry whether your food would run out before you got money to buy more?: Never true Do you have trouble paying for medicines?: No Do you have trouble getting transportation to medical appointments?: No Do you have trouble paying your heating and electricity bill?: No Do you have trouble taking care of your child, family member or friend?: No Do you have trouble with day-to-day activities such as bathing, preparing meals, shopping, managing finances, etc.?: No Are you currently unemployed and looking for a job?: No Are you interested in more education?: No Please select the resources that you would like help with: None Currently or been in a relationship where the following occur: No concerns reported THRIVE Score: 0 AUDIT C Alcohol Use Questionnaire (AUDIT-C) 1. How often do you have a drink containing alcohol?: Never 3. How often do you have six or more drinks on one occasion?: Never Total Score: 0 LUISA-7 AMB Questionnaire LUISA-7 Date LUISA - 7 assessed: 01/05/25 Feeling nervous, anxious, or on edge: 0 = Not at all Not being able to stop or control worryin = Not at all Worrying too much about different things: 0 = Not at all Trouble relaxin = Not at all Being so restless that it is hard to sit still: 0 = Not at all Becoming easily annoyed or irritable: 0 = Not at all Feeling afraid as if something awful might happen: 0 = Not at all Total LUISA-7 score (0-4 normal; 5-9 mild; 10-14 moderate; 15-21 severe): 0 Source: Developed by Drs. Boris Garcia, Qian Bullard, Hector Herzog and colleagues, with an educational miguel a from [employer]. LUISA-7 Assessment Billing LUISA-7 Assessment Tool: LUISA-7 Assessment 86426 Review of Systems Const Reports headache(s) Eyes Denies loss of vision ENT Denies vertigo, Denies dizziness, Reports headache(s) and Denies sore throat Card Denies chest pain, Denies leg edema and Denies lightheadedness Resp Reports cough, Denies hemoptysis and Denies wheezing GI Denies abdominal pain, Denies melena, Denies constipation, Denies diarrhea and Denies vomiting Denies urinary frequency, Denies dysuria and Denies urinary urgency Musc Denies arthralgias, Denies joint swelling, Denies numbness and Denies tingling Neuro Denies Abnormal speech present, Denies behavioral changes, Denies vertigo, Denies dizziness, Reports headache(s), Denies loss of vision, Denies memory loss, Denies numbness and Denies tingling Psych Denies anxiety, Denies behavioral changes, Denies depression, Denies memory loss and Denies panic attacks Carlos/Lymph Denies easy bleeding and Denies easy bruising Aller/Immun Denies wheezing Physical exam (Primary Care) Vital Signs: Oxygen Delivery Method Room Air 01/05/25 08:32 Tobacco/Smoking Status: Tobacco use Status Tobacco use date assessed 10/26/24 11/30/24 12:53 Patient Tobacco Use Status Current everyday Tobacco 11/30/24 12:53 Tobacco use type Cigarette 11/30/24 12:53 e-Cigarette/Vaping Use Former Use 11/30/24 12:53 Depression Screening Interpretation: Negative Thrive Assessment: Date of Thrive Assessment Date Thrive assessed 11/30/24 11/30/24 12:53 Currently or been in a relationship where the following occur: No concerns reported Const General: healthy appearing, no acute distress, alert and awake Nutritional Appearance: well nourished Orientation/consciousness: oriented to person, oriented to place and oriented to time HENMT Ears: TM's normal bilaterally General nose exam: Normal nasal mucous membranes and turbinates present Eyes Conjunctivae: conjunctivae normal Sclerae: sclerae normal Pupils: Equal, round and reactive pupils present Neck Neck: Yes no lymphadenopathy and Yes no JVD Thyroid: Thyroid normal Carotids: no bruits Resp Other: NOTED WHEEZE OVER BILATERAL POSTERIOR LUNG CRUZ Effort & Inspection: normal respiratory effort and not tachypneic Auscultation: no crackles, no rales, no rhonchi and wheezes Cardio Rate: regular rate Rhythm: regular rhythm Heart sounds: no murmurs and normal S1 and S2 GI Palpation (GI): Soft to palpation, nontender, no hepatomegaly and no splenomegaly Auscultation: normal bowel sounds Skin General skin exam: no rashes or lesions noted and dry skin Neuro General: oriented to person, oriented to place and oriented to time Cranial nerves: Yes Equal, round and reactive pupils present Speech: No Abnormal speech present Gait exam (Neuro): Normal gait present Motor exam (neuro): no tremor noted Extrem Right upper extremity: full ROM Left upper extremity: full ROM Right lower extremity: full ROM; no edema Left lower extremity: full ROM; no edema Psych Mental Status: mental status grossly normal Speech and movement: Normal speech and movement present Affect: normal affect Attitude: cooperative Thought process: Normal thought process present Coding Level of Care Code Est Pt Level 4 (01181) Diagnoses Simple chronic bronchitis J41.0 COPD type: chronic bronchitis Chronic bronchitis type: simple Parkinson's disease with dyskinesia without fluctuating manifestations G20.B1 Dyskinesia presence: with dyskinesia Fluctuating manifestations: without fluctuating manifestations Primary hypertension I10 Hypertension type: primary hypertension Tobacco dependence F17.200 Viral upper respiratory tract infection J06.9 URI type: unspecified viral URI Additional Codes LUISA-7 Assessment Billing - LUISA-7 Assessment Tool: LUISA-7 Assessment 76510 ([id number]) PHQ-9 - 39979 - PHQ-9 Billing: Yes ([id number]) Assessment & Plan Assessment & Plan (1) COPD (chronic obstructive pulmonary disease): Code(s): J44.9 - Chronic obstructive pulmonary disease, unspecified Category: Medical Qualifiers: COPD type: chronic bronchitis Chronic bronchitis type: simple Qualified Code(s): J41.0 - Simple chronic bronchitis Plan: As per HPI has been having an upper respiratory infection that was treated with dual antibiotics. Unfortunately still smokes 4 or 5 cigarettes per day. Will send a 6-8 prednisone taper do the wheeze Offered her nicotine replacement though she declines. Has tried Chantix in the past though has not found it effective for her. (2) Parkinson disease: Code(s): G20 - Parkinson's disease Category: Medical Qualifiers: Dyskinesia presence: with dyskinesia Fluctuating manifestations: without fluctuating manifestations Qualified Code(s): G20.B1 - Parkinson's disease with dyskinesia, without mention of fluctuations Plan: Continues to follow neurology and continues on primidone for her tremors. She r eports her tremors have gotten a bit worse over the last several months. She has not had any recent falls though does use a walker for ambulation assistance. (3) HTN (hypertension): Code(s): I10 - Essential (primary) hypertension Category: Medical Qualifiers: Hypertension type: primary hypertension Qualified Code(s): I10 - Essential (primary) hypertension Plan: Patient's blood pressure acceptable today in office. Will continue her current antihypertensive medication. Otherwise goal blood pressures to be below 140/90 (4) Tobacco dependence: Code(s): F17.200 - Nicotine dependence, unspecified, uncomplicated Category: Medical Plan: As per HPI patient unfortunately continues to smoke cigarettes daily. She has tried nicotine replacement and Chantix in the past though has been ineffective. (5) URI (upper respiratory infection): Code(s): J06.9 - Acute upper respiratory infection, unspecified Category: Medical Qualifiers: URI type: unspecified viral URI Qualified Code(s): J06.9 - Acute upper respiratory infection, unspecified Plan: As per HPI patient does have wheeze on physical exam today. Will supply patient with a 6 day prednisone taper to help with with the acute bronchitis Orders: Orders Comprehensive Belle. Panel Fast Today I10 - Essential (primary) hypertension Complete Blood Count no Diff Today I10 - Essential (primary) hypertension Lipid Panel Today I10 - Essential (primary) hypertension IRON PROFILE Today D50.9 - Iron deficiency anemia, unspecified SARS-CoV2/FLU/RSV Today J06.9 - Acute upper respiratory infection, unspecified Microalbumin, Random (w Creat) Today I10 - Essential (primary) hypertension Vitamin B12 and Folate Today E53.8 - Deficiency of other specified B group vitamins Medications: New oxybutynin chloride ER 15 mg PO DAILY 90 days 90 tabs 1RF R32 - Unspecified urinary incontinence prednisone Take 3 tablets x2 days, 2 tablets x2 days, 1 tablet x2 days 10 mg PO DI RECTED 6 days 12 tabs 0RF J06.9 - Acute upper respiratory infection, unspecified Discontinued oxybutynin chloride ER Discontinued Reason: Doctor's Order 10 mg PO DAILY 30 days 30 tabs 3RF R32 - Unspecified urinary incontinence azithromycin Discontinued Reason: Doctor's Order For 250 mg dose pack: take 500 mg today (day 1), then 250 mg for 4 days (days 2-5) PO 6 tabs 0RF J01.10 - Acute frontal sinusitis, unspecified amoxicillin Discontinued Reason: Doctor's Order 500 mg PO Q8H 7 days 21 caps 0RF J32.9 - Chronic sinusitis, unspecified
== END 2025-01-05 09:05 | disposition home or self-care (01) ==
PROVIDERS: PCP Physician Assistant; Visit Provider Physician Assistant
DX: J41.0 Simple chronic bronchitis (principal); G20.B1 Parkinson's disease with dyskinesia, without mention of fluctuations; I10 Essential (primary) hypertension; F17.200 Nicotine dependence, unspecified, uncomplicated; J06.9 Acute upper respiratory infection, unspecified

== ENCOUNTER 2025-01-05 08:09 | Outpatient (REF) | payer OTHER, SELFPAY ==
--- OUTSIDE RECORDS SUMMARY | 2025-01-05 17:29 | XMS_ITS | Patient Health Record ---
Author Organization [facility] Address [address] [place] [address] Care Team Providers [place]ing Man Name Role Phone Chidi Reyes M.D. Primary Care Provider Un available Boris Quinones Unavailable [phone] ALLERGIES Allergen (clinical drug ingredient) Drug/Non Drug [...] Code Notes Problem Diarrhea (R19.7) Active confirmed 78362 008 Problem Positive autoantibody screening for celiac disease (R76.8) Active confirmed [id number] Problem Celiac disease (K90.0) Active confirmed 129043764 Problem History of adenomatous polyp of colon (Z86.010) Active confirmed 984439776 Problem Diarrhea, unspecified type (R19.7) Active confirmed 25675350 Problem Weight loss (R63.4) Active confirmed 14072456 Problem Encounter for screening for malignant neoplasm of colon (Z12.11) Active confirmed 770178586 Problem Constipation, unspecified constipation type (K59.00) Active confirmed 69009674 PLAN OF TREATMENT Pending Test Test Name Order Date CHEM 7 PROFILE 07/11/2016 LIVER PROFILE 02/17/2019 LIVER PROFILE 07/11/2016 T4 (THYROXINE) 02/17/2019 TSH (THYROID STIMULATING HORMONE) [...] Start Date Coverage End Date MEDICA[employer] OF [employer] [address] [place] [id number] PARDEEP SENIOR Self - patient is the insured MEDICAL (GENERAL) HISTORY Medical History History ICD Code COPD/asthma Denies IL,DM,CVA,renal disease C.difficile in 2008--negative stool spec imens [...]
[2025-01-05 18:56] LABS: Influenza A PCR NEGATIVE (Negative); Influenza B PCR NEGATIVE (Negative); Resp Syncy Virus RNA Qual PCR NEGATIVE (Negative); SARS COV2 PCR INHOUSE NEGATIVE (Negative)
== END 2025-01-05 08:10 | disposition home or self-care (01) ==
LOC: HO.LNP 08:09
PROVIDERS: PCP Physician Assistant; Visit Provider Physician Assistant
DX: J41.0 Simple chronic bronchitis (principal); G20.B1 Parkinson's disease with dyskinesia, without mention of fluctuations; I10 Essential (primary) hypertension; J06.9 Acute upper respiratory infection, unspecified; F17.210 Nicotine dependence, cigarettes, uncomplicated
CPT/HCPCS: 0241U; 96127; 99212

== ENCOUNTER → 2025-01-15 08:32 | Outpatient (REF) | payer OTHER, SELFPAY ==
--- NOTE | 2025-01-15 08:37 | CA_ITS ---
Transthoracic Echocardiogram Patient (Last, First, Middle): Ashly Costa M Gender: Female Date of : 1960 Age: 64 Procedure Date: 01/15/2025 Procedure Type: Transthoracic Echocardiogram Location: OP Height: 157.48 cm Weight: 89.81 kg BSA: 1.90 m2 Heart Rate: 77 bpm BP: 138 / 64 mmHg Business Integration Analyst: SB Referring MD: Francisco Alvares MD Symptoms: I34.0 - Nonrheumatic mitral (valve) insufficiency Study Quality: Adequate ECG Rhythm: Sinus Conclusions: - Normal left ventricular size, thickness, and systolic function. The visually estimated ejection fraction is between 55-60%. - E/E prime ratio is between 8 and 15 consistent with indeterminate filling pressures. - Normal right ventricular cavity size and systolic function. - There is mild to moderate mitral valve regurgitation. Findings Left Ventricle Normal left ventricular size, thickness, and systolic function. The visually estimated ejection fraction is between 55-60%. There is no evidence of regional wall motion abnormalities. Abnormal diastolic function is noted. Spectral Doppler is indicative of a pseudonormal filling pattern. E/E prime ratio is between 8 and 15 consistent with indeterminate filling pressures. Right Ventricle Normal right ventricular cavity size and systolic function. Atria The left atrium is normal in size. The right atrium is normal in size. Aortic Valve There is a normal trileaflet aortic valve. There is mild calcification of the aortic valve. There is no aortic valve stenosis. There is no aortic valve regurgitation. Mitral Valve The mitral valve appears normal. There is mild to moderate mitral valve regurgitation. There is no mitral valve stenosis. Pulmonic Valve The pulmonic valve is likely normal. There is trace pulmonic valve regurgitation. Tricuspid Valve Normal tricuspid valve structure. There is trace tricuspid valve regurgitation. Normal right atrial pressure. There is no evidence of pulmonary hypertension. Great Vessels There is mild dilatation of the ascending aorta measuring 3.50 cm. The visualized portions of the pulmonary artery and branches are normal. Venous The inferior vena cava is normal in size and collapses greater than 50% with inspiration. Pericardium/Pleural There is no evidence of pericardial effusion. Prior Study Comparison Changes noted compared to prior study dated: 05/18/2021. Normal LVEF, mild to moderate MR (unchanged) Measurements 2D Linear Measurements IVSd: 0.81 0.6-0.9/0.6-1.0 cm LVIDd: 5.15 3.9-5.3/4.2-5.9 cm LVIDd Index: 2.71 2.4-3.2/2.2-3.1 cm/m2 LVIDs: 3.24 2.0-3.6 cm LVPWd: 0.75 0.7-1.1 cm Ao Root: 3.00 2.1-3.5 cm LA Diam: 4.20 2.7-3.8/3.0-4.0 cm LAIDs Index: 2.21 1.5-2.3 cm/m2 LV Mass: 172.28 67-162/88-224 g LV Mass Index: 90.67 43-95/49-115 g/m2 LVOT Diam: 2.00 3.0+(-)1.3 cm 2D Systolic Function EF 4C: 57.60 >55% EF 2C: 60.40 >55% EF BiP: 58.90 >55% Mitral Valve MV Pk E: 0.91 MV PK A: 0.76 MV Decel Time: 238.00 E/A: 1.20 E'Lateral: 8.49 E'Medial: 5.98 E/E' Med: 15.30 E/E' Lat: 10.80 PHT: 70.00 MVA PHT: 3.14 Decel [place]: 3.83 MR Vol - PW Dopp: 20.04 MR VTI: 1.67 MR ERO: 12.00 MR Alias Adolph: 0.39 MR RAD: 0.50 Aortic Valve AoV Pk Adolph: 1.92 AoV Pk Grad: 15.00 GLEN: 2.14 LVOT LVOT Pk Adolph: 1.25 LVOT Mn Adolph: 0.82 LVOT VTI: 0.27 LVOT Pk Grad: 6.00 LVOT Mn Grad: 3.00 LVOT Diam: 2.00 LVOT Area: 3.14 Diastolic Function MV Pk E: 0.91 MV Pk A: 0.76 E/A: 1.20 E'Medial: 5.98 E/E' Med: 15.30 E' Laterial: 8.49 E/E' Lat: 10.80 Right Ventricle TAPSE (mm): 24.90 TVS' Adolph: 14.00 Tricuspid Valve TR Pk Adolph: 2.44 TR Pk Grad: 24.00 RA Press: 3.00 RVSP: 27.00 Great Vessels Aorta Ao Root-2D: 3.00 2.0-3.7 cm Sinus of Valsalva: 3.00 2.0-3.5 cm Ao Asc: 3.50 2.1-3.4 cm Pulmonary Valve PV Pk Adolph: 1.10 Peak PV Grad: 5.00 Updated in Other Vendor System with Status of Final Francisco Alvares MD electronically signed on 01/17/2025 6:19:17 AM with status of Final
--- OUTSIDE RECORDS SUMMARY | 2025-01-15 08:45 | XMS_ITS | Patient Health Record ---
Author Organization [facility] Address [address] [place] [address] Care Team Providers Care Blueprinting And Photocopy Supervisor Name Role Phone Chidi Reyes M.D. Primary Care Provider Un available Boris Quinones Unavailable [phone] ALLERGIES Allergen (clinical drug ingredient) Drug/Non Drug Allergy documented on EMR Reaction Allergy Type Onset Date Status DUST/Patient gets allergy shots every week (uncoded) Unknown Allergy Active EVERYTHING OUTSIDE (uncoded) Unknown Allergy Active CATS (uncoded) Unknown Allergy Activ e CHOCOLATE (uncoded) Unknown Allergy Active fluoxetine Prozac Unknown Drug Allergy Active REASON FOR REFERRAL No Information [...] W/U Status Risk SNOMED Code Notes Problem Encounter for screening for malignant neoplasm of colon (Z12.11) Active confirmed 175974940 Problem History of adenomatous polyp of colon (Z86.010) Active confirmed 884095226 Problem Diarrhea (R19.7) Active confirmed 68666 008 Problem Weight loss (R63.4) Active confirmed 19788219 Problem Celiac disease (K90.0) Active confirmed 616639992 Problem Constipation, unspecified constipation type (K59.00) Active confirmed 37604616 Problem Positive autoantibody screening for celiac disease (R76.8) Active confirmed 490551817 Problem Diarrhea, unspecified type (R19.7) Active confirmed [id number] PLAN OF TREATMENT Pending Test Test Name Order Date CHEM 7 PROFILE 07/11/2016 LIVER PROFILE 07/11/2016 LIVER PROFILE 02/17/2019 T4 (THYROXINE) 02/17/2019 TSH (THYROID STIMULATING HORMONE) 2018 IRON + IBC (FE) 02/17/2019 FERRITIN 02/17/2019 VITAMIN B12 AND FOLATE 02/17/2019 CBC w DIFF 07/11/2016 CBC w DIFF 02/17/2019 PROTHROMBIN TIME (PT, INR) 02/17/2019 CLOSTRIDIUM DIFF TOXIN A&B (C DIFF) 06/19 STOOL WBC 07/11/2016 CELIAC PANEL #10 02/17/2019 CELIAC PANEL #10 07/11/2016 GIARDIA AG, STOOL EIA 07/11/2016 OVA & PARASITES (O&P) 07/11/2016 CULTURE, STOOL 07/11/2016 Future Test Test Name Order Date UPPER GI ENDOSCOPY 10/05/2015 UPPER GI ENDOSCOPY 07/14/2020 COLONOSCOPY 07/14/2020 Insurance Providers Payer Name Payer Address Payer Phone Subscriber Number Group Number Insured Name Patient Relationship to Insured Coverage Start Date Coverage End Date MEDICAID OF [employer] [address] [place] [phone] [id number] Self - patient is the insured MEDICAL (GENERAL) HISTORY Medical History History ICD Code COPD/asthma Denies CA,DM,CVA,renal disease C.difficile in 2008--negative stool spec imens [...]
== END ==
LOC: HO.CARD 08:32
PROVIDERS: PCP Physician Assistant; Visit Provider Internal Medicine Cardiovascular Disease
DX: I34.0 Nonrheumatic mitral (valve) insufficiency (principal)
CPT/HCPCS: 93306

== ENCOUNTER → 2025-01-15 08:37 | Outpatient (BNV) | payer OTHER, SELFPAY | PROVIDERS: PCP Physician Assistant; Visit Provider Internal Medicine Cardiovascular Disease | DX: I35.1 Nonrheumatic aortic (valve) insufficiency (principal); I34.0 Nonrheumatic mitral (valve) insufficiency | CPT/HCPCS: 93306 ==

== ENCOUNTER 2025-03-13 14:51 | Emergency (ER) | payer OTHER, SELFPAY ==
--- NOTE | ~2025-03-13 | CT_ITS ---
CLINICAL HISTORY: Fall on steps CT lumbar spine without contrast Comparison: None Findings: No acute fracture or dislocation. Posterior alignment is normal. Mild degenerative change. No radiopaque foreign bodies. Impression: No acute processes This document has been electronically signed by: Tai Toney MD on 03/13/2025 17:29:47
--- NOTE | ~2025-03-13 | CT_ITS ---
CLINICAL HISTORY: Fall on steps CT thoracic spine without contrast Comparison: None Findings: No acute fracture or dislocation. Posterior alignment is normal. No significant degenerative change. Old rib fracture deformities. No radiopaque foreign bodies. Impression: No acute processes This document has been electronically signed by: Tai Toney MD on 03/13/2025 17:28:13
--- NOTE | ~2025-03-13 | XR_ITS ---
CLINICAL HISTORY: pain 3 views lumbar spine Comparison: MR/SR - MR LUMBAR SPINE WO CON - 09/21/24 08:11 EST Findings: Normal vertebral body alignment. No acute fractures or dislocation. Vertebral body heights appear well-maintained. Mild disc and moderate facet degenerative changes. Prominent aortic calcifications. Gaseous distention of multiple small bowel loops suggesting mild ileus pattern. IMPRESSION: No acute fracture in the lumbar spine. This document has been electronically signed by: Sandie Castro DO on 03/13/2025 16:47:08
--- NOTE | ~2025-03-13 | XR_ITS ---
CLINICAL HISTORY: pain 3 views thoracic spine Comparison: None Findings: Normal vertebral body alignment. No acute fractures or dislocation. Vertebral body heights appear maintained. Moderate degenerative changes. On the swimmer's view, there is nonspecific artifact projecting over the posterior elements of C2. IMPRESSION: No acute fracture in the thoracic spine. This document has been electronically signed by: Sandie Castro DO on 03/13/2025 16:45:36
[2025-03-13 14:55] VITALS: BP 142/73; BP 168/90; PULSE 77; PULSE 91; RESP 18; TEMP 36.4; O2SAT 95; O2SAT 97; BMI 38.3
--- NOTE | 2025-03-13 14:58 | ED.GENADULT ---
HPI - General Adult General Chief complaint: Back Pain/Injury Stated complaint: BACK PAIN Time Seen by Provider: 03/13/25 16:04 History of Present Illness ED Provider: Dr. Sawyer HPI narrative: 64 y/o F patient; PMH COPD, obesity, HTN, seizure disorder, HIV, polysubstance abuse, hx DVT on Eliquis; presents from home via EMS reporting lower back pain since 03/03/2025. The patient states she slipped going down the stairs approx 3 steps total and landed onto her mid/lower back. She was able to get off the floor and ambulate. She denies hitting her head or losing consciousness. She denies numbness/tingling/weakness of her lower extremities, bowel or bladder incontinence, or perineum numbness. She has been walking more than normal yesterday at the hospital with her mother and became concerned regarding her pain so presents today for evaluation. Related Data Home Medications ?Medication ?Instructions ?Recorded ?Confirmed clonazepam 1 mg tablet 0.5 mg PO BID 10/31/22 12/14/24 desvenlafaxine succinate 50 mg 50 mg PO DAILY 07/30/24 12/14/24 tablet,extended release 24 hr primidone 50 mg tablet 100 mg PO TID 10/26/24 12/14/24 zolpidem 10 mg tablet 5 mg PO BEDTIME 10/26/24 12/14/24 Previous Rx's ?Medication ?Instructions ?Recorded disposable gloves #1,000 ea 04/02/23 adult pullups #120 ea 04/25/23 diaper,brief,adult,disposable #120 ea 05/20/23 epinephrine 0.3 mg/0.3 mL 0.3 mg (0.3 mL) IM ONCE PRN 05/29/23 injection, auto-injector (EpiPen anaphylaxis 30 days #2 ea 2-Kamaljit) walker (Ultra-Light Rollator misc) #1 ea 07/03/23 miscellaneous medical supply 1 ea miscellaneous DAILY 99 days 10/28/23 #1 ea compr.stocking,knee,long,large #2 ea 11/07/23 cane #1 ea 11/13/23 back brace #1 ea 12/02/23 soft neck brace #1 ea 12/02/23 incontinence pad, liner, disp #200 ea 02/19/24 albuterol sulfate 90 mcg/actuation 2 puff inhalation QID PRN 03/24/24 aerosol inhaler (Ventolin HFA) shortness of breath or wheezing 30 days #18 grams disposable face masks #1 03/26/24 fluticasone fur. 200 mcg-umeclid 1 inh inhalation DAILY 30 days #60 03/26/24 62.5 mcg-vilant 25 mcg ea inhalat.powder (Trelegy Ellipta) fluticasone furoate 200 1 inh inhalation DAILY 30 days #60 04/06/24 mcg-vilanterol 25 mcg/dose ea inhalation powder (Breo Ellipta) leg brace (Knee Support Brace) #1 ea 06/09/24 diphenhydramine HCl 25 mg capsule 25 mg PO Q8H allergies 90 days 06/23/24 (Banophen) #270 caps round raised toilet seat #1 07/09/24 montelukast 10 mg tablet 10 mg PO DAILY 90 days #90 tabs 11/03/24 vitamin B complex and vitamin C 1 cap PO DAILY 90 days #90 caps 11/09/24 no.20-folic acid 1 mg capsule (Prixel) triamcinolone acetonide 0.1 % 1 appl topical BID 30 days #80 11/12/24 topical cream grams acetaminophen 500 mg tablet (Pain 500 mg PO BID for fever 90 days 11/25/24 Relief (acetaminophen)) #180 tabs humidifiers (Cool Mist Humidifier) #1 11/30/24 tirzepatide (weight loss) 2.5 2.5 mg (0.5 mL) subcut QWEEK 4 11/30/24 mg/0.5 mL subcutaneous pen weeks #2 mL injector (Zepbound) topiramate 200 mg tablet 200 mg PO BID 90 days #180 tabs 11/30/24 acetaminophen 300 mg-codeine 30 mg 1 tab PO Q8H PRN pain 4 days #12 12/07/24 tablet tabs lisinopril 2.5 mg tablet 2.5 mg PO DAILY 90 days #90 tabs 12/07/24 folic acid 1 mg tablet 1 mg PO DAILY 90 days #90 tabs 12/21/24 furosemide 20 mg tablet 20 mg PO DAILY 90 days #90 tabs 12/21/24 gabapentin 400 mg capsule 400 mg PO DAILY 30 days #30 caps 01/04/25 oxybutynin chloride 15 mg 15 mg PO DAILY 90 days #90 tabs 01/05/25 tablet,extended release 24 hr prednisone 10 mg tablet 10 mg PO DIRECTED 6 days #12 01/05/25 tabs cholecalciferol (vitamin D3) 50 50 mcg PO DAILY 90 days #90 caps 01/15/25 mcg (2,000 unit) capsule magnesium oxide 400 mg PO BEDTIME 90 days #90 caps 01/15/25 omeprazole 20 mg capsule,delayed 20 mg PO DAILY 90 days #90 caps 01/19/25 release alendronate 70 mg tablet (Fosamax) 70 mg PO QWEEK 12 weeks #12 tabs 01/20/25 lidocaine 5 % topical patch 1 patch topical DAILY 30 days #30 01/20/25 ea baclofen 10 mg tablet 20 mg (2 x 10 mg) PO BEDTIME 90 01/27/25 days #180 tabs EXERCISE BIKE #1 ea 02/01/25 loperamide 2 mg capsule 2 mg PO Q8H PRN loose stool 7 days 02/01/25 #21 caps bed pads #120 ea 02/03/25 apixaban 5 mg tablet (Eliquis) 5 mg PO BID 90 days #180 tabs 02/09/25 Soft TLSO with shoulder straps #1 ea 03/04/25 dextromethorphan-guaifenesin 5 10 ml PO Q4-8H PRN cough #500 mL 03/11/25 mg-100 mg/5 mL oral liquid (Robitussin Cough-Chest Congestion DM) Allergies Allergy/AdvReac Type Severity Reaction Status Date / Time cat dander [CATS] Allergy Mild HAYFEVER Verified 03/13/25 15:00 Chocolate Allergy Mild HEADACHES Verified 03/13/25 15:00 dog dander [DOGS] Allergy Mild HAYFEVER Verified 03/13/25 15:00 Environmental Allergy Mild HAYFEVER Uncoded 03/13/25 15:00 yellow jackets Allergy Anaphylaxis Uncoded 03/13/25 15:00 Review of Systems Review of Systems: Yes all other systems are reviewed and are negative Neurologic: Denies Abnormal speech present and Denies Sensory deficit (Neuro) PMFSH Past Medical History Attestation statement: The following information was validated with the patient. Source: old records reviewed Medical History Vitamin B12 deficiency Hx of deep venous thrombosis Microcytic anemia COPD with emphysema Prerenal azotemia Toxic metabolic encephalopathy Transaminitis Allergies Chronic allergic rhinitis Asthma-COPD overlap syndrome COPD exacerbation COVID-19 History of abnormal cervical Pap smear Spinal stenosis, cervical region Peripheral polyneuropathy Spondylosis of cervical spine Spondylosis of lumbar spine Cocaine abuse Alcohol abuse Hepatitis HIV (human immunodeficiency virus infection) Heart murmur History of cocaine abuse History of heroin abuse Hydradenitis Former cigarette smoker Recovering alcoholic GERD (gastroesophageal reflux disease) Lumbago with sciatica, left side Arthritis Back pain On anticoagulant therapy DVT (deep venous thrombosis) History of celiac disease Anxiety Panic attacks Depression PTSD (post-traumatic stress disorder) Parkinson disease History of frequent headaches Seizure Asthma Surgical History H/O excision of ganglion cyst Hx of esophagogastroduodenoscopy History of carpal tunnel surgery of left wrist Hx of nasal septoplasty History of hemorrhoidectomy Hx of colonoscopy Family History Family History Mother No problems noted. Social History Social History Housing: Apartment Are you a primary customer care specialist to a significant other at home: No Do you presently have visiting nurse or other home services: Yes Alcohol intake: former Year quit: 2003 Comment: was seen at [facility]-called for note Patient Tobacco Use Status: Current everyday Tobacco user Tobacco use type: Cigarette Cigarette Packs Per Day: 0.5 Cigarettes Per Day: 10 Years Smoked: 45 e-Cigarette/Vaping Use: Former Use Second Hand Smoke Exposure: Yes Advance Directives: No Advance Directives Information Provided: No Do you have a plan to hurt others: No Plan service: No Current occupational status: disabled Cognitive needs: Yes (back brace) Hearing needs: No Vision needs: Yes Physical Exam ED Vital Signs: Vital Signs - 24 hr 03/13/25 14:55 03/13/25 18:08 Temperature 97.5 F Pulse Rate 77 65 Respiratory Rate 18 Blood Pressure 142/73 H 124/67 Pulse Oximetry 97 97 Oxygen Delivery Method Room Air Room Air BMI result Body Mass Index 38.3 Patient is afebrile and hemodynamically stable. Const General: cooperative and no acute distress Orientation/consciousness: patient oriented x3 HENMT Head: Yes normal to inspection and Yes atraumatic Eyes General: appearance normal, both eyes and all related structures Pupils: Equal, round and reactive pupils present EOM: EOMs intact bilaterally Neck Neck: Yes normal visual inspection, Yes full ROM, Yes supple and No tender Chest Chest palpation & inspection: normal inspection of the chest and normal palpation of entire chest wall Resp Effort & Inspection: normal respiratory effort, able to speak in complete sentences, no cough and no respiratory distress Auscultation: clear to auscultation bilaterally Cardio Rate: regular rate Rhythm: regular rhythm Peripheral pulses: Peripheral pulses 2+ throughout GI Inspection: Yes normal to inspection, No Abdominal wall edema and No distended Palpation (GI): Soft to palpation, not firm, nontender, no guarding and not rigid Auscultation: normal bowel sounds Back/Spine/Pelvis Other: Tenderness to right lumbar region. No central bony tenderness, step-off, or crepitus. No skin abnormalities. Neuro General: patient oriented x3 Cranial nerves: Yes Equal, round and reactive pupils present Cognition (Neuro): normal cognition Speech: No Abnormal speech present Motor exam (neuro): 5/5 motor strength present throughout Sensory Exam: No Sensory deficit (Neuro) Coordination: [id number] test normal Course Course Course Narrative: RME, this is a rapid medical exam performed by Cristobal Good please refer to primary provider for complete H&P- 64 year old female presents for evaluation of mid and lower back pain for the last week after falling one week ago. Her pain is worse since yesterday. She reports that she was walking a lot around [facility] because her mother is in the hospital and she was visiting. Plan for x-rays Reevaluation(s) Reevaluation #1: Patient is afebrile and hemodynamically stable. Atraumatic examination. Neurologically intact. Will obtain screening & inflammatory blood work. Will obtain CT imaging. I reviewed the XRs ordered in triage which were negative for fx or dislocation. CT Thoracic and Lumbar unremarkable for acute process. Labs reviewed. No leukocytosis. Mild baseline anemia. Mild hyponatremia (129). CRP minimally elevated at 1.29. Patient is ambulatory with her cane as baseline. Discussed sign/symptoms for which to return to the emergency department including: fever or chills, worsening pain, vomiting, numbness/weakness/tingling of lower extremities. Plan: Discharge to home with PCP follow up Return precautions given Medical Decision Making Lab Data 03/13/25 17:35 03/13/25 17:35 Labs: Lab Results 03/13/25 Range/Units 17:35 WBC 7.0 (4.8-10.8) X10*3/uL RBC 3.33 L (4.20-5.50) X10*6/uL Hgb 10.6 L (12.0-16.0) g/dl Hct 31.0 L (37.0-47.0) % MCV 93.1 (80.0-98.0) fL MCH 31.8 (27.0-33.0) pg MCHC 34.2 (31.0-35.0) g/dl RDW 14.3 (11.0-16.0) % Plt Count 226 (160-400) X10*3/uL MPV 9.1 L (9.4-12.3) fL Immature Gran % (Auto) 0.3 (0.0-0.4) % Neut % (Auto) 50.8 (45-73) % Lymph % (Auto) 27.1 (20-40) % [place] % (Auto) 15.2 H (2-11) % Eos % (Auto) 6.0 H (0-4) % Baso % (Auto) 0.6 (0-2) % Lymph # (Auto) 1.9 (1.2-4.9) X10*3/uL Dod[place] # (Auto) 1.1 (0.1-1.2) X10*3/uL Eos # (Auto) 0.4 (0.0-0.4) X10*3/uL Baso # (Auto) 0.0 (0.0-0.2) X10*3/uL Abs Immat Gran (auto) 0.02 (0.00-0.03) X10*3/uL Absolute Neuts (auto) 3.6 (2.0-8.3) x10*3/uL Absolute Nucleated RBC 0.000 (0.0-0.012) X10*3/uL Nucleated RBC % (auto) 0.0 (0.0-0.2) /100WBC Sodium 129 L (135-145) mmol/L Potassium 4.4 (3.3-5.1) mmol/L Chloride 97 (96-108) mmol/L Carbon Dioxide 26 (22-29) mmol/L Anion Gap 10 L (12-20) BUN 14 (9-16) mg/dL Creatinine 1.08 (0.5-1.4) mg/dL Estim Creat Clear Calc 56.5 Estimated GFR 51 Random Glucose 106 (60-115) mg/dL Calcium 9.0 (8.4-10.2) mg/dL C-Reactive Protein 1.29 H (< or = 0.50) mg/dL Radiology Impression Discussion of test interpretation with radiology: I have reviewed the radiologist's reading. Radiologist Impression: Ordering Physician: Derrell Good Date of Service: 03/13/25 Procedure(s): XR lumbar spine 2-3V Accession Number(s): [id number] cc: Derrell Good; Physician,Unknown ~ CLINICAL HISTORY: pain 3 views lumbar spine Comparison: MR/SR - MR LUMBAR SPINE WO CON - 09/21/24 08:11 EST Findings: Normal vertebral body alignment. No acute fractures or dislocation. Vertebral body heights appear well-maintained. Mild disc and moderate facet degenerative changes. Prominent aortic calcifications. Gaseous distention of multiple small bowel loops suggesting mild ileus pattern. IMPRESSION: No acute fracture in the lumbar spine. This document has been electronically signed by: Sandie Castro DO on 03/13/2025 16:47:08 Ordering Physician: Derrell Good Date of Service: 03/13/25 Procedure(s): XR thoracic spine 3V Accession Number(s): [id number] cc: Derrell Good; Physician,Unknown ~ CLINICAL HISTORY: pain 3 views thoracic spine Comparison: None Findings: Normal vertebral body alignment. No acute fractures or dislocation. Vertebral body heights appear maintained. Moderate degenerative changes. On the swimmer's view, there is nonspecific artifact projecting over the posterior elements of C2. IMPRESSION: No acute fracture in the thoracic spine. This document has been electronically signed by: Sandie Castro DO on 03/13/2025 16:45:36 Report Number: [id number]: Total DLP = 644.00 mGy-cm CLINICAL HISTORY: Fall on steps CT lumbar spine without contrast Comparison: None Findings: No acute fracture or dislocation. Posterior alignment is normal. Mild degenerative change. No radiopaque foreign bodies. Impression: No acute processes This document has been electronically signed by: Tai Toney MD on 03/13/2025 17:29:47 CLINICAL HISTORY: Fall on steps CT thoracic spine without contrast Comparison: None Findings: No acute fracture or dislocation. Posterior alignment is normal. No significant degenerative change. Old rib fracture deformities. No radiopaque foreign bodies. Impression: No acute processes This document has been electronically signed by: Tai Toney MD on 03/13/2025 17:28:13 Discharge Plan Discharge Clinical Impression: Back pain Patient Disposition: Home, Self-Care Instructions: Back Pain (ED) Additional Instructions: As we discussed, you were seen today for lower back pain. Your XRs of your thoracic/lumbar spine and CT of your thoracic/lumbar spine were unremarkable for trauma. Your lab work was reassuring. Please follow up with your primary doctor within the next 1 - 2 days to discuss your recent emergency department visit and for re-evaluation. Return to the emergency department for: Worsening pain Fever Numbness/tingling/weakness in your arms or legs Vomiting Prescriptions: No Action (DME) disposable gloves Misc See Rx Instructions .Route Qty: 1000 3RF Rx Instructions: As directed (DME) adult pullups medium See Rx Instructions .Route .MEDSUPPLY Qty: 120 11RF Rx Instructions: As directed (DME) diaper,brief,adult,disposable Misc See Rx Instructions .Route Qty: 120 0RF Rx Instructions: As directed epinephrine [EpiPen 2-Kamaljit] 0.3 mg/0.3 mL auto-injector 0.3 mg IM ONCE PRN (Reason: anaphylaxis) 30 Days Qty: 2 0RF miscellaneous medical supply Misc 1 ea miscellaneous DAILY 99 Days Qty: 1 0RF (DME) cane Device See Rx Instructions .Route Qty: 1 0RF Rx Instructions: As directed (DME) soft neck brace See Rx Instructions .Route .MEDSUPPLY Qty: 1 0RF Rx Instructions: As directed (DME) back brace Misc See Rx Instructions .Route Qty: 1 0RF Rx Instructions: As directed (DME) incontinence pad, liner, disp Pad See Rx Instructions .Route Qty: 200 1RF Rx Instructions: As directed Trelegy Ellipta 200-62.5-25 mcg blister with device 1 inh inhalation DAILY 30 Days Qty: 60 12RF (DME) disposable face masks See Rx Instructions .Route .MEDSUPPLY Qty: 1 0RF Rx Instructions: As directed fluticasone furoate-vilanterol [Breo Ellipta] 200-25 mcg/dose blister with device 1 inh inhalation DAILY 30 Days Qty: 60 11RF (DME) Knee Support Brace Misc See Rx Instructions .Route Qty: 1 0RF Rx Instructions: Need 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 municipal engineer left knee brace with medial support diphenhydramine HCl [Banophen] 25 mg capsule 25 mg PO Q8H 90 Days Qty: 270 3RF (DME) round raised toilet seat See Rx Instructions .Route .MEDSUPPLY Qty: 1 0RF Rx Instructions: As directed montelukast 10 mg tablet 10 mg PO DAILY 90 Days Qty: 90 1RF Wescaps 1 mg capsule 1 cap PO DAILY 90 Days Qty: 90 1RF triamcinolone acetonide 0.1 % cream 1 appl topical BID 30 Days Qty: 80 2RF acetaminophen [Pain Relief (acetaminophen)] 500 mg tablet 500 mg PO BID 90 Days Qty: 180 2RF lisinopril 2.5 mg tablet 2.5 mg PO DAILY 90 Days Qty: 90 1RF acetaminophen-codeine 300-30 mg tablet 1 tab PO Q8H PRN (Reason: pain) 4 Days Qty: 12 0RF folic acid 1 mg tablet 1 mg PO DAILY 90 Days Qty: 90 0RF furosemide 20 mg tablet 20 mg PO DAILY 90 Days Qty: 90 0RF gabapentin 400 mg capsule 400 mg PO DAILY 30 Days Qty: 30 3RF cholecalciferol (vitamin D3) 50 mcg (2,000 unit) capsule 50 mcg PO DAILY 90 Days Qty: 90 1RF magnesium oxide 400 mg magnesium capsule 400 mg PO BEDTIME 90 Days Qty: 90 2RF omeprazole 20 mg capsule,delayed release(DR/EC) 20 mg PO DAILY 90 Days Qty: 90 0RF lidocaine 5 % adhesive patch,medicated 1 patch topical DAILY 30 Days Qty: 30 3RF Rx Instructions: leave on most painful area for up to 12 hrs alendronate [Fosamax] 70 mg tablet 70 mg PO QWEEK 84 Days Qty: 12 1RF baclofen 10 mg tablet 20 mg PO BEDTIME 90 Days Qty: 180 1RF (DME) EXERCISE BIKE See Rx Instructions .Route .MEDSUPPLY Qty: 1 0RF Rx Instructions: As directed loperamide 2 mg capsule 2 mg PO Q8H PRN (Reason: loose stool) 7 Days Qty: 21 1RF (DME) bed pads See Rx Instructions .Route .MEDSUPPLY Qty: 120 11RF Rx Instructions: As directed Eliquis 5 mg tablet 5 mg PO BID 90 Days Qty: 180 0RF (DME) Soft TLSO with shoulder straps See Rx Instructions .Route .MEDSUPPLY Qty: 1 0RF Rx Instructions: As directed dextromethorphan-guaifenesin [Robitussin Cough-Chest Feliciano DM] 5-100 mg/5 mL liquid 10 ml PO Q4-8H PRN (Reason: cough) Qty: 500 0RF clonazepam 1 mg tablet 0.5 mg PO BID (DME) Ultra-Light Rollator Misc See Rx Instructions .Route Qty: 1 0RF Rx Instructions: As directed (DME) compr.stocking,knee,long,large Misc See Rx Instructions .Route Qty: 2 0RF Rx Instructions: As directed zolpidem 10 mg tablet 5 mg PO BEDTIME albuterol sulfate [Ventolin HFA] 90 mcg/actuation HFA aerosol inhaler 2 puff inhalation QID PRN (Reason: shortness of breath or wheezing) 30 Days Qty: 18 11RF desvenlafaxine succinate 50 mg tablet extended release 24 hr 50 mg PO DAILY primidone 50 mg tablet 100 mg PO TID prednisone 10 mg tablet 10 mg PO DIRECTED 6 Days Qty: 12 0RF Rx Instructions: Take 3 tablets x2 days, 2 tablets x2 days, 1 tablet x2 days oxybutynin chloride 15 mg tablet extended release 24hr 15 mg PO DAILY 90 Days Qty: 90 1RF Zepbound 2.5 mg/0.5 mL pen injector 2.5 mg subcut QWEEK 28 Days Qty: 2 0RF Rx Instructions: for 4 weeks (DME) humidifiers [Cool Mist Humidifier] Misc See Rx Instructions .Route Qty: 1 0RF Rx Instructions: As directed topiramate 200 mg tablet 200 mg PO BID 90 Days Qty: 180 1RF Print Language: Chadian
--- NOTE | 2025-03-13 17:29 | PC.NURSE ---
64 y/o F patient; PMH COPD, obesity, HTN, seizure disorder, HIV, polysubstance abuse, hx DVT on Eliquis; presents from home via EMS reporting lower back pain since 03/03/2025. The patient states she slipped going down the stairs approx 3 steps total and landed onto her mid/lower back. She denies numbness/tingling/weakness of her lower extremities, bowel or bladder incontinence, or perineum. Patient alert and arrousable to verbal stimuli. Respirations even and non-labored. Abdomen large soft, non-tender with positive bowel sounds. Positive pedal pulses with no edema noted.
[2025-03-13 17:41] LABS: MANUAL DIFF FLAG NO
[2025-03-13 17:45] LABS: Basophils Percent Auto 0.6 % (0-2); Eosinophils Absolute Auto 0.4 X10*3/uL (0.0-0.4); Hemoglobin 10.6 g/dl (12.0-16.0); Imm Gran Abs Auto 0.02 X10*3/uL (0.00-0.03); Imm Gran Pct Auto 0.3 % (0.0-0.4); Lymphocytes Absolute Auto 1.9 X10*3/uL (1.2-4.9); Lymphocytes Percent Auto 27.1 % (20-40); Mean Corpuscular HGB Conc 34.2 g/dl (31.0-35.0); Mean Corpuscular Hemoglobin 31.8 pg (27.0-33.0); Mean Corpuscular Volume 93.1 fL (80.0-98.0); Mean Platelet Volume 9.1 fL (9.4-12.3); Monocytes Absolute Auto 1.1 X10*3/uL (0.1-1.2); Monocytes Percent Auto 15.2 % (2-11); Neutrophils Absolute Auto 3.6 x10*3/uL (2.0-8.3); Neutrophils Percent Auto 50.8 % (45-73); Platelet Count 226 X10*3/uL (160-400); Red Blood Count 3.33 X10*6/uL (4.20-5.50); Red Cell Distribution Width 14.3 % (11.0-16.0)
[2025-03-13 17:52] LABS: Anion Gap 10 (12-20); Blood Urea Nitrogen 14 mg/dL (9-16); C Reactive Protein 1.29 mg/dL (< or = 0.50); Carbon Dioxide 26 mmol/L (22-29); Chloride 97 mmol/L (96-108); Creatinine Clr Calc Pharmacy 56.5; Estimated Glomerular Filt Rate 51; Glucose Random 106 mg/dL (60-115); Potassium 4.4 mmol/L (3.3-5.1); Sodium 129 mmol/L (135-145)
[2025-03-13 18:08] VITALS: BP 124/67; PULSE 65; O2SAT 97
[2025-03-13 18:19] LABS: Erythrocyte Sedimentation Rate 23 MM/HR (0-20)
[2025-03-13 18:30] VITALS: BP 124/67; PULSE 65; RESP 20; TEMP 36.1; O2SAT 97
== END 2025-03-13 18:31 | disposition home or self-care (01) ==
PROVIDERS: Emergency Provider Emergency Medicine
DX: M54.50 Low back pain, unspecified (principal); M54.6 Pain in thoracic spine; F17.210 Nicotine dependence, cigarettes, uncomplicated; Z86.718 Personal history of other venous thrombosis and embolism; Z79.899 Other long term (current) drug therapy; Z79.01 Long term (current) use of anticoagulants
CPT/HCPCS: 36415; 72072; 72100; 72128; 72131; 80048; 85025; 85652; 86140; 99284

== ENCOUNTER → 2025-03-13 15:00 | Outpatient (BNV) | payer OTHER, SELFPAY | PROVIDERS: Emergency Provider Emergency Medicine; Visit Provider Radiology Diagnostic Radiology | DX: M54.6 Pain in thoracic spine (principal); M54.9 Dorsalgia, unspecified | CPT/HCPCS: 72072; 72100; 72128; 72131 ==

== ENCOUNTER 2025-03-25 14:57 | Emergency (ER) | payer OTHER, SELFPAY ==
--- NOTE | ~2025-03-25 | CT_ITS ---
CLINICAL HISTORY: fall headstrike with AC CT head without contrast. COMPARISON: CT head dated 04/11/24 at 18:30 EDT FINDINGS: Layering fluid present within the sphenoid sinus. Mucosal thickening present within the maxillary sinuses and ethmoid sinuses. Mastoid air cells are clear. No calvarial fracture. No evidence for mass or mass effect. No intracranial hemorrhage or abnormal extra-axial fluid collection. No evidence of hydrocephalus. The basilar cisterns are patent. Posterior fossa appears unremarkable. IMPRESSION: 1. No acute intracranial findings. This document has been electronically signed by: Emerson Myers MD on 03/25/2025 16:54:33
--- NOTE | ~2025-03-25 | XR_ITS ---
CLINICAL HISTORY: fall thoracic pain 2 views thoracic spine Comparison:03/13/2025 Findings: No fractures or dislocations. Normal vertebral body alignment. No significant arthritic change. Costovertebral joints and pedicles are normal. Impression: Unremarkable thoracic spine. No signs of acute skeletal trauma. This document has been electronically signed by: Barney Johnson MD on 03/25/2025 17:44:37
--- NOTE | ~2025-03-25 | XR_ITS ---
CLINICAL HISTORY: fall, elbow pain 3 views left elbow Comparison: 02/14/2024 06:38 PM EDT: CR CDT) Findings: No fractures or dislocations. No joint effusion. No significant arthritic change. No radiopaque foreign body. Impression: Normal left elbow 3 views right elbow Comparison: 02/14/2024 06:46 PM EDT: CRSR: XR ELBOW RT MIN 3V (05:46 PM CDT) Findings: No fractures or dislocations No joint effusion No significant arthritic change No radiopaque foreign body Impression: Normal right elbow This document has been electronically signed by: Barney Johnson MD on 03/25/2025 17:30:13
--- NOTE | ~2025-03-25 | CT_ITS ---
CLINICAL HISTORY: fall cervical neck pain CT cervical spine without contrast. COMPARISON: CT cervical spine dated 10/19/23 at 16:42 EST FINDINGS: Normal vertebral body alignment. Vertebral body heights are maintained. Skull base and intracranial structures appear normal. Calcified plaque present at the carotid bulb on the left. C2-C3: No significant neuroforaminal narrowing or spinal canal stenosis. C3-C4: No significant neuroforaminal narrowing or spinal canal stenosis. C4-C5: Anterior marginal osteophytes. Uncovertebral joint hypertrophy. Moderate bilateral neural foraminal narrowing. C5-C6: Anterior marginal osteophytes. Uncovertebral joint hypertrophy. [id number] right and moderate left neural foraminal narrowing. C6-C7: Anterior marginal osteophytes. Uncovertebral joint hypertrophy. Moderate bilateral neural foraminal narrowing, [id number]. IMPRESSION: 1. No evidence of acute injury to the cervical spine. This document has been electronically signed by: Emerson Myers MD on 03/25/2025 16:58:50
--- NOTE | ~2025-03-25 | XR_ITS ---
CLINICAL HISTORY: pain, trauma 3 views lumbar spine Comparison: CR - XR LUMBAR SPINE 2-3V - 03/13/2025 03:48 PM EDT Findings: No fractures. Normal vertebral body alignment. No significant arthritic change. Sacroiliac joints unremarkable. Impression: Mild posterior facet hypertrophy at L5-S1, otherwise unremarkable lumbar spine. This document has been electronically signed by: Barney Johnson MD on 03/25/2025 18:24:33
[2025-03-25 15:13] VITALS: BP 124/67; PULSE 76; RESP 18; TEMP 36.2; O2SAT 97; BMI 36.8
--- NOTE | 2025-03-25 15:14 | ED_ITS ---
HPI - General Adult General Chief complaint: Fall Stated complaint: Head injury Time Seen by Provider: 03/25/25 16:16 Source: patient Limitations: no limitations History of Present Illness ED Provider: Mari Smith PA-C HPI narrative: 64-year-old female with a history of morbid obesity, DVT on Eliquis, polysubstance abuse, myofascial pain syndrome involving the thoracic spine, prior compression fractures of the thoracic spine, Osteoarthritis, chronic knee pain, chronic neck pain with stenosis within the cervical region, peripheral polyneuropathy, Parkinson's disease, underlying gait instability using a walker to ambulate, seizure disorder, anxiety and depression who presents after fall. Patient states she let go of her walker, while walking over curb, she subsequently fell. She did strike her head, there was no loss consciousness. Patient complains of posterior headache, neck pain and diffuse back pain. Related Data Home Medications ?Medication ?Instructions ?Recorded ?Confirmed clonazepam 1 mg tablet 0.5 mg PO BID 10/31/22 12/14/24 desvenlafaxine succinate 50 mg 50 mg PO DAILY 07/30/24 12/14/24 tablet,extended release 24 hr primidone 50 mg tablet 100 mg PO TID 10/26/24 12/14/24 zolpidem 10 mg tablet 5 mg PO BEDTIME 10/26/24 12/14/24 Previous Rx's ?Medication ?Instructions ?Recorded disposable gloves #1,000 ea 04/02/23 adult pullups #120 ea 04/25/23 diaper,brief,adult,disposable #120 ea 05/20/23 epinephrine 0.3 mg/0.3 mL 0.3 mg (0.3 mL) IM ONCE PRN 05/29/23 injection, auto-injector (EpiPen anaphylaxis 30 days #2 ea 2-Kamaljit) walker (Ultra-Light Rollator misc) #1 ea 07/03/23 miscellaneous medical supply 1 ea miscellaneous DAILY 99 days 10/28/23 #1 ea compr.stocking,knee,long,large #2 ea 11/07/23 cane #1 ea 11/13/23 back brace #1 ea 12/02/23 soft neck brace #1 ea 12/02/23 incontinence pad, liner, disp #200 ea 02/19/24 albuterol sulfate 90 mcg/actuation 2 puff inhalation QID PRN 03/24/24 aerosol inhaler (Ventolin HFA) shortness of breath or wheezing 30 days #18 grams disposable face masks #1 ea 03/26/24 fluticasone fur. 200 mcg-umeclid 1 inh inhalation DAILY 30 days #60 03/26/24 62.5 mcg-vilant 25 mcg ea inhalat.powder (Trelegy Ellipta) fluticasone furoate 200 1 inh inhalation DAILY 30 days #60 04/06/24 mcg-vilanterol 25 mcg/dose ea inhalation powder (Breo Ellipta) diphenhydramine HCl 25 mg capsule 25 mg PO Q8H allergies 90 days 06/23/24 (Banophen) #270 caps round raised toilet seat #1 ea 07/09/24 montelukast 10 mg tablet 10 mg PO DAILY 90 days #90 tabs 11/03/24 vitamin B complex and vitamin C 1 cap PO DAILY 90 days #90 caps 11/09/24 no.20-folic acid 1 mg capsule (Lumicell) triamcinolone acetonide 0.1 % 1 appl topical BID 30 days #80 11/12/24 topical cream grams acetaminophen 500 mg tablet (Pain 500 mg PO BID for fever 90 days 11/25/24 Relief (acetaminophen)) #180 tabs humidifiers (Cool Mist Humidifier) #1 11/30/24 tirzepatide (weight loss) 2.5 2.5 mg (0.5 mL) subcut QWEEK 4 11/30/24 mg/0.5 mL subcutaneous pen weeks #2 mL injector (Zepbound) topiramate 200 mg tablet 200 mg PO BID 90 days #180 tabs 11/30/24 acetaminophen 300 mg-codeine 30 mg 1 tab PO Q8H PRN pain 4 days #12 12/07/24 tablet tabs lisinopril 2.5 mg tablet 2.5 mg PO DAILY 90 days #90 tabs 12/07/24 folic acid 1 mg tablet 1 mg PO DAILY 90 days #90 tabs 12/21/24 furosemide 20 mg tablet 20 mg PO DAILY 90 days #90 tabs 12/21/24 gabapentin 400 mg capsule 400 mg PO DAILY 30 days #30 caps 01/04/25 oxybutynin chloride 15 mg 15 mg PO DAILY 90 days #90 tabs 01/05/25 tablet,extended release 24 hr prednisone 10 mg tablet 10 mg PO DIRECTED 6 days #12 01/05/25 tabs cholecalciferol (vitamin D3) 50 50 mcg PO DAILY 90 days #90 caps 01/15/25 mcg (2,000 unit) capsule magnesium oxide 400 mg PO BEDTIME 90 days #90 caps 01/15/25 omeprazole 20 mg capsule,delayed 20 mg PO DAILY 90 days #90 caps 01/19/25 release alendronate 70 mg tablet (Fosamax) 70 mg PO QWEEK 12 weeks #12 tabs 01/20/25 lidocaine 5 % topical patch 1 patch topical DAILY 30 days #30 01/20/25 ea baclofen 10 mg tablet 20 mg (2 x 10 mg) PO BEDTIME 90 01/27/25 days #180 tabs EXERCISE BIKE #1 ea 02/01/25 loperamide 2 mg capsule 2 mg PO Q8H PRN loose stool 7 days 02/01/25 #21 caps bed pads #120 ea 02/03/25 apixaban 5 mg tablet (Eliquis) 5 mg PO BID 90 days #180 tabs 02/09/25 Soft TLSO with shoulder straps #1 ea 03/04/25 dextromethorphan-guaifenesin 5 10 ml PO Q4-8H PRN cough #500 mL 03/11/25 mg-100 mg/5 mL oral liquid (Robitussin Cough-Chest Congestion DM) leg brace (Knee Support Brace) #1 ea 03/23/25 Allergies Allergy/AdvReac Type Severity Reaction Status Date / Time cat dander [CATS] Allergy Mild HAYFEVER Verified 03/25/25 15:18 Chocolate Allergy Mild HEADACHES Verified 03/25/25 15:18 dog dander [DOGS] Allergy Mild HAYFEVER Verified 03/25/25 15:18 Environmental Allergy Mild HAYFEVER Uncoded 03/25/25 14:14 yellow jackets Allergy Anaphylaxis Uncoded 03/25/25 14:14 Review of Systems Review of Systems: Yes all other systems are reviewed and are negative Constitutional: Constitutional: Denies fatigue, Denies fever(s) and Reports headache(s) ENT: Denies dizziness, Reports headache(s) and Reports neck pain Cardiovascular: Cardiovascular: Denies chest pain and Denies dyspnea Respiratory: Respiratory: Denies dyspnea Gastrointestinal: Gastrointestinal: Denies abdominal pain, Denies nausea and Denies vomiting Musculoskeletal: Musculoskeletal: Reports back pain, Reports neck pain, Denies numbness, Denies radiating pain into limb and Denies tingling Neurologic: Denies dizziness, Reports headache(s), Denies numbness and Denies tingling Endocrine: Endocrine: Denies fatigue PMFSH Past Medical History Attestation statement: The following information was validated with the patient. Medical History Vitamin B12 deficiency Hx of deep venous thrombosis Microcytic anemia COPD with emphysema Prerenal azotemia Toxic metabolic encephalopathy Transaminitis Allergies Chronic allergic rhinitis Asthma-COPD overlap syndrome COPD exacerbation COVID-19 History of abnormal cervical Pap smear Spinal stenosis, cervical region Peripheral polyneuropathy Spondylosis of cervical spine Spondylosis of lumbar spine Cocaine abuse Alcohol abuse Hepatitis HIV (human immunodeficiency virus infection) Heart murmur History of cocaine abuse History of heroin abuse Hydradenitis Former cigarette smoker Recovering alcoholic GERD (gastroesophageal reflux disease) Lumbago with sciatica, left side Arthritis Back pain On anticoagulant therapy DVT (deep venous thrombosis) History of celiac disease Anxiety Panic attacks Depression PTSD (post-traumatic stress disorder) Parkinson disease History of frequent headaches Seizure Asthma Surgical History H/O excision of ganglion cyst Hx of esophagogastroduodenoscopy History of carpal tunnel surgery of left wrist Hx of nasal septoplasty History of hemorrhoidectomy Hx of colonoscopy Family History Family History Mother No problems noted. Social History Social History Housing: Apartment Are you a primary palliative care physician to a significant other at home: No Do you presently have visiting nurse or other home services: Yes Alcohol intake: former Year quit: 2003 Comment: was seen at [facility]-called for note Patient Tobacco Use Status: Current everyday Tobacco user Tobacco use type: Cigarette Cigarette Packs Per Day: 0.5 Cigarettes Per Day: 10 Years Smoked: 45 e-Cigarette/Vaping Use: Former Use Second Hand Smoke Exposure: Yes Advance Directives: No Advance Directives Information Provided: Yes service: No Current occupational status: disabled Cognitive needs: Yes (back brace) Hearing needs: No Vision needs: Yes Physical Exam ED Vital Signs: Vital Signs - 24 hr 03/25/25 15:13 03/25/25 17:01 Temperature 97.1 F 97.3 F Pulse Rate 76 67 Respiratory Rate 18 20 Blood Pressure 124/67 138/68 Pulse Oximetry 97 97 Oxygen Delivery Method Room Air Room Air BMI result Body Mass Index 36.8 Const Other: Alert Orientation/consciousness: patient oriented x3 Resp Effort & Inspection: normal respiratory effort Cardio Other: Normal peripheral perfusion Skin Other: Warm dry no rash Neuro Other: Antalgic gait but walks readily without assistance General: patient oriented x3, no focal motor deficits and CN's II-XI intact bilaterally Extrem Other: Strength 5/5 bilateral upper and lower extremities with resistance Psych Other: Somewhat uncooperative Course Course Course Narrative: This is a rapid medical exam performed by Matteo Pizano NP: Additional HPI, ROS, PE not included below will be deferred to primary provider. 64 yo female with PMHx of asthma/COPD, DVT, HTN, MDD, parkinson disease, lumbar/cervical spondylosis, presents to the ED due to falling off the curb with headstrike without LOC, B/L elbows, and thoracic back pain after fall. She states increase in fatigue after fall, and B/L leg pain. She is on eliquis. Also requesting covid test due to 3 days of throat pain when swallowing. PE: small abrasions B/L elbows with full ROM, A&O x3 Plan: Ct imaging, Xray B/L elbow, thoracic spine Reevaluation(s) Reevaluation #1: Patient was upset that she was not receiving narcotics, she refused a muscle relaxant, she walked out without results from her lumbar film. I had already assessed the patient, and I relayed findings on elbow x-rays, thoracic x-ray and CT brain and cervical spine. Medical Decision Making Medical Decision Making MDM Narrative: 64-year-old female with a history of morbid obesity, DVT on Eliquis, polysubstance abuse, myofascial pain syndrome involving the thoracic spine, prior compression fractures of the thoracic spine, Osteoarthritis, chronic knee pain, chronic neck pain with stenosis within the cervical region, peripheral polyneuropathy, Parkinson's disease, underlying gait instability using a walker to ambulate, seizure disorder, anxiety and depression who presents after fall. Patient states she let go of her walker, while walking over curb, she subsequently fell. She did strike her head, there was no loss consciousness. Patient complains of posterior headache, neck pain and diffuse back pain. Problem: Chronic pain, obesity, anticoagulated, polysubstance abuse History: Per patient I have considered the following differential diagnoses: Intracranial hemorrhage, cervical spine injury, compression fracture, fracture dislocation, contusion, sprain , medication seeking behavior Plan: Partial imaging was ordered from triage in the way of a CT scan of the brain and the cervical spine, x-rays of the elbow and thoracic spine were obtained as well. Thus far everything is negative. The patient now complains of lumbar pain, adding on x-rays. We will be treating with anti-inflammatory and a muscle relaxant. The patient is continuously asking for narcotics. I did relate to the patient that thus far she has musculoskeletal pain, there have been no other acute injuries in the way of the fracture etc.. I have independently reviewed the following tests: X-ray elbows:indings: No fractures or dislocations. No joint effusion. No significant arthritic change. No radiopaque foreign body. Impression: Normal left elbow 3 views right elbow Comparison: 02/14/2024 06:46 PM EDT: CRSR: XR ELBOW RT MIN 3V (05:46 PM CDT) Findings: No fractures or dislocations No joint effusion No significant arthritic change No radiopaque foreign body Impression: Normal right elbow X-ray T-spine: Findings: No fractures or dislocations. Normal vertebral body alignment. No significant arthritic change. Costovertebral joints and pedicles are normal. Impression: Unremarkable thoracic spine. No signs of acute skeletal trauma. X-ray lumbar spine: Findings: No fractures. Normal vertebral body alignment. No significant arthritic change. Sacroiliac joints unremarkable. Impression: Mild posterior facet hypertrophy at L5-S1, otherwise unremarkable lumbar spine. CT brain: FINDINGS: Layering fluid present within the sphenoid sinus. Mucosal thickening present within the maxillary sinuses and ethmoid sinuses. Mastoid air cells are clear. No calvarial fracture. No evidence for mass or mass effect. No intracranial hemorrhage or abnormal extra-axial fluid collection. No evidence of hydrocephalus. The basilar cisterns are patent. Posterior fossa appears unremarkable. IMPRESSION: 1. No acute intracranial findings. CT cervical spine:FINDINGS: Normal vertebral body alignment. Vertebral body heights are maintained. Skull base and intracranial structures appear normal. Calcified plaque present at the carotid bulb on the left. C2-C3: No significant neuroforaminal narrowing or spinal canal stenosis. C3-C4: No significant neuroforaminal narrowing or spinal canal stenosis. C4-C5: Anterior marginal osteophytes. Uncovertebral joint hypertrophy. Moderate bilateral neural foraminal narrowing. C5-C6: Anterior marginal osteophytes. Uncovertebral joint hypertrophy. [id number] right and moderate left neural foraminal narrowing. C6-C7: Anterior marginal osteophytes. Uncovertebral joint hypertrophy. Moderate bilateral neural foraminal narrowing, [id number]-right. IMPRESSION: 1. No evidence of acute injury to the cervical spine. Lab Data Labs: Lab Results 03/25/25 Range/Units 17:11 Influenza Type A (PCR) NEGATIVE (Negative) Influenza Type B (PCR) NEGATIVE (Negative) RSV RNA Qual (PCR) NEGATIVE (Negative) SARS-CoV-2 RNA (RT-PCR) NEGATIVE (Negative) S. pyogenes GrpA GERALD Negative (Negative) Discharge Plan Discharge Clinical Impression: Back pain Patient Disposition: Left W/O Completing Treatment Prescriptions: No Action (DME) disposable gloves Misc See Rx Instructions .Route Qty: 1000 3RF Rx Instructions: As directed (DME) adult pullups medium See Rx Instructions .Route .MEDSUPPLY Qty: 120 11RF Rx Instructions: As directed (DME) diaper,brief,adult,disposable Misc See Rx Instructions .Route Qty: 120 0RF Rx Instructions: As directed epinephrine [EpiPen 2-Kamaljit] 0.3 mg/0.3 mL auto-injector 0.3 mg IM ONCE PRN (Reason: anaphylaxis) 30 Days Qty: 2 0RF miscellaneous medical supply Misc 1 ea miscellaneous DAILY 99 Days Qty: 1 0RF (DME) cane Device See Rx Instructions .Route Qty: 1 0RF Rx Instructions: As directed (DME) soft neck brace See Rx Instructions .Route .MEDSUPPLY Qty: 1 0RF Rx Instructions: As directed (DME) back brace Misc See Rx Instructions .Route Qty: 1 0RF Rx Instructions: As directed (DME) incontinence pad, liner, disp Pad See Rx Instructions .Route Qty: 200 1RF Rx Instructions: As directed Trelegy Ellipta 200-62.5-25 mcg blister with device 1 inh inhalation DAILY 30 Days Qty: 60 12RF (DME) disposable face masks See Rx Instructions .Route .MEDSUPPLY Qty: 1 0RF Rx Instructions: As directed fluticasone furoate-vilanterol [Breo Ellipta] 200-25 mcg/dose blister with device 1 inh inhalation DAILY 30 Days Qty: 60 11RF diphenhydramine HCl [Banophen] 25 mg capsule 25 mg PO Q8H 90 Days Qty: 270 3RF (DME) round raised toilet seat See Rx Instructions .Route .MEDSUPPLY Qty: 1 0RF Rx Instructions: As directed montelukast 10 mg tablet 10 mg PO DAILY 90 Days Qty: 90 1RF Wescaps 1 mg capsule 1 cap PO DAILY 90 Days Qty: 90 1RF triamcinolone acetonide 0.1 % cream 1 appl topical BID 30 Days Qty: 80 2RF acetaminophen [Pain Relief (acetaminophen)] 500 mg tablet 500 mg PO BID 90 Days Qty: 180 2RF lisinopril 2.5 mg tablet 2.5 mg PO DAILY 90 Days Qty: 90 1RF acetaminophen-codeine 300-30 mg tablet 1 tab PO Q8H PRN (Reason: pain) 4 Days Qty: 12 0RF folic acid 1 mg tablet 1 mg PO DAILY 90 Days Qty: 90 0RF furosemide 20 mg tablet 20 mg PO DAILY 90 Days Qty: 90 0RF gabapentin 400 mg capsule 400 mg PO DAILY 30 Days Qty: 30 3RF cholecalciferol (vitamin D3) 50 mcg (2,000 unit) capsule 50 mcg PO DAILY 90 Days Qty: 90 1RF magnesium oxide 400 mg magnesium capsule 400 mg PO BEDTIME 90 Days Qty: 90 2RF omeprazole 20 mg capsule,delayed release(DR/EC) 20 mg PO DAILY 90 Days Qty: 90 0RF lidocaine 5 % adhesive patch,medicated 1 patch topical DAILY 30 Days Qty: 30 3RF Rx Instructions: leave on most painful area for up to 12 hrs alendronate [Fosamax] 70 mg tablet 70 mg PO QWEEK 84 Days Qty: 12 1RF baclofen 10 mg tablet 20 mg PO BEDTIME 90 Days Qty: 180 1RF (DME) EXERCISE BIKE See Rx Instructions .Route .MEDSUPPLY Qty: 1 0RF Rx Instructions: As directed loperamide 2 mg capsule 2 mg PO Q8H PRN (Reason: loose stool) 7 Days Qty: 21 1RF (DME) bed pads See Rx Instructions .Route .MEDSUPPLY Qty: 120 11RF Rx Instructions: As directed Eliquis 5 mg tablet 5 mg PO BID 90 Days Qty: 180 0RF (DME) Soft TLSO with shoulder straps See Rx Instructions .Route .MEDSUPPLY Qty: 1 0RF Rx Instructions: As directed dextromethorphan-guaifenesin [Robitussin Cough-Chest Feliciano DM] 5-100 mg/5 mL liquid 10 ml PO Q4-8H PRN (Reason: cough) Qty: 500 0RF (DME) Knee Support Brace Misc See Rx Instructions .Route Qty: 1 0RF Rx Instructions: Need for count team clerk left knee brace with medial support clonazepam 1 mg tablet 0.5 mg PO BID (DME) Ultra-Light Rollator Misc See Rx Instructions .Route Qty: 1 0RF Rx Instructions: As directed (DME) compr.stocking,knee,long,large Misc See Rx Instructions .Route Qty: 2 0RF Rx Instructions: As directed zolpidem 10 mg tablet 5 mg PO BEDTIME albuterol sulfate [Ventolin HFA] 90 mcg/actuation HFA aerosol inhaler 2 puff inhalation QID PRN (Reason: shortness of breath or wheezing) 30 Days Qty: 18 11RF desvenlafaxine succinate 50 mg tablet extended release 24 hr 50 mg PO DAILY primidone 50 mg tablet 100 mg PO TID prednisone 10 mg tablet 10 mg PO DIRECTED 6 Days Qty: 12 0RF Rx Instructions: Take 3 tablets x2 days, 2 tablets x2 days, 1 tablet x2 days oxybutynin chloride 15 mg tablet extended release 24hr 15 mg PO DAILY 90 Days Qty: 90 1RF Zepbound 2.5 mg/0.5 mL pen injector 2.5 mg subcut QWEEK 28 Days Qty: 2 0RF Rx Instructions: for 4 weeks (DME) humidifiers [Cool Mist Humidifier] Misc See Rx Instructions .Route Qty: 1 0RF Rx Instructions: As directed topiramate 200 mg tablet 200 mg PO BID 90 Days Qty: 180 1RF Print Language: Upper Sorbian
[2025-03-25 17:01] VITALS: BP 138/68; PULSE 67; RESP 20; TEMP 36.3; O2SAT 97
[2025-03-25 17:26] LABS: IDNOW Serial# 58CA691E; Strep A Nucleic Acid Negative (Negative)
[2025-03-25 17:54] LABS: Influenza A PCR NEGATIVE (Negative); Influenza B PCR NEGATIVE (Negative); Resp Syncy Virus RNA Qual PCR NEGATIVE (Negative); SARS COV2 PCR INHOUSE NEGATIVE (Negative)
--- NOTE | 2025-03-25 18:20 | PC.NURSE ---
patient requested this RN to wheelchair her outside to smoke a cigarette, patient educated tat this is a no smoking facility, patient became verbally abusive and stating this RN could push her to the top of the hill so she can smoke. patient educated that that will not be happening. patient stated she did not want medications offered because she takes those at bedtime. patient requested wheelchair to leave, this RN went to notify ED provider patient wants to leave. patient ambulated off of unit with steady gait, without paperwork.
--- NOTE | 2025-03-26 07:52 | ECG_ITS ---
Test Reason : FALL Blood Pressure : */* mmHG Vent. Rate : 69 BPM Atrial Rate : 69 BPM P-R Int : 178 ms QRS Dur : 84 ms QT Int : 394 ms P-R-T Axes : 52 30 53 degrees QTcB Int : 422 ms Normal sinus rhythm Normal ECG When compared with ECG of 11-Apr-2024 17:37, No significant change was found Referred By: Generic ED Physician Electronically Signed By: HAYDEE CA
== END 2025-03-25 18:57 | disposition left against medical advice (07) ==
PROVIDERS: Physician Assistant Medical; Registered Nurse Emergency; Emergency Provider Emergency Medicine; PCP Physician Assistant
DX: M54.9 Dorsalgia, unspecified (principal); R51.9 Headache, unspecified; Z03.818 Encounter for observation for suspected exposure to other biological agents ruled out; I10 Essential (primary) hypertension; G20.A1 Parkinson's disease without dyskinesia, without mention of fluctuations; F14.10 Cocaine abuse, uncomplicated; Z86.718 Personal history of other venous thrombosis and embolism; Z79.899 Other long term (current) drug therapy
CPT/HCPCS: 0241U; 70450; 72070; 72100; 72125; 73070; 87651; 93005; 99283; 99284

== ENCOUNTER → 2025-03-25 15:18 | Outpatient (BNV) | payer OTHER, SELFPAY | PROVIDERS: PCP Physician Assistant; Visit Provider Radiology Diagnostic Radiology | DX: M54.2 Cervicalgia (principal); S09.90XA Unspecified injury of head, initial encounter; M54.50 Low back pain, unspecified; M54.6 Pain in thoracic spine; M25.521 Pain in right elbow; M25.522 Pain in left elbow | CPT/HCPCS: 70450; 72070; 72100; 72125; 73070 ==

== ENCOUNTER → 2025-03-26 07:52 | Outpatient (BNV) | payer OTHER, SELFPAY | PROVIDERS: Emergency Provider Emergency Medicine; PCP Physician Assistant; Visit Provider Internal Medicine | DX: S09.90XA Unspecified injury of head, initial encounter (principal); W19.XXXA Unspecified fall, initial encounter | CPT/HCPCS: 93010 ==

== ENCOUNTER 2025-04-06 15:55 | Emergency (ER) | payer OTHER, SELFPAY ==
--- NOTE | ~2025-04-06 | XR_ITS ---
CLINICAL HISTORY: fall, pain 3 view, pelvis and left hip Comparison: None Findings: No acute fracture or dislocation. No significant arthritic change. The soft tissues are unremarkable. IMPRESSION: No acute findings. This document has been electronically signed by: Miriam Mello MD on 04/06/2025 20:17:09
--- NOTE | ~2025-04-06 | XR_ITS ---
CLINICAL HISTORY: fall pain 2 view left femur Comparison: None Findings: No fractures or dislocations. No knee effusion. No significant arthritic change. No radiopaque foreign body. IMPRESSION: 1. Normal left femur This document has been electronically signed by: Miriam Mello MD on 04/06/2025 20:16:04
--- NOTE | ~2025-04-06 | CT_ITS ---
CLINICAL HISTORY: diffuse midline pain TTP L lat back pain post fall CT thoracic spine without contrast Comparison: CR - XR THORACIC SPINE 2V - 03/25/25 16:38 EDT Findings: Mild multilevel spondylosis with disc space narrowing and osteophytosis causing mildly exaggerated thoracic kyphosis. No acute fractures or dislocations. Chronic healing fractures of the left 5th posterior rib. Normal visualized lungs and mediastinum. Normal upper abdominal contents. Bibasilar atelectatic/dependent changes. IMPRESSION: No evidence of acute fracture or traumatic listhesis of the thoracic spine. Chronic healing fracture of the left 5th posterior rib. Mild multilevel spondylosis causing exaggerated thoracic kyphosis. This document has been electronically signed by: Miriam Mello MD on 04/06/2025 20:13:11
--- NOTE | ~2025-04-06 | CT_ITS ---
CLINICAL HISTORY: fall, on eliquis CT head without contrast Comparison: CT/SR - CT HEAD/BRAIN WO IV CON - 03/25/25 15:53 EDT Findings: No intra-axial mass, midline shift, hydrocephalus, or acute hemorrhage. No significant atrophy-like change or white matter disease. Moderate mucosal thickening and opacification of the bilateral anterior ethmoid air cells, maxillary and sphenoid sinuses. Small air-fluid level within the left maxillary sinus. The orbits are within normal limits. No skull fracture. IMPRESSION: 1. No acute intracranial findings specifically no acute intracranial hemorrhage. 2. Paranasal sinus disease concerning for acute sinusitis. This document has been electronically signed by: Miriam Mello MD on 04/06/2025 20:08:36
[2025-04-06 16:06] VITALS: BP 126/72; PULSE 73; O2SAT 97
[2025-04-06 16:10] VITALS: BP 161/56; PULSE 56; RESP 14; TEMP 36.8; O2SAT 99; BMI 36.7
[2025-04-06 16:39] VITALS: BP 114/43; PULSE 67; RESP 19; TEMP 36.1; O2SAT 97
--- OUTSIDE RECORDS SUMMARY | 2025-04-06 16:50 | XMS_ITS | Patient Health Record ---
Author Organization [facility] Address [address] [place] [address] Care Team Providers Care Manager Language Name Role Phone Chidi Reyes M.D. Primary Care Provider Un available Boris Quinones Unavailable [phone] Allergies Allergen (clinical drug ingredient) Drug/Non Drug Allergy documented on EMR Reaction Allergy Type Onset Date Status DUST/Patient gets allergy shots every week (uncoded) Unknown Allergy Active EVERYTHING OUTSIDE (uncoded) Unknown Allergy Active CATS (uncoded) Unknown Allergy Activ e CHOCOLATE (uncoded) Unknown Allergy Active fluoxetine Prozac Unknown Drug Allergy Active Reason For Referral No Information Medications Medication SIG (Take, Route, Frequency, Duration) Notes [...] bedti me Orally Once a day Active Immunizations Vaccine Route Administration Date Status Comme nts Influenza Unknown 07/19/2018 Administered Influenza Unknown 08/07/2018 Administered Influenza Unknown 07/19/2019 Administered Social History Tobacco Use: Social History Observation Description Date Details (start date - stop date) Current Smoker NA - NA Tobacco Use/Smoking Question Answer Notes Patient is a current smoker How often do you smoke cigarettes? every day How many cigarettes a day do you smoke? 11- Section Notes: Smoker 5 cigs QD; alcohol ab use, but she reports no alcohol use since 11/2013 Smoker 5 cigs QD; alcohol ab use, but she reports no alcohol use since 11/2013 Goes to AA meetings Smoker 5 cigs QD; alcohol ab use, but she reports no alcohol use since 11/2013 Goes to AA meetings Smoker 5 cigs QD; alcohol ab use, but she reports no alcohol use since 11/2013 Goes to AA meetings Stopped smoking 04/2019; alco hol abuse, but she reports no alcohol use since 11/2013 Goes to AA meetings Smoker; alcohol abuse, but she reports no alcohol use since 11/2013 Goes to AA meetings Substance abuse-none since 2013 Problems Problem Type SNOMED Code ICD Code Onset Dates Problem Status W/U Status Risk Notes Problem 670561109 Encounter for screening for malignant neoplasm of colon (Z12.11) Active confirmed Problem 777735526 History of adenomatous polyp of colon (Z86.010) Active confirmed Problem 77470159 Diarrhea (R19.7) Active confirmed Problem 54972823 Weight loss (R63.4) Active confirmed Problem 258959893 Celiac disease (K90.0) Active confirmed Problem 25038926 Constipation, unspecified constipation type (K59.00) Active confirmed Problem 813592242 Positive autoantibody screening for celiac disease (R76.8) Active confirmed Problem 11773521 Diarrhea, unspecified type (R19.7) Active confirmed Plan Of Treatment Pending Test Test Name Order Date CHEM [...] Start Date Coverage End Date [facility] [facility] [address] [place] [id number] LIVIERGenaPARDEEP Self - patient is the insured Medical (General) History Medical History History ICD Code COPD/asthma Denies [place],DM,CVA,renal disease C.difficile in 2008--negative stool spec imens [...] Claudio's esophagus, nor varices Parkinson's disease DVT -2018--on Eliquis Urinary incontinence Parkinson's disease Surgical History Surgery Date(Month/Year) Removal of lymph nodes near the left mason ast Polyps removed from nose
--- NOTE | 2025-04-06 18:43 | ED.FALL ---
HPI - Fall General Chief Complaint: Fall Stated Complaint: Fall Time Seen by Provider: 04/06/25 18:09 Source: patient and EMS Mode of arrival: EMS Limitations: no limitations History of Present Illness ED Provider: Delma Saldana NP HPI Narrative: Patient is a 64-year-old female who presents emergency department via EMS for evaluation. She arrived from EMS on supplemental O2, of unclear certainty as to why, she had no reports of shortness of breath or difficulty breathing there was no hypoxia, at the time of my evaluation her O2 saturation is 99% on room air. Oxygen was removed. When I presented to the room she is resting asleep quietly and easily arouses to verbal stimuli. She states that she had 2 falls yesterday. She states that she was washing up in the bathroom she went to stand up from the toilet to pull her pants up she felt her left leg to be numb in his sleep so she started banging her foot on the floor. She subsequently lost her balance and states that she fell down onto her bilateral hands and knees. After a minute or so she was able to stand up she heard the water trickling so she decided to turn around to turn the water off and then she fell backwards landing into the bath tub with her feet hanging over the edge of the tub. She is adamant that she did not strike her head with this fall however she is anticoagulated on Eliquis. There was no reported loss of consciousness. She was able to get herself out of the bath tub. She decided to call her doctor this morning to let him know that she had experienced the fall and received a call back from them this afternoon advising her to come to the emergency department. There is conflicting reports of her areas of pain that are of concern. She states that she has chronic upper/left-sided back pain but states that it is worse since the fall. She also is complaining of pain to her left hip and left thigh. Initial nursing triage states that she is experiencing left ankle pain and right knee pain. At the time of my evaluation she does not endorse either of these complaints. In fact she has otherwise full range of motion to the left knee, left ankle, and right lower extremity. She denies headache, dizziness, lightheadedness, vision changes, chest pain, shortness of breath nausea, vomiting, abdominal pain, bladder bowel dysfunction, saddle paresthesias, recent URI symptoms, genitourinary symptoms. Related Data Home Medications ?Medication ?Instructions ?Recorded ?Confirmed clonazepam 1 mg tablet 0.5 mg PO BID 10/31/22 12/14/24 desvenlafaxine succinate 50 mg 50 mg PO DAILY 07/30/24 12/14/24 tablet,extended release 24 hr primidone 50 mg tablet 100 mg PO TID 10/26/24 12/14/24 zolpidem 10 mg tablet 5 mg PO BEDTIME 10/26/24 12/14/24 Previous Rx's ?Medication ?Instructions ?Recorded disposable gloves #1,000 ea 04/02/23 adult pullups #120 ea 04/25/23 diaper,brief,adult,disposable #120 ea 05/20/23 miscellaneous medical supply 1 ea miscellaneous DAILY 99 days 10/28/23 #1 ea compr.stocking,knee,long,large #2 ea 11/07/23 cane #1 ea 11/13/23 back brace #1 ea 12/02/23 soft neck brace #1 ea 12/02/23 incontinence pad, liner, disp #200 ea 02/19/24 albuterol sulfate 90 mcg/actuation 2 puff inhalation QID PRN 03/24/24 aerosol inhaler (Ventolin HFA) shortness of breath or wheezing 30 days #18 grams disposable face masks #1 ea 03/26/24 fluticasone fur. 200 mcg-umeclid 1 inh inhalation DAILY 30 days #60 03/26/24 62.5 mcg-vilant 25 mcg ea inhalat.powder (Trelegy Ellipta) fluticasone furoate 200 1 inh inhalation DAILY 30 days #60 04/06/24 mcg-vilanterol 25 mcg/dose ea inhalation powder (Breo Ellipta) diphenhydramine HCl 25 mg capsule 25 mg PO Q8H allergies 90 days 06/23/24 (Banophen) #270 caps round raised toilet seat #1 ea 07/09/24 montelukast 10 mg tablet 10 mg PO DAILY 90 days #90 tabs 11/03/24 vitamin B complex and vitamin C 1 cap PO DAILY 90 days #90 caps 11/09/24 no.20-folic acid 1 mg capsule (Wescaps) acetaminophen 500 mg tablet (Pain 500 mg PO BID for fever 90 days 11/25/24 Relief (acetaminophen)) #180 tabs humidifiers (Cool Mist Humidifier) #1 ea 11/30/24 tirzepatide (weight loss) 2.5 2.5 mg (0.5 mL) subcut QWEEK 4 11/30/24 mg/0.5 mL subcutaneous pen weeks #2 mL injector (Zepbound) topiramate 200 mg tablet 200 mg PO BID 90 days #180 tabs 11/30/24 lisinopril 2.5 mg tablet 2.5 mg PO DAILY 90 days #90 tabs 12/07/24 folic acid 1 mg tablet 1 mg PO DAILY 90 days #90 tabs 12/21/24 furosemide 20 mg tablet 20 mg PO DAILY 90 days #90 tabs 12/21/24 gabapentin 400 mg capsule 400 mg PO DAILY 30 days #30 caps 01/04/25 oxybutynin chloride 15 mg 15 mg PO DAILY 90 days #90 tabs 01/05/25 tablet,extended release 24 hr prednisone 10 mg tablet 10 mg PO DIRECTED 6 days #12 01/05/25 tabs cholecalciferol (vitamin D3) 50 50 mcg PO DAILY 90 days #90 caps 01/15/25 mcg (2,000 unit) capsule magnesium oxide 400 mg PO BEDTIME 90 days #90 caps 01/15/25 omeprazole 20 mg capsule,delayed 20 mg PO DAILY 90 days #90 caps 01/19/25 release alendronate 70 mg tablet (Fosamax) 70 mg PO QWEEK 12 weeks #12 tabs 01/20/25 lidocaine 5 % topical patch 1 patch topical DAILY 30 days #30 01/20/25 ea baclofen 10 mg tablet 20 mg (2 x 10 mg) PO BEDTIME 90 01/27/25 days #180 tabs EXERCISE BIKE #1 ea 02/01/25 loperamide 2 mg capsule 2 mg PO Q8H PRN loose stool 7 days 02/01/25 #21 caps bed pads #120 ea 02/03/25 apixaban 5 mg tablet (Eliquis) 5 mg PO BID 90 days #180 tabs 02/09/25 Soft TLSO with shoulder straps #1 ea 03/04/25 dextromethorphan-guaifenesin 5 10 ml PO Q4-8H PRN cough #500 mL 04/24/25 mg-100 mg/5 mL oral liquid (Robitussin Cough-Chest Congestion DM) epinephrine 0.3 mg/0.3 mL 0.3 mg (0.3 mL) IM ONCE PRN 03/25/25 injection, auto-injector (EpiPen anaphylaxis 30 days #2 ea 2-Kamaljit) walker (Ultra-Light Rollator misc) #1 ea 03/26/25 acetaminophen 300 mg-codeine 30 mg 1 tab PO Q8H PRN pain 4 days #12 03/30/25 tablet tabs leg brace (Knee Support Brace) #1 ea 03/31/25 triamcinolone acetonide 0.1 % 1 appl topical BID 30 days #80 04/02/25 topical cream grams Allergies Allergy/AdvReac Type Severity Reaction Status Date / Time cat dander [CATS] Allergy Mild HAYFEVER Verified 04/06/25 17:15 Chocolate Allergy Mild HEADACHES Verified 04/06/25 17:15 dog dander [DOGS] Allergy Mild HAYFEVER Verified 04/06/25 17:15 Environmental Allergy Mild HAYFEVER Uncoded 04/06/25 17:15 yellow jackets Allergy Anaphylaxis Uncoded 04/06/25 17:15 Review of Systems Review of Systems: Yes all other systems are reviewed and are negative PMFSH Past Medical History Attestation statement: The following information was validated with the patient. Source: old records reviewed Medical History Vitamin B12 deficiency Hx of deep venous thrombosis Microcytic anemia COPD with emphysema Prerenal azotemia Toxic metabolic encephalopathy Transaminitis Allergies Chronic allergic rhinitis Asthma-COPD overlap syndrome COPD exacerbation COVID-19 History of abnormal cervical Pap smear Spinal stenosis, cervical region Peripheral polyneuropathy Spondylosis of cervical spine Spondylosis of lumbar spine Cocaine abuse Alcohol abuse Hepatitis HIV (human immunodeficiency virus infection) Heart murmur History of cocaine abuse History of heroin abuse Hydradenitis Former cigarette smoker Recovering alcoholic GERD (gastroesophageal reflux disease) Lumbago with sciatica, left side Arthritis Back pain On anticoagulant therapy DVT (deep venous thrombosis) History of celiac disease Anxiety Panic attacks Depression PTSD (post-traumatic stress disorder) Parkinson disease History of frequent headaches Seizure Asthma Surgical History H/O excision of ganglion cyst Hx of esophagogastroduodenoscopy History of carpal tunnel surgery of left wrist Hx of nasal septoplasty History of hemorrhoidectomy Hx of colonoscopy Family History Family History Mother No problems noted. Social History Social History Housing: Apartment Are you a primary home care music therapist to a significant other at home: No Do you presently have visiting nurse or other home services: Yes Alcohol intake: former Year quit: 2003 Comment: was seen at [facility]-called for note Patient Tobacco Use Status: Current everyday Tobacco user Tobacco use type: Cigarette Cigarette Packs Per Day: 0.5 Cigarettes Per Day: 10 Years Smoked: 45 e-Cigarette/Vaping Use: Former Use Second Hand Smoke Exposure: Yes Advance Directives: No Advance Directives Information Provided: No Patient : No service: No Current occupational status: disabled Cognitive needs: Yes (back brace) Hearing needs: No Vision needs: Yes Physical Exam Vital Signs: Vital Signs: Last Vital Signs Temp 98.0 F 04/06/25 21:41 Pulse 116 H 04/06/25 21:41 Resp 20 04/06/25 21:41 BP 117/56 L 04/06/25 21:41 Pulse Ox 93 04/06/25 21:41 O2 Del Method Room Air 04/06/25 18:49 O2 Flow Rate 2 04/06/25 16:39 Oxygen Flow Rate 2 04/06/25 16:10 BMI result Body Mass Index 36.7 Appearance: Alert.?Oriented to person, place and time. No acute distress.?Normal affect. Head: Normocephalic. Atraumatic Eyes: Pupils equal, round and reactive to light. EOMI. Conjunctiva and sclera normal? No raccoon eyes noted ENT: Pharynx normal. TM normal bilaterally. No hopson sign. Neck: Normal inspection.? Neck supple.??No palpable tenderness, step-off, deformities. Back: Diffuse midline thoracic spine tenderness from T5-T10 without palpable step-offs or deformities. Diffuse tenderness to the left thoracic paraspinal muscles and beneath the scapula. Benign examination of the lumbar spine CVS: Heart sounds normal. Normal heart rate and rhythm.? Pulses normal.?? Respiratory: No respiratory distress.? Lung sounds clear to auscultation bilaterally?? Abdomen: Soft and non-tender. Normoactive bowel sounds. No CVA tenderness. ? Skin: Skin warm and dry.? Normal skin color.? Extremities: No lower extremity edema.? Full range of motion to left knee ankle and right lower extremity as well as bilateral upper extremities. There is no obvious deformity to the left hip nor throughout the left thigh. No external /internal rotation of the left lower extremity nor shortening. However she has diffuse tenderness upon palpation in the region of the proximal thigh/hip. 2+ DP/PT pulse bilaterally. Neuro: Moves all extremities spontaneously. Sensation intact bilaterally. CN II-XII intact. No focal neuro deficits. Course Reevaluation(s) Reevaluation #1: Patient had improvement in pain after receiving oxycodone. She has been resting comfortably in the emergency department. CT of the head without acute intracranial pathology, CT of the thoracic spine without acute pathology. XR of the left hip/pelvis as well as left femur without acute osseous abnormality. She was offered physical therapy evaluation/case management for potential short-term rehab placement she however declines. She would like to follow up outpatient with the primary care doctor and consider outpatient physical therapy. We discussed strict return precautions. Conservative treatment in the interim. All questions answered. Stable for discharge Medications Administered Discontinued Medications Generic Name Dose Route Start Last Admin Trade Name Freq PRN Reason Stop Dose Admin Oxycodone HCl 5 mg 04/06/25 18:38 04/06/25 18:56 Oxycodone Hcl Immed Release 5 Mg Tablet PO 04/06/25 18:39 5 mg ONCE ONE Administration Medical Decision Making Medical Decision Making MDM Narrative: Patient is a 64-year-old female with history of obesity, DVT on Eliquis, polysubstance abuse, myofascial pain syndrome involving the thoracic spine, prior compressions of the thoracic spine, osteoarthritis, chronic knee pain, chronic neck pain with stenosis in the cervical region, peripheral polyneuropathy, for Parkinson's disease, underlying gait stability, seizure disorder, anxiety, depression who presents emergency department for evaluation after to reported falls yesterday as per HPI. She denies any head strike or loss of consciousness, however she did fall from a standing position down into the tub, I discussed with her that given the impact of the fall she could still have potential for ICH, SDH especially given she is anticoagulated on Eliquis and we reviewed obtaining CT of the head to exclude this. She has no focal neurological deficits at the time of my evaluation. On examination she does have diffuse tenderness along the lower thoracic spine without palpable step-offs or deformities at her PE portion of this note as well as the left paraspinal muscles. Sounds are clear to the apices bilaterally. No palpable deformities along the lateral ribs. Her abdominal examination is benign. She endorses pain to the left hip and thigh without obvious deformity though there is tenderness upon palpation. Decreased AROM at the hip otherwise full range of motion to the remainder of the lower extremity as per PE portion of this note. Extremities are neurovascularly intact distally. She reports her pain to be severe, she tried Tylenol at home and reportedly received NSAID from EMS without improvement. States pain is 10/10. She was offered a single dose of oxycodone for analgesia at this time, she is request to receive morphine IV alternative, advised that we would trial p.o. analgesia at this time pending further workup. Differential Diagnosis Differential Diagnoses: The differential diagnosis associated with the presentation includes (See narrative above) Admission/Observation Consideration of admission/observation: Escalation of care including admission/observation considered Lab Data MDM Lab Attestation statement: I reviewed the patient's lab results. CBC is without leukocytosis, has a mild normocytic anemia that does not meet transfusion criteria, no thrombocytopenia. Mild hyponatremia 129 as seen on prior no otherwise concerning electrolyte derangement. No DOUG. LFTs unremarkable. 04/06/25 20:03 04/06/25 20:03 Labs: Lab Results 04/06/25 Range/Units 20:03 WBC 6.7 (4.8-10.8) X10*3/uL RBC 3.57 L (4.20-5.50) X10*6/uL Hgb 11.4 L (12.0-16.0) g/dl Hct 33.9 L (37.0-47.0) % MCV 95.0 (80.0-98.0) fL MCH 31.9 (27.0-33.0) pg MCHC 33.6 (31.0-35.0) g/dl RDW 14.1 (11.0-16.0) % Plt Count 249 (160-400) X10*3/uL MPV 9.3 L (9.4-12.3) fL Immature Gran % (Auto) 0.3 (0.0-0.4) % Neut % (Auto) 56.1 (45-73) % Lymph % (Auto) 25.9 (20-40) % [place] % (Auto) 11.6 H (2-11) % Eos % (Auto) 5.2 H (0-4) % Baso % (Auto) 0.9 (0-2) % Lymph # (Auto) 1.7 (1.2-4.9) X10*3/uL [place] # (Auto) 0.8 (0.1-1.2) X10*3/uL Eos # (Auto) 0.4 (0.0-0.4) X10*3/uL Baso # (Auto) 0.1 (0.0-0.2) X10*3/uL Abs Immat Gran (auto) 0.02 (0.00-0.03) X10*3/uL Absolute Neuts (auto) 3.8 (2.0-8.3) x10*3/uL Absolute Nucleated RBC 0.000 (0.0-0.012) X10*3/uL Nucleated RBC % (auto) 0.0 (0.0-0.2) /100WBC Sodium 129 L (135-145) mmol/L Potassium 5.1 (3.3-5.1) mmol/L Chloride 98 (96-108) mmol/L Carbon Dioxide 24 (22-29) mmol/L Anion Gap 12 (12-20) BUN 15 (9-16) mg/dL Creatinine 1.08 (0.5-1.4) mg/dL Estim Creat Clear Calc 55.2 Estimated GFR 51 Random Glucose 116 H (60-115) mg/dL Calcium 8.8 (8.4-10.2) mg/dL Total Bilirubin 0.3 (0.0-1.0) mg/dL AST 25 (5-31) U/L ALT 15 (0-31) U/L Alkaline Phosphatase 78 (39-117) U/L Total Protein 6.9 (6.5-8.0) g/dL Albumin 4.0 (3.5-5.0) g/dL Independent Interpretation I performed an independent interpretation of an: Plain X-Ray (See course narative) Radiology Impression Discussion of test interpretation with radiology: I have reviewed the radiologist's reading. Radiologist Impression: CT head without contrast Comparison: CT/SR - CT HEAD/BRAIN WO IV CON - 03/25/25 15:53 EDT Findings: No intra-axial mass, midline shift, hydrocephalus, or acute hemorrhage. No significant atrophy-like change or white matter disease. Moderate mucosal thickening and opacification of the bilateral anterior ethmoid air cells, maxillary and sphenoid sinuses. Small air-fluid level within the left maxillary sinus. The orbits are within normal limits. No skull fracture. IMPRESSION: 1. No acute intracranial findings specifically no acute intracranial hemorrhage. 2. Paranasal sinus disease concerning for acute sinusitis. CT thoracic spine without contrast Comparison: CR - XR THORACIC SPINE 2V - 03/25/25 16:38 EDT Findings: Mild multilevel spondylosis with disc space narrowing and osteophytosis causing mildly exaggerated thoracic kyphosis. No acute fractures or dislocations. Chronic healing fractures of the left 5th posterior rib. Normal visualized lungs and mediastinum. Normal upper abdominal contents. Bibasilar atelectatic/dependent changes. IMPRESSION: No evidence of acute fracture or traumatic listhesis of the thoracic spine. Chronic healing fracture of the left 5th posterior rib. Mild multilevel spondylosis causing exaggerated thoracic kyphosis. 3 view, pelvis and left hip Comparison: None Findings: No acute fracture or dislocation. No significant arthritic change. The soft tissues are unremarkable. IMPRESSION: No acute findings. 2 view left femur Comparison: None Findings: No fractures or dislocations. No knee effusion. No significant arthritic change. No radiopaque foreign body. IMPRESSION: 1. Normal left femur Independent Historian Clinical information obtained from an independent historian. History obtained from or confirmed by: EMS External Record Review External record reviewed: Outpatient record Chronic Conditions Patient?s care impacted by: Other (See narrative above) Discharge Plan Discharge Clinical Impression: Back pain Patient Disposition: Home, Self-Care Instructions: Back Pain (ED) Additional Instructions: As discussed, you were evaluated today for your pain after the fall. X-ray of your left hip and femur did not show any abnormality. CT scan of your thoracic spine did not show any acute trauma. Your blood work was very reassuring. Please follow-up with your primary care doctor with persistent symptoms, as mentioned, you may discuss with them physical therapy outpatient as using necessary. You were offered evaluation from physical therapy while in the emergency department come tomorrow however have declined and are electing to go home. Be sure to rest, apply ice to areas of pain for 10-15 minutes 3-4 times daily, You can take Tylenol 500 mg, 2 tablets (1,000mg) every 4-6 hours as needed for pain, but not to exceed 3 doses daily (3,000mg).? You may return to emergency department any new or worsening symptoms or concerns Prescriptions: No Action (DME) disposable gloves Misc See Rx Instructions .Route Qty: 1000 3RF Rx Instructions: As directed (DME) adult pullups medium See Rx Instructions .Route .MEDSUPPLY Qty: 120 11RF Rx Instructions: As directed (DME) diaper,brief,adult,disposable Misc See Rx Instructions .Route Qty: 120 0RF Rx Instructions: As directed miscellaneous medical supply Misc 1 ea miscellaneous DAILY 99 Days Qty: 1 0RF (DME) cane Device See Rx Instructions .Route Qty: 1 0RF Rx Instructions: As directed (DME) soft neck brace See Rx Instructions .Route .MEDSUPPLY Qty: 1 0RF Rx Instructions: As directed (DME) back brace Misc See Rx Instructions .Route Qty: 1 0RF Rx Instructions: As directed (DME) incontinence pad, liner, disp Pad See Rx Instructions .Route Qty: 200 1RF Rx Instructions: As directed Trelegy Ellipta 200-62.5-25 mcg blister with device 1 inh inhalation DAILY 30 Days Qty: 60 12RF (DME) disposable face masks See Rx Instructions .Route .MEDSUPPLY Qty: 1 0RF Rx Instructions: As directed fluticasone furoate-vilanterol [Breo Ellipta] 200-25 mcg/dose blister with device 1 inh inhalation DAILY 30 Days Qty: 60 11RF diphenhydramine HCl [Banophen] 25 mg capsule 25 mg PO Q8H 90 Days Qty: 270 3RF (DME) round raised toilet seat See Rx Instructions .Route .MEDSUPPLY Qty: 1 0RF Rx Instructions: As directed montelukast 10 mg tablet 10 mg PO DAILY 90 Days Qty: 90 1RF Wescaps 1 mg capsule 1 cap PO DAILY 90 Days Qty: 90 1RF acetaminophen [Pain Relief (acetaminophen)] 500 mg tablet 500 mg PO BID 90 Days Qty: 180 2RF lisinopril 2.5 mg tablet 2.5 mg PO DAILY 90 Days Qty: 90 1RF folic acid 1 mg tablet 1 mg PO DAILY 90 Days Qty: 90 0RF furosemide 20 mg tablet 20 mg PO DAILY 90 Days Qty: 90 0RF gabapentin 400 mg capsule 400 mg PO DAILY 30 Days Qty: 30 3RF cholecalciferol (vitamin D3) 50 mcg (2,000 unit) capsule 50 mcg PO DAILY 90 Days Qty: 90 1RF magnesium oxide 400 mg magnesium capsule 400 mg PO BEDTIME 90 Days Qty: 90 2RF omeprazole 20 mg capsule,delayed release(DR/EC) 20 mg PO DAILY 90 Days Qty: 90 0RF lidocaine 5 % adhesive patch,medicated 1 patch topical DAILY 30 Days Qty: 30 3RF Rx Instructions: leave on most painful area for up to 12 hrs alendronate [Fosamax] 70 mg tablet 70 mg PO QWEEK 84 Days Qty: 12 1RF baclofen 10 mg tablet 20 mg PO BEDTIME 90 Days Qty: 180 1RF (DME) EXERCISE BIKE See Rx Instructions .Route .MEDSUPPLY Qty: 1 0RF Rx Instructions: As directed loperamide 2 mg capsule 2 mg PO Q8H PRN (Reason: loose stool) 7 Days Qty: 21 1RF (DME) bed pads See Rx Instructions .Route .MEDSUPPLY Qty: 120 11RF Rx Instructions: As directed Eliquis 5 mg tablet 5 mg PO BID 90 Days Qty: 180 0RF (DME) Soft TLSO with shoulder straps See Rx Instructions .Route .MEDSUPPLY Qty: 1 0RF Rx Instructions: As directed dextromethorphan-guaifenesin [Robitussin Cough-Chest Feliciano DM] 5-100 mg/5 mL liquid 10 ml PO Q4-8H PRN (Reason: cough) Qty: 500 0RF epinephrine [EpiPen 2-Kamaljit] 0.3 mg/0.3 mL auto-injector 0.3 mg IM ONCE PRN (Reason: anaphylaxis) 30 Days Qty: 2 0RF (DME) Ultra-Light Rollator Misc See Rx Instructions .Route Qty: 1 0RF Rx Instructions: As directed acetaminophen-codeine 300-30 mg tablet 1 tab PO Q8H PRN (Reason: pain) 4 Days Qty: 12 0RF (DME) Knee Support Brace Misc See Rx Instructions .Route Qty: 1 0RF Rx Instructions: Need for clinical material handler left knee brace with medial support triamcinolone acetonide 0.1 % cream 1 appl topical BID 30 Days Qty: 80 0RF clonazepam 1 mg tablet 0.5 mg PO BID (DME) compr.stocking,knee,long,large Misc See Rx Instructions .Route Qty: 2 0RF Rx Instructions: As directed zolpidem 10 mg tablet 5 mg PO BEDTIME albuterol sulfate [Ventolin HFA] 90 mcg/actuation HFA aerosol inhaler 2 puff inhalation QID PRN (Reason: shortness of breath or wheezing) 30 Days Qty: 18 11RF desvenlafaxine succinate 50 mg tablet extended release 24 hr 50 mg PO DAILY primidone 50 mg tablet 100 mg PO TID prednisone 10 mg tablet 10 mg PO DIRECTED 6 Days Qty: 12 0RF Rx Instructions: Take 3 tablets x2 days, 2 tablets x2 days, 1 tablet x2 days oxybutynin chloride 15 mg tablet extended release 24hr 15 mg PO DAILY 90 Days Qty: 90 1RF Zepbound 2.5 mg/0.5 mL pen injector 2.5 mg subcut QWEEK 28 Days Qty: 2 0RF Rx Instructions: for 4 weeks (DME) humidifiers [Cool Mist Humidifier] Misc See Rx Instructions .Route Qty: 1 0RF Rx Instructions: As directed topiramate 200 mg tablet 200 mg PO BID 90 Days Qty: 180 1RF Referrals: Sudhir Martin PA-C [Primary Care Provider] - Print Language: Guamanian
[2025-04-06 18:49] VITALS: O2SAT 99
[2025-04-06] MEDS: oxyCODONE HCl Immed Release 5 MG TABLET PO (18:56)
[2025-04-06 20:09] LABS: MANUAL DIFF FLAG NO
[2025-04-06 20:11] LABS: Basophils Absolute Auto 0.1 X10*3/uL (0.0-0.2); Basophils Percent Auto 0.9 % (0-2); Eosinophils Absolute Auto 0.4 X10*3/uL (0.0-0.4); Eosinophils Percent Auto 5.2 % (0-4); Hematocrit 33.9 % (37.0-47.0); Hemoglobin 11.4 g/dl (12.0-16.0); Imm Gran Abs Auto 0.02 X10*3/uL (0.00-0.03); Imm Gran Pct Auto 0.3 % (0.0-0.4); Lymphocytes Absolute Auto 1.7 X10*3/uL (1.2-4.9); Lymphocytes Percent Auto 25.9 % (20-40); Mean Corpuscular HGB Conc 33.6 g/dl (31.0-35.0); Mean Corpuscular Hemoglobin 31.9 pg (27.0-33.0); Mean Platelet Volume 9.3 fL (9.4-12.3); Monocytes Absolute Auto 0.8 X10*3/uL (0.1-1.2); Monocytes Percent Auto 11.6 % (2-11); Neutrophils Absolute Auto 3.8 x10*3/uL (2.0-8.3); Neutrophils Percent Auto 56.1 % (45-73); Platelet Count 249 X10*3/uL (160-400); Red Blood Count 3.57 X10*6/uL (4.20-5.50); Red Cell Distribution Width 14.1 % (11.0-16.0); White Blood Count 6.7 X10*3/uL (4.8-10.8)
[2025-04-06 20:26] LABS: Alanine Aminotransferase 15 U/L (0-31); Alkaline Phosphatase 78 U/L (39-117); Anion Gap 12 (12-20); Aspartate Amino Transferase 25 U/L (5-31); Bilirubin Total 0.3 mg/dL (0.0-1.0); Blood Urea Nitrogen 15 mg/dL (9-16); Calcium 8.8 mg/dL (8.4-10.2); Carbon Dioxide 24 mmol/L (22-29); Chloride 98 mmol/L (96-108); Creatinine Clr Calc Pharmacy 55.2; Estimated Glomerular Filt Rate 51; Glucose Random 116 mg/dL (60-115); Potassium 5.1 mmol/L (3.3-5.1); Sodium 129 mmol/L (135-145); Total Protein 6.9 g/dL (6.5-8.0)
[2025-04-06 21:41] VITALS: BP 117/56; PULSE 116; RESP 20; TEMP 36.7; O2SAT 93
[2025-04-06 22:28] VITALS: BP 125/58; PULSE 66; RESP 16; TEMP 36.7; O2SAT 96
== END 2025-04-06 22:57 | disposition home or self-care (01) ==
PROVIDERS: Nurse Practitioner Family; Emergency Provider Emergency Medicine Emergency Medical Services; PCP Physician Assistant
DX: M54.50 Low back pain, unspecified (principal); R51.9 Headache, unspecified; M25.552 Pain in left hip; M54.6 Pain in thoracic spine; F17.210 Nicotine dependence, cigarettes, uncomplicated; Z79.899 Other long term (current) drug therapy
CPT/HCPCS: 36415; 70450; 72128; 73502; 73552; 80053; 85025; 99284

== ENCOUNTER → 2025-04-06 18:38 | Outpatient (BNV) | payer OTHER, SELFPAY | PROVIDERS: Emergency Provider Emergency Medicine Emergency Medical Services; PCP Physician Assistant; Visit Provider Student in an Organized Health Care Education/Training Program | DX: M40.204 Unspecified kyphosis, thoracic region (principal); G44.309 Post-traumatic headache, unspecified, not intractable; M25.552 Pain in left hip; M79.652 Pain in left thigh | CPT/HCPCS: 70450; 72128; 73502; 73552 ==

== ENCOUNTER 2025-04-08 09:39 | Outpatient (AMB) | payer OTHER, SELFPAY ==
[2025-04-08 09:51] VITALS: BP 120/76; PULSE 76; TEMP 36.2; O2SAT 96; BMI 36.2
--- NOTE | 2025-04-08 09:51 | A.OFFPC_ITS ---
Vital Signs 04/08/25 09:51 Height 5 ft 2 in Weight 198 lb BMI 36.2 BP 120/76 Blood Pressure Location Lt brachial Position Sitting Pulse 76 Pulse Source Pulse Oximeter Temp 97.1 F Temp Source Temporal Artery Scan Pulse Oximetry (%) 96 Oxygen Delivery Method Room Air Intake Visit Reasons: f/u COPD/ parkinsons Intake Note: Patient is here to follow-up after a visit the emergency department at [facility] on 04/06/25 due to a fall causing back pain. Pt is requesting to be evaluated for bl ood clots. Foreign Exchange Clerk Required: No Accompanied by: Self / Same As Patient Allergies cat dander [CATS] Allergy (Mild, Verified 04/08/25 09:55) HAYFEVER Chocolate Allergy (Mild, Verified 04/08/25 09:55) HEADACHES dog dander [DOGS] Allergy (Mild, Verified 04/08/25 09:55) HAYFEVER Environmental Allergy (Mild, Uncoded 04/08/25 09:55) HAYFEVER yellow jackets Allergy (Uncoded 04/08/25 09:55) Anaphylaxis Medication List - Last Reconciled 04/08/25 by uSdhir Martin PA-C acetaminophen (Pain Relief (acetaminophen)) 500 mg PO BID 90 days acetaminophen-codeine 300-30 mg 1 tab PO Q8H PRN 4 days [adult pullups As directed] albuterol sulfate 90 mcg/actuation (Ventolin HFA) 2 puffs inhalation QID PRN 30 days alendronate (Fosamax) 70 mg PO QWEEK 12 weeks apixaban (Eliquis) 5 mg PO BID 90 days B complex with C 20-folic acid 1 mg (Wescaps) 1 cap PO DAILY 90 days back brace As directed baclofen 20 mg (2 x 10 mg) PO BEDTIME 90 days [bed pads As directed] cane As directed cholecalciferol (vitamin D3) 50 mcg PO DAILY 90 days clonazepam 0.5 mg PO BID compr.stocking,knee,long,large As directed desvenlafaxine succinate ER 50 mg PO DAILY dextromethorphan-guaifenesin 5-100 mg/5 mL (Robitussin Cough-Chest Congestion DM) 10 mL PO Q4-8H PRN diaper,brief,adult,disposable As directed diphenhydramine HCl (Banophen) 25 mg PO Q8H 90 days [disposable face masks As directed] disposable gloves As directed epinephrine (EpiPen 2-Kamaljit) 0.3 mg (0.3 mL) IM ONCE PRN 30 days [EXERCISE BIKE As directed] fluticasone furoate-vilanterol 200-25 mcg/dose (Breo Ellipta) 1 inh inhalation DAILY 30 days ujdghuhacpv-hhfplebfv-sbpfkljj 200-62.5-25 mcg (Trelegy Ellipta) 1 inh inhalation DAILY 30 days folic acid 1 mg PO DAILY 90 days furosemide 20 mg PO DAILY 90 days gabapentin 400 mg PO DAILY 30 days humidifiers (Cool Mist Humidifier) As directed incontinence pad, liner, disp As directed leg brace (Knee Support Brace) Need for cement rubber left knee brace with medial support lidocaine 5% 1 patch topical DAILY 30 days lisinopril 2.5 mg PO DAILY 90 days loperamide 2 mg PO Q8H PRN 7 days magnesium oxide 400 mg PO BEDTIME 90 days miscellaneous medical supply 1 ea miscellaneous DAILY 99 days montelukast 10 mg PO DAILY 90 days omeprazole 20 mg PO DAILY 90 days oxybutynin chloride ER 15 mg PO DAILY 90 days primidone 100 mg PO TID [round raised toilet seat As directed] [soft neck brace As directed] [Soft TLSO with shoulder straps As directed] tirzepatide (weight loss) (Zepbound) 2.5 mg (0.5 mL) subcut QWEEK 4 weeks topiramate 200 mg PO BID 90 days triamcinolone acetonide 0.1% 1 appl topical BID 30 days walker (Ultra-Light Rollator misc) As directed zolpidem 5 mg PO BEDTIME Tobacco use date assessed: 01/05/25 Fall risk assessment: No Falls in past year Last assessed Fall Risk: 04/08/25 Dental Screening Dental Screen Date: 01/05/25 HPI f/u COPD/ parkinsons HPI Details Patient is a 64-year-old female here today for a follow-up visit. ? Patient has a past medical history significant for polysubstance abuse, spinal stenosis, anxiety, depression, pernicous anemia, DVT ( left leg), parkinsons.? Concern--> Recently seen at the [facility]. She reports a fall two days ago in the bathroom, where she slipped and grasped a shower curtain, leading to a [id number]-[id number] fall while seated in the bathtub. This is concerning due to her anticoagulant use. She has experienced leg numbness likely related to lumbar disc pathology, with degenerative changes evident on prior imaging. She also reports significant knee pain attributed to arthritis, which is not fully managed with current topical treatment. The patient additionally presents with symptoms of cellulitis, for which she uses topical treatment but has yet to receive oral antibiotics. CHRONIC MEDICAL CONDITIONS--> Tobacco dependency: Patient continues to smoke. Has tried Chantix though not effective She does understand she needs to quit smoking .. Class 2 Obese: Has lost a few lb since last office visit. She reports she has been trying a low-calorie diet and does do as much physical activity as she can given her tremor disorder and Parkinson's disorder. Of note have noticed lower extremity swelling thus will use furosemide for the next 2 weeks to help some of the fluid retention. .. .. PTSD: Is followed by a psychiatrist and a mental health therapist. Was using Topamax for her PTSD disorder though does admit to taking a bit more Topamax to help her with weight loss though had caused some disorientation and an acute kidney injury leading to hospital admission recently. .. Lumbar Spinal stenosis: Is seeing pain specialist here at [facility] and has started on SPRINT Spinal stimulator which has offered her excellent pain relief in her lumbar spine..? She is now wearing a lumbar support brace. Has followed up with a neurosurgeon for her neck pain though was not a surgical candidate.? Currently a recovering addict and does not use any pain medication besides Tylenol at this time. .. Parkinsons: Sees a neurologist, has been started on primidone. Apparently carbidopa levodopa has been discontinued. ? Also followed for a seizure disorder and denies any recent seizure activity. .? She reports her balance has gotten wo rse, does report recent fall.? She is interested in seeing a physical therapist for balance training. .. Heart? murmur/ Atypical chest pain : IS followed by Underground [employer] ( Dr. Alvares ), Cardiac stress test normal, ECHO showing low/ normal EF. .. h/o polysubtance abuse ( alcohol, crack cocain) : Has been sober since 2013.? She is in a fellowship (AA/ NA) . Major depressive disorder/ generalized anxiety disorder:? She is followed psychiatrist now who manages her mental health medications. She feels her depression is fairly well managed at this time.?? She reports he continues to have trouble with sleep even with use of trazodone, Benadryl and gabapentin at night.?. ? [facility] Medical History Vitamin B12 deficiency Hx of deep venous thrombosis Microcytic anemia COPD with emphysema Prerenal azotemia Toxic metabolic encephalopathy Transaminitis Allergies Chronic allergic rhinitis Asthma-COPD overlap syndrome COPD exacerbation COVID-19 History of abnormal cervical Pap smear Spinal stenosis, cervical region Peripheral polyneuropathy Spondylosis of cervical spine Spondylosis of lumbar spine Cocaine abuse Alcohol abuse Hepatitis HIV (human immunodeficiency virus infection) Heart murmur History of cocaine abuse History of heroin abuse Hydradenitis Former cigarette smoker Recovering alcoholic GERD (gastroesophageal reflux disease) Lumbago with sciatica, left side Arthritis Back pain On anticoagulant therapy DVT (deep venous thrombosis) History of celiac disease Anxiety Panic attacks Depression PTSD (post-traumatic stress disorder) Parkinson disease History of frequent headaches Seizure Asthma Surgical History H/O excision of ganglion cyst Hx of esophagogastroduodenoscopy History of carpal tunnel surgery of left wrist Hx of nasal septoplasty History of hemorrhoidectomy Hx of colonoscopy Family History Mother No problems noted. Social History Housing: Apartment Are you a primary progressive care manager to a significant other at home: No Do you presently have visiting nurse or other home services: Yes Alcohol intake: former Year quit: 2003 Comment: was seen at [facility]-called for note Patient Tobacco Use Status: Current everyday Tobacco user Tobacco use type: Cigarette Cigarette Packs Per Day: 0.5 Cigarettes Per Day: 10 Years Smoked: 45 e-Cigarette/Vaping Use: Former Use Second Hand Smoke Exposure: Yes service: No Current occupational status: disabled Cognitive needs: Yes (back brace) Hearing needs: No Vision needs: Yes Questionnaire PHQ-9 Over the last 2 weeks, how often have you been bothered by any of the following problems? 1. Little interest or pleasure in doing things: nearly every day 2. Feeling down, depressed, or hopeless: nearly every day 3. Trouble falling or staying asleep, or sleeping too much: not at all 4. Feeling tired or having little energy: not at all 5. Poor appetite or overeating: nearly every day 6. Feeling bad about yourself - or that you are a failure or have let yourself or your family down: not at all 7. Trouble concentrating on things, such as reading the newspaper or watching television: not at all 8. Moving or speaking so slowly that other people could have noticed. Or the opp osite - being so fidgety or restless that you have been moving around a lot more than usual: not at all 9. Thoughts that you would be better off or of hurting yourself in some way: not at all Total score: 9 Depression Screening Interpretation: Positive Depression Screening Follow-up: Existing condition and In treatment Depression Screening Done: Yes 09398 - PHQ-9 Billing: Yes Source: Developed by Drs. Boris Garcia, Qian Bullard, Hector Herzog and colleagues, with an educational miguel a from [employer]. Thrive Questionnaire Date Thrive assessed: 01/05/25 I am a: Patient What is your living situation today?: I have a steady place to live Within the past 12 months, did the food you bought not last and you didn't have the money to get more?: Never true Within the past 12 months, did you worry whether your food would run out before you got money to buy more?: Never true Do you have trouble paying for medicines?: No Do you have trouble getting transportation to medical appointments?: No Do you have trouble paying your heating and electricity bill?: No Do you have trouble taking care of your child, family member or friend?: No Do you have trouble with day-to-day activities such as bathing, preparing meals, shopping, managing finances, etc.?: Yes Are you currently unemployed and looking for a job?: No Are you interested in more education?: Yes Please select the resources that you would like help with: None Currently or been in a relationship where the following occur: No concerns reported THRIVE Score: 0 AUDIT C Alcohol Use Questionnaire (AUDIT-C) 1. How often do you have a drink containing alcohol?: Never Total Score: 0 LUISA-7 AMB Questionnaire LUISA-7 Date LUISA - 7 assessed: 01/05/25 Feeling nervous, anxious, or on edge: 0 = Not at all Not being able to stop or control worryin = Not at all Worrying too much about different things: 0 = Not at all Trouble relaxin = Not at all Being so restless that it is hard to sit still: 2 = More than half the days Becoming easily annoyed or irritable: 0 = Not at all Feeling afraid as if something awful might happen: 0 = Not at all Total LUISA-7 score (0-4 normal; 5-9 mild; 10-14 moderate; 15-21 severe): 2 Source: Developed by Drs. Boris Garcia, Qian Bullard, Hector Herzog and colleagues, with an educational miguel a from [employer]. LUISA-7 Assessment Billing LUISA-7 Assessment Tool: LUISA-7 Assessment 97521 Review of Systems Const Denies headache(s) Eyes Denies loss of vision ENT Denies vertigo, Denies dizziness, Denies headache(s) and Denies sore throat Card Denies chest pain, Denies leg edema and Denies lightheadedness Resp Denies cough, Denies hemoptysis and Denies wheezing GI Denies abdominal pain, Denies melena, Denies constipation, Denies diarrhea and Denies vomiting Denies urinary frequency, Denies dysuria and Denies urinary urgency Musc Denies arthralgias, Denies joint swelling, Denies numbness and Denies tingling Neuro Denies Abnormal speech present, Denies behavioral changes, Denies vertigo, Denies dizziness, Denies headache(s), Denies loss of vision, Denies memory loss, Denies numbness and Denies tingling Psych Denies anxiety, Denies behavioral changes, Denies depression, Denies memory loss and Denies panic attacks Carlos/Lymph Denies easy bleeding and Denies easy bruising Aller/Immun Denies wheezing Physical exam (Primary Care) Vital Signs: Last Vital Signs Temp 97.1 F 04/08/25 09:51 Pulse 76 04/08/25 09:51 BP 120/76 04/08/25 09:51 Pulse Ox 96 04/08/25 09:51 Oxygen Delivery Method Room Air 04/08/25 09:51 BMI result Body Mass Index 36.2 Tobacco/Smoking Status: Tobacco use Status Tobacco use date assessed 01/05/25 04/08/25 09:53 Patient Tobacco Use Status Current everyday Tobacco 04/08/25 09:53 Tobacco use type Cigarette 04/08/25 09:53 e-Cigarette/Vaping Use Former Use 04/08/25 09:53 PHQ-9: PHQ-9 Score PHQ-9: Total score 9 04/08/25 10:25 Depression Screening Interpretation: Positive Depression Screening Follow-up: Existing condition and In treatment Thrive Assessment: Date of Thrive Assessment Date Thrive assessed 01/05/25 04/08/25 09:53 Currently or been in a relationship where the following occur: No concerns reported Const General: healthy appearing, no acute distress, alert and awake Nutritional Appearance: well nourished Orientation/consciousness: oriented to person, oriented to place and oriented to time HENMT Ears: TM's normal bilaterally General nose exam: Normal nasal mucous membranes and turbinates present Eyes Conjunctivae: conjunctivae normal Sclerae: sclerae normal Pupils: Equal, round and reactive pupils present Neck Neck: Yes no lymphadenopathy and Yes no JVD Thyroid: Thyroid normal Carotids: no bruits Resp Effort & Inspection: normal respiratory effort and not tachypneic Auscultation: no crackles, no rales, no rhonchi and no wheezes Cardio Rate: regular rate Rhythm: regular rhythm Heart sounds: no murmurs and normal S1 and S2 GI Palpation (GI): Soft to palpation, nontender, no hepatomegaly and no splenomegaly Auscultation: normal bowel sounds Skin General skin exam: no rashes or lesions noted and dry skin Neuro General: oriented to person, oriented to place and oriented to time Cranial nerves: Yes Equal, round and reactive pupils present Speech: No Abnormal speech present Gait exam (Neuro): Normal gait present Motor exam (neuro): no tremor noted Extrem Right upper extremity: full ROM Left upper extremity: full ROM Right lower extremity: full ROM; no edema Left lower extremity: full ROM; no edema Psych Mental Status: mental status grossly normal Speech and movement: Normal speech and movement present Affect: normal affect Attitude: cooperative Thought process: Normal thought process present Coding Level of Care Code Est Pt Level 4 (10864) Diagnoses Lumbar radiculopathy M54.16 Left leg cellulitis L03.116 Contracture of index finger M20.099 Simple chronic bronchitis J41.0 COPD type: chronic bronchitis Chronic bronchitis type: simple Parkinson's disease with dyskinesia without fluctuating manifestations G20.B1 Dyskinesia presence: with dyskinesia Fluctuating manifestations: without fluctuating manifestations Primary hypertension I10 Hypertension type: primary hypertension Tobacco dependence F17.200 Additional Codes LUISA-7 Assessment Billing - LUISA-7 Assessment Tool: LUISA-7 Assessment 58728 ([id number]) PHQ-9 - 76292 - PHQ-9 Billing: Yes ([id number]) Assessment & Plan Assessment & Plan (1) Lumbar radiculopathy: Code(s): M54.16 - Radiculopathy, lumbar region Category: Medical Plan: Patient continues with lower lumbar spine pain, has been using a thoracic lumbar support brace which has been helping her pain. She reports lower lift leg numbness which may be contributing to her recent falls. She is not interested in pain reduction modalities at this point. Will try for MRI to evaluate for disc impingement in her lumbar spine (2) Left leg cellulitis: Code(s): L03.116 - Cellulitis of left lower limb Category: Medical Plan: Patient does have left lower extremity redness over skin. Will supply patient with oral antibiotic for possible cellulitis (3) Contracture of index finger: Code(s): M20.099 - Other deformity of finger(s), unspecified finger(s) Category: Medical Plan: Patient does report having contractures in her left hand particularly in her middle and index finger. She does report having had a DME supplier to help splint her fingers. She did see orthopedic at [place] for special DME supply (4) COPD (chronic obstructive pulmonary disease): Code(s): J44.9 - Chronic obstructive pulmonary disease, unspecified Category: Medical Qualifiers: COPD type: chronic bronchitis Chronic bronchitis type: simple Qualified Code(s): J41.0 - Simple chronic bronchitis Plan: Patient unfortunately continues to smoke. She does report having a cough and shortness of breath at times. She reports being on oxygen in the hospital and felt she was breathing better. She will discuss perhaps supplemental O2 with her upcoming pulmonology evaluation. (5) Parkinson disease: Code(s): G20 - Parkinson's disease Category: Medical Qualifiers: Dyskinesia presence: with dyskinesia Fluctuating manifestations: without fluctuating manifestations Qualified Code(s): G20.B1 - Parkinson's disease with dyskinesia, without mention of fluctuations Plan: Continues to follow neurology and continues on primidone for her tremors. She reports her tremors have gotten a bit worse over the last several months. She has not had any recent falls though does use a walker for ambulation assistance. (6) HTN (hypertension): Code(s): I10 - Essential (primary) hypertension Category: Medical Qualifiers: Hypertension type: primary hypertension Qualified Code(s): I10 - Essential (primary) hypertension Plan: Patient's blood pressure acceptable today in office. Will continue her current antihypertensive medication. Otherwise goal blood pressures to be below 140/90 (7) Tobacco dependence: Code(s): F17.200 - Nicotine dependence, unspecified, uncomplicated Category: Medical Plan: As per HPI patient unfortunately continues to smoke cigarettes daily. She has tried nicotine replacement and Chantix in the past though has been ineffective. Orders: Orders MR lumbar spine wo con Today M54.16 - Radiculopathy, lumbar region PT Evaluation and Treatment Today M54.16 - Radiculopathy, lumbar region Referrals Orthopedics Referral M20.099 - Other deformity of finger(s), unspecified finger(s) Medications: New betamethasone dipropionate 0.05% 1 appl topical DAILY PRN 45 grams 0RF skin irritation 4 weeks L03.116 - Cellulitis of left lower limb amoxicillin-pot clavulanate 875-125 mg 1 tab PO BID 20 tabs 0RF 10 days L03.116 - Cellulitis of left lower limb diclofenac sodium 1% apply to single elbow, wrist or hand; for hand includes palm/fingers/back of hand 4 grams topical QID 100 grams 3RF 30 days M23.92 - Unspecified internal derangement of left knee Refilled acetaminophen (Pain Relief (acetaminophen)) 500 mg PO BID 180 tabs 2RF for fever 90 days M54.16 - Radiculopathy, lumbar region Discontinued tirzepatide (weight loss) (Zepbound) for 4 weeks Discontinued Reason: Doctor's Order 2.5 mg (0.5 mL) subcut QWEEK 4 weeks 2 mL 0RF E66.812 - Obesity, class 2, I10 - Essential (primary) hypertension triamcinolone acetonide 0.1% Discontinued Reason: Doctor's Order 1 appl topical BID 30 days 80 grams 0RF L30.9 - Dermatitis, unspecified
--- OUTSIDE RECORDS SUMMARY | 2025-04-08 09:56 | XMS_ITS | Patient Health Record ---
Author Organization [facility] Address [address] [place] [address] Care Team Providers Care Admission Nurse Coordinator Name Role Phone Chidi Reyes M.D. Primary Care Provider Un available Boris Quinones Unavailable [phone] Allergies Allergen (clinical drug ingredient) Drug/Non Drug Allergy documented on EMR Reaction Allergy Type Onset Date Status fluoxetine Prozac Unknown Drug Allergy Active DUST/Patient gets allergy shots every week (uncoded) Unknown Allergy Active EVERYTHING OUTSIDE (uncoded) Unknown Allergy Active CATS (uncoded) Unknown Allergy Activ e CHOCOLATE (uncoded) Unknown Allergy Active Reason For Referral No Information [...] Problem Status W/U Status Risk Notes Problem 531062583 Encounter for screening for malignant neoplasm of colon (Z12.11) Active confirmed Problem 992177926 History of adenomatous polyp of colon (Z86.010) Active confirmed Problem 22729397 Diarrhea (R19.7) Active confirmed Problem 25624887 Weight loss (R63.4) Active confirmed Problem 025884823 Celiac disease (K90.0) Active confirmed Problem 29685918 Constipation, unspecified constipation type (K59.00) Active confirmed Problem 992029442 Positive autoantibody screening for celiac disease (R76.8) Active confirmed Problem 98777142 Diarrhea, unspecified type (R19.7) Active confirmed Plan [...] Start Date Coverage End Date MEDICAID OF [employer] [facility] [address] [place] [id number] LIVIERGenaPARDEEP Self - patient is the insured Medical (General) History Medical History History ICD Code COPD/asthma Denies MA,DM,CVA,renal disease C.difficile in 2008--negative stool spec imens [...]
== END 2025-04-08 10:31 | disposition home or self-care (01) ==
LOC: HO.HMCH 09:39
PROVIDERS: PCP Physician Assistant; Visit Provider Physician Assistant
DX: M54.16 Radiculopathy, lumbar region (principal); J41.0 Simple chronic bronchitis; G20.B1 Parkinson's disease with dyskinesia, without mention of fluctuations; L03.116 Cellulitis of left lower limb; M20.099 Other deformity of finger(s), unspecified finger(s); I10 Essential (primary) hypertension; F17.200 Nicotine dependence, unspecified, uncomplicated

== ENCOUNTER → 2025-04-08 09:39 | Outpatient (BNVA) | payer OTHER, SELFPAY | PROVIDERS: PCP Physician Assistant; Visit Provider Physician Assistant | DX: G20.A1 Parkinson's disease without dyskinesia, without mention of fluctuations (principal); E66.812 Obesity, class 2; F43.10 Post-traumatic stress disorder, unspecified; M48.061 Spinal stenosis, lumbar region without neurogenic claudication; F41.1 Generalized anxiety disorder; M54.16 Radiculopathy, lumbar region; L03.116 Cellulitis of left lower limb; M20.099 Other deformity of finger(s), unspecified finger(s); J41.0 Simple chronic bronchitis; G20.B1 Parkinson's disease with dyskinesia, without mention of fluctuations; I10 Essential (primary) hypertension; F17.210 Nicotine dependence, cigarettes, uncomplicated; M23.92 Unspecified internal derangement of left knee; L30.9 Dermatitis, unspecified; Z68.36 Body mass index [BMI] 36.0-36.9, adult; Z91.81 History of falling | CPT/HCPCS: 96127; 99212 ==

== ENCOUNTER 2025-04-20 07:49 | Outpatient (REF) | payer OTHER, SELFPAY ==
--- NOTE | ~2025-04-20 | MR_ITS ---
CLINICAL HISTORY: M54.16 - Radiculopathy, lumbar region --- Additional Notes or Special Instructions: Having lower lumbar spine pain and left lower extremity numbness. MRI to evaluate for disc herniati on in the lower lumbar spine MR lumbar spine without gadolinium Comparison: CR - XR LUMBAR SPINE 2-3V - 03/25/25 18:[address]/SR - CT LUMBAR SPINE WO IV CON - 03/13/25 16:34 EDT Findings: Accentuated lumbar lordosis and otherwise normal alignment with no subluxation. Vertebral body height is maintained. No bone marrow edema. No bone lesion. Lumbar discs are desiccated but overall maintain normal height. Distal conus appears unremarkable terminating at T12-L1. No significant disc bulge, focal disc herniation or significant stenosis in the lumbar spine. Minimal to mild disc bulges at L1-2, L3-4 and L4-5. L5-S1 facet arthropathy. Paraspinous musculature intact. Bilateral small round T2 hyperintense lesions in bilateral kidneys likely renal cysts. Abdominal aorta normal in size. IMPRESSION: 1. No acute findings. 2. No disc herniation and no significant spinal canal or foraminal stenosis. 3. Minimal to mild disc bulges at L1-2, L3-4 and L4-5. 4. L5-S1 facet arthropathy. This document has been electronically signed by: Yumiko Mann MD on 04/20/2025 19:08:21
--- OUTSIDE RECORDS SUMMARY | 2025-04-20 07:52 | XMS_ITS | Patient Health Record ---
Author Organization [facility] Address [address] [place] [address] Care Team Providers Care Sub Arc Operator Name Role Phone Chidi Reyes M.D. Primary Care Provider Un available Boris Quinones Unavailable [phone] Allergies Allergen (clinical drug ingredient) Drug/Non Drug [...] Problem Status W/U Status Risk Notes Problem [id number] Encounter for screening for malignant neoplasm of colon (Z12.11) Active confirmed Problem 777409413 History of adenomatous polyp of colon (Z86.010) Active confirmed Problem 05240345 Diarrhea (R19.7) Active confirmed Problem 02755092 Weight loss (R63.4) Active confirmed Problem 944431680 Celiac disease (K90.0) Active confirmed Problem 20828337 Constipation, unspecified constipation type (K59.00) Active confirmed Problem 190058927 Positive autoantibody screening for celiac disease (R76.8) Active confirmed Problem 04015296 Diarrhea, unspecified type (R19.7) Active confirmed Plan [...] Start Date Coverage End Date [facility] [address] [place] [id number] LIVIERGenaPARDEEP Self - patient is the insured [...]
== END 2025-04-20 07:50 | disposition home or self-care (01) ==
LOC: HO.MRI 07:49
PROVIDERS: PCP Physician Assistant; Visit Provider Physician Assistant
DX: M54.16 Radiculopathy, lumbar region (principal)
CPT/HCPCS: 72148

== ENCOUNTER → 2025-04-20 07:49 | Outpatient (BNV) | payer OTHER, SELFPAY | PROVIDERS: PCP Physician Assistant; Visit Provider Specialist | DX: M54.16 Radiculopathy, lumbar region (principal) | CPT/HCPCS: 72148 ==

== ENCOUNTER 2025-05-14 11:00 | Outpatient (REF) | payer OTHER, SELFPAY ==
--- NOTE | ~2025-05-14 | US_ITS ---
EXAMINATION: US TRIPLEX LOWER EXTREMITY, RIGHT CLINICAL INFORMATION: Anterior right thigh pain COMPARISON: None available. TECHNIQUE: Color-flow triplex imaging with spectral analysis and compression Doppler were performed on the right lower extremity. FINDINGS: Respiratory variation, normal compression and augmented flow are noted throughout the right lower extremity. The visualized common femoral vein, superficial femoral vein, profunda femoral vein, popliteal vein and midcalf peroneal and posterior tibial venous segments show no evidence of deep venous thrombosis. Inguinal nodes demonstrated, size within normal limits with short axis measuring less than 1 cm. US/US venous duplex LE RT IMPRESSION: No evidence of deep venous thrombosis involving the right lower extremity. Electronically signed by: Manohar Otoole MD 05/14/2025 12:06 PM EDT
--- OUTSIDE RECORDS SUMMARY | 2025-05-14 12:13 | XMS_ITS | Patient Health Record ---
Author Organization [facility] Address [address] [place] [address] Care Team Providers Care Hospitality Host Name Role Phone Chidi Reyes M.D. Primary Care Provider Un available Boris Quinones Unavailable [phone] Allergies Allergen (clinical drug ingredient) Drug/Non Drug [...] Problem Status W/U Status Risk Notes Problem 010628928 Encounter for screening for malignant neoplasm of colon (Z12.11) Active confirmed Problem 379648842 History of adenomatous polyp of colon (Z86.010) Active confirmed Problem 16306290 Diarrhea (R19.7) Active confirmed Problem 84063148 Weight loss (R63.4) Active confirmed Problem 217233691 Celiac disease (K90.0) Active confirmed Problem 26592325 Constipation, unspecified constipation type (K59.00) Active confirmed Problem 407143101 Positive autoantibody screening for celiac disease (R76.8) Active confirmed Problem 43269910 Diarrhea, unspecified type (R19.7) Active confirmed Plan [...] Start Date Coverage End Date [facility] [address] [place] [id number] LIVIERGenaPARDEEP Self - patient is the insured Medical (General) History Medical History History ICD Code COPD/asthma Denies [place],DM,CVA,renal disease C.difficile in 2008--negative stool spec imens [...]
== END 2025-05-14 11:01 | disposition home or self-care (01) ==
LOC: HO.US 11:00
PROVIDERS: Visit Provider Physician Assistant
DX: M79.651 Pain in right thigh (principal); R60.0 Localized edema
CPT/HCPCS: 93971

== ENCOUNTER → 2025-05-14 11:03 | Outpatient (BNV) | payer OTHER, SELFPAY | PROVIDERS: Visit Provider Radiology Diagnostic Radiology | DX: M79.651 Pain in right thigh (principal) | CPT/HCPCS: 93971 ==

== ENCOUNTER 2025-05-20 07:33 | Outpatient (AMB) | payer OTHER, SELFPAY ==
[2025-05-20 07:35] VITALS: BP 122/78; BMI 34.4
--- NOTE | 2025-05-20 07:35 | MHC.OFFVIS ---
Vital Signs 05/20/25 07:35 Height 5 ft 2 in Weight 188 lb BMI 34.4 BP 122/78 Blood Pressure Location Rt brachial Position Sitting Intake Visit Reasons: Urgent follow up Intake Note: Patient following up for benign head tremor. Allergies cat dander (CATS) Allergy (Mild, Verified 05/20/25 07:40) HAYFEVER Chocolate Allergy (Mild, Verified 05/20/25 07:40) HEADACHES dog dander (DOGS) Allergy (Mild, Verified 05/20/25 07:40) HAYFEVER Environmental Allergy (Mild, Uncoded 05/20/25 07:40) HAYFEVER yellow jackets Allergy (Uncoded 05/20/25 07:40) Anaphylaxis HPI Comments Details: 64 y/o female patient presents for follow up of head tremor, and gait disorder.she is doing OK with primidone 100mg bid, gabapentin 400mg qhs magnesium 400mg qhs . Gabapentin was decreased to 400 mg qhs due to a fall. But she also took 2 topiramates to help her lose weight faster but she passed out . she was at [facility] - gabapentin was decreased to 400mg and topiramate was d/lee ann . she was restarted on topiramate 200mg bid. Her head and hand tremors have been stable with primidone Her psychiatrist gives her topiramate for PTSD. She sleeps good . Her sleep schedule is 10-11 pm to 8:30 am but wakes up frequently. She takes gabapentin 400 mg qhs baclofen 10 mg clonazepam 0.5 mg bid amitriptyline 25 mg and ambien 5 mg. she has been sober for 11 years. She stopped cigarettes She switched to vaping. 5 % nicotine. Pt has hx of anxiety and panic attack, sees psychiatrist every three months. She walks her dog daily, uses cane to walk. [facility] Medical History Vitamin B12 deficiency Hx of deep venous thrombosis Microcytic anemia COPD with emphysema Prerenal azotemia Toxic metabolic encephalopathy Transaminitis Allergies Chronic allergic rhinitis Asthma-COPD overlap syndrome COPD exacerbation COVID-19 History of abnormal cervical Pap smear Spinal stenosis, cervical region Peripheral polyneuropathy Spondylosis of cervical spine Spondylosis of lumbar spine Cocaine abuse Alcohol abuse Hepatitis HIV (human immunodeficiency virus infection) Heart murmur History of cocaine abuse History of heroin abuse Hydradenitis Former cigarette smoker Recovering alcoholic GERD (gastroesophageal reflux disease) Lumbago with sciatica, left side Arthritis Back pain On anticoagulant therapy DVT (deep venous thrombosis) History of celiac disease Anxiety Panic attacks Depression PTSD (post-traumatic stress disorder) Parkinson disease History of frequent headaches Seizure Asthma Surgical History H/O excision of ganglion cyst Hx of esophagogastroduodenoscopy History of carpal tunnel surgery of left wrist Hx of nasal septoplasty History of hemorrhoidectomy Hx of colonoscopy Family History Mother No problems noted. Social History Housing: Apartment Are you a primary district manager primary care sales to a significant other at home: No Do you presently have visiting nurse or other home services: Yes Alcohol intake: former Year quit: 2003 Comment: was seen at [facility]-called for note Patient Tobacco Use Status: Current everyday Tobacco user Tobacco use type: Cigarette Cigarette Packs Per Day: 0.5 Cigarettes Per Day: 10 Years Smoked: 45 e-Cigarette/Vaping Use: Former Use Second Hand Smoke Exposure: Yes service: No Current occupational status: disabled Cognitive needs: Yes (back brace) Hearing needs: No Vision needs: Yes Physical Exam Vital Signs: Last Vital Signs BP 122/78 05/20/25 07:35 BMI result Body Mass Index 34.4 Const General: cooperative, healthy appearing and comfortable Nutritional Appearance: average body habitus Orientation/consciousness: patient oriented x3 Limitations: no limitations HEENT Other: yes yes head tremors - mild Jaw tremors, voice and tongue tremors Head: Yes normal to inspection and Yes normocephalic Eyes Pupils: Equal, round and reactive pupils present Neck Other: restricted range of motion Neuro Other: Voice- normal, tremors No rest tremors No cog wheel rigidity gait mild off balance but can walk good without walker General: patient oriented x3, tone normal, moves all extremities and no focal motor deficits Cranial nerves: Yes CN's II-XII intact bilaterally, Yes Facial sensation intact/muscles of mastication intact, Yes Equal, round and reactive pupils present, Yes Bilaterally intact EOM present, Yes Nystagmus not present, Yes Normal facial strength present and Yes Midline tongue present Cognition (Neuro): normal cognition Psych Appearance: grossly normal Speech and movement: Normal speech and movement present Assessment & Plan Assessment & Plan (1) Benign head tremor: Comment: Likely related to cervical spondylosis and dystonia Code(s): G25.0 - Essential tremor Category: Medical (2) Gait disorder: Comment: multifactorial, arthritis, h/o alcoholism,? neuropathy Code(s): R26.9 - Unspecified abnormalities of gait and mobility Category: Medical (3) Tobacco dependence: Code(s): F17.200 - Nicotine dependence, unspecified, uncomplicated Category: Medical (4) Sleep disorder: Code(s): G47.9 - Sleep disorder, unspecified Category: Medical Plan Decrease primidone 50mg 2 tabs qam and 1 cap qhs Continue to take gabapentin to 400 mg q HS for sleep. Magnesium 400 mg qHS to prevent muscle spasm. she is also on clonazepam 0.5mg bid baclofen 10mg 2 tabs at bedtime- will consider decreasing Topiramate 200mg bid for mood Polypharmacy is likely worsening her balance Sleep hygiene education provided. Advised patient to limit smoking in the evening. Coding Level of Care Code Est Pt Level 4 (39730) Complex EM visit Add On G2211 Diagnoses Benign head tremor G25.0 Gait disorder R26.9 Tobacco dependence F17.200 Sleep disorder G47.9
--- OUTSIDE RECORDS SUMMARY | 2025-05-20 07:35 | XMS_ITS | Patient Health Record ---
Author Organization [facility] Address [address] [place] [address] Care Team Providers Care In Store Marketing Associate Name Role Phone Chidi Reyes M.D. Primary Care Provider Un available Boris Quinones Unavailable [phone] Allergies Allergen (clinical drug ingredient) Drug/Non Drug [...] Problem Status W/U Status Risk Notes Problem 058019872 Encounter for screening for malignant neoplasm of colon (Z12.11) Active confirmed Problem 288744437 History of adenomatous polyp of colon (Z86.010) Active confirmed Problem 40192509 Diarrhea (R19.7) Active confirmed Problem 86884993 Weight loss (R63.4) Active confirmed Problem 612394103 Celiac disease (K90.0) Active confirmed Problem 34396589 Constipation, unspecified constipation type (K59.00) Active confirmed Problem 641403629 Positive autoantibody screening for celiac disease (R76.8) Active confirmed Problem 85350875 Diarrhea, unspecified type (R19.7) Active confirmed Plan [...] Start Date Coverage End Date [facility] [address] [place] [id number] LIVIERGenaPARDEEP Self - patient is the insured Medical (General) History Medical History History ICD Code COPD/asthma Denies [place],DM,CVA,renal disease C.difficile in 2008--negative stool spec imens [...]
== END 2025-05-20 08:09 | disposition home or self-care (01) ==
LOC: HO.HSMS 07:34
PROVIDERS: PCP Physician Assistant; Visit Provider Psychiatry & Neurology Neurology
DX: G25.0 Essential tremor (principal); R26.9 Unspecified abnormalities of gait and mobility; F17.200 Nicotine dependence, unspecified, uncomplicated; G47.9 Sleep disorder, unspecified
CPT/HCPCS: 99214; G2211

== ENCOUNTER → 2025-05-20 07:33 | Outpatient (BNVA) | payer OTHER, SELFPAY | PROVIDERS: PCP Physician Assistant; Visit Provider Psychiatry & Neurology Neurology | DX: G25.0 Essential tremor (principal); R26.9 Unspecified abnormalities of gait and mobility; F17.200 Nicotine dependence, unspecified, uncomplicated; G47.9 Sleep disorder, unspecified | CPT/HCPCS: 99212 ==

== ENCOUNTER 2025-05-20 09:10 | Outpatient (RCR) | payer OTHER, SELFPAY ==
--- NOTE | 2025-04-29 09:59 | MHC.PT.EP ---
[facility] [place] Office [place] Office [place] Office [address] Elkin Eric [address] [phone] F: [phone] F: [phone] F: [phone] F: [phone] Physical Therapy Plan of Care Date of Evaluation: 04/29/25 Date of Surgery: Diagnosis: lumbar radiculopathy Assessment: 64 y/o female referred to PT with lumbar radiculopathy. Of note, PMH significant for Parkinson's, hx DVT on Eliquis, COPD, HIV, and chronic pain. Currently she reports pain and difficulty with walking, sitting, standing, chores, dressing, and has MEDICAL RECORDS ASSISTANT services for assistance with chores/ cleaning/ bathing, grooming. Examination shows decreased lumbar/hip mobility, decreased core/hip strength, breath holding tendencies, impaired balance and impaired postural awareness. Recommend PT 2x/week for 5 weeks to address impairments, implement HEP, and optimize functional mobility. Frequency and Duration: The patient will be seen 2x/week for 5 weeks Short Term Goals: 3 weeks I with HEP Fdc Goals: 5 weeks I with HEP and self management of sx Pt will be able to perform cooking tasks with pain < 3/10 Pt will be able to walk > 20 min with rollator with pain < 3/10 Improve [place] to 30.50 (IR 40/50) Treatment Plan: Modalities to reduce pain, spasms and effusion. Manual therapy to restore motion and function. Therapeutic exercise to improve strength and flexibility. Neuromuscular re-education for posture and balance. Therapeutic activities to return to functional activities of daily living. Electronically signed by: Patria To PT Please sign and return to therapist. Thank you for your referral.
--- NOTE | 2025-06-07 14:35 | MHC.PT.DC ---
[facility] [place] Office [place] Office [place] Office [address] Elkin Eric [address] [phone] F: [phone] F: [phone] F: [phone] F: [phone] Physical Therapy Discharge Report Diagnosis: lumbar radiculopathy Date of Surgery: Date of Evaluation: 04/29/25 Date of Discharge: 06/07/25 Treatments to Date: 4 Cancellations to Date: 3 No Shows to Date: 0 Discharge Status: Recommend MD Follow-up Discharge Summary: Pt called to discharge after a fall in which she has rib fractures and other injuries. She has f/u with MD and will hold PT at this time while healing Electronically signed by: Patria To PT Please sign and return to therapist. Thank you for your referral.
== END 2025-06-07 14:35 | disposition home or self-care (01) ==
LOC: HO.PT 09:10
PROVIDERS: PCP Physician Assistant; Visit Provider Physician Assistant
DX: M54.16 Radiculopathy, lumbar region (principal)
CPT/HCPCS: 97110; 97112; 97162; 97530

== ENCOUNTER 2025-05-25 12:54 | Outpatient (AMB) | payer OTHER, SELFPAY ==
--- NOTE | 2025-05-25 13:20 | MHC.OFFVIS ---
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 Patient was referred by her PCP Sudhir Martin on 04/27/25 who provided her a wrist brace that gives her mild relief. She stated that about four years ago she had Carpal tunnel surgery and ever since then she has had constant pain. Patient states that no injures to report. She reports that her left index and middle finger have constant pain radiating up to the elbow. 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 Patient was referred by her PCP Sudhir Martin on 04/27/25 who provided her a wrist brace that gives her mild relief. She stated that about four years ago she had Carpal tunnel surgery and ever since then she has had constant pain. Patient states that no injures to report. She reports that her left index and middle finger have constant pain radiating up to the elbow. [facility] Medical History Vitamin B12 deficiency Hx of deep venous thrombosis Microcytic anemia COPD with emphysema Prerenal azotemia Toxic metabolic encephalopathy Transaminitis Allergies Chronic allergic rhinitis Asthma-COPD overlap syndrome COPD exacerbation COVID-19 History of abnormal cervical Pap smear Spinal stenosis, cervical region Peripheral polyneuropathy Spondylosis of cervical spine Spondylosis of lumbar spine Cocaine abuse Alcohol abuse Hepatitis HIV (human immunodeficiency virus infection) Heart murmur History of cocaine abuse History of heroin abuse Hydradenitis Former cigarette smoker Recovering alcoholic GERD (gastroesophageal reflux disease) Lumbago with sciatica, left side Arthritis Back pain On anticoagulant therapy DVT (deep venous thrombosis) History of celiac disease Anxiety Panic attacks Depression PTSD (post-traumatic stress disorder) Parkinson disease History of frequent headaches Seizure Asthma Surgical History H/O excision of ganglion cyst Hx of esophagogastroduodenoscopy History of carpal tunnel surgery of left wrist Hx of nasal septoplasty History of hemorrhoidectomy Hx of colonoscopy Family History Mother No problems noted. Social History Housing: Apartment Are you a primary healthcare advisory services manager to a significant other at home: No Do you presently have visiting nurse or other home services: Yes Alcohol intake: former Year quit: 2003 Comment: was seen at [facility]-called for note Patient Tobacco Use Status: Current everyday Tobacco user Tobacco use type: Cigarette Cigarette Packs Per Day: 0.5 Cigarettes Per Day: 10 Years Smoked: 45 e-Cigarette/Vaping Use: Former Use Second Hand Smoke Exposure: Yes service: No Current occupational status: disabled Cognitive needs: Yes (back brace) Hearing needs: No Vision needs: Yes Review of Systems Const All systems reviewed & are unremarkable except as noted in HPI and below Physical Exam Extrem Other: Neuro: Normal sensation of the tips of all digits of bilateral hands in the office today No thenar or intrinsic wasting. Good APB muscle firing and good finger cross. Vascular: Capillary refill brisk. ROM: Patient can make a fist and extend all their digits, with some significant difficulty with extension of the index finger of the left hand Skin: No lacerations or abrasions noted. General: No ecchymosis. No erythema or evidence of infection. [] Assessment & Plan Assessment & Plan (1) Numbness and tingling in left hand: Code(s): R20.0 - Anesthesia of skin; R20.2 - Paresthesia of skin Category: Medical (2) Stiffness of finger joint of left hand: Code(s): M25.642 - Stiffness of left hand, not elsewhere classified Category: Medical Plan 1. Numbness and tingling of left hand 2. Stiffness of the left hand At this time, EMG and nerve conduction study is ordered to assess the health of the nerves of the left upper extremity After study, we will determine what further treatment options are indicated Patient understands this and is amenable to this plan Follow-up after study Orders: Orders NE nerve conduction velocity 05/25/25 R20.0 - Anesthesia of skin, R20.2 - Paresthesia of skin NE electromyogram (EMG) 05/25/25 R20.0 - Anesthesia of skin, R20.2 - Paresthesia of skin Coding Level of Care Code New Pt Level 3 (39150) Diagnoses Numbness and tingling in left hand R20.0; R20.2 Stiffness of finger joint of left hand M25.642
--- OUTSIDE RECORDS SUMMARY | 2025-05-25 13:37 | XMS_ITS | Patient Health Record ---
Author Organization [facility] Address [address] [place] [address] Care Team Providers Care Atmospheric Physicist Name Role Phone Chidi Reyes M.D. Primary Care Provider Un available Boris Quinones Unavailable [phone] Allergies Allergen (clinical drug ingredient) Drug/Non Drug [...] Problem Status W/U Status Risk Notes Problem 940407241 Encounter for screening for malignant neoplasm of colon (Z12.11) Active confirmed Problem 540355901 History of adenomatous polyp of colon (Z86.010) Active confirmed Problem 60728713 Diarrhea (R19.7) Active confirmed Problem 69477881 Weight loss (R63.4) Active confirmed Problem 844098389 Celiac disease (K90.0) Active confirmed Problem 88842514 Constipation, unspecified constipation type (K59.00) Active confirmed Problem 852350946 Positive autoantibody screening for celiac disease (R76.8) Active confirmed Problem 48706740 Diarrhea, unspecified type (R19.7) Active confirmed Plan [...] Start Date Coverage End Date [facility] [address] [place] [id number] LIVIERGenaPARDEEP Self - patient is the insured Medical (General) History Medical History History ICD Code COPD/asthma Denies [place],DM,CVA,renal disease C.difficile in 2008--negative stool spec imens [...]
== END 2025-05-25 13:58 | disposition home or self-care (01) ==
LOC: HO.HOS 13:00
PROVIDERS: PCP Physician Assistant
DX: R20.0 Anesthesia of skin (principal); R20.2 Paresthesia of skin; M25.642 Stiffness of left hand, not elsewhere classified
CPT/HCPCS: 99213

== ENCOUNTER → 2025-05-25 12:54 | Outpatient (BNVA) | payer OTHER, SELFPAY | PROVIDERS: PCP Physician Assistant | DX: M25.642 Stiffness of left hand, not elsewhere classified (principal); R20.0 Anesthesia of skin; R20.2 Paresthesia of skin | CPT/HCPCS: 99212 ==

== ENCOUNTER 2025-06-01 08:23 | Outpatient (AMB) | payer OTHER, SELFPAY ==
--- NOTE | 2025-06-01 09:16 | A.OFFVIS_ITS ---
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 Acoustic Intelligence Specialist: Acoustic Intelligence Specialist Present (Rylie) Accompanied by: Self / Same As Patient Allergies cat dander (CATS) Allergy (Mild, Verified 06/01/25 09:20) HAYFEVER Chocolate Allergy (Mild, Verified 06/01/25 09:20) HEADACHES dog dander (DOGS) Allergy (Mild, Verified 06/01/25 09:20) HAYFEVER Environmental Allergy (Mild, Uncoded 05/20/25 07:40) HAYFEVER yellow jackets Allergy (Uncoded 05/20/25 07:40) Anaphylaxis Is last menstrual period known: No Post menopausal: Yes Patient : No HPI Comments Details: Patient is a postmenopausal woman 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 She is doing well with no rehabilitation teacher concerns. Currently not sexually active in many years. Denies any vaginal dryness or irritation. Attempting to eat a healthy diet. Last pap smear; 2021, negative. Last mammogram; not UTD. Colonoscopy is not UTD. Denies any family history of breast, ovarian or colon cancer. [facility] Medical History (Updated 06/01/25 @ 09:43 by Cony Fonseac CNM) Vitamin B12 deficiency Hx of deep venous thrombosis Microcytic anemia COPD with emphysema Prerenal azotemia Toxic metabolic encephalopathy Transaminitis Allergies Chronic allergic rhinitis Asthma-COPD overlap syndrome COPD exacerbation COVID-19 History of abnormal cervical Pap smear Spinal stenosis, cervical region Peripheral polyneuropathy Spondylosis of cervical spine Spondylosis of lumbar spine Cocaine abuse Alcohol abuse Hepatitis Heart murmur History of cocaine abuse History of heroin abuse Hydradenitis Former cigarette smoker Recovering alcoholic GERD (gastroesophageal reflux disease) Lumbago with sciatica, left side Arthritis Back pain On anticoagulant therapy DVT (deep venous thrombosis) History of celiac disease Anxiety Panic attacks Depression PTSD (post-traumatic stress disorder) Parkinson disease History of frequent headaches Seizure Asthma Surgical History H/O excision of ganglion cyst Hx of esophagogastroduodenoscopy History of carpal tunnel surgery of left wrist Hx of nasal septoplasty History of hemorrhoidectomy Hx of colonoscopy Family History Mother No problems noted. Social History Housing: Apartment Are you a primary acute care certified nursing assistant to a significant other at home: No Do you presently have visiting nurse or other home services: Yes Alcohol intake: former Year quit: 2003 Comment: was seen at [facility]-called for note Patient Tobacco Use Status: Current everyday Tobacco user Tobacco use type: Cigarette Cigarette Packs Per Day: 0.5 Cigarettes Per Day: 10 Years Smoked: 45 e-Cigarette/Vaping Use: Former Use Second Hand Smoke Exposure: Yes Patient : No service: No Current occupational status: disabled Cognitive needs: Yes (back brace) Hearing needs: No Vision needs: Yes Female Reproductive History Menstrual Total pregnancies: 3 Full term: 1 Ab spontaneous: 2 Date of last pap smear: 03/30/22 (negative pap smear, negative hpv ) History of abnormal pap smear: Yes (01/05 ascus +hpv 02/02 colpo cristela 1 09/05 ascus) Date of Mammogram: 03/24/24 (bi rad 2) Review of Systems Const All systems reviewed & are unremarkable except as noted in HPI and below Reports as per HPI Eyes Reports no additional complaints ENT Reports no additional complaints Card Reports no additional complaints Resp Reports no additional complaints GI Reports as per HPI and Reports no additional complaints Reports as per HPI Musc Reports no additional complaints Skin/Breast Reports as per HPI Neuro Reports no additional complaints Psych Reports no additional complaints Endo Reports no additional complaints Carlos/Lymph Reports no additional complaints Aller/Immun Reports no additional complaints Physical Exam Vital Signs: Last Vital Signs BP 124/72 06/01/25 09:29 BMI result Body Mass Index 33.8 Const General: cooperative, healthy appearing, no acute distress, well developed and alert Orientation/consciousness: patient oriented x3 HEENT Head: Yes normal to inspection Eyes General: appearance normal, both eyes and all related structures Neck Neck: Yes normal visual inspection Thyroid: Thyroid normal Chest Chest palpation & inspection: normal inspection of the chest and other (no puckering, dimpling, peau de orange, retraction, discharge, masses) Breast/axilla inspection: normal inspection of the breasts Breast/axilla palpation: normal palpation of the breasts Resp Effort & Inspection: normal respiratory effort GI Inspection: Yes normal to inspection and Yes obesity Palpation (GI): Soft to palpation Rectal Exam - Female: deferred General: Yes bladder normal to palpation External Female Exam: normal external appearance and normal appearance of the urethra Speculum Exam - Vagina: normal appearance of the vagina, normal palpation and normal vaginal discharge Speculum Exam - Cervix: normal appearance of the cervix and normal palpation Bimanual exam- vagina & uterus: normal bimanual exam, normal palpation, uterine size normal, bladder normal to palpation, normal palpation and non-tender Bimanual Exam- Adnexa, other: no masses Skin General skin exam: no rashes or lesions noted Rashes: no rashes Neuro General: patient oriented x3 Cognition (Neuro): normal cognition Extrem General: Yes normal to inspection Psych Attitude: cooperative Thought process: Normal thought process present Assessment & Plan Assessment & Plan (1) Encounter for well woman exam with routine gynecological exam: Code(s): Z01.419 - Encounter for gynecological examination (general) (routine) without abnormal findings Category: Medical Plan Discussed: Current recommendations for pap smears per ASCCP guidelines. Breast awareness, periodic self breast exams and yearly mammogram. Maintain a healthy lifestyle, well balanced diet including Calcium 1,200 mg and Vitamin D 600 IU daily, and routine exercise. Use of condoms for STI prevention if indicated. Contact the office with any postmenopausal bleeding. Patient verbalizes understanding and agrees to the plan of care. She was given opportunity to ask questions and all questions were answered to the best of my ability. RTO in 1 year for annual rehabilitation teacher exam. This note is constructed using voice recognition software. While every effort has been made to ensure accuracy, certified ophthalmic assistant errors may have been included. Orders: Orders MM tomosynthesis screening BI Today Z12.31 - Encounter for screening mammogram for malignant neoplasm of breast Coding Level of Care Code Est Pt Prev Care 40-64y(08792) Diagnoses Encounter for well woman exam with routine gynecological exam Z01.419
[2025-06-01 09:29] VITALS: BP 124/72; BMI 33.8
== END 2025-06-01 09:47 | disposition home or self-care (01) ==
LOC: HO.HWS 08:23
PROVIDERS: PCP Physician Assistant; Visit Provider Advanced Practice Midwife
DX: Z01.419 Encounter for gynecological examination (general) (routine) without abnormal findings (principal)
CPT/HCPCS: 99396; 99459

== ENCOUNTER → 2025-06-01 08:23 | Outpatient (BNVA) | payer OTHER, SELFPAY | PROVIDERS: PCP Physician Assistant; Visit Provider Advanced Practice Midwife | DX: Z01.419 Encounter for gynecological examination (general) (routine) without abnormal findings (principal) | CPT/HCPCS: 99396 ==

== ENCOUNTER 2025-06-06 16:09 | Emergency (ER) | payer OTHER, SELFPAY ==
--- NOTE | ~2025-06-06 | CT_ITS ---
CLINICAL HISTORY: recent fall, outpatient XR w L rib fracture CT chest without contrast Comparison: None provided Findings: Limited evaluation without intravenous contrast. The heart is within normal limits in size. No pericardial effusion. Atherosclerotic vascular disease with no aneurysm of the thoracic aorta The visualized thyroid and mediastinum are unremarkable. Bilateral lower lobe mostly linear opacities in mild medial segment right middle lobe opacity most suggestive of atelectasis. Minimal lingular subsegmental atelectasis versus scarring. No pleural effusion, pneumothorax or pneumomediastinum. The upper abdomen demonstrates no acute process. Mild bilateral nonspecific perinephric stranding. Slight deformity of left 5th rib posteriorly consistent with a fracture which is of indeterminate age. Otherwise ribs are intact. Diffuse demineralization. Mild spondylosis and thoracic spine. IMPRESSION: 1. Bilateral lower lobe opacities in mild medial segment right middle lobe opacity likely atelectasis. 2. Slight deformity left 5th rib posteriorly suggestive of fracture which is of indeterminate age. No additional acute fractures. No pneumothorax. This document has been electronically signed by: Yumiko Mann MD on 06/06/2025 19:16:43
[2025-06-06 16:23] VITALS: BP 132/56; BP 156/80; PULSE 78; PULSE 90; RESP 16; TEMP 36.8; O2SAT 94; O2SAT 96; BMI 33.8
--- NOTE | 2025-06-06 16:47 | ED_ITS ---
HPI - Back Pain/Injury General Chief Complaint: Back Pain/Injury Stated Complaint: low back pain Time Seen by Provider: 06/06/25 16:19 Source: patient and EMS Mode of arrival: EMS Limitations: no limitations History of Present Illness ED Provider: Delma Saldana NP HPI Narrative: Patient is a 64 year old female past medical history of obesity, DVT on Eliquis, polysubstance abuse with reported sobriety since 2013, myofascial pain syndrome involving the thoracic spine, prior compression fractures of the thoracic spine, osteoarthritis, chronic knee pain, chronic neck pain with stenosis in the cervical region, peripheral polyneuropathy, Parkinson's disease, underlying gait instability, seizure disorder, anxiety, depression, COPD who presents emergency department for evaluation. She reports that she has ongoing chronic issues with pain to her thoracic spine. She states that she has been seen by a back specialist reportedly threw [facility] 1.5 months ago with recommendation for cortisone shots, she states however ?they do not work for more than 30 minutes and they make you fat? reporting that she has received them in the past from a doctor radha. She advise him that she would like to have surgery, however she was made aware that there was not a surgical option. Evidently her primary care provider is trying to get her into see a new back specialist. In the interim, she reports a mechanical trip and fall on Saturday; 2 days ago. She was walking with her cane when she tripped and fell, landing into a seated position on the floor onto his buttocks but her back struck against the couch. She reportedly seen at urgent care, was advised that she has 2 rib fractures in the front but my pain is in the back , was advised to perform conservative treatment and was given a prescription for tramadol. She states that today she has only taken acetaminophen, although she does state that she has Tylenol with codeine as well at home, she did not take this nor the tramadol that was prescribed to her. She denies shortness of breath, difficulty breathing, no additional falls. Denies having any headache at this time, anterior chest pain, numbness or tingling of her extremities. Related Data Home Medications ?Medication ?Instructions ?Recorded ?Confirmed clonazepam 1 mg tablet 0.5 mg PO BID 10/31/2204/08 desvenlafaxine succinate 50 mg 50 mg PO DAILY 07/30/24 04/08/25 tablet,extended release 24 hr zolpidem 10 mg tablet 5 mg PO BEDTIME 10/26/24 Previous Rx's ?Medication ?Instructions ?Recorded disposable gloves #1,000 ea 04/02/23 diaper,brief,adult,disposable #120 ea 05/20/23 miscellaneous medical supply 1 ea miscellaneous DAILY 99 days 10/28/23 #1 ea compr.stocking,knee,long,large #2 ea 11/07/23 cane #1 ea 11/13/23 back brace #1 ea 12/02/23 soft neck brace #1 ea 12/02/23 incontinence pad, liner, disp #200 ea 02/19/24 albuterol sulfate 90 mcg/actuation 2 puff inhalation Q ID PRN 03/24/24 aerosol inhaler (Ventolin HFA) shortness of breath or wheezing 30 days #18 grams disposable face masks #1 ea 03/26/24 fluticasone fur. 200 mcg-umeclid 1 inh inhalation BAHMAN Y 30 days #60 03/26/24 62.5 mcg-vilant 25 mcg ea inhalat.powder (Trelegy Ellipta) fluticasone furoate 200 1 inh inhalation DAILY 30 da ys #60 04/06/24 mcg-vilanterol 25 mcg/dose ea inhalation powder (Breo Ellipta) diphenhydramine HCl 25 mg capsule 25 mg PO Q8H allergi es 90 days 06/23/24 (Banophen) #270 caps round raised toilet seat #1 ea 07/09/24 vitamin B complex and vitamin C 1 cap PO DAILY 90 days #90 caps 11/09/24 no.20-folic acid 1 mg capsule (Wescaps) humidifiers (Cool Mist Humidifier) #1 ea 11/30/24 topiramate 200 mg tablet 200 mg PO BID 90 days #180 t abs 11/30/24 folic acid 1 mg tablet 1 mg PO DAILY 90 days #90 ta bs 12/21/24 furosemide 20 mg tablet 20 mg PO DAILY 90 days #90 t abs 12/21/24 cholecalciferol (vitamin D3) 50 50 mcg PO DAILY 90 day s #90 caps 01/15/25 mcg (2,000 unit) capsule magnesium oxide 400 mg PO BEDTIME 90 days #9 0 caps 01/15/25 alendronate 70 mg tablet (Fosamax) 70 mg PO QWEEK 12 w eeks #12 tabs 01/20/25 lidocaine 5 % topical patch 1 patch topical DAILY 30 d ays #30 01/20/25 ea baclofen 10 mg tablet 20 mg (2 x 10 mg) PO BEDTIME 90 01/27/25 days #180 tabs EXERCISE BIKE #1 ea 02/01/25 bed pads #120 ea 02/03/25 Soft TLSO with shoulder straps #1 ea 03/04/25 epinephrine 0.3 mg/0.3 mL 0.3 mg (0.3 mL) IM ONCE PRN 03/25/25 injection, auto-injector (EpiPen anaphylaxis 30 days # 2 ea 2-Kamaljit) walker (Ultra-Light Rollator misc) #1 ea 03/26/25 leg brace (Knee Support Brace) #1 ea 03/31/25 montelukast 10 mg tablet 10 mg PO DAILY 90 days #90 t abs 04/13/25 adult pullups #300 ea 04/19/25 acetaminophen 650 mg 650 mg PO Q12H 30 days #60 t abs 04/22/25 tablet,extended release (Tylenol Arthritis Pain) omeprazole 20 mg capsule,delayed 20 mg PO DAILY 90 day s #90 caps 05/15/25 release Left wrist splint #1 ea 05/17/25 apixaban 5 mg tablet (Eliquis) 5 mg PO BID 90 days #18 0 tabs 05/25/25 diclofenac sodium 1 % topical gel 4 g topical QID 30 d ays #100 grams 05/25/25 gabapentin 400 mg capsule 400 mg PO DAILY 30 days #30 caps 05/25/25 oxybutynin chloride 15 mg 15 mg PO DAILY 90 days #90 t abs 05/25/25 tablet,extended release 24 hr primidone 50 mg tablet 100 mg (2 x 50 mg) PO TID RL S 3 05/25/25 months #540 tabs betamethasone dipropionate 0.05 % 1 appl topical DAILY PRN skin 05/27/25 topical cream irritation 4 weeks #45 grams loperamide 2 mg capsule 2 mg PO Q8H PRN loose stool 7 days 05/28/25 #21 caps Allergies Allergy/AdvReac Type Severity Reaction Status Date / Time cat dander (CATS) Allergy Mild HAYFEVER Verified 06/06/25 16:27 Chocolate Allergy Mild HEADACHES Verified 06/06/25 16:27 dog dander (DOGS) Allergy Mild HAYFEVER Verified 06/06/25 16:27 Environmental Allergy Mild HAYFEVER Uncoded 05/20/25 07:40 yellow jackets Allergy Anaphylaxis Uncoded 05/20/25 07:40 Review of Systems 2 Review of Systems: Yes all other systems are reviewed and are negative PMFSH Past Medical History Attestation statement: The following information was validated with the patient. Source: old records reviewed Medical History Vitamin B12 deficiency Hx of deep venous thrombosis Microcytic anemia COPD with emphysema Prerenal azotemia Toxic metabolic encephalopathy Transaminitis Allergies Chronic allergic rhinitis Asthma-COPD overlap syndrome COPD exacerbation COVID-19 History of abnormal cervical Pap smear Spinal stenosis, cervical region Peripheral polyneuropathy Spondylosis of cervical spine Spondylosis of lumbar spine Cocaine abuse Alcohol abuse Hepatitis Heart murmur History of cocaine abuse History of heroin abuse Hydradenitis Former cigarette smoker Recovering alcoholic GERD (gastroesophageal reflux disease) Lumbago with sciatica, left side Arthritis Back pain On anticoagulant therapy DVT (deep venous thrombosis) History of celiac disease Anxiety Panic attacks Depression PTSD (post-traumatic stress disorder) Parkinson disease History of frequent headaches Seizure Asthma Surgical History H/O excision of ganglion cyst Hx of esophagogastroduodenoscopy History of carpal tunnel surgery of left wrist Hx of nasal septoplasty History of hemorrhoidectomy Hx of colonoscopy Family History Family History Mother No problems noted. Social History Social History Housing: Apartment Are you a primary care tech to a significant other at home: No Do you presently have visiting nurse or other home services: Yes Alcohol intake: former Year quit: 2003 Comment: was seen at [facility]-called for note Patient Tobacco Use Status: Current everyday Tobacco user Tobacco use type: Cigarette Cigarette Packs Per Day: 0.5 Cigarettes Per Day: 10 Years Smoked: 45 e-Cigarette/Vaping Use: Former Use Second Hand Smoke Exposure: Yes Advance Directives: No Advance Directives Information Provided: No service: No Current occupational status: disabled Cognitive needs: Yes (back brace) Hearing needs: No Vision needs: Yes Physical Exam 2 Vital Signs: Vital Signs: Last Vital Signs Temp 98.2 F 06/06/25 16:23 Pulse 78 06/06/25 16:23 Resp 16 06/06/25 16:23 BP 132/56 L 06/06/25 16:23 Pulse Ox 94 06/06/25 16:23 O2 Del Method Room Air 06/06/25 16:23 BMI result Body Mass Index 33.8 Appearance: Alert.?Oriented to person, place and time. No acute distress.?Normal affect. Eyes: Pupils equal, round and reactive to light.? ENT: Pharynx normal.?? Neck: Normal inspection.? Neck supple.?? CVS: Heart sounds normal. Normal heart rate and rhythm.? Pulses normal.?? Respiratory: No respiratory distress.? Lung sounds clear to auscultation bilaterally. Chest wall without ecchymosis, No crepitus. Back: diffuse posterior left-sided thoracic tenderness upon palpation, noted upon left thoracic paraspinal muscles in the beneath the scapula, midline thoracic spine tenderness along T3-T10 without palpable step-offs or deformities Abdomen: Soft and non-tender. Normoactive bowel sounds. Skin: Skin warm and dry.? Normal skin color.? ? Extremities: No lower extremity edema.? No calf ttp? Neuro: Moves all extremities spontaneously. Sensation intact bilaterally.No focal neuro deficits. Ambulates with normal steady gait. Course Reevaluation(s) Reevaluation #1: signed out to Katarina OSEGUERA pending serum labs, ECG, CT chest Time: 18:07 Reevaluation #2: Don Smith PA-C have accepted care of the patient and signed out pending labs, CT of the chest and likely discharge home CT chest:IMPRESSION: 1. Bilateral lower lobe opacities in mild medial segment right middle lobe opacity likely atelectasis. 2. Slight deformity left 5th rib posteriorly suggestive of fracture which is of indeterminate age. No additional acute fractures. No pneumothorax. Labs: No leukocytosis, not anemic, no electrolyte abnormality, troponin less than 2.7............ We will be ordering spirometry Time: 19:45 Medications Administered Discontinued Medications Generic Name Dose Route Start Last Admin Trade Name Nora PRN Reason Stop Dose Admin Oxycodone HCl 5 mg 06/06/25 17:23 06/06/25 18:02 Oxycodone Hcl Immed Release 5 Mg Tablet PO 06/06/25 17:24 5 mg ONCE ONE Administration Medical Decision Making Medical Decision Making [facility] Narrative: Patient is a 64 year old female past medical history of obesity, DVT on Eliquis, polysubstance abuse, myofascial pain syndrome involving the thoracic spine, prior compression fractures of the thoracic spine, osteoarthritis, chronic knee pain, chronic neck pain with stenosis in the cervical region, peripheral polyneuropathy, Parkinson's disease, underlying gait instability, seizure disorder, anxiety, depression, COPD Presenting to emergency department for evaluation of acute on chronic thoracic back pain, as per HPI in the setting of a recent injury where she was advised she had to anterior left rib fractures, and outpatient x-ray at an urgent Care, unfortunately these XR images are not available to me. On evaluation she has no respiratory distress, no crepitus, no ecchymosis, no evidence of flail chest. She has chronic back pain but she states that this has increased. An fortunately, even though she is she has Tylenol with codeine at home as well as a prescription for tramadol that she was just given, she has not taken either of these, has only taken the acetaminophen without improvement. Concern for whether this is acute exacerbation of her ongoing chronic pain versus potentially new pain from rib fractures, will obtain CT of the chest for further evaluation/potential additional rib fractures. I have agreed to give her a single dose of oxycodone while in the emergency department, and discuss the importance of following up with her outpatient providers given her chronic ongoing pain. However, if there is alternatively new/acute fractures or thoracic spine fractures on imaging, may consider alternative course of treatment/pain management. She denies any anterior chest pain, she states she has been compliant with her Eliquis, she is not tachycardic has no tachypnea or hypoxia, lower suspicion for pulmonary embolism, will obtain serum labs in addition to ECG to exclude ACS though I have a lower suspicion for this. Differential Diagnosis Differential Diagnoses: The differential diagnosis associated with the presentation includes (Acute thoracic spine compression fracture, rib fracture, acute on chronic pain of the thoracic spine, ACS, PE) Admission/Observation Consideration of admission/observation: Escalation of care including admission/observation considered Lab Data MDM Lab Attestation statement: I reviewed the patient's lab results. 06/06/25 19:33 06/06/25 19:33 Labs: Lab Results 06/06/25 Range/Units 19:33 WBC 6.7 (4.8-10.8) X10*3/uL RBC 3.38 L (4.20-5.50) X10*6/uL Hgb 11.2 L (12.0-16.0) g/dl Hct 32.4 L (37.0-47.0) % MCV 95.9 (80.0-98.0) fL MCH 33.1 H (27.0-33.0) pg MCHC 34.6 (31.0-35.0) g/dl RDW 13.7 (11.0-16.0) % Plt Count 239 (160-400) X10*3/uL MPV 9.9 (9.4-12.3) fL Immature Gran % (Auto) 0.3 (0.0-0.4) % Neut % (Auto) 46.6 (45-73) % Lymph % (Auto) 33.7 (20-40) % [place] % (Auto) 14.1 H (2-11) % Eos % (Auto) 4.6 H (0-4) % Baso % (Auto) 0.7 (0-2) % Lymph # (Auto) 2.3 (1.2-4.9) X10*3/uL [place] # (Auto) 1.0 (0.1-1.2) X10*3/uL Eos # (Auto) 0.3 (0.0-0.4) X10*3/uL Baso # (Auto) 0.1 (0.0-0.2) X10*3/uL Abs Immat Gran (auto) 0.02 (0.00-0.03) X10*3/uL Absolute Neuts (auto) 3.1 (2.0-8.3) x10*3/uL Absolute Nucleated RBC 0.000 (0.0-0.012) X10*3/uL Nucleated RBC % (auto) 0.0 (0.0-0.2) /100WBC Sodium 133 L (135-145) mmol/L Potassium 4.5 (3.3-5.1) mmol/L Chloride 101 (96-108) mmol/L Carbon Dioxide 23 (22-29) mmol/L Anion Gap 14 (12-20) BUN 13 (9-16) mg/dL Creatinine 1.24 (0.5-1.4) mg/dL Estim Creat Clear Calc 46.0 Estimated GFR 44 Random Glucose 99 (60-115) mg/dL Calcium 8.8 (8.4-10.2) mg/dL Total Bilirubin 0.2 (0.0-1.0) mg/dL AST 21 (5-31) U/L ALT 23 (0-31) U/L Alkaline Phosphatase 80 (39-117) U/L Troponin I High Sens < 2.7 (<3.5-17.0) ng/L Total Protein 6.7 (6.5-8.0) g/dL Albumin 4.2 (3.5-5.0) g/dL Radiology Impression Discussion of test interpretation with radiology: I have reviewed the radiologist's reading. Independent Historian Clinical information obtained from an independent historian. History obtained from or confirmed by: EMS External Record Review External record reviewed: Outpatient record Prescription Management I considered prescription management with: Pain Medication Chronic Conditions Patient?s care impacted by: Other (See narrative above) Discharge Plan Discharge Clinical Impression: Fracture of left fifth rib Patient Disposition: Home, Self-Care Instructions: How to Use an Incentive Spirometer (ED), Rib Fracture (ED) Additional Instructions: You were found to have an age indeterminate left 5th rib posterior fracture. You had no lab abnormalities including a cardiac enzymes which was negative. See home care instructions. Use the incentive spirometry as recommended. You can use your home pain medications to manage your discomfort. Follow up with your primary care provider as needed. Prescriptions: No Action (DME) disposable gloves Misc See Rx Instructions .Route Qty: 1000 3RF Rx Instructions: As directed (DME) diaper,brief,adult,disposable Misc See Rx Instructions .Route Qty: 120 0RF Rx Instructions: As directed miscellaneous medical supply Misc 1 ea miscellaneous DAILY 99 Days Qty: 1 0RF (DME) cane Device See Rx Instructions .Route Qty: 1 0RF Rx Instructions: As directed (DME) soft neck brace See Rx Instructions .Route .MEDSUPPLY Qty: 1 0RF Rx Instructions: As directed (DME) back brace Misc See Rx Instructions .Route Qty: 1 0RF Rx Instructions: As directed (DME) incontinence pad, liner, disp Pad See Rx Instructions .Route Qty: 200 1RF Rx Instructions: As directed Trelegy Ellipta 200-62.5-25 mcg blister with device 1 inh inhalation DAILY 30 Days Qty: 60 12RF (DME) disposable face masks See Rx Instructions .Route .MEDSUPPLY Qty: 1 0RF Rx Instructions: As directed fluticasone furoate-vilanterol [Breo Ellipta] 200-25 mcg/dose blister with device 1 inh inhalation DAILY 30 Days Qty: 60 11RF diphenhydramine HCl [Banophen] 25 mg capsule 25 mg PO Q8H 90 Days Qty: 270 3RF (DME) round raised toilet seat See Rx Instructions .Route .MEDSUPPLY Qty: 1 0RF Rx Instructions: As directed Wescaps 1 mg capsule 1 cap PO DAILY 90 Days Qty: 90 1RF folic acid 1 mg tablet 1 mg PO DAILY 90 Days Qty: 90 0RF furosemide 20 mg tablet 20 mg PO DAILY 90 Days Qty: 90 0RF cholecalciferol (vitamin D3) 50 mcg (2,000 unit) capsule 50 mcg PO DAILY 90 Days Qty: 90 1RF magnesium oxide 400 mg magnesium capsule 400 mg PO BEDTIME 90 Days Qty: 90 2RF lidocaine 5 % adhesive patch,medicated 1 patch topical DAILY 30 Days Qty: 30 3RF Rx Instructions: leave on most painful area for up to 12 hrs alendronate [Fosamax] 70 mg tablet 70 mg PO QWEEK 84 Days Qty: 12 1RF baclofen 10 mg tablet 20 mg PO BEDTIME 90 Days Qty: 180 1RF (DME) EXERCISE BIKE See Rx Instructions .Route .MEDSUPPLY Qty: 1 0RF Rx Instructions: As directed (DME) bed pads See Rx Instructions .Route .MEDSUPPLY Qty: 120 11RF Rx Instructions: As directed (DME) Soft TLSO with shoulder straps See Rx Instructions .Route .MEDSUPPLY Qty: 1 0RF Rx Instructions: As directed epinephrine [EpiPen 2-Kamaljit] 0.3 mg/0.3 mL auto-injector 0.3 mg IM ONCE PRN (Reason: anaphylaxis) 30 Days Qty: 2 0RF (DME) Ultra-Light Rollator Misc See Rx Instructions .Route Qty: 1 0RF Rx Instructions: As directed (DME) Knee Support Brace Misc See Rx Instructions .Route Qty: 1 0RF Rx Instructions: Need for visual merchandiser left knee brace with medial support montelukast 10 mg tablet 10 mg PO DAILY 90 Days Qty: 90 1RF (DME) adult pullups medium See Rx Instructions .Route .MEDSUPPLY Qty: 300 11RF Rx Instructions: As directed acetaminophen [Tylenol Arthritis Pain] 650 mg tablet extended release 650 mg PO Q12H 30 Days Qty: 60 2RF omeprazole 20 mg capsule,delayed release(DR/EC) 20 mg PO DAILY 90 Days Qty: 90 0RF (DME) Left wrist splint See Rx Instructions .Route .MEDSUPPLY Qty: 1 0RF Rx Instructions: As directed gabapentin 400 mg capsule 400 mg PO DAILY 30 Days Qty: 30 3RF oxybutynin chloride 15 mg tablet extended release 24hr 15 mg PO DAILY 90 Days Qty: 90 3RF Eliquis 5 mg tablet 5 mg PO BID 90 Days Qty: 180 3RF diclofenac sodium 1 % gel 4 g topical QID 30 Days Qty: 100 3RF Rx Instructions: apply to single elbow, wrist or hand; for hand includes palm/fingers/back of hand primidone 50 mg tablet 100 mg PO TID MDD 600mg 90 Days Qty: 540 0RF Rx Instructions: take 2 -50mg tablets by mouth TID for seizure disorder betamethasone dipropionate 0.05 % cream 1 appl topical DAILY PRN (Reason: skin irritation) 28 Days Qty: 45 0RF loperamide 2 mg capsule 2 mg PO Q8H PRN (Reason: loose stool) 7 Days Qty: 21 1RF clonazepam 1 mg tablet 0.5 mg PO BID (DME) compr.stocking,knee,long,large Misc See Rx Instructions .Route Qty: 2 0RF Rx Instructions: As directed zolpidem 10 mg tablet 5 mg PO BEDTIME albuterol sulfate [Ventolin HFA] 90 mcg/actuation HFA aerosol inhaler 2 puff inhalation QID PRN (Reason: shortness of breath or wheezing) 30 Days Qty: 18 11RF desvenlafaxine succinate 50 mg tablet extended release 24 hr 50 mg PO DAILY (DME) humidifiers [Cool Mist Humidifier] Misc See Rx Instructions .Route Qty: 1 0RF Rx Instructions: As directed topiramate 200 mg tablet 200 mg PO BID 90 Days Qty: 180 1RF Print Language: Romansh
--- NOTE | 2025-06-06 17:23 | ECG_ITS ---
Test Reason : BACK PAIN Blood Pressure : */* mmHG Vent. Rate : 58 BPM Atrial Rate : 58 BPM P-R Int : 190 ms QRS Dur : 78 ms QT Int : 408 ms P-R-T Axes : 40 18 33 degrees QTcB Int : 400 ms Sinus bradycardia Otherwise normal ECG When compared with ECG of 25-Mar-2025 16:57, No significant change was found Referred By: Delma Saldana Electronically Signed By: Francisco Alvares
[2025-06-06] MEDS: oxyCODONE HCl Immed Release 5 MG TABLET PO (18:02)
[2025-06-06 19:37] LABS: MANUAL DIFF FLAG NO
[2025-06-06 19:52] LABS: Alanine Aminotransferase 23 U/L (0-31); Albumin Level 4.2 g/dL (3.5-5.0); Alkaline Phosphatase 80 U/L (39-117); Anion Gap 14 (12-20); Aspartate Amino Transferase 21 U/L (5-31); Blood Urea Nitrogen 13 mg/dL (9-16); Calcium 8.8 mg/dL (8.4-10.2); Carbon Dioxide 23 mmol/L (22-29); Chloride 101 mmol/L (96-108); Creatinine Clr Calc Pharmacy 46.0; Estimated Glomerular Filt Rate 44; Potassium 4.5 mmol/L (3.3-5.1); Sodium 133 mmol/L (135-145); Total Protein 6.7 g/dL (6.5-8.0)
[2025-06-06 20:00] LABS: Troponin-I High Sensitivity < 2.7 ng/L (<3.5-17.0)
[2025-06-06 20:28] LABS: Hematocrit 32.4 % (37.0-47.0); Hemoglobin 11.2 g/dl (12.0-16.0); Imm Gran Abs Auto 0.02 X10*3/uL (0.00-0.03); Imm Gran Pct Auto 0.3 % (0.0-0.4); Lymphocytes Absolute Auto 2.3 X10*3/uL (1.2-4.9); Mean Corpuscular HGB Conc 34.6 g/dl (31.0-35.0); Mean Corpuscular Hemoglobin 33.1 pg (27.0-33.0); Mean Corpuscular Volume 95.9 fL (80.0-98.0); NRBC Abs Auto 0.000 X10*3/uL (0.0-0.012); NRBC Pct Auto 0.0 /100WBC (0.0-0.2); Platelet Count 239 X10*3/uL (160-400); Red Blood Count 3.38 X10*6/uL (4.20-5.50); White Blood Count 6.7 X10*3/uL (4.8-10.8)
[2025-06-06 20:58] VITALS: BP 172/76; PULSE 71; RESP 20; TEMP 36; O2SAT 96
== END 2025-06-06 20:59 | disposition home or self-care (01) ==
PROVIDERS: Nurse Practitioner Family; Emergency Provider Emergency Medicine
DX: S22.32XA Fracture of one rib, left side, initial encounter for closed fracture (principal); M54.50 Low back pain, unspecified; R07.89 Other chest pain; R00.1 Bradycardia, unspecified; F17.210 Nicotine dependence, cigarettes, uncomplicated; X58.XXXA Exposure to other specified factors, initial encounter; Y93.9 Activity, unspecified; Y92.9 Unspecified place or not applicable; Y99.8 Other external cause status; Z79.899 Other long term (current) drug therapy; Z79.01 Long term (current) use of anticoagulants; Z86.718 Personal history of other venous thrombosis and embolism
CPT/HCPCS: 36415; 71250; 80053; 84484; 85025; 93005; 99285

== ENCOUNTER → 2025-06-06 17:13 | Outpatient (BNV) | payer OTHER, SELFPAY | PROVIDERS: Emergency Provider Emergency Medicine; Visit Provider Specialist | DX: J98.11 Atelectasis (principal) | CPT/HCPCS: 71250 ==

== ENCOUNTER → 2025-06-06 17:23 | Outpatient (BNV) | payer OTHER, SELFPAY | PROVIDERS: Emergency Provider Emergency Medicine; Visit Provider Internal Medicine Cardiovascular Disease | DX: R00.1 Bradycardia, unspecified (principal) | CPT/HCPCS: 93010 ==

== ENCOUNTER 2025-06-08 08:59 | Outpatient (AMB) | payer OTHER, SELFPAY ==
--- NOTE | 2025-06-08 09:06 | MHC.PC.OV ---
Vital Signs 06/08/25 09:07 Height 5 ft 2 in Weight 189 lb BMI 34.6 BP 142/70 H Blood Pressure Location Lt brachial Position Sitting Pulse 75 Pulse Source Pulse Oximeter Temp 97.3 F Temp Source Temporal Artery Scan Pulse Oximetry (%) 98 Oxygen Delivery Method Room Air Intake Visit Reasons: [facility] 06/06 low back pain Intake Note: Patient is here to follow-up after a visit the emergency department at [facility] on 06/06/25 Safety And Skill Based Pay Manager Required: No Security Police Officer: Not Required per policy Accompanied by: Self / Same As Patient Allergies cat dander (CATS) Allergy (Mild, Verified 06/08/25 09:34) HAYFEVER Chocolate Allergy (Mild, Verified 06/08/25 09:34) HEADACHES dog dander (DOGS) Allergy (Mild, Verified 06/08/25 09:34) HAYFEVER Environmental Allergy (Mild, Uncoded 06/08/25 09:34) HAYFEVER yellow jackets Allergy (Uncoded 06/08/25 09:34) Anaphylaxis Medication List - Last Reconciled 06/08/25 by Sudhir Martin PA-C acetaminophen ER (Tylenol Arthritis Pain) 650 mg PO Q12H 30 days [adult pullups As directed] albuterol sulfate 90 mcg/actuation (Ventolin HFA) 2 puffs inhalation QID PRN 30 days alendronate (Fosamax) 70 mg PO QWEEK 12 weeks apixaban (Eliquis) 5 mg PO BID 90 days B complex with C 20-folic acid 1 mg (Wescaps) 1 cap PO DAILY 90 days back brace As directed baclofen 20 mg (2 x 10 mg) PO BEDTIME 90 days [bed pads As directed] betamethasone dipropionate 0.05% 1 appl topical DAILY PRN 4 weeks cane As directed cholecalciferol (vitamin D3) 50 mcg PO DAILY 90 days clonazepam 0.5 mg PO BID compr.stocking,knee,long,large As directed desvenlafaxine succinate ER 50 mg PO DAILY diaper,brief,adult,disposable As directed diclofenac sodium 1% 4 grams topical QID 30 days diphenhydramine HCl (Banophen) 25 mg PO Q8H 90 days [disposable face masks As directed] disposable gloves As directed epinephrine (EpiPen 2-Kamaljit) 0.3 mg (0.3 mL) IM ONCE PRN 30 days [EXERCISE BIKE As directed] fluticasone furoate-vilanterol 200-25 mcg/dose (Breo Ellipta) 1 inh inhalation DAILY 30 days vwtneygzxjj-ylmggquom-ryfpwhix 200-62.5-25 mcg (Trelegy Ellipta) 1 inh inhalation DAILY 30 days folic acid 1 mg PO DAILY 90 days furosemide 20 mg PO DAILY 90 days gabapentin 400 mg PO DAILY 30 days humidifiers (Cool Mist Humidifier) As directed incontinence pad, liner, disp As directed [Left wrist splint As directed] leg brace (Knee Support Brace) Need for measurement operator left knee brace with medial support lidocaine 5% 1 patch topical DAILY 30 days loperamide 2 mg PO Q8H PRN 7 days magnesium oxide 400 mg PO BEDTIME 90 days miscellaneous medical supply 1 ea miscellaneous DAILY 99 days montelukast 10 mg PO DAILY 90 days omeprazole 20 mg PO DAILY 90 days oxybutynin chloride ER 15 mg PO DAILY 90 days primidone 100 mg (2 x 50 mg) PO TID 3 months MDD 600mg [round raised toilet seat As directed] [soft neck brace As directed] [Soft TLSO with shoulder straps As directed] topiramate 200 mg PO BID 90 days walker (Ultra-Light Rollator misc) As directed zolpidem 5 mg PO BEDTIME Tobacco use date assessed: 06/08/25 Fall risk assessment: 1 Fall in past year Last assessed Fall Risk: 06/08/25 Dental Screening Dental Screen Date: 01/05/25 [facility] 06/06 low back pain HPI Details Patient is a 64-year-old female here today for an ER follow up ? Patient has a past medical history significant for polysubstance abuse, spinal stenosis, anxiety, depression, pernicous anemia, DVT ( left leg), parkinsons.? Patient presents to the [facility] with reports of a mechanical fall. She reports walking with a cane and tripped and fell landing into a seated position on the floor injuring her buttocks and struck her back on the couch. She did receive x-rays and did note two fractured ribs. Recently lumbar MRI-- >Minimal to mild disc bulges at L1-2, L3-4 and L4-5. She reports she has gotten injections in her lower lumbar spine that have not been effective. She is interested in his seeing a neurosurgeon for evaluation for possible surgery as she continues to have lower back pain that radiates down into her left lower extremity causing weakness in her more frequent falls. [facility] Medical History Vitamin B12 deficiency Hx of deep venous thrombosis Microcytic anemia COPD with emphysema Prerenal azotemia Toxic metabolic encephalopathy Transaminitis Allergies Chronic allergic rhinitis Asthma-COPD overlap syndrome COPD exacerbation COVID-19 History of abnormal cervical Pap smear Spinal stenosis, cervical region Peripheral polyneuropathy Spondylosis of cervical spine Spondylosis of lumbar spine Cocaine abuse Alcohol abuse Hepatitis Heart murmur History of cocaine abuse History of heroin abuse Hydradenitis Former cigarette smoker Recovering alcoholic GERD (gastroesophageal reflux disease) Lumbago with sciatica, left side Arthritis Back pain On anticoagulant therapy DVT (deep venous thrombosis) History of celiac disease Anxiety Panic attacks Depression PTSD (post-traumatic stress disorder) Parkinson disease History of frequent headaches Seizure Asthma Surgical History H/O excision of ganglion cyst Hx of esophagogastroduodenoscopy History of carpal tunnel surgery of left wrist Hx of nasal septoplasty History of hemorrhoidectomy Hx of colonoscopy Family History Mother No problems noted. Social History Housing: Apartment Are you a primary childcare teacher to a significant other at home: No Do you presently have visiting nurse or other home services: Yes Alcohol intake: former Year quit: 2003 Comment: was seen at [facility]-called for note Patient Tobacco Use Status: Current everyday Tobacco user Tobacco use type: Cigarette Cigarette Packs Per Day: 1 Cigarettes Per Day: 20 Years Smoked: 45 e-Cigarette/Vaping Use: Former Use Second Hand Smoke Exposure: Yes service: No Current occupational status: disabled Cognitive needs: Yes (back brace) Hearing needs: No Vision needs: Yes Questionnaire Thrive Questionnaire Date Thrive assessed: 04/08/25 I am a: Patient What is your living situation today?: I have a steady place to live Within the past 12 months, did the food you bought not last and you didn't have the money to get more?: Never true Within the past 12 months, did you worry whether your food would run out before you got money to buy more?: Never true Do you have trouble paying for medicines?: No Do you have trouble getting transportation to medical appointments?: No Do you have trouble paying your heating and electricity bill?: No Do you have trouble taking care of your child, family member or friend?: No Do you have trouble with day-to-day activities such as bathing, preparing meals, shopping, managing finances, etc.?: Yes Are you currently unemployed and looking for a job?: No Are you interested in more education?: Yes Please select the resources that you would like help with: None Currently or been in a relationship where the following occur: No concerns reported THRIVE Score: 0 LUISA-7 AMB Questionnaire LUISA-7 Date LUISA - 7 assessed: 01/05/25 Source: Developed by Drs. Boris Garcia, Qian Bullard, Hector Herzog and colleagues, with an educational miguel a from [employer]. Review of Systems Const Denies headache(s) Eyes Denies loss of vision ENT Denies vertigo, Denies dizziness, Denies headache(s) and Denies sore throat Card Denies chest pain, Denies leg edema and Denies lightheadedness Resp Denies cough, Denies hemoptysis and Denies wheezing GI Denies abdominal pain, Denies melena, Denies constipation, Denies diarrhea and Denies vomiting Denies urinary frequency, Denies dysuria and Denies urinary urgency Musc Denies arthralgias, Denies joint swelling, Denies numbness and Denies tingling Neuro Denies Abnormal speech present, Denies behavioral changes, Denies vertigo, Denies dizziness, Denies headache(s), Denies loss of vision, Denies memory loss, Denies numbness and Denies tingling Psych Denies anxiety, Denies behavioral changes, Denies depression, Denies memory loss and Denies panic attacks Carlos/Lymph Denies easy bleeding and Denies easy bruising Aller/Immun Denies wheezing Physical exam (Primary Care) Vital Signs: Last Vital Signs Temp 97.3 F 06/08/25 09:07 Pulse 75 06/08/25 09:07 BP 142/70 H 06/08/25 09:07 Pulse Ox 98 06/08/25 09:07 Oxygen Delivery Method Room Air 06/08/25 09:07 BMI result Body Mass Index 34.6 Tobacco/Smoking Status: Tobacco use Status Tobacco use date assessed 06/08/25 06/08/25 09:23 Patient Tobacco Use Status Current everyday Tobacco 06/08/25 09:22 Tobacco use type Cigarette 06/08/25 09:22 e-Cigarette/Vaping Use Former Use 06/08/25 09:22 Thrive Assessment: Date of Thrive Assessment Date Thrive assessed 04/08/25 06/08/25 09:07 Currently or been in a relationship where the following occur: No concerns reported Const General: healthy appearing, no acute distress, alert and awake Nutritional Appearance: well nourished Orientation/consciousness: oriented to person, oriented to place and oriented to time HENMT Ears: TM's normal bilaterally General nose exam: Normal nasal mucous membranes and turbinates present Eyes Conjunctivae: conjunctivae normal Sclerae: sclerae normal Pupils: Equal, round and reactive pupils present Neck Neck: Yes no lymphadenopathy and Yes no JVD Thyroid: Thyroid normal Carotids: no bruits Resp Effort & Inspection: normal respiratory effort and not tachypneic Auscultation: no crackles, no rales, no rhonchi and no wheezes Cardio Rate: regular rate Rhythm: regular rhythm Heart sounds: no murmurs and normal S1 and S2 GI Palpation (GI): Soft to palpation, nontender, no hepatomegaly and no splenomegaly Auscultation: normal bowel sounds Back/Spine/Pelvis Other: LIMITED RANGE OF MOTION OF LUMBAR SPINE DUE TO PAIN STIFFNESS, USING A CANE FOR AMBULATION ASSISTANCE Skin General skin exam: no rashes or lesions noted and dry skin Neuro General: oriented to person, oriented to place and oriented to time Cranial nerves: Yes Equal, round and reactive pupils present Speech: No Abnormal speech present Gait exam (Neuro): Normal gait present Motor exam (neuro): no tremor noted Extrem Right upper extremity: full ROM Left upper extremity: full ROM Right lower extremity: full ROM; no edema Left lower extremity: full ROM; no edema Psych Mental Status: mental status grossly normal Speech and movement: Normal speech and movement present Affect: normal affect Attitude: cooperative Thought process: Normal thought process present Coding Level of Care Code Est Pt Level 4 (16542) Diagnoses Lumbar radiculopathy, acute M54.16 Assessment & Plan Assessment & Plan (1) Lumbar radiculopathy, acute: Code(s): M54.16 - Radiculopathy, lumbar region Category: Medical Plan: The patient experiences lower back pain exacerbated by the fall, with MRI showing minimal bulging at L1-L5 without nerve impingement. The patient is under pain management care but is reluctant to receive corticosteroid injections. Take prescribed oxycodone as directed for rib fracture and acute on chronic pain, being cautious of its addictive nature. Orders: Orders XR lumbar spine 4V min Today M54.16 - Radiculopathy, lumbar region Referrals Orthopedics Referral M54.16 - Radiculopathy, lumbar region Medications: New oxycodone Partial Fill upon patient request. 5 mg PO DAILY 7 tabs 0RF pain 7 days M54.16 - Radiculopathy, lumbar region
[2025-06-08 09:07] VITALS: BP 142/70; PULSE 75; TEMP 36.3; O2SAT 98; BMI 34.6
--- OUTSIDE RECORDS SUMMARY | 2025-06-08 09:27 | XMS_ITS | Patient Health Record ---
Author Organization [facility] Address [address] [place] [address] Care Team Providers Care Shell Molder Name Role Phone Chidi Reyes M.D. Primary Care Provider Un available Boris Quinones Unavailable [phone] Allergies Allergen (clinical drug ingredient) Drug/Non Drug [...] Problem Status W/U Status Risk Notes Problem 526222600 Encounter for screening for malignant neoplasm of colon (Z12.11) Active confirmed Problem 866720283 History of adenomatous polyp of colon (Z86.010) Active confirmed Problem 20749765 Diarrhea (R19.7) Active confirmed Problem 77856191 Weight loss (R63.4) Active confirmed Problem 348792367 Celiac disease (K90.0) Active confirmed Problem 16578914 Constipation, unspecified constipation type (K59.00) Active confirmed Problem 622097855 Positive autoantibody screening for celiac disease (R76.8) Active confirmed Problem 15942998 Diarrhea, unspecified type (R19.7) Active confirmed Plan [...] Start Date Coverage End Date [facility] [address] [place] [phone] [id number] LIVIERGenaPARDEEP Self - patient is the insured Medical (General) History Medical History History ICD Code COPD/asthma Denies NV,DM,CVA,renal disease C.difficile in 2008--negative stool spec imens [...]
== END 2025-06-08 09:53 | disposition home or self-care (01) ==
LOC: HO.HMCH 08:59
PROVIDERS: PCP Physician Assistant; Visit Provider Physician Assistant
DX: M54.16 Radiculopathy, lumbar region (principal)

== ENCOUNTER → 2025-06-08 08:59 | Outpatient (BNVA) | payer OTHER, SELFPAY | PROVIDERS: PCP Physician Assistant; Visit Provider Physician Assistant | DX: M54.16 Radiculopathy, lumbar region (principal); G20.A1 Parkinson's disease without dyskinesia, without mention of fluctuations; Z86.718 Personal history of other venous thrombosis and embolism; Z91.81 History of falling | CPT/HCPCS: 99212 ==

== ENCOUNTER 2025-06-21 08:13 | Outpatient (REF) | payer OTHER, SELFPAY ==
[2025-06-21 11:13] LABS: Hematocrit 29.9 % (37.0-47.0); Hemoglobin 10.6 g/dl (12.0-16.0); Mean Corpuscular HGB Conc 35.5 g/dl (31.0-35.0); Mean Corpuscular Hemoglobin 33.0 pg (27.0-33.0); Mean Corpuscular Volume 93.1 fL (80.0-98.0); NRBC Abs Auto 0.000 X10*3/uL (0.0-0.012); NRBC Pct Auto 0.0 /100WBC (0.0-0.2); Platelet Count 202 X10*3/uL (160-400); Red Blood Count 3.21 X10*6/uL (4.20-5.50); White Blood Count 6.2 X10*3/uL (4.8-10.8)
[2025-06-21 11:42] LABS: Alanine Aminotransferase 15 U/L (0-31); Albumin Level 4.0 g/dL (3.5-5.0); Alkaline Phosphatase 83 U/L (39-117); Anion Gap 10 (12-20); Aspartate Amino Transferase 22 U/L (5-31); Blood Urea Nitrogen 18 mg/dL (9-16); Calcium 8.4 mg/dL (8.4-10.2); Carbon Dioxide 24 mmol/L (22-29); Chloride 92 mmol/L (96-108); Cholesterol 155 mg/dL (<200); Estimated Glomerular Filt Rate 46; HDL Cholesterol 32 mg/dL (>40); Iron 80 mcg/dL (30-160); Percent Iron Saturation 39 % (15-50); Potassium 4.0 mmol/L (3.3-5.1); Sodium 122 mmol/L (135-145); Total Iron Binding Capacity 204 mcg/dL (228-428); Total Protein 6.7 g/dL (6.5-8.0); Triglycerides 89 mg/dL (<150); Unsaturated Iron Binding 124 ug/dL
[2025-06-21 12:15] LABS: Folate > 20.0 ng/mL (> or = 4.0); Vitamin B12 347 pg/mL (200-900)
== END 2025-06-21 08:14 | disposition home or self-care (01) ==
LOC: HO.LAB 08:13
PROVIDERS: PCP Physician Assistant; Visit Provider Physician Assistant
DX: J44.9 Chronic obstructive pulmonary disease, unspecified (principal); J44.89 Other specified chronic obstructive pulmonary disease; J45.909 Unspecified asthma, uncomplicated; T78.40XA Allergy, unspecified, initial encounter; I10 Essential (primary) hypertension; E53.8 Deficiency of other specified B group vitamins; D50.9 Iron deficiency anemia, unspecified; M79.89 Other specified soft tissue disorders; F17.210 Nicotine dependence, cigarettes, uncomplicated
CPT/HCPCS: 36415; 80053; 80061; 82043; 82570; 82607; 82746; 83540; 85027; 99212

== ENCOUNTER 2025-06-21 10:59 | Outpatient (AMB) | payer OTHER, SELFPAY ==
--- NOTE | 2025-06-21 11:02 | A.OFFVIS_ITS ---
Vital Signs 06/21/25 11:09 Height 5 ft 2 in Weight 189 lb BMI 34.6 BP 111/62 Pulse 59 Pulse Source Pulse Oximeter Pulse Oximetry (%) 96 Oxygen Delivery Method Room Air Intake Visit Reasons: COPD Allergies cat dander (CATS) Allergy (Mild, Verified 06/21/25 11:12) HAYFEVER Chocolate Allergy (Mild, Verified 06/21/25 11:12) HEADACHES dog dander (DOGS) Allergy (Mild, Verified 06/21/25 11:12) HAYFEVER Environmental Allergy (Mild, Uncoded 06/08/25 09:34) HAYFEVER yellow jackets Allergy (Uncoded 06/08/25 09:34) Anaphylaxis HPI Comments Details: The patient is a 64 year woman who has an active smoker and also history of substance abuse presenting with a history of asthma worsening symptoms. The patient states that she does have significant allergies and she has had allergy shots for many years. But then her doctor stopped covering her insurance and therefore she was not able to get allergy shots. She is felt that her respiratory symptoms have gotten worse. She has had more chest tightness and wheezing. She does have an Advair HFA inhaler although she thought that was inhaler for rescue. And also still not feeling well overall. The patient unfortunately continues to smoke cigarettes. She has been able to cut down significantly down to 1 pack lasting 3-4 days. She has been smoking for about 40 years and the patient does qualify for the lung cancer screening program. We did talk about it but at this point the patient is calorie reluctant and therefore will further discuss it during next visit. The patient also significant nasal congestion. She does use Sudafed [id number]-ktuligz. In addition to that has been using nasal sprays. The patient has not been using Afrin per the patient's report. Indeed the patient likely has significant allergies and would potentially benefit from biologic therapy in the near future. For now though will try to optimize respiratory therapy and also her nasal therapy. The patient will have a chest x-ray and PFTs and be evaluated after that. I which point will talk about the lung cancer screening program and we will consider biologic therapy if she has not made it to an finisher cold rolling. 07/07/2024 the patient is here for pulmonary follow-up visit. Overall the patient is doing okay from a respiratory status. She did respond well to the Trelegy inhaler. She did have an injury where she fell and she her neck. Now she is dealing with those issues. Unfortunately she has not been able to quit smoking. We did talk about the importance of doing so since her respiratory symptoms are significant. She is also dealing with nasal congestion and nasal polyps. She is using nasal sprays. Initially we have recommended Sudafed but now she is having issues with blood pressure sure she can hold off on Sudafed at this time. The patient was supposed have a chest x-ray and PFTs. Although we had to reschedule. She is going to have a chest x-ray today and shot PFTs prior to next visit. We also had talked about the lung cancer screening program during the last visit. Will go ahead and discuss that further during her follow-up visit. 06/21/2025 the patient is here for a pulmonary follow-up visit. She is a little bit sleepy this morning she is falling asleep during the visit. She states this morning on 05:00 the morning she went to smoke cigarettes and she fell. There was bystander that was able to help her. She continues to smoke cigarettes since she is not ready to quit. We did talk about smoking cessation in the past and also currently and she is not ready at this time. The patient did have a CT scan of the chest. I did review it demonstrating some areas of atelectasis and also some potential airspace disease at the bases. Will start her on doxycycline. If she is not mentating well she is at risk for micro aspirations into the lungs. Therefore she will start doxycycline. As far as her inhaler seems that she is taking Breo and Incruse will continue those for now she has a rescue medication. Will plan to follow-up sometime in the springtime. However, if he develops any further mental status issues she needs to be further evaluated for that. [facility] Medical History Vitamin B12 deficiency Hx of deep venous thrombosis Microcytic anemia COPD with emphysema Prerenal azotemia Toxic metabolic encephalopathy Transaminitis Allergies Chronic allergic rhinitis Asthma-COPD overlap syndrome COPD exacerbation COVID-19 History of abnormal cervical Pap smear Spinal stenosis, cervical region Peripheral polyneuropathy Spondylosis of cervical spine Spondylosis of lumbar spine Cocaine abuse Alcohol abuse Hepatitis Heart murmur History of cocaine abuse History of heroin abuse Hydradenitis Former cigarette smoker Recovering alcoholic GERD (gastroesophageal reflux disease) Lumbago with sciatica, left side Arthritis Back pain On anticoagulant therapy DVT (deep venous thrombosis) History of celiac disease Anxiety Panic attacks Depression PTSD (post-traumatic stress disorder) Parkinson disease History of frequent headaches Seizure Asthma Surgical History H/O excision of ganglion cyst Hx of esophagogastroduodenoscopy History of carpal tunnel surgery of left wrist Hx of nasal septoplasty History of hemorrhoidectomy Hx of colonoscopy Family History Mother No problems noted. Social History Housing: Apartment Are you a primary care assistant to a significant other at home: No Do you presently have visiting nurse or other home services: Yes Alcohol intake: former Year quit: 2003 Comment: was seen at [facility]-called for note Patient Tobacco Use Status: Current everyday Tobacco user Tobacco use type: Cigarette Cigarette Packs Per Day: 1 Cigarettes Per Day: 20 Years Smoked: 45 e-Cigarette/Vaping Use: Former Use Second Hand Smoke Exposure: Yes service: No Current occupational status: disabled Cognitive needs: Yes (back brace) Hearing needs: No Vision needs: Yes Review of Systems Const Reports daytime sleepiness, Reports fatigue and Denies fever(s) ENT Reports nasal congestion and Reports nasal discharge Card Denies chest pain Resp Reports cough and Reports wheezing GI Reports no additional complaints Musc Reports no additional complaints Skin/Breast Denies rash Neuro Reports no additional complaints Endo Reports fatigue Carlos/Lymph Denies lymphadenopathy Aller/Immun Reports wheezing Physical Exam Vital Signs: Last Vital Signs Pulse 59 06/21/25 11:09 BP 111/62 06/21/25 11:09 Pulse Ox 96 06/21/25 11:09 Oxygen Delivery Method Room Air 06/21/25 11:09 BMI result Body Mass Index 34.6 Const General: tired appearing Limitations: ambulation with cane and wheelchair HEENT Head: Yes normocephalic General nose exam: Abnormal mucous membranes and turbinates present erythematous Neck Neck: Yes supple Chest Chest palpation & inspection: normal inspection of the chest Resp Effort & Inspection: normal respiratory effort Auscultation: diminished lung sounds Cardio Heart sounds: S1 normal heart sound present and S2 normal heart sound present GI Palpation (GI): Soft to palpation Skin General skin exam: no rashes or lesions noted Extrem General: Yes no clubbing, cyanosis or edema Assessment & Plan Assessment & Plan (1) Asthma-COPD overlap syndrome: Code(s): J44.89 - Other specified chronic obstructive pulmonary disease Category: Medical (2) Chronic allergic rhinitis: Code(s): J30.9 - Allergic rhinitis, unspecified Category: Medical (3) Allergies: Code(s): T78.40XA - Allergy, unspecified, initial encounter Category: Medical Qualifiers: Encounter type: initial encounter Qualified Code(s): T78.40XA - Allergy, unspecified, initial encounter Plan continue Trelegy EDITA as needed Consider LDCT start Doxycycline Tobacco cessation repeat CXR F/U 4-6 months Orders: Orders XR chest 2V Today Cyril Morales MD J44.89 - Other specified chronic obstructive pulmonary disease Medications: New doxycycline hyclate 100 mg PO BID 20 caps 0RF 10 days Cyril Morales MD On Hold furosemide Hold Comment: Doctor's Order 20 mg PO DAILY 90 days 90 tabs 0RF Sudhir Martin PA-C M79.89 - Other specified soft tissue disorders Coding Level of Care Code Est Pt Level 4 (84919) Complex EM visit Add On G2211 Diagnoses Asthma-COPD overlap syndrome J44.89 Chronic allergic rhinitis J30.9 Allergy, initial encounter T78.40XA Encounter type: initial encounter Time Spent (min) 16
[2025-06-21 11:09] VITALS: BP 111/62; PULSE 59; O2SAT 96; BMI 34.6
== END 2025-06-21 11:31 | disposition home or self-care (01) ==
LOC: HO.HPS 11:00
PROVIDERS: PCP Physician Assistant; Visit Provider Hospitalist
DX: J44.89 Other specified chronic obstructive pulmonary disease (principal); J30.9 Allergic rhinitis, unspecified; T78.40XA Allergy, unspecified, initial encounter
CPT/HCPCS: 99214

== ENCOUNTER 2025-06-25 11:27 | Outpatient (REF) | payer OTHER, SELFPAY ==
--- OUTSIDE RECORDS SUMMARY | 2025-06-25 11:30 | XMS_ITS | Patient Health Record ---
Author Organization [facility] Address [address] [place] [address] Care Team Providers Care Generalist Name Role Phone Sudhir Martin Primary Care Provider Boris Whitmore Unavailable [phone] Allergies Allergen (clinical drug ingredient) Drug/Non Drug [...] Date Status MiraLax (colon prep) 8.3 ounce (238) grams mixed with Gatorade or Crystal Light [...] many cigarettes a day do you smoke? 11 Section Notes: Smoker 5 cigs QD; alcohol [...] Problem Status W/U Status Risk Notes Problem [id number] Encounter for screening for malignant neoplasm of colon (Z12.11) Active confirmed Problem 083292651 History of adenomatous polyp of colon (Z86.010) Active confirmed Problem 38305274 Diarrhea (R19.7) Active confirmed Problem 29794908 Weight loss (R63.4) Active confirmed Problem 004791096 Celiac disease (K90.0) Active confirmed Problem 09312429 Constipation, unspecified constipation type (K59.00) Active confirmed Problem 395645473 Positive autoantibody screening for celiac disease (R76.8) Active confirmed Problem 73801342 Diarrhea, unspecified type (R19.7) Active confirmed Plan [...] 10/05/2015 UPPER GI ENDOSCOPY 07/14/2020 COLONOSCOPY 07/14/2020 Next Appt Details Provider Name:Boris Kimbrough Joni , 11/02/2025 09:30:00 AM, [address] [place] [address], [address], [place], [address], Insurance Providers Payer Name Payer Address Payer Phone Subscriber Number Group Number Insured Name Patient Relationship to Insured Coverage Start Date Coverage End Date [facility] [address] [address] [place], [place] [id number] PARDEEP SENIOR Self - patient is the insured Medical (General) History Medical History History ICD Code COPD/asthma Denies [place],DM,CVA,renal disease C.difficile in 2008--negative stool spec imens [...]
[2025-06-25 12:19] LABS: Hematocrit 35.5 % (37.0-47.0); Hemoglobin 11.9 g/dl (12.0-16.0); Mean Corpuscular HGB Conc 33.5 g/dl (31.0-35.0); Mean Corpuscular Hemoglobin 32.2 pg (27.0-33.0); Mean Corpuscular Volume 95.9 fL (80.0-98.0); NRBC Abs Auto 0.000 X10*3/uL (0.0-0.012); NRBC Pct Auto 0.0 /100WBC (0.0-0.2); Platelet Count 249 X10*3/uL (160-400); Red Blood Count 3.70 X10*6/uL (4.20-5.50); White Blood Count 7.7 X10*3/uL (4.8-10.8)
[2025-06-25 12:22] LABS: Sodium 137 mmol/L (135-145)
== END 2025-06-25 11:28 | disposition home or self-care (01) ==
LOC: HO.LAB 11:27
PROVIDERS: PCP Physician Assistant; Visit Provider Physician Assistant
DX: I10 Essential (primary) hypertension (principal); E87.1 Hypo-osmolality and hyponatremia
CPT/HCPCS: 36415; 84295; 85027

== ENCOUNTER 2025-07-05 14:24 | Emergency (ER) | payer OTHER, SELFPAY ==
--- NOTE | ~2025-07-05 | XR_ITS ---
EXAMINATION: XR LUMBOSACRAL SPINE CLINICAL INFORMATION: falls acute on chronic back pain COMPARISON: March 25, 2025 TECHNIQUE: AP and lateral views FINDINGS: Facet joint hypertrophy at L5-S1. Mild multilevel endplate sclerosis and small marginal osteophyte formation. No acute cortical disruption. No gross malalignment. No lytic or blastic lesions. Vascular complications, aorta. XR/XR lumbar spine 2-3V IMPRESSION: Spondylosis L5-S1. Stable. Electronically signed by: Shaw Courtney MD 07/05/2025 03:15 PM EDT
--- NOTE | ~2025-07-05 | CT_ITS ---
Examination: CT brain and CT cervical spine without contrast. CLINICAL INDICATION: Multiple falls. COMPARISON: CT brain 04/06/2025. TECHNIQUE: 5 mm thin axial and reformatted 2 mm thin sagittal and coronal images of brain were obtained. Subsequently axial 3 mm thin and reformatted 2 1 mm thin sagittal and coronal images of cervical spine were obtained. Subsequently axial 3 mm thin and reformatted 2 mm thin sagittal and coronal images of cervical spine were obtained. DLP [address] examination was performed using dose optimization techniques as appropriate, variously including the following: *Automated exposure control *Adjustment of mA and/or kV according to patient size (this includes techniques or standardized protocols for targeted exams where dose is matched to indication/reason for exam; i.e. extremities or head) *Use of iterative reconstruction technique. FINDINGS: Brain: There is no acute intra-axial, extra-axial bleed, masses or midline shift. There is no acute infarction evolution. There is no edema. The carter to white matter differentiation is maintained normal. The lateral ventricles are symmetrical in size and configuration without enlargement. Bone windows reveal no calvarial abnormality. There is no scalp soft tissue abnormality. There is mild mucoperiosteal thickening bilateral frontal, ethmoid, maxillary and sphenoid sinuses. The scalp soft tissues are normal. Cervical spine: There is mild straightening of cervical lordosis. The vertebral heights and alignment is normal. There is mild loss of C5-6, C6/7 disc heights with mild ventral and posterior spondylosis C4-5, C5-6 and C6 testis 7 disc levels. The craniovertebral junction and the C1-C2 alignment is normal. No visible acute fracture, dislocation or subluxation seen. The prevertebral and paravertebral soft tissues are normal. The airway is widely patent. The lung apices are clear. A dominant right jugular vein is noted. Thyroid lobes are symmetrical and normal. CT/CT cervical spine wo IV con IMPRESSION: No acute intracranial process seen. Chronic pansinusitis. Mildly degenerative disc changes cervical spine as described above. No visible acute fracture, dislocation or subluxation seen. Electronically signed by: Tru Harmon MD 07/05/2025 04:13 PM EDT
[2025-07-05 14:29] VITALS: BP 161/76; PULSE 88; RESP 16; TEMP 37; O2SAT 99; BMI 36.2
--- NOTE | 2025-07-05 14:42 | ED_ITS ---
HPI - Fall General Chief Complaint: Fall Stated Complaint: fall, back pain and left side of body feels numb Related Data Home Medications ?Medication ?Instructions ?Recorded ?Confirmed clonazepam 1 mg tablet 0.5 mg PO BID 10/31/2206/08 desvenlafaxine succinate 50 mg 50 mg PO DAILY 07/30/24 06/08/25 tablet,extended release 24 hr zolpidem 10 mg tablet 5 mg PO BEDTIME 10/26/24 Previous Rx's ?Medication ?Instructions ?Recorded disposable gloves #1,000 ea 04/02/23 diaper,brief,adult,disposable #120 ea 05/20/23 miscellaneous medical supply 1 ea miscellaneous DAILY 99 days 10/28/23 #1 ea compr.stocking,knee,long,large #2 ea 11/07/23 cane #1 ea 11/13/23 back brace #1 ea 12/02/23 soft neck brace #1 ea 12/02/23 incontinence pad, liner, disp #200 ea 02/19/24 albuterol sulfate 90 mcg/actuation 2 puff inhalation Q ID PRN 03/24/24 aerosol inhaler (Ventolin HFA) shortness of breath or wheezing 30 days #18 grams disposable face masks #1 ea 03/26/24 fluticasone fur. 200 mcg-umeclid 1 inh inhalation BAHMAN Y 30 days #60 03/26/24 62.5 mcg-vilant 25 mcg ea inhalat.powder (Trelegy Ellipta) fluticasone furoate 200 1 inh inhalation DAILY 30 da ys #60 04/06/24 mcg-vilanterol 25 mcg/dose ea inhalation powder (Breo Ellipta) diphenhydramine HCl 25 mg capsule 25 mg PO Q8H allergi es 90 days 06/23/24 (Banophen) #270 caps round raised toilet seat #1 ea 07/09/24 vitamin B complex and vitamin C 1 cap PO DAILY 90 days #90 caps 11/09/24 no.20-folic acid 1 mg capsule (Wescaps) humidifiers (Cool Mist Humidifier) #1 ea 11/30/24 topiramate 200 mg tablet 200 mg PO BID 90 days #180 t abs 11/30/24 folic acid 1 mg tablet 1 mg PO DAILY 90 days #90 ta bs 12/21/24 furosemide 20 mg tablet 20 mg PO DAILY 90 days #90 t abs 12/21/24 Held on 06/21/25. Instructions: Doctor's Order cholecalciferol (vitamin D3) 50 50 mcg PO DAILY 90 day s #90 caps 01/15/25 mcg (2,000 unit) capsule magnesium oxide 400 mg PO BEDTIME 90 days #9 0 caps 01/15/25 alendronate 70 mg tablet (Fosamax) 70 mg PO QWEEK 12 w eeks #12 tabs 01/20/25 lidocaine 5 % topical patch 1 patch topical DAILY 30 d ays #30 01/20/25 ea baclofen 10 mg tablet 20 mg (2 x 10 mg) PO BEDTIME 90 01/27/25 days #180 tabs EXERCISE BIKE #1 ea 02/01/25 bed pads #120 ea 02/03/25 Soft TLSO with shoulder straps #1 ea 03/04/25 epinephrine 0.3 mg/0.3 mL 0.3 mg (0.3 mL) IM ONCE PRN 03/25/25 injection, auto-injector (EpiPen anaphylaxis 30 days # 2 ea 2-Kamaljit) walker (Ultra-Light Rollator misc) #1 ea 03/26/25 leg brace (Knee Support Brace) #1 ea 03/31/25 montelukast 10 mg tablet 10 mg PO DAILY 90 days #90 t abs 04/13/25 adult pullups #300 ea 04/19/25 acetaminophen 650 mg 650 mg PO Q12H 30 days #60 t abs 04/22/25 tablet,extended release (Tylenol Arthritis Pain) omeprazole 20 mg capsule,delayed 20 mg PO DAILY 90 day s #90 caps 05/15/25 release Left wrist splint #1 ea 05/17/25 apixaban 5 mg tablet (Eliquis) 5 mg PO BID 90 days #18 0 tabs 05/25/25 gabapentin 400 mg capsule 400 mg PO DAILY 30 days #30 caps 05/25/25 oxybutynin chloride 15 mg 15 mg PO DAILY 90 days #90 t abs 05/25/25 tablet,extended release 24 hr primidone 50 mg tablet 100 mg (2 x 50 mg) PO TID RL S 3 05/25/25 months #540 tabs betamethasone dipropionate 0.05 % 1 appl topical DAILY PRN skin 05/27/25 topical cream irritation 4 weeks #45 grams loperamide 2 mg capsule 2 mg PO Q8H PRN loose stool 7 days 05/28/25 #21 caps doxycycline hyclate 100 mg capsule 100 mg PO BID 10 da ys #20 caps 06/21/25 tramadol 50 mg tablet 50 mg PO BID PRN pain 10 day s #20 06/22/25 tabs diclofenac sodium 1 % topical gel 4 g topical QID 30 d ays #100 grams 07/02/25 Allergies Allergy/AdvReac Type Severity Reaction Status Date / Time cat dander (CATS) Allergy Mild HAYFEVER Verified 07/05/25 14:33 Chocolate Allergy Mild HEADACHES Verified 07/05/25 14:33 dog dander (DOGS) Allergy Mild HAYFEVER Verified 07/05/25 14:33 Environmental Allergy Mild HAYFEVER Uncoded 06/08/25 09:34 yellow jackets Allergy Anaphylaxis Uncoded 06/08/25 09:34 PMFSH Past Medical History Medical History Vitamin B12 deficiency Hx of deep venous thrombosis Microcytic anemia COPD with emphysema Prerenal azotemia Toxic metabolic encephalopathy Transaminitis Allergies Chronic allergic rhinitis Asthma-COPD overlap syndrome COPD exacerbation COVID-19 History of abnormal cervical Pap smear Spinal stenosis, cervical region Peripheral polyneuropathy Spondylosis of cervical spine Spondylosis of lumbar spine Cocaine abuse Alcohol abuse Hepatitis Heart murmur History of cocaine abuse History of heroin abuse Hydradenitis Former cigarette smoker Recovering alcoholic GERD (gastroesophageal reflux disease) Lumbago with sciatica, left side Arthritis Back pain On anticoagulant therapy DVT (deep venous thrombosis) History of celiac disease Anxiety Panic attacks Depression PTSD (post-traumatic stress disorder) Parkinson disease History of frequent headaches Seizure Asthma Surgical History H/O excision of ganglion cyst Hx of esophagogastroduodenoscopy History of carpal tunnel surgery of left wrist Hx of nasal septoplasty History of hemorrhoidectomy Hx of colonoscopy Family History Family History Mother No problems noted. Social History Social History Housing: Apartment Are you a primary anesthesiologist and critical care to a significant other at home: No Do you presently have visiting nurse or other home services: Yes Alcohol intake: former Year quit: 2003 Comment: was seen at [facility]-called for note Patient Tobacco Use Status: Current everyday Tobacco user Tobacco use type: Cigarette Cigarette Packs Per Day: 1 Cigarettes Per Day: 20 Years Smoked: 45 e-Cigarette/Vaping Use: Former Use Second Hand Smoke Exposure: Yes Advance Directives: No Advance Directives Information Provided: No Do you have a plan to hurt others: No Plan service: No Current occupational status: disabled Cognitive needs: Yes (back brace) Hearing needs: No Vision needs: Yes Physical Exam Vital Signs: Vital Signs: Last Vital Signs Temp 98.6 F 07/05/25 14:29 Pulse 88 07/05/25 14:29 Resp 16 07/05/25 14:29 BP 161/76 H 07/05/25 14:29 Pulse Ox 99 07/05/25 14:29 O2 Del Method Room Air 07/05/25 14:29 BMI result Body Mass Index 36.2 Course Course Course Narrative: This is a Rapid Medical Examination (RME) performed by Davey Montiel PA-C in triage. Full HPI, ROS, assessment and treatment plan per primary provider in the Main ED. Hx: 64 yo F here for eval s/p multiple falls over the last few days d/t ongoing left leg numbness. cannot state whether or not she struck her head. she is on eliquis. reports chronic low back issues, has an appointment with ortho next month, declining any steroid injections and wants surgery. Plan: imaging Reevaluation(s) Reevaluation #1: Patient left the emergency department before myself or any of the other clinicians could review or explain physical exam findings, test results, need or lack there of for additional testing, treatment options, or a treatment plan. Discharge Plan Discharge Clinical Impression: Frequent falls Patient Disposition: Left W/O Completing Treatment Prescriptions: No Action (DME) disposable gloves Misc See Rx Instructions .Route Qty: 1000 3RF Rx Instructions: As directed (DME) diaper,brief,adult,disposable Misc See Rx Instructions .Route Qty: 120 0RF Rx Instructions: As directed miscellaneous medical supply Misc 1 ea miscellaneous DAILY 99 Days Qty: 1 0RF (DME) cane Device See Rx Instructions .Route Qty: 1 0RF Rx Instructions: As directed (DME) soft neck brace See Rx Instructions .Route .MEDSUPPLY Qty: 1 0RF Rx Instructions: As directed (DME) back brace Misc See Rx Instructions .Route Qty: 1 0RF Rx Instructions: As directed (DME) incontinence pad, liner, disp Pad See Rx Instructions .Route Qty: 200 1RF Rx Instructions: As directed Trelegy Ellipta 200-62.5-25 mcg blister with device 1 inh inhalation DAILY 30 Days Qty: 60 12RF (DME) disposable face masks See Rx Instructions .Route .MEDSUPPLY Qty: 1 0RF Rx Instructions: As directed fluticasone furoate-vilanterol [Breo Ellipta] 200-25 mcg/dose blister with device 1 inh inhalation DAILY 30 Days Qty: 60 11RF diphenhydramine HCl [Banophen] 25 mg capsule 25 mg PO Q8H 90 Days Qty: 270 3RF (DME) round raised toilet seat See Rx Instructions .Route .MEDSUPPLY Qty: 1 0RF Rx Instructions: As directed Wescaps 1 mg capsule 1 cap PO DAILY 90 Days Qty: 90 1RF folic acid 1 mg tablet 1 mg PO DAILY 90 Days Qty: 90 0RF furosemide 20 mg tablet 20 mg PO DAILY 90 Days Qty: 90 0RF cholecalciferol (vitamin D3) 50 mcg (2,000 unit) capsule 50 mcg PO DAILY 90 Days Qty: 90 1RF magnesium oxide 400 mg magnesium capsule 400 mg PO BEDTIME 90 Days Qty: 90 2RF lidocaine 5 % adhesive patch,medicated 1 patch topical DAILY 30 Days Qty: 30 3RF Rx Instructions: leave on most painful area for up to 12 hrs alendronate [Fosamax] 70 mg tablet 70 mg PO QWEEK 84 Days Qty: 12 1RF baclofen 10 mg tablet 20 mg PO BEDTIME 90 Days Qty: 180 1RF (DME) EXERCISE BIKE See Rx Instructions .Route .MEDSUPPLY Qty: 1 0RF Rx Instructions: As directed (DME) bed pads See Rx Instructions .Route .MEDSUPPLY Qty: 120 11RF Rx Instructions: As directed (DME) Soft TLSO with shoulder straps See Rx Instructions .Route .MEDSUPPLY Qty: 1 0RF Rx Instructions: As directed epinephrine [EpiPen 2-Kamaljit] 0.3 mg/0.3 mL auto-injector 0.3 mg IM ONCE PRN (Reason: anaphylaxis) 30 Days Qty: 2 0RF (DME) Ultra-Light Rollator Misc See Rx Instructions .Route Qty: 1 0RF Rx Instructions: As directed (DME) Knee Support Brace Misc See Rx Instructions .Route Qty: 1 0RF Rx Instructions: Need for distance education director left knee brace with medial support montelukast 10 mg tablet 10 mg PO DAILY 90 Days Qty: 90 1RF (DME) adult pullups medium See Rx Instructions .Route .MEDSUPPLY Qty: 300 11RF Rx Instructions: As directed acetaminophen [Tylenol Arthritis Pain] 650 mg tablet extended release 650 mg PO Q12H 30 Days Qty: 60 2RF omeprazole 20 mg capsule,delayed release(DR/EC) 20 mg PO DAILY 90 Days Qty: 90 0RF (DME) Left wrist splint See Rx Instructions .Route .MEDSUPPLY Qty: 1 0RF Rx Instructions: As directed gabapentin 400 mg capsule 400 mg PO DAILY 30 Days Qty: 30 3RF oxybutynin chloride 15 mg tablet extended release 24hr 15 mg PO DAILY 90 Days Qty: 90 3RF Eliquis 5 mg tablet 5 mg PO BID 90 Days Qty: 180 3RF primidone 50 mg tablet 100 mg PO TID MDD 600mg 90 Days Qty: 540 0RF Rx Instructions: take 2 -50mg tablets by mouth TID for seizure disorder betamethasone dipropionate 0.05 % cream 1 appl topical DAILY PRN (Reason: skin irritation) 28 Days Qty: 45 0RF loperamide 2 mg capsule 2 mg PO Q8H PRN (Reason: loose stool) 7 Days Qty: 21 1RF tramadol 50 mg tablet 50 mg PO BID PRN (Reason: pain) 10 Days Qty: 20 0RF diclofenac sodium 1 % gel 4 g topical QID 30 Days Qty: 100 3RF Rx Instructions: apply to single elbow, wrist or hand; for hand includes palm/fingers/back of hand clonazepam 1 mg tablet 0.5 mg PO BID (DME) compr.stocking,knee,long,large Misc See Rx Instructions .Route Qty: 2 0RF Rx Instructions: As directed zolpidem 10 mg tablet 5 mg PO BEDTIME albuterol sulfate [Ventolin HFA] 90 mcg/actuation HFA aerosol inhaler 2 puff inhalation QID PRN (Reason: shortness of breath or wheezing) 30 Days Qty: 18 11RF desvenlafaxine succinate 50 mg tablet extended release 24 hr 50 mg PO DAILY (DME) humidifiers [Cool Mist Humidifier] Misc See Rx Instructions .Route Qty: 1 0RF Rx Instructions: As directed topiramate 200 mg tablet 200 mg PO BID 90 Days Qty: 180 1RF doxycycline hyclate 100 mg capsule 100 mg PO BID 10 Days Qty: 20 0RF Discharge Date/Time: 07/05/25 21:16
--- OUTSIDE RECORDS SUMMARY | 2025-07-05 21:09 | XMS_ITS | Patient Health Record ---
Author Organization [facility] Address [address] [place] [address] Care Team Providers Care Lead Project Engineer Name Role Phone Sudhir Martin Primary Care Provider Boris Whitmore Unavailable [phone] Allergies Allergen (clinical drug ingredient) Drug/Non Drug [...] Problem Status W/U Status Risk Notes Problem 024781681 Encounter for screening for malignant neoplasm of colon (Z12.11) Active confirmed Problem 408615408 History of adenomatous polyp of colon (Z86.010) Active confirmed Problem 11467123 Diarrhea (R19.7) Active confirmed Problem 33733443 Weight loss (R63.4) Active confirmed Problem 117378150 Celiac disease (K90.0) Active confirmed Problem 26932824 Constipation, unspecified constipation type (K59.00) Active confirmed Problem 579824016 Positive autoantibody screening for celiac disease (R76.8) Active confirmed Problem 08266157 Diarrhea, unspecified type (R19.7) Active confirmed Plan [...] Name:Boris Kimbrough Joni , 11/02/2025 09:30:00 AM, [address] [place] [address], [address], [place], [address], Insurance Providers Payer Name Payer Address Payer Phone Subscriber Number Group Number Insured Name Patient Relationship to Insured Coverage Start Date Coverage End Date [facility] [address] [address] [place], [place] [id number] [employer]EP [employer] Self - patient is the [...]
== END 2025-07-05 21:16 | disposition left against medical advice (07) ==
PROVIDERS: Emergency Provider Emergency Medicine; PCP Physician Assistant
DX: M54.9 Dorsalgia, unspecified (principal); R20.0 Anesthesia of skin; Z91.81 History of falling; Z79.01 Long term (current) use of anticoagulants; Z79.899 Other long term (current) drug therapy
CPT/HCPCS: 70450; 72100; 72125; 99281; 99284

== ENCOUNTER → 2025-07-05 14:43 | Outpatient (BNV) | payer OTHER, SELFPAY | PROVIDERS: PCP Physician Assistant; Visit Provider Radiology Diagnostic Radiology | DX: M50.30 Other cervical disc degeneration, unspecified cervical region (principal); R29.6 Repeated falls; M47.817 Spondylosis without myelopathy or radiculopathy, lumbosacral region | CPT/HCPCS: 70450; 72100; 72125 ==

== ENCOUNTER 2025-07-08 08:26 | Outpatient (AMB) | payer OTHER, SELFPAY ==
--- NOTE | 2025-07-08 08:39 | A.OFFPC_ITS ---
Vital Signs 07/08/25 08:40 07/08/25 08:41 Height 5 ft 2 in 5 ft 2 in Weight 199 lb 15.348 oz BMI 36.6 BP 142/64 H Blood Pressure Location Lt brachial Lt brachial Position Sitting Sitting Pulse 78 Pulse Source Pulse Oximeter Pulse Oximeter Temp Source Temporal Artery Scan Pulse Oximetry (%) 97 Oxygen Delivery Method Room Air Room Air Intake Visit Reasons: f/u COPD / back issuses Intake Note: Patient is here to follow up on COPD, Back issues. Pipe Crew Foreman Required: No Enrichment Director: Not Required per policy Accompanied by: Self / Same As Patient Allergies cat dander (CATS) Allergy (Mild, Verified 07/08/25 09:08) HAYFEVER Chocolate Allergy (Mild, Verified 07/08/25 09:08) HEADACHES dog dander (DOGS) Allergy (Mild, Verified 07/08/25 09:08) HAYFEVER Environmental Allergy (Mild, Uncoded 07/08/25 09:08) HAYFEVER yellow jackets Allergy (Uncoded 07/08/25 09:08) Anaphylaxis Medication List - Last Reconciled 07/08/25 by Sudhir Martin PA-C acetaminophen ER (Tylenol Arthritis Pain) 650 mg PO Q12H 30 days [adult pullups As directed] albuterol sulfate 90 mcg/actuation (Ventolin HFA) 2 puffs inhalation QID PRN 30 days alendronate (Fosamax) 70 mg PO QWEEK 12 weeks apixaban (Eliquis) 5 mg PO BID 90 days B complex and C 20-folic acid 1 mg (Wescaps) 1 cap PO DAILY 90 days back brace As directed baclofen 20 mg (2 x 10 mg) PO BEDTIME 90 days [bed pads As directed] betamethasone dipropionate 0.05% 1 appl topical DAILY PRN 4 weeks cane As directed cholecalciferol (vitamin D3) 50 mcg PO DAILY 90 days clonazepam 0.5 mg PO BID compr.stocking,knee,long,large As directed desvenlafaxine succinate ER 50 mg PO DAILY diaper,brief,adult,disposable As directed diclofenac sodium 1% 4 grams topical QID 30 days diphenhydramine HCl (Banophen) 25 mg PO Q8H 90 days [disposable face masks As directed] disposable gloves As directed doxycycline hyclate 100 mg PO BID 10 days epinephrine (EpiPen 2-Kamaljit) 0.3 mg (0.3 mL) IM ONCE PRN 30 days [EXERCISE BIKE As directed] fluticasone furoate-vilanterol 200-25 mcg/dose (Breo Ellipta) 1 inh inhalation DAILY 30 days zbloshkwzsj-pneeacyze-rchitlwh 200-62.5-25 mcg (Trelegy Ellipta) 1 inh inhalation DAILY 30 days folic acid 1 mg PO DAILY 90 days furosemide 20 mg PO DAILY 90 days Held on 06/21/25. Instructions: Doctor's Order gabapentin 400 mg PO DAILY 30 days humidifiers (Cool Mist Humidifier) As directed incontinence pad, liner, disp As directed [Left wrist splint As directed] leg brace (Knee Support Brace) Need for lockstitcher left knee brace with medial support lidocaine 5% 1 patch topical DAILY 30 days lisinopril 2.5 mg PO DAILY loperamide 2 mg PO Q8H PRN 7 days magnesium oxide 400 mg PO BEDTIME 90 days miscellaneous medical supply 1 ea miscellaneous DAILY 99 days montelukast 10 mg PO DAILY 90 days omeprazole 20 mg PO DAILY 90 days oxybutynin chloride ER 15 mg PO DAILY 90 days primidone 100 mg (2 x 50 mg) PO TID 3 months MDD 600mg [round raised toilet seat As directed] [soft neck brace As directed] [Soft TLSO with shoulder straps As directed] topiramate 200 mg PO BID 90 days tramadol 50 mg PO BID PRN 10 days walker (Ultra-Light Rollator misc) As directed zolpidem 5 mg PO BEDTIME Tobacco use date assessed: 07/08/25 Fall risk assessment: 1 Fall in past year Last assessed Fall Risk: 07/08/25 Dental Screening Dental Screen Date: 07/08/25 Did you have a dental visit in the last 12 months?: No Did you have a dental problem in the last 6 months where you did not have access to dental care?: No Was dental information given to patient?: No HPI f/u COPD / back issuses HPI Details Patient is a 64-year-old female here today for a follow-up visit. ? Patient has a past medical history significant for polysubstance abuse, spinal stenosis, anxiety, depression, pernicous anemia, DVT ( left leg), parkinsons.? Concern--> Recently seen at the [facility] for yet another fall. She reports frequent falls due to numbness in her left leg, attributed to a disc issue in her back. She has undergone physical therapy and received cortisone injections, which provided only temporary relief. The patient expresses a need for surgical intervention as conservative measures have been ineffective. The patient has a history of Parkinson's disease, which she believes contributes to her balance issues. She experiences leaning to the left, which she attributes to Parkinson's disease.] --> patient is asking for increased BASE LOADER hours as she feels she is still not able to complete all her ADLs due to not having hours in the morning. Letter written Tobacco dependency: Patient continues to smoke. Has tried Chantix though not effective. She declines my offer to start nicotine replacement She does understand she needs to quit smoking .. Class 2 Obese: She reports she has been trying a low-calorie diet and does do as much physical activity as she can given her tremor disorder and Parkinson's disorder. Of note have noticed lower extremity swelling thus will use furosemide for the next 2 weeks to help some of the fluid retention. .. .. PTSD: Is followed by a psychiatrist and a mental health therapist. Was using Topamax for her PTSD disorder though does admit to taking a bit more Topamax to help her with weight loss though had caused some disorientation and an acute kidney injury leading to hospital admission recently. .. Lumbar Spinal stenosis: She is now wearing a lumbar support brace. She has seen neurosurgeon in the past about her neck in the past though was not deemed a surgical candidate MRI of lumbar spine-- >3. Minimal to mild disc bulges at L1-2, L3-4 and L4-5. 4. L5-S1 facet arthropathy. She has done physical therapy and currently using a Rollator walker. She reports getting injections in the past though have not been effective. Currently a recovering addict and does not use any pain medication besides Tylenol at this time. .. Parkinsons: Sees a neurologist, continues on primidone for her tremor. Apparently carbidopa levodopa has been discontinued. ? Also followed for a seizure disorder and denies any recent seizure activity. .? She reports her balance has gotten wo rse, does report recent fall.? She is interested in seeing a physical therapist for balance training. .. .. h/o polysubtance abuse ( alcohol, crack cocain) : Has been sober since 2013.? She is in a fellowship (AA/ NA) . Major depressive disorder/ generalized anxiety disorder:? She is followed psychiatrist now who manages her mental health medications. She feels her depression is fairly well managed at this time.?? She reports he continues to have trouble with sleep even with use of trazodone, Benadryl and gabapentin at night.? [facility] Medical History (Updated 07/08/25 @ 11:06 by Sudhir Martin PA-C) Vitamin B12 deficiency Hx of deep venous thrombosis Microcytic anemia COPD with emphysema Prerenal azotemia Toxic metabolic encephalopathy Transaminitis Allergies Chronic allergic rhinitis Asthma-COPD overlap syndrome COPD exacerbation COVID-19 History of abnormal cervical Pap smear Spinal stenosis, cervical region Peripheral polyneuropathy Spondylosis of cervical spine Spondylosis of lumbar spine Cocaine abuse Alcohol abuse Hepatitis Heart murmur History of cocaine abuse History of heroin abuse Hydradenitis Former cigarette smoker Recovering alcoholic GERD (gastroesophageal reflux disease) Lumbago with sciatica, left side Arthritis Back pain On anticoagulant therapy DVT (deep venous thrombosis) History of celiac disease Anxiety Panic attacks Depression PTSD (post-traumatic stress disorder) Parkinson disease History of frequent headaches Asthma Surgical History H/O excision of ganglion cyst Hx of esophagogastroduodenoscopy History of carpal tunnel surgery of left wrist Hx of nasal septoplasty History of hemorrhoidectomy Hx of colonoscopy Family History Mother No problems noted. Social History Housing: Apartment Are you a primary child care team lead to a significant other at home: No Do you presently have visiting nurse or other home services: Yes Alcohol intake: former Year quit: 2003 Comment: was seen at [facility]-called for note Patient Tobacco Use Status: Current everyday Tobacco user Tobacco use type: Cigarette Cigarette Packs Per Day: 1 Cigarettes Per Day: 20 Years Smoked: 45 e-Cigarette/Vaping Use: Former Use Second Hand Smoke Exposure: Yes service: No Current occupational status: disabled Cognitive needs: Yes (back brace) Hearing needs: No Vision needs: Yes Questionnaire Thrive Questionnaire Date Thrive assessed: 04/08/25 I am a: Patient What is your living situation today?: I have a steady place to live Within the past 12 months, did the food you bought not last and you didn't have the money to get more?: Never true Within the past 12 months, did you worry whether your food would run out before you got money to buy more?: Never true Do you have trouble paying for medicines?: No Do you have trouble getting transportation to medical appointments?: No Do you have trouble paying your heating and electricity bill?: No Do you have trouble taking care of your child, family member or friend?: No Do you have trouble with day-to-day activities such as bathing, preparing meals, shopping, managing finances, etc.?: Yes Are you currently unemployed and looking for a job?: No Are you interested in more education?: Yes Please select the resources that you would like help with: None Currently or been in a relationship where the following occur: No concerns reported THRIVE Score: 0 LUISA-7 AMB Questionnaire LUISA-7 Date LUISA - 7 assessed: 01/05/25 Source: Developed by Drs. Boris Garcia, Qian Bullard, Hector Herzog and colleagues, with an educational miguel a from [employer]. Review of Systems Const Denies headache(s) Eyes Denies loss of vision ENT Denies vertigo, Denies dizziness, Denies headache(s) and Denies sore throat Card Denies chest pain, Denies leg edema and Denies lightheadedness Resp Denies cough, Denies hemoptysis and Denies wheezing GI Denies abdominal pain, Denies melena, Denies constipation, Denies diarrhea and Denies vomiting Denies urinary frequency, Denies dysuria and Denies urinary urgency Musc Denies arthralgias, Denies joint swelling, Denies numbness and Denies tingling Neuro Denies Abnormal speech present, Denies behavioral changes, Denies vertigo, Denies dizziness, Denies headache(s), Denies loss of vision, Denies memory loss, Denies numbness and Denies tingling Psych Denies anxiety, Denies behavioral changes, Denies depression, Denies memory loss and Denies panic attacks Carlos/Lymph Denies easy bleeding and Denies easy bruising Aller/Immun Denies wheezing Physical exam (Primary Care) Vital Signs: Last Vital Signs Pulse 78 07/08/25 08:41 BP 142/64 H 07/08/25 08:41 Pulse Ox 97 07/08/25 08:41 Oxygen Delivery Method Room Air 07/08/25 08:41 BMI result Body Mass Index 36.6 Tobacco/Smoking Status: Tobacco use Status Tobacco use date assessed 07/08/25 07/08/25 08:41 Patient Tobacco Use Status Current everyday Tobacco 07/08/25 08:41 Tobacco use type Cigarette 07/08/25 08:41 e-Cigarette/Vaping Use Former Use 07/08/25 08:41 Thrive Assessment: Date of Thrive Assessment Date Thrive assessed 04/08/25 07/08/25 08:41 Currently or been in a relationship where the following occur: No concerns reported Const General: healthy appearing, no acute distress, alert and awake Nutritional Appearance: well nourished Orientation/consciousness: oriented to person, oriented to place and oriented to time HENMT Ears: TM's normal bilaterally General nose exam: Normal nasal mucous membranes and turbinates present Eyes Conjunctivae: conjunctivae normal Sclerae: sclerae normal Pupils: Equal, round and reactive pupils present Neck Neck: Yes no lymphadenopathy and Yes no JVD Thyroid: Thyroid normal Carotids: no bruits Resp Effort & Inspection: normal respiratory effort and not tachypneic Auscultation: no crackles, no rales, no rhonchi and no wheezes Cardio Rate: regular rate Rhythm: regular rhythm Heart sounds: no murmurs and normal S1 and S2 GI Palpation (GI): Soft to palpation, nontender, no hepatomegaly and no splenomegaly Auscultation: normal bowel sounds Back/Spine/Pelvis Other: LIMITED RANGE OF MOTION LUMBAR SPINE DUE TO PAIN AND STIFFNESS, AMBULATING WITH THE ASSISTANCE FROM A ROLLATOR. Skin General skin exam: no rashes or lesions noted and dry skin Neuro General: oriented to person, oriented to place and oriented to time Cranial nerves: Yes Equal, round and reactive pupils present Speech: No Abnormal speech present Gait exam (Neuro): Normal gait present Motor exam (neuro): no tremor noted Extrem Other: BILATERAL LOWER EXTREMITY EDEMA TO IN LEVEL OF MID TADEO Right upper extremity: full ROM Left upper extremity: full ROM Right lower extremity: full ROM and edema Left lower extremity: full ROM and edema Psych Mental Status: mental status grossly normal Speech and movement: Normal speech and movement present Affect: normal affect Attitude: cooperative Thought process: Normal thought process present Coding Level of Care Code Est Pt Level 4 (60762) Diagnoses Lumbar radiculopathy M54.16 Simple chronic bronchitis J41.0 COPD type: chronic bronchitis Chronic bronchitis type: simple Parkinson's disease with dyskinesia without fluctuating manifestations G20.B1 Dyskinesia presence: with dyskinesia Fluctuating manifestations: without fluctuating manifestations Primary hypertension I10 Hypertension type: primary hypertension Tobacco dependence F17.200 Cocaine abuse F14.10 Assessment & Plan Assessment & Plan (1) Lumbar radiculopathy: Code(s): M54.16 - Radiculopathy, lumbar region Category: Medical Plan: The patient has been experiencing frequent falls due to numbness in the left leg, attributed to lumbar disc disease. She has undergone physical therapy and received cortisone injections, which provided only temporary relief. A referral to a communication specialist for surgical evaluation has been made, as conservative measures have been ineffective. (2) COPD (chronic obstructive pulmonary disease): Code(s): J44.9 - Chronic obstructive pulmonary disease, unspecified Category: Medical Qualifiers: COPD type: chronic bronchitis Chronic bronchitis type: simple Qualified Code(s): J41.0 - Simple chronic bronchitis Plan: Patient unfortunately continues to smoke. She does report having a cough and shortness of breath at times. She reports being on oxygen in the hospital and felt she was breathing better. (3) Parkinson disease: Code(s): G20 - Parkinson's disease Category: Medical Qualifiers: Dyskinesia presence: with dyskinesia Fluctuating manifestations: without fluctuating manifestations Qualified Code(s): G20.B1 - Parkinson's disease with dyskinesia, without mention of fluctuations Plan: Continues to follow neurology and continues on primidone for her tremors. She reports her tremors have gotten a bit worse over the last several months. She has not had any recent falls though does use a walker for ambulation assistance. (4) HTN (hypertension): Code(s): I10 - Essential (primary) hypertension Category: Medical Qualifiers: Hypertension type: primary hypertension Qualified Code(s): I10 - Essential (primary) hypertension Plan: Patient's blood pressure acceptable today in office. Will continue her current antihypertensive - lisinopril 2.5 Otherwise goal blood pressures to be below 140/90 (5) Tobacco dependence: Code(s): F17.200 - Nicotine dependence, unspecified, uncomplicated Category: Medical Plan: As per HPI patient unfortunately continues to smoke cigarettes daily. She has tried nicotine replacement and Chantix in the past though has been ineffective. Return nicotine replacement again though she declines (6) Cocaine abuse: Code(s): F14.10 - Cocaine abuse, uncomplicated Category: Medical Plan: In remission has been sober for many years now. Actively works a 12 step program. Orders: Referrals Neuro Spine Referral M48.061 - Spinal stenosis, lumbar region without neurogenic claudication Medications: New lisinopril 2.5 mg PO DAILY 90 tabs 1RF 90 days I10 - Essential (primary) hypertension Refilled miscellaneous medical supply 1 ea miscellaneous DAILY 1 ea 0RF 99 days M54.2 - Cervicalgia acetaminophen ER (Tylenol Arthritis Pain) 650 mg PO Q12H 60 tabs 3RF 30 days M19.90 - Unspecified osteoarthritis, unspecified site, M54.16 - Radiculopathy, lumbar region cholecalciferol (vitamin D3) 50 mcg PO DAILY 90 caps 1RF 90 days E55.9 - Vitamin D deficiency, unspecified, M81.0 - Age-related osteoporosis without current pathological fracture folic acid 1 mg PO DAILY 90 tabs 3RF 90 days E53.8 - Deficiency of other specified B group vitamins magnesium oxide 400 mg PO BEDTIME 90 caps 2RF 90 days I10 - Essential (primary) hypertension omeprazole 20 mg PO DAILY 90 caps 2RF 90 days R10.13 - Epigastric pain topiramate 200 mg PO BID 180 tabs 2RF 90 days F33.1 - Major depressive disorder, recurrent, moderate compr.stocking,knee,long,large As directed 2 ea 0RF M79.89 - Other specified soft tissue disorders betamethasone dipropionate 0.05% 1 appl topical DAILY PRN 45 grams 3RF skin irritation 4 weeks L03.116 - Cellulitis of left lower limb alendronate (Fosamax) 70 mg PO QWEEK 12 tabs 1RF 12 weeks M81.0 - Age-related osteoporosis without current pathological fracture baclofen 20 mg (2 x 10 mg) PO BEDTIME 180 tabs 1RF 90 days M62.838 - Other muscle spasm loperamide 2 mg PO Q8H PRN 21 caps 1RF loose stool 7 days R19.7 - Diarrhea, unspecified montelukast 10 mg PO DAILY 90 tabs 1RF 90 days J30.1 - Allergic rhinitis due to pollen
[2025-07-08 08:41] VITALS: BP 142/64; PULSE 78; O2SAT 97; BMI 36.6
--- OUTSIDE RECORDS SUMMARY | 2025-07-08 09:21 | XMS_ITS | Patient Health Record ---
Author Organization [facility] Address [address] [place] [address] Care Team Providers Care Daily Release And Dupe Printer Name Role Phone Sudhir Martin Primary Care Provider Boris Whitmore Unavailable [phone] Allergies Allergen (clinical drug ingredient) Drug/Non Drug [...] Problem Status W/U Status Risk Notes Problem [id number] Encounter for screening for malignant neoplasm of colon (Z12.11) Active confirmed Problem 302581791 History of adenomatous polyp of colon (Z86.010) Active confirmed Problem 19690428 Diarrhea (R19.7) Active confirmed Problem 98765027 Weight loss (R63.4) Active confirmed Problem 876245944 Celiac disease (K90.0) Active confirmed Problem 64806533 Constipation, unspecified constipation type (K59.00) Active confirmed Problem 139930475 Positive autoantibody screening for celiac disease (R76.8) Active confirmed Problem 14766606 Diarrhea, unspecified type (R19.7) Active confirmed Plan [...] Name:Boris Kimbrough Joni , 11/02/2025 09:30:00 AM, [address] [place] [address], [address], [place], [address], Insurance Providers Payer Name Payer Address Payer Phone Subscriber Number Group Number Insured Name Patient Relationship to Insured Coverage Start Date Coverage End Date [facility] [address] [address] [place], [place] [id number] [employer] Self - patient is the insured Medical (General) History Medical History History ICD Code COPD/asthma Denies LA,DM,CVA,renal disease C.difficile in 2008--negative stool spec imens [...]
== END 2025-07-08 09:39 | disposition home or self-care (01) ==
LOC: HO.HMCH 08:27
PROVIDERS: PCP Physician Assistant; Visit Provider Physician Assistant
DX: J41.0 Simple chronic bronchitis (principal); G20.B1 Parkinson's disease with dyskinesia, without mention of fluctuations; F14.10 Cocaine abuse, uncomplicated; M54.16 Radiculopathy, lumbar region; I10 Essential (primary) hypertension; F17.200 Nicotine dependence, unspecified, uncomplicated

== ENCOUNTER → 2025-07-08 08:26 | Outpatient (BNVA) | payer OTHER, SELFPAY | PROVIDERS: PCP Physician Assistant; Visit Provider Physician Assistant | DX: M54.16 Radiculopathy, lumbar region (principal); J41.0 Simple chronic bronchitis; F43.10 Post-traumatic stress disorder, unspecified; M48.061 Spinal stenosis, lumbar region without neurogenic claudication; G20.A1 Parkinson's disease without dyskinesia, without mention of fluctuations; F32.9 Major depressive disorder, single episode, unspecified; F41.1 Generalized anxiety disorder; G20.B1 Parkinson's disease with dyskinesia, without mention of fluctuations; I10 Essential (primary) hypertension; E66.812 Obesity, class 2; F17.210 Nicotine dependence, cigarettes, uncomplicated; Z68.36 Body mass index [BMI] 36.0-36.9, adult | CPT/HCPCS: 99212 ==

== ENCOUNTER 2025-07-12 09:30 | Outpatient (AMB) | payer OTHER, SELFPAY ==
--- NOTE | 2025-07-12 09:57 | A.SPINEOV_ITS ---
Vital Signs 07/12/25 10:01 Height 5 ft 2 in Weight 199 lb BMI 36.4 Intake Visit Reasons: spinal stenosis/lumbar region Intake Note: Ms. Costa is here today c/o Low back pain and Left Leg numbness. Steam Room Attendant Required: No Allergies cat dander (CATS) Allergy (Mild, Verified 07/08/25 09:08) HAYFEVER Chocolate Allergy (Mild, Verified 07/12/25 10:02) HEADACHES dog dander (DOGS) Allergy (Mild, Verified 07/08/25 09:08) HAYFEVER Environmental Allergy (Mild, Uncoded 07/08/25 09:08) HAYFEVER yellow jackets Allergy (Uncoded 07/08/25 09:08) Anaphylaxis Physical Exam Vital Signs: BMI result Body Mass Index 36.4 Assessment & Plan Assessment & Plan (1) Lumbago: Code(s): M54.50 - Low back pain, unspecified Category: Medical Plan HPI: Ashly is a pleasant 64 year old female who is known to our service and was evaluated by Dr. Bernard about 10 months ago regarding her low back pain and intermittent radiculopathy. He reviewed her previous CT scan imaging which showed very poor bone quality, disqualifying her for lumbar fusion. He did obtain an MRI to further evaluate the neural elements, but decided that the compression seen on imaging was not sufficient to warrant surgery. Today, she reports that she has continued to suffer from severe low back pain since her previous office visit with Dr. Bernard. In addition to this she continues to have numbness over her left lower extremity. She reports that this intermittent numbness will cause her to occasionally fall. She denies leg pain. She is very concerned about this as she is on Eliquis (Hx DVTs), and currently ambulates with the assistance of a walker. She also reports recently being diagnosed with Parkinson's. She feels her pain is present all throughout the day, even when sitting down and resting. It is notably worse with standing and ambulation. Imaging: Previous MRI ordered by Dr. Bernard in 2023 showed [id number] L4-5 spinal stenosis and L5-S1 left lateral recess stenosis. Newer MRI imaging from April 2025 shows improved lateral recess stenosis at L5-S1, when compared to imaging from 2023. No other notable changes. Exam: Ashly has full 5/5 strength of her upper and lower extremities. She reports sensational deficits to light touch over her left lower extremity compared to the right. (-) bilateral straight leg raise. (-) Zelaya's. (-) clonus. Plan: Given that Ashly's pain remains primarily low back pain, and she reports only numbness over the left lower extremity with no radicular shooting pain, my recomendation regarding surgical intervention remains the same as Dr. Bernard during her last evaluation. I do not believe her MRI imaging warrants surgical intervention. The nerve compression overall seems to be improving. Her left leg numbness is likely due to nerve damage as a result of her initial disc herniation. I do not believe this would improve with surgery. She is not a good candidate for lumbar fusion, given her severe osteoporosis seen by Dr. Bernard on CT scan imaging during her last visit, and new new disclosure of Parkinson's (the rigidity in Parkinson's patients makes lumbar fusion extremely difficult, and there is a high likelihood of the screws pulling out due to this). I would like to refer the patient to our colleagues at [facility] for evaluation of SCS. She does report she has had a pain pump in the past placed by Dr. Joseph here at [facility] pain management (states it has since been removed) but requested to see a different thoracic medicine specialist. Leland Bernard MD,PhD [facility] Orders: Referrals Pain Management Referral M54.50 - Low back pain, unspecified Coding Level of Care Code Est Pt Level 3 (39373) Diagnoses Lumbago M54.50
[2025-07-12 10:01] VITALS: BMI 36.4
== END 2025-07-12 11:55 | disposition home or self-care (01) ==
LOC: HO.HNS 09:31
PROVIDERS: PCP Physician Assistant; Referring Provider Physician Assistant; Visit Provider Physician Assistant
DX: M54.50 Low back pain, unspecified (principal)
CPT/HCPCS: 99213

== ENCOUNTER → 2025-07-12 09:30 | Outpatient (BNVA) | payer OTHER, SELFPAY | PROVIDERS: PCP Physician Assistant; Referring Provider Physician Assistant; Visit Provider Physician Assistant | DX: M54.50 Low back pain, unspecified (principal); R20.2 Paresthesia of skin | CPT/HCPCS: 99212 ==

== ENCOUNTER 2025-07-15 15:17 | Outpatient (AMB) | payer OTHER, SELFPAY ==
--- NOTE | 2025-07-15 15:32 | A.OFFPC_ITS ---
Vital Signs 07/15/25 15:33 Height 5 ft 2 in Weight 187 lb 6.287 oz BMI 34.3 BP 162/88 H Blood Pressure Location Rt brachial Position Sitting Respiration 18 Pulse 83 Pulse Source Pulse Oximeter Temp 97.3 F Temp Source Temporal Artery Scan Pulse Oximetry (%) 95 Oxygen Delivery Method Room Air Intake Visit Reasons: left leg swelling Model And Mold Maker Required: No Accompanied by: Self / Same As Patient Allergies cat dander (CATS) Allergy (Mild, Verified 07/24/25 21:01) HAYFEVER Chocolate Allergy (Mild, Verified 07/24/25 21:01) HEADACHES dog dander (DOGS) Allergy (Mild, Verified 07/24/25 21:01) HAYFEVER Environmental Allergy (Mild, Uncoded 07/24/25 21:01) HAYFEVER yellow jackets Allergy (Uncoded 07/24/25 21:01) Anaphylaxis Medication List - Last Reconciled 07/15/25 by DARYN Strauss acetaminophen ER (Tylenol Arthritis Pain) 650 mg PO Q12H 30 days [adult pullups As directed] albuterol sulfate 90 mcg/actuation (Ventolin HFA) 2 puffs inhalation QID PRN 30 days alendronate (Fosamax) 70 mg PO QWEEK 12 weeks apixaban (Eliquis) 5 mg PO BID 90 days B complex and C 20-folic acid 1 mg (Wescaps) 1 cap PO DAILY 90 days back brace As directed baclofen 20 mg (2 x 10 mg) PO BEDTIME 90 days [bed pads As directed] betamethasone dipropionate 0.05% 1 appl topical DAILY PRN 4 weeks cane As directed cholecalciferol (vitamin D3) 50 mcg PO DAILY 90 days clonazepam 0.5 mg PO BID compr.stocking,knee,long,large As directed desvenlafaxine succinate ER 50 mg PO DAILY diaper,brief,adult,disposable As directed diclofenac sodium 1% 4 grams topical QID 30 days diphenhydramine HCl (Banophen) 25 mg PO Q8H 90 days [disposable face masks As directed] disposable gloves As directed doxycycline hyclate 100 mg PO BID 10 days epinephrine (EpiPen 2-Kamaljit) 0.3 mg (0.3 mL) IM ONCE PRN 30 days [EXERCISE BIKE As directed] fluticasone furoate-vilanterol 200-25 mcg/dose (Breo Ellipta) 1 inh inhalation DAILY 30 days movuvwurnqb-xymcikdtk-kjgkyyjz 200-62.5-25 mcg (Trelegy Ellipta) 1 inh inhalation DAILY 30 days folic acid 1 mg PO DAILY 90 days furosemide 20 mg PO DAILY 90 days Held on 06/21/25. Instructions: Doctor's Order gabapentin 400 mg PO DAILY 30 days humidifiers (Cool Mist Humidifier) As directed incontinence pad, liner, disp As directed [Left wrist splint As directed] leg brace (Knee Support Brace) Need for mule packer left knee brace with medial support lidocaine 5% 1 patch topical DAILY 30 days lisinopril 2.5 mg PO DAILY 90 days loperamide 2 mg PO Q8H PRN 7 days magnesium oxide 400 mg PO BEDTIME 90 days miscellaneous medical supply 1 ea miscellaneous DAILY 99 days montelukast 10 mg PO DAILY 90 days omeprazole 20 mg PO DAILY 90 days primidone 100 mg (2 x 50 mg) PO TID 3 months MDD 600mg [round raised toilet seat As directed] [soft neck brace As directed] [Soft TLSO with shoulder straps As directed] topiramate 200 mg PO BID 90 days tramadol 50 mg PO BID PRN 10 days walker (Ultra-Light Rollator misc) As directed zolpidem 5 mg PO BEDTIME Tobacco use date assessed: 07/15/25 Fall risk assessment: 2 + Falls in past year Last assessed Fall Risk: 07/15/25 Dental Screening Dental Screen Date: 07/15/25 Did you have a dental visit in the last 12 months?: No Did you have a dental problem in the last 6 months where you did not have access to dental care?: No Was dental information given to patient?: Patient has dentist HPI left leg swelling HPI Details The patient swelling resolves, reports that she stayed in bed yesterday and was able to get her compression stockings on. Lungs are clear. Furosemide was placed on hold due low sodium of 122. Bp elevated, reports that she forgot to take her lisinopril today and she is getting dizzy when she bends over, but she has not eaten all day. c/o left ankle old injury [facility] Medical History Vitamin B12 deficiency Hx of deep venous thrombosis Microcytic anemia COPD with emphysema Prerenal azotemia Toxic metabolic encephalopathy Transaminitis Allergies Chronic allergic rhinitis Asthma-COPD overlap syndrome COPD exacerbation COVID-19 History of abnormal cervical Pap smear Spinal stenosis, cervical region Peripheral polyneuropathy Spondylosis of cervical spine Spondylosis of lumbar spine Cocaine abuse Alcohol abuse Hepatitis Heart murmur History of cocaine abuse History of heroin abuse Hydradenitis Former cigarette smoker Recovering alcoholic GERD (gastroesophageal reflux disease) Lumbago with sciatica, left side Arthritis Back pain On anticoagulant therapy DVT (deep venous thrombosis) History of celiac disease Anxiety Panic attacks Depression PTSD (post-traumatic stress disorder) Parkinson disease History of frequent headaches Asthma Surgical History H/O excision of ganglion cyst Hx of esophagogastroduodenoscopy History of carpal tunnel surgery of left wrist Hx of nasal septoplasty History of hemorrhoidectomy Hx of colonoscopy Family History Mother No problems noted. Social History Housing: Apartment Are you a primary hospice care sales consultant to a significant other at home: No Do you presently have visiting nurse or other home services: Yes Alcohol intake: former Year quit: 2003 Comment: was seen at [facility]-called for note Patient Tobacco Use Status: Current everyday Tobacco user Tobacco use type: Cigarette Cigarette Packs Per Day: 1 Cigarettes Per Day: 20 Years Smoked: 45 e-Cigarette/Vaping Use: Former Use Second Hand Smoke Exposure: Yes service: No Current occupational status: disabled Cognitive needs: Yes (back brace) Hearing needs: No Vision needs: Yes Questionnaire PHQ-9 Over the last 2 weeks, how often have you been bothered by any of the following problems? 1. Little interest or pleasure in doing things: nearly every day 2. Feeling down, depressed, or hopeless: nearly every day 3. Trouble falling or staying asleep, or sleeping too much: not at all 4. Feeling tired or having little energy: not at all 5. Poor appetite or overeating: nearly every day 6. Feeling bad about yourself - or that you are a failure or have let yourself or your family down: not at all 7. Trouble concentrating on things, such as reading the newspaper or watching television: not at all 8. Moving or speaking so slowly that other people could have noticed. Or the opposite - being so fidgety or restless that you have been moving around a lot more than usual: not at all 9. Thoughts that you would be better off or of hurting yourself in some way: not at all Total score: 9 Depression Screening Interpretation: Positive Depression Screening Follow-up: Existing condition and In treatment Depression Screening Done: Yes Source: Developed by Drs. Boris Garcia, Qian Bullard, Hector Herzog and colleagues, with an educational miguel a from [employer]. Thrive Questionnaire Date Thrive assessed: 07/15/25 I am a: Patient What is your living situation today?: I have a steady place to live Within the past 12 months, did the food you bought not last and you didn't have the money to get more?: Never true Within the past 12 months, did you worry whether your food would run out before you got money to buy more?: Never true Do you have trouble paying for medicines?: No Do you have trouble getting transportation to medical appointments?: No Do you have trouble paying your heating and electricity bill?: No Do you have trouble taking care of your child, family member or friend?: No Do you have trouble with day-to-day activities such as bathing, preparing meals, shopping, managing finances, etc.?: Yes Are you currently unemployed and looking for a job?: No Are you interested in more education?: Yes Please select the resources that you would like help with: None Currently or been in a relationship where the following occur: No concerns reported THRIVE Score: 0 AUDIT C Alcohol Use Questionnaire (AUDIT-C) 1. How often do you have a drink containing alcohol?: Never Total Score: 0 LUISA-7 AMB Questionnaire LUISA-7 Date LUISA - 7 assessed: 07/15/25 Feeling nervous, anxious, or on edge: 0 = Not at all Not being able to stop or control worryin = Not at all Worrying too much about different things: 0 = Not at all Trouble relaxin = Not at all Being so restless that it is hard to sit still: 2 = More than half the days Becoming easily annoyed or irritable: 0 = Not at all Feeling afraid as if something awful might happen: 0 = Not at all Total LUISA-7 score (0-4 normal; 5-9 mild; 10-14 moderate; 15-21 severe): 2 Source: Developed by Drs. Boris Garcia, Qian Bullard, Hector Herzog and colleagues, with an educational miguel a from [employer]. Review of Systems Const Denies body aches, Denies chills, Denies fever(s), Denies headache(s) and Denies poor appetite Eyes Reports no additional complaints ENT Denies dysphagia, Reports dizziness (today, reports that she did not eat all day), Denies headache(s) and Denies odynophagia Card Denies chest pain, Denies syncope, Denies edema, Denies irregular heart rhythm, Reports leg edema (resolved with leg elevation and compression stockings), Denies lightheadedness and Denies dyspnea Resp Denies cough and Denies dyspnea GI Denies abdominal pain, Denies constipation, Denies dysphagia, Denies diarrhea, Denies nausea, Denies odynophagia and Denies vomiting Reports no additional complaints Musc Reports arthralgias (left ankle instability) and Reports numbness (left foot) Skin/Breast Reports system reviewed and no additional complaints, except as documented Neuro Reports dizziness (today, reports that she did not eat all day), Denies syncope, Denies headache(s) and Reports numbness (left foot) Psych Reports no additional complaints Physical exam (Primary Care) Vital Signs: Last Vital Signs Temp 97.3 F 07/15/25 15:33 Pulse 83 07/15/25 15:33 Resp 18 07/15/25 15:33 BP 162/88 H 07/15/25 15:33 Pulse Ox 95 07/15/25 15:33 Oxygen Delivery Method Room Air 07/15/25 15:33 BMI result Body Mass Index 34.3 Tobacco/Smoking Status: Tobacco use Status Tobacco use date assessed 07/15/25 07/15/25 15:46 Patient Tobacco Use Status Current everyday Tobacco 07/15/25 15:46 Tobacco use type Cigarette 07/15/25 15:46 e-Cigarette/Vaping Use Former Use 07/15/25 15:46 PHQ-9: PHQ-9 Score PHQ-9: Total score 9 08/28/25 16:16 Depression Screening Interpretation: Positive Depression Screening Follow-up: Existing condition and In treatment Thrive Assessment: Date of Thrive Assessment Date Thrive assessed 07/15/25 07/15/25 15:46 Currently or been in a relationship where the following occur: No concerns reported Const General: cooperative, healthy appearing, comfortable and no acute distress Orientation/consciousness: patient oriented x3 HENMT Head: Yes normocephalic Ears: hearing grossly normal bilaterally General nose exam: Normal external nose present Eyes General: appearance normal, both eyes and all related structures Conjunctivae: conjunctivae normal Neck Neck: Yes full ROM and Yes no lymphadenopathy Resp Effort & Inspection: normal respiratory effort Auscultation: clear to auscultation bilaterally, no crackles, no rales, no rhonchi and no wheezes Cardio Rate: regular rate Rhythm: regular rhythm Heart sounds: Murmur heart sound present systolic GI Palpation (GI): Soft to palpation and nontender Auscultation: normal bowel sounds General: Yes no CVA tenderness Back/Spine/Pelvis Back: no CVA tenderness Skin General skin exam: no rashes or lesions noted Neuro General: patient oriented x3 Gait exam (Neuro): Normal gait present Extrem General: Yes normal to inspection, Yes full ROM and No edema Right lower extremity: full ROM; no edema Left lower extremity: full ROM and ankle Details: no tenderness and no swelling; no edema Psych Affect: normal affect Attitude: cooperative Insight: Good insight present (Psych) Judgement: Good judgement present (Psych) Coding Level of Care Code Est Pt Level 3 (20751) Diagnoses Primary hypertension I10 Hypertension type: primary hypertension Hyponatremia E87.1 Closed nondisplaced fracture of lateral malleolus of left fibula with routine healing, subsequent encounter S82.65XD Encounter type: subsequent encounter Fracture type: closed Fracture alignment: nondisplaced Laterality: left Fracture healing: with routine healing Left leg swelling M79.89 Right leg swelling M79.89 Dizziness R42 Time Spent (min) 34 Assessment & Plan Assessment & Plan (1) HTN (hypertension): Code(s): I10 - Essential (primary) hypertension Category: Medical Qualifiers: Hypertension type: primary hypertension Qualified Code(s): I10 - Essential (primary) hypertension Plan: Blood pressure 162/88-reports that she did not take her lisinopril to the. Encouraged medication compliance. (2) Hyponatremia: Code(s): E87.1 - Hypo-osmolality and hyponatremia Category: Medical Plan: lasix was placed on hold due to NA++ 122, rechecked at 137, continue holding Lasix, monitor your fluid intake (3) Lateral malleolar fracture: Code(s): S82.63XA - Displaced fracture of lateral malleolus of unspecified fibula, initial encounter for closed fracture Category: Medical Qualifiers: Encounter type: subsequent encounter Fracture type: closed Fracture alignment: nondisplaced Laterality: left Fracture healing: with routine healing Qualified Code(s): S82.65XD - Nondisplaced fracture of lateral malleolus of left fibula, subsequent encounter for closed fracture with routine healing Plan: Remote left ankle fx that the patient had refused to wear to boot and was casted. She still c/o For ankle instability, the patient is advised to wear supportive footwear to provide stability and prevent further injury. No surgical intervention is planned at this time due to the chronic nature of the condition. (4) Left leg swelling: Code(s): M79.89 - Other specified soft tissue disorders Category: Medical Plan: The plan for peripheral edema includes advising the patient to continue using compression stockings to manage swelling. The patient is also encouraged to monitor her fluid intake and maintain a low-sodium diet to prevent fluid retention. (5) Right leg swelling: Code(s): M79.89 - Other specified soft tissue disorders Category: Medical Plan: The plan for peripheral edema includes advising the patient to continue using compression stockings to manage swelling. The patient is also encouraged to monitor her fluid intake and maintain a low-sodium diet to prevent fluid retention. (6) Dizziness: Code(s): R42 - Dizziness and giddiness Category: Medical Plan: Patient reports that she did not eat all day. Encouraged the patient to eat at least 3 balance meals daily. Continue to monitor and contact the office if symptoms continues.
[2025-07-15 15:33] VITALS: BP 162/88; PULSE 83; RESP 18; TEMP 36.3; O2SAT 95; BMI 34.3
--- OUTSIDE RECORDS SUMMARY | 2025-07-15 15:51 | XMS_ITS | Patient Health Record ---
Author Organization [facility] Address [address] [place] [address] Care Team Providers Care Electrotype Molder Name Role Phone Sudhir Martin Primary Care Provider Boris Whitmore Unavailable [phone] Allergies Allergen (clinical drug ingredient) Drug/Non Drug [...] Problem Status W/U Status Risk Notes Problem 140000037 Encounter for screening for malignant neoplasm of colon (Z12.11) Active confirmed Problem 810263192 History of adenomatous polyp of colon (Z86.010) Active confirmed Problem 94089773 Diarrhea (R19.7) Active confirmed Problem 55471609 Weight loss (R63.4) Active confirmed Problem 774281406 Celiac disease (K90.0) Active confirmed Problem 54636453 Constipation, unspecified constipation type (K59.00) Active confirmed Problem 473620358 Positive autoantibody screening for celiac disease (R76.8) Active confirmed Problem 27611902 Diarrhea, unspecified type (R19.7) Active confirmed Plan [...] Name:Boris Kimbrough Joni , 11/02/2025 09:30:00 AM, [address] [place] [address], [address], [place], [address], Insurance Providers Payer Name Payer Address Payer Phone Subscriber Number Group Number Insured Name Patient Relationship to Insured Coverage Start Date Coverage End Date [facility] [address] [address] [place], [place] [id number] [employer] Self - patient is the [...]
== END 2025-07-25 21:07 | disposition home or self-care (01) ==
LOC: HO.HMCH 15:17
PROVIDERS: PCP Physician Assistant
DX: I10 Essential (primary) hypertension (principal); E87.1 Hypo-osmolality and hyponatremia; S82.65XD Nondisplaced fracture of lateral malleolus of left fibula, subsequent encounter for closed fracture with routine healing; M79.89 Other specified soft tissue disorders; R42 Dizziness and giddiness

== ENCOUNTER → 2025-07-15 15:17 | Outpatient (BNVA) | payer OTHER, SELFPAY | PROVIDERS: PCP Physician Assistant | DX: I10 Essential (primary) hypertension (principal); E87.1 Hypo-osmolality and hyponatremia; M79.89 Other specified soft tissue disorders; R42 Dizziness and giddiness; S82.65XD Nondisplaced fracture of lateral malleolus of left fibula, subsequent encounter for closed fracture with routine healing; X58.XXXD Exposure to other specified factors, subsequent encounter | CPT/HCPCS: 99212 ==

== ENCOUNTER 2025-07-24 20:47 | Emergency (ER) | payer OTHER, SELFPAY ==
--- NOTE | ~2025-07-24 | XR_ITS ---
CLINICAL HISTORY: chest wall pain 1 view chest x-ray Comparison: CR/SR - XR CHEST 2V - 07/30/2024 02:08 PM EDT Findings: Left basilar subsegmental atelectasis or infiltrate. Normal size heart. No acute fracture. IMPRESSION: Left basilar subsegmental atelectasis or infiltrate. This document has been electronically signed by: Stephen Damon MD, PHD on 07/25/2025 01:17:26
--- NOTE | ~2025-07-24 | US_ITS ---
CLINICAL HISTORY: swelling legs Venous duplex ultrasound bilateral lower extremity Comparison: US/SR - US LOWER EXTREMITY VEINS LIMITED FOLLOW UP LEFT - 11/04/24 14:22 EST Findings: Right: The visualized deep veins are fully compressible with normal Doppler color flow and spectral tracings. Left: Peripheral wall thickening of the left common and superficial femoral veins, similar to 11/04/2024. Remaining visualized veins of the left lower extremity are normally compressible with color flow. Evaluation of the left peroneal vein is limited due to depth of the vessel. No popliteal cyst. IMPRESSION: 1. Chronic wall thickening of left common femoral and superficial femoral veins, grossly unchanged since 11/04/2024 reflecting prior DVT 2. No acute deep vein thrombosis of bilateral lower extremities. This document has been electronically signed by: Stephen Damon MD, PHD on 07/25/2025 00:17:37
--- NOTE | ~2025-07-24 | CT_ITS ---
CLINICAL HISTORY: trauma on eliquis back pain rt hip pain CT abdomen and pelvis with contrast Comparison: None provided Findings: Dependent changes are present within the lungs. Linear left basilar subsegmental atelectasis or pleural-parenchymal scarring is present. No focal hepatic lesion. Gallbladder, pancreas and spleen are within normal limits. Adrenal glands are unremarkable. Kidneys enhance symmetrically and are non hydronephrotic. No bowel obstruction, pneumoperitoneum, or pneumatosis. The appendix is not visualized. No acute fracture. IMPRESSION: No acute findings. This document has been electronically signed by: Stephen Damon MD, PHD on 07/25/2025 01:41:07
--- NOTE | ~2025-07-24 | CT_ITS ---
CLINICAL HISTORY: no fx CT cervical spine without contrast Comparison: 07/05/2025 Findings: There is straightening of the normal cervical lordosis. Degenerative changes are moderate with disc height loss, endplate sclerosis and disc osteophyte complex formation. No acute fractures or dislocations. Visualized intracranial contents are unremarkable. No cervical fluid collections or masses. No consolidation or effusion at the lung apices. Atherosclerotic carotid bulb calcifications are present. IMPRESSION: No acute findings. This document has been electronically signed by: Stephen Damon MD, PHD on 07/25/2025 01:53:25
--- NOTE | ~2025-07-24 | CT_ITS ---
CLINICAL HISTORY: trauma CT head without contrast Comparison: CT/SR - CT HEAD WITHOUT IV CONTRAST - 07/05/25 15:15 EDT Findings: No intra-axial mass, midline shift, hydrocephalus, or acute hemorrhage. Bilateral caudate head lacunar infarcts noted. Nonspecific white matter hypodensities are present with mild volume loss. There is mucosal thickening within the left sphenoid sinus and bilateral frontal sinuses, as well as opacification of ethmoid air cells. Mastoid air cells are clear. The orbits are within normal limits. No skull fracture. IMPRESSION: 1. No acute intracranial findings. This document has been electronically signed by: Stephen Damon MD, PHD on 07/25/2025 01:28:08
[2025-07-24 20:54] VITALS: BP 138/80; PULSE 84; O2SAT 98
[2025-07-24 20:56] VITALS: BP 122/61; PULSE 71; RESP 18; TEMP 36.8; O2SAT 95; BMI 39.4
[2025-07-24 20:59] VITALS: BP 122/61; PULSE 79
--- NOTE | 2025-07-24 21:01 | ECG_ITS ---
Test Reason : BACK PAIN Blood Pressure : */* mmHG Vent. Rate : 77 BPM Atrial Rate : 77 BPM P-R Int : 176 ms QRS Dur : 74 ms QT Int : 382 ms P-R-T Axes : 49 29 39 degrees QTcB Int : 432 ms Normal sinus rhythm Normal ECG When compared with ECG of 06-Jun-2025 19:15, No significant change was found Referred By: Generic ED Physician Electronically Signed By: ROMELIA LEAL MD
[2025-07-24 21:28] LABS: MANUAL DIFF FLAG NO
[2025-07-24 21:29] LABS: Hematocrit 28.2 % (37.0-47.0); Hemoglobin 9.8 g/dl (12.0-16.0); Imm Gran Abs Auto 0.05 X10*3/uL (0.00-0.03); Imm Gran Pct Auto 0.6 % (0.0-0.4); Lymphocytes Absolute Auto 1.9 X10*3/uL (1.2-4.9); Mean Corpuscular HGB Conc 34.8 g/dl (31.0-35.0); Mean Corpuscular Hemoglobin 32.8 pg (27.0-33.0); Mean Corpuscular Volume 94.3 fL (80.0-98.0); NRBC Abs Auto 0.000 X10*3/uL (0.0-0.012); NRBC Pct Auto 0.0 /100WBC (0.0-0.2); Platelet Count 199 X10*3/uL (160-400); Red Blood Count 2.99 X10*6/uL (4.20-5.50); White Blood Count 8.4 X10*3/uL (4.8-10.8)
--- OUTSIDE RECORDS SUMMARY | 2025-07-24 21:34 | XMS_ITS | Patient Health Record ---
Author Organization [facility] Address [address] [place] [address] Care Team Providers Care Fuse Coiler Name Role Phone Sudhir Martin Primary Care Provider Boris Whitmore Unavailable [phone] Allergies Allergen (clinical drug ingredient) Drug/Non Drug [...] Problem Status W/U Status Risk Notes Problem 919778631 Encounter for screening for malignant neoplasm of colon (Z12.11) Active confirmed Problem 525935202 History of adenomatous polyp of colon (Z86.010) Active confirmed Problem 44746183 Diarrhea (R19.7) Active confirmed Problem 61493021 Weight loss (R63.4) Active confirmed Problem 460589953 Celiac disease (K90.0) Active confirmed Problem 46908812 Constipation, unspecified constipation type (K59.00) Active confirmed Problem 852498802 Positive autoantibody screening for celiac disease (R76.8) Active confirmed Problem 32128895 Diarrhea, unspecified type (R19.7) Active confirmed Plan [...] Name:Boris Kimbrough Joni , 11/02/2025 09:30:00 AM, [address] [place] [address], [address], [place], [address], Insurance Providers Payer Name Payer Address Payer Phone Subscriber Number Group Number Insured Name Patient Relationship to Insured Coverage Start Date Coverage End Date [facility] [address] [address] [place], [place] [id number] [employer] Self - patient is the insured Medical (General) History Medical History History ICD Code COPD/asthma Denies ME,DM,CVA,renal disease C.difficile in 2008--negative stool spec imens [...]
--- NOTE | 2025-07-24 21:36 | ED_ITS ---
HPI - General Adult General Chief complaint: Back Pain/Injury Stated complaint: back/chest pain Time Seen by Provider: 07/24/25 21:21 Source: patient and EMS Mode of arrival: EMS History of Present Illness HPI narrative: This is a 64 years old the patient with multiple medical problems which include DVT, COPD, spinal stenosis peripheral neuropathy history of frequent fall presented to emergency room by ambulance stating that she fell a week ago and now she is complaining of lower back pain right hip pain. She did not know seek medical attention in the date of the fall. She is also complaining of chest pain which is not exertional without radiation Onset (ago): week(s) (1) Location: back and lower extremity (Right hip) Radiation: back Severity: moderate Pain Consistency: constant Exacerbating factors: none Associated symptoms: denies other symptoms Related Data Home Medications ?Medication ?Instructions ?Recorded ?Confirmed clonazepam 1 mg tablet 0.5 mg PO BID 10/31/2207/15 desvenlafaxine succinate 50 mg 50 mg PO DAILY 07/30/24 07/15/25 tablet,extended release 24 hr zolpidem 10 mg tablet 5 mg PO BEDTIME 10/26/24 Previous Rx's ?Medication ?Instructions ?Recorded disposable gloves #1,000 ea 04/02/23 diaper,brief,adult,disposable #120 ea 05/20/23 cane #1 ea 11/13/23 back brace #1 ea 12/02/23 soft neck brace #1 ea 12/02/23 incontinence pad, liner, disp #200 ea 02/19/24 albuterol sulfate 90 mcg/actuation 2 puff inhalation Q ID PRN 03/24/24 aerosol inhaler (Ventolin HFA) shortness of breath or wheezing 30 days #18 grams disposable face masks #1 ea 03/26/24 fluticasone fur. 200 mcg-umeclid 1 inh inhalation BAHMAN Y 30 days #60 03/26/24 62.5 mcg-vilant 25 mcg ea inhalat.powder (Trelegy Ellipta) fluticasone furoate 200 1 inh inhalation DAILY 30 da ys #60 04/06/24 mcg-vilanterol 25 mcg/dose ea inhalation powder (Breo Ellipta) diphenhydramine HCl 25 mg capsule 25 mg PO Q8H allergi es 90 days 06/23/24 (Banophen) #270 caps round raised toilet seat #1 ea 07/09/24 humidifiers (Cool Mist Humidifier) #1 ea 11/30/24 furosemide 20 mg tablet 20 mg PO DAILY 90 days #90 t abs 12/21/24 Held on 06/21/25. Instructions: Doctor's Order EXERCISE BIKE #1 ea 02/01/25 bed pads #120 ea 02/03/25 Soft TLSO with shoulder straps #1 ea 03/04/25 epinephrine 0.3 mg/0.3 mL 0.3 mg (0.3 mL) IM ONCE PRN 03/25/25 injection, auto-injector (EpiPen anaphylaxis 30 days # 2 ea 2-Kamaljit) walker (Ultra-Light Rollator misc) #1 ea 03/26/25 leg brace (Knee Support Brace) #1 ea 03/31/25 adult pullups #300 ea 04/19/25 Left wrist splint #1 ea 05/17/25 apixaban 5 mg tablet (Eliquis) 5 mg PO BID 90 days #18 0 tabs 05/25/25 gabapentin 400 mg capsule 400 mg PO DAILY 30 days #30 caps 05/25/25 primidone 50 mg tablet 100 mg (2 x 50 mg) PO TID RL S 3 05/25/25 months #540 tabs doxycycline hyclate 100 mg capsule 100 mg PO BID 10 da ys #20 caps 06/21/25 diclofenac sodium 1 % topical gel 4 g topical QID 30 d ays #100 grams 07/02/25 acetaminophen 650 mg 650 mg PO Q12H 30 days #60 t abs 07/08/25 tablet,extended release (Tylenol Arthritis Pain) alendronate 70 mg tablet (Fosamax) 70 mg PO QWEEK 12 w eeks #12 tabs 07/08/25 baclofen 10 mg tablet 20 mg (2 x 10 mg) PO BEDTIME 90 07/08/25 days #180 tabs betamethasone dipropionate 0.05 % 1 appl topical DAILY PRN skin 07/08/25 topical cream irritation 4 weeks #45 grams cholecalciferol (vitamin D3) 50 50 mcg PO DAILY 90 day s #90 caps 07/08/25 mcg (2,000 unit) capsule compr.stocking,knee,long,large #2 ea 07/08/25 folic acid 1 mg tablet 1 mg PO DAILY 90 days #90 ta bs 07/08/25 lisinopril 2.5 mg tablet 2.5 mg PO DAILY 90 days #90 tabs 07/08/25 magnesium oxide 400 mg PO BEDTIME 90 days #9 0 caps 07/08/25 miscellaneous medical supply 1 ea miscellaneous DAILY 99 days 07/08/25 #1 ea montelukast 10 mg tablet 10 mg PO DAILY 90 days #90 t abs 07/08/25 omeprazole 20 mg capsule,delayed 20 mg PO DAILY 90 day s #90 caps 07/08/25 release topiramate 200 mg tablet 200 mg PO BID 90 days #180 t abs 07/08/25 vitamin B complex and vitamin C 1 cap PO DAILY 90 days #90 caps 07/09/25 no.20-folic acid 1 mg capsule ([facility]) lidocaine 5 % topical patch 1 patch topical DAILY 30 d ays #30 07/20/25 ea tramadol 50 mg tablet 50 mg PO BID PRN pain 10 day s #20 07/22/25 tabs loperamide 2 mg capsule 2 mg PO Q8H PRN loose stool 7 days 07/24/25 #21 caps Allergies Allergy/AdvReac Type Severity Reaction Status Date / Time cat dander (CATS) Allergy Mild HAYFEVER Verified 07/24/25 21:01 Chocolate Allergy Mild HEADACHES Verified 07/24/25 21:01 dog dander (DOGS) Allergy Mild HAYFEVER Verified 07/24/25 21:01 Environmental Allergy Mild HAYFEVER Uncoded 07/24/25 21:01 yellow jackets Allergy Anaphylaxis Uncoded 07/24/25 21:01 Review of Systems 2 Constitutional: Constitutional: Reports no additional constitutional complaints Cardiovascular: Cardiovascular: Reports no additional cardiovascular complaints Musculoskeletal: Musculoskeletal: Reports as per [facility] Past Medical History Attestation statement: The following information was validated with the patient. Medical History Vitamin B12 deficiency Hx of deep venous thrombosis Microcytic anemia COPD with emphysema Prerenal azotemia Toxic metabolic encephalopathy Transaminitis Allergies Chronic allergic rhinitis Asthma-COPD overlap syndrome COPD exacerbation COVID-19 History of abnormal cervical Pap smear Spinal stenosis, cervical region Peripheral polyneuropathy Spondylosis of cervical spine Spondylosis of lumbar spine Cocaine abuse Alcohol abuse Hepatitis Heart murmur History of cocaine abuse History of heroin abuse Hydradenitis Former cigarette smoker Recovering alcoholic GERD (gastroesophageal reflux disease) Lumbago with sciatica, left side Arthritis Back pain On anticoagulant therapy DVT (deep venous thrombosis) History of celiac disease Anxiety Panic attacks Depression PTSD (post-traumatic stress disorder) Parkinson disease History of frequent headaches Asthma Surgical History H/O excision of ganglion cyst Hx of esophagogastroduodenoscopy History of carpal tunnel surgery of left wrist Hx of nasal septoplasty History of hemorrhoidectomy Hx of colonoscopy Family History Family History Mother No problems noted. Social History Social History Housing: Apartment Are you a primary manager wound care to a significant other at home: No Do you presently have visiting nurse or other home services: Yes Alcohol intake: former Year quit: 2003 Comment: was seen at [facility]-called for note Patient Tobacco Use Status: Current everyday Tobacco user Tobacco use type: Cigarette Cigarette Packs Per Day: 1 Cigarettes Per Day: 20 Years Smoked: 45 e-Cigarette/Vaping Use: Former Use Second Hand Smoke Exposure: Yes service: No Current occupational status: disabled Cognitive needs: Yes (back brace) Hearing needs: No Vision needs: Yes Physical Exam ED Exam Exam: Patient is awake and alert in no distress she has stable vital signs Vital Signs: Vital Signs - 24 hr 07/24/25 20:56 07/24/25 20:59 07/24/25 23:35 Temperature 98.3 F 98.3 F Pulse Rate 71 79 70 Respiratory Rate 18 14 Blood Pressure 122/61 122/61 117/62 Pulse Oximetry 95 97 Oxygen Delivery Method Room Air Room Air 07/25/25 00:35 07/25/25 02:12 07/25/25 02:21 Temperature 97.9 F 97.9 F Pulse Rate 65 66 66 Respiratory Rate 15 16 16 Blood Pressure 123/64 117/69 117/69 Pulse Oximetry 94 99 99 Oxygen Delivery Method Room Air Room Air Room Air BMI result Body Mass Index 39.4 Const General: cooperative and comfortable Nutritional Appearance: well nourished Orientation/consciousness: patient oriented x3 HENMT Head: Yes normal to inspection General nose exam: Normal external nose present Mouth: Normal oral and palatal mucosa present Neck Neck: Yes normal visual inspection Chest Chest palpation & inspection: normal inspection of the chest Resp Effort & Inspection: normal respiratory effort Auscultation: clear to auscultation bilaterally Cardio Jugular venous distension: no JVD Rate: regular rate Rhythm: regular rhythm GI Inspection: Yes normal to inspection Palpation (GI): Soft to palpation, not firm and nontender Back/Spine/Pelvis Other: Tenderness in the LS spine no deformity Neuro General: patient oriented x3 Extrem Other: Extremity edema noted left more than right Course Reevaluation(s) Reevaluation #1: We are waiting for the result of the ct scan as now no result Time: 01:23 Reevaluation #2: CT negative anticipate discharge, at this point she is ambulatory she is walking ED she can be discharged chronic back pain she is followed by the spine service Time: 02:08 Medications Administered Discontinued Medications Generic Name Dose Route Start Last Admin Trade Name Freq PRN Reason Stop Dose Admin Iohexol 85 ml 07/24/25 23:06 07/24/25 23:14 Iohexol 350 Mg/Ml 100 Ml Infus..Btl IV 07/24/25 23:07 85 ml ONCE ONE Administration Oxycodone HCl 5 mg 07/25/25 01:19 07/25/25 01:24 Oxycodone Hcl Immed Release 5 Mg Tablet PO 07/25/25 01:20 5 mg ONCE ONE Administration Medical Decision Making Medical Decision Making [facility] Narrative: Patient is here after a fall a week ago complaining of back pain right hip pain we will obtain imaging given the fact that she is on Eliquis we will do a head CT as well Differential Diagnosis Differential Diagnoses: The differential diagnosis associated with the presentation includes Lab Data [facility] Lab Attestation statement: I reviewed the patient's lab results. 07/24/25 21:19 07/24/25 21:19 Labs: Lab Results 07/24/25 Range/Units 21:19 WBC 8.4 (4.8-10.8) X10*3/uL RBC 2.99 L (4.20-5.50) X10*6/uL Hgb 9.8 L (12.0-16.0) g/dl Hct 28.2 L D (37.0-47.0) % MCV 94.3 (80.0-98.0) fL MCH 32.8 (27.0-33.0) pg MCHC 34.8 (31.0-35.0) g/dl RDW 14.1 (11.0-16.0) % Plt Count 199 (160-400) X10*3/uL MPV 9.6 (9.4-12.3) fL Immature Gran % (Auto) 0.6 H (0.0-0.4) % Neut % (Auto) 55.9 (45-73) % Lymph % (Auto) 22.5 (20-40) % [place] % (Auto) 16.0 H (2-11) % Eos % (Auto) 4.5 H (0-4) % Baso % (Auto) 0.5 (0-2) % Lymph # (Auto) 1.9 (1.2-4.9) X10*3/uL [place] # (Auto) 1.4 H (0.1-1.2) X10*3/uL Eos # (Auto) 0.4 (0.0-0.4) X10*3/uL Baso # (Auto) 0.0 (0.0-0.2) X10*3/uL Abs Immat Gran (auto) 0.05 H (0.00-0.03) X10*3/uL Absolute Neuts (auto) 4.7 (2.0-8.3) x10*3/uL Absolute Nucleated RBC 0.000 (0.0-0.012) X10*3/uL Nucleated RBC % (auto) 0.0 (0.0-0.2) /100WBC PT 11.5 (10.9-12.4) SEC INR 1.0 (0.9-1.1) Sodium 129 L (135-145) mmol/L Potassium 4.6 (3.3-5.1) mmol/L Chloride 99 (96-108) mmol/L Carbon Dioxide 23 (22-29) mmol/L Anion Gap 12 (12-20) BUN 14 (9-16) mg/dL Creatinine 1.26 (0.5-1.4) mg/dL Estim Creat Clear Calc 49.2 Estimated GFR 43 Random Glucose 99 (60-115) mg/dL Calcium 8.1 L (8.4-10.2) mg/dL Magnesium 2.1 (1.6-2.6) mg/dL Total Bilirubin 0.2 (0.0-1.0) mg/dL AST 22 (5-31) U/L ALT 14 (0-31) U/L Alkaline Phosphatase 83 (39-117) U/L Troponin I High Sens < 2.7 (<3.5-17.0) ng/L B-Natriuretic Peptide 59 (<100) pg/mL Total Protein 6.1 L (6.5-8.0) g/dL Albumin 3.8 (3.5-5.0) g/dL Ethyl Alcohol < 10 mg/dL COVID-19 (SUE) Negative (Negative) COVID-19 Clin Com See Note Independent Interpretation I performed an independent interpretation of an: EKG Interpretation: EKG was reviewed interpreted by me as sinus rhythm rate [address]-T changes Discharge Plan Discharge Clinical Impression: Gait disorder Back pain Qualifiers: Back pain location: low back pain Chronicity: unspecified Back pain laterality: midline Sciatica presence: without sciatica Qualified Code(s): M54.50 - Low back pain, unspecified Fall Qualifiers: Encounter type: initial encounter Qualified Code(s): W19.XXXA - Unspecified fall, initial encounter Patient Disposition: Home, Self-Care Instructions: Back Pain (ED), Fall Prevention (ED) Additional Instructions: Follow-up with your primary care physician you scan were negative return to emergency room if you worse, also follow-up with the spine service Prescriptions: No Action (DME) disposable gloves Misc See Rx Instructions .Route Qty: 1000 3RF Rx Instructions: As directed (DME) diaper,brief,adult,disposable Misc See Rx Instructions .Route Qty: 120 0RF Rx Instructions: As directed (DME) cane Device See Rx Instructions .Route Qty: 1 0RF Rx Instructions: As directed (DME) soft neck brace See Rx Instructions .Route .MEDSUPPLY Qty: 1 0RF Rx Instructions: As directed (DME) back brace Misc See Rx Instructions .Route Qty: 1 0RF Rx Instructions: As directed (DME) incontinence pad, liner, disp Pad See Rx Instructions .Route Qty: 200 1RF Rx Instructions: As directed Trelegy Ellipta 200-62.5-25 mcg blister with device 1 inh inhalation DAILY 30 Days Qty: 60 12RF (DME) disposable face masks See Rx Instructions .Route .MEDSUPPLY Qty: 1 0RF Rx Instructions: As directed fluticasone furoate-vilanterol [Breo Ellipta] 200-25 mcg/dose blister with device 1 inh inhalation DAILY 30 Days Qty: 60 11RF diphenhydramine HCl [Banophen] 25 mg capsule 25 mg PO Q8H 90 Days Qty: 270 3RF (DME) round raised toilet seat See Rx Instructions .Route .MEDSUPPLY Qty: 1 0RF Rx Instructions: As directed furosemide 20 mg tablet 20 mg PO DAILY 90 Days Qty: 90 0RF (DME) EXERCISE BIKE See Rx Instructions .Route .MEDSUPPLY Qty: 1 0RF Rx Instructions: As directed (DME) bed pads See Rx Instructions .Route .MEDSUPPLY Qty: 120 11RF Rx Instructions: As directed ([facility]) Soft TLSO with shoulder straps See Rx Instructions .Route .MEDSUPPLY Qty: 1 0RF Rx Instructions: As directed epinephrine [EpiPen 2-Kamaljit] 0.3 mg/0.3 mL auto-injector 0.3 mg IM ONCE PRN (Reason: anaphylaxis) 30 Days Qty: 2 0RF (DME) Ultra-Light Rollator Misc See Rx Instructions .Route Qty: 1 0RF Rx Instructions: As directed ([facility]) Knee Support Brace Misc See Rx Instructions .Route Qty: 1 0RF Rx Instructions: Need for mold 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 left knee brace with medial support (DME) adult pullups medium See Rx Instructions .Route .MEDSUPPLY Qty: 300 11RF Rx Instructions: As directed ([facility]) Left wrist splint See Rx Instructions .Route .MEDSUPPLY Qty: 1 0RF Rx Instructions: As directed gabapentin 400 mg capsule 400 mg PO DAILY 30 Days Qty: 30 3RF Eliquis 5 mg tablet 5 mg PO BID 90 Days Qty: 180 3RF primidone 50 mg tablet 100 mg PO TID MDD 600mg 90 Days Qty: 540 0RF Rx Instructions: take 2 -50mg tablets by mouth TID for seizure disorder diclofenac sodium 1 % gel 4 g topical QID 30 Days Qty: 100 3RF Rx Instructions: apply to single elbow, wrist or hand; for hand includes palm/fingers/back of hand Wescaps 1 mg capsule 1 cap PO DAILY 90 Days Qty: 90 1RF lidocaine 5 % adhesive patch,medicated 1 patch topical DAILY 30 Days Qty: 30 3RF Rx Instructions: leave on most painful area for up to 12 hrs tramadol 50 mg tablet 50 mg PO BID PRN (Reason: pain) 10 Days Qty: 20 0RF loperamide 2 mg capsule 2 mg PO Q8H PRN (Reason: loose stool) 7 Days Qty: 21 1RF clonazepam 1 mg tablet 0.5 mg PO BID zolpidem 10 mg tablet 5 mg PO BEDTIME albuterol sulfate [Ventolin HFA] 90 mcg/actuation HFA aerosol inhaler 2 puff inhalation QID PRN (Reason: shortness of breath or wheezing) 30 Days Qty: 18 11RF desvenlafaxine succinate 50 mg tablet extended release 24 hr 50 mg PO DAILY miscellaneous medical supply Misc 1 ea miscellaneous DAILY 99 Days Qty: 1 0RF acetaminophen [Tylenol Arthritis Pain] 650 mg tablet extended release 650 mg PO Q12H 30 Days Qty: 60 3RF alendronate [Fosamax] 70 mg tablet 70 mg PO QWEEK 84 Days Qty: 12 1RF baclofen 10 mg tablet 20 mg PO BEDTIME 90 Days Qty: 180 1RF cholecalciferol (vitamin D3) 50 mcg (2,000 unit) capsule 50 mcg PO DAILY 90 Days Qty: 90 1RF folic acid 1 mg tablet 1 mg PO DAILY 90 Days Qty: 90 3RF lisinopril 2.5 mg tablet 2.5 mg PO DAILY 90 Days Qty: 90 1RF magnesium oxide 400 mg magnesium capsule 400 mg PO BEDTIME 90 Days Qty: 90 2RF montelukast 10 mg tablet 10 mg PO DAILY 90 Days Qty: 90 1RF omeprazole 20 mg capsule,delayed release(DR/EC) 20 mg PO DAILY 90 Days Qty: 90 2RF topiramate 200 mg tablet 200 mg PO BID 90 Days Qty: 180 2RF (DME) compr.stocking,knee,long,large Misc See Rx Instructions .Route Qty: 2 0RF Rx Instructions: As directed betamethasone dipropionate 0.05 % cream 1 appl topical DAILY PRN (Reason: skin irritation) 28 Days Qty: 45 3RF (DME) humidifiers [Cool Mist Humidifier] Misc See Rx Instructions .Route Qty: 1 0RF Rx Instructions: As directed doxycycline hyclate 100 mg capsule 100 mg PO BID 10 Days Qty: 20 0RF Interventions: ED Discharge Assessment Last Done: 07/25/25 02:21 Discharge Date/Time: 07/25/25 02:22 Print Language: Malay
[2025-07-24 21:39] LABS: INTERNATIONAL NORM RATIO 1.0 (0.9-1.1); Prothrombin Time 11.5 SEC (10.9-12.4)
[2025-07-24 21:49] LABS: Alanine Aminotransferase 14 U/L (0-31); Albumin Level 3.8 g/dL (3.5-5.0); Alkaline Phosphatase 83 U/L (39-117); Anion Gap 12 (12-20); Aspartate Amino Transferase 22 U/L (5-31); Blood Urea Nitrogen 14 mg/dL (9-16); Calcium 8.1 mg/dL (8.4-10.2); Carbon Dioxide 23 mmol/L (22-29); Chloride 99 mmol/L (96-108); Creatinine Clr Calc Pharmacy 49.2; Estimated Glomerular Filt Rate 43; Magnesium 2.1 mg/dL (1.6-2.6); Potassium 4.6 mmol/L (3.3-5.1); Sodium 129 mmol/L (135-145); Total Protein 6.1 g/dL (6.5-8.0)
[2025-07-24 21:51] LABS: COVID-19 Test Negative (Negative); IDNOW Serial# 6674DD1D
[2025-07-24 21:52] LABS: B Type Natriuretic Peptide 59 pg/mL (<100)
[2025-07-24 22:01] LABS: Troponin-I High Sensitivity < 2.7 ng/L (<3.5-17.0)
[2025-07-24] MEDS: iohexoL 350 MG/ML 100 ML INFUS..BTL 85 ML IV (23:14)
[2025-07-24 23:35] VITALS: BP 117/62; PULSE 70; RESP 14; TEMP 36.8; O2SAT 97
[2025-07-25 00:35] VITALS: BP 123/64; PULSE 65; RESP 15; O2SAT 94
--- NOTE | 2025-07-25 00:39 | PC.NURSE ---
Took over care at 23:00 from ANA Hyman pt awaiting CT results to determine plan of care.
[2025-07-25] MEDS: oxyCODONE HCl Immed Release 5 MG TABLET PO (01:24)
--- NOTE | 2025-07-25 01:25 | PC.NURSE ---
pt medicated per mar.
[2025-07-25 02:12] VITALS: BP 117/69; PULSE 66; RESP 16; TEMP 36.6; O2SAT 99
--- NOTE | 2025-07-25 02:20 | PC.NURSE ---
reviewed discharge instructions with pt, pt verbalized understanding, no sign of distress upon discharge.
[2025-07-25 02:21] VITALS: BP 117/69; PULSE 66; RESP 16; TEMP 36.6; O2SAT 99
== END 2025-07-25 02:22 | disposition home or self-care (01) ==
PROVIDERS: Emergency Provider Emergency Medicine; PCP Physician Assistant
DX: M54.50 Low back pain, unspecified (principal); J44.9 Chronic obstructive pulmonary disease, unspecified; G20.A1 Parkinson's disease without dyskinesia, without mention of fluctuations; M48.061 Spinal stenosis, lumbar region without neurogenic claudication; M48.02 Spinal stenosis, cervical region; Z86.718 Personal history of other venous thrombosis and embolism; Z79.01 Long term (current) use of anticoagulants; Z91.81 History of falling; Z72.0 Tobacco use; Z79.899 Other long term (current) drug therapy
CPT/HCPCS: 36415; 70450; 71045; 72125; 74177; 80053; 80307; 83735; 83880; 84484; 85025; 85610; 87635; 93005; 93970; 99285; Q9967

== ENCOUNTER → 2025-07-24 21:01 | Outpatient (BNV) | payer OTHER, SELFPAY | PROVIDERS: Emergency Provider Emergency Medicine; PCP Physician Assistant; Visit Provider Internal Medicine Cardiovascular Disease | DX: M54.9 Dorsalgia, unspecified (principal) | CPT/HCPCS: 93010 ==

== ENCOUNTER → 2025-07-24 21:34 | Outpatient (BNV) | payer OTHER, SELFPAY | PROVIDERS: Emergency Provider Emergency Medicine; PCP Physician Assistant; Visit Provider General Practice | DX: M54.50 Low back pain, unspecified (principal); M25.551 Pain in right hip; Z04.3 Encounter for examination and observation following other accident; I82.512 Chronic embolism and thrombosis of left femoral vein; J98.11 Atelectasis; W19.XXXA Unspecified fall, initial encounter | CPT/HCPCS: 70450; 71045; 72125; 74177; 93970 ==

== ENCOUNTER 2025-07-28 12:41 | Outpatient (REF) | payer OTHER, SELFPAY ==
--- NOTE | 2025-07-28 12:45 | EMG_ITS ---
Chief complaint: Left hand numbness Reason for referral: Evaluate for Carpal Tunnel Syndrome Referred by: Fredrick OSEGUERA Procedure done: Left upper extremity NCS/EMG Precautions and/or limitations: On Eliquis The limb temperature was monitored continuously and remained between 32-36 degrees C during the performance of the NCS. Nerve Conduction Studies Anti Sensory Summary Table ?Stim Site NR Onset (ms) Norm Onset (ms) Peak (ms) Norm Peak (ms) O-P Amp (?V) Norm O-P Amp Site1 Site2 Delta-0 (ms) Dist (cm) Adolph (m/s) Norm Adolph (m/s) Left Median Anti Sensory (2nd Digit) Wrist ? 2.3 3.1 <3.6 21.3 >10 Wrist 2nd Digit 2.3 14.0 61 Left Ulnar Anti Sensory (5th Digit) Wrist ? 0.9 3.0 <3.7 16.6 >15.0 Wrist 5th Digit 0.9 14.0 156 Motor Summary Table ?Stim Site NR Onset (ms) Norm Onset (ms) O-P Amp (mV) Norm O-P Amp iAmp (mV) Amp (1st) (%) Site1 Site2 Delta-0 (ms) Dist (cm) Adolph (m/s) Norm Adolph (m/s) Left Median Motor (Abd Poll Brev) Wrist ? 2.9 <3.9 14.6 >4.5 17.0 100.0 Elbow Wrist 3.3 17.0 52 >45 Elbow ? 6.2 13.8 16.0 94.5 Left Ulnar Motor (Abd Dig Minimi) Wrist ? 2.6 <3.0 6.4 >5 7.5 100.0 B Elbow Wrist 2.6 15.0 58 >45 B Elbow ? 5.2 6.5 7.8 101.6 A Elbow B Elbow 1.9 10.0 53 >45 A Elbow ? 7.1 6.3 7.7 98.4 Comparison Summary Table ?Stim Site NR Peak (ms) Norm Peak (ms) P-T Amp (?V) Site1 Site2 Delta-P (ms) Norm Delta (ms) Left Median/Radial Dig I Comparison (Digit 1 - 10cm) Median ? 2.4 <2.9 448.5 Median Radial 0.0 Radial ? 2.4 <2.8 11.4 EMG ?Side Muscle Nerve Root Ins Act Fibs Psw Amp Dur Poly Recrt Int Pat Comment Left 1stDorInt Ulnar C8-T1 Nml Nml Nml Nml Nml 0 Nml Complete Left FlexCarRad Median C6-7 Nml Nml Nml Nml Nml 0 Nml Complete Left FlexCarpiUln Ulnar C8,T1 Nml Nml Nml Nml Nml 0 Nml Complete Left Biceps Musculocut C5-6 Nml Nml Nml Nml Nml 0 Nml Complete Left Triceps Radial C6-7-8 Nml Nml Nml Nml Nml 0 Nml Complete Left Deltoid Axillary C5-6 Nml Nml Nml Nml Nml 0 Nml Complete FINDINGS: All motor and sensory nerves tested showed normal latencies, amplitudes and conduction velocities. Concentric needle EMG was performed in selected muscles of the . Study revealed did not reveal signs of electric abnormalities as shown in the table above. IMPRESSION: 1. This is a normal study. 2. There is no electrodiagnostic evidence for median neuropathy, ulnar neuropathy, brachial plexopathy, or cervical radiculopathy. Thank you for your kind referral. Madison Cortez MD, MAKAYLA Board Certified, [place] [employer] and [employer] (ABPMR) Board Certified, [place] Board of Electrodiagnostic Medicine (ABEM) [place] [id number] [facility]
--- OUTSIDE RECORDS SUMMARY | 2025-07-28 15:38 | XMS_ITS | Patient Health Record ---
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 Name Role Phone Sudhir Martin Primary Care Provider Boris Whitmore Unavailable [phone] Allergies Allergen (clinical drug ingredient) Drug/Non Drug [...] Problem Status W/U Status Risk Notes Problem [id number] Encounter for screening for malignant neoplasm of colon (Z12.11) Active confirmed Problem 473028961 History of adenomatous polyp of colon (Z86.010) Active confirmed Problem 70081043 Diarrhea (R19.7) Active confirmed Problem 25988138 Weight loss (R63.4) Active confirmed Problem 187527976 Celiac disease (K90.0) Active confirmed Problem 91544546 Constipation, unspecified constipation type (K59.00) Active confirmed Problem 963101579 Positive autoantibody screening for celiac disease (R76.8) Active confirmed Problem 84031803 Diarrhea, unspecified type (R19.7) Active confirmed Plan [...] Kimbrough Joni , 11/02/2025 09:30:00 AM, [address] [place] [address], [address], [place], [address], Insurance Providers Payer Name Payer Address Payer Phone Subscriber Number Group Number Insured Name Patient Relationship to Insured Coverage Start Date Coverage End Date [facility] [address] [address] [place], [place] [id number] [employer] Self - patient is the insured Medical (General) History Medical History History ICD Code COPD/asthma Denies MO,DM,CVA,renal disease C.difficile in 2008--negative stool spec imens [...]
== END 2025-07-28 12:42 | disposition home or self-care (01) ==
LOC: HO.NEURO 12:41
PROVIDERS: PCP Physician Assistant
DX: R20.0 Anesthesia of skin (principal); R20.2 Paresthesia of skin
CPT/HCPCS: 95886; 95909

== ENCOUNTER → 2025-07-28 12:45 | Outpatient (BNV) | payer OTHER, SELFPAY | PROVIDERS: PCP Physician Assistant; Visit Provider Physical Medicine & Rehabilitation | DX: R20.0 Anesthesia of skin (principal) | CPT/HCPCS: 95886; 95909 ==

== ENCOUNTER 2025-07-29 10:42 | Outpatient (AMB) | payer OTHER, SELFPAY ==
[2025-07-29 10:44] VITALS: BP 140/84; PULSE 84; TEMP 36.2; O2SAT 95; BMI 37.2
--- NOTE | 2025-07-29 10:44 | MHC.PC.OV ---
Vital Signs 07/29/25 10:44 Height 5 ft 2 in Weight 203 lb 7.787 oz BMI 37.2 BP 140/84 H Blood Pressure Location Lt brachial Position Sitting Pulse 84 Pulse Source Pulse Oximeter Temp 97.1 F Temp Source Temporal Artery Scan Pulse Oximetry (%) 95 Oxygen Delivery Method Room Air Intake Visit Reasons: [facility] 07/25 Allergies cat dander (CATS) Allergy (Mild, Verified 07/29/25 10:49) HAYFEVER Chocolate Allergy (Mild, Verified 07/29/25 10:49) HEADACHES dog dander (DOGS) Allergy (Mild, Verified 07/29/25 10:49) HAYFEVER Environmental Allergy (Mild, Uncoded 07/29/25 10:49) HAYFEVER yellow jackets Allergy (Uncoded 07/29/25 10:49) Anaphylaxis Tobacco use date assessed: 07/29/25 Fall risk assessment: 2 + Falls in past year Last assessed Fall Risk: 07/29/25 Dental Screening Dental Screen Date: 07/29/25 Did you have a dental visit in the last 12 months?: No Did you have a dental problem in the last 6 months where you did not have access to dental care?: No Was dental information given to patient?: Patient declined HPI [facility] 07/25 HPI Details Patient is a 64 year old female here today for an ER follow-up visit. She has been to the ER several times recently due to falls and lower back pain. She has gotten CTs of her head cervical spine along with her abdomen and pelvis without any acute significant findings bleeds or breaks. Sinusitis: Patient reports having increased sinus congestion and sinus tenderness over the last week. She is asking for Flonase and Claritin D and antibiotic for possible sinus infection. She does have a left orbital edema noted .. Frequent falling: Likely multifactorial --> The patient reports a history of lumbar disc disease, which has been causing significant discomfort and mobility issues. She has been advised to consider a spinal stimulator to manage the pain associated with this condition. The patient also has Parkinson's disease, which contributes to her mobility challenges and increases her risk of falls. She uses a walker to aid in ambulation and has experienced multiple falls, leading to emergency room visits. PENDING SALE TO [facility] Medical History Vitamin B12 deficiency Hx of deep venous thrombosis Microcytic anemia COPD with emphysema Prerenal azotemia Toxic metabolic encephalopathy Transaminitis Allergies Chronic allergic rhinitis Asthma-COPD overlap syndrome COPD exacerbation COVID-19 History of abnormal cervical Pap smear Spinal stenosis, cervical region Peripheral polyneuropathy Spondylosis of cervical spine Spondylosis of lumbar spine Cocaine abuse Alcohol abuse Hepatitis Heart murmur History of cocaine abuse History of heroin abuse Hydradenitis Former cigarette smoker Recovering alcoholic GERD (gastroesophageal reflux disease) Lumbago with sciatica, left side Arthritis Back pain On anticoagulant therapy DVT (deep venous thrombosis) History of celiac disease Anxiety Panic attacks Depression PTSD (post-traumatic stress disorder) Parkinson disease History of frequent headaches Asthma Surgical History H/O excision of ganglion cyst Hx of esophagogastroduodenoscopy History of carpal tunnel surgery of left wrist Hx of nasal septoplasty History of hemorrhoidectomy Hx of colonoscopy Family History Mother No problems noted. Social History Housing: Apartment Are you a primary child care lead teacher to a significant other at home: No Do you presently have visiting nurse or other home services: Yes Alcohol intake: former Year quit: 2003 Comment: was seen at [facility]-called for note Patient Tobacco Use Status: Current everyday Tobacco user Tobacco use type: Cigarette Cigarette Packs Per Day: 1 Cigarettes Per Day: 20 Years Smoked: 45 Packs Per Year: 45 Packs per year/per ci.00 e-Cigarette/Vaping Use: Former Use Second Hand Smoke Exposure: Yes service: No Current occupational status: disabled Cognitive needs: Yes (back brace) Hearing needs: No Vision needs: Yes Questionnaire PHQ-9 Over the last 2 weeks, how often have you been bothered by any of the following problems? 1. Little interest or pleasure in doing things: nearly every day 2. Feeling down, depressed, or hopeless: nearly every day 3. Trouble falling or staying asleep, or sleeping too much: not at all 4. Feeling tired or having little energy: not at all 5. Poor appetite or overeating: nearly every day 6. Feeling bad about yourself - or that you are a failure or have let yourself or your family down: not at all 7. Trouble concentrating on things, such as reading the newspaper or watching television: not at all 8. Moving or speaking so slowly that other people could have noticed. Or the opposite - being so fidgety or restless that you have been moving around a lot more than usual: not at all 9. Thoughts that you would be better off or of hurting yourself in some way: not at all Total score: 9 Depression Screening Interpretation: Positive Depression Screening Follow-up: Existing condition and In treatment Depression Screening Done: Yes 38119 - PHQ-9 Billing: Yes Source: Developed by Drs. Boris Garcia, Qian Bullard, Hector Herzog and colleagues, with an educational miguel a from [employer]. Thrive Questionnaire Date Thrive assessed: 04/08/25 I am a: Patient What is your living situation today?: I have a steady place to live Within the past 12 months, did the food you bought not last and you didn't have the money to get more?: Never true Within the past 12 months, did you worry whether your food would run out before you got money to buy more?: Never true Do you have trouble paying for medicines?: No Do you have trouble getting transportation to medical appointments?: No Do you have trouble paying your heating and electricity bill?: No Do you have trouble taking care of your child, family member or friend?: No Do you have trouble with day-to-day activities such as bathing, preparing meals, shopping, managing finances, etc.?: Yes Are you currently unemployed and looking for a job?: No Are you interested in more education?: Yes Please select the resources that you would like help with: None Currently or been in a relationship where the following occur: No concerns reported THRIVE Score: 0 AUDIT C Alcohol Use Questionnaire (AUDIT-C) 1. How often do you have a drink containing alcohol?: Never 3. How often do you have six or more drinks on one occasion?: Never Total Score: 0 LUISA-7 AMB Questionnaire LUISA-7 Date LUISA - 7 assessed: 07/15/25 Feeling nervous, anxious, or on edge: 0 = Not at all Not being able to stop or control worryin = Not at all Worrying too much about different things: 0 = Not at all Trouble relaxin = Not at all Being so restless that it is hard to sit still: 2 = More than half the days Becoming easily annoyed or irritable: 0 = Not at all Feeling afraid as if something awful might happen: 0 = Not at all Total LUISA-7 score (0-4 normal; 5-9 mild; 10-14 moderate; 15-21 severe): 2 Source: Developed by Drs. Boris Garcia, Qian Bullard, Hector Herzog and colleagues, with an educational miguel a from [employer]. Review of Systems Const Denies headache(s) Eyes Denies loss of vision ENT Denies vertigo, Denies dizziness, Denies headache(s) and Denies sore throat Card Denies chest pain, Denies leg edema and Denies lightheadedness Resp Denies cough, Denies hemoptysis and Denies wheezing GI Denies abdominal pain, Denies melena, Denies constipation, Denies diarrhea and Denies vomiting Denies urinary frequency, Denies dysuria and Denies urinary urgency Musc Denies arthralgias, Denies joint swelling, Denies numbness and Denies tingling Neuro Denies Abnormal speech present, Denies behavioral changes, Denies vertigo, Denies dizziness, Denies headache(s), Denies loss of vision, Denies memory loss, Denies numbness and Denies tingling Psych Denies anxiety, Denies behavioral changes, Denies depression, Denies memory loss and Denies panic attacks Carlos/Lymph Denies easy bleeding and Denies easy bruising Aller/Immun Denies wheezing Physical exam (Primary Care) Vital Signs: Last Vital Signs Temp 97.1 F 07/29/25 10:44 Pulse 84 07/29/25 10:44 BP 140/84 H 07/29/25 10:44 Pulse Ox 95 07/29/25 10:44 Oxygen Delivery Method Room Air 07/29/25 10:44 BMI result Body Mass Index 37.2 Tobacco/Smoking Status: Tobacco use Status Tobacco use date assessed 07/15/25 07/29/25 10:49 Patient Tobacco Use Status Current everyday Tobacco 07/29/25 10:49 Tobacco use type Cigarette 07/29/25 10:49 e-Cigarette/Vaping Use Former Use 07/29/25 10:49 Are you ready to quit: No Tobacco cessation counseling provided: Yes Items discussed: Nicotine replacement Relapse Prevention: discussed the importance of a supportive environment, discussed negative mood or depression after quitting, weight gain after smoking is common and discussed dietary, exercise and/or lifestyle changes Number of minutes spent counselin CPT code: 24855 - 4-10 Minutes Depression Screening Interpretation: Positive Depression Screening Follow-up: Existing condition and In treatment Thrive Assessment: Date of Thrive Assessment Date Thrive assessed 04/08/25 07/29/25 10:49 Currently or been in a relationship where the following occur: No concerns reported Const General: healthy appearing, no acute distress, alert and awake Nutritional Appearance: well nourished Orientation/consciousness: oriented to person, oriented to place and oriented to time HENMT Ears: TM's normal bilaterally General nose exam: Normal nasal mucous membranes and turbinates present Eyes Conjunctivae: conjunctivae normal Sclerae: sclerae normal Pupils: Equal, round and reactive pupils present Neck Neck: Yes no lymphadenopathy and Yes no JVD Thyroid: Thyroid normal Carotids: no bruits Resp Effort & Inspection: normal respiratory effort and not tachypneic Auscultation: no crackles, no rales, no rhonchi and no wheezes Cardio Rate: regular rate Rhythm: regular rhythm Heart sounds: no murmurs and normal S1 and S2 GI Palpation (GI): Soft to palpation, nontender, no hepatomegaly and no splenomegaly Auscultation: normal bowel sounds Skin General skin exam: no rashes or lesions noted and dry skin Neuro General: oriented to person, oriented to place and oriented to time Cranial nerves: Yes Equal, round and reactive pupils present Speech: No Abnormal speech present Gait exam (Neuro): Normal gait present Motor exam (neuro): no tremor noted Extrem Right upper extremity: full ROM Left upper extremity: full ROM Right lower extremity: full ROM; no edema Left lower extremity: full ROM; no edema Psych Mental Status: mental status grossly normal Speech and movement: Normal speech and movement present Affect: normal affect Attitude: cooperative Thought process: Normal thought process present Coding Level of Care Code Est Pt Level 4 (53904) Diagnoses Allergy, initial encounter T78.40XA Encounter type: initial encounter Subacute maxillary sinusitis J01.00 Sinusitis location: maxillary Chronicity: subacute Spondylosis of lumbar spine M47.816 Lower extremity edema R60.0 Tobacco dependence F17.200 Additional Codes PHQ-9 - 61060 - PHQ-9 Billing: Yes ([id number]) Vital Signs *Quality* - CPT code: 45350 - 4-10 Minutes ([id number]) Assessment & Plan Assessment & Plan (1) Allergies: Code(s): T78.40XA - Allergy, unspecified, initial encounter Category: Medical Qualifiers: Encounter type: initial encounter Qualified Code(s): T78.40XA - Allergy, unspecified, initial encounter Plan: The patient has been prescribed antibiotics to address symptoms of sinusitis. She is also using Flonase and Claritin D for associated allergic rhinitis symptoms. (2) Sinusitis: Code(s): J32.9 - Chronic sinusitis, unspecified Category: Medical Qualifiers: Sinusitis location: maxillary Chronicity: subacute Qualified Code(s): J01.00 - Acute maxillary sinusitis, unspecified Plan: As above (3) Spondylosis of lumbar spine: Code(s): M47.816 - Spondylosis without myelopathy or radiculopathy, lumbar region Category: Medical Plan: The patient has been advised to consider a spinal stimulator to manage the pain associated with lumbar disc disease. Follow-up with an mobile paint specialist is recommended for further management. Currently patient using Tylenol, gabapentin and tramadol. She feels that her pain management he is not effective including tramadol. (4) Lower extremity edema: Code(s): R60.0 - Localized edema Category: Medical Plan: Patient continues to have bilateral lower extremity edema noted. Will restart Lasix on an dynfp-[id number]-ddm basis to help reduce hyponatremia. Lower extremity edema may contributing to patient's falls as well. (5) Tobacco dependence: Code(s): F17.200 - Nicotine dependence, unspecified, uncomplicated Category: Medical Plan: As per HPI patient unfortunately continues to smoke cigarettes daily. She has tried nicotine replacement and Chantix in the past though has been ineffective. Return nicotine replacement again though she declines Medications: New fluticasone propionate 50 mcg/actuation (Flonase Allergy Relief) administer into each nostril 1 spray intranasal DAILY PRN 2 applicators 2RF allergy symptoms 60 days loratadine-pseudoephedrine 10-240 mg ER (Claritin-D 24 Hour) 1 tab PO DAILY 30 tabs 1RF 30 days T78.40XA - Allergy, unspecified, initial encounter amoxicillin 875 mg PO BID 14 tabs 0RF 7 days J32.9 - Chronic sinusitis, unspecified acetaminophen-codeine 300-30 mg 1 tab PO Q8H PRN 12 tabs 0RF pain 4 days M54.16 - Radiculopathy, lumbar region Discontinued tramadol Discontinued Reason: Doctor's Order 50 mg PO BID 10 days PRN 20 tabs 0RF pain M54.16 - Radiculopathy, lumbar region Resumed furosemide 20 mg PO Q OTHER DAY 15 tabs 2RF 30 days M79.89 - Other specified soft tissue disorders furosemide 20 mg PO DAILY 90 days 90 tabs 0RF M79.89 - Other specified soft tissue disorders
== END 2025-07-29 12:00 | disposition home or self-care (01) ==
LOC: HO.HMCH 10:42
PROVIDERS: PCP Physician Assistant; Visit Provider Physician Assistant
DX: T78.40XA Allergy, unspecified, initial encounter (principal); J01.00 Acute maxillary sinusitis, unspecified; M47.816 Spondylosis without myelopathy or radiculopathy, lumbar region; R60.0 Localized edema; F17.200 Nicotine dependence, unspecified, uncomplicated

== ENCOUNTER → 2025-07-29 10:42 | Outpatient (BNVA) | payer OTHER, SELFPAY | PROVIDERS: PCP Physician Assistant; Visit Provider Physician Assistant | DX: T78.40XA Allergy, unspecified, initial encounter (principal); J01.00 Acute maxillary sinusitis, unspecified; M47.816 Spondylosis without myelopathy or radiculopathy, lumbar region; R60.0 Localized edema; F17.210 Nicotine dependence, cigarettes, uncomplicated; Z79.891 Long term (current) use of opiate analgesic; Z13.31 Encounter for screening for depression | CPT/HCPCS: 96127; 99212 ==

== ENCOUNTER 2025-08-12 10:31 | Outpatient (REF) | payer OTHER, SELFPAY ==
--- NOTE | ~2025-08-12 | XR_ITS ---
EXAMINATION: XR HIP, RIGHT CLINICAL INFORMATION: RT ANTERIOR PAIN,RECENT FALL,HX OF OSTEOPOROSIS COMPARISON: None available. TECHNIQUE: AP upright, AP , and frog-leg lateral views of the right hip. FINDINGS: SI joints are unremarkable. Right hip joint demonstrates subtle axial joint space narrowing Minute marginal osteophyte is noted the acetabular roof. No fracture is evident. XR/XR hip RT w PEL1V IMPRESSION: Subtle degenerative changes of the right hip joint of question of significance. Electronically signed by: Manohar Otoole MD 08/12/2025 11:47 AM EDT
--- NOTE | ~2025-08-12 | XR_ITS ---
Examination: CR Xr Lumbar Spine 4v Min TECHNIQUE: AP, bilateral oblique, lateral, lateral spot x-rays lumbar spine INDICATION: M54.16 - Radiculopathy, lumbar region Prior: July 03, 2025 FINDINGS: Moderate stool and gas is present in the colon. There is also moderate small bowel gas. Vascular calcification is present in the abdominal aorta. There are 5 non-rib bearing lumbar segments. Vertebral body height and alignment is preserved. T12-L1: There is mild disc space narrowing. L1-L2: There is minimal disc space narrowing and endplate osteophytes. L2-L3: There is minimal disc space narrowing. L3-L4: Unremarkable L4-L5: There is mild facet sclerosis and osteophytes. L5-S1: There is moderate facet sclerosis and osteophytes. There is very subtle anterolisthesis. Oblique views demonstrate sclerosis in the L5 pars interarticularis region. There is irregularity of the surface of the left pars interarticularis region with questionable or incomplete pars defect. XR/XR lumbar spine 4V min IMPRESSION: Mild multilevel degenerative change is similar to the prior. Questionable pars intra-articular's defect at L5 on the left. Nonspecific bowel gas pattern with moderate colonic stool. Electronically signed by: Manohar Otoole MD 08/12/2025 11:52 AM EDT
== END 2025-08-12 10:32 | disposition home or self-care (01) ==
LOC: HO.XRAY 10:31
PROVIDERS: PCP Physician Assistant; Referring Provider Hospitalist; Visit Provider Physician Assistant
DX: M25.551 Pain in right hip (principal); M54.16 Radiculopathy, lumbar region; Z87.310 Personal history of (healed) osteoporosis fracture
CPT/HCPCS: 72110; 73502

== ENCOUNTER → 2025-08-12 10:44 | Outpatient (BNV) | payer OTHER, SELFPAY | PROVIDERS: PCP Physician Assistant; Referring Provider Hospitalist; Visit Provider Radiology Diagnostic Radiology | DX: M43.17 Spondylolisthesis, lumbosacral region (principal); M16.11 Unilateral primary osteoarthritis, right hip | CPT/HCPCS: 72110; 73502 ==

== ENCOUNTER 2025-09-10 12:54 | Outpatient (AMB) | payer OTHER, SELFPAY ==
[2025-09-10 13:05] VITALS: BMI 37.1
--- NOTE | 2025-09-10 13:05 | A.OFFVIS_ITS ---
Vital Signs 09/10/25 13:05 Height 5 ft 2 in Weight 203 lb BMI 37.1 Intake Visit Reasons: OV: Left Hand EMG Review Intake Note: Ashly is a 64 year old right hand dominant female who presents today for discussion of their EMG results. Patient is most concerned for locking and catching of her left index and middle fingers. She has been using Diclofenac gel and Tylenol with some relief. She also takes Tramadol for other health problems. Patient continues wearing a left wrist brace however she does not think this is helping her much. IMPRESSION 07/28/25: 1. This is a normal study. 2. There is no electrodiagnostic evidence for median neuropathy, ulnar neuropathy, brachial plexopathy, or cervical radiculopathy. Allergies cat dander (CATS) Allergy (Mild, Verified 09/10/25 13:06) HAYFEVER Chocolate Allergy (Mild, Verified 09/10/25 13:06) HEADACHES dog dander (DOGS) Allergy (Mild, Verified 09/10/25 13:06) HAYFEVER Environmental Allergy (Mild, Uncoded 09/10/25 13:06) HAYFEVER yellow jackets Allergy (Uncoded 09/10/25 13:06) Anaphylaxis HPI HPI OV: Left Hand EMG Review: Details: Ashly is a 64 year old right hand dominant female who presents today for discussion of their EMG results. Patient is most concerned for locking and catching of her left index and middle fingers. She has been using Diclofenac gel and Tylenol with some relief. She also takes Tramadol for other health problems. Patient continues wearing a left wrist brace however she does not think this is helping her much. IMPRESSION 07/28/25: 1. This is a normal study. 2. There is no electrodiagnostic evidence for median neuropathy, ulnar neuropathy, brachial plexopathy, or cervical radiculopathy. [facility] Medical History Vitamin B12 deficiency Hx of deep venous thrombosis Microcytic anemia COPD with emphysema Prerenal azotemia Toxic metabolic encephalopathy Transaminitis Allergies Chronic allergic rhinitis Asthma-COPD overlap syndrome COPD exacerbation COVID-19 History of abnormal cervical Pap smear Spinal stenosis, cervical region Peripheral polyneuropathy Spondylosis of cervical spine Spondylosis of lumbar spine Cocaine abuse Alcohol abuse Hepatitis Heart murmur History of cocaine abuse History of heroin abuse Hydradenitis Former cigarette smoker Recovering alcoholic GERD (gastroesophageal reflux disease) Lumbago with sciatica, left side Arthritis Back pain On anticoagulant therapy DVT (deep venous thrombosis) History of celiac disease Anxiety Panic attacks Depression PTSD (post-traumatic stress disorder) Parkinson disease History of frequent headaches Asthma Surgical History H/O excision of ganglion cyst Hx of esophagogastroduodenoscopy History of carpal tunnel surgery of left wrist Hx of nasal septoplasty History of hemorrhoidectomy Hx of colonoscopy Family History Mother No problems noted. Social History Housing: Apartment Are you a primary child care associate teacher to a significant other at home: No Do you presently have visiting nurse or other home services: Yes Alcohol intake: former Year quit: 2003 Comment: was seen at [facility]-called for note Patient Tobacco Use Status: Current everyday Tobacco user Tobacco use type: Cigarette Cigarette Packs Per Day: 1 Cigarettes Per Day: 20 Years Smoked: 45 e-Cigarette/Vaping Use: Former Use Second Hand Smoke Exposure: Yes service: No Current occupational status: disabled Cognitive needs: Yes (back brace) Hearing needs: No Vision needs: Yes Physical Exam Vital Signs: BMI result Body Mass Index 37.1 Extrem Other: Neuro: Normal sensation of the tips of all digits of bilateral hands in the office today No thenar or intrinsic wasting. Good APB muscle firing and good finger cross. Vascular: Capillary refill brisk. ROM: Patient can make a fist and extend all their digits, with some significant difficulty with extension of the index finger of the left hand There is visible and palpable locking and catching of the left middle finger in the office today Skin: No lacerations or abrasions noted. General: No ecchymosis. No erythema or evidence of infection. [] Office Procedures AMB Tendon Injection Tendon Injection [id number]-[id number] Tendon Sheath Injection All charges added?: Procedure code (CPT) selection complete Assessment & Plan Assessment & Plan (1) Trigger finger, left middle finger: Code(s): M65.332 - Trigger finger, left middle finger Category: Medical Plan 1. Left middle finger trigger finger Patient is educated about this condition Patient is educated about the treatment options available Patient would like to proceed with steroid injection The risks and benefits of a steroid injection including but not limited to risk of damage to blood vessels, nerves, tendons, infection, skin bleaching, failure to improve symptoms, increased pain, and possible need for further injections or other intervention were discussed with the patient and the patient wishes to proceed with the steroid injection. Once consent was obtained, I sterilely prepped the area over the A1 bessy of the flexor tendon sheath of the left middle finger. I then injected the flexor tendon sheath with a combination of 1 mL of dexamethasone (4mg/ml), and 1% lidocaine. The patient tolerated the procedure well with no complications. If the patient continues to have locking and catching 4-6 weeks following this injection, they may call to schedule appointment to discuss alternative treatment options Follow-up prn Coding Level of Care Code Est Pt Level 3 (31148) Diagnoses Trigger finger, left middle finger M65.332 CPT Codes Tendon Injection - Tendon Injection 1: 14866-[id number] Tendon Sheath Injection ([id number])
--- OUTSIDE RECORDS SUMMARY | 2025-09-10 14:49 | XMS_ITS | Patient Health Record ---
Author Organization [facility] Address [address] [place] [address] Care Team Providers Care Manufacturing Inspector Name Role Phone Sudhir Martin Primary Care Provider Boris Whitmore Unavailable [phone] Allergies Allergen (clinical drug ingredient) Drug/Non Drug [...] at 5:00 p.m. the day before the procedure; Duration: 1 day 07/15/2020 Active tylenol 500 tab Oral twice a day Active Vitamin D-3 1000 UNIT 1 capsule Orally O nce a day Active MiraLax - 1 capful in 8 ounces of water Orally QD-BID for constipation; Duration: 30 days 07/14/2020 Active Imodium A-D 1 MG/7.5ML 1 tablet Orally prn Active clonazePAM 1 MG 1 tablet Orally Twic e a day Active Benadryl Allergy 25 MG 1 capsule as need ed Orally twice a day Active Cetirizine HCl 10 MG 1 tablet as needed Orally Once a day Active Fish Oil 1000 MG 1 capsule Orally Onc e a day; Duration: 30 day(s) Active Gabapentin 300 MG 1 capsule Orally QHS Active Ambien 5 MG 1 tablet at bedtime Orally Once a day Active Carbidopa-Levodopa 25-100 MG 1 tablet Orally Once a day; Duration: 30 day(s) Active Laxative Active Topiramate 200 [...] two tablets twice a day for one day; Duration: 1 day 07/14/2020 Active Zolpidem Tartrate 5 [...] Problem Status W/U Status Risk Notes Problem Screening for malignant neoplasm of colon (830772905) Encounter for screening for malignant neoplasm of colon (Z12.11) Active confirmed Problem History of adenomatous polyp of colon (836379496) History of adenomatous polyp of colon (Z86.010) Active confirmed Problem Diarrhea (64398264) Diarrhea (R19.7) Active confirmed Problem Weight loss (417761285) Weight loss (R63.4) Active confirmed Problem Celiac disease (699169198) Celiac disease (K90.0) Active confirmed Problem Constipation (92297951) Constipation, unspecified constipation type (K59.00) Active confirmed Problem Autoantibody screening for celiac disease positive (385784119) Positive autoantibody screening for celiac disease (R76.8) Active confirmed Problem Diarrhea (68746804) Diarrhea, unspecified type (R19.7) Active confirmed Plan [...] COLONOSCOPY 07/14/2020 Next Appt Details Provider Name:Boris Quinones , 11/02/2025 09:30:00 AM, [address] [place] [address], [place] [address], [place], [address], Insurance Providers Payer Name Payer Address Payer Phone Subscriber Number Group Number Insured Name Patient Relationship to Insured Coverage Start Date Coverage End Date [facility] [address] [address] [place], [place] [id number] PARDEEP SENIOR Self - patient is the insured Medical (General) History Medical History History ICD Code COPD/asthma Denies IN,DM,CVA,renal disease C.difficile in 2008--negative stool spec imens in July of 2015 EtOH abuse-sobriety since 11/2013 Substance abuse > 10 years a go--reports that she is HIV and Hepatitis C negative Depression/PTSD Kidney stones Colonoscopy in 07/2015--2 sma ll tubular adenomas removed; no colitis, normal bx from the TI Celiac disease serology in [facility] 2014 revealed an antigliadin IgG antibody of [...] Removal of lymph nodes near the left maosn ast Polyps removed from nose
== END 2025-09-10 13:50 | disposition home or self-care (01) ==
LOC: HO.HOS 12:55
PROVIDERS: PCP Physician Assistant
DX: M65.332 Trigger finger, left middle finger (principal)
CPT/HCPCS: 20550; 99213

== ENCOUNTER → 2025-09-10 12:54 | Outpatient (BNVA) | payer OTHER, SELFPAY | PROVIDERS: PCP Physician Assistant | DX: M65.332 Trigger finger, left middle finger (principal) | CPT/HCPCS: 20550; 99212; J1100; J2003 ==

== ENCOUNTER 2025-09-13 16:31 | Outpatient (REF) | payer OTHER, SELFPAY ==
--- NOTE | ~2025-09-13 | MR_ITS ---
EXAM: TECHNIQUE: Multiplanar multisequence imaging of the thoracic spine was performed from the C7-L1 without contrast. INDICATION: Spinal stenosis PRIOR: CT performed April 06, 2025 FINDINGS: Marrow and end-plates: There are no marrow replacing lesions. Mild degenerative endplate changes are noted in the mid to lower thoracic spine. Alignment: Vertebral body height and alignment is preserved. Soft tissues: Paraspinal soft tissues and major vascular structures are unremarkable. Cord: There is no abnormal cord signal. There is no hydrosyringomyelia. The termination of conus medullaris is within normal limits at the level of T12. T8/9: Minimal central protrusion indents the thecal sac without causing spinal stenosis or foraminal narrowing. T10-11: Left subarticular zone protrusion indents the thecal sac without causing spinal stenosis or foraminal narrowing. Thoracic disc levels not specifically described demonstrated no disc bulge, herniation, spinal stenosis, or foraminal narrowing. MR/MR thoracic spine wo con IMPRESSION: T11: Small left subarticular zone focal herniation indents the thecal sac without causing spinal stenosis or foraminal narrowing. Electronically signed by: Manohar Otoole MD 09/13/2025 05:27 PM EDT
--- OUTSIDE RECORDS SUMMARY | 2025-09-13 19:20 | XMS_ITS | Patient Health Record ---
Author Organization [facility] Address [address] [place] [address] Care Team Providers Care Gambling Dealer Name Role Phone Sudhir Martin Primary Care Provider Boris Whitmore Unavailable [phone] Allergies Allergen (clinical drug ingredient) Drug/Non Drug [...] Problem Screening for malignant neoplasm of colon (810406285) Encounter for screening for malignant neoplasm of colon (Z12.11) Active confirmed Problem History of adenomatous polyp of colon (042545527) History of adenomatous polyp of colon (Z86.010) Active confirmed Problem Diarrhea (58555063) Diarrhea (R19.7) Active confirmed Problem Weight loss (696513164) Weight loss (R63.4) Active confirmed Problem Celiac disease (579945404) Celiac disease (K90.0) Active confirmed Problem Constipation (44864285) Constipation, unspecified constipation type (K59.00) Active confirmed Problem Autoantibody screening for celiac disease positive (383651467) Positive autoantibody screening for celiac disease (R76.8) Active confirmed Problem Diarrhea (90090874) Diarrhea, unspecified type (R19.7) Active confirmed Plan [...] Provider Name:Boris Quinones , 11/02/2025 09:30:00 AM, [address] [place] [address], [place] [address], [place], [address], Insurance Providers Payer Name Payer Address Payer Phone Subscriber Number Group Number Insured Name Patient Relationship to Insured Coverage Start Date Coverage End Date [facility] [address] [address] [place], [place] [id number] PARDEEP SENIOR Self - patient is the insured Medical (General) History Medical History History ICD Code COPD/asthma Denies [place],DM,CVA,renal disease C.difficile in 2008--negative stool spec imens in July of 2015 EtOH abuse-sobriety since 11/2013 Substance abuse > 10 years a go--reports that she is HIV and Hepatitis C negative Depression/PTSD Kidney stones Colonoscopy in 07/2015--2 sma ll tubular adenomas removed; no colitis, normal bx from the TI Celiac disease serology in [facility] 2014 revealed an antigliadin IgG antibody of [...]
== END 2025-09-13 16:32 | disposition home or self-care (01) ==
LOC: HO.MRI 16:31
PROVIDERS: PCP Physician Assistant; Visit Provider Physician Assistant
DX: M48.061 Spinal stenosis, lumbar region without neurogenic claudication (principal)
CPT/HCPCS: 72146

== ENCOUNTER → 2025-09-13 16:37 | Outpatient (BNV) | payer OTHER, SELFPAY | PROVIDERS: PCP Physician Assistant; Visit Provider Radiology Diagnostic Radiology | DX: M48.04 Spinal stenosis, thoracic region (principal) | CPT/HCPCS: 72146 ==

== ENCOUNTER 2025-10-21 14:04 | Outpatient (AMB) | payer MEDICARE, MEDICAID, SELFPAY ==
--- NOTE | 2025-10-21 13:27 | A.OFFPC_ITS ---
Vital Signs 10/21/25 14:11 Height 5 ft 2 in Weight 182 lb 4 oz BMI 33.3 BP 120/74 Blood Pressure Location Lt brachial Position Sitting Respiration 16 Pulse 71 Pulse Source Pulse Oximeter Temp 97.3 F Temp Source Temporal Artery Scan Pulse Oximetry (%) 96 Oxygen Delivery Method Room Air Intake Visit Reasons: f/u COPD/ HTN Wheat Cleaner Required: No Accompanied by: Self / Same As Patient Allergies cat dander (CATS) Allergy (Mild, Verified 10/21/25 14:30) HAYFEVER Chocolate Allergy (Mild, Verified 10/21/25 14:30) HEADACHES dog dander (DOGS) Allergy (Mild, Verified 10/21/25 14:30) HAYFEVER Environmental Allergy (Mild, Uncoded 10/21/25 14:30) HAYFEVER yellow jackets Allergy (Uncoded 10/21/25 14:30) Anaphylaxis Medication List - Last Reconciled 10/21/25 by Sudhir Martin PA-C acetaminophen ER (Tylenol Arthritis Pain) 650 mg PO Q12H 30 days acetaminophen-codeine 300-30 mg 1 tab PO Q8H PRN 4 days [adult pullups As directed] albuterol sulfate 90 mcg/actuation (Ventolin HFA) 2 puffs inhalation QID PRN alendronate (Fosamax) 70 mg PO QWEEK 12 weeks amitriptyline 50 mg PO BEDTIME B complex and C 20-folic acid 1 mg (Wescaps) 1 cap PO DAILY 90 days back brace As directed baclofen 20 mg (2 x 10 mg) PO BEDTIME 90 days [bed pads As directed] betamethasone dipropionate 0.05% 1 appl topical DAILY PRN 4 weeks cane As directed cholecalciferol (vitamin D3) 50 mcg PO DAILY 90 days clonazepam 0.5 mg PO BID compr.stocking,knee,long,large As directed diaper,brief,adult,disposable As directed diclofenac sodium 1% 4 grams topical QID 30 days diphenhydramine HCl (Banophen) 25 mg PO Q8H 90 days [disposable face masks As directed] disposable gloves As directed duloxetine 60 mg PO DAILY Eliquis (apixaban) 5 mg PO BID 90 days NS epinephrine (EpiPen 2-Kamaljit) 0.3 mg (0.3 mL) IM ONCE PRN 30 days [EXERCISE BIKE As directed] fluticasone furoate-vilanterol 200-25 mcg/dose (Breo Ellipta) 1 inh inhalation DAILY 30 days fluticasone propionate 50 mcg/actuation (Flonase Allergy Relief) 1 spray intranasal DAILY PRN 60 days tkwnvawpmik-lbrdrvudd-hckzvwxs 200-62.5-25 mcg (Trelegy Ellipta) 1 inh inhalation DAILY 30 days folic acid 1 mg PO DAILY 90 days furosemide 20 mg PO Q OTHER DAY 30 days gabapentin 400 mg PO DAILY 30 days humidifiers (Cool Mist Humidifier) As directed incontinence pad, liner, disp As directed [Left wrist splint As directed] leg brace (Knee Support Brace) Need for oven unloader left knee brace with medial support lidocaine 5% 1 patch topical DAILY 30 days lisinopril 2.5 mg PO DAILY 90 days loperamide 2 mg PO Q8H PRN 7 days magnesium oxide 400 mg PO BEDTIME montelukast 10 mg PO DAILY 90 days omeprazole 20 mg PO DAILY 90 days polyvinyl alcohol 1.4% drps ophthalmic (eye) ONCE primidone 100 mg (2 x 50 mg) PO BID 3 months [round raised toilet seat As directed] [Scooter As directed] [soft neck brace As directed] [Soft TLSO with shoulder straps As directed] topiramate 200 mg PO BID 90 days walker (Ultra-Light Rollator misc) As directed zolpidem 5 mg PO BEDTIME zolpidem 5 mg PO BEDTIME Tobacco use date assessed: 07/29/25 Fall risk assessment: 2 + Falls in past year Last assessed Fall Risk: 10/21/25 Dental Screening Dental Screen Date: 07/29/25 HPI f/u COPD/ HTN HPI Details Patient is a 65-year-old female here today for a follow-up visit. ? Patient has a past medical history significant for polysubstance abuse, spinal stenosis, anxiety, depression, pernicous anemia, DVT ( left leg), parkinsons.? Concern--> She has a history of deep vein thrombosis and is on Eliquis. She is scheduled for a neurostimulator trial, for which she needs a clearance letter regarding stopping her Eliquis. --> also she reports having sinus conges tion and nasal pain along with fatigue. She usually feels this way when she has a sinus infection. She reports when on antibiotic she feels much better. Tobacco dependency: Patient continues to smoke. Has tried Chantix though not effective. She declines my offer to start nicotine replacement She does understand she needs to quit smoking .. Class 1 Obese: She has been able to be more physically active and has been able to reduce her weight since last office visit.. Of note lower extremities are not as edematous.. She reports she has been trying a low-calorie diet and does do as much physical activity as she can given her tremor disorder and Parkinson's disorder. . .. .. PTSD: Is followed by a psychiatrist and a mental health therapist. Was using Topamax for her PTSD disorder though does admit to taking a bit more Topamax to help her with weight loss though had caused some disorientation and an acute kidney injury leading to hospital admission recently. .. Lumbar Spinal stenosis: She is now wearing a lumbar support brace. She has seen neurosurgeon in the past about her neck in the past though was not deemed a surgical candidate MRI of lumbar spine-- >3. Minimal to mild disc bulges at L1-2, L3-4 and L4-5. 4. L5-S1 facet arthropathy. She has done physical therapy and currently using a Rollator walker. She has d one injections in her lower back that have been too effective. She is due for trial of a neurostimulator in her low back and needs to hold her Eliquis prior to procedure .. Parkinsons: Sees a neurologist, continues on primidone for her tremor. Apparently carbidopa levodopa has been discontinued. ? Also followed for a seizure disorder and denies any recent seizure activity. .? She reports her balance has gotten wo rse, does report recent fall.? She is interested in seeing a physical therapist for balance training. .. .. h/o polysubtance abuse ( alcohol, crack cocain) : Has been sober since 2013.? She is in a fellowship (AA/ NA) . Major depressive disorder/ generalized anxiety disorder:? She is followed psychiatrist now who manages her mental health medications. She feels her depression is fairly well managed at this time.?? She reports he continues to have trouble with sleep even with use of trazodone, Benadryl and gabapentin at night.? [facility] Medical History Vitamin B12 deficiency Hx of deep venous thrombosis Microcytic anemia COPD with emphysema Prerenal azotemia Toxic metabolic encephalopathy Transaminitis Allergies Chronic allergic rhinitis Asthma-COPD overlap syndrome COPD exacerbation COVID-19 History of abnormal cervical Pap smear Spinal stenosis, cervical region Peripheral polyneuropathy Spondylosis of cervical spine Spondylosis of lumbar spine Cocaine abuse Alcohol abuse Hepatitis Heart murmur History of cocaine abuse History of heroin abuse Hydradenitis Former cigarette smoker Recovering alcoholic GERD (gastroesophageal reflux disease) Lumbago with sciatica, left side Arthritis Back pain On anticoagulant therapy DVT (deep venous thrombosis) History of celiac disease Anxiety Panic attacks Depression PTSD (post-traumatic stress disorder) Parkinson disease History of frequent headaches Asthma Surgical History H/O excision of ganglion cyst Hx of esophagogastroduodenoscopy History of carpal tunnel surgery of left wrist Hx of nasal septoplasty History of hemorrhoidectomy Hx of colonoscopy Family History Mother No problems noted. Social History Housing: Apartment Are you a primary hospice spiritual care coordinator to a significant other at home: No Do you presently have visiting nurse or other home services: Yes Alcohol intake: former Year quit: 2003 Comment: was seen at [facility]-called for note Patient Tobacco Use Status: Current everyday Tobacco user Tobacco use type: Cigarette Cigarette Packs Per Day: 1 Cigarettes Per Day: 20 Years Smoked: 45 e-Cigarette/Vaping Use: Former Use Second Hand Smoke Exposure: Yes service: No Current occupational status: disabled Cognitive needs: Yes (back brace) Hearing needs: No Vision needs: Yes Questionnaire Thrive Questionnaire Date Thrive assessed: 04/08/25 AUDIT C Alcohol Use Questionnaire (AUDIT-C) 1. How often do you have a drink containing alcohol?: Never 3. How often do you have six or more drinks on one occasion?: Never Total Score: 0 LUISA-7 AMB Questionnaire LUISA-7 Date LUISA - 7 assessed: 07/15/25 Source: Developed by Drs. Boris Garcia, Qian Bullard, Hector Herzog and colleagues, with an educational miguel a from [place]. Review of Systems Const Denies headache(s) Eyes Denies loss of vision ENT Denies vertigo, Denies dizziness, Denies headache(s) and Denies sore throat Card Denies chest pain, Denies leg edema and Denies lightheadedness Resp Denies cough, Denies hemoptysis and Denies wheezing GI Denies abdominal pain, Denies melena, Denies constipation, Denies diarrhea and Denies vomiting Denies urinary frequency, Denies dysuria and Denies urinary urgency Musc Denies arthralgias, Denies joint swelling, Denies numbness and Denies tingling Neuro Denies Abnormal speech present, Denies behavioral changes, Denies vertigo, Denies dizziness, Denies headache(s), Denies loss of vision, Denies memory loss, Denies numbness and Denies tingling Psych Denies anxiety, Denies behavioral changes, Denies depression, Denies memory loss and Denies panic attacks Carlos/Lymph Denies easy bleeding and Denies easy bruising Aller/Immun Denies wheezing Physical exam (Primary Care) Vital Signs: Last Vital Signs Temp 97.3 F 10/21/25 14:11 Pulse 71 10/21/25 14:11 Resp 16 10/21/25 14:11 BP 120/74 10/21/25 14:11 Pulse Ox 96 10/21/25 14:11 Oxygen Delivery Method Room Air 10/21/25 14:11 BMI result Body Mass Index 33.3 BMI Assessment/Plan discussion: High BMI High, discussed plan: lifestyle, weight reduction, dietary and physical activity Tobacco/Smoking Status: Tobacco use Status Tobacco use date assessed 07/29/25 10/21/25 13:28 Patient Tobacco Use Status Current everyday Tobacco 10/21/25 13:28 Tobacco use type Cigarette 10/21/25 13:28 e-Cigarette/Vaping Use Former Use 10/21/25 13:28 Are you ready to quit: Yes Tobacco cessation counseling provided: Yes Items discussed: Nicotine replacement Relapse Prevention: discussed the importance of a supportive environment, discussed negative mood or depression after quitting, weight gain after smoking is common and discussed dietary, exercise and/or lifestyle changes Number of minutes spent counselin CPT code: 67657 - 4-10 Minutes Thrive Assessment: Date of Thrive Assessment Date Thrive assessed 04/08/25 10/21/25 13:28 Const General: healthy appearing, no acute distress, alert and awake Nutritional Appearance: well nourished Orientation/consciousness: oriented to person, oriented to place and oriented to time HENMT Ears: TM's normal bilaterally General nose exam: Normal nasal mucous membranes and turbinates present Eyes Conjunctivae: conjunctivae normal Sclerae: sclerae normal Pupils: Equal, round and reactive pupils present Neck Neck: Yes no lymphadenopathy and Yes no JVD Thyroid: Thyroid normal Carotids: no bruits Resp Effort & Inspection: normal respiratory effort and not tachypneic Auscultation: no crackles, no rales, no rhonchi and no wheezes Cardio Rate: regular rate Rhythm: regular rhythm Heart sounds: no murmurs and normal S1 and S2 GI Palpation (GI): Soft to palpation, nontender, no hepatomegaly and no splenomegaly Auscultation: normal bowel sounds Skin General skin exam: no rashes or lesions noted and dry skin Neuro General: oriented to person, oriented to place and oriented to time Cranial nerves: Yes Equal, round and reactive pupils present Speech: No Abnormal speech present Gait exam (Neuro): Normal gait present Motor exam (neuro): no tremor noted Extrem Right upper extremity: full ROM Left upper extremity: full ROM Right lower extremity: full ROM; no edema Left lower extremity: full ROM; no edema Psych Mental Status: mental status grossly normal Speech and movement: Normal speech and movement present Affect: normal affect Attitude: cooperative Thought process: Normal thought process present Coding Level of Care Code Est Pt Level 4 (26739) Diagnoses Spondylosis of lumbar spine M47.816 Subacute maxillary sinusitis J01.00 Chronicity: subacute Sinusitis location: maxillary Tobacco dependence F17.200 Pre-op evaluation Z01.818 Additional Codes Vital Signs *Quality* - CPT code: 36641 - 4-10 Minutes ([id number]) Assessment & Plan Assessment & Plan (1) Spondylosis of lumbar spine: Code(s): M47.816 - Spondylosis without myelopathy or radiculopathy, lumbar region Category: Medical Plan: The patient has been advised to consider a spinal stimulator to manage the pain associated with lumbar disc disease. Follow-up with an follow up specialist is recommended for further management. Currently patient using Tylenol, gabapentin and tramadol. She feels that her pain management he is not effective including tramadol. --> A new clearance letter will be generated and faxed to the patient's him specialists for her upcoming neurostimulator procedure. This letter will correct a previous version and specify that she should hold Eliquis three days prior to the procedure and restart it three days (72 hours) after the procedure, as per the surgeon's request. (2) Sinusitis: Code(s): J32.9 - Chronic sinusitis, unspecified Category: Medical Qualifiers: Chronicity: subacute Sinusitis location: maxillary Qualified Code(s): J01.00 - Acute maxillary sinusitis, unspecified Plan: Will supply patient with dual antibiotics to help reduce her sinus and nasal symptoms, she quite regularly gets sinus infections. (3) Tobacco dependence: Code(s): F17.200 - Nicotine dependence, unspecified, uncomplicated Category: Medical Plan: As per HPI patient unfortunately continues to smoke cigarettes daily. Patient is interested in trying Chantix again to help her quit smoking. (4) Pre-op evaluation: Code(s): Z01.818 - Encounter for other preprocedural examination Category: Medical Plan: Patient is medically clear for needed spinal stimulator trial. A new clearance letter will be generated and faxed to the patient's him specialists for her upcoming neurostimulator procedure. This letter will correct a previous version and specify that she should hold Eliquis three days prior to the procedure and restart it three days (72 hours) after the procedure, as per the surgeon's request. Orders: Orders Microalbumin, Random (w Creat) 10/21/25 I10 - Essential (primary) hypertension Comprehensive [place]. Panel Fast 10/21/25 I10 - Essential (primary) hypertension Complete Blood Count no Diff 10/21/25 I10 - Essential (primary) hypertension Vitamin B12 and Folate 10/21/25 E53.8 - Deficiency of other specified B group vitamins Medications: New varenicline tartrate (Chantix Starting Month Box) PO PER PKG DIR 53 ea 0RF F17.200 - Nicotine dependence, unspecified, uncomplicated azithromycin For 250 mg dose pack: take 500 mg today (day 1), then 250 mg for 4 days (days 2-5) PO 6 tabs 0RF J01.10 - Acute frontal sinusitis, unspecified amoxicillin 875 mg PO BID 14 tabs 0RF 7 days J01.10 - Acute frontal sinusitis, unspecified Refilled fluticasone furoate-vilanterol 200-25 mcg/dose (Breo Ellipta) 1 inh inhalation DAILY 60 ea 11RF 30 days J01.10 - Acute frontal sinusitis, unspecified fluticasone furoate-vilanterol 200-25 mcg/dose (Breo Ellipta) 1 inh inhalation DAILY 30 days 60 ea 11RF pllkryevoxq-gkdaorgnt-wigzhljm 200-62.5-25 mcg (Trelegy Ellipta) 1 inh i nhalation DAILY 30 days 60 ea 12RF ufpzisoobro-vzuecnxxg-pcjfposc 200-62.5-25 mcg (Trelegy Ellipta) 1 inh inhalation DAILY 60 ea 12RF 30 days J01.10 - Acute frontal sinusitis, unspecified
[2025-10-21 14:11] VITALS: BP 120/74; PULSE 71; RESP 16; TEMP 36.3; O2SAT 96; BMI 33.3
--- OUTSIDE RECORDS SUMMARY | 2025-10-21 19:23 | XMS_ITS | Patient Health Record ---
Author Organization [facility] Address [address] [place] [address] Care Team Providers Care Overcaster Name Role Phone Sudhir Martin Primary Care Provider Boris Whitmore Unavailable [phone] Allergies Allergen (clinical drug ingredient) Drug/Non Drug Allergy documented on EMR Reaction Allergy Type Onset Date Status CATS (uncoded) Unknown Allergy Activ e CHOCOLATE (uncoded) Unknown Allergy Active DUST/Patient gets allergy shots every week (uncoded) Unknown Allergy Active EVERYTHING OUTSIDE (uncoded) Unknown Allergy Active fluoxetine Prozac Unknown Drug Allergy Active Reason For Referral No Information Medications Medication SIG (Take, Route, Frequency, Duration) Notes Start Date End Date Status MiraLax (colon prep) 8.3 ounce (238) grams mixed with Gatorade or Crystal Light orally begin at 5:00 p.m. the day before the procedure; Duration: 1 day 07/15/2020 Active tylenol 500 mg tab Oral twice a day Active Vitamin D-3 1000 UNIT Capsule 1 capsule Orally Once a day Active MiraLax - Powder 1 capful in 8 ounces of water Orally QD-BID for constipation; Duration: 30 days 07/14/2020 Active Imodium A-D 1 MG/7.5ML Tablet 1 tablet Orally prn Active clonazePAM 1 MG Tablet 1 tablet Orally T wice a day Active Benadryl Allergy 25 MG Tablet 1 capsule as needed Orally twice a day Active Cetirizine HCl 10 MG Tablet 1 tablet as needed Orally Once a day Active Fish Oil 1000 MG Capsule 1 capsule Orally Once a day; Duration: 30 day(s) Active Gabapentin 300 MG Capsule 1 capsule Orally QHS Active Ambien 5 MG Tablet 1 tablet at bedtime Orally Once a day Active Carbidopa-Levodopa 25-100 MG Tablet 1 tablet Orally Once a day; Duration: 30 day(s) Active Laxative Active Topiramate 200 MG Tablet 1 tablet Orally Once a day Active Lisinopril 10 MG Tablet 1 tablet Orally Once a day Not-Taking/PRN Eliquis 5 MG Tablet as directed Orally Active Meloxicam 7.5 MG Tablet 1 tablet Orally Once a day Not-Taking/PRN Primidone 50 MG Tablet as directed Orally Active Dulcolax (colon prep) 5 MG Tablet Delayed Release take at 3:00 p.m and 7:00p.m. Orally two tablets twice a day for one day; Duration: 1 day 07/14/2020 Active Zolpidem Tartrate 5 MG Tablet 1 tablet at bedtime Orally Once a day Active Immunizations Vaccine Route Administration Date Status Comme nts Influenza Unknown 07/19/2018 Administered Influenza Unknown 08/07/2018 Administered Influenza Unknown 07/19/2019 Administered Social History Tobacco Use: Social History Observation Description Date Details (start date - stop date) Current Smoker NA - NA Social History Tobacco Use: Social Info Question Answer Notes Tobacco Use/Smoking Patient is a current smoker How often do you smoke cigarettes? every day How many cigarettes a day do you smoke? 11-20 Additional Details Category Social Info Options Details Miscellaneous: Marital status: single Occupation: unemployed--disa bility Section Notes: Smoker 5 cigs QD; alcohol [...] Problem Screening for malignant neoplasm of colon (369649169) Encounter for screening for malignant neoplasm of colon (Z12.11) Active confirmed Problem History of adenomatous polyp of colon (790857651) History of adenomatous polyp of colon (Z86.010) Active confirmed Problem Diarrhea (49224994) Diarrhea (R19.7) Active confirmed Problem Weight loss (223238706) Weight loss (R63.4) Active confirmed Problem Celiac disease (653332341) Celiac disease (K90.0) Active confirmed Problem Constipation (00705536) Constipation, unspecified constipation type (K59.00) Active confirmed Problem Autoantibody screening for celiac disease positive (245670037) Positive autoantibody screening for celiac disease (R76.8) Active confirmed Problem Diarrhea (66956805) Diarrhea, unspecified type (R19.7) Active confirmed Plan [...] Provider Name:Boris Quinones , 11/02/2025 09:30:00 AM, [address] [place] [address], [address], [place], [address], Insurance Providers Payer Name Payer Address Payer Phone Subscriber Number Group Number Insured Name Patient Relationship to Insured Coverage Start Date Coverage End Date [facility] [address] [place] [id number] PARDEEP SENIOR Self - patient is the insured Medical (General) History Medical History History ICD Code COPD/asthma Denies ID,DM,CVA,renal disease C.difficile in 2008--negative stool spec imens in July of 2015 EtOH abuse-sobriety since 11/2013 Substance abuse > 10 years a go--reports that she is HIV and Hepatitis C negative Depression/PTSD Kidney stones Colonoscopy in 07/2015--2 sma ll tubular adenomas removed; no colitis, normal bx from [facility] revealed an antigliadin IgG [...]
== END 2025-10-21 14:55 | disposition home or self-care (01) ==
LOC: HO.HMCH 14:05
PROVIDERS: PCP Physician Assistant; Visit Provider Physician Assistant
DX: M47.816 Spondylosis without myelopathy or radiculopathy, lumbar region (principal); J01.00 Acute maxillary sinusitis, unspecified; F17.200 Nicotine dependence, unspecified, uncomplicated; Z01.818 Encounter for other preprocedural examination

== ENCOUNTER → 2025-10-21 14:04 | Outpatient (BNVA) | payer MEDICARE, MEDICAID, SELFPAY | PROVIDERS: PCP Physician Assistant; Visit Provider Physician Assistant | DX: Z01.818 Encounter for other preprocedural examination (principal); M47.816 Spondylosis without myelopathy or radiculopathy, lumbar region; J01.00 Acute maxillary sinusitis, unspecified; F17.200 Nicotine dependence, unspecified, uncomplicated; Z71.6 Tobacco abuse counseling | CPT/HCPCS: 99212 ==

== ENCOUNTER 2025-10-27 14:44 | Outpatient (AMB) | payer OTHER, SELFPAY ==
--- NOTE | 2025-10-27 14:58 | MHC.OFFVIS ---
Intake Visit Reasons: OV: Left Hand Numbness- Negative EMG Intake Note: Ashly 65 yr old right hand dominant female presents today for her follow up visit for her Left middle trigger finger s/p trigger injection done with Ramez Alcala om 09/10/25. States injection did not help. She is interested in surgery however she is having back surgery in a week and would like to have her trigger release a few months after. Also states she continues to have numbness in her left hand. Allergies cat dander (CATS) Allergy (Mild, Verified 10/27/25 15:03) HAYFEVER Chocolate Allergy (Mild, Verified 10/27/25 15:03) HEADACHES dog dander (DOGS) Allergy (Mild, Verified 10/27/25 15:03) HAYFEVER Environmental Allergy (Mild, Uncoded 10/27/25 15:03) HAYFEVER yellow jackets Allergy (Uncoded 10/27/25 15:03) Anaphylaxis HPI HPI OV: Left Hand Numbness- Negative EMG: Details: Ashly is a 65 year old right hand dominant woman who presents for a left middle trigger finger, S/P injection on 09/10/25 by OUMAR Alcala. She complains of locking & caching of her middle finger, which did not improve following her injection. She also complains of locking & catching of her left index finger. She would like to have surgery but says this needs to be done in a few months since she has back surgery coming up next week. She also complains of numbness in her left hand. Symptoms intermittent, but daily. She says her symptoms are similar to her right side before her carpal tunnel release, done at [facility] in the past. [facility] Medical History (Updated 10/27/25 @ 15:28 by Jorge Pandya) Vitamin B12 deficiency Hx of deep venous thrombosis Microcytic anemia COPD with emphysema Prerenal azotemia Toxic metabolic encephalopathy Transaminitis Allergies Chronic allergic rhinitis Asthma-COPD overlap syndrome COPD exacerbation COVID-19 History of abnormal cervical Pap smear Spinal stenosis, cervical region Peripheral polyneuropathy Spondylosis of cervical spine Spondylosis of lumbar spine Cocaine abuse Alcohol abuse Hepatitis Heart murmur History of cocaine abuse History of heroin abuse Hydradenitis Former cigarette smoker Recovering alcoholic GERD (gastroesophageal reflux disease) Lumbago with sciatica, left side Arthritis Back pain On anticoagulant therapy DVT (deep venous thrombosis) History of celiac disease Anxiety Panic attacks Depression PTSD (post-traumatic stress disorder) Parkinson disease History of frequent headaches Asthma Surgical History H/O excision of ganglion cyst Hx of esophagogastroduodenoscopy History of carpal tunnel surgery of left wrist Hx of nasal septoplasty History of hemorrhoidectomy Hx of colonoscopy Family History Mother No problems noted. Social History Housing: Apartment Are you a primary long term care phlebotomist to a significant other at home: No Do you presently have visiting nurse or other home services: Yes Alcohol intake: former Year quit: 2003 Comment: was seen at [facility]-called for note Patient Tobacco Use Status: Current everyday Tobacco user Tobacco use type: Cigarette Cigarette Packs Per Day: 1 Cigarettes Per Day: 20 Years Smoked: 45 e-Cigarette/Vaping Use: Former Use Second Hand Smoke Exposure: Yes service: No Current occupational status: disabled Cognitive needs: Yes (back brace) Hearing needs: No Vision needs: Yes Review of Systems Const All systems reviewed & are unremarkable except as noted in HPI and below Physical Exam Const General: cooperative, healthy appearing and no acute distress Orientation/consciousness: patient oriented x3 HEENT Head: Yes normocephalic and Yes atraumatic Eyes EOM: EOMs intact bilaterally Resp Effort & Inspection: normal respiratory effort and able to speak in complete sentences Cardio Jugular venous distension: no JVD Skin General skin exam: turgor normal Rashes: no rashes Neuro General: patient oriented x3 Extrem Other: Evaluation of Left Upper Extremity: The patient is alert, oriented, and in no acute distress Neuro: Median, Ulnar, Radial nerves motor and sensory intact and sensation is normal to the tips of all digits Vascular: Cap refill brisk ROM: She can make a fist and extend all her digits Visible catching of the middle finger, not for the index finger Tender over the index & middle finger a1 bessy Skin: No lacerations or abrasions. General: No Ecchymosis. No Erythema or evidence of infection. Nerve Conduction Study: Left-side only IMPRESSION: 1. This is a normal study. 2. There is no electrodiagnostic evidence for median neuropathy, ulnar neuropathy, brachial plexopathy, or cervical radiculopathy. Thank you for your kind referral. Madison Cortez MD, MAKAYLA 07/28/25 Psych Appearance: grossly normal Affect: normal affect Attitude: cooperative Assessment & Plan Assessment & Plan (1) Trigger index finger of left hand: Code(s): M65.322 - Trigger finger, left index finger Category: Medical (2) Trigger finger, left middle finger: Code(s): M65.332 - Trigger finger, left middle finger Category: Medical (3) Numbness and tingling in left hand: Code(s): R20.0 - Anesthesia of skin; R20.2 - Paresthesia of skin Category: Medical (4) Peripheral polyneuropathy: Code(s): G62.9 - Polyneuropathy, unspecified Category: Medical (5) Parkinson disease: Code(s): G20 - Parkinson's disease Category: Medical Qualifiers: Dyskinesia presence: with dyskinesia Fluctuating manifestations: without fluctuating manifestations Qualified Code(s): G20.B1 - Parkinson's disease with dyskinesia, without mention of fluctuations (6) Recovering alcoholic: Code(s): F10.21 - Alcohol dependence, in remission Category: Social Hx Plan Assessment & Plan: 1. Left middle finger trigger finger, S/P injection Date of injection: 09/10/25 by OUMAR Alcala 2. Left index finger trigger finger I educated her about this condition I discussed operative and non-operative treatment options The patient would like to proceed with surgery, however she is having back surgery next week and would not be able to have a trigger finger release for a few months I recommend surgery. and she is in agreement The risks and benefits of operative treatment were discussed with the patient and the patient wishes to proceed with surgery. These risks include, but are not limited to risk of damage to blood vessels, nerves, tendons, infection, recurrence, incomplete relief of preoperative symptoms, persistent pain, possible need for further surgery and the risks associated with regional blocks and anesthesia. The plan is to take the patient to the operating room sometime in the next few weeks for the following procedures: 1. Left index finger trigger release, under local 2. Left middle finger trigger release, under local All of the preoperative paperwork including the consent was reviewed today. All the patient's questions were answered. The patient understands that they will be contacted by our supervisor roller printing soon to schedule this procedure She denies Diabetes, heart, kidney issues She has Parkinsons, asthma-COPD overlap, Hx of DVT and is on Eliquis, MDD, PTSD, ETOH, cocain & heroin abuse. She walks using a walker but is supposed to be getting a wheelchair soon She says she does not take Opioid medication and manages her pain with Tylenol only She also takes Eliquis 3. Left hand numbness In all digits Symptoms intermittent, but daily NCS from 07/28/25 was normal Patient also complains of numbness in her lower extremities & has a Dx of peripheral polyneuropathy Scribed for Cinthya Pickett MD by Jorge Pandya, medical claims representative, on 10/27/25 at 3:20 PM, EST Medications: Discontinued fluticasone furoate-vilanterol 200-25 mcg/dose (Breo Ellipta) Discontinued Reason: Doctor's Order 1 inh inhalation DAILY 30 days 60 ea 11RF J01.10 - Acute frontal sinusitis, unspecified Coding Level of Care Code Est Pt Level 4 (48066) Diagnoses Trigger index finger of left hand M65.322 Trigger finger, left middle finger M65.332 Numbness and tingling in left hand R20.0; R20.2 Peripheral polyneuropathy G62.9 Parkinson's disease with dyskinesia without fluctuating manifestations G20.B1 Dyskinesia presence: with dyskinesia Fluctuating manifestations: without fluctuating manifestations Recovering alcoholic F10.21
--- OUTSIDE RECORDS SUMMARY | 2025-10-27 23:04 | XMS_ITS | Patient Health Record ---
Author Organization [facility] Address [address] [place] [address] Care Team Providers Care Sealer Operator Name Role Phone Sudhir Martin Primary Care Provider Boris Whitmore Unavailable [phone] Allergies Allergen (clinical drug ingredient) Drug/Non Drug [...] Problem Screening for malignant neoplasm of colon (411941384) Encounter for screening for malignant neoplasm of colon (Z12.11) Active confirmed Problem History of adenomatous polyp of colon (571243784) History of adenomatous polyp of colon (Z86.010) Active confirmed Problem Diarrhea (39115849) Diarrhea (R19.7) Active confirmed Problem Weight loss (067101101) Weight loss (R63.4) Active confirmed Problem Celiac disease (976983227) Celiac disease (K90.0) Active confirmed Problem Constipation (65963010) Constipation, unspecified constipation type (K59.00) Active confirmed Problem Autoantibody screening for celiac disease positive (804016642) Positive autoantibody screening for celiac disease (R76.8) Active confirmed Problem Diarrhea (88783556) Diarrhea, unspecified type (R19.7) Active confirmed Plan [...] Provider Name:Boris Quinones , 11/02/2025 09:30:00 AM, [address] [place] [address], [address], [place], [address], Insurance Providers Payer Name Payer Address Payer Phone Subscriber Number Group Number Insured Name Patient Relationship to Insured Coverage Start Date Coverage End Date [facility] [address] [place] [id number] PARDEEP SENIOR Self - patient is the insured Medical (General) History Medical History History ICD Code COPD/asthma Denies AR,DM,CVA,renal disease C.difficile in 2008--negative stool spec imens in July of 2015 EtOH abuse-sobriety since 11/2013 Substance abuse > 10 years a go--reports that she is HIV and Hepatitis C negative Depression/PTSD Kidney stones Colonoscopy in 07/2015--2 sma ll tubular adenomas removed; no colitis, normal bx from [facility] revealed an antigliadin IgG antibody of [...]
== END 2025-10-27 15:34 | disposition home or self-care (01) ==
LOC: HO.HOS 14:45
PROVIDERS: PCP Physician Assistant; Visit Provider Orthopaedic Surgery
DX: M65.322 Trigger finger, left index finger (principal); M65.332 Trigger finger, left middle finger; R20.0 Anesthesia of skin; R20.2 Paresthesia of skin; G62.9 Polyneuropathy, unspecified; G20.B1 Parkinson's disease with dyskinesia, without mention of fluctuations; F10.21 Alcohol dependence, in remission
CPT/HCPCS: 99214

== ENCOUNTER → 2025-10-27 14:44 | Outpatient (BNVA) | payer MEDICARE, MEDICAID, SELFPAY | PROVIDERS: PCP Physician Assistant; Visit Provider Orthopaedic Surgery | DX: M65.332 Trigger finger, left middle finger (principal); M65.322 Trigger finger, left index finger; R20.0 Anesthesia of skin; R20.2 Paresthesia of skin; G62.9 Polyneuropathy, unspecified; G20.B1 Parkinson's disease with dyskinesia, without mention of fluctuations; F10.21 Alcohol dependence, in remission | CPT/HCPCS: 99212 ==